=== PATIENT | female | born 1995 | race Caucasian/White ===

== ENCOUNTER → 2016-07-10 | Outpatient (CLI) | payer OTHER ==
[~2016-07-10] MED LIST: ACET-2650 PO; ACET250T3 PO; ACET500C21 PO; AMIT25TA9 PO; AMLO10TA2 PO; AMLO5TAB2 PO; AMOX-358 PO; AMOX500C2 PO; ASPI-587 PO; CALC-20 PO; CALC-783 PO; CARB15DR78 OU; CARV12.53 PO; CARV25TA PO; CEFU500T5 PO; CLCX100C PO; ERGO500028 PO; ESOM20CA32 PO; FERR-57 PO; FLUO10CA19 PO; FLUT16SP22 NS; FURO40TA4 PO; GABA-488 PO; HYDR-3923 PO; HYDR200T46 PO; ISOM1CAP PO; LEVO500T69 PO; LISI-556 PO; LISI10TA2 PO; LORA5TAB9 PO; MYCO500T3 PO; NORT25CA PO; OMEP20CA6 PO; ONDA4TAB8 PO; POTA20TA15 PO; POTA2TAB2 PO; PRD10T PO; PRED10TA PO; PREG75CA PO; RT-ALBUINH INH; SUCR1TAB PO; SULF1TAB35 PO; TACR0.5C6 PO; TRAM50TA2 PO; TRAZ-144 PO; TRAZ-28 PO; [UNRECOGNIZED DRUG - OTHER] IV
--- OUTSIDE RECORDS SUMMARY | 2016-07-10 12:00 | XMS REPORT | Continuity of Care Document ---
Author Author [facility] Organization [facility] Address Unknown Phone Unavailable Care Team Providers Care Stenotype Machine Operator Name Role Phone Juan Jarvis PCP [phone] Source Comments Some departments are not documenting in the electronic medical record. If you do not see the information that you expected, contact Release of Information in the Health Information Management department at [phone] for further assistance in locating additional records.[facility] Active Allergies and Adverse Reactions No Known [...] Tab 3 05/27/19 Active daily. Hold for , 16 resume 06/03/15 albuterol (VENTOLIN HFA, Inhale [...] by mouth Active (CALCIUM 500 PO) daily. esomeprazole DR(+) Take 20 mg by mouth every Active (NEXIUM) 20 mg capsule morning. hydroxychloroquine Take 200 mg by mouth Active [...] meal and a full glass of water. sulfamethoxazole-trimetho Take 1 Tab by mouth three Active prim (BACTRIM DS) 800-160 times weekly. mg tablet pregabalin (LYRICA) 75 mg Take 1 Cap by mouth at 90 Cap 1 06/11/19 Active capsule bedtime daily. 17 isometh/dichloral/acetam( Take one at the start of 18 Cap 1 07/05/19 Active +) (MIDRIN) 325/65/100 mg a headache, if symptoms 17 capsule not resolved may take another. No more than twice in one day. Indications: MIGRAINE tacrolimus (PROGRAF) 0.5 Take 1 Cap by mouth twice 180 Cap 3 07/09/19 Active mg capsule daily. 17 isometh/dichloral/acetam( Take one at the start of 18 Cap 0 10/11/19 07/05/19 Discontin +) (MIDRIN) 325/65/100 mg a headache, if symptoms 16 17 ued capsule not resolved may take another. No more than twice in one day. Indications: MIGRAINE nortriptyline (PAMELOR) Take 50 mg by mouth at 07/05/19 Discontin 50 mg capsule bedtime daily. 17 ued amoxicillin (AMOXIL) 500 Take 500 mg by mouth 06/11/19 Discontin mg capsule three times daily. 17 ued 03/22/2016 tacrolimus (PROGRAF) 1 mg Take 1 Cap by mouth twice 60 Cap 3 06/25/19 07/05/19 Discontin capsule daily. 17 17 ued Active Problems Problem Noted Date Migraine without aura and without status migrainosus, not intractable 2016 [facility]HELY ([facility]) [facility] [...] anti-cardiolipin antibiody - F/U in November in [place] Most Recent Encounters Date Type Specialty Providers Description 07/09/2016 [facility] Savannah Mcnair MD Chronic kidney disease, Encounter stage 2 (mild) 07/09/2016 Office Visit Allergy,Immunology and Paradise Bradley MD Arrived Rheumatology 07/09/2016 [facility] Savannah Mcnair MD Chronic kidney disease, Encounter stage 2 (mild) 07/09/2016 Office Visit Nephrology Savannah Mcnair MD CKD (chronic kidney disease), stage 2 (mild) (Primary Dx) 07/05/2016 Office Visit Neurology Leandro Dejesus MD Migraine without aura and without status migrainosus, not intractable (Primary Dx) 07/05/2016 Orders Only Nephrology Savannah Mcnair MD Lupus nephritis ([facility]) 07/02/2016 Telephone Nephrology Savannah Mcnair MD Medication Question; Headache; Nausea 06/25/2016 Telephone NephSavannah Graham MD Follow-up Phone Call - Medication adjustment 06/24/2016 Orders Only NephSavannah Graham, MD Lupus nephritis ([facility]) 06/17/2016 Telephone Nephrology Savannah Mcnair MD Results 06/11/2016 [facility] Savannah Mcnair MD Glomerular disease in Encounter systemic lupus erythematosus ([facility]) 06/11/2016 Hospital Radiology Paradise Bradley MD Encounter 06/11/2016 Office Visit Allergy,Immunology and Paradise Bradley MD Lupus nephritis ([facility]) Rheumatology (Primary Dx); Chronic pain of both knees; Systemic lupus erythematosus with glomerular disease, unspecified SLE type 06/11/2016 [facility] Savannah Mcnair MD Glomerular disease in Encounter systemic lupus erythematosus ([facility]) 06/11/2016 Office Visit Nephrology Savannah Mcnair MD Other systemic lupus erythematosus with glomerular disease ([facility]) (Primary Dx); CKD (chronic kidney disease), unspecified stage 06/11/2016 Telephone Allergy,Immunology and Paradise Bradley MD Other Rheumatology 06/11/2016 Orders Only Nephrology Savannah Mcnair MD Lupus nephritis ([facility]) 05/10/2016 Telephone Nephrology Savannah Mcnair MD Labs Only - labs 04/23/2016 Telephone Allergy,Immunology and Paradise Bradley MD Appointment Question Rheumatology Immunizations Name Dates Previously Given Next Due Flu Vaccine Trivalent=>3 01/27/2015 Yo (Preservative Free) Social History Tobacco Use Types Packs/Day Years Used Date Never Smoker Smokeless Tobacco: Never Used Alcohol Use Drinks/Week oz/Week Comments No 0 Standard 0.0 drinks or equivalent Last Filed Vital Signs Vital Sign Reading Time Taken Blood Pressure 138/97 07/09/2016 12:45 PM PARTICIPANT ADMINISTRATOR Pulse 83 07/09/2016 12:45 PM PARTICIPANT ADMINISTRATOR Temperature 36.7 C (98.1 F) 07/09/2016 12:45 PM PARTICIPANT ADMINISTRATOR Respiratory Rate 16 07/09/2016 12:45 PM PARTICIPANT ADMINISTRATOR Height 1.727 m (5' 7.99") 07/09/2016 12:45 PM PARTICIPANT ADMINISTRATOR Weight 116.756 kg (257 lb 6.4 07/09/2016 12:45 PM PARTICIPANT ADMINISTRATOR oz) Body Mass Index 39.15 07/09/2016 12:45 PM PARTICIPANT ADMINISTRATOR Oxygen Saturation 100% 03/28/2016 3:40 PM PARTICIPANT ADMINISTRATOR Plan of Care Date Type Specialty Providers Description 08/27/2016 Appointment Nephrology Savannah Mcnair MD [address] [facility] [address] [place] [address] [phone] (Fax) 08/27/2016 Appointment Allergy,Immunology and Paradise Bradley MD Rheumatology [address] [facility] [address] [place] [address] [phone] (Fax) 01/03/2017 Appointment Neurology Germain Nunez DO [address] [place] [address] [phone] (Fax) Health Maintenance Due Date Last Done Comments Physical (Comprehensive) 11/07/2002 Exam Hpv Vaccines (#1) 11/07/2006 Pertussis Vaccine 11/07/2006 Tetanus Vaccine 11/07/2012 Influenza Vaccine 01/10/2017 01/27/2015 Results from Last 3 Months ALBUMIN (07/09/2016 1:39 PM)Only the most recent of 4 results within the time period is included. Component Value Range Albumin 3.1 (L) 3.5-5.0 G/DL Specimen Blood BASIC METABOLIC PANEL (07/09/2016 1:39 PM)Only the most recent of 5 results within the time period is included. Component Value Range Sodium 137 137-147 MMOL/L Potassium 3.1 (L) 3.5-5.1 MMOL/L Chloride 107 98-110 MMOL/L CO2 23 21-30 MMOL/L Anion Gap 7 3-12 Glucose 93 70-100 MG/DL Blood Urea Nitrogen 12 7-25 MG/DL Creatinine 1.13 (H) 0.4-1.00 MG/DL Calcium 8.4 (L) 8.5-10.6 MG/DL eGFR Non >60Comment: >60 mL/min The eGFR is not validated for use in drug dosing adjustments. Continue to use estimated creatinine clearance per dosing reference text. Please contact the Clinical Pharmacist for questions. eGFR >60Comment: >60 mL/min The eGFR is not validated for use in drug dosing adjustments. Continue to use estimated creatinine clearance per dosing reference text. Please contact the Clinical Pharmacist for questions. Specimen Blood PROTEIN/CR RATIO,UR RAN (07/09/2016 12:14 PM)Only the most recent of 4 results within the time period is included. Component Value Range Protein, Random 1100 MG/DL Creatinine, Random 150 MG/DL Protein/CR ratio 7.3 URINALYSIS, MICROSCOPIC (07/09/2016 12:14 PM)Only the most recent of 5 results within the time period is included. Component Value Range WBCs,UA 0-2 0-2 /HPF RBCs,UA 2-10 0-3 /HPF MucousUA TRACE Hyaline Cast 0-2 Specimen Urine POC URINE DIPSTICK AUTO READ (07/09/2016)Only the most recent of 2 results within the time period is included. Component Value Range Urine Glucose POC norm Urine Bilirubin POC neg Urine Ketone POC neg Urine Specific [place] 1.015 POC Urine Blood POC 50 Urine PH POC 6 Urine Protein POC 500 Urine Urobilinogen POC norm Urine Nitrite POC neg Urine Leukocytes POC neg Specimen Urine URINALYSIS DIPSTICK (07/02/2016)Only the most recent of 3 results within the time period is included. Specimen Urine ANTI-UPPER [place] DNA,TITER (06/11/2016 1:36 PM) Component Value Range Anti-DNA Titer > MV=2867 <10 TITER ANTI-NUCLEAR AB(URSULA)-QUANT (06/11/2016 1:36 PM) Component Value Range URSULA Titer/Pattern > GQ=[id number]: HOMOGENEOUS <80 ANTI-DNA DOUBLE STRAND (06/11/2016 1:36 PM) Component Value Range DNA Double Strand AB SEE TITER <10 TITER Specimen Blood ANTI-NUCLEAR ANTIBODY(URSULA) (06/11/2016 1:36 PM) Component Value Range URSULA Screen SEE TITER <80 TITER Specimen Blood C4 COMPLEMENT 4 (06/11/2016 1:36 PM) Component Value Range Complemnt C4 31.0 10-49 MG/DL Specimen Blood C3 COMPLEMENT 3 (06/11/2016 1:36 PM) Component Value Range Complemnt C3 111.0 88-200 MG/DL Specimen Blood CBC AND DIFF (06/11/2016 1:36 PM) Component Value Range White Blood Cells 5.4 4.5-11.0 K/UL RBC 4.02 4.0-5.0 M/UL Hemoglobin 11.3 (L) 12.0-15.0 GM/DL Hematocrit 32.3 (L) 36-45 % MCV 80.4 80-100 FL MCH 28.1 26-34 PG MCHC 34.9 32.0-36.0 G/DL RDW 14.1 11-15 % Platelet Count 288 150-400 K/UL MPV 8.3 7-11 FL Neutrophils 53 41-77 % Lymphocytes 37 24-44 % Monocytes 8 4-12 % Eosinophils 1 0-5 % Basophils 1 0-2 % Absolute Neutrophil Count 2.90 1.8-7.0 K/UL Absolute Lymph Count 2.00 1.0-4.8 K/UL Absolute Monocyte Count 0.40 0-0.80 K/UL Absolute Eosinophil Count 0.10 0-0.45 K/UL Absolute Basophil Count 0.00 0-0.20 K/UL Specimen Blood KNEE 3 VIEWS BILATERAL (06/11/2016 1:16 PM) Impressions Findings/Impression: 1.Left knee: There are several small scattered eccentric lesions about the left knee with characteristics consistent with nonossifying fibromas. These lesions are sclerotic marginated to varying degrees. The most dominant lesion is in the proximal left fibular metadiaphysis. There is subtle expansion of the cortex overlying the proximal fibular lesion. There are 2 small lesions of the proximal left tibia. A single small 2 moderate size lesion is along the posterior medial aspect of the distal left femoral metadiaphysis. No other osseous lesions. Joint spaces are maintained. Normal alignment. No fractures. No joint effusion. 2.Right knee: There is a moderately proud centrally lucent sclerotic marginated eccentric lesion along the medial aspect of the distal tibial metadiaphysis with subtle expansion of the overlying cortex. Thickened rind of sclerosis forms the periphery of this lesion. There is an eccentric slightly expansile lesion along the medial aspect of the proximal tibial metadiaphysis with a thin line of sclerotic margination and lucent center. These lesions are consistent with nonossifying fibromas. No other osseous lesions. No fractures. Joint spaces maintained. No joint effusion. Normal alignment. Finalized by Esau Matute M.D. on 06/11/2016 1:45 PM. Dictated by Esau Matute M.D. on 06/11/2016 1:33 PM. Narrative Left knee 3 views, right knee 3 views. History: Chronic pain of both knees. Procedure Note Interface, Radiant Results - Tue Jun 11, 2016 1:48 PM PARTICIPANT ADMINISTRATOR Left knee 3 views, right knee 3 views. History: Chronic pain of both knees. IMPRESSION Findings/Impression: 1. Left knee: There are several small scattered eccentric lesions about the left knee with characteristics consistent with nonossifying fibromas. These lesions are sclerotic marginated to varying degrees. The most dominant lesion is in the proximal left fibular metadiaphysis. There is subtle expansion of the cortex overlying the proximal fibular lesion. There are 2 small lesions of the proximal left tibia. A single small 2 moderate size lesion is along the posterior medial aspect of the distal left femoral metadiaphysis. No other osseous lesions. Joint spaces are maintained. Normal alignment. No fractures. No joint effusion. 2. Right knee: There is a moderately proud centrally lucent sclerotic marginated eccentric lesion along the medial aspect of the distal tibial metadiaphysis with subtle expansion of the overlying cortex. Thickened rind of sclerosis forms the periphery of this lesion. There is an eccentric slightly expansile lesion along the medial aspect of the proximal tibial metadiaphysis with a thin line of sclerotic margination and lucent center. These lesions are consistent with nonossifying fibromas. No other osseous lesions. No fractures. Joint spaces maintained. No joint effusion. Normal alignment. Finalized by Esau aMtute M.D. on 06/11/2016 1:45 PM. Dictated by Esau Matute M.D. on 06/11/2016 1:33 PM.
--- NOTE | 2016-07-10 19:39 | Diagnostic Imaging Report ---
INDICATION: Port placement. IMPRESSION: Catheter projects in good alignment. Dictated by: Dictated on workstation # [id number]
== END ==
LOC: RAD 11:56
PROVIDERS: ATTEND Nurse Practitioner Family
DX: Z45.2 Encounter for adjustment and management of vascular access device (principal)
CPT/HCPCS: 71010

== ENCOUNTER 2016-07-15 13:41 | Outpatient (RCR) | payer OTHER ==
--- OUTSIDE RECORDS SUMMARY | 2016-05-10 13:59 | XMS REPORT | Continuity of Care Document ---
Author Author [facility] Organization [facility] Address Unknown Phone Unavailable Care Team Providers Care Charge Aide Name Role Phone Juan Jarvis PCP [phone] Source Comments Some departments are not documenting in the electronic medical record. If you do not see the information that you expected, contact Release of Information in the Health Information Management department at [phone] for further assistance in locating additional records.[facility] Active Allergies and Adverse Reactions No Known Allergies Current Medications Prescription Sig. Disp. Refills Start End Date Status Date ondansetron (ZOFRAN ODT) Take 4 mg by mouth every Active 4 mg rapid dissolve 8 hours as needed for tablet Nausea. FLUoxetine (PROZAC) 10 mg Take 10 mg by mouth Active capsule daily. ergocalciferol (VITAMIN Take 50,000 Units by Active D-2) 50,000 unit capsule mouth every 7 days. Carboxymethylcellulose-Gl Apply 1 Drop to both eyes Active ycern 0.5-0.9 % drop twice daily. aspirin EC 81 mg tablet Take 1 Tab by mouth 90 Tab 3 05/27/19 Active daily. Hold for now, 16 resume 06/03/15 albuterol (VENTOLIN HFA, Inhale 1-2 Puffs by mouth Active PROAIR HFA) 90 into the lungs every 4-6 mcg/actuation inhaler hours as needed for Wheezing. traZODone (DESYREL) 50 mg Take 50-100 mg by mouth Active tablet at bedtime daily. acetaminophen SR(+) Take 650 mg by mouth Active (TYLENOL) 650 mg tablet every 6 hours as needed for Pain. CALCIUM CARBONATE Take 2 Each by mouth Active (CALCIUM 500 PO) daily. isometh/dichloral/acetam( Take one at the start of 18 Cap 0 10/11/19 Active +) (MIDRIN) 325/65/100 mg a headache, if symptoms 16 capsule not resolved may take another. No more than twice in one day. Indications: MIGRAINE esomeprazole DR(+) Take 20 mg by mouth every Active (NEXIUM) 20 mg capsule morning. nortriptyline (PAMELOR) Take 50 mg by mouth at Active 50 mg capsule bedtime daily. hydroxychloroquine Take 200 mg by mouth Active (PLAQUENIL) 200 mg tablet twice daily. Take with food. amLODIPine (NORVASC) 10 Take 1 Tab by mouth 90 Tab 3 01/04/20 Active mg tablet daily. 16 carvedilol (COREG) 12.5 Take 1 Tab by mouth twice 90 Tab 1 02/12/20 Active mg tablet daily. Take with food. 16 predniSONE (DELTASONE) 20 Take 3 Tabs by mouth 90 Tab 3 02/12/20 Active mg tablet daily with breakfast. 16 hydrALAZINE (APRESOLINE) Take 1 Tab by mouth three 60 Tab 0 02/12/20 Active 25 mg tablet times daily as needed 16 (for systolic blood pressures > 170). furosemide (LASIX) 80 mg Take 1 Tab by mouth twice 180 Tab 2 02/13/20 Active tablet daily. 16 lisinopril (PRINIVIL; Take 10 mg by mouth Active ZESTRIL) 5 mg tablet daily. potassium chloride SR Take 20 mEq by mouth Active (K-DUR) 20 mEq tablet daily. Take with a meal and a full glass of water. amoxicillin (AMOXIL) 500 Take 500 mg by mouth Active mg capsule three times daily. 03/22/2016 sulfamethoxazole-trimetho Take 1 Tab by mouth three Active prim (BACTRIM DS) 800-160 times weekly. mg tablet Active Problems Problem Noted Date ASHELY (acute kidney injury) ([facility]) 12/28/2015 Anemia 12/28/2015 IIH (idiopathic intracranial hypertension) 10/16/2015 Stage IV lupus nephritis (WHO) ([facility]) 02/10/2015 Sepsis ([facility]) 12/23/2014 Nephrotic range proteinuria 12/10/2014 Pyuria, sterile 12/10/2014 Hematuria 12/10/2014 HTN (hypertension) 12/10/2014 Lupus (systemic lupus erythematosus) ([facility]) 09/14/2014 Last Assessment & Plan: Patient with significant flare of lupus symptoms in the last couple of months, though some symptoms may be related to recent illnesses rather than lupus disease - Will start cellcept 500mg BID - Start prednisone 10mg daily; will wean as tolerated when patient back to baseline - Continue Plaquenil - Labs today: lupus panel and anti-cardiolipin antibiody - F/U in November in [place] Most Recent Encounters Date Type Specialty Providers Description 05/10/2016 Telephone NephSavannah Graham MD Labs Only - labs 04/23/2016 Telephone Allergy,Immunology and Paradise Bradley MD Appointment Question Rheumatology 03/28/2016 [facility] Frances Rodriguez MD Odynophagia Encounter 03/28/2016 Endo Rslt Enc Nephrology Savannah Mcnair MD 03/28/2016 Anesthesia Andrew Tamayo MD Event 03/28/2016 Surgery Frances Rodriguez MD ESOPHAGOGASTRODUODENOSCOP Y 03/26/2016 [facility] Savannah Mcnair MD Glomerular disease in Encounter systemic lupus erythematosus 03/26/2016 Office Visit NephSavannah Graham MD Odynophagia ( Primary Dx); Lupus nephritis, ISN/RPS class III ([facility]) 03/20/2016 Orders Only Savannah Castañeda MD Lupus nephritis ([facility]) 03/11/2016 Telephone Savannah Castañeda MD Follow-up Phone Call 03/08/2016 Telephone AllergyImmunology and Paradise Bradley MD Follow- up Phone Call Rheumatology 03/07/2016 Orders Only Savannah Castañeda MD 03/05/2016 Telephone Savannah Castañeda MD Follow-up Phone Call 02/26/2016 Telephone Savannah Castañeda MD Follow-up Phone Call 02/23/2016 Telephone Allergy,Immunology and Paradise Bradley MD Follow- up Phone Call Rheumatology 02/22/2016 Orders Only Savannah Castañeda MD ASHELY (acute kidney injury) ([facility]); Lupus nephritis ([facility]) 02/20/2016 Telephone Savannah Castañeda MD Tremors - hand tremor 02/19/2016 Telephone Savannah Castañeda MD Follow-up Phone Call; General Question 02/14/2016 [facility] Savannah Mcnair MD Glomerular disease in Encounter systemic lupus erythematosus 02/14/2016 Office Visit Allergy,Immunology and Paradise Bradley MD Systemic lupus ([facility]) Rheumatology (Primary Dx); Lupus nephritis ([facility]) 02/14/2016 Office Visit Nephrology Savannah Mcnair MD Lupus nephritis, ISN/RPS class III ([facility]) (Primary Dx); ASHELY (acute kidney injury) ([facility]); CKD (chronic kidney disease) stage 3, GFR 30-59 ml/min; Essential hypertension 02/13/2016 Telephone Nephrology Savannah Mcnair MD Medication Question Immunizations Name Dates Previously Given Next Due Flu Vaccine Trivalent=>3 01/27/2015 Yo (Preservative Free) Social History Tobacco Use Types Packs/Day Years Used Date Never Smoker Smokeless Tobacco: Never Used Alcohol Use Drinks/Week oz/Week Comments No 0 Standard 0.0 drinks or equivalent Last Filed Vital Signs Vital Sign Reading Time Taken Blood Pressure 155/95 03/28/2016 3:40 PM FILM RENTAL CLERK Pulse 75 03/28/2016 3:40 PM FILM RENTAL CLERK Temperature 36.8 C (98.2 F) 03/28/2016 3:20 PM FILM RENTAL CLERK Respiratory Rate 16 02/14/2016 2:38 PM CDT Height 1.727 m (5' 8") 03/28/2016 2:54 PM FILM RENTAL CLERK Weight 110.678 kg (244 lb) 03/28/2016 2:54 PM FILM RENTAL CLERK Body Mass Index 37.11 03/28/2016 2:54 PM FILM RENTAL CLERK Oxygen Saturation 100% 03/28/2016 3:40 PM FILM RENTAL CLERK Plan of Care Date Type Specialty Providers Description 06/11/2016 Appointment Nephrology Savannah Mcnair MD [address] [facility] [address] [place] [address] [phone] (Fax) 06/11/2016 Appointment Allergy,Immunology and Paradise Bradley MD Rheumatology [address] [facility] [address] [place] [address] [phone] (Fax) Health Maintenance Due Date Last Done Comments Physical (Comprehensive) 11/07/2002 Exam Hpv Vaccines (#1) 11/07/2006 Pertussis Vaccine 11/07/2006 Tetanus Vaccine 11/07/2012 Influenza Vaccine 01/11/2016 01/27/2015 Procedures from Last 3 Months Procedure Name Priority Date/Time Associated Diagnosis Comments ESOPHAGOGASTRODUODENOSCOP 03/28/2016 Odynophagia Y BIOPSY 3:00 PM FILM RENTAL CLERK ESOPHAGOGASTRODUODENOSCOP 03/28/2016 Odynophagia Y 3:00 PM FILM RENTAL CLERK PROCEDURES-SCAN 02/13/2016 Results for this 2:05 PM CDT procedure are in the results section. PROCEDURES-SCAN 02/13/2016 Results for this 2:04 PM CDT procedure are in the results section. PROCEDURES-SCAN 02/10/2016 Results for this 11:09 AM CDT procedure are in the results section. Results from Last 3 Months SURGICAL PATHOLOGY (03/28/2016 3:53 PM) Component Value Range PATHOLOGY REPORT [facility] [email or web address] Emely Washington MD, PhD, Director of Anatomic Pathology Department of Pathology and Laboratory Medicine [address] [place] [id number] Surgical Pathology Office: [phone] SURGICAL PATHOLOGY REPORT NAME: AMELIE DE PAZ SURG PATH #: [id number] MR #: [id number] SPECIMEN CLASS: SR BILLING #: [id number] ALT ID #: LOCATION: [facility] DATE OF PROCEDURE: 03/28/2016 AGE: 20 SEX: F DATE RECEIVED: 03/28/2016 : 1995 TIME RECEIVED: 15:53 PHYSICIAN: FRANCES RODRIGUEZ DATE OF REPORT: 04/01/2016 COPY TO: DATE OF PRINTIN04/01/2016 ################################################## ###################### Final Diagnosis: A. Squamous mucosa, "lower esophageal biopsy", biopsy: Changes consistent with reflux esophagitis. Immunostains for CMV, HSV1, and HSV2 are negative. B. Squamous mucosa, "mid esophageal biopsy", biopsy: Active esophagitis with moderate acute inflammation. Immunostains for CMV, HSV1, and HSV2 are negative. PAS stain is negative for fungal organisms. Attestation: By this signature, I attest that I have personally formulated the final interpretation expressed in this report and that the above diagnosis is based upon my examination of the slides and/or other material indicated in this report. +++Electronically Signed Out By+++ usha/03/29/2016 Interpreted by: Divya Duran MD Resident 04/01/2016 ################################################## ###################### Material Received: A: lower esophageal biopsy B: mid esophageal biopsy History: 20-year-old female with a clinical history of odynophagia. A. Rule out CMV, HSV. B. Rule out ollie, CMV, HSV. Gross Description: A. Received in formalin labeled "lower esophagus ulcer biopsies" is a 0.8 x 0.4 x 0.1 cm aggregate of cervantes-brown soft tissue fragments. The specimen is entirely submitted in cassette A1. (jdn) B. Received in formalin labeled "mid esophagus biopsies" is a 0.9 x 0.3 x 0.1 cm aggregate of cervantes-brown soft tissue fragments. The specimen is entirely submitted in cassette B1. (jdn) jdn2/03/28/2016 Micah Day MD Resident If immunohistochemical stains and/or in situ hybridization are cited in this report, the performance characteristics were determined by the Department of Pathology and Laboratory Medicine of the [facility] ([employer]) in compliance with CLIA'88 regulations. Some of these tests rely on the use of "analyte specific reagents" and are subject to specific labeling requirements by the FDA. Known positive and negative control tissues demonstrate appropriate staining. This testing was developed by the Department of Pathology and Laboratory Medicine of the [facility]. It has not been cleared or approved by the FDA. The FDA has determined that such clearance or approval is not necessary. EGD (03/28/2016 2:56 PM) Component Value Range Provation Report Patient Name: Samm Kinsey Procedure Date: 03/28/2016 2:56 PM [facility]: [id number] Date of : 1995 Gender: Female Attending Physician: Frances Rodriguez MD Procedure: Upper GI endoscopy Indications: Dy sphagia, Odynophagia Providers: Frances Rodriguez MD (Doctor), Domenica Crespo (Nurse), Andrew Dc, Manager Talent Acquisition (Manager Talent Acquisition) Referring Physician: Savannah Mcnair Medications: Pr opofol per Anesthesia Complications: No immediate complications. Estimated blood loss: Minimal. Procedure: Pre-Anesthesia Assessment: - Prior to the procedure, a History and Physical was performed, and patient medications, allergies and sensitivities were reviewed. The patient's tolerance of previous anesthesia was reviewed. - The risks and benefits of the procedure and the sedation options and risks were discussed with the patient. All questions were answered and informed consent was obtained. - Patient identification and proposed procedure were verified prior to the procedure by the physician and the nurse. The procedure was verified in the procedure room. - Prior to the procedure, a History and Physical was performed, and patient medications and allergies were reviewed. The patient's tolerance of previous anesthesia was also reviewed. The risks and benefits of the procedure and the sedation options and risks were discussed with the patient. All questions were answered, and informed consent was obtained. Prior Anticoagulants: The patient has taken aspirin, last dose was 2 days prior to procedure. ASA Grade Assessment: III - A patient with severe systemic disease. After reviewing the risks and benefits, the patient was deemed in satisfactory condition to undergo the procedure. After obtaining informed consent, the endoscope was passed under direct vision. Throughout the procedure, the patient's blood pressure, pulse, and oxygen saturations were monitored continuously. The Endoscope [id number] was introduced through the mouth, and advanced to the third part of duodenum. The upper GI endoscopy was accomplished without difficulty. The patient tolerated the procedure well. Findings: LA Grade B (one or more mucosal breaks greater than 5 mm, not extending between the tops of two mucosal folds) esophagitis with no bleeding was found in the lower third of the esophagus. Biopsies were taken with a cold forceps for histology. White nummular lesions were noted in the middle third of the esophagus. Biopsies were taken with a cold forceps for histology. A 2 cm hiatus hernia was present. The entire examined stomach was normal. The examined duodenum was normal. Impression: - LA Grade B esophagitis. Biopsied. - White nummular lesions in esophageal mucosa. Biopsied. - 2 cm hiatus hernia. - Normal stomach. - Normal examined duodenum. Estimated Blood Loss: Estimated blood loss was minimal. Recommendation: - Await pathology results. - Repeat the upper endoscopy if symptoms persist after increased PPI therapy. - Increase Nexium (esomeprazole) 20 mg PO BID for 8 weeks, then continue daily. - Patient has a contact number available for emergencies. The signs and symptoms of potential delayed complications were discussed with the patient. Return to normal activities tomorrow. Written discharge instructions were provided to the patient. - Return to normal activities tomorrow. - Resume previous diet. - Continue present medications. - Resume aspirin at prior dose today. Scope In: 3:05:14 PM Scope Out: 3:12:40 PM Total Procedure Duration Time 0 hours 7 minutes 26 seconds Procedure Code(s): --- Professional --- 28315, Esophagogastroduodenoscopy, flexible, transoral; with biopsy, single or multiple Diagnosis Code(s): --- Professional --- K20.9, Esophagitis, unspecified K22.8, Other specified diseases of esophagus K44.9, Diaphragmatic hernia without obstruction or gangrene R13.10, Dysphagia, unspecified CPT copyright 2015 [employer]. All rights reserved. The codes documented in this report are preliminary and upon jail manager review may be revised to meet current compliance requirements. Attending Participation: I personally performed the entire procedure. MD Frances Cuellar MD 03/28/2016 3:26:54 PM The attending physician has electronically signed and finalized this document. Number of Addenda: 0 Note Initiated On: 03/28/2016 2:56 PM PROTEIN/CR RATIO,UR RAN (03/26/2016 11:01 AM)Only the most recent of 2 results within the time period is included. Component Value Range Protein, Random 2520 MG/DL Creatinine, Random 213 MG/DL Protein/CR ratio 11.8 Specimen Urine ANTI-CAMPO DNA,TITER (03/26/2016 10:59 AM)Only the most recent of 2 results within the time period is included. Component Value Range Anti-DNA Titer 80 (H) <10 TITER ANTI-NUCLEAR AB(URSULA)-QUANT (03/26/2016 10:59 AM)Only the most recent of 2 results within the time period is included. Component Value Range URSULA Titer/Pattern 640 (H)Comment: HOMOGENEOUS <80 ANTI-DNA DOUBLE STRAND (03/26/2016 10:59 AM)Only the most recent of 2 results within the time period is included. Component Value Range DNA Double Strand AB SEE TITER <10 TITER Specimen Blood ANTI-NUCLEAR ANTIBODY(URSULA) (03/26/2016 10:59 AM)Only the most recent of 2 results within the time period is included. Component Value Range URSULA Screen SEE TITER <80 TITER Specimen Blood COMPLEMENT, TOTAL (CH50) (03/26/2016 10:59 AM)Only the most recent of 2 results within the time period is included. Component Value Range Complement CH50 85Comment: 41-95 U/mL CH50 INTERPRETATION <41 LOW 41-95 NORMAL >95 HIGH Specimen Blood C4 COMPLEMENT 4 (03/26/2016 10:59 AM)Only the most recent of 2 results within the time period is included. Component Value Range Complemnt C4 58.0 (H) 10-49 MG/DL Specimen Blood C3 COMPLEMENT 3 (03/26/2016 10:59 AM)Only the most recent of 2 results within the time period is included. Component Value Range Complemnt C3 117.0 88-200 MG/DL Specimen Blood ALBUMIN (03/26/2016 10:59 AM) Component Value Range Albumin 2.5 (L) 3.5-5.0 G/DL Specimen Blood CBC AND DIFF (03/26/2016 10:59 AM)Only the most recent of 4 results within the time period is included. Component Value Range White Blood Cells 4.7 4.5-11.0 K/UL RBC 3.62 (L) 4.0-5.0 M/UL Hemoglobin 10.3 (L) 12.0-15.0 GM/DL Hematocrit 30.3 (L) 36-45 % MCV 83.7 80-100 FL MCH 28.3 26-34 PG MCHC 33.8 32.0-36.0 G/DL RDW 16.4 (H) 11-15 % Platelet Count 229 150-400 K/UL MPV 7.6 7-11 FL Neutrophils 33 (L) 41-77 % Lymphocytes 56 (H) 24-44 % Monocytes 9 4-12 % Eosinophils 1 0-5 % Basophils 1 0-2 % Absolute Neutrophil Count 1.50 (L) 1.8-7.0 K/UL Absolute Lymph Count 2.60 1.0-4.8 K/UL Absolute Monocyte Count 0.40 0-0.80 K/UL Absolute Eosinophil Count 0.10 0-0.45 K/UL Absolute Basophil Count 0.00 0-0.20 K/UL Specimen Blood BASIC METABOLIC PANEL (03/26/2016 10:59 AM)Only the most recent of 8 results within the time period is included. Component Value Range Sodium 135 (L) 137-147 MMOL/L Potassium 3.6 3.5-5.1 MMOL/L Chloride 107 98-110 MMOL/L CO2 20 (L) 21-30 MMOL/L Anion Gap 8 3-12 Glucose 82 70-100 MG/DL Blood Urea Nitrogen 13 7-25 MG/DL Creatinine 1.66 (H) 0.4-1.00 MG/DL Calcium 7.8 (L) 8.5-10.6 MG/DL eGFR Non 39 (L)Comment: >60 mL/min The eGFR is not validated for use in drug dosing adjustments. Continue to use estimated creatinine clearance per dosing reference text. Please contact the Clinical Pharmacist for questions. eGFR 48 (L)Comment: >60 mL/min The eGFR is not validated for use in drug dosing adjustments. Continue to use estimated creatinine clearance per dosing reference text. Please contact the Clinical Pharmacist for questions. Specimen Blood POC URINE DIPSTICK AUTO READ (03/26/2016)Only the most recent of 2 results within the time period is included. Component Value Range Urine Glucose POC norm Urine Bilirubin POC neg Urine Ketone POC neg Urine Specific [place] 1.015 POC Urine Blood POC 250 Urine PH POC 5 Urine Protein POC 500 Urine Urobilinogen POC norm Urine Nitrite POC neg Urine Leukocytes POC neg Specimen Urine COMPREHENSIVE METABOLIC PANEL (03/22/2016)Only the most recent of 2 results within the time period is included. Component Value Range Sodium 131 (L) Potassium 4.1 Chloride 106 CO2 18 (L) Blood Urea Nitrogen 14 Creatinine 1.6 (H) Glucose 84 Calcium 8.2 (L) Total Protein 4.5 (L) Total Bilirubin 3 Albumin 2.6 (L) Alk Phosphatase 39 AST (SGOT) 16 ALT (SGPT) 15 eGFR Non 44 (L) Specimen Blood MAGNESIUM (03/05/2016)Only the most recent of 2 results within the time period is included. Component Value Range Magnesium 2.1 Specimen Blood PROCEDURES-SCAN (02/13/2016 2:05 PM) Narrative Ordered by an unspecified provider. PROCEDURES-SCAN (02/13/2016 2:04 PM) Narrative Ordered by an unspecified provider. POC GLUCOSE (02/12/2016 8:34 AM)Only the most recent of 11 results within the time period is included. Component Value Range Glucose, POC 147 (H) 70-100 MG/DL CBC (02/12/2016 5:47 AM)Only the most recent of 4 results within the time period is included. Component Value Range White Blood Cells 10.5 4.5-11.0 K/UL RBC 3.25 (L) 4.0-5.0 M/UL Hemoglobin 9.2 (L) 12.0-15.0 GM/DL Hematocrit 27.0 (L) 36-45 % MCV 83.1 80-100 FL MCH 28.2 26-34 PG MCHC 34.0 32.0-36.0 G/DL RDW 16.1 (H) 11-15 % Platelet Count 160 150-400 K/UL MPV 8.2 7-11 FL Specimen Blood PHOSPHORUS (02/12/2016 4:45 AM)Only the most recent of 3 results within the time period is included. Component Value Range Phosphorus 5.8 (H) 2.0-4.0 MG/DL [id number] RBC (02/12/2016 4:45 AM) Component Value Range G6PD, Quantitative 12.3Comment: Reference range: 8.8 to 13.4 Unit: U/g Hb [facility] Specimen Blood PROCEDURES-SCAN (02/10/2016 11:09 AM) Narrative Ordered by an unspecified provider. UA REFLEX CULTURE LABEL (02/09/2016 11:20 AM) Component Value Range UA Reflex Culture LAB LABEL Specimen Urine URINALYSIS MICROSCOPIC REFLEX TO CULTURE (02/09/2016 11:20 AM) Component Value Range WBCs,UA 0-2 0-2 /HPF RBCs,UA 20-50 0-3 /HPF Comment,UA Urine submitted for reflex culture if criteria are met:WBC>10, positive nitrite and/or positive leukocyte esterase. If quantity is not sufficient, an addendum will follow. MucousUA TRACE Squamous Epithelial Cells 0-2 0-5 Hyaline Cast 5-10 Specimen Urine URINALYSIS DIPSTICK REFLEX TO CULTURE (02/09/2016 11:20 AM) Component Value Range Color,UA YELLOW Turbidity,UA 1+ (A) CLEAR-CLEAR Specific [place]-Urine 1.017 1.003-1.035 pH,UA 6.0 5.0-8.0 Protein,UA 3+ (A) NEG-NEG Glucose,UA 1+ (A) NEG-NEG Ketones,UA NEG NEG-NEG Bilirubin,UA NEG NEG-NEG Blood,UA 1+ (A) NEG-NEG Urobilinogen,UA NORMAL NORM-NORMAL Nitrite,UA NEG NEG-NEG Leukocytes,UA NEG NEG-NEG Urine Ascorbic Acid, UA NEG NEG-NEG Specimen Urine UREA NITROGEN-URINE RANDOM (02/09/2016 11:20 AM) Component Value Range Urea Nitrogen 593 MG/DL Specimen Urine SODIUM-URINE RANDOM (02/09/2016 11:20 AM) Component Value Range Sodium, Random 57 MMOL/L Specimen Urine CREATININE-URINE RANDOM (02/09/2016 11:20 AM) Component Value Range Creatinine, Random 99 MG/DL Specimen Urine TROPONIN-I (02/09/2016 7:52 AM)Only the most recent of 2 results within the time period is included. Component Value Range Troponin-I <0.01 0.0-0.05 NG/ML Specimen Blood PERIPHERAL SMEAR (02/09/2016 5:15 AM) Component Value Range Peripheral Smear Microcytic, hypochromic red cells. Consider iron deficiency anemia, anemia of chronic disease, thalassemia, and sideroblastic anemia. GRANULOCYTOSIS WITH LEFT SHIFT. ABSOLUTE LYMPHOCYTOPENIA. PLATELETS APPEAR NORMAL IN NUMBER AND MORPHOLOGY. Pathologist Signature INTERPRETED BY SULY DECKER M.D. By the PATH SIGNATURE ABOVE, I attest that I have personally formulated the final interpretation expressed in this report and that the above diagnosis is based upon my examination of the slides and/or other material indicated in this report. RETICULOCYTE COUNT (02/09/2016 5:15 AM) Component Value Range Retic, Uncorrected 3.6 (H) 0.5-2.0 % Retic, Corrected 2.3 % Retic, Absolute 115.2 (H) 30-94 K/UL SED RATE (02/09/2016 2:05 AM) Component Value Range Sed Rate -ESR 37 (H) 0-20 MM/HR C REACTIVE PROTEIN (CRP) (02/09/2016 2:05 AM) Component Value Range C-Reactive Protein 0.03 <1.0 MG/DL PTT (APTT) (02/09/2016 2:05 AM) Component Value Range APTT 23.6 (L) 24.0-40.0 SEC Specimen Blood PROTIME INR (PT) (02/09/2016 2:05 AM) Component Value Range INR 0.8 0.8-1.2 Specimen Blood
[2016-05-10 14:38] LABS: BILIRUBIN,URINE NEGATIVE (NEGATIVE); KETONES,URINE NEGATIVE (NEGATIVE); LEUKOCYTE ESTERASE ,URINE NEGATIVE (NEGATIVE); NITRITE,URINE NEGATIVE (NEGATIVE); PH,URINE 6 (5-9); PROTEIN,URINE 4+ (NEGATIVE); UROBILINOGEN,URINE NORMAL (NORMAL)
[2016-05-10 14:50] LABS: WBC,URINE RARE /HPF
[2016-05-10 15:55] LABS: ALBUMIN 2.9 G/DL (3.2-4.5); CALCIUM 8.1 MG/DL (8.5-10.1); CREATININE SERUM 1.34 MG/DL (0.60-1.30)
[2016-06-18 13:20] VITALS: BP 147/94
[2016-06-18 13:56] LABS: BILIRUBIN,URINE NEGATIVE (NEGATIVE); KETONES,URINE NEGATIVE (NEGATIVE); LEUKOCYTE ESTERASE ,URINE NEGATIVE (NEGATIVE); NITRITE,URINE NEGATIVE (NEGATIVE); PH,URINE 6.5 (5-9); PROTEIN,URINE 4+ (NEGATIVE); UROBILINOGEN,URINE NORMAL (NORMAL)
[2016-06-18 14:25] LABS: ANION GAP 4 MMOL/L (5-14); BLOOD UREA NITROGEN 16 MG/DL (7-18); BUN/CREATININE RATIO 15; CALCIUM 8.5 MG/DL (8.5-10.1); CARBON DIOXIDE 25 MMOL/L (21-32); CHLORIDE 108 MMOL/L (98-107); CREATININE SERUM 1.04 MG/DL (0.60-1.30); GFR ESTIMATED > 60; GLUCOSE 81 MG/DL (70-105); POTASSIUM 3.3 MMOL/L (3.6-5.0); SODIUM 137 MMOL/L (135-145)
[2016-07-02 11:22] VITALS: BP 128/82
[2016-07-02 12:13] LABS: BILIRUBIN,URINE NEGATIVE (NEGATIVE); KETONES,URINE NEGATIVE (NEGATIVE); LEUKOCYTE ESTERASE ,URINE NEGATIVE (NEGATIVE); NITRITE,URINE NEGATIVE (NEGATIVE); PH,URINE 6 (5-9); PROTEIN,URINE 4+ (NEGATIVE); UROBILINOGEN,URINE NORMAL (NORMAL)
[2016-07-02 12:24] LABS: SQUAMOUS EPITHELIAL CELL,UR 0-2 /HPF; WBC,URINE RARE /HPF
[2016-07-02 12:32] LABS: ALBUMIN 2.8 G/DL (3.2-4.5); CALCIUM 8.2 MG/DL (8.5-10.1); CREATININE SERUM 1.17 MG/DL (0.60-1.30); POTASSIUM 3.3 MMOL/L (3.6-5.0)
[2016-07-02 15:52] LABS: PROTEIN/CREATININE RATIO 4.95
[~2016-07-15] VITALS: Ht 172.7 cm; Wt 115.7 kg
[~2016-07-15 13:41] MED LIST changes: -AMOX500C2 PO; -CARV12.53 PO; -FLUT16SP22 NS; -PREG75CA PO; -TACR0.5C6 PO
[2016-07-15 14:31] LABS: BILIRUBIN,URINE NEGATIVE (NEGATIVE); KETONES,URINE NEGATIVE (NEGATIVE); LEUKOCYTE ESTERASE ,URINE NEGATIVE (NEGATIVE); NITRITE,URINE NEGATIVE (NEGATIVE); PH,URINE 7 (5-9); PROTEIN,URINE 4+ (NEGATIVE); UROBILINOGEN,URINE NORMAL (NORMAL)
[2016-07-15 14:34] VITALS: BP 133/82
[2016-07-15 14:53] LABS: WBC,URINE RARE /HPF
[2016-07-15 14:59] LABS: ANION GAP 9 MMOL/L (5-14); BLOOD UREA NITROGEN 11 MG/DL (7-18); BUN/CREATININE RATIO 11; CALCIUM 8.4 MG/DL (8.5-10.1); CARBON DIOXIDE 24 MMOL/L (21-32); CHLORIDE 108 MMOL/L (98-107); CREATININE SERUM 1.03 MG/DL (0.60-1.30); GFR ESTIMATED > 60; GLUCOSE 87 MG/DL (70-105); POTASSIUM 2.9 MMOL/L (3.6-5.0); SODIUM 141 MMOL/L (135-145)
[2016-07-15 15:00] LABS: ALBUMIN 2.7 G/DL (3.2-4.5)
[2016-07-15 15:16] LABS: PROTEIN/CREATININE RATIO 5.91
[2016-07-16] MEDS ORDERED: TACR0.5C6 PO (09:04)
[2016-07-16] MEDS ORDERED: PREG75CA PO (09:04)
[2016-07-16] MEDS ORDERED: AMOX500C2 PO (09:15)
[2016-07-16] MEDS ORDERED: HYDR200T46 PO (09:15)
[2016-07-16] MEDS ORDERED: CARV12.53 PO (09:15)
[2016-07-16] MEDS ORDERED: FLUT16SP22 NS (09:15)
== END 2016-08-08 | disposition still patient (30) ==
LOC: SDC 13:41
PROVIDERS: ATTEND Internal Medicine Nephrology
DX: M32.14 Glomerular disease in systemic lupus erythematosus (principal)
CPT/HCPCS: 36415; 36591; 80048; 81000; 81002; 82040; 82570; 84156

== ENCOUNTER 2016-07-15 22:12 | Inpatient (IN) | payer OTHER ==
[~2016-07-15] VITALS: Ht 172.7 cm; Wt 118.9 kg
--- OUTSIDE RECORDS SUMMARY | 2016-07-15 22:19 | XMS REPORT | Continuity of Care Document ---
Author Author [facility] Organization [facility] Address Unknown Phone Unavailable Care Team Providers Care Manager Telecom Name Role Phone Juan Jarvis PCP [phone] Source Comments Some departments are not documenting in the electronic medical record. If you do not see the information that you expected, contact Release of Information in the Health Information Management department at [phone] for further assistance in locating additional records.[facility] Active Allergies and Adverse Reactions No Known [...] not intractable 2016 ASHELY (acute kidney injury) ([facility]) 12/28/2015 Anemia 12/28/2015 IIH (idiopathic intracranial hypertension) 10/16/2015 Stage IV lupus nephritis (WHO) ([facility]) 02/10/2015 Sepsis ([facility]) 12/23/2014 Nephrotic range proteinuria 12/10/2014 Pyuria, sterile 12/10/2014 Hematuria 12/10/2014 HTN (hypertension) 12/10/2014 Lupus (systemic lupus erythematosus) ([facility]) 09/14/2014 Last Assessment & Plan: Patient with [...] anti-cardiolipin antibiody - F/U in November in [place] Most Recent Encounters Date Type Specialty Providers Description 07/11/2016 Telephone Allergy,Immunology and Paradise Bardley MD Medication Refill - Rheumatology Lyrica 07/09/2016 [facility] Savannah Mcnair MD Chronic kidney disease, Encounter stage 2 (mild) 07/09/2016 Office Visit Allergy,Immunology and Paradise Bradley MD Lupus nephritis ([facility]) Rheumatology (Primary Dx); Chronic pain of both knees 07/09/2016 [facility] Savannah Mcnair MD Chronic kidney disease, Encounter stage 2 (mild) 07/09/2016 Office Visit Nephrology Savannah Mcnair MD CKD (chronic kidney disease), stage 2 (mild) (Primary Dx) 07/05/2016 Office Visit Neurology Leandro Dejesus MD Migraine without aura and without status migrainosus, not intractable (Primary Dx) 07/05/2016 Orders Only Nephrology Savannah Mcnair MD Lupus nephritis ([facility]) 07/02/2016 Telephone Nephrology Savannah Mcniar MD Medication Question; Headache; Nausea 06/25/2016 Telephone Nephrology Savannah Mcnair MD Follow-up Phone Call - Medication adjustment 06/24/2016 Orders Only Nephrology Savannah Mcnair MD Lupus nephritis ([facility]) 06/17/2016 Telephone Nephrology Savannah Mcnair MD Results 06/11/2016 [facility] Savannah Mcnair MD Glomerular disease in Encounter systemic lupus erythematosus ([facility]) 06/11/2016 Hospital Radiology Paradise Bradley MD Encounter 06/11/2016 Office Visit Allergy,Immunology and Paradies Bradley MD Lupus nephritis ([facility]) Rheumatology (Primary Dx); Chronic pain of both knees; Systemic lupus erythematosus with glomerular disease, unspecified SLE type 06/11/2016 [facility] Savannah Mcnair MD Glomerular disease in Encounter systemic lupus erythematosus ([facility]) 06/11/2016 Office Visit Nephrology Savannah Mcnair MD Other systemic lupus erythematosus with glomerular disease ([facility]) (Primary Dx); CKD (chronic kidney disease), unspecified stage 06/11/2016 Telephone Allergy,Immunology and Paradise Bradley MD Other Rheumatology 06/11/2016 Orders Only Nephrology Savannah Mcnair MD Lupus nephritis ([facility]) 05/10/2016 Telephone Nephrology Savannah Mcnair MD Labs [...] Taken Blood Pressure 138/97 07/09/2016 12:45 PM [employer] Pulse 83 07/09/2016 12:45 PM [facility] [employer] [employer] Temperature 36.7 C (98.1 F) 07/09/2016 12:45 PM [employer] [employer] [employer] Respiratory Rate 16 07/09/2016 12:45 PM [employer] [employer] Height 1.727 m (5' 7.99") 07/09/2016 12:45 PM [employer] Weight 116.756 kg (257 lb 6.4 07/09/2016 12:45 PM [employer] oz) Body Mass Index 39.15 07/09/2016 12:45 PM [employer] Oxygen Saturation 100% 03/28/2016 3:40 PM [employer] Plan of Care Date Type Specialty Providers Description 08/27/2016 Appointment Nephrology Savannah Mcnair MD [address] [facility] [address] [place] [address] [phone] (Fax) 08/27/2016 Appointment Allergy,Immunology and Paradise Bradley MD Rheumatology [address] [facility] [address] [place] [address] [phone] (Fax) 01/03/2017 Appointment Neurology Germain Nunez DO [address] [place] [address] [phone] (Fax) Health Maintenance Due Date Last Done [...] neg Urine Ketone POC neg Urine Specific [place] 1.015 POC Urine Blood POC 50 Urine PH POC 6 Urine Protein POC 500 Urine Urobilinogen POC norm Urine Nitrite POC neg Urine Leukocytes POC neg Specimen Urine URINALYSIS DIPSTICK (07/02/2016)Only the most recent of 3 results within the time period is included. Specimen Urine ANTI-[place] DNA,TITER (06/11/2016 1:36 PM) Component Value Range Anti-DNA Titer > CA=9888 <10 TITER ANTI-NUCLEAR AB(URSULA)-QUANT (06/11/2016 1:36 PM) Component Value Range URSULA Titer/Pattern > SD=[id number]: HOMOGENEOUS <80 ANTI-DNA DOUBLE STRAND (06/11/2016 1:36 [...] - Tue Jun 11, 2016 1:48 PM [employer] Left knee 3 views, right knee 3 [...]
[2016-07-15 23:07] LABS: BILIRUBIN,URINE NEGATIVE (NEGATIVE); KETONES,URINE NEGATIVE (NEGATIVE); LEUKOCYTE ESTERASE ,URINE NEGATIVE (NEGATIVE); NITRITE,URINE NEGATIVE (NEGATIVE); PH,URINE 7 (5-9); PROTEIN,URINE 4+ (NEGATIVE); UROBILINOGEN,URINE NORMAL (NORMAL)
[2016-07-15 23:25] LABS: BASOPHILS % (AUTO) 0 % (0-10); EOSINOPHILS # (AUTO) 0.1 10^3/uL (0.0-0.3); EOSINOPHILS % (AUTO) 1 % (0-10); LYMPHOCYTES % (AUTO) 25 % (12-44); MEAN CORPUSCULAR HEMOGLOBIN 27 PG (25-34); MEAN CORPUSCULAR HGB CONC 34 G/DL (32-36); MEAN CORPUSCULAR VOLUME 78 FL (80-99); MEAN PLATELET VOLUME 10.3 FL (7.4-10.4); MONOCYTES # (AUTO) 0.7 X 10^3 (0.0-1.0); MONOCYTES % (AUTO) 9 % (0-12); NEUTROPHILS # (AUTO) 5.2 X 10^3 (1.8-7.8); NEUTROPHILS % (AUTO) 66 % (42-75); PLATELET COUNT 237 10^3/uL (130-400); RED BLOOD COUNT 3.95 10^6/uL (4.35-5.85); RED CELL DISTRIBUTION WIDTH 14.1 % (10.0-14.5); WHITE BLOOD COUNT 7.9 10^3/uL (4.3-11.0)
[2016-07-15 23:36] LABS: PROTHROMBIN TIME PATIENT 12.4 SEC (12.2-14.7)
[2016-07-15 23:54] LABS: ALANINE AMINOTRANSFERASE 13 U/L (0-55); ALBUMIN 2.7 G/DL (3.2-4.5); ANION GAP 12 MMOL/L (5-14); ASPARTATE AMINO TRANSFERASE 11 U/L (5-34); BILIRUBIN,TOTAL 0.2 MG/DL (0.1-1.0); BLOOD UREA NITROGEN 11 MG/DL (7-18); BUN/CREATININE RATIO 10; CALCIUM 8.1 MG/DL (8.5-10.1); CARBON DIOXIDE 20 MMOL/L (21-32); CHLORIDE 109 MMOL/L (98-107); CREATININE SERUM 1.05 MG/DL (0.60-1.30); GFR ESTIMATED > 60; GLUCOSE 116 MG/DL (70-105); MAGNESIUM 1.8 MG/DL (1.8-2.4); POTASSIUM 2.9 MMOL/L (3.6-5.0); SODIUM 141 MMOL/L (135-145); TOTAL PROTEIN 5.3 G/DL (6.4-8.2)
--- NOTE | 2016-07-15 23:57 | ED General ---
General Chief Complaint: Head/Cervical Problems Stated Complaint: LUPUS FLARE UP/NECK PAIN/HEADACHE Nursing Triage Note: WORSENING PAIN IN NECK, HAS BEEN RUNNING LOW GRADE TEMPS HOME. TEMP UP TO 101.0 YESTERDAY. SAW MATT VILLAFANA AT DR OLIVERA'S OFFICE TODAY. PT IS ON TACROLIMUS AT LOWER DOSE. PT HAD RETUXAN IN JAN. PT HAS HAD A COUPLE ROUNDS OF ZPACK AND FINISHED LAST WEEK. Nursing Sepsis Screen: Possible Sepsis Risk Source of Information: Patient, Family (MOM) History of Present Illness Time Seen by Provider: 22:34 Initial Comments PT ARRIVES VIA POV FROM HOME PT WITH LUPUS WITH NEPHROPATHY--IS FOLLOWED AT PT HAD 2 DOSES OF RITUXIMAB IN , BUT DID NOT SHOW ANY IMPROVEMENT WAS STARTED ON TACROMILUS 06/25/16 BUT WAS STOPPED ON 07/01/16 DUE TO SIDE EFFECTS --MOSTLY SEVERE NAUSEA AND SEVERE HEADACHES SYMPTOMS WENT AWAY WHEN IT WAS DC'D TACROMILUS WAS RESTARTED LAST WEEK AT 1/2 DOSE PT HAS BEEN ON PREDNISONE AND A MONTH AGO, THE DOSE WAS DECREASED TO 20 MG DAILY. PT WAS SEEN BY NEPHROLOGY AT LAST Friday07/09/16 PT WAS SEEN BY NEUROLOGY AT ON Friday07/12/16 FOR ROUTINE FOLLOW UP ON MIGRAINES PT HAS HAD ONGOING SINUS INFECTION FOR A FEW WEEKS--HAS HAD 2 ROUNDS OF ZITHROMAX Z - PACK--FINISHED LAST DOSE 1 WEEK AGO PT STILL WITH SYMPTOMS PT HAS HAD ONGOING FEVER OFF AND ON FOR QUITE SOME TIME--WAS 100.1 ON 09/25 HAD SWEATS ON WAKING THIS AM PT HAS HAD ONGOING HEADACHES AND NECK STIFFNESS, BUT STARTED AGAIN TODAY AND HAS PROGRESSIVELY GOTTEN WORSE PT HAS HAD A SORE THROAT AND CLEAR SINUS DRAINAGE AND A NON-PRODUCTIVE COUGH NO CHEST PAIN OR SHORTNESS OF BREATH C/O BODY ACHES--LEGS, ARMS, BACK, SHOULDERS AND NECK ALL ACHE, IN ADDITION TO HER CHRONIC JOINT PAINS MOM WAS SICK ON Friday07/12/16 WITH "STREP" PT BEGAN FEELING BAD ON Friday07/13/16 PT WAS SEEN BY DR. OLIVERA'S SEARCH ENGINE OPTIMIZATION CONSULTANT TODAY FOR THESE PROBLEMS--OUTPATIENT LAB DONE. TEMP IN OFFICE WAS 99. NO RX'S GIVEN PCP: DR. OLIVERA Allergies and Home Medications Allergies Coded Allergies: No Known Drug Allergies (Unverified , 07/15/16) Home Medications Acetaminophen 650 Mg Tablet.er 1,300 MG PO BID PRN PRN PAIN (Reported) TAKES 2 (650MG) TABLETS Albuterol Sulfate 6.7 Gm Hfa.aer.ad 2 PUFF INH Q6H PRN PRN SHORTNESS OF BREATH ( Reported) Amlodipine Besylate 10 Mg Tablet 10 MG PO DAILY (Reported) Aspirin 81 Mg Tablet.dr 81 MG PO DAILY (Reported) Carboxymethylcellulose Sodium 15 Ml Drops 1-2 DROPS OU QID PRN PRN DRY EYES ( Reported) Carvedilol 25 Mg Tablet 25 MG PO DAILY (Reported) Ergocalciferol 50,000 Unit Capsule 50,000 UNIT PO Th (Reported) Esomeprazole Magnesium 22.3 Mg Capsule.dr 22.3 MG PO DAILY (Reported) Ferrous Sulfate 325 Mg Tablet 325 MG PO DAILY (Reported) Fluoxetine HCl 10 Mg Capsule 10 MG PO DAILY (Reported) Furosemide 40 Mg Tablet 40 MG PO BID (Reported) Gabapentin 300 Mg Capsule 300 MG PO BID (Reported) Hydralazine HCl 25 Mg Tablet 25 MG PO TID PRN PRN BLOOD PRESSURE (Reported) take if systolic BP >170 Isomethept/Dichlphn/Acetaminop 1 Each Capsule 1 CAP PO BID PRN PRN MIGRAINE ( Reported) TAKE 1 CAPSULE AT ONSET OF GARCIA AND MAY REPEAT IF NEEDED, NOT TO EXCEED MORE THAN 2 CAPSULES IN ONE DAY Lisinopril 5 Mg Tablet 15 MG PO DAILY (Reported) take 2 (5mg) tabs Nortriptyline HCl 25 Mg Capsule 50 MG PO HS PRN PRN HEADACHE (Reported) TAKES 2 (25MG) CAPSULES Ondansetron 4 Mg/Udtablet Tab.rapdis 4 MG PO Q6H PRN PRN NAUSEA (Reported) Potassium Chloride 20 Meq Tab.er.prt 20 MEQ PO DAILY (Reported) Prednisone 10 Mg Tab 30 MG PO DAILY (Reported) TAKES 3 (10MG) TABLETS Sulfamethoxazole/Trimethoprim 1 Each Tablet 0.5 TAB PO MoWeFr (Reported) Trazodone HCl 50 Mg Tablet 50-100 MG PO HS (Reported) TAKES 1 TO 2 (50MG) TABLETS Constitutional: see HPI fever EENTM: nose congestion other (SINUS PAIN /DRAINAGE) see HPI throat pain Respiratory: see HPI coughNo short of breath, No wheezing Cardiovascular: no symptoms reported Gastrointestinal: no symptoms reported Genitourinary: no symptoms reported Musculoskeletal: see HPI back pain joint pain muscle pain muscle stiffness neck pain Skin: no symptoms reported Psychiatric/Neurological: See HPI HeadacheDenies Numbness, Denies Paresthesia , Denies Seizure, Denies Tingling, Denies Tremors, Denies Weakness Hematologic/Lymphatic: Anemia Immunological/Allergic: see HPI (IMMUNOSUPPRESSIVE THERAPY) Past Xffnfkh-Ynfoph-Xplrya Hx Patient Social History Alcohol Use: Denies Use Recreational Drug Use: No Smoking Status: Never a Smoker 2nd Hand Smoke Exposure: No Recent Foreign Travel: No Contact w/Someone Who Travel: No Recent Infectious Disease Expo: No Recent Hopitalizations: No Immunizations Up To Date PED Vaccines UTD: Yes Date of Influenza Vaccine: Feb 08, 2016 Seasonal Allergies Seasonal Allergies: No Surgeries HX Surgeries: Yes (kidney bx X3, lumbar puncture X3, WART REMOVAL, EGG RETRIEVAL, PORT RIGHT CHEST) Respiratory Hx Respiratory Disorders: Yes (CPAP) Respiratory Disorders: Sleep Apnea Cardiovascular Hx Cardiac Disorders: Yes Cardiac Disorders: Hypertension Neurological Hx Neurological Disorders: Yes (ELEVATED INTRACRANIAL PRESSURE--OFF MEDICATION APPROXIMATELY 6 MONTHS, OF 07/15/16) Neurological Disorders: Headaches /Migraines Reproductive System : No Hx Reproductive Disorders: No Sexually Transmitted Disease: No HIV/AIDS: No Female Reproductive Disorders: Denies Genitourinary Hx Genitourinary Disorders: Yes (stage 4 kidney disease) Genitourinary Disorders: Renal Failure, UTI-Chronic Gastrointestinal Hx Gastrointestinal Disorders: Yes Gastrointestinal Disorders: Gastroesophageal Reflux Musculoskeletal Hx Musculoskeletal Disorders: Yes (LUPUS) Musculoskeletal Disorders: Arthritis Endocrine Hx Endocrine Disorders: Yes (LUPUS NEPHRITIS) Endocrine Disorders: Lupus HEENT HX ENT Disorders: Yes (GLASSES) Loss of Vision: Denies Hearing Impairment: Denies Cancer Hx Cancer: No Psychosocial Hx Psychiatric Problems: Yes Behavioral Health Disorders: Depression Integumentary HX Skin/Integumentary Disorder: No Blood Transfusions Hx Blood Disorders: Yes (ANEMIA) Adverse Reaction to a Blood Tr: No Family Medical History Significant Family History: No Pertinent Family Hx Family Medial History: Asthma G8 BROTHER G8 BROTHER Diabetes mellitus 19 MOTHER Hypercholesterolemia 19 MOTHER Hypertension 19 MOTHER Physical Exam Vital Signs Vital Sign - Last 12Hours 07/15/16 22:27 Temp 98.6 Pulse 93 Resp 16 B/P 154/112 Pulse Ox 100 O2 Delivery Room Air Capillary Refill : Less Than 3 Seconds General Appearance: No Apparent Distress WD/WN Other (DOES NOT APPEAR ILL) HEENT: PERRL/EOMI TMs Normal Pharyngeal ErythemaNo Photophobia, No Tonsillar Exudate, Other (CLEAR POST NASAL DRAINAGE. MILD SINUS TENDERNESS. ) Neck: Limited Range of Motion Tender Lateral Tender Midline Respiratory: Normal Breath Sounds (BUT DIMINISHED IN BASES) No Accessory Muscle Use No Respiratory Distress Cardiovascular: Regular Rate, Rhythm No Edema No JVD No Murmur Normal Peripheral Pulses Gastrointestinal: Normal Bowel Sounds No Organomegaly No Pulsatile Mass Non Tender Soft Back: No Vertebral Tenderness Extremity: Normal Capillary Refill Normal Inspection Normal Range of Motion Non Tender No Calf Tenderness No Pedal Edema Neurologic/Psychiatric: Alert Oriented x3 No Motor/Sensory Deficits Normal Mood/Affect wood grinder II-XII Norm as Tested Skin: Normal Color Warm/Dry Progress/Results/Core Measures Results/Orders Lab Results Laboratory Tests Test 07/15/16 22:50 07/15/16 22:58 07/15/16 23:15 Range/Units Urine Bacteria TRACE /HPF Urine Bilirubin NEGATIVE NEGATIVE Urine Casts NONE /LPF Urine Clarity CLEAR Urine Color YELLOW Urine Crystals NONE /LPF Urine Culture Indicated NO Urine Glucose (UA) NEGATIVE NEGATIVE Urine Ketones NEGATIVE NEGATIVE Urine Leukocyte Esterase NEGATIVE NEGATIVE Urine Mucus SMALL H /LPF Urine Nitrite NEGATIVE NEGATIVE Urine Protein 4+ NEGATIVE Urine RBC 10-25 H /HPF Urine RBC (Auto) 4+ H NEGATIVE Urine Specific [place] 1.010 L 1.016-1.022 Urine Squamous Epithelial Cells 2-5 /HPF Urine Urobilinogen NORMAL NORMAL MG/DL Urine WBC NONE /HPF Urine pH 7 5-9 Group A Streptococcus Screen NEGATIVE NEGATIVE Activated Partial Thromboplast Time 44 H 24-35 SEC Alanine Aminotransferase (ALT/SGPT) 13 0-55 U/L Albumin 2.7 L 3.2-4.5 G/DL Alkaline Phosphatase 70 40-136 U/L Anion Gap 12 5-14 MMOL/L Aspartate Amino Transf (AST/SGOT) 11 5-34 U/L BUN/Creatinine Ratio 10 Basophils # (Auto) 0.0 0.0-0.1 10^3/uL Basophils (%) (Auto) 0 0-10 % Blood Urea Nitrogen 11 7-18 MG/DL Calcium Level 8.1 L 8.5-10.1 MG/DL Carbon Dioxide Level 20 L 21-32 MMOL/L Chloride Level 109 H 98-107 MMOL/L Creatinine 1.05 0.60-1.30 MG/DL Eosinophils # (Auto) 0.1 0.0-0.3 10^3/uL Eosinophils (%) (Auto) 1 0-10 % Estimat Glomerular Filtration Rate > 60 Glucose Level 116 H 70-105 MG/DL Hematocrit 31 L 35-52 % Hemoglobin 10.5 L 11.5-16.0 G/DL INR Comment 1.0 0.8-1.4 Lactic Acid Level 1.06 0.50-2.00 MMOL/L Lymphocytes # (Auto) 2.0 1.0-4.0 X 10^3 Lymphocytes (%) (Auto) 25 12-44 % Magnesium Level 1.8 1.8-2.4 MG/DL Mean Corpuscular Hemoglobin 27 25-34 PG Mean Corpuscular Hemoglobin Concent 34 32-36 G/DL Mean Corpuscular Volume 78 L 80-99 FL Mean Platelet Volume 10.3 7.4-10.4 FL Monocytes # (Auto) 0.7 0.0-1.0 X 10^3 Monocytes (%) (Auto) 9 0-12 % Monoscreen NEGATIVE NEGATIVE Neutrophils # (Auto) 5.2 1.8-7.8 X 10^3 Neutrophils (%) (Auto) 66 42-75 % Platelet Count 237 130-400 10^3/uL Potassium Level 2.9 L 3.6-5.0 MMOL/L Prothrombin Time 12.4 12.2-14.7 SEC Red Blood Count 3.95 L 4.35-5.85 10^6/uL Red Cell Distribution Width 14.1 10.0-14.5 % Sodium Level 141 135-145 MMOL/L Total Bilirubin 0.2 0.1-1.0 MG/DL Total Protein 5.3 L 6.4-8.2 G/DL White Blood Count 7.9 4.3-11.0 10^3/uL Micro Results Microbiology 07/15/16 Influenza Types A,B Antigen (ELVIN) - Final, Complete My Orders Orders-LORETTA IVAN DO Saline Lock/Iv-Start (07/15/16 22:46) Cbc With Automated Diff (07/15/16 22:46) Comprehensive Metabolic Panel (07/15/16 22:46) Lactic Acid Analyzer (07/15/16 22:46) Magnesium (07/15/16 22:46) Monotest (07/15/16 22:46) Protime With Inr (07/15/16 22:46) Partial Thromboplastin Time (07/15/16 22:46) Rapid Strep A Screen (07/15/16 22:46) Ua Culture If Indicated (07/15/16 22:46) Blood Culture (07/15/16 22:46) Influenza A And B Antigens (07/15/16 22:46) Chest Pa/Lat (2 View) (07/15/16 22:46) Ct Head/Face/Cervical Wo (07/15/16 22:46) Methylprednisolone Sod Succ (Solu-Medrol (07/16/16 00:30) Fentanyl Injection (Sublimaze Injection (07/16/16 00:30) Ceftriaxone Injection (Rocephin Injectio (07/16/16 00:30) 1/2 Ns W/Kcl 20 Meq/L (0.45% Sodium Chlo (07/16/16 00:30) Medications Given in ED Current Medications Medications Dose Ordered Sig/Sultana Route Start Time Stop Time Status Last Admin Dose Admin Ceftriaxone Sodium/Sodium Chloride 50 ml @ 100 mls/hr ONCE ONCE IV 07/16/16 00:30 07/16/16 00:59 DC 07/16/16 00:43 100 MLS/HR Fentanyl Citrate 25 mcg 25 mcg ONCE ONCE IVP 07/16/16 00:30 07/16/16 00:31 DC 07/16/16 00:43 25 MCG Methylprednisolone Sodium Succinate 125 mg ONCE ONCE IVP 07/16/16 00:30 07/16/16 00:31 DC 07/16/16 00:43 125 MG Vital Signs/I&O Vital Sign - Last 12Hours 07/15/16 07/16/16 07/16/16 07/16/16 22:27 00:43 01:15 01:25 Temp 98.6 98.6 98.6 99.2 Pulse 93 86 85 Resp 16 16 20 B/P 154/112 118/77 Pulse Ox 100 97 95 O2 Delivery Room Air Room Air 07/16/16 07/16/16 07/16/16 07/16/16 01:30 02:17 02:45 02:45 Pulse 80 Pulse Ox 96 97 97 O2 Delivery Room Air Blood Pressure Mean: 126 Progress Note : Progress Note NO DETERIORATION IN PT'S CONDITION DURING ER STAY Diagnostic Imaging Comments CXR--RLL INFILTRATE, PENDING RADIOLOGIST REVIEW CT HEAD/MAXILLOFACIALS/CERVICAL SPINE--SINUS DISEASE, OTHERWISE NO ACUTE PROCESS --PER [facility] VIA FAX @ 0011 Reviewed: Reviewed by Me Departure Communication Progress Notes 0015--SPOKE WITH DR. OLIVERA, ACCEPTS PT FOR ADMIT. DOES NOT FEEL THAT LP NEEDS TO BE DONE AT THIS TIME. Impression Impression: Primary Impression: Lupus (systemic lupus erythematosus) Additional Impressions: Lupus nephritis Sinusitis RLL pneumonia Hypokalemia Hypocalcemia Chronic anemia Pharyngitis HTN (hypertension) Disposition: ADMITTED INPATIENT Condition: Stable Decision to Admit Reason: Admit from ER (General) Decision to Admit/Date: Jul 16, 2016 Time/Decision to Admit Time: 00:15 Departure-Patient Inst. Referrals: KATE OLIVERA MD (PCP/Family) Primary Care Physician LORETTA IVAN DO Jul 15, 2016 23:57
[2016-07-16] MEDS ORDERED: fentaNYL INJECTION 100 MCG/2 ML AMP IVP ONE (00:30)
[2016-07-16] MEDS ORDERED: cefTRIAXone INJECTION 1,000 MG in NS (IVPB) 50 ML IV ONE (00:30)
[2016-07-16] MEDS ORDERED: methylPREDNISolone 125 MG (Solu-MEDROL) VIAL IVP ONE (00:30)
[2016-07-16] MEDS ORDERED: 1/2 NS W/KCL 20 MEQ/L 1,000 ML IV SCH (00:30)
[2016-07-16 01:25] VITALS: BP 118/77
[2016-07-16] MEDS: 1/2 NS W/KCL 20 MEQ/L 1,000 ML IV SCH ×3 (02:13→16:56)
[2016-07-16] MEDS ORDERED: CEFEPIME INJECTION 2,000 MG in NS (IVPB) 50 ML IV SCH (02:15)
[2016-07-16] MEDS ORDERED: fentaNYL INJECTION 100 MCG/2 ML AMP IVP PRN (02:15)
[2016-07-16] MEDS ORDERED: ACETAMINOPHEN 500 MG TAB (TYLENOL) PO PRN (02:30)
[2016-07-16] MEDS ORDERED: VANCOMYCIN 1 GM/NS 250 ML IVPB IV SCH ×2 (02:30)
[2016-07-16] MEDS: fentaNYL INJECTION 100 MCG/2 ML AMP IV PRN ×4 (02:33→14:36)
[2016-07-16] MEDS: CALCIUM CARBONATE 500 MG (TUMS) TAB.CHEW PO SCH ×3 (02:43→21:09)
[2016-07-16] MEDS: CEFEPIME INJECTION 2,000 MG in NS (IVPB) 50 ML IV SCH ×2 (02:44→14:30)
[2016-07-16] MEDS ORDERED: CATHETER FLUSH 10 ML SYR IV PRN (02:45)
[2016-07-16] MEDS: LEVOFLOXACIN 750 MG/D5W 150 ML PRE-MIX IV SCH (03:36)
[2016-07-16] MEDS ORDERED: RT-ALBUTEROL SULF 2.5 MG/3 ML PRE-MIX VIAL INH PRN (04:00)
[2016-07-16] MEDS: methylPREDNISolone 125 MG (Solu-MEDROL) VIAL IV SCH ×3 (06:29→18:41)
[2016-07-16] MEDS: CATHETER FLUSH 10 ML SYR IV SCH ×3 (06:33→22:00)
[2016-07-16 07:03] LABS: BASOPHILS % (AUTO) 0 % (0-10); EOSINOPHILS % (AUTO) 0 % (0-10); LYMPHOCYTES # (AUTO) 1.2 X 10^3 (1.0-4.0); LYMPHOCYTES % (AUTO) 13 % (12-44); MEAN CORPUSCULAR HEMOGLOBIN 26 PG (25-34); MEAN CORPUSCULAR HGB CONC 34 G/DL (32-36); MEAN CORPUSCULAR VOLUME 78 FL (80-99); MEAN PLATELET VOLUME 10.4 FL (7.4-10.4); MONOCYTES # (AUTO) 0.1 X 10^3 (0.0-1.0); MONOCYTES % (AUTO) 1 % (0-12); NEUTROPHILS % (AUTO) 86 % (42-75); PLATELET COUNT 267 10^3/uL (130-400); RED BLOOD COUNT 4.01 10^6/uL (4.35-5.85); WHITE BLOOD COUNT 9.3 10^3/uL (4.3-11.0)
[2016-07-16 07:22] LABS: ALANINE AMINOTRANSFERASE 13 U/L (0-55); ALBUMIN 2.8 G/DL (3.2-4.5); ANION GAP 10 MMOL/L (5-14); ASPARTATE AMINO TRANSFERASE 11 U/L (5-34); BILIRUBIN,TOTAL 0.2 MG/DL (0.1-1.0); BLOOD UREA NITROGEN 10 MG/DL (7-18); BUN/CREATININE RATIO 11; CALCIUM 8.6 MG/DL (8.5-10.1); CARBON DIOXIDE 21 MMOL/L (21-32); CHLORIDE 109 MMOL/L (98-107); CREATININE SERUM 0.95 MG/DL (0.60-1.30); GFR ESTIMATED > 60; GLUCOSE 146 MG/DL (70-105); POTASSIUM 3.4 MMOL/L (3.6-5.0); SODIUM 140 MMOL/L (135-145); TOTAL PROTEIN 5.7 G/DL (6.4-8.2)
--- NOTE | 2016-07-16 08:09 | Diagnostic Imaging Report ---
PROCEDURE: CT head, face, and cervical spine without contrast. TECHNIQUE: Multiple contiguous axial images were obtained through the head, neck, and facial bones without the use of intravenous contrast. Sagittal and coronal reformations through the cervical spine and facial bones were also performed. INDICATION: Lupus, head and neck pain. There are no previous studies available for comparison. CT HEAD: There is no mass, shift of midline or hemorrhage to suggest an acute intracranial abnormality. The ventricles are not abnormally dilated. The bone windows show no sign of a fracture or of a destructive lesion. The orbits are symmetrical and within normal limits. There is mucosal thickening and perhaps small retention cysts involving both maxillary sinuses. IMPRESSION: 1. There is no evidence for an acute intracranial abnormality. 2. If there is clinical concern regarding an underlying abnormality persist, then MRI would be recommended for further study. CT CERVICAL SPINE: The reconstructed parasagittal images show the vertebral body heights and alignment to be generally within normal limits. The intervertebral spaces are fairly well-maintained. There is no fracture, dislocation or acute bony abnormality evident. There is no evidence for a spinal stenosis or nerve encroachment at any level. There is no sign of a retropharyngeal edema. The thyroid gland is unremarkable. The lung apices are clear. There does appear to be a central venous catheter in place on the right. IMPRESSION: There is no evidence for an acute bony abnormality of the cervical spine. Dictated by: Dictated on workstation # [id number]
[2016-07-16 08:10] VITALS: BP 137/77
--- NOTE | 2016-07-16 08:25 | Diagnostic Imaging Report ---
EXAMINATION: PA and lateral chest obtained at 1146h. INDICATION: Lupus The heart size is within normal limits and stable when compared to 07/10/16. The right-sided Port-A-Cath seen on the prior study is again evident and no different. There are a few crowded bronchovascular markings in the right infrahilar region. These seem similar to the prior exam. There is no new area of pneumonia identified and there is no sign of a pleural effusion. The mediastinum is not widened. The osseous structures are intact. IMPRESSION: Stable chest. There has been no adverse change since the prior exam. Dictated by: Dictated on workstation # [id number]
[2016-07-16] MEDS ORDERED: CEFEPIME 2 GM/NS 50 ML IVPB IV SCH ×2 (09:00)
[2016-07-16] MEDS ORDERED: VANCOMYCIN INJECTION 1,750 MG in NS IV 500 ML 500 ML IV SCH (09:00)
--- NOTE | 2016-07-16 09:03 | History & Physicial ---
History of Present Illness History of Present Illness Reason for visit/HPI PT IS A 20 Y/O FEMALE WHO IS KNOWN TO ME FROM CLINIC. SHE REPORTS SEVERE HEADACHE, AND NAUSEA THAT WAS INTRACTABLE. SHE HAS HISTORY OF LUPUS, HAS RECENTLY BEEN ON MEDICATION WHICH INDUCED A SEVERAL DAY HEADACHE, THIS MEDICATION WAS STOPPED DUE TO THE MIGRAINES, AND THEN RESTARTED BY HER SPECIALIST AT AT 1/2 THE DOSE. HUDSON TOOK THE FIRST PARTIAL DOSE ABOUT 1 DAY PRIOR TO THE HEADACHE, AND SHE HAS BEEN ILL EVER SINCE RESTARTING THIS MEDICATION. Date of Admission Jul 16, 2016 at 00:47 I consulted on this patient on 07/16/16 09:03 Attending Physician Kate Jarvis MD Admitting Physician Kate Jarvis MD Consult Allergies and Home Medications Allergies Coded Allergies: No Known Drug Allergies (Unverified , 07/15/16) Home Medications Acetaminophen 650 Mg Tablet.er 1,300 MG PO BID PRN PRN PAIN (Reported) TAKES 2 (650MG) TABLETS Albuterol Sulfate 6.7 Gm Hfa.aer.ad 2 PUFF INH Q6H PRN PRN SHORTNESS OF BREATH ( Reported) Amlodipine Besylate 10 Mg Tablet 10 MG PO DAILY (Reported) Amoxicillin 500 Mg Capsule 500 MG PO TID (Reported) 10 DAY SUPPLY FILLED 07-15-16 Aspirin 81 Mg Tablet.dr 81 MG PO DAILY (Reported) Carboxymethylcellulose Sodium 15 Ml Drops 1-2 DROPS OU QID PRN PRN DRY EYES ( Reported) Carvedilol 12.5 Mg Tablet 12.5 MG PO BID (Reported) Ergocalciferol 50,000 Unit Capsule 50,000 UNIT PO Th (Reported) Esomeprazole Magnesium 22.3 Mg Capsule.dr 22.3 MG PO BID (Reported) Fluoxetine HCl 10 Mg Capsule 10 MG PO DAILY (Reported) Fluticasone Propionate 16 Gm [place].susp 1 SPRAY NS BID PRN PRN CONGESTION ( Reported) Furosemide 40 Mg Tablet 20 MG PO DAILY (Reported) Hydralazine HCl 25 Mg Tablet 25 MG PO TID PRN PRN BLOOD PRESSURE (Reported) take if systolic BP >170 Hydroxychloroquine Sulfate 200 Mg Tablet 200 MG PO BID (Reported) Isomethept/Dichlphn/Acetaminop 1 Each Capsule 1 CAP PO BID PRN PRN MIGRAINE ( Reported) TAKE 1 CAPSULE AT ONSET OF GARCIA AND MAY REPEAT IF NEEDED, NOT TO EXCEED MORE THAN 2 CAPSULES IN ONE DAY Lisinopril 5 Mg Tablet 30 MG PO DAILY (Reported) TAKES 6 (5MG) TABLETS Ondansetron 4 Mg/Udtablet Tab.rapdis 4 MG PO Q6H PRN PRN NAUSEA (Reported) Potassium Chloride 20 Meq Tab.er.prt 20 MEQ PO DAILY (Reported) Prednisone 10 Mg Tab 20 MG PO DAILY (Reported) Pregabalin 75 Mg Capsule 75 MG PO HS (Reported) Sulfamethoxazole/Trimethoprim 1 Each Tablet 0.5 TAB PO MoWeFr (Reported) Trazodone HCl 50 Mg Tablet 50-100 MG PO HS (Reported) TAKES 1 TO 2 (50MG) TABLETS Past Kfgktsm-Zbxyxr-Dwbrrh Hx Patient Social History Marrital Status: single Living Status: LIVES AT HOME WITH HER MOM Alcohol Use: Denies Use Recreational Drug Use: No Smoking Status: Never a Smoker 2nd Hand Smoke Exposure: No Physical Abuse Screen: No Sexual Abuse: No Recent Foreign Travel: No Contact w/other who traveled: No Recent Hopitalizations: No Recent Infectious Disease Expo: No Immunizations Up To Date Date of Pneumonia Vaccine: Feb 09, 2016 Date of Influenza Vaccine: Feb 09, 2016 Seasonal Allergies Seasonal Allergies: No Surgeries HX Surgeries: Yes (kidney bx X3, lumbar puncture X3, WART REMOVAL, EGG RETRIEVAL, PORT RIGHT CHEST) Respiratory Hx Respiratory Disorders: Yes (CPAP) Cardiovascular Hx Cardiovascular Disorders: Yes Cardiac Disorders: Hypertension Neurological Hx Neurological Disorders: Yes (ELEVATED INTRACRANIAL PRESSURE--OFF MEDICATION APPROXIMATELY 6 MONTHS, OF 07/15/16) Neurological Disorders: Headaches /Migraines Reproductive System : No Hx Reproductive Disorders: No Sexually Transmitted Disease: No HIV/AIDS: No Female Reproductive Disorders: Denies Genitourinary Hx Genitourinary Disorders: Yes (stage 4 kidney disease) Genitourinary Disorders: Renal Failure, UTI-Chronic Gastrointestinal Hx Gastrointestinal Disorders: Yes Gastrointestinal Disorders: Gastroesophageal Reflux Musculoskeletal Hx Musculoskeletal Disorders: Yes (LUPUS) Musculoskeletal Disorders: Arthritis Endocrine Hx Endocrine Disorders: Yes (LUPUS NEPHRITIS) Endocrine Disorders: Lupus HEENT HX ENT Disorders: Yes (GLASSES) Loss of Vision: Denies Hearing Impairment: Denies Cancer Hx Cancer: No Psychosocial Hx Psychiatric Problems: Yes Behavioral Health Disorders: Depression Integumentary HX Skin/Integumentary Disorder: No Blood Transfusions Hx Blood Disorders: Yes (ANEMIA) Adverse Reaction to a Blood Tr: No Family Medical History Significant Family History: Heart Disease, Diabetes, Hypertension Family Hx: Asthma G8 BROTHER G8 BROTHER Diabetes mellitus 19 MOTHER Hypercholesterolemia 19 MOTHER Hypertension 19 MOTHER Constitutional: No chills, No fever, No malaise EENTM: blurred vision other (HEADACHE) Respiratory: No cough, No dyspnea on exertion, No short of breath Cardiovascular: no symptoms reportedNo chest pain, No palpitations Gastrointestinal: No abdominal pain, nausea vomiting Genitourinary: no symptoms reported Musculoskeletal: joint pain muscle pain muscle weakness Skin: no symptoms reported Psychiatric/Neurological: Anxiety Depressed Headache All Other Systems Reviewed Negative Unless Noted: Yes Physical Exam Vital Signs Capillary Refill : Less Than 3 Seconds General Appearance: WD/WN Mild Distress Eyes: Bilateral Eye EOMI, Bilateral Eye Normal Inspection, Bilateral Eye PERRL HEENT: PERRL/EOMI Pharynx Normal Neck: Full Range of Motion Supple Respiratory: Chest Non Tender Lungs Clear Normal Breath Sounds No Accessory Muscle Use No Respiratory Distress Cardiovascular: Regular Rate, Rhythm Gastrointestinal: Normal Bowel Sounds No Organomegaly No Pulsatile Mass Non Tender Soft Rectal: Deferred Neurologic/Psychiatric: Alert Oriented x3 No Motor/Sensory Deficits Normal Mood/Affect rn case mgr II-XII Norm as Tested Skin: Normal Color Warm/Dry Lymphatic: No Adenopathy Assessment/Plan Assessment and Plan MIGRAINE HEADACHE MEDICATION REACTION LUPUS NAUSEA CHRONIC IMMUNOSUPPRESSION HYPERTENSION MIGRAINE HEADACHE, WITH A MEDICATION REACTION FROM THE TACROLIMUS - PT TO STOP THIS MEDICATION AT THIS TIME, I HAVE A PHONE CALL OUT TO THE SPECIALIST AT [facility] FOR A REPLACEMENT MEDICATION IF THEY SO CHOOSE...I HAVE DISCUSSED WITH PATIENT'S MOM AND WE HAVE DECIDED DUE TO HUDSON'S SEVERE REACTION SHE SHOULD NOT BE ON THIS MEDICATION ANY LONGER. LUPUS - CONTINUE WITH CURRENT TREATMENT. PT HAS LUPUS NEPHRITIS - SUPPORTIVE CARE, RENALLY DOSE MEDICATIONS. NAUSEA - RESOLVED HYPERTENSION - RESTART HOME MEDS. Admission Diagnosis MIGRAINE HEADACHE MEDICATION REACTION LUPUS NAUSEA CHRONIC IMMUNOSUPPRESSION HYPERTENSION Clinical Quality Measures DVT/VTE Risk/Contraindication: Risk Factor Score Per Nursin RFS Level Per Nursing on Admit: 2=Moderate KATE JARVIS MD Jul 16, 2016 09:03
[2016-07-16] MEDS ORDERED: TACR0.5C6 PO (09:04)
[2016-07-16] MEDS ORDERED: PREG75CA PO (09:04)
[2016-07-16] MEDS ORDERED: FLUT16SP22 NS (09:15)
[2016-07-16] MEDS ORDERED: AMOX500C2 PO (09:15)
[2016-07-16] MEDS ORDERED: HYDR200T46 PO (09:15)
[2016-07-16] MEDS ORDERED: CARV12.53 PO (09:15)
--- NOTE | 2016-07-16 11:41 | Anesthesia-General Post-Op ---
General Patient Condition Mental Status/LOC: Same as Preop Cardiovascular: Satisfactory Nausea/Vomiting: Absent Respiratory: Satisfactory Pain: Controlled Complications: Absent Post Op Complications Complications None Follow Up Care/Instructions Patient Instructions None needed. Anesthesia/Patient Condition Patient Condition Patient is doing well, no complaints, stable vital signs, no apparent adverse anesthesia problems. No complications reported per nursing. DIANA BLAKE CRNA Jul 16, 2016 11:41
[2016-07-16 12:00] VITALS: BP 138/82
[2016-07-16] MEDS: PANTOPRAZOLE 40 MG (PROTONIX) TAB PO SCH ×2 (14:30→21:09)
[2016-07-16] MEDS: SUCRALFATE 1 GM (CARAFATE) TAB PO SCH ×2 (15:10→21:00)
[2016-07-16 16:00] VITALS: BP 139/83
[2016-07-16 20:00] VITALS: BP 134/82
[2016-07-17 00:20] VITALS: BP 142/84
[2016-07-17] MEDS: CEFEPIME INJECTION 2,000 MG in NS (IVPB) 50 ML IV SCH (01:57)
[2016-07-17] MEDS: fentaNYL INJECTION 100 MCG/2 ML AMP IV PRN (01:57)
[2016-07-17] MEDS: LEVOFLOXACIN 750 MG/D5W 150 ML PRE-MIX IV SCH (03:05)
[2016-07-17 04:10] VITALS: BP 140/86
[2016-07-17] MEDS: CATHETER FLUSH 10 ML SYR IV SCH (05:32)
[2016-07-17] MEDS: 1/2 NS W/KCL 20 MEQ/L 1,000 ML IV SCH (05:44)
[2016-07-17] MEDS: SUCRALFATE 1 GM (CARAFATE) TAB PO SCH (05:44)
[2016-07-17 06:10] LABS: BASOPHILS % (AUTO) 0 % (0-10); EOSINOPHILS % (AUTO) 0 % (0-10); LYMPHOCYTES # (AUTO) 1.2 X 10^3 (1.0-4.0); LYMPHOCYTES % (AUTO) 11 % (12-44); MEAN CORPUSCULAR HEMOGLOBIN 26 PG (25-34); MEAN CORPUSCULAR HGB CONC 34 G/DL (32-36); MEAN CORPUSCULAR VOLUME 78 FL (80-99); MEAN PLATELET VOLUME 10.6 FL (7.4-10.4); MONOCYTES # (AUTO) 0.7 X 10^3 (0.0-1.0); MONOCYTES % (AUTO) 6 % (0-12); NEUTROPHILS # (AUTO) 8.9 X 10^3 (1.8-7.8); NEUTROPHILS % (AUTO) 83 % (42-75); PLATELET COUNT 252 10^3/uL (130-400); RED BLOOD COUNT 3.66 10^6/uL (4.35-5.85); RED CELL DISTRIBUTION WIDTH 14.1 % (10.0-14.5); WHITE BLOOD COUNT 10.8 10^3/uL (4.3-11.0)
[2016-07-17 06:56] LABS: ALANINE AMINOTRANSFERASE 11 U/L (0-55); ALBUMIN 2.5 G/DL (3.2-4.5); ANION GAP 9 MMOL/L (5-14); ASPARTATE AMINO TRANSFERASE 11 U/L (5-34); BILIRUBIN,TOTAL 0.2 MG/DL (0.1-1.0); BLOOD UREA NITROGEN 15 MG/DL (7-18); BUN/CREATININE RATIO 15; CALCIUM 8.2 MG/DL (8.5-10.1); CARBON DIOXIDE 20 MMOL/L (21-32); CHLORIDE 111 MMOL/L (98-107); CREATININE SERUM 0.98 MG/DL (0.60-1.30); GFR ESTIMATED > 60; GLUCOSE 147 MG/DL (70-105); POTASSIUM 3.7 MMOL/L (3.6-5.0); SODIUM 140 MMOL/L (135-145)
[2016-07-17] MEDS ORDERED: TROUGH ORDER-PHARMACY XX NR (08:00)
[2016-07-17 08:13] VITALS: BP 146/81
[2016-07-17] MEDS: PANTOPRAZOLE 40 MG (PROTONIX) TAB PO SCH (08:27)
[2016-07-17] MEDS: CALCIUM CARBONATE 500 MG (TUMS) TAB.CHEW PO SCH (08:29)
--- NOTE | 2016-07-17 09:13 | Discharge Inst-Complex ---
PDI Med Rec & Follow Up Appt. Continued Medications: Acetaminophen (Tylenol Arthritis) 650 Mg Tablet.er 1300 MG PO BID TAKES 2 (650MG) TABLETS PRN PAIN TAB Albuterol Sulfate (Proventil Hfa) 6.7 Gm Hfa.aer.ad 2 PUFF INH Q6H PRN SHORTNESS OF BREATH INHALER Amlodipine Besylate (Amlodipine Besylate) 10 Mg Tablet 10 MG PO DAILY TAB Amoxicillin (Amoxicillin) 500 Mg Capsule 500 MG PO TID 10 DAY SUPPLY FILLED 3-6-17 CAP Aspirin (Aspir 81) 81 Mg Tablet.dr 81 MG PO DAILY TAB Carboxymethylcellulose Sodium (Lubricant Eye Drops) 15 Ml Drops 1-2 DROPS OU QID PRN DRY EYES DROPS Carvedilol (Carvedilol) 12.5 Mg Tablet 12.5 MG PO BID TAB Ergocalciferol (Ergocalciferol) 50,000 Unit Capsule 31762 UNIT PO Th CAP Esomeprazole Magnesium (Nexium 24Hr) 22.3 Mg Capsule.dr 22.3 MG PO BID CAP Fluoxetine HCl (Fluoxetine HCl) 10 Mg Capsule 10 MG PO DAILY CAP Fluticasone Propionate (Fluticasone Propionate) 16 Gm [place].susp 1 SPRAY NS BID PRN CONGESTION EA Furosemide (Furosemide) 40 Mg Tablet 20 MG PO DAILY TAB Hydralazine HCl (Hydralazine HCl) 25 Mg Tablet 25 MG PO TID take if systolic BP >170 PRN BLOOD PRESSURE TAB Hydroxychloroquine Sulfate (Hydroxychloroquine Sulfate) 200 Mg Tablet 200 MG PO BID TAB Isomethept/Dichlphn/Acetaminop (Qktrefiejr-Mseccodrxc-Ugukvhvy) 1 Each Capsule 1 CAP PO BID TAKE 1 CAPSULE AT ONSET OF GARCIA AND MAY REPEAT IF NEEDED, NOT TO EXCEED MORE THAN 2 CAPSULES IN ONE DAY PRN MIGRAINE CAP Lisinopril (Lisinopril) 5 Mg Tablet 30 MG PO DAILY TAKES 6 (5MG) TABLETS TAB Ondansetron (Zofran Odt) 4 Mg/Udtablet Tab.rapdis 4 MG PO Q6H PRN NAUSEA TAB Potassium Chloride (Potassium Chloride) 20 Meq Tab.er.prt 20 MEQ PO DAILY TAB Prednisone (Prednisone) 10 Mg Tab 20 MG PO DAILY TAB Pregabalin (Lyrica) 75 Mg Capsule 75 MG PO HS CAP Sulfamethoxazole/Trimethoprim (Bactrim Ds Tablet) 1 Each Tablet 0.5 TAB PO MoWeFr TAB Trazodone HCl (Trazodone HCl) 50 Mg Tablet 50-100 MG PO HS TAKES 1 TO 2 (50MG) TABLETS TAB Discontinued Medications: Tacrolimus (Tacrolimus) 0.5 Mg Capsule 0.5 MG PO BID CAP Activity, Diet and PDI Resume Normal Activity: Yes Discharge Diet: Regular Diet Drink 6-8 Glasses of Fluid/Day: Yes Driving Instructions: No Driving for 24 Hours Symptoms to Reoprt to : Appetite Changes, Eyesight Changes, Pain Increased, Fever Over 101 Degrees F, Pain/Pressure in Chest, Diarrhea(Persistant), Dizziness/Fainting, Nausea/Vomiting, Shortness of Breath For Problems or Questions: Contact Your Physician, Go to Emergency Room Infection Signs and Symptoms: Temperature Above 101 F KATE OLIVERA MD Jul 17, 2016 09:13
--- NOTE | 2016-07-17 09:14 | Discharge Summary ---
Diagnosis/Chief Complaint Date of Admission Jul 16, 2016 at 00:47 Date of Discharge Discharge Date: Jul 17, 2016 Discharge Time: 914 Admission Diagnosis Admission Diagnosis MIGRAINE HEADACHE MEDICATION REACTION LUPUS NAUSEA CHRONIC IMMUNOSUPPRESSION HYPERTENSION Discharge Diagnosis MIGRAINE HEADACHE MEDICATION REACTION LUPUS NAUSEA CHRONIC IMMUNOSUPPRESSION HYPERTENSION Reason Hospital Visit MIGRAINE RESTARTED AFTER PT WAS PLACED BACK ON TACROLIMUS BY SPECIALIST AT Discharge Summary Discharge Physical Examination Allergies: Coded Allergies: No Known Drug Allergies (Unverified , 07/15/16) Vitals & I&Os General Appearance: Alert, Oriented X3, Cooperative HEENT: Atraumatic, PERRLA Respiratory: Clear to Auscultation, Normal Air Movement Cardiovascular: Regular Rate Abdominal: Normal Bowel Sounds, Soft, No Tenderness Extremities: No Clubbing Skin: No Rashes Neuro: Normal Gait, Cranial Nerves 3-12 NL Psych/Mental Status: Mental Status NL, Mood NL Hospital Course MIGRAINE HEADACHE MEDICATION REACTION LUPUS NAUSEA CHRONIC IMMUNOSUPPRESSION HYPERTENSION MIGRAINE HEADACHE, WITH A MEDICATION REACTION FROM THE [facility] - PT TO STOP THIS MEDICATION AT THIS TIME, I HAVE A PHONE CALL OUT TO THE SPECIALIST AT [facility] FOR A REPLACEMENT MEDICATION IF THEY SO CHOOSE...I HAVE DISCUSSED WITH PATIENT'S MOM AND WE HAVE DECIDED DUE TO HUDSON'S SEVERE REACTION SHE SHOULD NOT BE ON THIS MEDICATION ANY LONGER. LUPUS - CONTINUE WITH CURRENT TREATMENT. PT HAS LUPUS NEPHRITIS - SUPPORTIVE CARE, RENALLY DOSE MEDICATIONS. NAUSEA - RESOLVED HYPERTENSION - RESTART HOME MEDS. DISCUSSED WITH MED - THEY DO NOT WANT TO RESTART ANY MEDICATION THIS TIME - WILL MONITOR HER SYMPTOMS OFF OF THE MEDICATION, IF ANY RECURRENT SEVERE MIGRAINES OCCUR - PT OR HER MOM TO CALL THE OFFICE [facility]ending [facility] Discharge Condition at discharge IMPROVED Instructions to patient/family Please see electonic discharge instructions given to patient. Discharge Medications Reviewed and agree with Discharge Medication list on patient's Discharge Instruction sheet Clinical Quality Measures DVT/VTE Risk/Contraindication: Risk Factor Score Per Nursin RFS Level Per Nursing on Admit: 2=Moderate KATE OLIVERA MD Jul 17, 2016 09:14
== END 2016-07-17 10:30 | disposition home or self-care (01) | DRG 545 ==
LOC: EDUNIT# 22:12 → ER 22:14 → 4TH 07-16 00:47
PROVIDERS: ADMIT Family Medicine; ATTEND Family Medicine
DX: M32.14 Glomerular disease in systemic lupus erythematosus (principal); J32.9 Chronic sinusitis, unspecified; J18.9 Pneumonia, unspecified organism; E87.6 Hypokalemia; E83.51 Hypocalcemia; D64.9 Anemia, unspecified; I10 Essential (primary) hypertension; J02.9 Acute pharyngitis, unspecified; G43.909 Migraine, unspecified, not intractable, without status migrainosus; K21.9 Gastro-esophageal reflux disease without esophagitis; M19.90 Unspecified osteoarthritis, unspecified site; F32.9 Major depressive disorder, single episode, unspecified
CPT/HCPCS: 36415; 70450; 70486; 71020; 72125; 80053; 81000; 83605; 83735; 85025; 85610; 85730; 86308; 87040; 87430; 87804; 96365; 96375

== ENCOUNTER → 2016-07-15 | Outpatient (CLI) | payer OTHER ==
--- OUTSIDE RECORDS SUMMARY | 2016-07-15 13:40 | XMS REPORT | Continuity of Care Document ---
Author Author [facility] Organization [facility] Address Unknown Phone Unavailable Care Team Providers Care Nautical Instrument Mechanic Name Role Phone Juan Jarvis PCP [phone] Source Comments Some departments are not documenting in the electronic medical record. If you do not see the information that you expected, contact Release of Information in the Health Information Management department at [phone] for further assistance in locating additional records.[facility] Active Allergies and Adverse Reactions No Known [...] (BACTRIM DS) 800-160 times weekly. mg tablet isometh/dichloral/acetam( Take one at the start of 18 Cap 1 07/05/19 Active +) (MIDRIN) 325/65/100 mg a headache, if symptoms 17 capsule not resolved may take another. No more than twice in one day. Indications: MIGRAINE tacrolimus (PROGRAF) 0.5 Take 1 Cap by mouth twice 180 Cap 3 07/09/19 Active mg capsule daily. 17 pregabalin (LYRICA) 75 mg Take 1 Cap by mouth twice 180 Cap 1 Active capsule daily. 17 isometh/dichloral/acetam( Take one at the start of 18 Cap 0 10/11/19 07/05/19 Discontin +) (MIDRIN) 325/65/100 mg a headache, if symptoms 16 17 ued capsule not resolved may take another. No more than twice in one day. Indications: MIGRAINE nortriptyline (PAMELOR) Take 50 mg by mouth at 07/05/19 Discontin 50 mg capsule bedtime daily. 17 ued pregabalin (LYRICA) 75 mg Take 1 Cap by mouth at 90 Cap 1 06/11/19 07/09/19 Discontin capsule bedtime daily. 17 17 ued tacrolimus (PROGRAF) 1 mg Take 1 Cap by mouth twice 60 Cap 3 06/25/19 07/05/19 Discontin capsule daily. 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[facility]) ([facility]) 02/10/2015 Sepsis ([facility]) 12/23/2014 Nephrotic range proteinuria 12/10/2014 Pyuria, sterile 12/10/2014 Hematuria 12/10/2014 HTN (hypertension) 12/10/2014 Lupus (systemic lupus erythematosus) ([facility]) 09/14/2014 Last Assessment & Plan: Patient [...] anti-cardiolipin antibiody - F/U in November in [place] Most Recent Encounters Date Type Specialty Providers Description 07/11/2016 Telephone Allergy,Immunology and Paradise Bradley MD Medication Refill - Rheumatology Lyrica 07/09/2016 [facility] Savannah Mcnair MD Chronic kidney disease, Encounter stage 2 (mild) 07/09/2016 Office Visit Allergy,Immunology and Paradise Bradley MD Lupus nephritis ([facility]) Rheumatology (Primary Dx); Chronic pain of both knees 07/09/2016 [facility] Savannah Mcnair MD Chronic kidney disease, Encounter stage 2 (mild) 07/09/2016 Office Visit Nephrology Savannah Mcnair MD CKD (chronic kidney disease), stage 2 (mild) (Primary Dx) 07/05/2016 Office Visit Neurology Leandro Dejesus MD Migraine without aura and without status migrainosus, not intractable (Primary Dx) 07/05/2016 Orders Only Nephrology Savannah Mcnair MD Lupus nephritis ([facility]) 07/02/2016 Telephone Nephrology Savannah Mcnair MD Medication Question; Headache; Nausea 06/25/2016 Telephone Nephrology Savannah Mcnair MD Follow-up Phone Call - Medication adjustment 06/24/2016 Orders Only Nephrology Savannah Mcnair MD Lupus nephritis ([facility]) 06/17/2016 Telephone Nephrology Savannah Mcnair MD Results 06/11/2016 [facility] Savannah Mcnair MD Glomerular disease in Encounter systemic lupus erythematosus ([facility]) 06/11/2016 Hospital Radiology Paradise Bradley MD Encounter 06/11/2016 Office Visit Allergy,Immunology and Paradise Bradley MD Lupus nephritis ([facility]) Rheumatology (Primary Dx); Chronic pain of both knees; Systemic lupus erythematosus with glomerular disease, unspecified SLE type 06/11/2016 [facility] Savannah Mcnair MD Glomerular disease in Encounter systemic lupus erythematosus ([facility]) 06/11/2016 Office Visit Nephrology Savannah Mcnair MD Other systemic lupus erythematosus with glomerular disease ([facility]) (Primary Dx); CKD (chronic kidney disease), unspecified stage 06/11/2016 Telephone Allergy,Immunology and Paradise Bradley MD Other Rheumatology 06/11/2016 Orders Only Nephrology Savannah Mcnair MD Lupus nephritis ([facility]) 05/10/2016 Telephone Nephrology Savannah Mcnair MD [...] Taken Blood Pressure 138/97 07/09/2016 12:45 PM PERFECT BINDER OPERATOR Pulse 83 07/09/2016 12:45 PM PERFECT BINDER OPERATOR Temperature 36.7 C (98.1 F) 07/09/2016 12:45 PM PERFECT BINDER OPERATOR Respiratory Rate 16 07/09/2016 12:45 PM PERFECT BINDER OPERATOR Height 1.727 m (5' 7.99") 07/09/2016 12:45 PM PERFECT BINDER OPERATOR Weight 116.756 kg (257 lb 6.4 07/09/2016 12:45 PM PERFECT BINDER OPERATOR oz) Body Mass Index 39.15 07/09/2016 12:45 PM PERFECT BINDER OPERATOR Oxygen Saturation 100% 03/28/2016 3:40 PM PERFECT BINDER OPERATOR Plan of Care Date Type Specialty Providers Description 08/27/2016 Appointment Nephrology Savannah Mcnair MD [address] [facility] [address] [place] [address] [phone] (Fax) 08/27/2016 Appointment Allergy,Immunology and Paradise Bradley MD Rheumatology [address] [facility] [address] [place] [address] [phone] (Fax) 01/03/2017 Appointment Neurology Germain Nunez DO [address] [place] [address] [phone] (Fax) Health Maintenance Due Date Last Done [...] neg Urine Ketone POC neg Urine Specific [place] 1.015 POC Urine Blood POC 50 Urine PH POC 6 Urine Protein POC 500 Urine Urobilinogen POC norm Urine Nitrite POC neg Urine Leukocytes POC neg Specimen Urine URINALYSIS DIPSTICK (07/02/2016)Only the most recent of 3 results within the time period is included. Specimen Urine ANTI-TE-[place] DNA,TITER (06/11/2016 1:36 PM) Component Value Range Anti-DNA Titer > RJ=4874 <10 TITER ANTI-NUCLEAR AB(URSULA)-QUANT (06/11/2016 1:36 PM) Component Value Range URSULA Titer/Pattern > GN=[id number]: HOMOGENEOUS <80 ANTI-DNA DOUBLE STRAND (06/11/2016 1:36 [...] - Tue Jun 11, 2016 1:48 PM PERFECT BINDER OPERATOR Left knee 3 views, right knee 3 [...]
[2016-07-15 14:30] LABS: MEAN PLATELET VOLUME 10.3 FL (7.4-10.4); RED BLOOD COUNT 3.66 10^6/uL (4.35-5.85); RED CELL DISTRIBUTION WIDTH 14.2 % (10.0-14.5)
[2016-07-15 14:50] LABS: ALANINE AMINOTRANSFERASE 15 U/L (0-55); ALBUMIN 2.7 G/DL (3.2-4.5); ANION GAP 9 MMOL/L (5-14); ASPARTATE AMINO TRANSFERASE 14 U/L (5-34); BILIRUBIN,TOTAL 0.3 MG/DL (0.1-1.0); BLOOD UREA NITROGEN 11 MG/DL (7-18); BUN/CREATININE RATIO 11; CALCIUM 8.4 MG/DL (8.5-10.1); CARBON DIOXIDE 24 MMOL/L (21-32); CHLORIDE 108 MMOL/L (98-107); CREATININE SERUM 1.03 MG/DL (0.60-1.30); GFR ESTIMATED > 60; GLUCOSE 87 MG/DL (70-105); POTASSIUM 2.9 MMOL/L (3.6-5.0); SODIUM 141 MMOL/L (135-145); TOTAL PROTEIN 5.2 G/DL (6.4-8.2)
== END ==
LOC: SDC 13:36
PROVIDERS: ATTEND Nurse Practitioner Family
DX: J06.9 Acute upper respiratory infection, unspecified (principal)
CPT/HCPCS: 36415; 80053; 85027

== ENCOUNTER 2016-08-15 10:05 | Outpatient (RCR) | payer OTHER ==
[~2016-08-15] VITALS: Ht 172.7 cm; Wt 118.9 kg
[~2016-08-15 10:05] MED LIST changes: +AMOX500C2 PO; +CARV12.53 PO; +FLUT16SP22 NS; +PREG75CA PO; +TACR0.5C6 PO
[2016-08-15 11:00] VITALS: BP 146/91
[2016-08-15 11:05] LABS: BILIRUBIN,URINE NEGATIVE (NEGATIVE); KETONES,URINE NEGATIVE (NEGATIVE); LEUKOCYTE ESTERASE ,URINE NEGATIVE (NEGATIVE); NITRITE,URINE NEGATIVE (NEGATIVE); PH,URINE 6.5 (5-9); PROTEIN,URINE 4+ (NEGATIVE); UROBILINOGEN,URINE NORMAL (NORMAL)
[2016-08-15 11:20] LABS: ALBUMIN 2.9 G/DL (3.2-4.5); ANION GAP 9 MMOL/L (5-14); BLOOD UREA NITROGEN 11 MG/DL (7-18); BUN/CREATININE RATIO 10; CALCIUM 8.2 MG/DL (8.5-10.1); CARBON DIOXIDE 21 MMOL/L (21-32); CHLORIDE 110 MMOL/L (98-107); CREATININE SERUM 1.05 MG/DL (0.60-1.30); GFR ESTIMATED > 60; GLUCOSE 101 MG/DL (70-105); POTASSIUM 3.3 MMOL/L (3.6-5.0); SODIUM 140 MMOL/L (135-145)
== END 2016-11-13 | disposition home or self-care (01) ==
LOC: SDC 10:05
PROVIDERS: ATTEND Internal Medicine Nephrology
DX: M32.14 Glomerular disease in systemic lupus erythematosus (principal)
CPT/HCPCS: 36415; 36591; 80048; 81000; 82040

== ENCOUNTER 2016-08-15 11:36 | Outpatient (RCR) | payer OTHER | END 2016-11-13 | disposition home or self-care (01) | LOC: SDC 11:36 | PROVIDERS: ATTEND Nurse Practitioner Family | DX: M32.10 Systemic lupus erythematosus, organ or system involvement unspecified (principal) ==

== ENCOUNTER 2016-10-14 09:10 | Emergency (ER) | payer OTHER ==
[~2016-10-14] VITALS: Ht 172.7 cm; Wt 122.5 kg
[2016-10-14] MEDS ORDERED: LIDOCAINE 2% VISCOUS 15 ML UDC PO ONE (09:45)
[2016-10-14] MEDS ORDERED: ANTACID SUSP 30 ML UDC (MYLANTA) PO ONE (09:45)
--- NOTE | 2016-10-14 09:45 | Diagnostic Imaging Report ---
Indication: Chest pain Portable chest 9:35 AM Right IJ Port-A-Cath tip projects over the SVC. Heart size and pulmonary vascular normal. Lungs are clear. There are no effusions or pneumothoraces. Impression: Negative chest Dictated by: Dictated on workstation # [id number]
[2016-10-14 10:15] LABS: BASOPHILS % (AUTO) 0 % (0-10); EOSINOPHILS # (AUTO) 0.1 10^3/uL (0.0-0.3); EOSINOPHILS % (AUTO) 1 % (0-10); LYMPHOCYTES # (AUTO) 2.1 X 10^3 (1.0-4.0); LYMPHOCYTES % (AUTO) 28 % (12-44); MEAN CORPUSCULAR HEMOGLOBIN 25 PG (25-34); MEAN CORPUSCULAR HGB CONC 32 G/DL (32-36); MEAN CORPUSCULAR VOLUME 78 FL (80-99); MEAN PLATELET VOLUME 10.5 FL (7.4-10.4); MONOCYTES # (AUTO) 0.9 X 10^3 (0.0-1.0); MONOCYTES % (AUTO) 12 % (0-12); NEUTROPHILS # (AUTO) 4.5 X 10^3 (1.8-7.8); NEUTROPHILS % (AUTO) 60 % (42-75); PLATELET COUNT 246 10^3/uL (130-400); RED BLOOD COUNT 3.98 10^6/uL (4.35-5.85); RED CELL DISTRIBUTION WIDTH 15.6 % (10.0-14.5); WHITE BLOOD COUNT 7.5 10^3/uL (4.3-11.0)
[2016-10-14 10:34] LABS: ERYTHROCYTE SEDIMENTATION RATE 45 MM/HR (0-20)
--- NOTE | 2016-10-14 11:20 | ED General ---
General Chief Complaint: Chest Pain Stated Complaint: CHEST PAIN Nursing Triage Note: STATES TWO DAYS SHE HAD CHEST PAIN ET TOOK HER HEART BURN MED AND IT HELPED. IT HAS CAME BACK SINCE AND THOUGHT SHE SHOULD BE SEEN. Nursing Sepsis Screen: No Definite Risk Source of Information: Patient Exam Limitations: No Limitations History of Present Illness Time Seen by Provider: 11:13 Initial Comments The patient is a 20-year-old white female who has had lupus for the last 10 years. She has had an increase in problems since about mid August. At that time she had been taking tacrolimus and has been switched to CellCept plus Rituxan. She is to have a follow-up appointment with her leather stamper and her spectroscopist tomorrow to assess the process. She has had the chest pain for several days. Initially she took some medicine for heartburn and got some relief. She has not repeated this. She does not know whether she has ever been said to have pleuritis or pericarditis secondary to the lupus. Her medications are limited because of her renal disease and she is unable to take NSAIDs. Timing/Duration: 2-3 Days Allergies and Home Medications Allergies Coded Allergies: No Known Drug Allergies (Unverified , 07/15/16) Home Medications Acetaminophen 650 Mg Tablet.er, 1,300 MG PO BID PRN for PAIN, (Reported) TAKES 2 (650MG) TABLETS Albuterol Sulfate 6.7 Gm Hfa.aer.ad, 2 PUFF INH Q6H PRN for SHORTNESS OF BREATH, (Reported) Amlodipine Besylate 10 Mg Tablet, 10 MG PO DAILY, (Reported) Amoxicillin 500 Mg Capsule, 500 MG PO TID, (Reported) 10 DAY SUPPLY FILLED 07-15-16 Aspirin 81 Mg Tablet.dr, 81 MG PO DAILY, (Reported) Carboxymethylcellulose Sodium 15 Ml Drops, 1-2 DROPS OU QID PRN for DRY EYES, ( Reported) Carvedilol 12.5 Mg Tablet, 12.5 MG PO BID, (Reported) Ergocalciferol 50,000 Unit Capsule, 50,000 UNIT PO Th, (Reported) Esomeprazole Magnesium 22.3 Mg Capsule.dr, 22.3 MG PO BID, (Reported) Fluoxetine HCl 10 Mg Capsule, 10 MG PO DAILY, (Reported) Fluticasone Propionate 16 Gm [place].susp, 1 SPRAY NS BID PRN for CONGESTION, ( Reported) Furosemide 40 Mg Tablet, 20 MG PO DAILY, (Reported) Hydralazine HCl 25 Mg Tablet, 25 MG PO TID PRN for BLOOD PRESSURE, (Reported) take if systolic BP >170 Hydroxychloroquine Sulfate 200 Mg Tablet, 200 MG PO BID, (Reported) Isomethept/Dichlphn/Acetaminop 1 Each Capsule, 1 CAP PO BID PRN for MIGRAINE, ( Reported) TAKE 1 CAPSULE AT ONSET OF GARCIA AND MAY REPEAT IF NEEDED, NOT TO EXCEED MORE THAN 2 CAPSULES IN ONE DAY Lisinopril 5 Mg Tablet, 30 MG PO DAILY, (Reported) TAKES 6 (5MG) TABLETS Ondansetron 4 Mg/Udtablet Tab.rapdis, 4 MG PO Q6H PRN for NAUSEA, (Reported) Potassium Chloride 20 Meq Tab.er.prt, 20 MEQ PO DAILY, (Reported) Prednisone 10 Mg Tab, 20 MG PO DAILY, (Reported) Pregabalin 75 Mg Capsule, 75 MG PO HS, (Reported) Sulfamethoxazole/Trimethoprim 1 Each Tablet, 0.5 TAB PO MoWeFr, (Reported) Trazodone HCl 50 Mg Tablet, 50-100 MG PO HS, (Reported) TAKES 1 TO 2 (50MG) TABLETS Constitutional: see HPI EENTM: no symptoms reported Respiratory: no symptoms reported Cardiovascular: chest pain Gastrointestinal: no symptoms reported Genitourinary: other (kidney involvement with lupus) Musculoskeletal: muscle pain Skin: no symptoms reported Psychiatric/Neurological: No Symptoms Reported Hematologic/Lymphatic: No Symptoms Reported Immunological/Allergic: no symptoms reported Past Dpbhdjc-Ayfthd-Jcmwse Hx Patient Social History Alcohol Use: Denies Use Recreational Drug Use: No Smoking Status: Never a Smoker 2nd Hand Smoke Exposure: No Recent Foreign Travel: No Contact w/Someone Who Travel: No Recent Infectious Disease Expo: No Recent Hopitalizations: No Immunizations Up To Date PED Vaccines UTD: Yes Date of Pneumonia Vaccine: Feb 09, 2016 Date of Influenza Vaccine: Feb 09, 2016 Seasonal Allergies Seasonal Allergies: No Surgeries HX Surgeries: Yes Respiratory Hx Respiratory Disorders: Yes (CPAP) Respiratory Disorders: Sleep Apnea Cardiovascular Hx Cardiac Disorders: Yes Cardiac Disorders: Hypertension Neurological Hx Neurological Disorders: Yes Neurological Disorders: Headaches /Migraines Reproductive System Hx Reproductive Disorders: No Sexually Transmitted Disease: No HIV/AIDS: No Female Reproductive Disorders: Denies Genitourinary Hx Genitourinary Disorders: Yes (stage 4 kidney disease) Genitourinary Disorders: Renal Failure, UTI-Chronic Gastrointestinal Hx Gastrointestinal Disorders: Yes Gastrointestinal Disorders: Gastroesophageal Reflux Musculoskeletal Hx Musculoskeletal Disorders: Yes (LUPUS) Musculoskeletal Disorders: Arthritis Endocrine Hx Endocrine Disorders: Yes (LUPUS NEPHRITIS) Endocrine Disorders: Lupus HEENT HX ENT Disorders: Yes (GLASSES) Loss of Vision: Denies Hearing Impairment: Denies Cancer Hx Cancer: No Psychosocial Hx Psychiatric Problems: Yes Behavioral Health Disorders: Depression Integumentary HX Skin/Integumentary Disorder: No Blood Transfusions Hx Blood Disorders: Yes (ANEMIA) Adverse Reaction to a Blood Tr: No Family Medical History Significant Family History: Heart Disease, Diabetes, Hypertension Family Medial History: Asthma G8 BROTHER G8 BROTHER Diabetes mellitus 19 MOTHER Hypercholesterolemia 19 MOTHER Hypertension 19 MOTHER Physical Exam Vital Signs Vital Sign - Last 12Hours 10/14/16 09:15 Temp 98.0 Pulse 78 Resp 16 B/P (MAP) 152/98 Pulse Ox 98 O2 Delivery Room Air Capillary Refill : Less Than 3 Seconds General Appearance: No Apparent Distress, WD/WN Eyes: Bilateral Eye Normal Inspection HEENT: Normal ENT Inspection Neck: Normal Inspection Respiratory: Chest Non Tender, Lungs Clear, Normal Breath Sounds, No Accessory Muscle Use, No Respiratory Distress Cardiovascular: Regular Rate, Rhythm, No Edema, No Gallop, No JVD, No Murmur, Normal Peripheral Pulses Gastrointestinal: Normal Bowel Sounds, No Organomegaly, No Pulsatile Mass, Non Tender, Soft Back: Normal Inspection, No CVA Tenderness, No Vertebral Tenderness Extremity: Normal Capillary Refill, Normal Inspection, Normal Range of Motion, Non Tender, No Calf Tenderness, No Pedal Edema Skin: Normal Color, Warm/Dry Lymphatic: No Adenopathy Progress/Results/Core Measures Results/Orders Lab Results Laboratory Tests Test 10/14/16 10:00 Range/Units White Blood Count 7.5 4.3-11.0 10^3/uL Red Blood Count 3.98 L 4.35-5.85 10^6/uL Hemoglobin 9.9 L 11.5-16.0 G/DL Hematocrit 31 L 35-52 % Mean Corpuscular Volume 78 L 80-99 FL Mean Corpuscular Hemoglobin 25 25-34 PG Mean Corpuscular Hemoglobin Concent 32 32-36 G/DL Red Cell Distribution Width 15.6 H 10.0-14.5 % Platelet Count 246 130-400 10^3/uL Mean Platelet Volume 10.5 H 7.4-10.4 FL Neutrophils (%) (Auto) 60 42-75 % Lymphocytes (%) (Auto) 28 12-44 % Monocytes (%) (Auto) 12 0-12 % Eosinophils (%) (Auto) 1 0-10 % Basophils (%) (Auto) 0 0-10 % Neutrophils # (Auto) 4.5 1.8-7.8 X 10^3 Lymphocytes # (Auto) 2.1 1.0-4.0 X 10^3 Monocytes # (Auto) 0.9 0.0-1.0 X 10^3 Eosinophils # (Auto) 0.1 0.0-0.3 10^3/uL Basophils # (Auto) 0.0 0.0-0.1 10^3/uL Erythrocyte Sedimentation Rate 45 H 0-20 MM/HR My Orders Orders - CHUCK OLIVER MD Ekg Tracing (10/14/16 09:27) Cbc With Automated Diff (10/14/16 09:27) Erythrocyte Sedimentation Rate (10/14/16 09:27) Chest 1 View, Ap/Pa Only (10/14/16 09:27) Antacid Suspension (Mylanta Suspension (10/14/16 09:45) Lidocaine 2% Viscous 15 Ml (Xylocaine Vi (10/14/16 09:45) Troponin I (10/14/16 10:58) Medications Given in ED Current Medications Medications Dose Ordered Sig/Sultana Route Start Time Stop Time Status Last Admin Dose Admin Al Hydrox/Mg Hydrox/Simethicone 30 ml ONCE ONCE PO 10/14/16 09:45 10/14/16 09:46 DC 10/14/16 09:53 30 ML Lidocaine HCl 15 ml ONCE ONCE PO 10/14/16 09:45 10/14/16 09:49 DC 10/14/16 09:53 15 ML Vital Signs/I&O Vital Sign - Last 12Hours 10/14/16 09:15 Temp 98.0 Pulse 78 Resp 16 B/P (MAP) 152/98 Pulse Ox 98 O2 Delivery Room Air Blood Pressure Mean: 116 Departure Impression Impression: Primary Impression: lupus, possible pleuritis/pericarditis Disposition: 01 HOME, SELF-CARE Condition: Stable/Unchanged Departure-Patient Inst. Decision time for Depature: 11:18 Referrals: JAROD,KATE A MD (PCP/Family) Primary Care Physician Patient Instructions: Chest Pain That Is Not Caused by the Heart (DC) Add. Discharge Instructions: All discharge instructions reviewed with patient and/or family. Voiced understanding. You may continue to use Mylanta or Tums or Rolaids for possible heartburn. Given your kidney function problems you are likely only safe to take Tylenol. Keep your appointment with your spectroscopist and leather stamper tomorrow CHUCK OLIVER MD Oct 14, 2016 11:20
[2016-10-14 11:45] LABS: ANION GAP 9 MMOL/L (5-14); BLOOD UREA NITROGEN 13 MG/DL (7-18); BUN/CREATININE RATIO 14; CALCIUM 8.2 MG/DL (8.5-10.1); CARBON DIOXIDE 21 MMOL/L (21-32); CHLORIDE 110 MMOL/L (98-107); CREATININE SERUM 0.94 MG/DL (0.60-1.30); GFR ESTIMATED > 60; GLUCOSE 76 MG/DL (70-105); POTASSIUM 3.9 MMOL/L (3.6-5.0); SODIUM 140 MMOL/L (135-145)
[2016-10-14 12:21] VITALS: BP 137/90
== END 2016-10-14 12:21 | disposition home or self-care (01) ==
LOC: EDUNIT# 09:10 → ER 09:12
DX: M32.9 Systemic lupus erythematosus, unspecified (principal); I10 Essential (primary) hypertension; G47.30 Sleep apnea, unspecified; E11.9 Type 2 diabetes mellitus without complications
CPT/HCPCS: 36415; 71010; 80048; 84484; 85025; 85652

== ENCOUNTER → 2016-12-09 | Outpatient (CLI) | payer OTHER ==
[~2016-12-09] VITALS: Ht 172.7 cm; Wt 122.5 kg
[2016-12-09 13:01] LABS: MEAN PLATELET VOLUME 10.7 FL (7.4-10.4); RED BLOOD COUNT 4.46 10^6/uL (4.35-5.85); RED CELL DISTRIBUTION WIDTH 16.5 % (10.0-14.5); WHITE BLOOD COUNT 5.3 10^3/uL (4.3-11.0)
[2016-12-09 13:17] LABS: ALBUMIN 2.9 GM/DL (3.2-4.5); ANION GAP 7 MMOL/L (5-14); BLOOD UREA NITROGEN 10 MG/DL (7-18); BUN/CREATININE RATIO 11; CALCIUM 8.3 MG/DL (8.5-10.1); CARBON DIOXIDE 21 MMOL/L (21-32); CHLORIDE 111 MMOL/L (98-107); CREATININE SERUM 0.91 MG/DL (0.60-1.30); GFR ESTIMATED > 60; GLUCOSE 103 MG/DL (70-105); POTASSIUM 3.3 MMOL/L (3.6-5.0); SODIUM 139 MMOL/L (135-145)
[2016-12-09 14:01] LABS: PROTEIN/CREATININE RATIO 7.57
[2016-12-09 14:39] VITALS: BP 0/0
== END ==
LOC: SDC 12:20
PROVIDERS: ATTEND Internal Medicine Nephrology
DX: D64.9 Anemia, unspecified (principal); N18.9 Chronic kidney disease, unspecified; R80.9 Proteinuria, unspecified
CPT/HCPCS: 36415; 36591; 80048; 82040; 82570; 84156; 85027

== ENCOUNTER → 2016-12-16 | Outpatient (CLI) | payer OTHER ==
[~2016-12-16] VITALS: Ht 172.7 cm; Wt 122.5 kg
[2016-12-16 14:35] VITALS: BP 0/0
[2016-12-16 14:43] LABS: MEAN PLATELET VOLUME 10.3 FL (7.4-10.4); RED BLOOD COUNT 4.56 10^6/uL (4.35-5.85); RED CELL DISTRIBUTION WIDTH 16.6 % (10.0-14.5); WHITE BLOOD COUNT 6.6 10^3/uL (4.3-11.0)
[2016-12-16 14:43] LABS: BILIRUBIN,URINE NEGATIVE (NEGATIVE); KETONES,URINE NEGATIVE (NEGATIVE); LEUKOCYTE ESTERASE ,URINE NEGATIVE (NEGATIVE); NITRITE,URINE NEGATIVE (NEGATIVE); PH,URINE 6 (5-9); PROTEIN,URINE 4+ (NEGATIVE); UROBILINOGEN,URINE NORMAL (NORMAL)
[2016-12-16 14:52] LABS: SQUAMOUS EPITHELIAL CELL,UR 0-2 /HPF; WBC,URINE 0-2 /HPF
[2016-12-16 15:06] LABS: ANION GAP 8 MMOL/L (5-14); BLOOD UREA NITROGEN 14 MG/DL (7-18); BUN/CREATININE RATIO 15; CALCIUM 8.4 MG/DL (8.5-10.1); CARBON DIOXIDE 22 MMOL/L (21-32); CHLORIDE 108 MMOL/L (98-107); CREATININE SERUM 0.94 MG/DL (0.60-1.30); GFR ESTIMATED > 60; GLUCOSE 96 MG/DL (70-105); POTASSIUM 3.7 MMOL/L (3.6-5.0); SODIUM 138 MMOL/L (135-145)
[2016-12-16 15:20] LABS: PROTEIN/CREATININE RATIO 6.24
== END ==
LOC: SDC 13:54
PROVIDERS: ATTEND Internal Medicine Nephrology
DX: M32.14 Glomerular disease in systemic lupus erythematosus (principal)
CPT/HCPCS: 36415; 36591; 80048; 81000; 82040; 82570; 84156; 85027

== ENCOUNTER → 2016-12-23 | Outpatient (CLI) | payer OTHER ==
[2016-12-23 13:51] LABS: BILIRUBIN,URINE NEGATIVE (NEGATIVE); KETONES,URINE NEGATIVE (NEGATIVE); LEUKOCYTE ESTERASE ,URINE NEGATIVE (NEGATIVE); NITRITE,URINE NEGATIVE (NEGATIVE); PH,URINE 6 (5-9); PROTEIN,URINE 4+ (NEGATIVE); UROBILINOGEN,URINE NORMAL (NORMAL)
[2016-12-23 14:06] LABS: SQUAMOUS EPITHELIAL CELL,UR RARE /HPF; WBC,URINE RARE /HPF
== END ==
LOC: LAB 13:22
PROVIDERS: ATTEND Nurse Practitioner Family
DX: R30.0 Dysuria (principal)
CPT/HCPCS: 81000; 87088

== ENCOUNTER 2017-02-25 16:05 | Outpatient (CLI) | payer OTHER ==
[~2017-02-25] VITALS: Ht 172.7 cm; Wt 122.5 kg
[2017-02-25 16:15] VITALS: BP 141/88
[2017-02-25] MEDS ORDERED: NS IV 1000 ML 1,000 ML ONE (16:17)
[2017-02-25] MEDS ORDERED: CATHETER FLUSH 10 ML SYR IV PRN (16:30)
[2017-02-25] MEDS ORDERED: NS IV 1000 ML 1,000 ML IV ONE (16:30)
[2017-02-25] MEDS ORDERED: LEVOFLOXACIN 250 MG/D5W 50 ML (PRE-MIX) IV ONE (16:30)
[2017-02-25] MEDS ORDERED: methylPREDNISolone 125 MG (Solu-MEDROL) VIAL IV ONE (16:30)
[2017-02-25 16:42] LABS: MEAN PLATELET VOLUME 10.4 FL (7.4-10.4); RED BLOOD COUNT 4.34 10^6/uL (4.35-5.85); RED CELL DISTRIBUTION WIDTH 17.2 % (10.0-14.5); WHITE BLOOD COUNT 8.5 10^3/uL (4.3-11.0)
[2017-02-25] MEDS ORDERED: LEVOFLOXACIN 500 MG/D5W 100 ML (PRE-MIX) IV ONE (16:45)
[2017-02-25 17:03] LABS: ALANINE AMINOTRANSFERASE 20 U/L (0-55); ALBUMIN 3.3 GM/DL (3.2-4.5); ANION GAP 9 MMOL/L (5-14); ASPARTATE AMINO TRANSFERASE 16 U/L (5-34); BILIRUBIN,TOTAL 0.2 MG/DL (0.1-1.0); BLOOD UREA NITROGEN 16 MG/DL (7-18); BUN/CREATININE RATIO 15; CALCIUM 9.1 MG/DL (8.5-10.1); CARBON DIOXIDE 23 MMOL/L (21-32); CHLORIDE 106 MMOL/L (98-107); CREATININE SERUM 1.09 MG/DL (0.60-1.30); GFR ESTIMATED > 60; GLUCOSE 84 MG/DL (70-105); POTASSIUM 3.6 MMOL/L (3.6-5.0); SODIUM 138 MMOL/L (135-145); TOTAL PROTEIN 6.2 GM/DL (6.4-8.2)
== END 2017-02-25 18:15 | disposition home or self-care (01) ==
LOC: SDC 16:05
PROVIDERS: ATTEND Family Medicine
DX: M32.9 Systemic lupus erythematosus, unspecified (principal); R50.9 Fever, unspecified
CPT/HCPCS: 36415; 36591; 80053; 85027; 96360; 96367; 96375

== ENCOUNTER → 2017-03-04 | Outpatient (CLI) | payer OTHER ==
[~2017-03-04] VITALS: Ht 172.7 cm; Wt 122.5 kg
[~2017-03-04] MED LIST changes: +NS IV 1000 ML 1,000 ML IV ONE; +NS IV 1000 ML 1,000 ML ONE; +methylPREDNISolone 125 MG (Solu-MEDROL) VIAL IV ONE; +methylPREDNISolone 125 MG (Solu-MEDROL) VIAL ONE
[2017-03-04 13:43] LABS: MEAN PLATELET VOLUME 10.2 FL (7.4-10.4); RED BLOOD COUNT 4.56 10^6/uL (4.35-5.85); WHITE BLOOD COUNT 7.9 10^3/uL (4.3-11.0)
[2017-03-04 14:00] VITALS: BP 150/100
[2017-03-04 14:03] LABS: ALANINE AMINOTRANSFERASE 19 U/L (0-55); ALBUMIN 3.2 GM/DL (3.2-4.5); ANION GAP 8 MMOL/L (5-14); ASPARTATE AMINO TRANSFERASE 13 U/L (5-34); BILIRUBIN,TOTAL 0.3 MG/DL (0.1-1.0); BLOOD UREA NITROGEN 17 MG/DL (7-18); BUN/CREATININE RATIO 18; CALCIUM 8.9 MG/DL (8.5-10.1); CARBON DIOXIDE 24 MMOL/L (21-32); CHLORIDE 104 MMOL/L (98-107); CREATININE SERUM 0.95 MG/DL (0.60-1.30); GFR ESTIMATED > 60; GLUCOSE 82 MG/DL (70-105); POTASSIUM 3.9 MMOL/L (3.6-5.0); SODIUM 136 MMOL/L (135-145)
[2017-03-04 14:06] LABS: BILIRUBIN,URINE NEGATIVE (NEGATIVE); KETONES,URINE NEGATIVE (NEGATIVE); LEUKOCYTE ESTERASE ,URINE NEGATIVE (NEGATIVE); NITRITE,URINE NEGATIVE (NEGATIVE); PH,URINE 6.5 (5-9); PROTEIN,URINE 4+ (NEGATIVE); UROBILINOGEN,URINE NORMAL (NORMAL)
[2017-03-04 14:14] LABS: SQUAMOUS EPITHELIAL CELL,UR 0-2 /HPF; WBC,URINE RARE /HPF
[2017-03-04 15:13] LABS: PROTEIN/CREATININE RATIO 4.65
== END ==
LOC: SDC 13:04
PROVIDERS: ATTEND Nurse Practitioner Family
DX: M32.9 Systemic lupus erythematosus, unspecified (principal)
CPT/HCPCS: 36415; 36591; 80053; 81000; 82570; 84156; 85027; 96360; 96375

== ENCOUNTER → 2017-11-27 | Outpatient (CLI) | payer OTHER ==
[~2017-11-27] MED LIST changes: -NS IV 1000 ML 1,000 ML IV ONE; -NS IV 1000 ML 1,000 ML ONE; +TRAZ-189 PO; -TRAZ-28 PO; -methylPREDNISolone 125 MG (Solu-MEDROL) VIAL IV ONE; -methylPREDNISolone 125 MG (Solu-MEDROL) VIAL ONE
--- NOTE | 2017-11-27 15:36 | Diagnostic Imaging Report ---
INDICATION: Left-sided chest pain and difficulty breathing. TIME OF EXAM: 03:01 p.m. Correlation is made with prior study from 10/14/2016. FINDINGS: Right chest wall port remains in place. The heart size is stable. The lungs are clear. The pulmonary vascularity is normal. No infiltrate, effusion, or pneumothorax is seen. IMPRESSION: No acute cardiopulmonary process is detected. Dictated by: Dictated on workstation # [id number]
== END ==
LOC: RAD 14:20
PROVIDERS: ATTEND Nurse Practitioner Family
DX: R06.00 Dyspnea, unspecified (principal); R05 Cough; R07.9 Chest pain, unspecified
CPT/HCPCS: 71046

== ENCOUNTER 2018-01-20 11:10 | Emergency (ER) | payer OTHER ==
[~2018-01-20] VITALS: Ht 172.7 cm; Wt 131.5 kg
[~2018-01-20 11:10] MED LIST changes: -AMLO10TA2 PO; +AMLO10TA6 PO
--- OUTSIDE RECORDS SUMMARY | 2018-01-20 11:16 | XMS REPORT | Encounter Summary ---
Author Author [facility] Organization [facility] Address Unknown Phone Unavailable Care Team Providers Care [employer] Teacher Name Role Phone Savannah Mcnair MD Unavailable Ninfa Durham RN Unavailable Sol Lilly RN Unavailable Unavailable Kristina Mathews DO [id number] Kim Govea MD Unavailable Nancy Jarvis MD PCP Isaiah Sloan MD Unavailable Dean Maldonado MD Unavailable Leandro Dejesus MD Unavailable Unavailable Eliot Dia RN Unavailable Unavailable Saeed Bosch DO Unavailable Unavailable Stanton Lopez RN Unavailable Unavailable Leandro Redd DO Unavailable Naresh Bradshaw MD Unavailable Rosie Negron MD Unavailable Paradise Bradley MD Unavailable Hung Upton RN Unavailable Unavailable Reason for Visit * Reason Comments Medication Refill Encounter Details Date Type Department Care Team Description 01/19/2018 Refill [facility] Paradise Bradley MD Physicians - Internal [address] [place] [address] [address] [place] [address] Pav[address] Level [address]A [phone] [address] [facility] [place] [id number] Social History Tobacco Use Types Packs/Day Years Used Date Never Smoker Smokeless Tobacco: Never Used Alcohol Use Drinks/Week oz/Week Comments No 0 Standard 0.0 drinks or equivalent Sex Assigned at Date Recorded Not on file as of this encounter Functional Status Functional Status Response Date of Assessment Does the patient have a hearing impairment: No 03/10/2017 Does the patient have a visual impairment: No 03/10/2017 Does the patient have impaired ambulation: No 03/10/2017 Does the patient have an activity of daily living No 03/10/2017 (ADL) impairment: Does the patient have an instrumental activity of No 03/10/2017 daily living (IADL) impairment: Cognitive Status Response Date of Assessment Does the patient have a cognitive impairment: No 03/10/2017 as of this encounter Plan of Treatment Not on fileas of this encounter Visit Diagnoses Not on filein this encounter
--- OUTSIDE RECORDS SUMMARY | 2018-01-20 11:16 | XMS REPORT | Clinical Summary ---
Author Author [facility] Organization [facility] Address Unknown Phone Unavailable Care Team Providers Care Parts Person Name Role Phone Savannah Mcnair MD Unavailable Ninfa Durham RN Unavailable Sol Lilly RN Unavailable Unavailable Kristina Mathews DO [id number] Kim Govea MD Unavailable Nancy Jarvis MD PCP Isaiah Sloan MD Unavailable Dean Maldonado MD Unavailable Leandro Dejesus MD Unavailable Unavailable Eliot Dia RN Unavailable Unavailable Saeed Bosch DO Unavailable Unavailable Stanton Lopez RN Unavailable Unavailable Leandro Redd DO Unavailable Naresh Bradshaw MD Unavailable Rosie Negron MD Unavailable Paradise Bradley MD Unavailable Hung Upton RN Unavailable Unavailable Source Comments Some departments are not documenting in the electronic medical record. If you do not see the information that you expected, contact Release of Information in the Health Information Management department at [phone] for further assistance in locating additional records.[facility] Allergies Active Allergy Reactions Severity Noted Date Comments Tacrolimus HEADACHE Low 07/22/2016 Severe migraines Current Medications Prescription Sig. Disp. Refills Start End Date Status Date ondansetron (ZOFRAN ODT) Take 4 mg by mouth every Active 4 mg rapid dissolve 8 hours as needed for tablet Nausea. Carboxymethylcellulose-Gl Apply 1 Drop to both eyes Active ycern 0.5-0.9 % drop twice daily. aspirin EC 81 mg tablet Take 1 Tab by mouth 90 Tab 3 05/27/19 Active daily. Hold for now, 16 resume 06/03/15 albuterol (VENTOLIN HFA, Inhale 1-2 Puffs by mouth Active PROAIR HFA) 90 into the lungs every 4-6 mcg/actuation inhaler hours as needed for Wheezing. acetaminophen SR(+) Take 650 mg by mouth Active (TYLENOL) 650 mg tablet every 6 hours as needed for Pain. CALCIUM CARBONATE Take 2 Each by mouth Active (CALCIUM 500 PO) daily. hydroxychloroquine Take 200 mg by mouth Active (PLAQUENIL) 200 mg tablet twice daily. Take with food. carvedilol (COREG) 12.5 Take 1 Tab by mouth twice 90 Tab 1 02/12/20 Active mg tablet daily. Take with food. 16 potassium chloride SR Take 20 mEq by mouth Active (K-DUR) 20 mEq tablet daily. Take with a meal and a full glass of water. isometh/dichloral/acetam( Take one at the start of 18 Cap 1 07/05/19 Active +) (MIDRIN) 325/65/100 mg a headache, if symptoms 17 capsuleIndications: not resolved may take Migraine another. No more than twice in one day. Indications: MIGRAINE ALPRAZolam (XANAX) 0.25 Take 0.25 mg by mouth Active mg tablet three times daily as needed for Anxiety. esomeprazole DR(+) Take 40 mg by mouth every Active (NEXIUM) 40 mg capsule morning. Take on an empty stomach at least 1 hour before or 2 hours after food. MELATONIN PO Take 2 mg by mouth at Active bedtime daily. Pt uses drops mycophenolate mofetil Take 2 tablets by mouth 03/10/20 Active (CELLCEPT) 500 mg tablet twice daily. Take on an 17 empty stomach. Resume taking. fluticasone (FLONASE) 50 Apply 1 spray to each 16 g 3 03/31/20 Active mcg/actuation nasal spray nostril as directed 17 daily. Shake bottle gently before using. ergocalciferol (VITAMIN Take 12 capsules by mouth 12 capsule 1 Active D-2) 50,000 unit capsule every 7 days. 17 pregabalin (LYRICA) 75 mg Take 1 capsule by mouth 270 capsule 1 Active capsule three times daily. 18 eszopiclone(+) (LUNESTA) Take 1 tablet by mouth at 90 tablet 1 Active 1 mg tablet bedtime as needed for 18 Sleep. prednisone (DELTASONE) Take 2 tablets by mouth 270 tablet 1 08/29/19 Active 2.5 mg tablet daily with breakfast. 7.5 18 mg daily x 1 month then 5 mg daily until return visit cycloSPORINE (GENGRAF) 25 Take 3 capsules by mouth 270 capsule 2 09/01 Active mg capsule daily. Take 2 capsules 18 (50mg) every AM and 1 capsule (25mg) every PM lisinopril (PRINIVIL, Take 1 tablet by mouth 90 tablet 2 09/11/19 Active ZESTRIL) 30 mg tablet daily. [address] (CYMBALTA) TAKE ONE CAPSULE BY MOUTH 30 capsule 1 Active 60 mg capsule EVERY OTHER DAY FOR 1 18 WEEK, IF TOLERATED INCREASE TO 1 CAPSULE DAILY amitriptyline-gabapentin- Apply twice a day as 100 g 0 01/07/20 Active emu oil (bulk) in cream needed. 18 base no.135 (bulk) 4/4/10% topical cream promethazine (PHENERGAN) Take one tablet by mouth 30 tablet 1 Active 12.5 mg tablet every 8 hours as needed 18 for Nausea or Vomiting. Miscellaneous Medical 4 wheeled walker 1 Device 0 01/08/20 Active Supply [facility] [place] Brace (KNEE SUPPORT Knee brace - Left. 1 each 0 01/08/20 Active BRACE[place] [facility] Indication for 18 patellofemoral syndrome trimethoprim/sulfamethoxa Take 1 Tab by mouth three 12 Tab 2 08/31/19 01/21/20 Discontin zole (BACTRIM DS) 160/800 times weekly. 17 [address] mg tablet dul[address] (CYMBALTA) Take 1 cap every other 30 capsule 3 08/29/19 01/05/20 Discontin 60 mg capsule day for 1 week, then if 18 18 ued tolerated increase to 1 cap daily amitriptyline HCl BID as needed 50 g 1 01/07/20 01/07/20 Discontin (AMITRIPTYLINE/GABAPENTIN 18 18 ued /EMU OIL(#)) 08/13/09 % Active Problems Problem Noted Date CKD (chronic kidney disease) stage 2, GFR 60-89 ml/min 05/28/2017 Morbid obesity ([facility]) 03/13/2017 Essential hypertension 03/06/2017 SLE (systemic lupus erythematosus) ([facility]) 03/05/2017 Nausea and vomiting 08/27/2016 Fever 08/27/2016 GERD (gastroesophageal reflux disease) 08/27/2016 Migraine without aura and without status migrainosus, not intractable 2016 ASHELY (acute kidney injury) ([facility]) 12/28/2015 Anemia 12/28/2015 IIH (idiopathic intracranial hypertension) 10/16/2015 Stage IV lupus nephritis (WHO) ([facility]) 02/10/2015 Sepsis ([facility]) 12/23/2014 Nephrotic range proteinuria 12/10/2014 Pyuria, sterile 12/10/2014 Hematuria 12/10/2014 HTN (hypertension) 12/10/2014 Lupus (systemic lupus erythematosus) ([facility]) 09/14/2014 Last Assessment & Plan: Patient with [...] anti-cardiolipin antibiody - F/U in November in [place] Encounters Date Type Specialty Care Team Description 01/19/2018 Telephone Rheumatology Paradise Bradley MD Worsening Symptoms 01/19/2018 Refill Allergy,Immunology and Paradise Bradley MD Rheumatology 01/13/2018 Telephone Nephrology Savannah Mcnair MD Follow-up Phone Call 01/07/2018 Telephone Rheumatology Paradise Bradley MD General Question 01/06/2018 Hospital Lab Savannah Mcnair MD Glomerular disease in Encounter systemic lupus erythematosus (HCC) 01/06/2018 Office Visit Rheumatology Paradise Bradley MD Systemic lupus erythematosus, unspecified SLE type, unspecified organ involvement status ([facility]) (Primary Dx); Chondromalacia of left patella; Nausea 01/06/2018 Office Visit Nephrology Savannah Mcnair MD Stage IV lupus nephritis (WHO) (HCC) (Primary Dx); 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to other renal disorders; Nephrotic range proteinuria; Other microscopic hematuria; Anemia, unspecified type; Essential hypertension; CKD (chronic kidney disease) stage 2, GFR 60-89 ml/min 01/06/2018 Hospital Radiology Paradise Bradley MD Encounter 01/06/2018 Pharmacy Visit 01/06/2018 Refill Rheumatology Paradise Bradley MD 01/04/2018 Refill Allergy,Immunology and Paradise Bradley MD Rheumatology 01/02/2018 Procedure Pass Radiology 01/01/2018 Telephone Rheumatology Paradise Bradely MD Follow Up (Left Knee Pain) 12/15/2017 Telephone Rheumatology Paradise Bradley MD General Question 11/27/2017 Telephone Rheumatology Paradise Bradley MD Follow Up (Sick/Antibiotics) 11/27/2017 Telephone Nephrology Savannah Mcnair MD Other 11/06/2017 Telephone Nephrology Savannah Mcnair MD Follow-up Phone Call 11/06/2017 Telephone Rheumatology Paradise Bradley MD Appointment 10/30/2017 Telephone Allergy,Immunology and Paradise Bradley MD Appointment Question Rheumatology from Last 3 Months Immunizations Name Dates Previously Given Next Due Flu Vaccine=>65 YO 05/28/2017 High-Dose (PF) Flu Vaccine Trivalent=>3 01/27/2015 Yo (Preservative Free) Family History Medical History Relation Name Comments Asthma Brother Asthma Brother Cancer Maternal Grandfather Arthritis Maternal Grandmother Asthma Maternal Grandmother Cancer Maternal Grandmother Diabetes Maternal Uncle Diabetes Mother Hyperlipidemia Mother Hypertension Mother Relation Name Status Comments Brother Alive Brother Alive Maternal Grandfather Maternal Grandmother Maternal Uncle Mother Alive Social History Tobacco Use Types Packs/Day Years Used Date Never Smoker Smokeless Tobacco: Never Used Alcohol Use Drinks/Week oz/Week Comments No 0 Standard 0.0 drinks or equivalent Sex Assigned at Date Recorded Not on file Last Filed Vital Signs Vital Sign Reading Time Taken Blood Pressure 144/97 01/06/2018 12:21 PM CDT Pulse 81 01/06/2018 12:21 PM CDT Temperature 36.9 C (98.4 F) 01/06/2018 12:59 PM CDT Respiratory Rate 16 08/27/2017 12:43 PM CDT Oxygen Saturation 99% 01/06/2018 12:21 PM CDT Inhaled Oxygen - - Concentration Weight 135.4 kg (298 lb 9.6 oz) 01/06/2018 12:21 PM CDT Height 172.7 cm (5' 8") 01/06/2018 12:21 PM CDT Body Mass Index 45.4 01/06/2018 12:21 PM CDT Plan of Treatment Health Maintenance Due Date Last Done Comments PHYSICAL (COMPREHENSIVE) 11/07/2002 EXAM HPV VACCINES (1 of 3 - 11/07/2006 Female 3-dose series) PERTUSSIS VACCINE 11/07/2006 HIV SCREENING 11/07/2010 TETANUS VACCINE 11/07/2012 CERVICAL CANCER SCREENING 11/07/2016 INFLUENZA VACCINE 02/09/2018 05/28/2017, 01/27/2015, 02/22/2009 Implants Implanted Type Area Rn Rehabilitation Device Expiration Model / Identifier Date Serial / Lot Power Port Results * ANTI-AKIACHAK DNA,TITER (01/06/2018 2:44 PM) Anti-DNA Titer > PT=[id number] <10 TITER MAIN LAB Performing Organization Address [facility] Phone Number MAIN LAB [address] [place] [address] * ANTI-NUCLEAR AB(URSULA)-QUANT (01/06/2018 2:44 PM) URSULA Titer/Pattern > [id number]: HOMOGENEOUS <80 MAIN LAB Performing Organization Address [facility] Phone Number MA[facility] LAB [address] [place] [address] * PARATHYROID HORMONE (01/06/2018 2:44 PM) PTH Hormone 71.3 (H) 10 - 65 PG/ML MAIN LAB Specimen Blood Performing Organization Address [facility] Phone Number MA[facility] LAB [address] [place] [address] * ANTI-DNA DOUBLE STRAND (01/06/2018 2:44 PM) DNA Double Strand AB SEE TITER <10 TITER MAIN LAB Specimen Blood Performing Organization Address [facility] Phone Number MAIN LAB [address] [place] [address] * 25-OH VITAMIN D (D2 + D3) (01/06/2018 2:44 PM) Vitamin D(25-OH)Total 11.4 (L) 30 - 80 NG/ML MAIN LAB Specimen Blood Performing Organization Address City[facility] Phone Number [facility] MA[facility] [address] [place] [address] * CBC AND DIFF (01/06/2018 2:44 PM) White Blood Cells 6.8 4.5 - 11.0 K/UL [facility] MAIN [facility] RBC 4.48 4.0 - 5.0 M/UL [facility] MAIN LAB Hemoglobin 11.7 (L) 12.0 - 15.0 GM/DL [facility] MAIN LAB Hematocrit 34.5 (L) 36 - 45 % [facility] MAIN [facility] MCV 77.1 (L) 80 - 100 FL [facility] MAIN LAB MCH 26.1 26 - 34 PG [facility] MAIN [facility] MCHC 33.9 32.0 - 36.0 G/DL [facility] MAIN [facility] RDW 16.5 (H) 11 - 15 % [facility] MAIN [facility] Platelet Count 297 150 - 400 K/UL [facility] MAIN [facility] MPV 8.6 7 - 11 FL [facility] MAIN [facility] Neutrophils 53 41 - 77 % [facility] MA[facility] Lymphocytes 36 24 - 44 % [facility] MA[facility] Monocytes 9 4 - 12 % [facility] MA[facility] Eosinophils 1 0 - 5 % [facility] MA[facility] Basophils 1 0 - 2 % [facility] MAIN [facility] Absolute Neutrophil Count 3.60 1.8 - 7.0 K/UL [facility] MAIN [facility] Absolute Lymph Count 2.50 1.0 - 4.8 K/UL [facility] MAIN [facility] Absolute Monocyte Count 0.60 0 - 0.80 K/UL [facility] MAIN [facility] Absolute Eosinophil Count 0.10 0 - 0.45 K/UL [facility] MAIN [facility] Absolute Basophil Count 0.00 0 - 0.20 K/UL MAIN LAB Specimen Blood Performing Organization Address City/[facility]/Zipcode Phone Number [facility] MAIN LAB [address] [place] [address] * C3 COMPLEMENT 3 (01/06/2018 2:44 PM) [facility] C3 135.0 88 - 200 MG/DL MAIN LAB Specimen Blood Performing Organization Address City/[facility]/Zipcode Phone Number [facility] MAIN LAB [address] [place] [address] * C4 COMPLEMENT 4 (01/06/2018 2:44 PM) [facility] C4 44.0 10 - 49 MG/DL [facility] MAIN LAB Specimen Blood Performing Organization Address [facility] Phone Number [facility] MAIN [facility] [address] [place] [address] * ANTI-NUCLEAR ANTIBODY(URSULA) (01/06/2018 2:44 PM) URSULA Screen SEE TITER <80 TITER [facility] MAIN LAB Specimen Blood Performing Organization Address [facility] Phone Number [facility] MAIN [facility] [address] [place] [address] * URIC ACID (01/06/2018 2:44 PM) Uric Acid 6.3 2.0 - 7.0 MG/DL [facility] MAIN LAB Specimen Blood Performing Organization Address [facility] Phone Number [facility] MAIN LAB [address] [place] [address] * PHOSPHORUS (01/06/2018 2:44 PM) Phosphorus 3.7 2.0 - 4.0 MG/DL [facility] MAIN LAB Specimen Blood Performing Organization Address [facility] Phone Number [facility] MAIN [facility] [address] [place] [address] * COMPREHENSIVE METABOLIC PANEL (01/06/2018 2:44 PM) Sodium 136 (L) 137 - 147 MMOL/L [facility] MAIN LAB Potassium 3.5 3.5 - 5.1 MMOL/L [facility] MAIN LAB Chloride 106 98 - 110 MMOL/L [facility] MAIN LAB Glucose 103 (H) 70 - 100 MG/DL [facility] MAIN LAB Blood Urea Nitrogen 19 7 - 25 MG/DL [facility] MAIN LAB Creatinine 1.43 (H) 0.4 - 1.00 MG/DL [facility] MAIN LAB Calcium 9.2 8.5 - 10.6 MG/DL [facility] MAIN [facility] Total Protein 6.6 6.0 - 8.0 G/DL [facility] MAIN [facility] Total Bilirubin 0.3 0.3 - 1.2 MG/DL [facility] MAIN [facility] Albumin 3.3 (L) 3.5 - 5.0 G/DL [facility] MAIN [facility] Alk Phosphatase 64 25 - 110 U/L [facility] MAIN [facility] AST (SGOT) 15 7 - 40 U/L [facility] MAIN [facility] CO2 23 21 - 30 MMOL/L [facility] MAIN [facility] ALT (SGPT) 14 7 - 56 U/L [facility] MAIN [facility] Anion Gap 7 3 - 12 [facility] MAIN LAB eGFR Non 46 (L) >60 mL/min [facility] MAIN LAB Comment: The eGFR is not validated for use in drug dosing adjustments.Continue to use estimated creatinine clearance per dosing reference text.Please contact the Clinical Pharmacist for questions. eGFR 56 (L) >60 mL/min [facility] MAIN LAB Comment: The eGFR is not validated for use in drug dosing adjustments.Continue to use estimated creatinine clearance per dosing reference text.Please contact the Clinical Pharmacist for questions. Specimen Blood Performing Organization Address City/[facility]/Zipcode Phone Number [employer] MAIN LAB [address] [place] [address] * PROTEIN/CR RATIO,UR RAN (01/06/2018 12:36 PM) Protein, Random 527 MG/DL [facility] MAIN [facility] Creatinine, Random 135 MG/DL [facility] MAIN LAB Protein/CR ratio 3.9 [facility] MAIN LAB Specimen Urine - Urine Performing Organization Address [facility] Phone Number [facility] MAIN LAB [address] [place] [address] * MRI LOWER EXT JNT WO CONT LEFT (01/06/2018 10:22 AM) Impressions Performed At 1.Multiple eccentric T1 and T2 hypointense lesions within the distal femur [facility] RESULTS and proximal tibia/fibula demonstrating varying degrees central T2 hyperintensity compatible with multiple nonossifying fibromas. 2.Moderate patellar apex chondromalacia. Approved by Mihir Lopez M.D. on 01/06/2018 11:24 AM By my electronic signature, I attest that I have personally reviewed the images for this examination and formulated the interpretations and opinions expressed in this report Finalized by Jeff Horn M.D. on 01/06/2018 11:32 AM. Dictated by Mihir Lopez M.D. on 01/06/2018 10:32 AM. Narrative Performed At MRI of the left knee [facility] RESULTS History: 22-year-old female, Left knee pain - history of lupus to evaluate for mechanical derangement or avascular necrosis. Chronic pain of left knee. Comparison: Knee radiographs from June 11, 2016. Technique: Multiple axial, sagittal, and coronal T1, T2, and proton density weighted images were obtained of the left knee without the use of IV contrast. Findings: Medial Joint Compartment:The meniscus is unremarkable and intact without evidence of injury.The articular cartilage is unremarkable. There is mild hazy signal associated with the meniscal root attachment. Lateral Joint Compartment:The meniscus is unremarkable and intact without evidence of injury.The articular cartilage is unremarkable. Patellofemoral Joint Compartment:The patella is normal in alignment. There is a approximately 50% cartilage defect within the mid patellar apex measuring 0.6 cm in transverse diameter. Ligaments and Tendons:The ACL, PCL, MCL, and LCL are intact and normal.The biceps femoris tendon, popliteus tendon, and popliteal fibular ligaments are all intact and unremarkable.The iliotibial band is unremarkable.The quadriceps tendon and patellar ligament are normal. Other structures: There is a T1 and T2 hypointense lesion within the distal posteromedial femoral metadiaphysis measuring 2.1 x 0.8 cm (series 7 image 13 ) with small area of central T2 hyperintensity. There is an additional T1 and T2 hypointense rounded lesion within the proximal medial tibia (series 7 image 9) . There is partial visualization of two additional lesions within the proximal tibia (series 7 image 12) and proximal fibula, one of which demonstrates central T2 hyperintensity along the medial margin of the proximal tibia. The alignment is maintained. The muscle bundles of the knee are unremarkable. Procedure Note Interface, Radiant Results - 01/06/2018 11:35 AM CDT MRI of the left knee History: 22-year-old female, Left knee pain - history of lupus to evaluate for mechanical derangement or avascular necrosis. Chronic pain of left knee. Comparison: Knee radiographs from June 11, 2016. Technique: Multiple axial, sagittal, and coronal T1, T2, and proton density weighted images were obtained of the left knee without the use of IV contrast. Findings: Medial Joint Compartment: The meniscus is unremarkable and intact without evidence of injury. The articular cartilage is unremarkable. There is mild hazy signal associated with the meniscal root attachment. Lateral Joint Compartment: The meniscus is unremarkable and intact without evidence of injury. The articular cartilage is unremarkable. Patellofemoral Joint Compartment: The patella is normal in alignment. There is a approximately 50% cartilage defect within the mid patellar apex measuring 0.6 cm in transverse diameter. Ligaments and Tendons: The ACL, PCL, MCL, and LCL are intact and normal. The biceps femoris tendon, popliteus tendon, and popliteal fibular ligaments are all intact and unremarkable. The iliotibial band is unremarkable. The quadriceps tendon and patellar ligament are normal. Other structures: There is a T1 and T2 hypointense lesion within the distal posteromedial femoral metadiaphysis measuring 2.1 x 0.8 cm (series 7 image 13) with small area of central T2 hyperintensity. There is an additional T1 and T2 hypointense rounded lesion within the proximal medial tibia (series 7 image 9). There is partial visualization of two additional lesions within the proximal tibia (series 7 image 12) and proximal fibula, one of which demonstrates central T2 hyperintensity along the medial margin of the proximal tibia. The alignment is maintained. The muscle bundles of the knee are unremarkable. IMPRESSION 1. Multiple eccentric T1 and T2 hypointense lesions within the distal femur and proximal tibia/fibula demonstrating varying degrees central T2 hyperintensity compatible with multiple nonossifying fibromas. 2. Moderate patellar apex chondromalacia. Approved by Mihir Lopez M.D. on 01/06/2018 11:24 AM By my electronic signature, I attest that I have personally reviewed the images for this examination and formulated the interpretations and opinions expressed in this report Finalized by Jeff Horn M.D. on 01/06/2018 11:32 AM. Dictated by Mihir Lopez M.D. on 01/06/2018 10:32 AM. Performing Organization Address City/State/[facility] Phone Number [facility] RESULTS * POC URINE DIPSTICK AUTO READ (01/06/2018) Urine Glucose POC norm IN CLINIC Urine Bilirubin POC neg IN CLINIC Urine Ketone POC neg IN CLINIC Urine Specific Aladdin 1.015 IN CLINIC POC Urine Blood POC 50 IN CLINIC Urine PH POC 6 IN CLINIC Urine Protein POC 500 IN CLINIC Urine Urobilinogen POC norm IN CLINIC Urine Nitrite POC neg IN CLINIC Urine Leukocytes POC neg IN CLINIC Color,UA IN CLINIC Turbidity,UA IN CLINIC Specimen Urine Performing Organization Address City/[facility] Phone Number IN CLINIC from Last 3 Months
--- OUTSIDE RECORDS SUMMARY | 2018-01-20 11:16 | XMS REPORT | Encounter Summary ---
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 Name Role Phone Savannah Mcnair MD Unavailable Ninfa Durham RN Unavailable Sol Lilly RN Unavailable Unavailable Kristina Mathews DO [id number] Kim Govea MD Unavailable Nancy Jarvis MD PCP Isaiah Slona MD Unavailable Dean Maldonado MD Unavailable Leandro Dejesus MD Unavailable Unavailable Eliot Dia RN Unavailable Unavailable Saeed Bosch DO Unavailable Unavailable Stanton Lopez RN Unavailable Unavailable Leandro Redd DO Unavailable Naresh Bradshaw MD Unavailable Rosie Negron MD Unavailable Paradise Bradley MD Unavailable Hung Upton RN Unavailable Unavailable Reason for Visit * Reason Comments Worsening Symptoms Encounter Details Date Type Department Care Team Description 01/19/2018 Telephone [facility] Paradise Bradley MD Worsening Symptoms Physicians-Rheumatology [address] [facility] [id number] [place] [address] [place] [address] [phone] Social History Tobacco Use Types Packs/Day Years [...] impairment: No 03/10/2017 as of this encounter Miscellaneous Notes * Telephone Encounter - Paradise Bradley MD - 01/20/2018 9:51 AM CDT I see that they are scheduled on the with Sports Medicine. Could we provide the number for their office to see about a sooner appointment either Friday or . In terms of pain medication, I thought she had issues with tolerating in the past. Plus, those would require paper prescriptions. Lyrica dose could be adjusted if she is under a total of 450 mg in a single day. I think being seen in the emergency room for evaluation and at least short term pain management would be helpful. * Telephone Encounter - Ava Mueller RN - 01/19/2018 11:07 AM CDT Message received from patient stating she is having a lot of leg pain. "Radha fell over the weekend and heard a loud pop", it caused more pain. Every time I try to walk I cant. "Every time I move the pain pain is a 10." Patient states she doesn't want to go to the ER, not sure is she should try a different pain medication or what to do? Spoke with patient and she reports that she "almost fell yesterday around 2pm and her knee popped". Since then every time she moves, she feels a surge of pain rating a 10. Patient reports that LEFT knee is not really swollen or red just warm to touch. States she has not gone to her PCP because its an hour away and doesn't feel the ER can properly treat her. Routing to Dr. Bradley for review and recommendations. in this encounter Plan of Treatment Not on fileas of this encounter Visit Diagnoses Not on filein this encounter
--- OUTSIDE RECORDS SUMMARY | 2018-01-20 11:17 | XMS REPORT | Encounter Summary ---
Author Author [facility] Organization [facility] Address Unknown Phone Unavailable Care Team Providers Care Electronic Sensing Equipment Assembler Name Role Phone Savannah Mcnair MD Unavailable Ninfa Durham RN Unavailable Sol Lilly RN Unavailable Unavailable Kristina Mathews DO [id number] Kim Govea MD Unavailable Nancy Jarvis MD PCP Isaiah Sloan MD Unavailable Dean Maldonado MD Unavailable Leandro Dejesus MD Unavailable Unavailable Eliot Dia RN Unavailable Unavailable Saeed Bosch DO Unavailable Unavailable Stanton Lopez RN Unavailable Unavailable Leandro Redd DO Unavailable Naresh Bradshaw MD Unavailable Rosie Negron MD Unavailable Paradise Bradley MD Unavailable Hung Upton RN Unavailable Unavailable Encounter Details Date Type Department Care Team Description 01/06/2018 Pharmacy Visit [facility] [address] [place] [address] Social History Tobacco Use Types Packs/Day Years [...]
--- OUTSIDE RECORDS SUMMARY | 2018-01-20 11:17 | XMS REPORT | Encounter Summary ---
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 Role Phone Savannah Mcnair MD Unavailable Ninfa Durham RN Unavailable Sol Lilly RN Unavailable Unavailable Kristina Mathews DO [id number] Kim Govea MD Unavailable Nancy Jarvis MD PCP Isaiah Sloan MD Unavailable Dean Maldonado MD Unavailable Leandro Dejesus MD Unavailable Unavailable Eliot Dia RN Unavailable Unavailable Saeed Bosch DO Unavailable Unavailable Stanton Lopez RN Unavailable Unavailable Leandro Redd DO Unavailable Naresh Bradshaw MD Unavailable Rosie Negron MD Unavailable Paradise Bradley MD Unavailable Hung Upton RN Unavailable Unavailable Reason for Referral * Radiology Services (Routine) Status Reason Specialty Diagnoses / Referred By Referred To Procedures Contact Contact Authorized Radiology Diagnoses Paradise Bradley, Libby Mri Chronic pain of MD [place] Training left knee [address] [place] [address] [place], [place] [address] JNT WO CONT LEFT [id number] Phone: * Radiology Services (Routine) Status Reason Specialty Diagnoses / Referred By Referred To Procedures Contact Contact Authorized Radiology Diagnoses Paradise Bradley, Arw Mri Chronic pain of MD [place] left knee [address] [place] [address] [place], [place] [address] JNT WO CONT LEFT [address] Phone: Reason for Visit * Radiology Services (Routine) Status Reason Specialty Diagnoses / Referred By Referred To Procedures Contact Contact Authorized Radiology Diagnoses Paradise Bradley, Arw Mri Chronic pain of MD Shyanne Training left knee [address] [place] [address] [place], [place] [address] JNT WO CONT LEFT [id number] Phone: Encounter Details Date Type Department Care Team Description 01/06/2018 [facility] Paradise Bradley MD Encounter [facility] [address] [place] [address] [place] [address] [address] Moraes [phone] [place] [address] [phone] Social History Tobacco Use Types Packs/Day Years [...] impairment: No 03/10/2017 as of this encounter Medications at Time of Discharge Medication Sig. Disp. Refills Start Date End Date acetaminophen SR(+) Take 650 mg by mouth (TYLENOL) 650 mg tablet every 6 hours as needed for Pain. albuterol (VENTOLIN HFA, Inhale 1-2 Puffs by mouth PROAIR HFA) 90 into the lungs every 4-6 mcg/actuation inhaler hours as needed for Wheezing. ALPRAZolam (XANAX) 0.25 Take 0.25 mg by mouth mg tablet three times daily as needed for Anxiety. amitriptyline-gabapentin- Apply twice a day as 100 g 0 01/06/2018 emu oil (bulk) in cream needed. base no.135 (bulk) 4/4/10% topical cream aspirin EC 81 mg tablet Take 1 Tab by mouth 90 Tab 3 05/27/2015 daily. Hold for now, resume 06/03/15 CALCIUM CARBONATE Take 2 Each by mouth (CALCIUM 500 PO) daily. Carboxymethylcellulose-Gl Apply 1 Drop to both eyes ycern 0.5-0.9 % drop twice daily. carvedilol (COREG) 12.5 Take 1 Tab by mouth twice 90 Tab 1 02/12/2016 mg tablet daily. Take with food. cycloSPORINE (GENGRAF) 25 Take 3 capsules by mouth 270 capsule 2 09/01 mg capsule daily. Take 2 capsules (50mg) every AM and 1 capsule (25mg) every PM duloxetine DR (CYMBALTA) TAKE ONE CAPSULE BY MOUTH 30 capsule 1 2017 60 mg capsule EVERY OTHER DAY FOR 1 WEEK, IF TOLERATED INCREASE TO 1 CAPSULE DAILY ergocalciferol (VITAMIN Take 12 capsules by mouth 12 capsule 1 2016 D-2) 50,000 unit capsule every [address](+) Take 40 mg by mouth every (NEXIUM) 40 mg capsule morning. Take on an empty stomach at least 1 hour before or 2 hours after food. eszopiclone(+) (LUNESTA) Take 1 tablet by mouth at 90 tablet 1 2017 1 mg tablet bedtime as needed for Sleep. fluticasone (FLONASE) 50 Apply 1 spray to each 16 g 3 03/31/2017 mcg/actuation nasal spray nostril as directed daily. Shake bottle gently before using. hydroxychloroquine Take 200 mg by mouth (PLAQUENIL) 200 mg tablet twice daily. Take with food. isometh/dichloral/acetam( Take one at the start of 18 Cap 1 2016 +) (MIDRIN) 325/65/100 mg a headache, if symptoms capsuleIndications: not resolved may take Migraine another. No more than twice in one day. Indications: MIGRAINE Leg Brace (KNEE SUPPORT Knee brace - Left. 1 each 0 01/07/2018 BRACE) [facility] Indication for patellofemoral syndrome lisinopril (PRINIVIL, Take 1 tablet by mouth 90 tablet 2 09/10/2017 ZESTRIL) 30 mg tablet daily. MELATONIN PO Take 2 mg by mouth at bedtime daily. Pt uses drops Miscellaneous Medical 4 wheeled walker 1 Device 0 01/07/2018 Supply [facility] mycophenolate mofetil Take 2 tablets by mouth 03/10/2017 (CELLCEPT) 500 mg tablet twice daily. Take on an empty stomach. Resume taking. ondansetron (ZOFRAN ODT) Take 4 mg by mouth every 4 mg rapid dissolve 8 hours as needed for tablet Nausea. potassium chloride SR Take 20 mEq by mouth (K-DUR) 20 mEq tablet daily. Take with a meal and a full glass of water. prednisone (DELTASONE) Take 2 tablets by mouth 270 tablet 1 2017 2.5 mg tablet daily with breakfast. 7.5 mg daily x 1 month then 5 mg daily until return visit pregabalin (LYRICA) 75 mg Take 1 capsule by mouth 270 capsule 1 2017 capsule three times daily. trimethoprim/sulfamethoxa Take 1 Tab by mouth three 12 Tab 2 201601/20/2018 zole (BACTRIM DS) 160/800 times weekly. mg tablet as of this encounter Plan of Treatment Not on fileas of this encounter Results * MRI LOWER EXT JNT WO CONT [...] on 01/06/2018 10:32 AM. Performing Organization Address City/State/Zipcode Phone Number [facility] RESULTS in this encounter Visit Diagnoses Diagnosis Chronic pain of left knee Pain in joint, lower leg
--- OUTSIDE RECORDS SUMMARY | 2018-01-20 11:17 | XMS REPORT | Encounter Summary ---
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 Name Role Phone Savannah Mcnair MD Unavailable Ninfa Durham RN Unavailable Sol Lilly RN Unavailable Unavailable Kristina Mathews DO [id number] Kim Govea MD Unavailable Nancy Jarvis MD PCP Isaiah Sloan MD Unavailable Dean Maldonado MD Unavailable Leandro Dejesus MD Unavailable Unavailable Eliot Dia RN Unavailable Unavailable Saeed Bosch DO Unavailable Unavailable Stanton Lopez RN Unavailable Unavailable Leandro Redd DO Unavailable Naresh Bradshaw MD Unavailable Rosie Negron MD Unavailable Paradise Bradley MD Unavailable Hung Upton RN Unavailable Unavailable Reason for Referral * Consult, Test & Treat (Routine) Status Reason Specialty Diagnoses / Referred By Referred To Procedures Contact Contact No Auth Needed Specialty Orthopedic Surgery Diagnoses Paradise Bradley Thompson, Lucas, Services Chondromalacia MD OSEI Required of left patella [address] [place] [address] Phone: Scheduling Instructions For any questions, call [phone]. Reason for Visit * Reason Comments Lupus Encounter Details Date Type Department Care Team Description 01/06/2018 Office Visit [facility] Paradise Bradley MD Systemic lupus [facility] [address] [facility] [id number] unspecified SLE type, [address] [place] [address] [place] [address] involvement status (HCC) [phone] (Primary Dx); Chondromalacia of left patella; Nausea Social History Tobacco Use Types Packs/Day Years Used Date Never Smoker Smokeless Tobacco: Never Used Alcohol Use Drinks/Week oz/Week Comments No 0 Standard 0.0 drinks or equivalent Sex Assigned at Date Recorded Not on file as of this encounter Last Filed Vital Signs Vital Sign Reading Time Taken Blood Pressure 144/97 01/06/2018 12:21 PM CDT Pulse 81 01/06/2018 12:21 PM CDT Temperature 36.9 C (98.4 F) 01/06/2018 12:59 PM CDT Respiratory Rate - - Oxygen Saturation 99% 01/06/2018 12:21 PM CDT Inhaled Oxygen - - Concentration Weight 135.4 kg (298 lb 9.6 oz) 01/06/2018 12:21 PM CDT Height 172.7 cm (5' 8") 01/06/2018 12:21 PM CDT Body Mass Index 45.4 01/06/2018 12:21 PM CDT in this encounter Functional Status Functional Status Response [...] impairment: No 03/10/2017 as of this encounter Progress Notes * Paradise Bradley MD - 01/06/2018 12:00 PM CDT Formatting of this note may be different from the original. Date of Service: 01/06/2018 Subjective: Amelie Quijano is a 22 y.o. female. History of Present Illness Ms. Quijano with history of systemic lupus erythematosus with manifestations including lupus nephritis, inflammatory arthritis, malar rash, and alopecia returns for follow-up. Rheumatologic History: Ms. Quijano was initially diagnosed in 2005 with manifestations including inflammatory arthritis, malar rash, and alopecia. Serology included positive URSULA , dsDNA, and hypocomplementemia. 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 For the indication of lupus nephritis, she received cyclophosphamide for 6 months (6500 mg) in addition to hydroxychloroquine and prednisone. She was then subsequently transitioned to mycophenolate mofetil which she continued until 2007. She continued on prednisone for 3-4 years. She presented to Rheumatology clinic in spring 2014 with worsening arthralgia and rash. In addition, proteinuria and hematuria was noted and she was started on mycophenolate mofetil and prednisone. She underwent a renal biopsy in 2014 but only 2-4 glomeruli were present so that it was difficult to classify. Mycophenolate mofetil was increased to 3000 mg in divided doses. At this same time she was hospitalized with fever and headache. Lumbar puncture demonstrated elevated pressure; MRI and MRV were unrevealing. In 02/2015, prednisone was increased to 60 mg. In 05/2015, she had worsening protein to creatinine ratio, increased to 7. She was admitted for biopsy and this demonstrated class III A/C changes. In 07/2015, She was switched from mycophenolate mofetil to cyclophosphamide and received 6 infusions of 500 mg. In 08/2015, protein/creatinine ratio improved to 4.3. Her last infusion was 09/2015. Ms. Quijano was admitted in 12/2015 for chest pain and hypertension at which time she was on prednisone 25 mg daily in addition to hydroxychloroquine. Her creatinine increased to 3.91 from baseline 0.9. Protein/creatinine ratio was increased to 10.5. During her admission, she received pulse methylprednisolone followed by prednisone 60 mg daily. She was discharged and then received 2 doses of rituximab: 01/05/2016 and 01/19/2016. She was seen in follow-up on 01/17/2016. She was having difficulty with a burning erythematous rash. Biopsy was performed that did not demonstrate abnormality. This improved with reduction in prednisone. Ms. Quijano was seen in 05/2016. At that time, she was on prednisone 25 mg daily. Her creatinine at that visit was 1.22. Double-stranded DNA antibodies were elevated at greater than 1280 with normal complements. Protein to creatinine ratio was 7.7. There was a trial of tacrolimus but unfortunately she was unable to tolerate this due to side effects. She was seen in follow-up on 08/27/2016. At the time of that visit she was having increasing fatigue, rash, and high-grade fever. As a result, she was admitted directly to the hospital. There was not clear source of infection. She had symptomatic improvement. At that time she was continued on prednisone of 20 mg daily. Subsequently, she was started on mycophenolate mofetil following discharge. In early September she was started on higher doses of prednisone 60 mg due to symptoms of fatigue, weakness, and pruritic skin and relatively fast prednisone taper was planned. She underwent her second round of rituximab on 09/26/2016 and 10/11/2016. In December 2016 she reported increasing difficulty with malar rash, fatigue, flank pain and stiffness in the joints. Initially prednisone was increased from 30 mg. She then was seen by her primary care physician there was concern about potential urinary tract infection including pyelonephritis. She was given ceftriaxone as well as triamcinolone 80 mg intramuscularly. She then had an increasing prednisone taper of 60 mg for 3 days,40 mg for 3 days,25 mg for 3 days. She then returned to prednisone at 15 mg daily. In late 12/2016, she was started on cyclosporine for persistent proteinuria. She returned in 01/2017, urine protein to creatinine ratio had improved to 0.1. She was hospitalized between March 05-2016 for sore throat, rhinorrhea, and neck pain. She was treated locally with her current doses of antibiotics as well as escalation in prednisone with no improvement of symptoms. Due to the persistent neck pain, she underwent a lumbar puncture. She developed worsening headache after the lumbar puncture and had a blood patch. No infectious etiology was identified. She was discharged on prednisone 20 mg daily. In 03/2017, prednisone was increased after being evaluated by her primary care provider in the setting of sore throat, nausea, and vomiting. A prednisone taper was recommended. At the time of that visit in 03/2017, urine protein to creatinine ratio was 4.5. In 05/2017, creatinine remained normal with protein to creatinine ratio of 6.3. In 08/2017, she returned for follow with creatinine of 1.05 and protein to creatinine ratio of 6.0. Prednisone was increased slightly to 5 mg from 2.5 at that time. She remained on mycophenolate mofetil and cyclosporine. Interval history: In the last month she has had significantly worsening left knee pain. In conjunction with the left knee pain, she has been experiencing left hip pain which she describes as both in the lateral region of the hip as well as in the groin. She is having a difficult time ambulating for example to class because of the pain. She has a feeling like her knee is going to give out. She did have a fall as a result of these symptoms. She was evaluated locally in physical therapy was recommended. This had to be discontinued due to significant pain. She has tried topical NSAIDs without any relief. 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 There was no evidence of avascular necrosis. She was treated in November for upper respiratory infection. She was given antibiotics and corticosteroids. She has been having significant difficulty with nausea that has been unresponsive to ondansetron. She reports not having other joint pain with the exception of the left knee. Her breathing symptoms are back to her baseline. She has not had any recent malar rash or other rash. She has not experienced any recent oral ulcers. Current rheumatologic medications: mycophenolate mofetil 1000 mg BID, cyclosporine 25 mg BID, hydroxychloroquine 400 mg daily, prednisone 5 mg daily. Review of Systems Constitutional: Positive for activity change, appetite change, diaphoresis and fatigue. Respiratory: Positive for apnea and shortness of breath. Musculoskeletal: Positive for arthralgias, gait problem and joint swelling. Psychiatric/Behavioral: Positive for dysphoric mood. The patient is nervous/ anxious. All other systems reviewed and are negative. Objective: acetaminophen SR(+) (TYLENOL) 650 mg tablet Take 650 mg by mouth every 6 hours as needed for Pain. albuterol (VENTOLIN HFA, PROAIR HFA) 90 mcg/actuation inhaler Inhale 1-2 Puffs by mouth into the lungs every 4-6 hours as needed for Wheezing. ALPRAZolam (XANAX) 0.25 mg tablet Take 0.25 mg by mouth three times daily as needed for Anxiety. aspirin EC 81 mg tablet Take 1 Tab by mouth daily. Hold for now, resume CALCIUM CARBONATE (CALCIUM 500 PO) Take 2 Each by mouth daily. Carboxymethylcellulose-Glycern 0.5-0.9 % drop Apply 1 Drop to both eyes twice daily. carvedilol (COREG) 12.5 mg tablet Take 1 Tab by mouth twice daily. Take with food. (Patient taking differently: Take 12.5 mg by mouth daily. Take with food.) cycloSPORINE (GENGRAF) 25 mg capsule Take 3 capsules by mouth daily. Take 2 capsules (50mg) every AM and 1 capsule (25mg) every PM (Patient taking differently: Take 25 mg by mouth twice daily.) duloxetine DR (CYMBALTA) 60 mg capsule Take 1 cap every other day for 1 week , then if tolerated increase to 1 cap daily ergocalciferol (VITAMIN D-2) 50,000 unit capsule Take 12 capsules by mouth every [address](+) (NEXIUM) 40 mg capsule Take 40 mg by mouth every morning. Take on an empty stomach at least 1 hour before or 2 hours after food. eszopiclone(+) (LUNESTA) 1 mg tablet Take 1 tablet by mouth at bedtime as needed for Sleep. fluticasone (FLONASE) 50 mcg/actuation nasal spray Apply 1 spray to each nostril as directed daily. Shake bottle gently before using. hydroxychloroquine (PLAQUENIL) 200 mg tablet Take 200 mg by mouth twice daily. Take with food. isometh/dichloral/acetam(+) (MIDRIN) 325/65/100 mg capsule Take one at the start of a headache, if symptoms not resolved may take another. No more than twice in one day. Indications: MIGRAINE lisinopril (PRINIVIL, ZESTRIL) 30 mg tablet Take 1 tablet by mouth daily. MELATONIN PO Take 2 mg by mouth at bedtime daily. Pt uses drops mycophenolate mofetil (CELLCEPT) 500 mg tablet Take 2 tablets by mouth twice daily. Take on an empty stomach. Resume taking. ondansetron (ZOFRAN ODT) 4 mg rapid dissolve tablet Take 4 mg by mouth every 8 hours as needed for Nausea. potassium chloride SR (K-DUR) 20 mEq tablet Take 20 mEq by mouth daily. Take with a meal and a full glass of water. prednisone (DELTASONE) 2.5 mg tablet Take 2 tablets by mouth daily with breakfast. 7.5 mg daily x 1 month then 5 mg daily until return visit pregabalin (LYRICA) 75 mg capsule Take 1 capsule by mouth three times daily. trimethoprim/sulfamethoxazole (BACTRIM DS) 160/800 mg tablet Take 1 Tab by mouth three times weekly. Vitals: 01/06/18 1221 BP: (!) 144/97 Pulse: 81 Temp: 37.2 C (99 F) TempSrc: Oral SpO2: 99% Weight: 135.4 kg (298 lb 9.6 oz) Height: 172.7 cm (68") Body mass index is 45.4 kg/m. Physical Exam General: Alert and oriented, no acute distress. Eye: Clear conjunctiva and lids. HEENT: Moist mucous membranes with no oral or nasal ulcers. Lymph: No cervical or supraclavicular lymphadenopathy. CV: Regular rate and rhythm; no murmur/gallop/rub. Vessels: Normal radial and pedal pulses. Pulm: Clear to auscultation bilaterally. Abdomen: Soft, nontender, nondistended. Skin: No malar rash, heliotrope rash, Gottron's papules, sclerodactyly, telangiectasias, or psoriatic plaques. MSK: Significant tenderness to palpation of the left knee including the patella , medial joint line, lateral joint line, and popliteal fossa. Limited range of motion of knee. No synovitis appreciated of the upper or lower extremities including sternoclavicular joints, acromioclavicular joints, shoulders, elbows, wrists, MCPs, PIPs, DIPs, and ankles. 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 We reviewed the findings of chondromalacia and also reviewed patellofemoral articulation and how this is associated with pain. There was no evidence of avascular necrosis. Will plan for sports medicine referral. Will plan to try a topical amitriptyline gabapentin-emu oil to provide symptomatic relief. Due to her history of lupus nephritis, systemic NSAIDs will be avoided. Will plan for prescription for 4 wheeled walker and knee brace to help with mobility. #2 Systemic lupus erythematosus with manifestations including lupus nephritis, inflammatory arthritis, malar rash, and alopecia She has not had clear breakthrough symptoms from the standpoint of rash, oral ulcers, or joint pain and swelling. We reviewed that the left knee symptoms would not be consistent with breakthrough lupus disease activity but rather a mechanical etiology. She met with Dr. Mcnair earlier today. We will plan to follow-up with her after the lab results are available. Her blood pressure is mildly elevated. Will await the results of the creatinine. #3 Nausea She is having significant difficulty with nausea that is not responding to ondansetron. We will plan for low-dose promethazine. We discussed risks in terms of sedating side effects. Recommendations: 1. Sports medicine referral for left knee pain with findings of chondromalacia of the patella. 2. Trial of promethazine. 3. Depending on lab results, continue hydroxychloroquine, cyclosporine, mycophenolate mofetil, and prednisone 5 mg daily. ADDENDUM: I reviewed with Dr. Mcnair. Results included hemoglobin 11.7, platelets 287, leukocytes 6.8, creatinine 1.43, albumin 3.3, ALT 14, C3 135, C4 44, double- stranded DNA >1:1280. UA with protein to creatinine ratio 3.9. We will plan to recheck creatinine in 1 week. Plan to confirm in terms of lisinopril dosing to help address hypertension. Could consider increasing the dose of mycophenolate mofetil but will wait for repeat creatinine. in this encounter Plan of Treatment Name Priority Associated Diagnoses Order Schedule AMB REFERRAL TO SPORTS MEDICINE Routine Chondromalacia of left Ordered: 01/06/2018 patella as of this encounter Visit Diagnoses Diagnosis Systemic lupus erythematosus, unspecified SLE type, unspecified organ involvement status (HCC) - Primary Chondromalacia of left patella Chondromalacia of patella Nausea Nausea alone
--- OUTSIDE RECORDS SUMMARY | 2018-01-20 11:17 | XMS REPORT | Encounter Summary ---
Author Author [facility] Organization [facility] Address Unknown Phone Unavailable Care Team Providers Care Forging Roll Operator Name Role Phone Savannah Mcnair MD Unavailable Ninfa Durham RN Unavailable Sol Lilly RN Unavailable Unavailable Kristina Mathews DO [id number] Kim Govea MD Unavailable Nancy Jarvis MD PCP Isaiah Sloan MD Unavailable Dean Maldonado MD Unavailable Leandro Dejesus MD Unavailable Unavailable Eliot Dia RN Unavailable Unavailable Saeed Bosch DO Unavailable Unavailable Stanton Lopez RN Unavailable Unavailable Leandro Redd DO Unavailable Naresh Bradshaw MD Unavailable Rosie Negron MD Unavailable Paradise Bradley MD Unavailable Hung Upton RN Unavailable Unavailable Reason for Visit * Reason Comments Follow-up Phone Call Encounter Details Date Type Department Care Team Description 01/13/2018 Telephone [facility] Savannah Mcnair MD Follow -up Phone Call Physicians - Internal [address] [facility] Medicine [place] [address] [place] [address] Pavilion Level 4C [phone] [address] [facility] [place] [address] Social History Tobacco Use Types Packs/Day Years [...] encounter Miscellaneous Notes * Telephone Encounter - Whit Suggs LPN - 01/20/2018 9:24 AM CDT Spoke with pt, states she is not taking the bactrim and she is taking lisinopril 30mg QD. Pt was tearful, states she fell on Friday, caught herself before she hit the ground but felt a pop in her knee. Ever since then she has been in a lot of pain. She is unable to bend it. I advised ER may be best choice d/t increasing pain however, she doesn't want to go to the ER as the doctor there "doesn't believe I have lupus and I don't want to deal with someone who doesn't believe me". Her mother works in the ER as an RT and they told her most they could do was give her an injection. Reports she can feel her "knee cap shifting". She has tried tramadol, tylenol, OTC numbing creams with no relief. She has been icing/heating her knee, she is unable to wrap it or wear a brace as it causes more pain. She did call Rheumatology yesterday and is waiting to hear back from them. Advised may not be able to offer much without being seen and evaluated. Pt v/u. * Telephone Encounter - Whit Suggs LPN - 01/16/2018 9:04 AM CDT Attempted to contact pt, LVM for pt to return call. * Telephone Encounter - Whit Suggs LPN - 01/14/2018 11:46 AM CDT Attempted to contact pt, LVM for pt to return call and advised sending [employer] message as well if she prefers to reply via [employer]. * Telephone Encounter - Whit Suggs LPN - 01/13/2018 10:[address] Mcnair, no need for pt to take bactrim. Check if pt taking lisinopril 30mg, may increase d/t high BP in clinic. Recheck chem 7 and VS in 1 wk. Rheumatology consider increasing MMF to 1500mg BID after repeat labs. in this encounter Plan of Treatment Name Priority Associated Diagnoses Order Schedule BASIC METABOLIC PANEL Routine Lupus nephritis (HCC) Expected: 01/20/2018 (Approximate), Expires: 01/20/2019 as of this encounter Visit Diagnoses Diagnosis Lupus nephritis (HCC) - Primary Systemic lupus erythematosus
--- OUTSIDE RECORDS SUMMARY | 2018-01-20 11:17 | XMS REPORT | Encounter Summary ---
Author Author [facility] Organization [facility] Address Unknown Phone Unavailable Care Team Providers Care Associate Financial Planner Name Role Phone Savannah Mcnair MD Unavailable Ninfa Durham RN Unavailable Sol Lilly RN Unavailable Unavailable Kristina Mathews DO [id number] Kim Govea MD Unavailable Nancy Jarvis MD [...] Date Type Department Care Team Description 01/06/2018 [facility] Savannah Mcnair MD Glomerular disease in Encounter [facility] 1st fl [address] systemic lupus [address] [place] [address] erythematosus (HCC) [place] [address] [place] [address] [phone] Social History Tobacco Use Types Packs/Day Years [...] - Left. 1 each 0 01/07/2018 BRACE) [facility] Indication for patellofemoral syndrome lisinopril (PRINIVIL, Take 1 tablet by mouth 90 tablet 2 09/10/2017 ZESTRIL) 30 mg tablet daily. MELATONIN PO Take 2 mg by mouth at bedtime daily. Pt uses drops Miscellaneous Medical 4 wheeled walker 1 Device 0 01/07/2018 Supply [facility] mycophenolate mofetil Take 2 tablets by mouth [...] capsule 1 2017 capsule three times daily. promethazine (PHENERGAN) Take one tablet by mouth 30 tablet 1 2017 12.5 mg tablet every 8 hours as needed for Nausea or Vomiting. trimethoprim/sulfamethoxa Take 1 Tab by mouth three 12 Tab 2 201601/20/2018 zole (BACTRIM DS) 160/800 times weekly. mg tablet as of this encounter Progress Notes * Bairon Bell RN - 01/06/2018 3:51 PM CDT Patient seen in Outpatient Lab. Right chest port accessed per policy. Labs drawn , verified and labeled. Port then de-accessed per protocol. No verbal complaints from patient. in this encounter Plan of Treatment Not on fileas of this encounter Results * ANTI-KASAAN DNA,TITER (01/06/2018 2:44 PM) Anti-DNA Titer > [id number] <10 TITER MAIN LAB Performing Organization Address [facility] Phone Number MAIN LAB [address] [place] [address] * ANTI-NUCLEAR AB(URSULA)-QUANT (01/06/2018 2:44 PM) URSULA Titer/Pattern > [id number]: HOMOGENEOUS <80 MAIN LAB Performing Organization Address [facility] Phone Number MAIN LAB [address] [place] [address] * ANTI-DNA DOUBLE STRAND (01/06/2018 2:44 PM) DNA Double Strand AB SEE TITER <10 TITER MAIN LAB Specimen Blood Performing Organization Address [facility] Phone Number MAIN LAB [address] [place] [address] * ANTI-NUCLEAR ANTIBODY(URSULA) (01/06/2018 2:44 PM) URSULA Screen SEE TITER <80 TITER MAIN LAB Specimen Blood Performing Organization Address [facility] Phone Number MAIN LAB [address] [place] [address] * C4 COMPLEMENT 4 (01/06/2018 2:44 PM) Complemnt C4 44.0 10 - 49 MG/DL MAIN LAB Specimen Blood Performing Organization Address [facility] Phone Number [facility] MAIN [facility] [address] [place] [address] * C3 COMPLEMENT 3 (01/06/2018 2:44 PM) Complemnt C3 135.0 88 - 200 MG/DL [facility] MAIN LAB Specimen Blood Performing Organization Address [facility] Phone Number [facility] MAIN LAB [address] [place] [address] * URIC ACID (01/06/2018 2:44 PM) Uric Acid 6.3 2.0 - 7.0 MG/DL [facility] MAIN LAB Specimen Blood Performing Organization Address [facility] Phone Number [facility] MAIN LAB [address] [place] [address] * PHOSPHORUS (01/06/2018 2:44 PM) Phosphorus 3.7 2.0 - 4.0 MG/DL [facility] MAIN LAB Specimen Blood Performing Organization Address [facility] Phone Number [facility] MAIN LAB [address] [place] [address] * PARATHYROID HORMONE (01/06/2018 2:44 PM) PTH Hormone 71.3 (H) 10 - 65 PG/ML MAIN LAB Specimen Blood Performing Organization Address [facility] Phone Number [facility] MAIN LAB [address] [place] [address] * COMPREHENSIVE METABOLIC PANEL (01/06/2018 2:44 PM) [...] for questions. Specimen Blood Performing Organization Address City/[facility]/Zipcode Phone Number MAIN LAB [address] [place] [address] * CBC AND DIFF (01/06/2018 2:44 PM) [...] Basophil Count 0.00 0 - 0.20 K/UL [facility] MAIN LAB Specimen Blood Performing Organization Address City/[facility]/Zipcode Phone Number MAIN LAB [address] [place] [address] * 25-OH VITAMIN D (D2 + D3) (01/06/2018 2:44 PM) Vitamin D(25-OH)Total 11.4 (L) 30 - 80 NG/ML [facility] MAIN LAB Specimen Blood Performing Organization Address City/[facility]/Zipcode Phone Number MAIN LAB [address] [place] [address] * PROTEIN/CR RATIO,UR RAN (01/06/2018 12:36 PM) Protein, Random 527 MG/DL [facility] MAIN LAB Creatinine, Random 135 MG/DL [facility] MAIN LAB Protein/CR ratio 3.9 [facility] MAIN LAB Specimen Urine - Urine Performing Organization Address City/[facility]/Zipcode Phone Number MAIN LAB [address] [place] [address] in this encounter Visit Diagnoses Diagnosis CKD (chronic kidney disease) stage 2, GFR 60-89 ml/min Chronic kidney disease, Stage II (mild) Stage IV lupus nephritis (WHO) (HCC) Systemic lupus erythematosus Admitting Diagnoses Diagnosis 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
--- OUTSIDE RECORDS SUMMARY | 2018-01-20 11:17 | XMS REPORT | Encounter Summary ---
Author Author [facility] Organization [facility] Address Unknown Phone Unavailable Care Team Providers Care Waste Disposal Attendant Name Role Phone Savannah Mcnair MD Unavailable Ninfa Durham RN Unavailable Sol Lilly RN Unavailable Unavailable Kristina Mathews DO [id number] Kim Govea MD Unavailable Nancy Jarvis MD [...] Date Type Department Care Team Description 01/06/2018 Refill [facility] Paradise Bradley MD Physicians-Rheumatology [address] [facility] [id number] [address] [place] [address] [place] [address] [phone] Social History Tobacco Use Types Packs/Day Years [...] encounter Miscellaneous Notes * Telephone Encounter - Ava Mueller RN - 01/06/2018 1:06 PM CDT Rerouted prescription per Dr. Bradley. in this encounter Plan of Treatment Not on fileas of this encounter Visit Diagnoses Not on filein this encounter
--- OUTSIDE RECORDS SUMMARY | 2018-01-20 11:17 | XMS REPORT | Encounter Summary ---
Author Author [facility] Organization [facility] Address Unknown Phone Unavailable Care Team Providers Care Slab Polisher Name Role Phone Savannah Mcnair MD Unavailable Ninfa Durham RN Unavailable Sol Lilly RN Unavailable Unavailable Kristina Mathews DO [id number] Kim Govea MD Unavailable Nancy Jarvis MD PCP Isaiah Sloan MD Unavailable Dean Maldonado MD Unavailable Leandro Dejesus MD Unavailable Unavailable Eliot Dia RN Unavailable Unavailable Saeed Bosch DO Unavailable Unavailable Stanton Lopez RN Unavailable Unavailable Leandro Redd DO Unavailable Naresh Bradshaw MD Unavailable Rosie Negron MD Unavailable Paradise Bradley MD Unavailable Hung Upton RN Unavailable Unavailable Reason for Visit * Reason Comments General Question Encounter Details Date Type Department Care Team Description 01/07/2018 Telephone [facility] Paradise Bradley MD General Question Physicians-Rheumatology [address] [facility] [id number] [place] [address] [place] [address] [place] [address] [phone] Social History Tobacco Use Types Packs/Day Years [...] Telephone Encounter - Ava Mueller RN - 01/07/2018 4:34 PM CDT Pt called to inquire about the orders for walker. OBIE for advising that it was faxed to [facility] in [place]. They should be contacting her. * Telephone Encounter - Lyric Avina RN - 01/07/2018 3:32 PM CDT Sent fax with wheelchair and leg brace orders to [facility] to . in this encounter Plan of Treatment Not on fileas of this encounter Visit Diagnoses Not on filein this encounter
--- OUTSIDE RECORDS SUMMARY | 2018-01-20 11:18 | XMS REPORT | Encounter Summary ---
Author Author [facility] Organization [facility] Address Unknown Phone Unavailable Care Team Providers Care Network Programmer Name Role Phone Savannah Mcnair MD Unavailable Ninfa Durham RN Unavailable Sol Lilly RN Unavailable Unavailable Kristina Mathews DO [id number] Kim Govea MD Unavailable Nancy Jarvis MD PCP Isaiah Sloan MD Unavailable Dean Maldonado MD Unavailable Leandro Dejesus MD Unavailable Unavailable Eliot Dia RN Unavailable Unavailable Saede Bosch DO Unavailable Unavailable Stanton Lopez RN Unavailable Unavailable Leandro Redd DO Unavailable Naresh Bradshaw MD Unavailable Rosie Negron MD Unavailable Paradise Bradley MD Unavailable Hung Upton RN Unavailable Unavailable Reason for Visit * Reason Comments Medication Refill Encounter Details Date Type Department Care Team Description 01/04/2018 Refill [facility] Paradise Bradley MD Physicians - Internal [address] [place] [address] [address] Orth[place] [address] Pavilion Level 4A [phone] [address] [place] [address] Social History Tobacco Use Types [...] encounter Miscellaneous Notes * Telephone Encounter - Lyric Avina RN - 01/05/2018 4:14 PM CDT Pharmacy is requesting a refill of Cymbalta. Pt last seen 08/27/17. Last labs were drawn 08/27/17. Pt scheduled for follow up on 01/06/18. Per last OV "Change to Cymbalta from Prozac (if ok with primary)." Routing to Dr. Bradley for approval. Pt will be seen in clinic 01/06/18. in this encounter Plan of Treatment Not on fileas of this encounter Visit Diagnoses Not on filein this encounter
--- OUTSIDE RECORDS SUMMARY | 2018-01-20 11:18 | XMS REPORT | Encounter Summary ---
Author Author [facility] Organization [facility] Address Unknown Phone Unavailable Care Team Providers Care Leno Sewer Name Role Phone Savannah Mcnair MD Unavailable Ninfa Durham RN Unavailable Sol Lilly RN Unavailable Unavailable Kristina Mathews DO [id number] Kim Govea MD Unavailable Nancy Jarvis MD [...] ST[address] [place] [address] [place], [place] [address] JNT WO CONT LEFT [id number] Phone: Reason for Visit * Reason Comments Follow Up Left Knee Pain Encounter Details Date Type Department Care Team Description 01/01/2018 Telephone [facility] Paradise Bradley MD Follow Up (Left Knee Physicians-Rheumatology [address] [facility]) [facility] [place] [address] [place] [address] [phone] Social History Tobacco Use Types Packs/Day Years [...] Telephone Encounter - Ava Mueller RN - 01/05/2018 12:57 PM CDT Called Radiology and scheduled MRI for [address] [facility] ([facility] , [place] [address]) [address] 5. Patient is to arrive 30 minutes early for MRI. Testing should take approx 45-60 min. Spoke with patient and provided the above information. * Telephone Encounter - Paradise Bradley MD - 01/02/2018 5:23 PM CDT MRI ordered. * Telephone Encounter - Ava Mueller RN - 01/02/2018 4:07 PM CDT Spoke with patient, she reports that the left knee started to swell more over night and she had to put some ice on it. Patient also says that she has Blue Cross/Blue Shield insurance and she would be happy to get the MRI done when she comes for the appointment. They never have a problem with cover at [facility] only at the smaller hospitals in the their home town. Advised patient that I would ask Dr. Bradley to order the MRI, we can plan to have it done before the appointment 0930 or 1000 as patient has an 1100 appointment then 1200 with us. We will need to confirm with outpatient Radiology on Friday the times. Pt v/u, * Telephone Encounter - Paradise Bradley MD - 01/02/2018 5:57 AM CDT I think a MRI would be helpful. Could we confirm right or left knee and then will plan for MRI without contrast of that knee to see if this would be possible to be done when she comes next week if we can get insurance approval. * Telephone Encounter - Ava Mueller RN - 01/01/2018 4:34 PM CDT Message received from patient stating "My knee has been hurting really bad for about a month and a half and I've been limping for about 2 weeks, close to falling and needing help getting up. Also it hurts where my leg and hip meet. I had an appointment for an MRI but it was canceled due to insurance." Spoke to patient and she reports that pain in the knee was on and off then started therapy and got a knee brace and it started to get better, then over the past two weeks it has gotten worse and she has not been able to attend therapy. Pt says that she is having trouble walking and her knee feels really loose. She is concerned that it is getting worse. The PCP is the one that originally ordered MRI. Patient says she is current on all her therapies. Routing to Dr. Bradley for review and [...] Diagnoses Diagnosis Chronic pain of left knee - Primary Pain in joint, lower leg
--- OUTSIDE RECORDS SUMMARY | 2018-01-20 11:18 | XMS REPORT | Encounter Summary ---
Author Author [facility] Organization [facility] Address Unknown Phone Unavailable Care Team Providers Care Food Safety Director Name Role Phone Savannah Mcnair MD Unavailable Ninfa Durham RN Unavailable Sol Lilly RN Unavailable Unavailable Kristina Mathews DO [id number] Kim Govea MD Unavailable Nancy Jarvis MD PCP Isaiah Sloan MD Unavailable Dean Maldonado MD Unavailable Leandro Dejesus MD Unavailable Unavailable Eliot Dia RN Unavailable Unavailable Saeed Bosch DO Unavailable Unavailable Stanton Lopez RN Unavailable Unavailable Leandro Redd DO Unavailable Naresh Bradshaw MD Unavailable Rosie Negron MD Unavailable Paradise Bradley MD Unavailable Hung Upton RN Unavailable Unavailable Reason for Visit * Reason Comments Appointment Question Encounter Details Date Type Department Care Team Description 10/30/2017 Telephone [facility] Paradise Bradley MD Appointment Question Physicians - Internal [address] [place] [address] [address] [place] [address] Pavilion Level 4A [phone] [address] [facility] [place] [id number] Social History Tobacco Use Types Packs/Day Years [...] encounter Miscellaneous Notes * Telephone Encounter - Jessica Moore RN - 10/30/2017 11:49 AM CDT Patient left voicemail requesting to cancel appointment 10/31/2017 and to reschedule. Per Dr. Bradley, left voicemail and sent MyChart notifying patient of appointment Friday12/26/2017 11:30 AM, [facility] location, notified scheduling to schedule: [address] [place] [address] [address], [address], first right to [address] [place] [address], second building on left Advised patient to let us know if unable to come to appointment. in this encounter Plan of Treatment Not on fileas of this encounter Visit Diagnoses Not on filein this encounter
--- OUTSIDE RECORDS SUMMARY | 2018-01-20 11:18 | XMS REPORT | Encounter Summary ---
Author Author [facility] Organization [facility] Address Unknown Phone Unavailable Care Team Providers Care Trapeze Artist Name Role Phone Savannah Mcnair MD Unavailable Ninfa Durham RN Unavailable Sol Lilly RN Unavailable Unavailable Kristina Mathews DO [id number] Kim Govea MD Unavailable Nancy Jarvis MD [...] Details Date Type Department Care Team Description 01/02/2018 Procedure Pass [facility] [address] [place], [place] [address] Social History Tobacco Use Types Packs/Day Years [...]
--- OUTSIDE RECORDS SUMMARY | 2018-01-20 11:18 | XMS REPORT | Encounter Summary ---
Author Author [facility] Organization [facility] Address Unknown Phone Unavailable Care Team Providers Care Radio Producer Name Role Phone Savannah Mcnair MD Unavailable Ninfa Durham RN Unavailable Sol Lilly RN Unavailable Unavailable Kristina Mathews DO [id number] Kim Govea MD Unavailable Nancy Jarvis MD PCP Isaiah Sloan MD Unavailable Dean Maldonado MD Unavailable Leandro Dejesus MD Unavailable Unavailable Eliot Dia RN Unavailable Unavailable Saeed Bosch DO Unavailable Unavailable Stanton Lopez RN Unavailable Unavailable Leandro Redd DO Unavailable Naresh Bradshaw MD Unavailable Rosie Negron MD Unavailable Paradise Bradley MD Unavailable Hung Upton RN Unavailable Unavailable Reason for Visit * Reason Comments Chronic Kidney Disease Encounter Details Date Type Department Care Team Description 01/06/2018 Office Visit [facility] Savannah Mcnair MD Stage IV lupus nephritis Physicians - Internal [address] (WHO) (HCC) (Primary Dx); Medicine [address] 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[place] [address] to other renal disorders; Pavilion Level 4C [phone] Nephrotic range [address] proteinuria; [place], [place] Other microscopic [id number] hematuria; [phone] Anemia, unspecified type; Essential hypertension; CKD (chronic kidney disease) stage 2, GFR 60-89 ml/min Social History Tobacco Use Types Packs/Day Years Used Date Never Smoker Smokeless Tobacco: Never Used Alcohol Use Drinks/Week oz/Week Comments No 0 Standard 0.0 drinks or equivalent Sex Assigned at Date Recorded Not on file as of this encounter Last Filed Vital Signs Vital Sign Reading Time Taken Blood Pressure 155/105 01/06/2018 11:20 AM CDT Pulse 85 01/06/2018 11:20 AM CDT Temperature - - Respiratory Rate - - Oxygen Saturation - - Inhaled Oxygen - - Concentration Weight 137 kg (302 lb) 01/06/2018 11:20 AM CDT Height 172.7 cm (5' 8") 01/06/2018 11:20 AM CDT Body Mass Index 45.92 01/06/2018 11:20 AM CDT in this encounter Functional Status Functional [...] as of this encounter Progress Notes * Savannha Mcnair MD - 01/06/2018 11:00 AM CDT Formatting of this note may be different from the original. Date of Service: 01/06/2018 Subjective: Amelie Quijano is a 22 y.o. female with LN. Mother present. History of Present Illness C/o severe left knee pain X 1 mo. Was given PT course by PMD. Worsened over past sev wks. Got MRI today after probs with insurance. No known trauma. No NSAID. Using tramadol and "tylenol cream" with little improvement. Swollen and warm last night. No hosp since I saw her in Aug 2017. Was dx'd with pneumonia by PMD November. Sxs incl fever, malaise, "sounding congested"; no cough. Pt had CXR but doesn't know results. Was treated with unknown antibx X few wks. Sxs resolved. Was told to hold MMF X 1 wk while acutely ill. 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 No immed plans to move to . Review of Systems Constitutional: Positive for activity change and appetite change. Negative for chills and fever. Decreased activity d/t knee pain. Pt reports decreased martha. HENT: Negative. Eyes: Negative. To see ophtho today Respiratory: Positive for shortness of breath. Negative for wheezing. MENDIOLA no change X many mo. Uses CPAP X 1-2 yrs Cardiovascular: Negative. Gastrointestinal: Positive for abdominal pain and nausea. Negative for constipation, diarrhea and vomiting. C/o heartburn X 3 days. Increased nausea this wk; going on X wks per mother. Endocrine: Negative. Genitourinary: Negative. Noct X 1; no change X yrs. LMP 12/30; normal. Musculoskeletal: Positive for arthralgias and joint swelling. Skin: Negative. Neurological: Negative. Hematological: Negative. Psychiatric/Behavioral: Positive for dysphoric mood. The patient is nervous/ anxious. Seeing therapist. Going well per pt. Taking CSA 25 bid Objective: acetaminophen SR(+) (TYLENOL) 650 mg tablet [...] by mouth three times weekly. Vitals: 01/06/18 1120 BP: (!) 155/105 Pulse: 85 Weight: (!) 137 kg (302 lb) Height: 172.7 cm (68") Body mass index is 45.92 kg/m. Physical Exam Constitutional: She appears well-developed and well-nourished. No distress. Obese HENT: Head: Normocephalic and atraumatic. Eyes: Conjunctivae are normal. Right eye exhibits no discharge. Left eye exhibits no discharge. No scleral icterus. Neck: Neck supple. No tracheal deviation present. Cardiovascular: Normal rate, regular rhythm and normal heart sounds. Exam reveals no gallop and no friction rub. No murmur heard. Pulmonary/Chest: Effort normal and breath sounds normal. No respiratory distress. She has no wheezes. She has no rales. Abdominal: Soft. Bowel sounds are normal. She exhibits no distension and no mass. There is no tenderness. There is no rebound and no guarding. Musculoskeletal: She exhibits tenderness. She exhibits no edema or deformity. Left knee very tend to light touch. Only very tr pretib edema Lymphadenopathy: She has no cervical adenopathy. Neurological: She is alert. She exhibits normal muscle tone. Coordination normal. Severe limp, unable to get on table Skin: Skin is warm and dry. No rash noted. She is not diaphoretic. No erythema. No pallor. Psychiatric: She has a normal mood and affect. Her behavior is normal. Judgment and thought content normal. Nursing note and vitals reviewed. Assessment and Plan: LN--Cr-1.4 today, higher than in recent past. Alb-3.3, about the same since Mar 2017. C3, C4 stable and normal, about same as Mar 2017. URSULA, dsDNA from today pending. Prot/cr-3.9 today, better than it has been since 2016. Prot/cr dipped 2016, but had been about 5-6 since then until today. She has been treated very aggressively with mult agents. On lisin 30 mg/d. Also on CSA, which may be helping proteinuria, but hesitate to increase Knee pain--to see rheum later today Anemia--Hg-11.7 today, stable. Suspect mult etiol, incl/natalie chronic inflammation. --repeat iron studies with next labs. 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 PTH much better today. Vit D pending--suspect it will be better --ergo weekly hypoNa--very mild. --follow Obesity--wt up 15 lbs c/w mid Apr. Pt enc to cont efforts at diet and exercise. RTC 1-2 mo Addendum--case d/w rheum Bradley at length. Does not appear to have lupus flare , sig new active disease. Will review med hx--may be able to nicole increasing MMF dose to 1500 bid. She is 14 mo past course of rituximab, so doesn't need Bactrim for this reason, and pred dose 5/d. PE and MRI of knee unrevealing per rheum. She has sent referral to sports med about rt knee, cont supportive care. --DC Bactrim --check chem-7 and VS in a wk to see if Cr and BP better --verify with pt dose of ACEI she is taking, change RTC 2-3 mo in this encounter Plan of Treatment Not on fileas of this encounter Results * ANTI-DNA DOUBLE STRAND (01/06/2018 2:44 PM) DNA Double Strand AB SEE TITER <10 TITER [facility]IN [facility] Specimen Blood Performing Organization Address [facility] Phone Number [facility] MAIN [facility] [address] [place] [address] * ANTI-NUCLEAR ANTIBODY(URSULA) (01/06/2018 2:44 PM) URSULA Screen SEE TITER <80 TITER [facility] Specimen Blood Performing Organization Address [facility] Phone Number [facility] [address] [place] [address] * C4 COMPLEMENT 4 (01/06/2018 2:44 PM) [facility] C[facility] 44.0 10 - 49 MG/DL [facility] MAIN [facility] Specimen Blood Performing Organization Address [facility] Phone Number [facility] MAIN LAB [address] [place] [address] * C3 COMPLEMENT 3 (01/06/2018 2:44 PM) [facility] C3 135.0 88 - 200 MG/DL [facility] MAIN [facility] Specimen Blood Performing Organization Address [facility] Phone Number [facility] MAIN LAB [address] [place] [address] * URIC ACID (01/06/2018 2:44 PM) Uric Acid 6.3 2.0 - 7.0 MG/DL [facility] Specimen Blood Performing Organization Address City/[facility]/Zipcode Phone Number [facility] [address] [place] [address] * PHOSPHORUS (01/06/2018 2:44 PM) Phosphorus 3.7 2.0 - 4.0 MG/DL [facility] Specimen Blood Performing Organization Address [facility] Phone Number [facility] [address] [place] [address] * PARATHYROID HORMONE (01/06/2018 2:44 PM) PTH Hormone 71.3 (H) 10 - 65 PG/ML [facility] Specimen Blood Performing Organization Address [facility] Phone Number [facility] [address] [place] [address] * COMPREHENSIVE METABOLIC PANEL (01/06/2018 2:44 PM) [...] for questions. Specimen Blood Performing Organization Address City/[facility]/Zipcode Phone Number MAIN LAB [address] [place] [address] * CBC AND DIFF (01/06/2018 2:44 PM) [...] MAIN LAB Specimen Blood Performing Organization Address City/[facility]/Zipcode Phone Number [facility] [address] [place] [address] * 25-OH VITAMIN D (D2 + D3) (01/06/2018 2:44 PM) Vitamin D(25-OH)Total 11.4 (L) 30 - 80 NG/ML [facility] Specimen Blood Performing Organization Address City/[facility]/Zipcode Phone Number MAIN LAB [address] [place] [address] * PROTEIN/CR RATIO,UR RAN (01/06/2018 12:36 PM) Protein, Random 527 MG/DL [facility] Creatinine, Random 135 MG/DL [facility] Protein/CR ratio 3.9 [facility] Specimen Urine - Urine Performing Organization Address [facility] Phone Number MAIN LAB [address] [place] [address] * POC URINE DIPSTICK AUTO READ (01/06/2018) Urine Glucose POC norm IN CLINIC Urine Bilirubin POC neg IN CLINIC Urine Ketone POC neg IN CLINIC Urine Specific [place] 1.015 IN CLINIC POC Urine Blood POC 50 IN CLINIC Urine PH POC 6 IN CLINIC Urine Protein POC 500 IN CLINIC Urine Urobilinogen POC norm IN CLINIC Urine Nitrite POC neg IN CLINIC Urine Leukocytes POC neg IN CLINIC Color,UA IN CLINIC Turbidity,UA IN CLINIC Specimen Urine Performing Organization Address [facility] Phone Number IN CLINIC in this encounter Visit Diagnoses Diagnosis Stage IV lupus nephritis (WHO) (HCC) - Primary Systemic lupus erythematosus 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
--- OUTSIDE RECORDS SUMMARY | 2018-01-20 11:18 | XMS REPORT | Encounter Summary ---
Author Author [facility] Organization [facility] Address Unknown Phone Unavailable Care Team Providers Care Fusion Operator Name Role Phone Savannah Mcnair MD Unavailable Ninfa Durham RN Unavailable Sol Lilly RN Unavailable Unavailable Kristina Mathews DO [id number] Kim Govea MD Unavailable Nancy Jarvis MD [...] Reason for Visit * Reason Comments Appointment Encounter Details Date Type Department Care Team Description 11/06/2017 Telephone [facility] Paradise Bradley MD Appointment Physicians-Rheumatology [address] [facility] [id number] [place] [address] [place] [address] [phone] Social History Tobacco Use Types Packs/Day Years [...] Telephone Encounter - Jessica Moore RN - 11/07/2017 3:06 PM CDT Per discussion with Dr. Bradely, called and advised patient she should be receiving a call from Rheumatology Admin regarding possible appointment 2017, will cancel 12/26/2017 appointment. Admin notified. * Telephone Encounter - Lyric Avina RN - 11/06/2017 12:50 PM CDT Pt called and lvm that she won't be able to make the 12/26 appt because her mom works and she doesn't feel comfortable driving herself. Pt asking if it would be possible to fit her in on 01/06 with her ophthalmology appt scheduled at 1345. in this encounter Plan of Treatment Not on fileas of this encounter Visit Diagnoses Not on filein this encounter
--- OUTSIDE RECORDS SUMMARY | 2018-01-20 11:18 | XMS REPORT | Encounter Summary ---
Author Author [facility] Organization [facility] Address Unknown Phone Unavailable Care Team Providers Care Cd Reactor Operator Head Name Role Phone Savannah Mcnair MD Unavailable Ninfa Durham RN Unavailable Sol Lilly RN Unavailable Unavailable Kristina Mathews DO [id number] Kim Govea MD Unavailable Nancy Jarvis MD PCP Isaiah Sloan MD Unavailable Dean Maldonado MD Unavailable Leandro Dejesus MD Unavailable Unavailable Eliot Dia RN Unavailable Unavailable Saeed Bosch DO Unavailable Unavailable Stanton Lopez RN Unavailable Unavailable Leandro Redd DO Unavailable Naresh Bradsahw MD Unavailable Rosie Negron MD Unavailable Paradise Bradley MD Unavailable Hung Upton RN Unavailable Unavailable Reason for Visit * Reason Comments Other Encounter Details Date Type Department Care Team Description 11/27/2017 Telephone [facility] Savannah Mcnair MD Other Physicians - Internal [address] [facility] Medicine [address] [place] [address] [phone] [address] [place] [address] Social History Tobacco Use Types [...] Telephone Encounter - Whit Suggs LPN - 12/01/2017 10:04 AM CDT Attempted to contact pt, LVM per authorization on file regarding ok to cont to hold cyclosporine until illness resolves. Encouraged pt to call if any questions or concerns. * Telephone Encounter - Whit Suggs LPN - 11/28/2017 10:11 AM CDT 1011: Discussed with Dr. Mcnair, [place] for pt to continue to hold cyclosporine until illness resolved. Attempted to contact pt, pt not taking calls at this time, unable to LVM. Will attempt to contact pt at a later time. 1129: Attempted to contact pt, phone still not accepting calls at this time and unable to LVM. Will attempt to contact at a later time. * Telephone Encounter - Whit Suggs LPN - 11/27/2017 4:09 PM CDT Rec'd call from pt, states she has been sick since last . Cold-like sxs , coughing, runny nose, chest tightness. She saw Sherley COLE at Dr. Jarvis office and was given a prednisone taper, steroid shot, breathing txt, antibiotic shot and had an X-ray today. Still waiting for results of this. Pt states she stopped taking her cyclosporine Friday just in case as Rheumatology would have her stop her immunosuppression sometimes. Notifying Dr. Mcnair to advise. in this encounter Plan of Treatment Not on fileas of this encounter Visit Diagnoses Not on filein this encounter
--- OUTSIDE RECORDS SUMMARY | 2018-01-20 11:18 | XMS REPORT | Encounter Summary ---
Author Author [facility] Organization [facility] Address Unknown Phone Unavailable Care Team Providers Care Emr Analyst Name Role Phone Savannah Mcnair MD Unavailable Ninfa Durham RN Unavailable Sol Lilly RN Unavailable Unavailable Kristina Mathews DO [id number] Kim Govea MD Unavailable Nancy Jarvis MD PCP Isaiah Sloan MD Unavailable Dean Maldonado MD Unavailable Leandro Dejesus MD Unavailable Unavailable Eliot Dia RN Unavailable Unavailable Saeed Bosch DO Unavailable Unavailable Stanton Lopez RN Unavailable Unavailable Leandro Redd DO Unavailable Naresh Bradshaw MD Unavailable Rosie Nergon MD Unavailable Paradise Bradley MD Unavailable Hung Upton RN Unavailable Unavailable Reason for Visit * Reason Comments Follow-up Phone Call Encounter Details Date Type Department Care Team Description 11/06/2017 Telephone [facility] Savannah Mcnair MD Follow -up Phone Call Physicians - Internal [address] [facility] Medicine [address] [place] [address] Pavilion Level 4C [phone] [address] [place] [address] Social History Tobacco Use Types [...] encounter Miscellaneous Notes * Telephone Encounter - SuggsWhit LPN - 11/06/2017 1:35 PM CDT Pt calling requesting to reschedule appt with Dr. Mcnair in November as her mom works that day. Spoke with pt and rescheduled for 01/06 @ 11AM, has appt with Opthamology later that day. Pt reports that she has been having eye issues, right eye was swollen and painful. This resolved and now this week her left eye was slightly swollen and looked red/inflamed. She saw DAVID Lepe at Dr. Jarvis office who prescribed her steroid and ABT eye drops with improvement in redness and swelling. Pt will continue to monitor and let PCP know if anything worsens. Pt had no further questions or concerns. in this encounter Plan of Treatment Not on fileas of this encounter Visit Diagnoses Not on filein this encounter
--- OUTSIDE RECORDS SUMMARY | 2018-01-20 11:18 | XMS REPORT | Encounter Summary ---
Author Author [facility] Organization [facility] Address Unknown Phone Unavailable Care Team Providers Care Director Food Safety Name Role Phone Savannah Mcnair MD Unavailable Ninfa Durham RN Unavailable Sol Lilly RN Unavailable Unavailable Kristina Mathews DO [id number] Kim Govea MD Unavailable Nancy Jarvis MD [...] Details Date Type Department Care Team Description 12/15/2017 Telephone [facility] Paradise Bradley MD General Question Physicians-Rheumatology [address] [facility] MD5413 [address] [place] [address] [place] [address] [phone] Social History Tobacco Use Types Packs/Day Years [...] Telephone Encounter - Ava Mueller RN - 12/15/2017 3:01 PM CDT Msg rec'd from patient inquiring about the time upcoming appointment. Also states that she has some friends that received the Yellow Fever vaccine and are now sick. Wanting to know if she can be around them or not due to taking Cellcept? Spoke with pt, advised her the appointment is 01/06 @ 1200. Also advised pt to take normal standard precautions that she would with any other individual that is ill and has a viral or bacterial infection; keep some distance if you can, wash hands frequently, make sure coughs are covered, don't she food/drinks etc. Pt v/u. in this encounter Plan of Treatment Not on fileas of this encounter Visit Diagnoses Not on filein this encounter
--- OUTSIDE RECORDS SUMMARY | 2018-01-20 11:18 | XMS REPORT | Encounter Summary ---
Author Author [facility] Organization [facility] Address Unknown Phone Unavailable Care Team Providers Care Snuff Grinder And Screener Name Role Phone Savannah Mcnair MD Unavailable Ninfa Durham RN Unavailable Sol Lilly RN Unavailable Unavailable Kristina Mathews DO [id number] Kim Govea MD Unavailable Nancy Jarvis MD PCP Isaiah Sloan MD Unavailable Dean Maldonado MD Unavailable Leandro Dejesus MD Unavailable Unavailable Eliot Dia RN Unavailable Unavailable Saeed Bosch DO Unavailable Unavailable Stanton Lopez RN Unavailable Unavailable Leandro Redd DO Unavailable Naresh Bradshaw MD Unavailable Rosie Negron MD Unavailable Paradise Bradley MD Unavailable Hung Upton RN Unavailable Unavailable Reason for Visit * Reason Comments Follow Up Sick/Antibiotics Encounter Details Date Type Department Care Team Description 11/27/2017 Telephone [facility] Paradise Bradley MD Follow Up Physicians-Rheumatology [address] [facility] (Sick/Antibiotics) [facility] [address] [place] [address] [place] [address] [phone] Social History Tobacco Use Types Packs/Day Years [...] Telephone Encounter - Ava Mueller RN - 11/27/2017 5:30 PM CDT Msg from pt, stating she has been sick. Cold symptoms including, coughing, "sinus stuff", chest tightness-couldn't breathe well. Pt reports seeing a doctor , getting steroid shot, and antibiotics. Also had an X-ray done which they will send to Dr. Bradley. Called pt back and left a detailed msg advising her to make sure to hold Cellcept while she is sick and taking antibiotic. When she is done with treatment and symptom free she may resume as prescribed. Routing to Dr. Bradley as FYI. in this encounter Plan of Treatment Not on fileas of this encounter Visit Diagnoses Not on filein this encounter
--- OUTSIDE RECORDS SUMMARY | 2018-01-20 11:23 | XMS REPORT | CCD ---
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 Name Role Phone PP Unavailable CCM Unavailable Summary Purpose Interface Exchange Insurance Providers Payer name Policy type / Coverage type Covered republican ID Effective Begin Date Effective End Date Blue Cross [facility] Blue Cross/Blue [facility] [id number] 2015 Unknown Family history Brother Diagnosis Age At Onset Asthma Unknown defect Unknown Mother Diagnosis Age At Onset Diabetes mellitus Type 2 Unknown Hypertension Unknown Depression Unknown Hyperlipidemia Unknown Social History Social History Element Codes Description Effective Dates Marital status Unknown Single 09/30/2016 Number of children Unknown 0 10/07/[address]: 173435530 Never smoker 10/07/[address]: 425708720 Never drinks alcohol 10/07/2014 Allergies, Adverse Reactions, Alerts Substance Reaction Codes Entered Date Inactivated Date Status * NO KNOWN FOOD ALLERGIES Unknown 10/07/2014 No Inactive Date Active * NO KNOWN DRUG ALLERGIES Unknown 10/07/2014 No Inactive Date Active Past Medical History Illness Codes Condition Status Onset Date Resolved Date Pain in left knee ICD- 9: 719.46 ICD-10: M25.562 Active 12/30/2017 Unknown Pneumonia due to other specified infectious organisms ICD-9: 483.8 ICD-10: J16.8 Active 11/27/2017 Unknown Cellulitis of right lower limb ICD-9: 682.6 ICD-10: L03.115 Active 11/17/2017 Unknown Other allergic rhinitis ICD-9: 477.8 ICD-10: J30.89 Active 04/01/2016 Unknown Other mucopurulent conjunctivitis, left eye ICD-9: 372.03 ICD-10: H10.022 Active 11/04/2017 Unknown Fever, unspecified ICD -9: 780.60 ICD-10: R50.9 Active 02/25/2017 Unknown 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 ICD-9: 710.0 ICD-10: M32.15 Active 02/25/2017 Unknown Systemic lupus erythematosus, organ or system involvement unspecified ICD-9: 710.0 ICD-10: M32.10 Active 03/04/2016 Unknown Acute suppurative otitis media without spontaneous rupture of ear drum, bilateral ICD-9: 382.00 ICD-10: H66.003 Active 03/21/2016 Unknown Hematuria, unspecified ICD-9: 599.70 ICD-10: R31.9 Active 03/27/2017 Unknown Other malaise ICD-9: 780.79 ICD-10: R53.81 Active 03/04/2017 Unknown Other fatigue ICD-9: 780.79 ICD-10: R53.83 Active 03/04/2017 Unknown Acute laryngopharyngitis ICD-9: 465.0 ICD-10: J06.0 Active 06/11/2015 Unknown Other acute sinusitis ICD-9: 461.8 ICD-10: J01.80 Active 03/21/2016 Unknown Dysuria ICD-9: 788.1 ICD-10: R30.0 Active 07/01/2016 Unknown Paresthesia of skin ICD-9: 782.0 ICD-10: R20.2 Active 07/01/2016 Unknown Acute upper respiratory infection, unspecified ICD-9: 465.9 ICD-10: J06.9 Active 10/21/2016 Unknown Cough ICD-9: 786.2 ICD-10: R05 Active 10/21/2016 Unknown Generalized anxiety disorder ICD-9: 300.00 ICD-10: F41.1 Active 09/30/2016 Unknown Migraine without aura, intractable, without status migrainosus ICD-9: 346.11 ICD-10: G43.019 Active 07/01/2016 Unknown Dysphagia, oropharyngeal phase ICD-9: 787.22 ICD-10: R13.12 Active 03/04/2016 Unknown Hypokalemia ICD-9: 276.8 ICD-10: E87.6 Active 03/04/2016 Unknown Rash and other nonspecific skin eruption ICD-9: 782.1 ICD-10: R21 Active 01/31/2016 Unknown Acute recurrent maxillary sinusitis ICD-9: 461.0 ICD-10: J01.01 Active 01/28/2016 Unknown Low back pain ICD-9: 724.2 ICD-10: M54.5 Active 12/10/2015 Unknown Urinary tract infection, site not specified ICD-9: 599.0 ICD-10: N39.0 Active 12/10/2015 Unknown Localized edema ICD-9 : 782.3 ICD-10: R60.0 Active 09/11/2015 Unknown Impacted cerumen, bilateral ICD-9: 380.4 ICD-10: H61.23 Active 08/27/2015 Unknown Impacted cerumen, right ear ICD-9: 389.8 ICD-10: H61.21 Active 08/10/2015 Unknown Other constipation ICD -9: 564.09 ICD-10: K59.09 Active 08/10/2015 Unknown Other hemorrhoids ICD- 9: 455.2 ICD-10: K64.8 Active 08/10/2015 Unknown Diffuse otitis externa, bilateral ICD-9: 380.10 ICD-10: H60.313 Active 07/30/2015 Unknown Pain in unspecified joint ICD-9: 719.49 ICD-10: M25.50 Active 01/19/2015 Unknown JOINT PAIN-MULT JOINTS ICD-9: 719.49 Active 01/19/2015 Unknown Systemic lupus erythematosus ICD-9: 710.0 Active 10/06/2014 Unknown Arthritis Unknown Active 10/07/2014 Unknown Hypertension Unknown Active 10/07/2014 Unknown Lupus Unknown Active 10/07/2014 Unknown Gastroesophageal reflux ICD-9: 530.81 Active 10/06/2014 Unknown Problems Condition Codes Effective Dates Condition Status Pain in left knee ICD- 9: 719.46 ICD-10: M25.562 12/30/2017 Active Pneumonia due to other specified infectious organisms ICD-9: 483.8 ICD-10: J16.8 11/27/2017 Active Cellulitis of right lower limb ICD-9: 682.6 ICD-10: L03.115 11/17/2017 Active Other allergic rhinitis ICD-9: 477.8 ICD-10: J30.89 04/01/2016 Active Other mucopurulent conjunctivitis, left eye ICD-9: 372.03 ICD-10: H10.022 11/04/2017 Active Fever, unspecified ICD -9: 780.60 ICD-10: R50.9 02/25/2017 Active 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 ICD-9: 710.0 ICD-10: M32.15 02/25/2017 Active Systemic lupus erythematosus, organ or system involvement unspecified ICD-9: 710.0 ICD-10: M32.10 03/04/2016 Active Acute suppurative otitis media without spontaneous rupture of ear drum, bilateral ICD-9: 382.00 ICD-10: H66.003 03/21/2016 Active Hematuria, unspecified ICD-9: 599.70 ICD-10: R31.9 03/27/2017 Active Other malaise ICD-9: 780.79 ICD-10: R53.81 03/04/2017 Active Other fatigue ICD-9: 780.79 ICD-10: R53.83 03/04/2017 Active Acute laryngopharyngitis ICD-9: 465.0 ICD-10: J06.0 06/11/2015 Active Other acute sinusitis ICD-9: 461.8 ICD-10: J01.80 03/21/2016 Active Dysuria ICD-9: 788.1 ICD-10: R30.0 07/01/2016 Active Paresthesia of skin ICD-9: 782.0 ICD-10: R20.2 07/01/2016 Active Acute upper respiratory infection, unspecified ICD-9: 465.9 ICD-10: J06.9 10/21/2016 Active Cough ICD-9: 786.2 ICD-10: R05 10/21/2016 Active Generalized anxiety disorder ICD-9: 300.00 ICD-10: F41.1 09/30/2016 Active Migraine without aura, intractable, without status migrainosus ICD-9: 346.11 ICD-10: G43.019 07/01/2016 Active Dysphagia, oropharyngeal phase ICD-9: 787.22 ICD-10: R13.12 03/04/2016 Active Hypokalemia ICD-9: 276.8 ICD-10: E87.6 03/04/2016 Active Rash and other nonspecific skin eruption ICD-9: 782.1 ICD-10: R21 01/31/2016 Active Acute recurrent maxillary sinusitis ICD-9: 461.0 ICD-10: J01.01 01/28/2016 Active Low back pain ICD-9: 724.2 ICD-10: M54.5 12/10/2015 Active Urinary tract infection, site not specified ICD-9: 599.0 ICD-10: N39.0 12/10/2015 Active Localized edema ICD-9 : 782.3 ICD-10: R60.0 09/11/2015 Active Impacted cerumen, bilateral ICD-9: 380.4 ICD-10: H61.23 08/27/2015 Active Impacted cerumen, right ear ICD-9: 389.8 ICD-10: H61.21 08/10/2015 Active Other constipation ICD -9: 564.09 ICD-10: K59.09 08/10/2015 Active Other hemorrhoids ICD- 9: 455.2 ICD-10: K64.8 08/10/2015 Active Diffuse otitis externa, bilateral ICD-9: 380.10 ICD-10: H60.313 07/30/2015 Active Pain in unspecified joint ICD-9: 719.49 ICD-10: M25.50 01/19/2015 Active JOINT PAIN-MULT JOINTS ICD-9: 719.49 01/19/2015 Active Systemic lupus erythematosus ICD-9: 710.0 10/06/2014 Active Arthritis Unknown 10/07/2014 Active Hypertension Unknown 10/07/2014 Active Lupus Unknown 10/07/2014 Active Gastroesophageal reflux ICD-9: 530.81 10/06/2014 Active Medications Medication Codes Instructions Start Date Stop Date Status Fill Instructions tramadol 50 mg tablet RxNorm: 620051 1 Tablet(s) PO BID as needed for pain 12/30/2017 01/03/2018 Active Voltaren 1 % topical gel RxNorm: 372729 1 Application TOP TID as needed 12/30/2017 No Stop Date Active Nexium 40 mg capsule,delayed release RxNorm: 398145 TAKE ONE CAPSULE BY MOUTH ONCE DAILY DIRECTED FOR STOMACH 12/09/2017 03/08/2018 Active prednisone 10 mg tablet RxNorm: 199172 Tablet(s) PO UD 2017 No Stop Date Active 60,60,50,50,40,40,30,30,20,20,10,10,5 every other day x 2 doses Zithromax Z-John 250 mg tablet RxNorm: 240744 1 Tablet(s) PO UD 11/27/2017 No Stop Date Active albuterol sulfate 2.5 mg/3 mL (0.083 %) solution for nebulization RxNorm: 791364 3 Milliliter(s) INH UD 11/27/2017 No Stop Date Active cefdinir 300 mg capsule RxNorm: 859681 1 Capsule(s) PO BID 12/06/2017 Inactive ceftriaxone 500 mg solution for injection RxNorm: 9932378 1 Milliliter(s) Inj 11/27/2017 11/27/2017 Inactive Kenalog 40 mg/mL suspension for injection RxNorm: 6864544 1 Milliliter(s) Inj 11/27/2017 11/27/2017 Inactive ceftriaxone 500 mg solution for injection RxNorm: 6477465 2 Inj 11/17/2017 11/17/2017 Inactive doxycycline hyclate 100 mg capsule RxNorm: 9287047 1 Capsule(s) PO BID 11/17/2017 11/26/2017 Inactive Flonase Allergy Relief 50 mcg/actuation nasal spray, suspension RxNorm: 8630443 1 Gurley NASAL BID as needed 11/04/2017 No Stop Date Active ciprofloxacin 0.3 % eye drops RxNorm: 999276 2 Drop(s) ophthalmic (eye) Q2H while awake x 2 days, then Q4H x 5 days 11/04/2017 No Stop Date Active Lyrica 100 mg capsule RxNorm: 484267 1 Capsule(s) PO TID and daily PRN 10/27/2017 01/24/2018 Active Keflex 500 mg capsule RxNorm: 075684 1 Capsule(s) PO TID 201710/09/2017 Inactive Keflex 500 mg capsule RxNorm: 466645 1 Capsule(s) PO TID 201710/02/2017 Inactive ceftriaxone 500 mg solution for injection RxNorm: 1170330 Inj 09/22/2017 09/22/2017 Inactive prednisone 10 mg tablet RxNorm: 804159 Tablet(s) PO 09/15/2017 No Stop Date Active 6, 6,5,5,4,4,3,3,2,2,1,1 then back to 5mg daily Kenalog 40 mg/mL suspension for injection RxNorm: 5625299 1.5 Milliliter(s) Inj 09/15/2017 09/15/2017 Inactive Lyrica 100 mg capsule RxNorm: 962820 1 Capsule(s) PO TID 201710/26/2017 Inactive Lyrica 100 mg capsule RxNorm: 568228 1 Capsule(s) PO TID 201709/21/2017 Inactive Lunesta 1 mg tablet RxNorm: 088410 1 Tablet(s) PO QHS 201706/14/2017 Inactive Lunesta 1 mg tablet RxNorm: 477576 1 Tablet(s) PO QHS 201705/15/2017 Inactive Zithromax Z-John 250 mg tablet RxNorm: 993626 1 Tablet(s) PO UD 04/23/2017 04/27/2017 Inactive Lyrica 100 mg capsule RxNorm: 802429 1 Capsule(s) PO TID 201606/23/2017 Inactive prednisone 20 mg tablet RxNorm: 369294 Tablet(s) PO 60mg x 3 days, then 40mg x 3 days, then 25mg x 3 days, then back to 13mg daily 02/25/2017 No Stop Date Active Levaquin 250 mg tablet RxNorm: 467949 1 Tablet(s) PO daily 03/01/2017 Inactive amoxicillin 500 mg capsule RxNorm: 104771 1 Capsule(s) PO TID 02/20/2017 02/20/2017 Inactive Kenalog 40 mg/mL suspension for injection RxNorm: 7913639 Milliliter(s) Inj 02/20/2017 02/20/2017 Inactive Augmentin 500 mg-125 mg tablet RxNorm: 801960 1 Tablet(s) PO TID 02/20/2017 02/20/2017 Inactive Xanax 0.25 mg tablet RxNorm: 045831 1 Tablet(s) PO TID as needed anxiety 02/05/2017 No Stop Date Active prednisone 5 mg tablet RxNorm: 407983 1 Tablet(s) PO daily to take with the 20mg pill to equal 25mg daily x 2 weeks. 02/04/2017 No Stop Date Active prednisone 20 mg tablet RxNorm: 913346 1 Tablet(s) PO daily to take with the 5mg to equal 25mg daily x 2 weeks. 02/04/2017 No Stop Date Active Kenalog 40 mg/mL suspension for injection RxNorm: 2394777 Milliliter(s) Inj 01/28/2017 01/28/2017 Inactive ceftriaxone 500 mg solution for injection RxNorm: 0709825 Inj 01/28/2017 01/28/2017 Inactive prednisone 20 mg tablet RxNorm: 900209 Tablet(s) PO 60mg x 3 days, then 40mg x 3 days 01/28/2017 02/24/2017 Inactive ceftriaxone 500 mg solution for injection RxNorm: 0165137 Inj 12/13/2016 12/13/2016 Inactive Kenalog 40 mg/mL suspension for injection RxNorm: 2744688 Milliliter(s) Inj 12/13/2016 12/13/2016 Inactive prednisone 20 mg tablet RxNorm: 703797 Tablet(s) PO 60mg x 3 days, then 40mg x 3 days 12/13/2016 01/27/2017 Inactive Zithromax Z-John 250 mg tablet RxNorm: 057656 1 Tablet(s) PO UD 10/21/2016 10/25/2016 Inactive fluoxetine 10 mg tablet RxNorm: 143052 1 Tablet(s) PO BID 09/3008/27/2017 Inactive Xanax 0.25 mg tablet RxNorm: 228699 1 Tablet(s) PO TID as needed anxiety 09/30/2016 02/04/2017 Inactive prednisone 20 mg tablet RxNorm: 182468 Tablet(s) PO 60mg x 1 week, then 40mg x 1 week, then back to 20mg 09/17/2016 No Stop Date Active Kenalog 40 mg/mL suspension for injection RxNorm: 5938988 Milliliter(s) Inj 09/17/2016 09/17/2016 Inactive amoxicillin 500 mg capsule RxNorm: 769287 1 Capsule(s) PO TID 07/15/2016 07/24/2016 Inactive Zithromax Z-John 250 mg tablet RxNorm: 056812 1 Tablet(s) PO UD 07/04/2016 10/20/2016 Inactive promethazine 25 mg/mL injection solution RxNorm: 712285 Milliliter(s) Inj 07/01/2016 07/01/2016 Inactive promethazine 25 mg tablet RxNorm: 596065 1 Tablet(s) PO TID as needed 07/01/2016 07/10/2016 Inactive Flonase Allergy Relief 50 mcg/actuation nasal spray, suspension RxNorm: 5555226 1 Gurley NASAL BID 06/05/2016 No Stop Date Active Zithromax Z-John 250 mg tablet RxNorm: 913350 Tablet(s) PO UD 07/03/2016 Inactive amoxicillin 500 mg capsule RxNorm: 997901 1 Capsule(s) PO TID 03/22/2016 04/04/2016 Inactive Kenalog 40 mg/mL suspension for injection RxNorm: 6691839 2 Milliliter(s) Inj 03/22/2016 03/22/2016 Inactive Diflucan 150 mg tablet RxNorm: 676095 1 Tablet(s) PO daily 03/09/2016 Inactive Diflucan 150 mg tablet RxNorm: 245237 1 Tablet(s) PO daily 03/04/2016 Inactive Keflex 500 mg capsule RxNorm: 267145 1 Capsule(s) PO TID 201502/04/2016 Inactive Keflex 500 mg capsule RxNorm: 276180 1 Capsule(s) PO TID 201512/17/2015 Inactive Augmentin 500 mg-125 mg tablet RxNorm: 832181 1 Tablet(s) PO TID 11/09/2015 11/18/2015 Inactive Anusol-HC 25 mg rectal suppository RxNorm: 3703456 1 Suppository RTL daily as needed pain 08/11/2015 No Stop Date Active Miralax 17 gram/dose oral powder RxNorm: 090592 1 taper PO 05/201512/08/2015 Inactive Ciprodex 0.3 %-0.1 % ear drops,suspension RxNorm: 351666 2 Drop(s) OTIC BID 07/31/2015 08/06/2015 Inactive amoxicillin 500 mg capsule RxNorm: 900762 1 Capsule(s) PO TID 07/31/2015 08/09/2015 Inactive Augmentin 500 mg-125 mg tablet RxNorm: 788041 1 Tablet(s) PO TID 07/07/2015 07/16/2015 Inactive Augmentin 500 mg-125 mg tablet RxNorm: 180721 1 Tablet(s) PO TID 07/07/2015 07/06/2015 Inactive Zithromax Z-John 250 mg tablet RxNorm: 794357 Tablet(s) PO UD 08/27/2015 Inactive Pennsaid 20 mg/gram/actuation (2 %) topical soln in metered -dose pump RxNorm: 6173868 2 Application TOP BID 01/20/201502/18 Inactive acetazolamide 250 mg tablet RxNorm: 385960 1 Tablet(s) PO BID 01/20/2015 02/18/2015 Inactive Pennsaid 20 mg/gram/actuation (2 %) topical soln in metered -dose pump RxNorm: 6264642 2 Application TOP BID 01/20/201501/19 Inactive cefuroxime axetil 500 mg tablet RxNorm: 790125 1 Tablet(s) PO BID 12/23/2014 12/22/2014 Inactive cefuroxime axetil 500 mg tablet RxNorm: 663724 1 Tablet(s) PO BID 12/23/2014 01/01/2015 Inactive trazodone 50 mg tablet RxNorm: 479279 1-2 Tablet(s) PO QHS 11/05/2014 Inactive mycophenolate mofetil 500 mg tablet RxNorm: 871426 2 Tablet(s) PO BID No Start Date Active Vitamin D2 50,000 unit capsule RxNorm: 887755 1 Capsule(s) PO QW No Start Date Active sucralfate 1 gram tablet RxNorm: 365206 1 Gram(s) PO QID No Start Date Active ferrous fumarate 325 mg (106 mg iron) tablet RxNorm: 350871 1 Tablet(s) PO daily No Start Date Active aspirin, buffered 81 mg tablet,delayed release RxNorm: 298661 1 Tablet(s) PO daily No Start Date Active potassium chloride ER 20 mEq tablet,extended release RxNorm: 081221 1 Tablet(s) PO BID No Start Date Active Calcium 500 + D (D3) oral RxNorm: 972231 oral No Start Date Active tramadol 50 mg tablet RxNorm: 018357 1 Tablet(s) PO BID as needed No Start Date Active prednisone 10 mg tablet RxNorm: 467767 1 Tablet(s) PO daily No Start Date Active hydroxychloroquine 200 mg tablet RxNorm: 693686 1 Tablet(s) PO BID No Start Date Active tacrolimus 1 mg capsule RxNorm: 871574 1 Capsule(s) PO daily No Start Date 06/23/2016 Inactive amitriptyline 25 mg tablet RxNorm: 165097 1 Tablet(s) PO daily No Start Date 06/11/2015 Inactive Lyrica 75 mg capsule RxNorm: 501000 1 Capsule(s) PO daily No Start Date 02/03/2017 Inactive celecoxib 100 mg capsule RxNorm: 261088 1 Capsule(s) PO daily No Start Date 01/19/2015 Inactive fluoxetine 10 mg tablet RxNorm: 091785 1 Tablet(s) PO daily No Start Date 09/29/2016 Inactive Lyrica 100 mg capsule RxNorm: 485199 1 Capsule(s) PO TID No Start Date 03/26/2017 Inactive Nexium 40 mg capsule,delayed release RxNorm: 234772 1 Capsule(s) PO daily Started by specialist No Start Date 12/08/2017 Inactive Medication Administered Medication Codes Instructions Start Date Status ceftriaxone 500 mg solution for injection RxNorm: 9905773 1Milliliter 11/27/2017 No longer Active Kenalog 40 mg/mL suspension for injection RxNorm: 3235362 1Milliliter 11/27/2017 No longer Active ceftriaxone 500 mg solution for injection RxNorm: 9851799 2 11/17/2017 No longer Active ceftriaxone 500 mg solution for injection RxNorm: 5622017 09/22/2017 No longer Active Kenalog 40 mg/mL suspension for injection RxNorm: 1358180 1.5Milliliter 09/15/2017 No longer Active Kenalog 40 mg/mL suspension for injection RxNorm: 5857012 Milliliter 02/20/2017 No longer Active Kenalog 40 mg/mL suspension for injection RxNorm: 1391575 Milliliter 01/28/2017 No longer Active ceftriaxone 500 mg solution for injection RxNorm: 8106257 01/28/2017 No longer Active Kenalog 40 mg/mL suspension for injection RxNorm: 8659262 Milliliter 12/13/2016 No longer Active ceftriaxone 500 mg solution for injection RxNorm: 7405647 12/13/2016 No longer Active Kenalog 40 mg/mL suspension for injection RxNorm: 4902122 Milliliter 09/17/2016 No longer Active promethazine 25 mg/mL injection solution RxNorm: 033342 Milliliter 07/01/2016 No longer Active Kenalog 40 mg/mL suspension for injection RxNorm: 5577364 2Milliliter 03/22/2016 No longer Active Immunizations Vaccine Codes Date Status Influenza CVX: 141 03/12/2013 completed Assessments Condition Codes Effective Dates Pain in left knee ICD-10: M25.562 ICD-9: 719.46 12/30/2017 Pneumonia due to other specified infectious organisms ICD-10 : J16.8 ICD-9: 483.8 11/27/2017 Cellulitis of right lower limb ICD-10: L03.115 ICD-9: 682.6 11/19/2017 Other mucopurulent conjunctivitis, left eye ICD-10: H10.022 ICD-9: 372.03 11/04/2017 Other allergic rhinitis ICD-10: J30.89 ICD-9: 477.8 11/04/2017 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 ICD-10: M32.15 ICD-9: 710.0 09/22/2017 Fever, unspecified ICD-10: R50.9 ICD-9: 780.60 09/22/2017 Acute suppurative otitis media without spontaneous rupture of ear drum, right ear ICD-10: H66.001 ICD-9: 382.00 04/23/2017 Other malaise ICD-10: R53.81 ICD-9: 780.79 03/27/2017 Hematuria, unspecified ICD-10: R31.9 ICD-9: 599.70 03/27/2017 Other fatigue ICD-10: R53.83 ICD-9: 780.79 03/04/2017 Systemic lupus erythematosus, organ or system involvement unspecified ICD-10: M32.10 ICD-9: 710.0 03/04/2017 Acute laryngopharyngitis ICD-10: J06.0 ICD-9: 465.0 02/20/2017 Other acute sinusitis ICD-10: J01.80 ICD-9: 461.8 02/20/2017 Dysuria ICD-10: R30.0 ICD-9: 788.1 01/28/2017 Paresthesia of skin ICD-10: R20.2 ICD-9: 782.0 01/28/2017 Acute upper respiratory infection, unspecified ICD-10: J06.9 ICD-9: 465.9 10/21/2016 Cough ICD-10: R05 ICD-9: 786.2 10/21/2016 Generalized anxiety disorder ICD-10: F41.1 ICD-9: 300.00 09/30/2016 Migraine without aura, intractable, without status migrainosus ICD-10: G43.019 ICD-9: 346.11 07/01/2016 Acute suppurative otitis media without spontaneous rupture of ear drum, bilateral ICD-10: H66.003 ICD-9: 382.00 03/22/2016 Dysphagia, oropharyngeal phase ICD-10: R13.12 ICD-9: 787.22 03/05/2016 Hypokalemia ICD-10: E87.6 ICD-9: 276.8 03/05/2016 Rash and other nonspecific skin eruption ICD-10: R21 ICD-9: 782.1 02/01/2016 Acute recurrent maxillary sinusitis ICD-10: J01.01 ICD-9: 461.0 01/29/2016 Low back pain ICD-10: M54.5 ICD-9: 724.2 12/11/2015 Urinary tract infection, site not specified ICD-10: N39.0 ICD-9: 599.0 12/11/2015 Localized edema ICD-10: R60.0 ICD-9: 782.3 09/12/2015 Impacted cerumen, bilateral ICD-10: H61.23 ICD-9: 380.4 08/28/2015 Other constipation ICD-10: K59.09 ICD-9: 564.09 08/11/2015 Other hemorrhoids ICD-10: K64.8 ICD-9: 455.2 08/11/2015 Impacted cerumen, right ear ICD-10: H61.21 ICD-9: 389.8 08/11/2015 Diffuse otitis externa, bilateral ICD-10: H60.313 ICD-9: 380.10 07/31/2015 Pain in unspecified joint ICD-10: M25.50 ICD-9: 719.49 06/12/2015 JOINT PAIN-MULT JOINTS ICD-9: 719.49 03/2015 Systemic lupus erythematosus ICD-9: 710.0 01/20/2015 Gastroesophageal reflux ICD-9: 530.81 Reason For Visit Reason For Visit Effective Dates Notes knee pain 12/30/2017 cough 11/27/2017 skin lesion 11/17/2017 eye discharge 11/04/2017 fever 09/22/2017 malaise 09/15/2017 sinus congestion 04/23/2017 abdominal pain 03/27/2017 malaise 03/04/2017 malaise 02/25/2017 sinus congestion 02/20/2017 pain 02/04/2017 skin pain 01/28/2017 skin rash 12/13/2016 sinus congestion 10/21/2016 anxiety 09/30/2016 rash 09/17/2016 cough 07/15/2016 sinus congestion 07/04/2016 headache 07/01/2016 sinus congestion 06/05/2016 earache 04/02/2016 sore throat 03/22/2016 dysphagia 03/05/2016 sinus congestion 01/29/2016 back pain 12/11/2015 sinus congestion 11/09/2015 edema 09/12/2015 earache 08/28/2015 hemorrhoids 08/11/2015 sinus congestion 07/31/2015 lower leg pain 06/12/2015 fatigue 01/20/2015 fatigue 10/07/2014 Results Observation Observation Code Item Item Code Result Date Urine Culture Ucult Preliminary NO Growth Day 1 09/24/2017 Urine Culture Ucult Complete NO Growth Day 2 09/24/2017 Urinalysis Ord28 U-Color Yellow 09/22/2017 Urinalysis Ord28 U-Clarity Slightly Cloudy 09/22/2017 Urinalysis Ord28 U-Gluc Negative 09/22/2017 Urinalysis Ord28 U-Bili Small 09/22/2017 Urinalysis Ord28 U-Ketone Trace 09/22/2017 Urinalysis Ord28 U-SG 1.025 09/22/2017 Urinalysis Ord28 U-Blood Moderate 09/22/2017 Urinalysis Ord28 U-pH 5.5 09/22/2017 Urinalysis Ord28 U-Protein >=300 mg/dL 09/22/2017 Urinalysis Ord28 U-Urobilin 0.2 E.U./dL E.U./dL 09/22/2017 Urinalysis Ord28 U-Nitrites Negative 09/22/2017 Urinalysis Ord28 U-Leuk Negative 09/22/2017 Urinalysis Ord28 U-Bact 1+ 09/22/2017 Urinalysis Ord28 U-Squamous Epi 5-10 per/HPF 09/22/2017 Urinalysis Ord28 U-Crystal None per/HPF 09/22/2017 Urinalysis Ord28 U-Mucus 1+ 09/22/2017 Urinalysis Ord28 U-Renal tubular epi None 09/22/2017 Urinalysis Ord28 U-RBC 5-10 per/HPF 09/22/2017 Urinalysis Ord28 U-Transitional epi 5-10 per/HPF 09/22/2017 Urinalysis Ord28 U-WBC 0-2 per/HPF 09/22/2017 Urinalysis Ord28 U-Cast None per/HPF 09/22/2017 Urinalysis Ord28 U-VOL VOLUME SUFFICIENT (10mL) 09/22/2017 Urinalysis Ord28 U-Yeast NEGATIVE 09/22/2017 Urinalysis Ord28 U-Com Culture to follow 09/22/2017 Random Urine Protein/Creatinine Ratio [id number] U Prot 719.0 mg/dl 09/22/2017 Random Urine Protein/Creatinine Ratio Irb3236 U CREAT 273.0 mg/dL 09/22/2017 Random Urine Protein/Creatinine Ratio [id number] R MTP/Creat Ratio 2.63 09/22/2017 Urine Culture Ucult Complete NO Growth Day 2 09/17/2017 Urine Culture Ucult Preliminary NO Growth Day 1 09/17/2017 Comp Metabolic Rzq151 NA 136 mEq/L 09/16/2017 Comp Metabolic Tgi639 K 4.3 mEq/L 09/16/2017 Comp Metabolic Eud467 CL 105 mEq/L 09/16/2017 Comp Metabolic Qvw999 CO2 23.0 mEq/L 09/16/2017 Comp Metabolic Dsv231 ANION GAP 12 09/16/2017 Comp Metabolic Eiu367 GLUCOSE 115 mg/dL 09/16/2017 Comp Metabolic Rcl009 Creat 1.1 mg/dL 09/16/2017 Comp Metabolic Nrv102 eGFR 68 ml/min/1.73m2 09/16/2017 Comp Metabolic Src071 BUN 9 mg/dL 09/16/2017 Comp Metabolic Gdu750 B/C Ratio 8.3 Ratio 09/16/2017 Comp Metabolic Ajh372 CALCIUM 8.9 mg/dL 09/16/2017 Comp Metabolic Auh869 ALK PHOS 65 U/L 09/16/2017 Comp Metabolic Xzt133 AST(SGOT) 15 U/L 09/16/2017 Comp Metabolic Mqw766 ALT(SGPT) 14 U/L 09/16/2017 Comp Metabolic Epr573 BILI T 0.4 mg/dL 09/16/2017 Comp Metabolic Rbr362 ALBUMIN 3.5 g/dL 09/16/2017 Comp Metabolic Evh578 TPRO 6.0 g/dL 09/16/2017 Comp Metabolic Yrt756 GLOB 2.5 g/dL 09/16/2017 Comp Metabolic Xdy658 A/G Ratio 1.4 Ratio 09/16/2017 Comp Metabolic Sql125 Osmo 272 mOsmo 09/16/2017 Random Urine Protein/Creatinine Ratio Ufq5089 U Prot 242.0 mg/dl 09/16/2017 Random Urine Protein/Creatinine Ratio Pth5275 U CREAT 79.0 mg/dL 09/16/2017 Random Urine Protein/Creatinine Ratio [id number] R MTP/Creat Ratio 3.06 09/16/2017 Urinalysis Ord28 U-Color Yellow 09/15/2017 Urinalysis Ord28 U-Clarity Clear 09/15/2017 Urinalysis Ord28 U-Gluc Negative 09/15/2017 Urinalysis Ord28 U-Bili Negative 09/15/2017 Urinalysis Ord28 U-Ketone Negative 09/15/2017 Urinalysis Ord28 U-SG 1.020 09/15/2017 Urinalysis Ord28 U-Blood Small 09/15/2017 Urinalysis Ord28 U-pH 6.5 09/15/2017 Urinalysis Ord28 U-Protein >=300 mg/dL 09/15/2017 Urinalysis Ord28 U-Urobilin 0.2 E.U./dL E.U./dL 09/15/2017 Urinalysis Ord28 U-Nitrites Negative 09/15/2017 Urinalysis Ord28 U-Leuk Negative 09/15/2017 Urinalysis Ord28 U-Bact 1+ 09/15/2017 Urinalysis Ord28 U-Squamous Epi 0-5 per/HPF 09/15/2017 Urinalysis Ord28 U-Crystal None per/HPF 09/15/2017 Urinalysis Ord28 U-Mucus None 09/15/2017 Urinalysis Ord28 U-Renal tubular epi None 09/15/2017 Urinalysis Ord28 U-RBC 3-5 per/HPF 09/15/2017 Urinalysis Ord28 U-Transitional epi RARE per/HPF 09/15/2017 Urinalysis Ord28 U-WBC RARE per/HPF 09/15/2017 Urinalysis Ord28 U-Cast HYALINE CAST per/HPF 09/15/2017 Urinalysis Ord28 U-VOL VOLUME SUFFICIENT (10mL) 09/15/2017 Urinalysis Ord28 U-Com Urine saved if culture needed (specimen acceptable for 48 hours from collection if refrigerated) 09/15/2017 Urinalysis Ord28 U-Yeast NEGATIVE 09/15/2017 Cbc With Differential Ord2 WBC 7.35 K/ul 09/15/2017 Cbc With Differential Ord2 RBC 4.97 M/ul 09/15/2017 Cbc With Differential Ord2 HGB 12.3 g/dl 09/15/2017 Cbc With Differential Ord2 Neut% 59.4 % 09/15/2017 Cbc With Differential Ord2 HCT 38.3 % 09/15/2017 Cbc With Differential Ord2 MCV 77.1 fl 09/15/2017 Cbc With Differential Ord2 Lymph% 27.2 % 09/15/2017 Cbc With Differential Ord2 Payne% 11.3 % 09/15/2017 Cbc With Differential Ord2 MCH 24.7 pg 09/15/2017 Cbc With Differential Ord2 MCHC 32.1 pg 09/15/2017 Cbc With Differential Ord2 Eos% 1.6 % 09/15/2017 Cbc With Differential Ord2 Baso% 0.5 % 09/15/2017 Cbc With Differential Ord2 PLT 334 K/ul 09/15/2017 Cbc With Differential Ord2 Neut ABS# 4.36 K/ul 09/15/2017 Cbc With Differential Ord2 RDW 17.7 % 09/15/2017 Cbc With Differential Ord2 Lymph ABS# 2.00 K/ul 09/15/2017 Cbc With Differential Ord2 Payne ABS# 0.8 K/ul 09/15/2017 Cbc With Differential Ord2 Eos ABS# 0.1 K/ul 09/15/2017 Cbc With Differential Ord2 Baso ABS# 0.0 K/ul 09/15/2017 Comp Metabolic Snc927 NA 142 mEq/L 04/23/2017 Comp Metabolic Jmp528 K 3.6 mEq/L 04/23/2017 Comp Metabolic Grj988 CL 108 mEq/L 04/23/2017 Comp Metabolic Phi813 CO2 23.0 mEq/L 04/23/2017 Comp Metabolic Lsl799 ANION GAP 15 04/23/2017 Comp Metabolic Maz711 GLUCOSE 93 mg/dL 04/23/2017 Comp Metabolic Nrq623 Creat 0.9 mg/dL 04/23/2017 Comp Metabolic Iif152 eGFR 82 ml/min/1.73m2 04/23/2017 Comp Metabolic Kwo138 BUN 10 mg/dL 04/23/2017 Comp Metabolic Kha050 B/C Ratio 10.9 Ratio 04/23/2017 Comp Metabolic Vqo805 CALCIUM 8.5 mg/dL 04/23/2017 Comp Metabolic Uqo376 ALK PHOS 51 U/L 04/23/2017 Comp Metabolic Dgn829 AST(SGOT) 17 U/L 04/23/2017 Comp Metabolic Phq925 ALT(SGPT) 15 U/L 04/23/2017 Comp Metabolic Fct372 BILI T 0.2 mg/dL 04/23/2017 Comp Metabolic Ggw985 ALBUMIN 3.3 g/dL 04/23/2017 Comp Metabolic Dst063 TPRO 5.7 g/dL 04/23/2017 Comp Metabolic Lyx521 GLOB 2.4 g/dL 04/23/2017 Comp Metabolic Aca782 A/G Ratio 1.4 Ratio 04/23/2017 Comp Metabolic Cgj028 Osmo 282 mOsmo 04/23/2017 Cbc With Differential Ord2 WBC 6.58 K/ul 04/23/2017 Cbc With Differential Ord2 RBC 4.75 M/ul 04/23/2017 Cbc With Differential Ord2 HGB 11.9 g/dl 04/23/2017 Cbc With Differential Ord2 HCT 37.5 % 04/23/2017 Cbc With Differential Ord2 Neut% 58.5 % 04/23/2017 Cbc With Differential Ord2 MCV 78.9 fl 04/23/2017 Cbc With Differential Ord2 Lymph% 28.9 % 04/23/2017 Cbc With Differential Ord2 Payne% 9.7 % 04/23/2017 Cbc With Differential Ord2 MCH 25.1 pg 04/23/2017 Cbc With Differential Ord2 Eos% 2.6 % 04/23/2017 Cbc With Differential Ord2 MCHC 31.7 pg 04/23/2017 Cbc With Differential Ord2 PLT 247 K/ul 04/23/2017 Cbc With Differential Ord2 Baso% 0.3 % 04/23/2017 Cbc With Differential Ord2 RDW 16.7 % 04/23/2017 Cbc With Differential Ord2 Neut ABS# 3.85 K/ul 04/23/2017 Cbc With Differential Ord2 Lymph ABS# 1.90 K/ul 04/23/2017 Cbc With Differential Ord2 Payne ABS# 0.6 K/ul 04/23/2017 Cbc With Differential Ord2 Eos ABS# 0.2 K/ul 04/23/2017 Cbc With Differential Ord2 Baso ABS# 0.0 K/ul 04/23/2017 Urine Culture Ucult Preliminary NO Growth Day 1 03/31/2017 Urine Culture Ucult Complete NO Growth Day 2 03/31/2017 Random Urine Protein/Creatinine Ratio [id number] U Prot 427.0 mg/dl 03/28/2017 Random Urine Protein/Creatinine Ratio [id number] U CREAT 99.0 mg/dL 03/28/2017 Random Urine Protein/Creatinine Ratio Atv8176 R MTP/Creat Ratio 4.31 03/28/2017 Comp Metabolic Lrv389 NA 141 mEq/L 02/04/2017 Comp Metabolic Vhz044 K 4.7 mEq/L 02/04/2017 Comp Metabolic Ydg274 CL 108 mEq/L 02/04/2017 Comp Metabolic Twh869 CO2 25.0 mEq/L 02/04/2017 Comp Metabolic Agk070 ANION GAP 13 02/04/2017 Comp Metabolic Zhx877 GLUCOSE 119 mg/dL 02/04/2017 Comp Metabolic Phe603 Creat 1.1 mg/dL 02/04/2017 Comp Metabolic And513 eGFR 66 ml/min/1.73m2 02/04/2017 Comp Metabolic Coq159 BUN 23 mg/dL 02/04/2017 Comp Metabolic Qvl729 B/C Ratio 20.7 Ratio 02/04/2017 Comp Metabolic Mzf144 CALCIUM 9.3 mg/dL 02/04/2017 Comp Metabolic Vwa158 ALK PHOS 66 U/L 02/04/2017 Comp Metabolic Ink507 AST(SGOT) 11 U/L 02/04/2017 Comp Metabolic Xkr903 ALT(SGPT) 12 U/L 02/04/2017 Comp Metabolic Abl840 BILI T 0.2 mg/dL 02/04/2017 Comp Metabolic Ypc361 ALBUMIN 3.7 g/dL 02/04/2017 Comp Metabolic Ilv991 TPRO 6.0 g/dL 02/04/2017 Comp Metabolic Goy592 GLOB 2.3 g/dL 02/04/2017 Comp Metabolic Kau750 A/G Ratio 1.6 Ratio 02/04/2017 Comp Metabolic Noy798 Osmo 286 mOsmo 02/04/2017 Urinalysis U-Color Yellow 02/04/2017 Urinalysis U-Clarity Clear 02/04/2017 Urinalysis U-Gluc Negative 02/04/2017 Urinalysis U-Bili Negative 02/04/2017 Urinalysis U-Ketone Negative 02/04/2017 Urinalysis U-SG 1.025 02/04/2017 Urinalysis U-Blood Moderate 02/04/2017 Urinalysis U-pH 5.5 02/04/2017 Urinalysis U-Protein >=300 mg/dL 02/04/2017 Urinalysis U-Urobilin 0.2 E.U./dL E.U./dL 02/04/2017 Urinalysis U-Nitrites Negative 02/04/2017 Urinalysis U-Leuk Negative 02/04/2017 Urinalysis U-Bact None 02/04/2017 Urinalysis U-Squamous Epi None per/HPF 02/04/2017 Urinalysis U-Crystal None per/HPF 02/04/2017 Urinalysis U-Mucus None 02/04/2017 Urinalysis U-Renal tubular epi None 02/04/2017 Urinalysis U-RBC 0-2 per/HPF 02/04/2017 Urinalysis U-Transitional epi RARE per/HPF 02/04/2017 Urinalysis U-WBC RARE per/HPF 02/04/2017 Urinalysis U-Cast None per/HPF 02/04/2017 Urinalysis U-VOL VOLUME SUFFICIENT (10mL) 02/04/2017 Urinalysis U-Com Urine saved if culture needed (specimen acceptable for 48 hours from collection if refrigerated) 02/04/2017 Urinalysis U-Yeast NEGATIVE 02/04/2017 Random Urine Protein/Creatinine Ratio U Prot 181.0 mg/dl 02/04 Random Urine Protein/Creatinine Ratio U CREAT 73.0 mg/dL 02/04 Random Urine Protein/Creatinine Ratio R MTP/Creat Ratio 2.48 02/04/2017 Cbc With Differential Ord2 WBC 14.37 K/ul 02/04/2017 Cbc With Differential Ord2 RBC 4.57 M/ul 02/04/2017 Cbc With Differential Ord2 HGB 11.5 g/dl 02/04/2017 Cbc With Differential Ord2 HCT 35.2 % 02/04/2017 Cbc With Differential Ord2 Neut% 81.7 % 02/04/2017 Cbc With Differential Ord2 Lymph% 13.4 % 02/04/2017 Cbc With Differential Ord2 MCV 77.0 fl 02/04/2017 Cbc With Differential Ord2 MCH 25.2 pg 02/04/2017 Cbc With Differential Ord2 Payne% 4.7 % 02/04/2017 Cbc With Differential Ord2 MCHC 32.7 pg 02/04/2017 Cbc With Differential Ord2 Eos% 0.1 % 02/04/2017 Cbc With Differential Ord2 Baso% 0.1 % 02/04/2017 Cbc With Differential Ord2 PLT 335 K/ul 02/04/2017 Cbc With Differential Ord2 RDW 17.4 % 02/04/2017 Cbc With Differential Ord2 Neut ABS# 11.75 K/ul 02/04/2017 Cbc With Differential Ord2 Lymph ABS# 1.92 K/ul 02/04/2017 Cbc With Differential Ord2 Payne ABS# 0.7 K/ul 02/04/2017 Cbc With Differential Ord2 Eos ABS# 0.0 K/ul 02/04/2017 Cbc With Differential Ord2 Baso ABS# 0.0 K/ul 02/04/2017 Culture Urine [id number] URINE CULTURE SEE NOTES 02/03/2017 Urine Culture Ucult Complete >100,000 col/ml aerobic growth sent to ref lab 01/31/2017 Comp Metabolic Xqn496 NA 135 mEq/L 01/30/2017 Comp Metabolic Qkk861 K 4.8 mEq/L 01/30/2017 Comp Metabolic Tat449 CL 104 mEq/L 01/30/2017 Comp Metabolic Dku358 CO2 22.0 mEq/L 01/30/2017 Comp Metabolic Urg560 ANION GAP 14 01/30/2017 Comp Metabolic Ggw924 GLUCOSE 107 mg/dL 01/30/2017 Comp Metabolic Key338 Creat 1.4 mg/dL 01/30/2017 Comp Metabolic Omq545 eGFR 51 ml/min/1.73m2 01/30/2017 Comp Metabolic Tpc143 BUN 24 mg/dL 01/30/2017 Comp Metabolic Lvi410 B/C Ratio 17.3 Ratio 01/30/2017 Comp Metabolic Huh249 CALCIUM 8.7 mg/dL 01/30/2017 Comp Metabolic Jvd702 ALK PHOS 54 U/L 01/30/2017 Comp Metabolic Pro280 AST(SGOT) 14 U/L 01/30/2017 Comp Metabolic Qqp531 ALT(SGPT) 15 U/L 01/30/2017 Comp Metabolic Msi641 BILI T 0.2 mg/dL 01/30/2017 Comp Metabolic Afm622 ALBUMIN 3.6 g/dL 01/30/2017 Comp Metabolic Cgj245 TPRO 6.1 g/dL 01/30/2017 Comp Metabolic Mwm546 GLOB 2.5 g/dL 01/30/2017 Comp Metabolic Khe588 A/G Ratio 1.5 Ratio 01/30/2017 Comp Metabolic Nui435 Osmo 275 mOsmo 01/30/2017 Random Urine Protein/Creatinine Ratio Zei5312 U Prot 115.0 mg/dl 01/30/2017 Random Urine Protein/Creatinine Ratio Rju9253 U CREAT 135.0 mg/dL 01/30/2017 Random Urine Protein/Creatinine Ratio Srm5541 R MTP/Creat Ratio 0.85 01/30/2017 Urinalysis Ord28 U-Color Yellow 01/30/2017 Urinalysis Ord28 U-Clarity Clear 01/30/2017 Urinalysis Ord28 U-Gluc Negative 01/30/2017 Urinalysis Ord28 U-Bili Negative 01/30/2017 Urinalysis Ord28 U-Ketone Negative 01/30/2017 Urinalysis Ord28 U-SG 1.025 01/30/2017 Urinalysis Ord28 U-Blood Moderate 01/30/2017 Urinalysis Ord28 U-pH 5.0 01/30/2017 Urinalysis Ord28 U-Protein 100 mg/dL 01/30/2017 Urinalysis Ord28 U-Urobilin 0.2 E.U./dL E.U./dL 01/30/2017 Urinalysis Ord28 U-Nitrites Negative 01/30/2017 Urinalysis Ord28 U-Leuk Negative 01/30/2017 Urinalysis Ord28 U-Bact None 01/30/2017 Urinalysis Ord28 U-Squamous Epi None per/HPF 01/30/2017 Urinalysis Ord28 U-Crystal None per/HPF 01/30/2017 Urinalysis Ord28 U-Mucus None 01/30/2017 Urinalysis Ord28 U-Renal tubular epi None 01/30/2017 Urinalysis Ord28 U-RBC RARE per/HPF 01/30/2017 Urinalysis Ord28 U-Transitional epi None per/HPF 01/30/2017 Urinalysis Ord28 U-WBC 3-5 per/HPF 01/30/2017 Urinalysis Ord28 U-Cast None per/HPF 01/30/2017 Urinalysis Ord28 U-VOL VOLUME SUFFICIENT (10mL) 01/30/2017 Urinalysis Ord28 U-Yeast NEGATIVE 01/30/2017 Urinalysis Ord28 U-Com Culture to follow 01/30/2017 Comp Metabolic Axb227 NA 138 mEq/L 01/29/2017 Comp Metabolic Xnr509 K 4.6 mEq/L 01/29/2017 Comp Metabolic Bkm400 CL 107 mEq/L 01/29/2017 Comp Metabolic Tjo889 CO2 21.0 mEq/L 01/29/2017 Comp Metabolic Cga793 ANION GAP 15 01/29/2017 Comp Metabolic Dwj942 GLUCOSE 91 mg/dL 01/29/2017 Comp Metabolic Iee347 Creat 1.8 mg/dL 01/29/2017 Comp Metabolic Cii171 eGFR 38 ml/min/1.73m2 01/29/2017 Comp Metabolic Reo503 BUN 26 mg/dL 01/29/2017 Comp Metabolic Qoc606 B/C Ratio 14.6 Ratio 01/29/2017 Comp Metabolic Bjf819 CALCIUM 8.8 mg/dL 01/29/2017 Comp Metabolic Vqy539 ALK PHOS 58 U/L 01/29/2017 Comp Metabolic Kxz295 AST(SGOT) 14 U/L 01/29/2017 Comp Metabolic Kgb048 ALT(SGPT) 14 U/L 01/29/2017 Comp Metabolic Eeb548 BILI T 0.2 mg/dL 01/29/2017 Comp Metabolic Ysp644 ALBUMIN 3.4 g/dL 01/29/2017 Comp Metabolic Lfy947 TPRO 5.6 g/dL 01/29/2017 Comp Metabolic Mhq754 GLOB 2.2 g/dL 01/29/2017 Comp Metabolic Uys525 A/G Ratio 1.6 Ratio 01/29/2017 Comp Metabolic Zob512 Osmo 280 mOsmo 01/29/2017 Cbc With Differential Ord2 WBC 7.36 K/ul 01/28/2017 Cbc With Differential Ord2 RBC 4.51 M/ul 01/28/2017 Cbc With Differential Ord2 HGB 11.3 g/dl 01/28/2017 Cbc With Differential Ord2 Neut% 55.9 % 01/28/2017 Cbc With Differential Ord2 HCT 35.4 % 01/28/2017 Cbc With Differential Ord2 Lymph% 33.4 % 01/28/2017 Cbc With Differential Ord2 MCV 78.5 fl 01/28/2017 Cbc With Differential Ord2 Payne% 9.6 % 01/28/2017 Cbc With Differential Ord2 MCH 25.1 pg 01/28/2017 Cbc With Differential Ord2 MCHC 31.9 pg 01/28/2017 Cbc With Differential Ord2 Eos% 0.8 % 01/28/2017 Cbc With Differential Ord2 Baso% 0.3 % 01/28/2017 Cbc With Differential Ord2 PLT 315 K/ul 01/28/2017 Cbc With Differential Ord2 RDW 17.6 % 01/28/2017 Cbc With Differential Ord2 Neut ABS# 4.11 K/ul 01/28/2017 Cbc With Differential Ord2 Lymph ABS# 2.46 K/ul 01/28/2017 Cbc With Differential Ord2 Payne ABS# 0.7 K/ul 01/28/2017 Cbc With Differential Ord2 Eos ABS# 0.1 K/ul 01/28/2017 Cbc With Differential Ord2 Baso ABS# 0.0 K/ul 01/28/2017 Urine Culture Ucult Preliminary NO Growth Day 1 09/19/2016 Urine Culture Ucult Complete NO Growth Day 2 09/19/2016 Comp Metabolic Ero024 NA 140 mEq/L 09/17/2016 Comp Metabolic Fal716 K 3.8 mEq/L 09/17/2016 Comp Metabolic Bjd574 CL 110 mEq/L 09/17/2016 Comp Metabolic Ixz380 CO2 20.0 mEq/L 09/17/2016 Comp Metabolic Elt829 ANION GAP 14 09/17/2016 Comp Metabolic Jvp025 GLUCOSE 88 mg/dL 09/17/2016 Comp Metabolic Utz142 Creat 1.3 mg/dL 09/17/2016 Comp Metabolic Jtx136 eGFR 54 ml/min/1.73m2 09/17/2016 Comp Metabolic Bte183 BUN 14 mg/dL 09/17/2016 Comp Metabolic Etu977 B/C Ratio 10.6 Ratio 09/17/2016 Comp Metabolic Klu879 CALCIUM 8.1 mg/dL 09/17/2016 Comp Metabolic Zio389 ALK PHOS 59 U/L 09/17/2016 Comp Metabolic Kxe667 AST(SGOT) 19 U/L 09/17/2016 Comp Metabolic Ayp671 ALT(SGPT) 18 U/L 09/17/2016 Comp Metabolic Blb553 BILI T 0.3 mg/dL 09/17/2016 Comp Metabolic Rcn384 ALBUMIN 3.0 g/dL 09/17/2016 Comp Metabolic Hta847 TPRO 5.1 g/dL 09/17/2016 Comp Metabolic Wbr165 GLOB 2.1 g/dL 09/17/2016 Comp Metabolic Rnr444 A/G Ratio 1.4 Ratio 09/17/2016 Comp Metabolic Rlb202 Osmo 279 mOsmo 09/17/2016 Hgb & Hct Ord65 HGB 10.3 g/dl 09/17/2016 Hgb & Hct Ord65 HCT 32.2 % 09/17/2016 C RAP A SC [id number] Strep A Negative 07/15/2016 Urine Culture Ucult Preliminary NO Growth Day 1 07/04/2016 Urine Culture Ucult Complete NO Growth Day 2 07/04/2016 Cbc With Differential Ord2 WBC 5.46 K/ul 03/22/2016 Cbc With Differential Ord2 RBC 3.68 M/ul 03/22/2016 Cbc With Differential Ord2 HGB 10.6 g/dl 03/22/2016 Cbc With Differential Ord2 HCT 32.5 % 03/22/2016 Cbc With Differential Ord2 Neut% 54.8 % 03/22/2016 Cbc With Differential Ord2 Lymph% 32.4 % 03/22/2016 Cbc With Differential Ord2 MCV 88.3 fl 03/22/2016 Cbc With Differential Ord2 Payne% 11.7 % 03/22/2016 Cbc With Differential Ord2 MCH 28.8 pg 03/22/2016 Cbc With Differential Ord2 Eos% 0.4 % 03/22/2016 Cbc With Differential Ord2 MCHC 32.6 pg 03/22/2016 Cbc With Differential Ord2 PLT 180 K/ul 03/22/2016 Cbc With Differential Ord2 Baso% 0.7 % 03/22/2016 Cbc With Differential Ord2 RDW 16.1 % 03/22/2016 Cbc With Differential Ord2 Neut ABS# 2.99 K/ul 03/22/2016 Cbc With Differential Ord2 Lymph ABS# 1.77 K/ul 03/22/2016 Cbc With Differential Ord2 Payne ABS# 0.6 K/ul 03/22/2016 Cbc With Differential Ord2 Eos ABS# 0.0 K/ul 03/22/2016 Cbc With Differential Ord2 Baso ABS# 0.0 K/ul 03/22/2016 Comp Metabolic Rap271 NA 131 mEq/L 03/22/2016 Comp Metabolic Nls674 K 4.1 mEq/L 03/22/2016 Comp Metabolic Zsr883 CL 106 mEq/L 03/22/2016 Comp Metabolic Sqm531 CO2 18.0 mEq/L 03/22/2016 Comp Metabolic Jlf558 ANION GAP 11 03/22/2016 Comp Metabolic Yrm060 GLUCOSE 84 mg/dL 03/22/2016 Comp Metabolic Iar999 Creat 1.6 mg/dL 03/22/2016 Comp Metabolic Vsw357 eGFR 44 ml/min/1.73m2 03/22/2016 Comp Metabolic Oxy363 BUN 14 mg/dL 03/22/2016 Comp Metabolic Vhp467 B/C Ratio 8.9 Ratio 03/22/2016 Comp Metabolic Xoy518 CALCIUM 8.2 mg/dL 03/22/2016 Comp Metabolic Ucp408 ALK PHOS 39 U/L 03/22/2016 Comp Metabolic Rep473 AST(SGOT) 16 U/L 03/22/2016 Comp Metabolic Ugs497 ALT(SGPT) 15 U/L 03/22/2016 Comp Metabolic Hrd118 BILI T 0.3 mg/dL 03/22/2016 Comp Metabolic Kdp307 ALBUMIN 2.6 g/dL 03/22/2016 Comp Metabolic Ntt759 TPRO 4.5 g/dL 03/22/2016 Comp Metabolic Mno322 GLOB 1.9 g/dL 03/22/2016 Comp Metabolic Dct202 A/G Ratio 1.3 Ratio 03/22/2016 Comp Metabolic Zys192 Osmo 262 mOsmo 03/22/2016 Magnesium Ord90 Mag 2.1 mg/dL 03/05/2016 Sed Rate Ord21 ESR 50 mm/hr 03/05/2016 C-Reactive Protein Qnt Crqnt CRP 0.1 mg/dl 03/05/2016 Cbc With Differential Ord2 WBC 4.41 K/ul 03/05/2016 Cbc With Differential Ord2 RBC 3.18 M/ul 03/05/2016 Cbc With Differential Ord2 HGB 9.2 g/dl 03/05/2016 Cbc With Differential Ord2 HCT 28.9 % 03/05/2016 Cbc With Differential Ord2 Neut% 58.4 % 03/05/2016 Cbc With Differential Ord2 MCV 90.9 fl 03/05/2016 Cbc With Differential Ord2 Lymph% 30.2 % 03/05/2016 Cbc With Differential Ord2 Payne% 10.0 % 03/05/2016 Cbc With Differential Ord2 MCH 28.9 pg 03/05/2016 Cbc With Differential Ord2 Eos% 0.5 % 03/05/2016 Cbc With Differential Ord2 MCHC 31.8 pg 03/05/2016 Cbc With Differential Ord2 Baso% 0.9 % 03/05/2016 Cbc With Differential Ord2 PLT 237 K/ul 03/05/2016 Cbc With Differential Ord2 Neut ABS# 2.58 K/ul 03/05/2016 Cbc With Differential Ord2 RDW 16.3 % 03/05/2016 Cbc With Differential Ord2 Lymph ABS# 1.33 K/ul 03/05/2016 Cbc With Differential Ord2 Payne ABS# 0.4 K/ul 03/05/2016 Cbc With Differential Ord2 Eos ABS# 0.0 K/ul 03/05/2016 Cbc With Differential Ord2 Baso ABS# 0.0 K/ul 03/05/2016 Comp Metabolic Fqe467 NA 138 mEq/L 03/05/2016 Comp Metabolic Gco872 K 3.9 mEq/L 03/05/2016 Comp Metabolic Luf238 CL 105 mEq/L 03/05/2016 Comp Metabolic Cby586 CO2 27.0 mEq/L 03/05/2016 Comp Metabolic Kcf466 ANION GAP 10 03/05/2016 Comp Metabolic Azv821 GLUCOSE 95 mg/dL 03/05/2016 Comp Metabolic Rtv290 Creat 1.4 mg/dL 03/05/2016 Comp Metabolic Hjp311 eGFR 53 ml/min/1.73m2 03/05/2016 Comp Metabolic Yts638 BUN 20 mg/dL 03/05/2016 Comp Metabolic Rqq972 B/C Ratio 14.7 Ratio 03/05/2016 Comp Metabolic Vae551 CALCIUM 7.9 mg/dL 03/05/2016 Comp Metabolic Gxc583 ALK PHOS 43 U/L 03/05/2016 Comp Metabolic Oue927 AST(SGOT) 14 U/L 03/05/2016 Comp Metabolic Ssv504 ALT(SGPT) 15 U/L 03/05/2016 Comp Metabolic Ipe461 BILI T 0.2 mg/dL 03/05/2016 Comp Metabolic Ijl436 ALBUMIN 2.2 g/dL 03/05/2016 Comp Metabolic Sde655 TPRO 4.0 g/dL 03/05/2016 Comp Metabolic Ezg006 GLOB 1.9 g/dL 03/05/2016 Comp Metabolic Vvj745 A/G Ratio 1.2 Ratio 03/05/2016 Comp Metabolic Hew115 Osmo 278 mOsmo 03/05/2016 Urine Culture Ucult Preliminary NO Growth Day 1 12/13/2015 Urine Culture Ucult Complete NO Growth Day 2 12/13/2015 C-Reactive Protein Qnt Crqnt CRP 2.3 mg/dl 06/13/2015 Cpk Ord61 CPK 55 U/L 06/13/2015 Comp Metabolic Ntj955 NA 137 mEq/L 06/13/2015 Comp Metabolic Sxe870 K 3.7 mEq/L 06/13/2015 Comp Metabolic Dtq093 CL 106 mEq/L 06/13/2015 Comp Metabolic Kof348 CO2 20.0 mEq/L 06/13/2015 Comp Metabolic Acz611 ANION GAP 15 06/13/2015 Comp Metabolic Rpu832 GLUCOSE 89 mg/dL 06/13/2015 Comp Metabolic Qei117 Creat 0.8 mg/dL 06/13/2015 Comp Metabolic Izp791 eGFR 94 ml/min/1.73m2 06/13/2015 Comp Metabolic Weg882 BUN 11 mg/dL 06/13/2015 Comp Metabolic Cer235 B/C Ratio 13.3 Ratio 06/13/2015 Comp Metabolic Igs278 CALCIUM 8.3 mg/dL 06/13/2015 Comp Metabolic Vyn063 ALK PHOS 64 U/L 06/13/2015 Comp Metabolic Kvy643 AST(SGOT) 15 U/L 06/13/2015 Comp Metabolic Nnj072 ALT(SGPT) 15 U/L 06/13/2015 Comp Metabolic Nmu919 BILI T 0.3 mg/dL 06/13/2015 Comp Metabolic Vjl251 ALBUMIN 3.0 g/dL 06/13/2015 Comp Metabolic Mmc652 TPRO 5.5 g/dL 06/13/2015 Comp Metabolic Tdz831 GLOB 2.5 g/dL 06/13/2015 Comp Metabolic Cki935 A/G Ratio 1.2 Ratio 06/13/2015 Comp Metabolic Dmg765 Osmo 273 mOsmo 06/13/2015 Sed Rate Ord21 ESR 22 mm/hr 06/13/2015 Cbc With Differential Ord2 WBC 12.87 K/ul 06/13/2015 Cbc With Differential Ord2 RBC 4.70 M/ul 06/13/2015 Cbc With Differential Ord2 HGB 13.5 g/dl 06/13/2015 Cbc With Differential Ord2 HCT 44.5 % 06/13/2015 Cbc With Differential Ord2 Neut% 83.1 % 06/13/2015 Cbc With Differential Ord2 MCV 94.7 fl 06/13/2015 Cbc With Differential Ord2 Lymph% 10.0 % 06/13/2015 Cbc With Differential Ord2 MCH 28.7 pg 06/13/2015 Cbc With Differential Ord2 Payne% 6.3 % 06/13/2015 Cbc With Differential Ord2 MCHC 30.3 pg 06/13/2015 Cbc With Differential Ord2 Eos% 0.4 % 06/13/2015 Cbc With Differential Ord2 PLT 259 K/ul 06/13/2015 Cbc With Differential Ord2 Baso% 0.2 % 06/13/2015 Cbc With Differential Ord2 Neut ABS# 10.69 K/ul 06/13/2015 Cbc With Differential Ord2 RDW 16.1 % 06/13/2015 Cbc With Differential Ord2 Lymph ABS# 1.29 K/ul 06/13/2015 Cbc With Differential Ord2 Payne ABS# 0.8 K/ul 06/13/2015 Cbc With Differential Ord2 Eos ABS# 0.1 K/ul 06/13/2015 Cbc With Differential Ord2 Baso ABS# 0.0 K/ul 06/13/2015 Cbc With Differential Ord2 New Analyzer Notice Please note new ref ranges starting 05-24-2015 due to implemntation of new five part differential hematolgy analyzer. 06/13/2015 Review of Systems System Result Effective Dates Constitutional No recent illness 2017 Constitutional No chills 12/30/2017 Constitutional No fever 12/30/2017 Eyes No eye erythema 12/30/2017 Ears/Nose/Throat/Neck No nasal discharge 12/30/2017 Cardiovascular No chest pain/pressure Cardiovascular No dyspnea 12/30/2017 Respiratory No cough 12/30/2017 Respiratory No dyspnea 12/30/2017 Musculoskeletal joint complaint 2017 Neurologic No alteration of consciousness 12/30/2017 Neurologic No mental status change 2017 Constitutional recent illness 11/27/2017 Constitutional chills 11/27/2017 Constitutional fever 11/27/2017 Eyes No eye erythema 11/27/2017 Ears/Nose/Throat/Neck nasal allergies Ears/Nose/Throat/Neck nasal discharge Ears/Nose/Throat/Neck postnasal drip Ears/Nose/Throat/Neck sinus congestion Cardiovascular No chest pain/pressure Respiratory productive sputum 11/27/2017 Respiratory cough 11/27/2017 Respiratory wheezing 11/27/2017 Gastrointestinal No abdominal pain 2017 Musculoskeletal No joint complaint 2017 Dermatologic No rash 11/27/2017 Neurologic No alteration of consciousness 11/27/2017 Neurologic No mental status change 2017 Constitutional fatigue 11/27/2017 Ears/Nose/Throat/Neck sore throat 2017 Respiratory chest congestion 11/27/2017 Respiratory No dyspnea 11/27/2017 Respiratory dyspnea on exertion 2017 Constitutional No recent illness 2017 Constitutional No chills 11/17/2017 Constitutional No fever 11/17/2017 Eyes No eye erythema 11/17/2017 Ears/Nose/Throat/Neck No nasal discharge 11/17/2017 Cardiovascular No chest pain/pressure 01/2018 Respiratory No cough 11/17/2017 Respiratory No chest congestion 2017 Dermatologic sores 11/17/2017 Neurologic No alteration of consciousness 11/17/2017 Neurologic No mental status change 2017 Constitutional No recent illness 2017 Constitutional No chills 11/04/2017 Constitutional No diaphoresis 11/04/2017 Constitutional No fever 11/04/2017 Eyes No eye erythema 11/04/2017 Ears/Nose/Throat/Neck No nasal discharge 11/04/2017 Ears/Nose/Throat/Neck nasal allergies Ears/Nose/Throat/Neck otalgia 11/04/2017 Ears/Nose/Throat/Neck postnasal drip Ears/Nose/Throat/Neck No sore throat Cardiovascular No chest pain/pressure Respiratory No dyspnea 11/04/2017 Respiratory No cough 11/04/2017 Gastrointestinal No abdominal pain 2017 Neurologic No alteration of consciousness 11/04/2017 Neurologic No mental status change 2017 Constitutional recent illness 09/22/2017 Constitutional chills 09/22/2017 Constitutional No diaphoresis 09/22/2017 Constitutional fatigue 09/22/2017 Constitutional fever 09/22/2017 Constitutional malaise 09/22/2017 Eyes No eye erythema 09/22/2017 Ears/Nose/Throat/Neck nasal allergies Ears/Nose/Throat/Neck No nasal discharge 09/22/2017 Ears/Nose/Throat/Neck No sinus congestion 09/22/2017 Cardiovascular No chest pain/pressure Respiratory No chest congestion 2017 Respiratory No cough 09/22/2017 Respiratory dyspnea on exertion 2017 Gastrointestinal No abdominal pain 2017 Gastrointestinal No constipation 2017 Gastrointestinal No diarrhea 09/22/2017 Gastrointestinal nausea 09/22/2017 Neurologic No alteration of consciousness 09/22/2017 Neurologic No mental status change 2017 Constitutional recent illness 09/15/2017 Constitutional No chills 09/15/2017 Constitutional No diaphoresis 09/15/2017 Constitutional fatigue 09/15/2017 Constitutional malaise 09/15/2017 Eyes No eye erythema 09/15/2017 Ears/Nose/Throat/Neck nasal allergies 11/2017 Ears/Nose/Throat/Neck No nasal discharge 09/15/2017 Ears/Nose/Throat/Neck No otalgia 2017 Ears/Nose/Throat/Neck No sinus congestion 09/15/2017 Cardiovascular No chest pain/pressure 11/2017 Respiratory No chest congestion 2017 Respiratory No cough 09/15/2017 Respiratory dyspnea on exertion 2017 Gastrointestinal No abdominal pain 2017 Gastrointestinal No constipation 2017 Gastrointestinal No diarrhea 09/15/2017 Gastrointestinal nausea 09/15/2017 Neurologic No alteration of consciousness 09/15/2017 Neurologic No mental status change 2017 Constitutional No fever 09/15/2017 Dermatologic erythema 09/15/2017 Neurologic dyskinesia or tremor 2017 Constitutional recent illness 04/23/2017 Constitutional No chills 04/23/2017 Constitutional No diaphoresis 04/23/2017 Constitutional fever 04/23/2017 Constitutional fatigue 04/23/2017 Eyes No eye erythema 04/23/2017 Ears/Nose/Throat/Neck nasal discharge Ears/Nose/Throat/Neck nasal allergies Ears/Nose/Throat/Neck otalgia 04/23/2017 Ears/Nose/Throat/Neck otitis media 2016 Ears/Nose/Throat/Neck postnasal drip Ears/Nose/Throat/Neck sinus congestion Cardiovascular No chest pain/pressure Respiratory No chest congestion 2016 Constitutional malaise 04/23/2017 Respiratory cough 04/23/2017 Gastrointestinal No abdominal pain 2016 Gastrointestinal No vomiting 04/23/2017 Gastrointestinal No nausea 04/23/2017 Neurologic No alteration of consciousness 04/23/2017 Neurologic No mental status change 2016 Constitutional recent illness 03/27/2017 Constitutional fatigue 03/27/2017 Constitutional fever 03/27/2017 Constitutional malaise 03/27/2017 Eyes No eye erythema 03/27/2017 Ears/Nose/Throat/Neck headache 2016 Ears/Nose/Throat/Neck nasal allergies Ears/Nose/Throat/Neck nasal discharge Ears/Nose/Throat/Neck sinus congestion Cardiovascular No chest pain/pressure Respiratory No chest congestion 2016 Respiratory No cough 03/27/2017 Respiratory dyspnea on exertion 2016 Gastrointestinal No abdominal pain 2016 Gastrointestinal No constipation 2016 Gastrointestinal No diarrhea 03/27/2017 Gastrointestinal nausea 03/27/2017 Dermatologic No rash 03/27/2017 Neurologic No alteration of consciousness 03/27/2017 Neurologic No mental status change 2016 Constitutional recent illness 03/04/2017 Constitutional fatigue 03/04/2017 Constitutional fever 03/04/2017 Constitutional malaise 03/04/2017 Eyes No eye erythema 03/04/2017 Ears/Nose/Throat/Neck nasal allergies Ears/Nose/Throat/Neck nasal discharge Ears/Nose/Throat/Neck No otalgia 2016 Cardiovascular No chest pain/pressure Respiratory No chest congestion 2016 Respiratory No cough 03/04/2017 Respiratory dyspnea on exertion 2016 Gastrointestinal No abdominal pain 2016 Gastrointestinal No constipation 2016 Gastrointestinal No diarrhea 03/04/2017 Gastrointestinal nausea 03/04/2017 Dermatologic No rash 03/04/2017 Neurologic No alteration of consciousness 03/04/2017 Neurologic No mental status change 2016 Ears/Nose/Throat/Neck sinus congestion Ears/Nose/Throat/Neck sore throat 2016 Ears/Nose/Throat/Neck headache 2016 Constitutional recent illness 02/25/2017 Constitutional No chills 02/25/2017 Constitutional No diaphoresis 02/25/2017 Eyes No eye erythema 02/25/2017 Ears/Nose/Throat/Neck nasal allergies Ears/Nose/Throat/Neck No nasal discharge 02/25/2017 Cardiovascular No chest pain/pressure Respiratory No cough 02/25/2017 Respiratory dyspnea on exertion 2016 Gastrointestinal No abdominal pain 2016 Gastrointestinal No constipation 2016 Gastrointestinal No diarrhea 02/25/2017 Gastrointestinal nausea 02/25/2017 Dermatologic No rash 02/25/2017 Neurologic No alteration of consciousness 02/25/2017 Neurologic No mental status change 2016 Constitutional malaise 02/25/2017 Constitutional fever 02/25/2017 Constitutional fatigue 02/25/2017 Ears/Nose/Throat/Neck No sinus congestion 02/25/2017 Ears/Nose/Throat/Neck No otalgia 2016 Respiratory No chest congestion 2016 Constitutional recent illness 02/20/2017 Constitutional fever 02/20/2017 Constitutional malaise 02/20/2017 Eyes No eye erythema 02/20/2017 Ears/Nose/Throat/Neck nasal allergies 04/2017 Ears/Nose/Throat/Neck nasal discharge 04/2017 Ears/Nose/Throat/Neck No otalgia 2016 Ears/Nose/Throat/Neck postnasal drip 04/2017 Ears/Nose/Throat/Neck sinus congestion Cardiovascular No chest pain/pressure 04/2017 Respiratory No cough 02/20/2017 Neurologic No alteration of consciousness 02/20/2017 Neurologic No mental status change 2016 Ears/Nose/Throat/Neck sore throat 2016 Constitutional recent illness 02/04/2017 Constitutional No chills 02/04/2017 Constitutional No diaphoresis 02/04/2017 Eyes No eye erythema 02/04/2017 Ears/Nose/Throat/Neck No nasal discharge 02/04/2017 Ears/Nose/Throat/Neck No nasal allergies 02/04/2017 Cardiovascular No chest pain/pressure Respiratory No cough 02/04/2017 Respiratory dyspnea on exertion 2016 Respiratory No chest congestion 2016 Gastrointestinal No abdominal pain 2016 Gastrointestinal No constipation 2016 Gastrointestinal No diarrhea 02/04/2017 Gastrointestinal nausea 02/04/2017 Dermatologic No rash 02/04/2017 Neurologic No alteration of consciousness 02/04/2017 Neurologic No mental status change 2016 Constitutional No chills 01/28/2017 Constitutional No diaphoresis 01/28/2017 Constitutional fatigue 01/28/2017 Constitutional fever 01/28/2017 Constitutional malaise 01/28/2017 Eyes No eye erythema 01/28/2017 Ears/Nose/Throat/Neck No nasal allergies 01/28/2017 Ears/Nose/Throat/Neck No nasal discharge 01/28/2017 Ears/Nose/Throat/Neck No otalgia 2016 Ears/Nose/Throat/Neck No sinus congestion 01/28/2017 Ears/Nose/Throat/Neck No sore throat Cardiovascular No chest pain/pressure Respiratory No chest congestion 2016 Respiratory No cough 01/28/2017 Respiratory dyspnea on exertion 2016 Gastrointestinal No constipation 2016 Gastrointestinal No diarrhea 01/28/2017 Gastrointestinal nausea 01/28/2017 Genitourinary/Nephrology No dysuria 01/28 Musculoskeletal myalgias 01/28/2017 Neurologic No alteration of consciousness 01/28/2017 Neurologic No mental status change 2016 Neurologic pain, generalized 01/28/2017 Neurologic paresthesia 01/28/2017 Constitutional No chills 12/13/2016 Constitutional No diaphoresis 12/13/2016 Constitutional fatigue 12/13/2016 Constitutional malaise 12/13/2016 Constitutional No fever 12/13/2016 Eyes No eye erythema 12/13/2016 Ears/Nose/Throat/Neck No nasal discharge 12/13/2016 Ears/Nose/Throat/Neck No otalgia 2016 Ears/Nose/Throat/Neck No nasal allergies 12/13/2016 Ears/Nose/Throat/Neck No sinus congestion 12/13/2016 Ears/Nose/Throat/Neck No sore throat 08/2016 Cardiovascular No chest pain/pressure 08/2016 Respiratory dyspnea on exertion 2016 Respiratory No cough 12/13/2016 Respiratory No chest congestion 2016 Gastrointestinal abdominal pain 2016 Gastrointestinal No diarrhea 12/13/2016 Gastrointestinal No constipation 2016 Gastrointestinal nausea 12/13/2016 Genitourinary/Nephrology No dysuria 12/13 Genitourinary/Nephrology hematuria 2016 Musculoskeletal myalgias 12/13/2016 Dermatologic rash 12/13/2016 Neurologic No alteration of consciousness 12/13/2016 Neurologic No mental status change 2016 Constitutional recent illness 10/21/2016 Constitutional fatigue 10/21/2016 Constitutional No fever 10/21/2016 Constitutional insomnia 10/21/2016 Constitutional No malaise 10/21/2016 Eyes No eye discharge 10/21/2016 Eyes No eye erythema 10/21/2016 Ears/Nose/Throat/Neck nasal allergies 04/2017 Ears/Nose/Throat/Neck nasal discharge 04/2017 Ears/Nose/Throat/Neck otalgia 10/21/2016 Ears/Nose/Throat/Neck postnasal drip 04/2017 Ears/Nose/Throat/Neck sinus congestion Ears/Nose/Throat/Neck sore throat 2016 Cardiovascular No chest pain/pressure 04/2017 Cardiovascular No dyspnea 10/21/2016 Respiratory No chest congestion 2016 Gastrointestinal No abdominal pain 2016 Dermatologic No rash 10/21/2016 Neurologic No alteration of consciousness 10/21/2016 Neurologic No mental status change 2016 Respiratory cough 10/21/2016 Constitutional No recent illness 2016 Constitutional No chills 09/30/2016 Constitutional No diaphoresis 09/30/2016 Constitutional No fever 09/30/2016 Eyes No eye erythema 09/30/2016 Ears/Nose/Throat/Neck nasal allergies Ears/Nose/Throat/Neck No nasal discharge 09/30/2016 Cardiovascular No chest pain/pressure Respiratory dyspnea on exertion 2016 Respiratory No dyspnea 09/30/2016 Respiratory No cough 09/30/2016 Neurologic No alteration of consciousness 09/30/2016 Neurologic No mental status change 2016 Psychiatric anxiety 09/30/2016 Psychiatric depression 09/30/2016 Constitutional recent illness 09/17/2016 Constitutional No chills 09/17/2016 Constitutional No diaphoresis 09/17/2016 Constitutional No fever 09/17/2016 Constitutional fatigue 09/17/2016 Constitutional malaise 09/17/2016 Eyes No eye erythema 09/17/2016 Ears/Nose/Throat/Neck No nasal allergies 09/17/2016 Ears/Nose/Throat/Neck No nasal discharge 09/17/2016 Cardiovascular chest pain/pressure 2016 Respiratory dyspnea on exertion 2016 Respiratory No cough 09/17/2016 Gastrointestinal No abdominal pain 2016 Musculoskeletal joint complaint 2016 Dermatologic rash 09/17/2016 Neurologic No alteration of consciousness 09/17/2016 Neurologic No mental status change 2016 Constitutional recent illness 07/15/2016 Constitutional fever 07/15/2016 Constitutional malaise 07/15/2016 Eyes No eye erythema 07/15/2016 Ears/Nose/Throat/Neck nasal allergies 10/2016 Ears/Nose/Throat/Neck nasal discharge 10/2016 Ears/Nose/Throat/Neck postnasal drip 10/2016 Ears/Nose/Throat/Neck sinus congestion Cardiovascular No chest pain/pressure 10/2016 Respiratory cough 07/15/2016 Neurologic No alteration of consciousness 07/15/2016 Neurologic No mental status change 2016 Constitutional chills 07/15/2016 Ears/Nose/Throat/Neck sore throat 2016 Respiratory productive sputum 07/15/2016 Neurologic headache 07/15/2016 Constitutional recent illness 07/04/2016 Constitutional No fever 07/04/2016 Constitutional malaise 07/04/2016 Eyes No eye erythema 07/04/2016 Ears/Nose/Throat/Neck nasal allergies Ears/Nose/Throat/Neck nasal discharge Ears/Nose/Throat/Neck No otalgia 2016 Ears/Nose/Throat/Neck postnasal drip Ears/Nose/Throat/Neck sinus congestion Respiratory No cough 07/04/2016 Neurologic No alteration of consciousness 07/04/2016 Neurologic No mental status change 2016 Cardiovascular No chest pain/pressure Constitutional recent illness 07/01/2016 Constitutional chills 07/01/2016 Constitutional fatigue 07/01/2016 Eyes No eye erythema 07/01/2016 Ears/Nose/Throat/Neck headache 2016 Cardiovascular No chest pain/pressure Respiratory No dyspnea 07/01/2016 Gastrointestinal nausea 07/01/2016 Gastrointestinal No constipation 2016 Gastrointestinal diarrhea 07/01/2016 Musculoskeletal myalgias 07/01/2016 Dermatologic No rash 07/01/2016 Neurologic No alteration of consciousness 07/01/2016 Neurologic No mental status change 2016 Psychiatric anxiety 07/01/2016 Neurologic headache 07/01/2016 Neurologic paresthesia 07/01/2016 Constitutional recent illness 06/05/2016 Constitutional malaise 06/05/2016 Eyes No eye erythema 06/05/2016 Ears/Nose/Throat/Neck nasal allergies Ears/Nose/Throat/Neck nasal discharge Ears/Nose/Throat/Neck otalgia 06/05/2016 Ears/Nose/Throat/Neck postnasal drip Ears/Nose/Throat/Neck sinus congestion Ears/Nose/Throat/Neck sore throat 2016 Cardiovascular No dyspnea 06/05/2016 Respiratory No cough 06/05/2016 Neurologic No alteration of consciousness 06/05/2016 Neurologic No mental status change 2016 Constitutional No fever 06/05/2016 Constitutional recent illness 04/02/2016 Constitutional No diaphoresis 04/02/2016 Eyes No eye erythema 04/02/2016 Ears/Nose/Throat/Neck nasal allergies Ears/Nose/Throat/Neck nasal discharge Ears/Nose/Throat/Neck postnasal drip Cardiovascular No chest pain/pressure Cardiovascular No dyspnea 04/02/2016 Respiratory No chest congestion 2015 Respiratory No dyspnea 04/02/2016 Gastrointestinal No constipation 2015 Gastrointestinal No diarrhea 04/02/2016 Gastrointestinal No nausea 04/02/2016 Gastrointestinal No vomiting 04/02/2016 Dermatologic No rash 04/02/2016 Neurologic No alteration of consciousness 04/02/2016 Neurologic No mental status change 2015 Ears/Nose/Throat/Neck otalgia 04/02/2016 Constitutional recent illness 03/22/2016 Constitutional chills 03/22/2016 Constitutional malaise 03/22/2016 Constitutional fever 03/22/2016 Eyes No eye erythema 03/22/2016 Ears/Nose/Throat/Neck nasal allergies 03/2016 Ears/Nose/Throat/Neck nasal discharge 03/2016 Ears/Nose/Throat/Neck sore throat 2015 Ears/Nose/Throat/Neck sinus congestion Ears/Nose/Throat/Neck postnasal drip 03/2016 Ears/Nose/Throat/Neck otalgia 03/22/2016 Cardiovascular No dyspnea 03/22/2016 Respiratory No cough 03/22/2016 Neurologic No alteration of consciousness 03/22/2016 Neurologic No mental status change 2015 Constitutional recent illness 03/05/2016 Constitutional No chills 03/05/2016 Constitutional malaise 03/05/2016 Constitutional No fever 03/05/2016 Constitutional fatigue 03/05/2016 Eyes No eye erythema 03/05/2016 Ears/Nose/Throat/Neck No nasal discharge 03/05/2016 Cardiovascular No dyspnea 03/05/2016 Cardiovascular No chest pain/pressure Cardiovascular fatigue 03/05/2016 Cardiovascular hypertension 03/05/2016 Cardiovascular edema 03/05/2016 Respiratory cough 03/05/2016 Respiratory No chest congestion 2015 Respiratory No dyspnea 03/05/2016 Respiratory dyspnea on exertion 2015 Gastrointestinal dysphagia 03/05/2016 Musculoskeletal joint complaint 2015 Neurologic No alteration of consciousness 03/05/2016 Neurologic No mental status change 2015 Constitutional recent illness 01/29/2016 Constitutional fatigue 01/29/2016 Constitutional No fever 01/29/2016 Constitutional insomnia 01/29/2016 Constitutional No malaise 01/29/2016 Eyes No eye discharge 01/29/2016 Eyes No eye erythema 01/29/2016 Ears/Nose/Throat/Neck nasal allergies Ears/Nose/Throat/Neck nasal discharge Ears/Nose/Throat/Neck otalgia 01/29/2016 Ears/Nose/Throat/Neck postnasal drip Ears/Nose/Throat/Neck sinus congestion Ears/Nose/Throat/Neck sore throat 2015 Cardiovascular No chest pain/pressure Cardiovascular No dyspnea 01/29/2016 Respiratory No chest congestion 2015 Gastrointestinal No abdominal pain 2015 Dermatologic No rash 01/29/2016 Neurologic No alteration of consciousness 01/29/2016 Neurologic No mental status change 2015 Constitutional recent illness 12/11/2015 Constitutional No anorexia 12/11/2015 Constitutional No night sweats 2015 Constitutional No diaphoresis 12/11/2015 Constitutional No chills 12/11/2015 Constitutional fatigue 12/11/2015 Constitutional No fever 12/11/2015 Constitutional insomnia 12/11/2015 Constitutional No malaise 12/11/2015 Constitutional No weight loss 12/11/2015 Constitutional weight gain 12/11/2015 Eyes No eye discharge 12/11/2015 Eyes No eye erythema 12/11/2015 Ears/Nose/Throat/Neck No dizziness 2015 Ears/Nose/Throat/Neck headache 2015 Cardiovascular No chest pain/pressure 05/2015 Cardiovascular No dyspnea 12/11/2015 Cardiovascular edema 12/11/2015 Respiratory No productive sputum 2015 Respiratory No chest congestion 2015 Respiratory No cough 12/11/2015 Gastrointestinal No abdominal pain 2015 Gastrointestinal No constipation 2015 Gastrointestinal No diarrhea 12/11/2015 Genitourinary/Nephrology No dysuria 12/10 Genitourinary/Nephrology flank pain 12/10 Dermatologic No rash 12/11/2015 Musculoskeletal back pain 12/11/2015 Neurologic No alteration of consciousness 12/11/2015 Constitutional recent illness 11/09/2015 Constitutional fatigue 11/09/2015 Constitutional No fever 11/09/2015 Constitutional insomnia 11/09/2015 Constitutional No malaise 11/09/2015 Eyes No eye discharge 11/09/2015 Eyes No eye erythema 11/09/2015 Gastrointestinal No abdominal pain 2015 Dermatologic No rash 11/09/2015 Neurologic No alteration of consciousness 11/09/2015 Ears/Nose/Throat/Neck nasal allergies Ears/Nose/Throat/Neck nasal discharge Ears/Nose/Throat/Neck sinus congestion Ears/Nose/Throat/Neck otalgia 11/09/2015 Ears/Nose/Throat/Neck sore throat 2015 Ears/Nose/Throat/Neck postnasal drip Cardiovascular No chest pain/pressure Cardiovascular No dyspnea 11/09/2015 Respiratory No chest congestion 2015 Neurologic No mental status change 2015 Constitutional recent illness 09/12/2015 Constitutional No anorexia 09/12/2015 Constitutional fatigue 09/12/2015 Constitutional No fever 09/12/2015 Constitutional insomnia 09/12/2015 Constitutional No malaise 09/12/2015 Constitutional No weight loss 09/12/2015 Constitutional weight gain 09/12/2015 Eyes No eye discharge 09/12/2015 Eyes No eye erythema 09/12/2015 Ears/Nose/Throat/Neck No headache 2015 Cardiovascular edema 09/12/2015 Respiratory No cough 09/12/2015 Gastrointestinal No abdominal pain 2015 Genitourinary/Nephrology No dysuria 09/11 Musculoskeletal joint complaint 2015 Dermatologic No rash 09/12/2015 Neurologic No alteration of consciousness 09/12/2015 Constitutional No chills 08/28/2015 Constitutional No diaphoresis 08/28/2015 Constitutional fatigue 08/28/2015 Constitutional No insomnia 08/28/2015 Eyes No eye discharge 08/28/2015 Eyes No eye erythema 08/28/2015 Cardiovascular No chest pain/pressure Cardiovascular No dyspnea 08/28/2015 Cardiovascular No edema 08/28/2015 Respiratory No cough 08/28/2015 Gastrointestinal No diarrhea 08/28/2015 Genitourinary/Nephrology No dysuria 08/27 Musculoskeletal joint complaint 2015 Dermatologic No rash 08/28/2015 Ears/Nose/Throat/Neck cerumen 08/28/2015 Gastrointestinal constipation 08/28/2015 Constitutional recent illness 08/11/2015 Constitutional No chills 08/11/2015 Constitutional No diaphoresis 08/11/2015 Constitutional fatigue 08/11/2015 Constitutional No insomnia 08/11/2015 Eyes No eye discharge 08/11/2015 Eyes No eye erythema 08/11/2015 Cardiovascular No chest pain/pressure 05/2015 Cardiovascular No dyspnea 08/11/2015 Cardiovascular No edema 08/11/2015 Respiratory No cough 08/11/2015 Gastrointestinal constipation 08/11/2015 Gastrointestinal No diarrhea 08/11/2015 Genitourinary/Nephrology No dysuria 08/10 Musculoskeletal joint complaint 2015 Dermatologic No rash 08/11/2015 Ears/Nose/Throat/Neck otalgia 08/11/2015 Gastrointestinal hematochezia 08/11/2015 Gastrointestinal hemorrhoids 08/11/2015 Constitutional recent illness 07/31/2015 Constitutional No chills 07/31/2015 Constitutional No diaphoresis 07/31/2015 Constitutional fatigue 07/31/2015 Constitutional No insomnia 07/31/2015 Eyes No eye discharge 07/31/2015 Eyes No eye erythema 07/31/2015 Cardiovascular No chest pain/pressure Cardiovascular No dyspnea 07/31/2015 Cardiovascular No edema 07/31/2015 Respiratory No cough 07/31/2015 Genitourinary/Nephrology No dysuria 07/30 Musculoskeletal joint complaint 2015 Dermatologic No rash 07/31/2015 Ears/Nose/Throat/Neck otalgia 07/31/2015 Ears/Nose/Throat/Neck otitis media 2015 Gastrointestinal No diarrhea 07/31/2015 Gastrointestinal No constipation 2015 Constitutional recent illness 06/12/2015 Constitutional No chills 06/12/2015 Constitutional No diaphoresis 06/12/2015 Constitutional fatigue 06/12/2015 Constitutional No insomnia 06/12/2015 Eyes No eye discharge 06/12/2015 Eyes No eye erythema 06/12/2015 Ears/Nose/Throat/Neck No dizziness 2015 Ears/Nose/Throat/Neck No headache 2015 Cardiovascular No chest pain/pressure 05/2015 Cardiovascular No dyspnea 06/12/2015 Cardiovascular No edema 06/12/2015 Respiratory No cough 06/12/2015 Genitourinary/Nephrology No dysuria 06/12 Dermatologic No rash 06/12/2015 Gastrointestinal nausea 06/12/2015 Gastrointestinal vomiting 06/12/2015 Musculoskeletal joint complaint 2015 Ears/Nose/Throat/Neck No dizziness 2014 Ears/Nose/Throat/Neck No headache 2014 Constitutional recent illness 01/20/2015 Constitutional No anorexia 01/20/2015 Constitutional No night sweats 2014 Constitutional No chills 01/20/2015 Constitutional No diaphoresis 01/20/2015 Constitutional fatigue 01/20/2015 Constitutional No fever 01/20/2015 Constitutional No insomnia 01/20/2015 Constitutional No malaise 01/20/2015 Constitutional No weight loss 01/20/2015 Constitutional No weight gain 01/20/2015 Eyes No eye erythema 01/20/2015 Eyes No eye discharge 01/20/2015 Musculoskeletal joint complaint 2014 Musculoskeletal No myalgias 01/20/2015 Cardiovascular No chest pain/pressure 03/2015 Cardiovascular No dyspnea 01/20/2015 Cardiovascular No edema 01/20/2015 Respiratory No cough 01/20/2015 Gastrointestinal No abdominal pain 2014 Gastrointestinal No constipation 2014 Gastrointestinal No diarrhea 01/20/2015 Genitourinary/Nephrology No dysuria 01/20 Genitourinary/Nephrology No flank pain Dermatologic No rash 01/20/2015 Constitutional No recent illness 2014 Constitutional No anorexia 10/07/2014 Constitutional No night sweats 2014 Constitutional No chills 10/07/2014 Constitutional No diaphoresis 10/07/2014 Constitutional fatigue 10/07/2014 Constitutional No fever 10/07/2014 Constitutional No insomnia 10/07/2014 Constitutional malaise 10/07/2014 Constitutional No weight loss 10/07/2014 Constitutional No weight gain 10/07/2014 Ears/Nose/Throat/Neck dizziness 2014 Ears/Nose/Throat/Neck headache 2014 Eyes No eye discharge 10/07/2014 Eyes No eye erythema 10/07/2014 Eyes No vision change 10/07/2014 Respiratory No productive sputum 2014 Respiratory No chest congestion 2014 Respiratory No cough 10/07/2014 Gastrointestinal No constipation 2014 Gastrointestinal No diarrhea 10/07/2014 Gastrointestinal gastroesophageal reflux 10/07/2014 Gastrointestinal nausea 10/07/2014 Gastrointestinal No vomiting 10/07/2014 Genitourinary/Nephrology No dysuria 10/07 Musculoskeletal joint complaint 2014 Musculoskeletal muscle weakness 2014 Dermatologic rash 10/07/2014 Dermatologic No sores 10/07/2014 Neurologic dizziness 10/07/2014 Neurologic No alteration of consciousness 10/07/2014 Psychiatric depression 10/07/2014 Physical Exam Exam Name System Name Item Name Status Result Effective Dates Notes Full Exam - Orthopedics Constitutional general appearance Overall: well nourished 12/30/2017 None Full Exam - Orthopedics Constitutional general appearance Overall: well developed 12/30/2017 None Full Exam - Orthopedics Constitutional general appearance Overall: in no acute distress 12/30/2017 None Full Exam - Orthopedics Eyes conjunctiva/ eyelids Overall: conjunctiva clear 12/30/2017 None Full Exam - Orthopedics Eyes conjunctiva/ eyelids Overall: eyelids normal 12/30/2017 None Full Exam - Orthopedics Ears/Nose/Throat lips/teeth/gingiva Overall: benign lips 12/30/2017 None Full Exam - Orthopedics Ears/Nose/Throat oral cavity/pharynx/larynx Overall: oral mucosa clear 12/30/2017 None Full Exam - Orthopedics Respiratory respiratory effort/rhythm Overall: no retractions 12/30/2017 None Full Exam - Orthopedics Respiratory respiratory effort/rhythm Overall: normal rate 12/30/2017 None Full Exam - Orthopedics Psychiatric orientation/consciousness Overall: oriented to person, place and time 12/30/2017 None Full Exam - Orthopedics Psychiatric mood and affect Overall: normal mood and affect 12/30/2017 None Full Exam - Orthopedics Psychiatric appearance Overall: well-groomed, good eye contact 12/30/2017 None Full Exam - Orthopedics MS: head/neck insp & palp - H/N Overall: head atraumatic 12/30/2017 None Full Exam - Orthopedics MS: left lower extremity insp & palp - LLE Knee: joint swelling 12/30/2017 None Full Exam - Orthopedics MS: left lower extremity insp & palp - LLE Knee: joint tenderness 12/30/2017 None Full Exam - Orthopedics MS: left lower extremity range of motion - LLE Knee: pain with flexion 12/30/2017 None Full Exam - Orthopedics MS: left lower extremity range of motion - LLE Knee: pain with extension 12/30/2017 None Full Exam - Orthopedics MS: left lower extremity stability - LLE Knee: hypermobile 12/30/2017 None Full Exam - General 1994 Constitutional general appearance Overall: well developed 11/27/2017 None Full Exam - General 1994 Constitutional general appearance Overall: in no acute distress 11/27/2017 None Full Exam - General 1994 Constitutional general appearance Overall: well nourished 11/27/2017 None Full Exam - General 1994 Eyes conjunctiva /eyelids Overall: conjunctiva clear 11/27/2017 None Full Exam - General 1994 Eyes conjunctiva /eyelids Overall: eyelids normal 11/27/2017 None Full Exam - General 1994 Ears/Nose/Throat otoscopic exam Overall: external auditory canals clear 11/27/2017 None Full Exam - General 1994 Ears/Nose/Throat otoscopic exam Tympanic membrane: air- fluid level 11/27/2017 None Full Exam - General 1994 Ears/Nose/Throat lips/teeth/gingiva Overall: benign lips 11/27/2017 None Full Exam - General 1994 Ears/Nose/Throat oral cavity/pharynx/larynx Overall: oral mucosa clear 11/27/2017 None Full Exam - General 1994 Ears/Nose/Throat oral cavity/pharynx/larynx Posterior Pharynx: clear post nasal drainage 11/27/2017 None Full Exam - General 1994 Respiratory auscultation Diffuse: diminished 11/27/2017 None Full Exam - General 1994 Respiratory auscultation Lower lung field: expiratory wheezes 11/27/2017 Faint Full Exam - General 1994 Respiratory respiratory effort/rhythm Overall: no retractions 11/27/2017 None Full Exam - General 1994 Respiratory respiratory effort/rhythm Overall: normal rate 11/27/2017 None Full Exam - General 1994 Cardiovascular auscultation of heart Overall: regular rate 11/27/2017 None Full Exam - General 1994 Cardiovascular auscultation of heart Overall: normal heart sounds 11/27/2017 None Full Exam - General 1994 Lymphatic neck nodes Overall: anterior cervical chain benign 11/27/2017 None Full Exam - General 1994 Lymphatic neck nodes Overall: posterior cervical chain benign 11/27/2017 None Full Exam - General 1994 Neurologic cranial nerves Overall: crainial nerves 2 - 12 grossly intact 11/27/2017 None Full Exam - General 1994 Psychiatric orientation/consciousness Overall: oriented to person, place and time 11/27/2017 None Full Exam - General 1994 Psychiatric mood and affect Overall: normal mood and affect 11/27/2017 None Full Exam - General 1994 Eyes conjunctiva /eyelids Overall: cornea clear 11/27/2017 None Full Exam - General 1994 Respiratory auscultation Lower lung field: diminished 11/27/2017 None Full Exam - General 1994 Musculoskeletal head and neck Overall: head atraumatic 11/27/2017 None Full Exam - Dermatology Integument insp & palp - right lower extremity Lesion: patch 11/19/2017 None Full Exam - Dermatology Integument insp & palp - right lower extremity Location: on the calf 11/19/2017 None Full Exam - Dermatology Integument insp & palp - right lower extremity Color: erythematous 11/19/2017 mild - improved Full Exam - Dermatology Constitutional general appearance Overall: well nourished 11/17/2017 None Full Exam - Dermatology Constitutional general appearance Overall: well developed 11/17/2017 None Full Exam - Dermatology Constitutional general appearance Overall: in no acute distress 11/17/2017 None Full Exam - Dermatology Eyes conjunctiva/ eyelids Overall: normal eyelids 11/17/2017 None Full Exam - Dermatology Eyes conjunctiva/ eyelids Overall: clear corneas 11/17/2017 None Full Exam - Dermatology Eyes conjunctiva/ eyelids Overall: clear conjunctiva bilaterally 11/17/2017 None Full Exam - Dermatology Ears/Nose/Throat lips/teeth/gingiva Overall: benign lips 11/17/2017 None Full Exam - Dermatology Ears/Nose/Throat oropharynx Overall: clear oral mucosa 11/17/2017 None Full Exam - Dermatology Respiratory respiratory effort/rhythm Overall: no retractions 11/17/2017 None Full Exam - Dermatology Respiratory respiratory effort/rhythm Overall: normal rate 11/17/2017 None Full Exam - Dermatology Respiratory auscultation Overall: breath sounds clear bilaterally 11/17/2017 None Full Exam - Dermatology Musculoskeletal head and neck Overall: head atraumatic 11/17/2017 None Full Exam - Dermatology Integument insp & palp - right lower extremity Lesion: patch 11/17/2017 approximately 3 inches in diameter. Full Exam - Dermatology Integument insp & palp - right lower extremity Location: on the calf 11/17/2017 None Full Exam - Dermatology Integument insp & palp - right lower extremity Color: erythematous 11/17/2017 None Full Exam - Dermatology Integument insp & palp - right lower extremity Consistency: tender 11/17/2017 None Full Exam - Dermatology Psychiatric orientation Overall: oriented to person, place and time 11/17/2017 None Full Exam - Dermatology Psychiatric mood and affect Overall: normal mood and affect 11/17/2017 None Full Exam - General 1994 Constitutional general appearance Overall: well developed 11/04/2017 None Full Exam - General 1994 Constitutional general appearance Overall: in no acute distress 11/04/2017 None Full Exam - General 1994 Constitutional general appearance Overall: well nourished 11/04/2017 None Full Exam - General 1994 Eyes conjunctiva /eyelids Conjunctiva: discharge 11/04/2017 None Full Exam - General 1994 Eyes conjunctiva /eyelids Conjunctiva: erythema 11/04/2017 None Full Exam - General 1994 Eyes conjunctiva /eyelids Cornea: clear 11/04/2017 None Full Exam - General 1994 Eyes conjunctiva /eyelids Eyelid: benign 11/04/2017 None Full Exam - General 1994 Eyes conjunctiva /eyelids Conjunctiva: clear 11/04/2017 None Full Exam - General 1994 Eyes pupils and irises Overall: pupils equal, round, reactive to light and accomodation 11/04/2017 None Full Exam - General 1994 Ears/Nose/Throat otoscopic exam Tympanic membrane: air- fluid level 11/04/2017 None Full Exam - General 1994 Ears/Nose/Throat otoscopic exam External auditory canal: minimal cerumen 11/04/2017 None Full Exam - General 1994 Ears/Nose/Throat lips/teeth/gingiva Overall: benign lips 11/04/2017 None Full Exam - General 1995 Ears/Nose/Throat oral cavity/pharynx/larynx Overall: oral mucosa clear 11/04/2017 None Full Exam - General 1994 Ears/Nose/Throat oral cavity/pharynx/larynx Posterior Pharynx: clear post nasal drainage 11/04/2017 None Full Exam - General 1994 Respiratory respiratory effort/rhythm Overall: no retractions 11/04/2017 None Full Exam - General 1994 Respiratory respiratory effort/rhythm Overall: normal rate 11/04/2017 None Full Exam - General 1994 Respiratory auscultation Overall: breath sounds clear bilaterally 11/04/2017 None Full Exam - General 1994 Respiratory auscultation Diffuse: diminished 11/04/2017 None Full Exam - General 1994 Cardiovascular auscultation of heart Overall: regular rate 11/04/2017 None Full Exam - General 1994 Cardiovascular auscultation of heart Overall: normal heart sounds 11/04/2017 None Full Exam - General 1994 Musculoskeletal head and neck Overall: head atraumatic 11/04/2017 None Full Exam - General 1994 Musculoskeletal gait and station Overall: normal station 11/04/2017 None Full Exam - General 1994 Musculoskeletal gait and station Overall: normal gait 11/04/2017 None Full Exam - General 1994 Neurologic cranial nerves Overall: crainial nerves 2 - 12 grossly intact 11/04/2017 None Full Exam - General 1994 Psychiatric orientation/consciousness Overall: oriented to person, place and time 11/04/2017 None Full Exam - General 1994 Psychiatric mood and affect Overall: normal mood and affect 11/04/2017 None Full Exam - General 1994 Constitutional general appearance Overall: well developed 09/22/2017 None Full Exam - General 1994 Constitutional general appearance Overall: in no acute distress 09/22/2017 None Full Exam - General 1994 Constitutional general appearance Overall: well nourished 09/22/2017 None Full Exam - General 1994 Eyes conjunctiva /eyelids Overall: conjunctiva clear 09/22/2017 None Full Exam - General 1994 Eyes conjunctiva /eyelids Overall: eyelids normal 09/22/2017 None Full Exam - General 1994 Ears/Nose/Throat otoscopic exam Overall: external auditory canals clear 09/22/2017 None Full Exam - General 1994 Ears/Nose/Throat otoscopic exam Overall: tympanic membranes clear 09/22/2017 None Full Exam - General 1994 Ears/Nose/Throat lips/teeth/gingiva Overall: benign lips 09/22/2017 None Full Exam - General 1994 Ears/Nose/Throat oral cavity/pharynx/larynx Overall: oral mucosa clear 09/22/2017 None Full Exam - General 1994 Respiratory auscultation Overall: breath sounds clear bilaterally 09/22/2017 None Full Exam - General 1994 Respiratory auscultation Diffuse: diminished 09/22/2017 None Full Exam - General 1994 Respiratory respiratory effort/rhythm Overall: no retractions 09/22/2017 None Full Exam - General 1994 Respiratory respiratory effort/rhythm Overall: normal rate 09/22/2017 None Full Exam - General 1994 Cardiovascular auscultation of heart Overall: regular rate 09/22/2017 None Full Exam - General 1994 Cardiovascular auscultation of heart Overall: normal heart sounds 09/22/2017 None Full Exam - General 1994 Musculoskeletal head and neck Overall: head atraumatic 09/22/2017 None Full Exam - General 1994 Neurologic gait Overall: no ataxia, no unsteadiness 09/22/2017 None Full Exam - General 1994 Neurologic cranial nerves Overall: crainial nerves 2 - 12 grossly intact 09/22/2017 None Full Exam - General 1994 Psychiatric orientation/consciousness Overall: oriented to person, place and time 09/22/2017 None Full Exam - General 1994 Psychiatric mood and affect Overall: normal mood and affect 09/22/2017 None Full Exam - General 1994 Psychiatric appearance Overall: well-groomed, good eye contact 09/22/2017 None Full Exam - General 1994 Eyes conjunctiva /eyelids Overall: cornea clear 09/22/2017 None Full Exam - General 1994 Constitutional general appearance Overall: well developed 09/15/2017 None Full Exam - General 1994 Constitutional general appearance Overall: in no acute distress 09/15/2017 None Full Exam - General 1994 Constitutional general appearance Overall: well nourished 09/15/2017 None Full Exam - General 1994 Eyes conjunctiva /eyelids Overall: conjunctiva clear 09/15/2017 None Full Exam - General 1994 Eyes conjunctiva /eyelids Overall: eyelids normal 09/15/2017 None Full Exam - General 1994 Ears/Nose/Throat otoscopic exam Overall: external auditory canals clear 09/15/2017 None Full Exam - General 1994 Ears/Nose/Throat otoscopic exam Overall: tympanic membranes clear 09/15/2017 None Full Exam - General 1994 Ears/Nose/Throat lips/teeth/gingiva Overall: benign lips 09/15/2017 None Full Exam - General 1994 Ears/Nose/Throat oral cavity/pharynx/larynx Overall: oral mucosa clear 09/15/2017 None Full Exam - General 1994 Respiratory auscultation Overall: breath sounds clear bilaterally 09/15/2017 None Full Exam - General 1994 Respiratory auscultation Diffuse: diminished 09/15/2017 None Full Exam - General 1994 Respiratory respiratory effort/rhythm Overall: no retractions 09/15/2017 None Full Exam - General 1994 Respiratory respiratory effort/rhythm Overall: normal rate 09/15/2017 None Full Exam - General 1994 Cardiovascular auscultation of heart Overall: regular rate 09/15/2017 None Full Exam - General 1994 Cardiovascular auscultation of heart Overall: normal heart sounds 09/15/2017 None Full Exam - General 1994 Musculoskeletal head and neck Overall: head atraumatic 09/15/2017 None Full Exam - General 1994 Neurologic gait Overall: no ataxia, no unsteadiness 09/15/2017 None Full Exam - General 1994 Neurologic cranial nerves Overall: crainial nerves 2 - 12 grossly intact 09/15/2017 None Full Exam - General 1994 Psychiatric orientation/consciousness Overall: oriented to person, place and time 09/15/2017 None Full Exam - General 1994 Psychiatric mood and affect Overall: normal mood and affect 09/15/2017 None Full Exam - General 1994 Psychiatric appearance Overall: well-groomed, good eye contact 09/15/2017 None Full Exam - General 1994 Integument inspection of skin Pigmentation: erythematous 09/15/2017 generalized flushing Full Exam - ENT Constitutional general appearance Overall: well nourished 04/23/2017 None Full Exam - ENT Constitutional general appearance Overall: well developed 04/23/2017 None Full Exam - ENT Constitutional general appearance Overall: in no acute distress 04/23/2017 None Full Exam - ENT Ears/Nose/Throat otoscopic exam Overall: external auditory canals normal 04/23/2017 None Full Exam - ENT Ears/Nose/Throat otoscopic exam Left tympanic membrane: air -fluid level 04/23/2017 None Full Exam - ENT Ears/Nose/Throat otoscopic exam Right tympanic membrane: bulging 04/23/2017 None Full Exam - ENT Ears/Nose/Throat otoscopic exam Right tympanic membrane: erythematous 04/23/2017 None Full Exam - ENT Ears/Nose/Throat lips/ teeth/gingiva Overall: benign lips 04/23/2017 None Full Exam - ENT Ears/Nose/Throat oropharynx Overall: oral mucosa clear 04/23/2017 None Full Exam - ENT Ears/Nose/Throat oropharynx Posterior Pharynx: clear post nasal drainage 04/23/2017 None Full Exam - ENT Ears/Nose/Throat oropharynx Posterior Pharynx: erythema 04/23/2017 None Full Exam - ENT Face and Head palpation Left maxillary sinus: tender 04/23/2017 None Full Exam - ENT Face and Head palpation Right maxillary sinus: tender 04/23/2017 None Full Exam - ENT Respiratory inspection Overall: normal rate None Full Exam - ENT Respiratory inspection Overall: no retractions 04/23/2017 None Full Exam - ENT Respiratory auscultation Overall: breath sounds clear bilaterally 04/23/2017 None Full Exam - ENT Cardiovascular auscultation of heart Overall: normal heart sounds 04/23/2017 None Full Exam - ENT Cardiovascular auscultation of heart Overall: regular rate 04/23/2017 None Full Exam - ENT Lymphatic palpation of lymph nodes Overall: posterior cervical chain benign 04/23/2017 None Full Exam - ENT Lymphatic palpation of lymph nodes Overall: anterior cervical chain benign 04/23/2017 None Full Exam - ENT Musculoskeletal gait and station Overall: normal gait 04/23/2017 None Full Exam - ENT Musculoskeletal gait and station Overall: normal station 04/23/2017 None Full Exam - ENT Musculoskeletal head and neck Overall: head atraumatic 04/23/2017 None Full Exam - ENT Neurologic mood and affect Overall: normal mood 04/23/2017 None Full Exam - ENT Neurologic mood and affect Overall: normal affect 04/23/2017 None Full Exam - ENT Neurologic orientation Overall: oriented to person, place and time 04/23/2017 None Full Exam - General 1994 Constitutional general appearance Overall: well developed 03/27/2017 None Full Exam - General 1994 Constitutional general appearance Overall: in no acute distress 03/27/2017 None Full Exam - General 1994 Constitutional general appearance Overall: well nourished 03/27/2017 None Full Exam - General 1994 Eyes conjunctiva /eyelids Overall: conjunctiva clear 03/27/2017 None Full Exam - General 1994 Eyes conjunctiva /eyelids Overall: eyelids normal 03/27/2017 None Full Exam - General 1994 Ears/Nose/Throat otoscopic exam Overall: external auditory canals clear 03/27/2017 None Full Exam - General 1994 Ears/Nose/Throat otoscopic exam Overall: tympanic membranes clear 03/27/2017 None Full Exam - General 1994 Ears/Nose/Throat lips/teeth/gingiva Overall: benign lips 03/27/2017 None Full Exam - General 1994 Ears/Nose/Throat oral cavity/pharynx/larynx Overall: oral mucosa clear 03/27/2017 None Full Exam - General 1994 Ears/Nose/Throat oral cavity/pharynx/larynx Posterior Pharynx: clear post nasal drainage 03/27/2017 None Full Exam - General 1994 Respiratory auscultation Overall: breath sounds clear bilaterally 03/27/2017 None Full Exam - General 1994 Respiratory auscultation Diffuse: diminished 03/27/2017 None Full Exam - General 1994 Respiratory respiratory effort/rhythm Overall: no retractions 03/27/2017 None Full Exam - General 1994 Respiratory respiratory effort/rhythm Overall: normal rate 03/27/2017 None Full Exam - General 1994 Cardiovascular auscultation of heart Overall: regular rate 03/27/2017 None Full Exam - General 1994 Cardiovascular auscultation of heart Overall: normal heart sounds 03/27/2017 None Full Exam - General 1994 Musculoskeletal head and neck Overall: head atraumatic 03/27/2017 None Full Exam - General 1994 Neurologic gait Overall: no ataxia, no unsteadiness 03/27/2017 None Full Exam - General 1994 Neurologic cranial nerves Overall: crainial nerves 2 - 12 grossly intact 03/27/2017 None Full Exam - General 1994 Psychiatric orientation/consciousness Overall: oriented to person, place and time 03/27/2017 None Full Exam - General 1994 Psychiatric mood and affect Overall: normal mood and affect 03/27/2017 None Full Exam - General 1994 Psychiatric appearance Overall: well-groomed, good eye contact 03/27/2017 None Full Exam - General 1994 Eyes conjunctiva /eyelids Overall: cornea clear 03/27/2017 None Full Exam - General 1994 Constitutional general appearance Overall: well developed 03/04/2017 None Full Exam - General 1994 Constitutional general appearance Overall: in no acute distress 03/04/2017 None Full Exam - General 1994 Constitutional general appearance Overall: well nourished 03/04/2017 None Full Exam - General 1994 Eyes conjunctiva /eyelids Overall: conjunctiva clear 03/04/2017 None Full Exam - General 1994 Eyes conjunctiva /eyelids Overall: eyelids normal 03/04/2017 None Full Exam - General 1994 Ears/Nose/Throat otoscopic exam Overall: external auditory canals clear 03/04/2017 None Full Exam - General 1994 Ears/Nose/Throat otoscopic exam Overall: tympanic membranes clear 03/04/2017 None Full Exam - General 1994 Ears/Nose/Throat lips/teeth/gingiva Overall: benign lips 03/04/2017 None Full Exam - General 1994 Ears/Nose/Throat oral cavity/pharynx/larynx Overall: oral mucosa clear 03/04/2017 None Full Exam - General 1994 Respiratory auscultation Overall: breath sounds clear bilaterally 03/04/2017 None Full Exam - General 1994 Respiratory auscultation Diffuse: diminished 03/04/2017 None Full Exam - General 1994 Respiratory respiratory effort/rhythm Overall: no retractions 03/04/2017 None Full Exam - General 1994 Respiratory respiratory effort/rhythm Overall: normal rate 03/04/2017 None Full Exam - General 1994 Cardiovascular auscultation of heart Overall: regular rate 03/04/2017 None Full Exam - General 1994 Cardiovascular auscultation of heart Overall: normal heart sounds 03/04/2017 None Full Exam - General 1994 Musculoskeletal head and neck Overall: head atraumatic 03/04/2017 None Full Exam - General 1994 Neurologic gait Overall: no ataxia, no unsteadiness 03/04/2017 None Full Exam - General 1994 Neurologic cranial nerves Overall: crainial nerves 2 - 12 grossly intact 03/04/2017 None Full Exam - General 1994 Psychiatric orientation/consciousness Overall: oriented to person, place and time 03/04/2017 None Full Exam - General 1994 Psychiatric mood and affect Overall: normal mood and affect 03/04/2017 None Full Exam - General 1994 Psychiatric appearance Overall: well-groomed, good eye contact 03/04/2017 None Full Exam - General 1994 Ears/Nose/Throat oral cavity/pharynx/larynx Posterior Pharynx: clear post nasal drainage 03/04/2017 None Full Exam - General 1994 Ears/Nose/Throat oral cavity/pharynx/larynx Oropharynx: erythema 03/04/2017 mild Full Exam - General 1994 Constitutional general appearance Overall: well developed 02/25/2017 None Full Exam - General 1994 Constitutional general appearance Overall: in no acute distress 02/25/2017 None Full Exam - General 1994 Constitutional general appearance Overall: well nourished 02/25/2017 None Full Exam - General 1994 Eyes conjunctiva /eyelids Overall: conjunctiva clear 02/25/2017 None Full Exam - General 1994 Eyes conjunctiva /eyelids Overall: eyelids normal 02/25/2017 None Full Exam - General 1994 Ears/Nose/Throat otoscopic exam Overall: external auditory canals clear 02/25/2017 None Full Exam - General 1994 Ears/Nose/Throat otoscopic exam Overall: tympanic membranes clear 02/25/2017 None Full Exam - General 1994 Ears/Nose/Throat lips/teeth/gingiva Overall: benign lips 02/25/2017 None Full Exam - General 1994 Ears/Nose/Throat oral cavity/pharynx/larynx Overall: oral mucosa clear 02/25/2017 None Full Exam - General 1994 Respiratory auscultation Overall: breath sounds clear bilaterally 02/25/2017 None Full Exam - General 1994 Respiratory auscultation Diffuse: diminished 02/25/2017 None Full Exam - General 1994 Respiratory respiratory effort/rhythm Overall: no retractions 02/25/2017 None Full Exam - General 1994 Respiratory respiratory effort/rhythm Overall: normal rate 02/25/2017 None Full Exam - General 1994 Cardiovascular auscultation of heart Overall: regular rate 02/25/2017 None Full Exam - General 1994 Cardiovascular auscultation of heart Overall: normal heart sounds 02/25/2017 None Full Exam - General 1994 Musculoskeletal head and neck Overall: head atraumatic 02/25/2017 None Full Exam - General 1994 Neurologic gait Overall: no ataxia, no unsteadiness 02/25/2017 None Full Exam - General 1994 Neurologic cranial nerves Overall: crainial nerves 2 - 12 grossly intact 02/25/2017 None Full Exam - General 1994 Psychiatric orientation/consciousness Overall: oriented to person, place and time 02/25/2017 None Full Exam - General 1994 Psychiatric mood and affect Overall: normal mood and affect 02/25/2017 None Full Exam - General 1994 Psychiatric appearance Overall: well-groomed, good eye contact 02/25/2017 None Full Exam - ENT Constitutional general appearance Overall: well nourished 02/20/2017 None Full Exam - ENT Constitutional general appearance Overall: well developed 02/20/2017 None Full Exam - ENT Constitutional general appearance Overall: in no acute distress 02/20/2017 None Full Exam - ENT Ears/Nose/Throat otoscopic exam Overall: external auditory canals normal 02/20/2017 None Full Exam - ENT Ears/Nose/Throat otoscopic exam Left tympanic membrane: air -fluid level 02/20/2017 None Full Exam - ENT Ears/Nose/Throat otoscopic exam Right tympanic membrane: air-fluid level 02/20/2017 None Full Exam - ENT Ears/Nose/Throat nasal mucosa, septum, turbinates Drainage: clear 02/20/2017 None Full Exam - ENT Ears/Nose/Throat nasal mucosa, septum, turbinates Drainage: yellow 02/20/2017 None Full Exam - ENT Ears/Nose/Throat lips/ teeth/gingiva Overall: benign lips 02/20/2017 None Full Exam - ENT Ears/Nose/Throat oropharynx Overall: oral mucosa clear 02/20/2017 None Full Exam - ENT Ears/Nose/Throat oropharynx Posterior Pharynx: clear post nasal drainage 02/20/2017 None Full Exam - ENT Face and Head palpation Left maxillary sinus: tender 02/20/2017 None Full Exam - ENT Face and Head palpation Right maxillary sinus: tender 02/20/2017 None Full Exam - ENT Respiratory inspection Overall: no retractions 02/20/2017 None Full Exam - ENT Respiratory inspection Overall: normal rate 04/2017 None Full Exam - ENT Respiratory auscultation Overall: breath sounds clear bilaterally 02/20/2017 None Full Exam - ENT Respiratory auscultation Diffuse: diminished None Full Exam - ENT Cardiovascular auscultation of heart Rate: normal rate 02/20/2017 None Full Exam - ENT Cardiovascular auscultation of heart Rhythm: regular rhythm 02/20/2017 None Full Exam - ENT Lymphatic palpation of lymph nodes Overall: shotty lymphadenopathy 02/20/2017 None Full Exam - ENT Neurologic mood and affect Overall: normal mood 02/20/2017 None Full Exam - ENT Neurologic mood and affect Overall: normal affect 02/20/2017 None Full Exam - ENT Neurologic orientation Overall: oriented to person, place and time 02/20/2017 None Full Exam - General 1994 Constitutional general appearance Overall: well developed 02/04/2017 None Full Exam - General 1994 Constitutional general appearance Overall: in no acute distress 02/04/2017 None Full Exam - General 1994 Constitutional general appearance Overall: well nourished 02/04/2017 None Full Exam - General 1994 Eyes conjunctiva /eyelids Overall: conjunctiva clear 02/04/2017 None Full Exam - General 1994 Eyes conjunctiva /eyelids Overall: eyelids normal 02/04/2017 None Full Exam - General 1994 Eyes pupils and irises Overall: pupils equal, round, reactive to light and accomodation 02/04/2017 None Full Exam - General 1994 Ears/Nose/Throat otoscopic exam Overall: tympanic membranes clear 02/04/2017 None Full Exam - General 1994 Ears/Nose/Throat otoscopic exam Overall: external auditory canals clear 02/04/2017 None Full Exam - General 1994 Ears/Nose/Throat oral cavity/pharynx/larynx Overall: oral mucosa clear 02/04/2017 None Full Exam - General 1994 Ears/Nose/Throat lips/teeth/gingiva Overall: benign lips 02/04/2017 None Full Exam - General 1994 Respiratory respiratory effort/rhythm Overall: normal rate 02/04/2017 None Full Exam - General 1994 Respiratory respiratory effort/rhythm Overall: no retractions 02/04/2017 None Full Exam - General 1994 Respiratory auscultation Overall: breath sounds clear bilaterally 02/04/2017 None Full Exam - General 1994 Respiratory auscultation Diffuse: diminished 02/04/2017 None Full Exam - General 1994 Cardiovascular auscultation of heart Overall: regular rate 02/04/2017 None Full Exam - General 1994 Cardiovascular auscultation of heart Overall: normal heart sounds 02/04/2017 None Full Exam - General 1994 Musculoskeletal head and neck Overall: head atraumatic 02/04/2017 None Full Exam - General 1994 Neurologic cranial nerves Overall: crainial nerves 2 - 12 grossly intact 02/04/2017 None Full Exam - General 1994 Neurologic gait Overall: no ataxia, no unsteadiness 02/04/2017 None Full Exam - General 1994 Psychiatric orientation/consciousness Overall: oriented to person, place and time 02/04/2017 None Full Exam - General 1994 Psychiatric mood and affect Overall: normal mood and affect 02/04/2017 None Full Exam - General 1994 Psychiatric appearance Overall: well-groomed, good eye contact 02/04/2017 None Full Exam - General 1994 Constitutional general appearance Overall: well developed 01/28/2017 None Full Exam - General 1994 Constitutional general appearance Overall: well nourished 01/28/2017 None Full Exam - General 1994 Eyes conjunctiva /eyelids Overall: conjunctiva clear 01/28/2017 None Full Exam - General 1994 Eyes conjunctiva /eyelids Overall: eyelids normal 01/28/2017 None Full Exam - General 1994 Eyes pupils and irises Overall: pupils equal, round, reactive to light and accomodation 01/28/2017 None Full Exam - General 1994 Ears/Nose/Throat otoscopic exam Overall: external auditory canals clear 01/28/2017 None Full Exam - General 1994 Ears/Nose/Throat otoscopic exam Overall: tympanic membranes clear 01/28/2017 None Full Exam - General 1994 Ears/Nose/Throat lips/teeth/gingiva Overall: benign lips 01/28/2017 None Full Exam - General 1994 Ears/Nose/Throat oral cavity/pharynx/larynx Overall: oral mucosa clear 01/28/2017 None Full Exam - General 1994 Respiratory auscultation Overall: breath sounds clear bilaterally 01/28/2017 None Full Exam - General 1994 Respiratory auscultation Diffuse: diminished 01/28/2017 None Full Exam - General 1994 Respiratory respiratory effort/rhythm Overall: no retractions 01/28/2017 None Full Exam - General 1994 Respiratory respiratory effort/rhythm Overall: normal rate 01/28/2017 None Full Exam - General 1994 Cardiovascular extremities Overall: no clubbing 01/28/2017 None Full Exam - General 1994 Cardiovascular auscultation of heart Overall: regular rate 01/28/2017 None Full Exam - General 1994 Cardiovascular auscultation of heart Overall: normal heart sounds 01/28/2017 None Full Exam - General 1994 Abdomen abdominal exam Overall: normal bowel sounds 01/28/2017 None Full Exam - General 1994 Musculoskeletal gait and station Overall: normal gait 01/28/2017 None Full Exam - General 1994 Musculoskeletal gait and station Overall: normal station 01/28/2017 None Full Exam - General 1994 Neurologic cranial nerves Overall: crainial nerves 2 - 12 grossly intact 01/28/2017 None Full Exam - General 1994 Psychiatric orientation/consciousness Overall: oriented to person, place and time 01/28/2017 None Full Exam - General 1994 Psychiatric mood and affect Overall: normal mood and affect 01/28/2017 None Full Exam - General 1994 Constitutional general appearance Evidence of Distress: tearful 01/28/2017 None Full Exam - General 1994 Musculoskeletal head and neck Overall: head atraumatic 01/28/2017 None Full Exam - General 1994 Integument inspection of skin Location: right arm 01/28/2017 None Full Exam - General 1994 Integument inspection of skin Rash/Lesions: patch 01/28/2017 None Full Exam - General 1994 Integument inspection of skin Pigmentation: erythematous 01/28/2017 small irritation from bug bite Full Exam - General 1994 Psychiatric appearance Overall: well-groomed, good eye contact 01/28/2017 None Full Exam - General 1994 Constitutional general appearance Overall: well developed 12/13/2016 None Full Exam - General 1994 Constitutional general appearance Overall: in no acute distress 12/13/2016 None Full Exam - General 1994 Constitutional general appearance Overall: well nourished 12/13/2016 None Full Exam - General 1994 Eyes conjunctiva /eyelids Overall: conjunctiva clear 12/13/2016 None Full Exam - General 1994 Eyes conjunctiva /eyelids Overall: eyelids normal 12/13/2016 None Full Exam - General 1994 Eyes pupils and irises Overall: pupils equal, round, reactive to light and accomodation 12/13/2016 None Full Exam - General 1994 Ears/Nose/Throat otoscopic exam Overall: external auditory canals clear 12/13/2016 None Full Exam - General 1994 Ears/Nose/Throat lips/teeth/gingiva Overall: benign lips 12/13/2016 None Full Exam - General 1994 Ears/Nose/Throat oral cavity/pharynx/larynx Overall: oral mucosa clear 12/13/2016 None Full Exam - General 1994 Respiratory auscultation Overall: breath sounds clear bilaterally 12/13/2016 None Full Exam - General 1994 Respiratory respiratory effort/rhythm Overall: no retractions 12/13/2016 None Full Exam - General 1994 Respiratory respiratory effort/rhythm Overall: normal rate 12/13/2016 None Full Exam - General 1994 Cardiovascular extremities Overall: no clubbing 12/13/2016 None Full Exam - General 1994 Cardiovascular auscultation of heart Overall: regular rate 12/13/2016 None Full Exam - General 1994 Cardiovascular auscultation of heart Overall: normal heart sounds 12/13/2016 None Full Exam - General 1994 Musculoskeletal gait and station Overall: normal gait 12/13/2016 None Full Exam - General 1994 Musculoskeletal gait and station Overall: normal station 12/13/2016 None Full Exam - General 1994 Neurologic cranial nerves Overall: crainial nerves 2 - 12 grossly intact 12/13/2016 None Full Exam - General 1994 Psychiatric orientation/consciousness Overall: oriented to person, place and time 12/13/2016 None Full Exam - General 1994 Psychiatric mood and affect Overall: normal mood and affect 12/13/2016 None Full Exam - General 1994 Ears/Nose/Throat otoscopic exam Overall: tympanic membranes clear 12/13/2016 None Full Exam - General 1994 Respiratory auscultation Diffuse: diminished 12/13/2016 None Full Exam - General 1994 Integument inspection of skin Location: face 12/13/2016 butterfly rash Full Exam - General 1994 Abdomen abdominal exam Overall: normal bowel sounds 12/13/2016 None Full Exam - General 1994 Abdomen abdominal exam Lower quadrant: tender to palpation 12/13/2016 None Full Exam - General 1994 Abdomen abdominal exam Lower quadrant: dull pain 12/13/2016 None Full Exam - General 1994 Abdomen abdominal exam Lower quadrant: soft 12/13/2016 None Full Exam - General 1994 Constitutional general appearance Overall: well developed 10/21/2016 None Full Exam - General 1994 Constitutional general appearance Overall: in no acute distress 10/21/2016 None Full Exam - General 1994 Constitutional general appearance Overall: well nourished 10/21/2016 None Full Exam - General 1994 Eyes conjunctiva /eyelids Overall: conjunctiva clear 10/21/2016 None Full Exam - General 1994 Eyes conjunctiva /eyelids Overall: cornea clear 10/21/2016 None Full Exam - General 1994 Eyes conjunctiva /eyelids Overall: eyelids normal 10/21/2016 None Full Exam - General 1994 Eyes pupils and irises Overall: pupils equal, round, reactive to light and accomodation 10/21/2016 None Full Exam - General 1994 Ears/Nose/Throat otoscopic exam Overall: external auditory canals clear 10/21/2016 None Full Exam - General 1994 Ears/Nose/Throat otoscopic exam Tympanic membrane: air- fluid level 10/21/2016 None Full Exam - General 1994 Ears/Nose/Throat internal nose Sinus tenderness: left maxillary 10/21/2016 None Full Exam - General 1994 Ears/Nose/Throat internal nose Sinus tenderness: right maxillary 10/21/2016 None Full Exam - General 1994 Ears/Nose/Throat lips/teeth/gingiva Overall: benign lips 10/21/2016 None Full Exam - General 1994 Ears/Nose/Throat lips/teeth/gingiva Overall: normal dentition 10/21/2016 None Full Exam - General 1994 Ears/Nose/Throat oral cavity/pharynx/larynx Overall: oral mucosa clear 10/21/2016 None Full Exam - General 1994 Ears/Nose/Throat oral cavity/pharynx/larynx Posterior Pharynx: clear post nasal drainage 10/21/2016 None Full Exam - General 1994 Ears/Nose/Throat oral cavity/pharynx/larynx Oropharynx: erythema 10/21/2016 None Full Exam - General 1994 Respiratory auscultation Overall: breath sounds clear bilaterally 10/21/2016 None Full Exam - General 1994 Respiratory respiratory effort/rhythm Overall: no retractions 10/21/2016 None Full Exam - General 1994 Respiratory respiratory effort/rhythm Overall: normal rate 10/21/2016 None Full Exam - General 1994 Cardiovascular extremities Overall: no clubbing 10/21/2016 None Full Exam - General 1994 Cardiovascular auscultation of heart Overall: regular rate 10/21/2016 None Full Exam - General 1994 Cardiovascular auscultation of heart Overall: normal heart sounds 10/21/2016 None Full Exam - General 1994 Lymphatic neck nodes Overall: shotty lymphadenopathy 10/21/2016 None Full Exam - General 1994 Musculoskeletal gait and station Overall: normal gait 10/21/2016 None Full Exam - General 1994 Musculoskeletal gait and station Overall: normal station 10/21/2016 None Full Exam - General 1994 Integument inspection of skin Overall: no rash, lesions 10/21/2016 None Full Exam - General 1994 Neurologic cranial nerves Overall: crainial nerves 2 - 12 grossly intact 10/21/2016 None Full Exam - General 1994 Psychiatric orientation/consciousness Overall: oriented to person, place and time 10/21/2016 None Full Exam - General 1994 Psychiatric mood and affect Overall: normal mood and affect 10/21/2016 None Full Exam - General 1994 Constitutional general appearance Overall: well developed 09/30/2016 None Full Exam - General 1994 Constitutional general appearance Overall: in no acute distress 09/30/2016 None Full Exam - General 1994 Constitutional general appearance Overall: well nourished 09/30/2016 None Full Exam - General 1994 Eyes conjunctiva /eyelids Overall: conjunctiva clear 09/30/2016 None Full Exam - General 1994 Eyes conjunctiva /eyelids Overall: eyelids normal 09/30/2016 None Full Exam - General 1994 Ears/Nose/Throat lips/teeth/gingiva Overall: benign lips 09/30/2016 None Full Exam - General 1994 Ears/Nose/Throat oral cavity/pharynx/larynx Overall: oral mucosa clear 09/30/2016 None Full Exam - General 1994 Respiratory respiratory effort/rhythm Overall: no retractions 09/30/2016 None Full Exam - General 1994 Respiratory respiratory effort/rhythm Overall: normal rate 09/30/2016 None Full Exam - General 1994 Respiratory auscultation Overall: breath sounds clear bilaterally 09/30/2016 None Full Exam - General 1994 Cardiovascular auscultation of heart Overall: regular rate 09/30/2016 None Full Exam - General 1994 Cardiovascular auscultation of heart Overall: normal heart sounds 09/30/2016 None Full Exam - General 1994 Neurologic cranial nerves Overall: crainial nerves 2 - 12 grossly intact 09/30/2016 None Full Exam - General 1994 Psychiatric orientation/consciousness Overall: oriented to person, place and time 09/30/2016 None Full Exam - General 1994 Psychiatric mood and affect Mood: anxious 09/30/2016 None Full Exam - General 1994 Psychiatric mood and affect Affect: mood congruent 09/30/2016 None Full Exam - General 1994 Psychiatric appearance Overall: well-groomed, good eye contact 09/30/2016 None Full Exam - General 1994 Constitutional general appearance Overall: well developed 09/17/2016 None Full Exam - General 1994 Constitutional general appearance Overall: well nourished 09/17/2016 None Full Exam - General 1994 Constitutional general appearance Evidence of Distress: anxious 09/17/2016 None Full Exam - General 1994 Eyes conjunctiva /eyelids Overall: conjunctiva clear 09/17/2016 None Full Exam - General 1994 Eyes conjunctiva /eyelids Overall: eyelids normal 09/17/2016 None Full Exam - General 1994 Ears/Nose/Throat otoscopic exam Overall: external auditory canals clear 09/17/2016 None Full Exam - General 1994 Ears/Nose/Throat otoscopic exam Overall: tympanic membranes clear 09/17/2016 None Full Exam - General 1994 Ears/Nose/Throat lips/teeth/gingiva Overall: benign lips 09/17/2016 None Full Exam - General 1994 Ears/Nose/Throat oral cavity/pharynx/larynx Overall: oral mucosa clear 09/17/2016 None Full Exam - General 1994 Respiratory auscultation Overall: breath sounds clear bilaterally 09/17/2016 None Full Exam - General 1994 Respiratory respiratory effort/rhythm Overall: no retractions 09/17/2016 None Full Exam - General 1994 Respiratory respiratory effort/rhythm Overall: normal rate 09/17/2016 None Full Exam - General 1994 Cardiovascular auscultation of heart Overall: regular rate 09/17/2016 None Full Exam - General 1994 Cardiovascular auscultation of heart Overall: normal heart sounds 09/17/2016 None Full Exam - General 1994 Neurologic cranial nerves Overall: crainial nerves 2 - 12 grossly intact 09/17/2016 None Full Exam - General 1994 Psychiatric orientation/consciousness Overall: oriented to person, place and time 09/17/2016 None Full Exam - General 1994 Psychiatric mood and affect Mood: anxious 09/17/2016 None Full Exam - General 1994 Psychiatric mood and affect Mood: flat 09/17/2016 None Full Exam - General 1994 Psychiatric appearance Overall: well-groomed, good eye contact 09/17/2016 None Full Exam - ENT Constitutional general appearance Overall: well nourished 07/15/2016 None Full Exam - ENT Constitutional general appearance Overall: well developed 07/15/2016 None Full Exam - ENT Constitutional general appearance Overall: in no acute distress 07/15/2016 None Full Exam - ENT Ears/Nose/Throat otoscopic exam Overall: external auditory canals normal 07/15/2016 None Full Exam - ENT Ears/Nose/Throat nasal mucosa, septum, turbinates Drainage: clear 07/15/2016 None Full Exam - ENT Ears/Nose/Throat nasal mucosa, septum, turbinates Drainage: yellow 07/15/2016 None Full Exam - ENT Ears/Nose/Throat lips/ teeth/gingiva Overall: benign lips 07/15/2016 None Full Exam - ENT Ears/Nose/Throat oropharynx Overall: oral mucosa clear 07/15/2016 None Full Exam - ENT Ears/Nose/Throat oropharynx Posterior Pharynx: clear post nasal drainage 07/15/2016 None Full Exam - ENT Respiratory inspection Overall: no retractions 07/15/2016 None Full Exam - ENT Respiratory inspection Overall: normal rate 10/2016 None Full Exam - ENT Respiratory auscultation Overall: breath sounds clear bilaterally 07/15/2016 None Full Exam - ENT Respiratory auscultation Diffuse: diminished None Full Exam - ENT Cardiovascular auscultation of heart Rate: normal rate 07/15/2016 None Full Exam - ENT Cardiovascular auscultation of heart Rhythm: regular rhythm 07/15/2016 None Full Exam - ENT Lymphatic palpation of lymph nodes Overall: shotty lymphadenopathy 07/15/2016 None Full Exam - ENT Neurologic mood and affect Overall: normal mood 07/15/2016 None Full Exam - ENT Neurologic mood and affect Overall: normal affect 07/15/2016 None Full Exam - ENT Neurologic orientation Overall: oriented to person, place and time 07/15/2016 None Full Exam - ENT Ears/Nose/Throat otoscopic exam Overall: tympanic membranes normal 07/15/2016 None Full Exam - ENT Constitutional general appearance Overall: well nourished 07/04/2016 None Full Exam - ENT Constitutional general appearance Overall: well developed 07/04/2016 None Full Exam - ENT Constitutional general appearance Overall: in no acute distress 07/04/2016 None Full Exam - ENT Ears/Nose/Throat otoscopic exam Overall: external auditory canals normal 07/04/2016 None Full Exam - ENT Ears/Nose/Throat otoscopic exam Left tympanic membrane: air -fluid level 07/04/2016 None Full Exam - ENT Ears/Nose/Throat lips/ teeth/gingiva Overall: benign lips 07/04/2016 None Full Exam - ENT Ears/Nose/Throat oropharynx Overall: oral mucosa clear 07/04/2016 None Full Exam - ENT Ears/Nose/Throat oropharynx Posterior Pharynx: clear post nasal drainage 07/04/2016 None Full Exam - ENT Respiratory inspection Overall: no retractions 07/04/2016 None Full Exam - ENT Respiratory inspection Overall: normal rate None Full Exam - ENT Respiratory auscultation Overall: breath sounds clear bilaterally 07/04/2016 None Full Exam - ENT Respiratory auscultation Diffuse: diminished None Full Exam - ENT Cardiovascular auscultation of heart Rate: normal rate 07/04/2016 None Full Exam - ENT Cardiovascular auscultation of heart Rhythm: regular rhythm 07/04/2016 None Full Exam - ENT Lymphatic palpation of lymph nodes Overall: shotty lymphadenopathy 07/04/2016 None Full Exam - ENT Neurologic mood and affect Overall: normal mood 07/04/2016 None Full Exam - ENT Neurologic mood and affect Overall: normal affect 07/04/2016 None Full Exam - ENT Neurologic orientation Overall: oriented to person, place and time 07/04/2016 None Full Exam - ENT Ears/Nose/Throat otoscopic exam Right tympanic membrane: air-fluid level 07/04/2016 None Full Exam - ENT Face and Head palpation Right maxillary sinus: tender 07/04/2016 None Full Exam - ENT Face and Head palpation Left maxillary sinus: tender 07/04/2016 None Full Exam - ENT Ears/Nose/Throat nasal mucosa, septum, turbinates Drainage: clear 07/04/2016 None Full Exam - ENT Ears/Nose/Throat nasal mucosa, septum, turbinates Drainage: yellow 07/04/2016 None Full Exam - General [facility] Constitutional general appearance Evidence of Distress: in acute distress 07/01/2016 None Full Exam - General 1994 Constitutional general appearance Evidence of Distress: in distress secondary to pain 07/01/2016 None Full Exam - General 1994 Eyes conjunctiva /eyelids Overall: conjunctiva clear 07/01/2016 None Full Exam - General 1994 Eyes conjunctiva /eyelids Overall: eyelids normal 07/01/2016 None Full Exam - General 1994 Ears/Nose/Throat otoscopic exam Overall: external auditory canals clear 07/01/2016 None Full Exam - General 1994 Ears/Nose/Throat otoscopic exam Overall: tympanic membranes clear 07/01/2016 None Full Exam - General 1994 Ears/Nose/Throat lips/teeth/gingiva Overall: benign lips 07/01/2016 None Full Exam - General 1994 Ears/Nose/Throat oral cavity/pharynx/larynx Overall: oral mucosa clear 07/01/2016 None Full Exam - General 1994 Respiratory auscultation Overall: breath sounds clear bilaterally 07/01/2016 None Full Exam - General 1994 Cardiovascular auscultation of heart Overall: regular rate 07/01/2016 None Full Exam - General 1994 Cardiovascular auscultation of heart Overall: normal heart sounds 07/01/2016 None Full Exam - General 1994 Integument inspection of skin Overall: no rash, lesions 07/01/2016 None Full Exam - General 1994 Psychiatric orientation/consciousness Overall: oriented to person, place and time 07/01/2016 None Full Exam - General 1994 Psychiatric mood and affect Mood: anxious 07/01/2016 None Full Exam - ENT Constitutional general appearance Overall: well nourished 06/05/2016 None Full Exam - ENT Constitutional general appearance Overall: well developed 06/05/2016 None Full Exam - ENT Ears/Nose/Throat otoscopic exam Overall: external auditory canals normal 06/05/2016 None Full Exam - ENT Ears/Nose/Throat otoscopic exam Right tympanic membrane: bulging 06/05/2016 None Full Exam - ENT Ears/Nose/Throat lips/ teeth/gingiva Overall: benign lips 06/05/2016 None Full Exam - ENT Ears/Nose/Throat oropharynx Overall: oral mucosa clear 06/05/2016 None Full Exam - ENT Ears/Nose/Throat oropharynx Posterior Pharynx: clear post nasal drainage 06/05/2016 None Full Exam - ENT Ears/Nose/Throat oropharynx Posterior Pharynx: erythema 06/05/2016 None Full Exam - ENT Respiratory inspection Overall: no retractions 06/05/2016 None Full Exam - ENT Respiratory inspection Overall: normal rate None Full Exam - ENT Respiratory auscultation Overall: breath sounds clear bilaterally 06/05/2016 None Full Exam - ENT Respiratory auscultation Diffuse: diminished None Full Exam - ENT Cardiovascular auscultation of heart Rate: normal rate 06/05/2016 None Full Exam - ENT Cardiovascular auscultation of heart Rhythm: regular rhythm 06/05/2016 None Full Exam - ENT Lymphatic palpation of lymph nodes Overall: shotty lymphadenopathy 06/05/2016 None Full Exam - ENT Neurologic mood and affect Overall: normal mood 06/05/2016 None Full Exam - ENT Neurologic mood and affect Overall: normal affect 06/05/2016 None Full Exam - ENT Neurologic orientation Overall: oriented to person, place and time 06/05/2016 None Full Exam - ENT Constitutional general appearance Overall: in no acute distress 06/05/2016 None Full Exam - ENT Ears/Nose/Throat otoscopic exam Left tympanic membrane: air -fluid level 06/05/2016 None Full Exam - ENT Constitutional general appearance Overall: well nourished 04/02/2016 None Full Exam - ENT Constitutional general appearance Overall: well developed 04/02/2016 None Full Exam - ENT Constitutional general appearance Overall: in no acute distress 04/02/2016 None Full Exam - ENT Ears/Nose/Throat otoscopic exam Left tympanic membrane: air -fluid level 04/02/2016 None Full Exam - ENT Ears/Nose/Throat otoscopic exam Right tympanic membrane: air-fluid level 04/02/2016 None Full Exam - ENT Ears/Nose/Throat lips/ teeth/gingiva Overall: benign lips 04/02/2016 None Full Exam - ENT Ears/Nose/Throat oropharynx Overall: oral mucosa clear 04/02/2016 None Full Exam - ENT Ears/Nose/Throat oropharynx Posterior Pharynx: clear post nasal drainage 04/02/2016 None Full Exam - ENT Respiratory inspection Overall: no retractions 04/02/2016 None Full Exam - ENT Respiratory inspection Overall: normal rate None Full Exam - ENT Cardiovascular auscultation of heart Rate: normal rate 04/02/2016 None Full Exam - ENT Cardiovascular auscultation of heart Rhythm: regular rhythm 04/02/2016 None Full Exam - ENT Lymphatic palpation of lymph nodes Overall: anterior cervical chain benign 04/02/2016 None Full Exam - ENT Lymphatic palpation of lymph nodes Overall: posterior cervical chain benign 04/02/2016 None Full Exam - ENT Neurologic mood and affect Overall: normal mood 04/02/2016 None Full Exam - ENT Neurologic mood and affect Overall: normal affect 04/02/2016 None Full Exam - ENT Neurologic orientation Overall: oriented to person, place and time 04/02/2016 None Full Exam - ENT Ears/Nose/Throat otoscopic exam Left external auditory canal: partial cerumen occlusion 04/02/2016 None Full Exam - ENT Ears/Nose/Throat otoscopic exam Right external auditory canal: partial cerumen occlusion 04/02/2016 None Full Exam - ENT Respiratory auscultation Overall: breath sounds clear bilaterally 04/02/2016 None Full Exam - ENT Respiratory auscultation Diffuse: diminished None Full Exam - ENT Constitutional general appearance Overall: well nourished 03/22/2016 None Full Exam - ENT Constitutional general appearance Overall: well developed 03/22/2016 None Full Exam - ENT Ears/Nose/Throat otoscopic exam Overall: external auditory canals normal 03/22/2016 None Full Exam - ENT Ears/Nose/Throat otoscopic exam Right tympanic membrane: erythematous 03/22/2016 None Full Exam - ENT Ears/Nose/Throat otoscopic exam Right tympanic membrane: bulging 03/22/2016 None Full Exam - ENT Ears/Nose/Throat otoscopic exam Left tympanic membrane: erythematous 03/22/2016 None Full Exam - ENT Ears/Nose/Throat otoscopic exam Left tympanic membrane: bulging 03/22/2016 None Full Exam - ENT Ears/Nose/Throat lips/ teeth/gingiva Overall: benign lips 03/22/2016 None Full Exam - ENT Ears/Nose/Throat oropharynx Overall: oral mucosa clear 03/22/2016 None Full Exam - ENT Ears/Nose/Throat oropharynx Posterior Pharynx: erythema 03/22/2016 None Full Exam - ENT Ears/Nose/Throat oropharynx Posterior Pharynx: clear post nasal drainage 03/22/2016 None Full Exam - ENT Face and Head palpation Right maxillary sinus: tender 03/22/2016 None Full Exam - ENT Face and Head palpation Left maxillary sinus: tender 03/22/2016 None Full Exam - ENT Respiratory inspection Overall: no retractions 03/22/2016 None Full Exam - ENT Respiratory inspection Overall: normal rate 03/2016 None Full Exam - ENT Respiratory auscultation Diffuse: diminished None Full Exam - ENT Respiratory auscultation Overall: breath sounds clear bilaterally 03/22/2016 None Full Exam - ENT Cardiovascular auscultation of heart Rate: normal rate 03/22/2016 None Full Exam - ENT Cardiovascular auscultation of heart Rhythm: regular rhythm 03/22/2016 None Full Exam - ENT Lymphatic palpation of lymph nodes Overall: shotty lymphadenopathy 03/22/2016 None Full Exam - ENT Neurologic mood and affect Overall: normal mood 03/22/2016 None Full Exam - ENT Neurologic mood and affect Overall: normal affect 03/22/2016 None Full Exam - ENT Neurologic orientation Overall: oriented to person, place and time 03/22/2016 None Full Exam - General 1994 Constitutional general appearance Overall: well developed 03/05/2016 None Full Exam - General 1994 Constitutional general appearance Overall: in no acute distress 03/05/2016 None Full Exam - General 1994 Constitutional general appearance Overall: well nourished 03/05/2016 None Full Exam - General 1994 Eyes conjunctiva /eyelids Overall: conjunctiva clear 03/05/2016 None Full Exam - General 1994 Eyes conjunctiva /eyelids Overall: cornea clear 03/05/2016 None Full Exam - General 1994 Eyes conjunctiva /eyelids Overall: eyelids normal 03/05/2016 None Full Exam - General 1994 Ears/Nose/Throat lips/teeth/gingiva Overall: benign lips 03/05/2016 None Full Exam - General 1994 Ears/Nose/Throat oral cavity/pharynx/larynx Overall: oral mucosa clear 03/05/2016 None Full Exam - General 1994 Respiratory auscultation Overall: breath sounds clear bilaterally 03/05/2016 None Full Exam - General 1994 Respiratory respiratory effort/rhythm Overall: no retractions 03/05/2016 None Full Exam - General 1994 Respiratory respiratory effort/rhythm Overall: normal rate 03/05/2016 None Full Exam - General 1994 Cardiovascular auscultation of heart Overall: regular rate 03/05/2016 None Full Exam - General 1994 Cardiovascular auscultation of heart Overall: normal heart sounds 03/05/2016 None Full Exam - General 1994 Neurologic cranial nerves Overall: crainial nerves 2 - 12 grossly intact 03/05/2016 None Full Exam - General 1994 Neurologic gait Overall: no ataxia, no unsteadiness 03/05/2016 None Full Exam - General 1994 Psychiatric orientation/consciousness Overall: oriented to person, place and time 03/05/2016 None Full Exam - General 1994 Psychiatric mood and affect Overall: normal mood and affect 03/05/2016 None Full Exam - General 1994 Psychiatric appearance Overall: well-groomed, good eye contact 03/05/2016 None Full Exam - General 1994 Constitutional general appearance Overall: well developed 01/29/2016 None Full Exam - General 1994 Constitutional general appearance Overall: in no acute distress 01/29/2016 None Full Exam - General 1994 Constitutional general appearance Overall: well nourished 01/29/2016 None Full Exam - General 1994 Eyes conjunctiva /eyelids Overall: conjunctiva clear 01/29/2016 None Full Exam - General 1994 Eyes conjunctiva /eyelids Overall: cornea clear 01/29/2016 None Full Exam - General 1994 Eyes conjunctiva /eyelids Overall: eyelids normal 01/29/2016 None Full Exam - General 1994 Eyes pupils and irises Overall: pupils equal, round, reactive to light and accomodation 01/29/2016 None Full Exam - General 1994 Ears/Nose/Throat otoscopic exam Overall: external auditory canals clear 01/29/2016 None Full Exam - General 1994 Ears/Nose/Throat otoscopic exam Tympanic membrane: air- fluid level 01/29/2016 None Full Exam - General 1994 Ears/Nose/Throat internal nose Sinus tenderness: left maxillary 01/29/2016 None Full Exam - General 1994 Ears/Nose/Throat internal nose Sinus tenderness: right maxillary 01/29/2016 None Full Exam - General 1994 Ears/Nose/Throat lips/teeth/gingiva Overall: benign lips 01/29/2016 None Full Exam - General 1994 Ears/Nose/Throat lips/teeth/gingiva Overall: normal dentition 01/29/2016 None Full Exam - General 1994 Ears/Nose/Throat oral cavity/pharynx/larynx Overall: oral mucosa clear 01/29/2016 None Full Exam - General 1994 Ears/Nose/Throat oral cavity/pharynx/larynx Posterior Pharynx: clear post nasal drainage 01/29/2016 None Full Exam - General 1994 Ears/Nose/Throat oral cavity/pharynx/larynx Oropharynx: erythema 01/29/2016 None Full Exam - General 1994 Respiratory auscultation Overall: breath sounds clear bilaterally 01/29/2016 None Full Exam - General 1994 Respiratory respiratory effort/rhythm Overall: no retractions 01/29/2016 None Full Exam - General 1994 Respiratory respiratory effort/rhythm Overall: normal rate 01/29/2016 None Full Exam - General 1994 Cardiovascular extremities Overall: no clubbing 01/29/2016 None Full Exam - General 1994 Cardiovascular auscultation of heart Overall: regular rate 01/29/2016 None Full Exam - General 1994 Cardiovascular auscultation of heart Overall: normal heart sounds 01/29/2016 None Full Exam - General 1994 Musculoskeletal gait and station Overall: normal gait 01/29/2016 None Full Exam - General 1994 Musculoskeletal gait and station Overall: normal station 01/29/2016 None Full Exam - General 1994 Integument inspection of skin Overall: no rash, lesions 01/29/2016 None Full Exam - General 1994 Neurologic cranial nerves Overall: crainial nerves 2 - 12 grossly intact 01/29/2016 None Full Exam - General 1994 Psychiatric orientation/consciousness Overall: oriented to person, place and time 01/29/2016 None Full Exam - General 1994 Psychiatric mood and affect Overall: normal mood and affect 01/29/2016 None Full Exam - General 1994 Lymphatic neck nodes Overall: shotty lymphadenopathy 01/29/2016 None Full Exam - General 1994 Constitutional general appearance Overall: well developed 12/11/2015 None Full Exam - General 1994 Constitutional general appearance Overall: in no acute distress 12/11/2015 None Full Exam - General 1994 Constitutional general appearance Overall: well nourished 12/11/2015 None Full Exam - General 1994 Eyes conjunctiva /eyelids Overall: conjunctiva clear 12/11/2015 None Full Exam - General 1994 Eyes conjunctiva /eyelids Overall: cornea clear 12/11/2015 None Full Exam - General 1994 Eyes conjunctiva /eyelids Overall: eyelids normal 12/11/2015 None Full Exam - General 1994 Eyes pupils and irises Overall: pupils equal, round, reactive to light and accomodation 12/11/2015 None Full Exam - General 1994 Ears/Nose/Throat otoscopic exam Overall: external auditory canals clear 12/11/2015 None Full Exam - General 1994 Ears/Nose/Throat otoscopic exam Overall: tympanic membranes clear 12/11/2015 None Full Exam - General 1994 Ears/Nose/Throat oral cavity/pharynx/larynx Overall: oral mucosa clear 12/11/2015 None Full Exam - General 1994 Respiratory auscultation Overall: breath sounds clear bilaterally 12/11/2015 None Full Exam - General 1994 Respiratory respiratory effort/rhythm Overall: no retractions 12/11/2015 None Full Exam - General 1994 Respiratory respiratory effort/rhythm Overall: normal rate 12/11/2015 None Full Exam - General 1994 Cardiovascular extremities Overall: no clubbing 12/11/2015 None Full Exam - General 1994 Cardiovascular auscultation of heart Overall: regular rate 12/11/2015 None Full Exam - General 1994 Cardiovascular auscultation of heart Overall: normal heart sounds 12/11/2015 None Full Exam - General 1994 Cardiovascular auscultation of heart Overall: no murmurs 12/11/2015 None Full Exam - General 1994 Musculoskeletal gait and station Overall: normal gait 12/11/2015 None Full Exam - General 1994 Musculoskeletal gait and station Overall: normal station 12/11/2015 None Full Exam - General 1994 Integument inspection of skin Overall: no rash, lesions 12/11/2015 None Full Exam - General 1994 Neurologic cranial nerves Overall: crainial nerves 2 - 12 grossly intact 12/11/2015 None Full Exam - General 1994 Psychiatric orientation/consciousness Overall: oriented to person, place and time 12/11/2015 None Full Exam - General 1994 Constitutional general appearance Overall: well developed 11/09/2015 None Full Exam - General 1994 Constitutional general appearance Overall: in no acute distress 11/09/2015 None Full Exam - General 1994 Constitutional general appearance Overall: well nourished 11/09/2015 None Full Exam - General 1994 Eyes conjunctiva /eyelids Overall: conjunctiva clear 11/09/2015 None Full Exam - General 1994 Eyes conjunctiva /eyelids Overall: cornea clear 11/09/2015 None Full Exam - General 1994 Eyes conjunctiva /eyelids Overall: eyelids normal 11/09/2015 None Full Exam - General 1994 Eyes pupils and irises Overall: pupils equal, round, reactive to light and accomodation 11/09/2015 None Full Exam - General 1994 Ears/Nose/Throat otoscopic exam Overall: external auditory canals clear 11/09/2015 None Full Exam - General 1994 Ears/Nose/Throat oral cavity/pharynx/larynx Overall: oral mucosa clear 11/09/2015 None Full Exam - General 1994 Respiratory auscultation Overall: breath sounds clear bilaterally 11/09/2015 None Full Exam - General 1994 Respiratory respiratory effort/rhythm Overall: no retractions 11/09/2015 None Full Exam - General 1994 Respiratory respiratory effort/rhythm Overall: normal rate 11/09/2015 None Full Exam - General 1994 Cardiovascular extremities Overall: no clubbing 11/09/2015 None Full Exam - General 1994 Cardiovascular auscultation of heart Overall: regular rate 11/09/2015 None Full Exam - General 1994 Cardiovascular auscultation of heart Overall: normal heart sounds 11/09/2015 None Full Exam - General 1994 Musculoskeletal gait and station Overall: normal gait 11/09/2015 None Full Exam - General 1994 Musculoskeletal gait and station Overall: normal station 11/09/2015 None Full Exam - General 1994 Integument inspection of skin Overall: no rash, lesions 11/09/2015 None Full Exam - General 1994 Neurologic cranial nerves Overall: crainial nerves 2 - 12 grossly intact 11/09/2015 None Full Exam - General 1994 Psychiatric orientation/consciousness Overall: oriented to person, place and time 11/09/2015 None Full Exam - General 1994 Ears/Nose/Throat otoscopic exam Tympanic membrane: air- fluid level 11/09/2015 None Full Exam - General 1994 Ears/Nose/Throat lips/teeth/gingiva Overall: benign lips 11/09/2015 None Full Exam - General 1994 Ears/Nose/Throat lips/teeth/gingiva Overall: normal dentition 11/09/2015 None Full Exam - General 1994 Ears/Nose/Throat internal nose Sinus tenderness: left maxillary 11/09/2015 None Full Exam - General 1994 Ears/Nose/Throat internal nose Sinus tenderness: right maxillary 11/09/2015 None Full Exam - General 1994 Ears/Nose/Throat oral cavity/pharynx/larynx Posterior Pharynx: clear post nasal drainage 11/09/2015 None Full Exam - General 1994 Ears/Nose/Throat oral cavity/pharynx/larynx Oropharynx: erythema 11/09/2015 None Full Exam - General 1994 Psychiatric mood and affect Overall: normal mood and affect 11/09/2015 None Full Exam - General 1994 Constitutional general appearance Overall: well developed 09/12/2015 None Full Exam - General 1994 Constitutional general appearance Overall: in no acute distress 09/12/2015 None Full Exam - General 1994 Constitutional general appearance Overall: well nourished 09/12/2015 None Full Exam - General 1994 Eyes conjunctiva /eyelids Overall: conjunctiva clear 09/12/2015 None Full Exam - General 1994 Eyes conjunctiva /eyelids Overall: cornea clear 09/12/2015 None Full Exam - General 1994 Eyes conjunctiva /eyelids Overall: eyelids normal 09/12/2015 None Full Exam - General 1994 Eyes pupils and irises Overall: pupils equal, round, reactive to light and accomodation 09/12/2015 None Full Exam - General 1994 Ears/Nose/Throat otoscopic exam Overall: external auditory canals clear 09/12/2015 None Full Exam - General 1994 Ears/Nose/Throat otoscopic exam Overall: tympanic membranes clear 09/12/2015 None Full Exam - General 1994 Ears/Nose/Throat oral cavity/pharynx/larynx Overall: oral mucosa clear 09/12/2015 None Full Exam - General 1994 Respiratory auscultation Overall: breath sounds clear bilaterally 09/12/2015 None Full Exam - General 1994 Respiratory respiratory effort/rhythm Overall: no retractions 09/12/2015 None Full Exam - General 1994 Respiratory respiratory effort/rhythm Overall: normal rate 09/12/2015 None Full Exam - General 1994 Cardiovascular extremities Overall: no clubbing 09/12/2015 None Full Exam - General 1994 Cardiovascular auscultation of heart Overall: regular rate 09/12/2015 None Full Exam - General 1994 Cardiovascular auscultation of heart Overall: normal heart sounds 09/12/2015 None Full Exam - General 1994 Cardiovascular auscultation of heart Overall: no murmurs 09/12/2015 None Full Exam - General 1994 Musculoskeletal gait and station Overall: normal gait 09/12/2015 None Full Exam - General 1994 Musculoskeletal gait and station Overall: normal station 09/12/2015 None Full Exam - General 1994 Integument inspection of skin Overall: no rash, lesions 09/12/2015 None Full Exam - General 1994 Neurologic cranial nerves Overall: crainial nerves 2 - 12 grossly intact 09/12/2015 None Full Exam - General 1994 Psychiatric orientation/consciousness Overall: oriented to person, place and time 09/12/2015 None Full Exam - General 1994 Constitutional general appearance Overall: well developed 08/28/2015 None Full Exam - General 1994 Constitutional general appearance Overall: in no acute distress 08/28/2015 None Full Exam - General 1994 Constitutional general appearance Overall: well nourished 08/28/2015 None Full Exam - General 1994 Eyes conjunctiva /eyelids Overall: conjunctiva clear 08/28/2015 None Full Exam - General 1994 Eyes conjunctiva /eyelids Overall: cornea clear 08/28/2015 None Full Exam - General 1994 Eyes conjunctiva /eyelids Overall: eyelids normal 08/28/2015 None Full Exam - General 1994 Eyes pupils and irises Overall: pupils equal, round, reactive to light and accomodation 08/28/2015 None Full Exam - General 1994 Ears/Nose/Throat oral cavity/pharynx/larynx Overall: oral mucosa clear 08/28/2015 None Full Exam - General 1994 Ears/Nose/Throat oral cavity/pharynx/larynx Overall: oropharyngeal mucosa clear 08/28/2015 None Full Exam - General 1994 Respiratory auscultation Overall: breath sounds clear bilaterally 08/28/2015 None Full Exam - General 1994 Respiratory respiratory effort/rhythm Overall: no retractions 08/28/2015 None Full Exam - General 1994 Respiratory respiratory effort/rhythm Overall: normal rate 08/28/2015 None Full Exam - General 1994 Cardiovascular extremities Overall: no clubbing 08/28/2015 None Full Exam - General 1994 Cardiovascular auscultation of heart Overall: regular rate 08/28/2015 None Full Exam - General 1994 Cardiovascular auscultation of heart Overall: normal heart sounds 08/28/2015 None Full Exam - General 1994 Musculoskeletal gait and station Overall: normal gait 08/28/2015 None Full Exam - General 1994 Musculoskeletal gait and station Overall: normal station 08/28/2015 None Full Exam - General 1994 Neurologic cranial nerves Overall: crainial nerves 2 - 12 grossly intact 08/28/2015 None Full Exam - General 1994 Psychiatric orientation/consciousness Overall: oriented to person, place and time 08/28/2015 None Full Exam - General 1994 Psychiatric mood and affect Overall: normal mood and affect 08/28/2015 None Full Exam - General 1994 Ears/Nose/Throat otoscopic exam External auditory canal: complete cerumen impaction 08/28/2015 None Full Exam - General 1994 Ears/Nose/Throat otoscopic exam Overall: tympanic membranes clear 08/28/2015 after removal of cerumen Full Exam - General 1994 Constitutional general appearance Overall: well developed 08/11/2015 None Full Exam - General 1994 Constitutional general appearance Overall: in no acute distress 08/11/2015 None Full Exam - General 1994 Constitutional general appearance Overall: well nourished 08/11/2015 None Full Exam - General 1994 Eyes conjunctiva /eyelids Overall: conjunctiva clear 08/11/2015 None Full Exam - General 1994 Eyes conjunctiva /eyelids Overall: cornea clear 08/11/2015 None Full Exam - General 1994 Eyes conjunctiva /eyelids Overall: eyelids normal 08/11/2015 None Full Exam - General 1994 Eyes pupils and irises Overall: pupils equal, round, reactive to light and accomodation 08/11/2015 None Full Exam - General 1994 Ears/Nose/Throat oral cavity/pharynx/larynx Overall: oral mucosa clear 08/11/2015 None Full Exam - General 1994 Respiratory auscultation Overall: breath sounds clear bilaterally 08/11/2015 None Full Exam - General 1994 Respiratory respiratory effort/rhythm Overall: no retractions 08/11/2015 None Full Exam - General 1994 Respiratory respiratory effort/rhythm Overall: normal rate 08/11/2015 None Full Exam - General 1994 Cardiovascular extremities Overall: no clubbing 08/11/2015 None Full Exam - General 1994 Cardiovascular auscultation of heart Overall: regular rate 08/11/2015 None Full Exam - General 1994 Cardiovascular auscultation of heart Overall: normal heart sounds 08/11/2015 None Full Exam - General 1994 Musculoskeletal gait and station Overall: normal gait 08/11/2015 None Full Exam - General 1994 Musculoskeletal gait and station Overall: normal station 08/11/2015 None Full Exam - General 1994 Neurologic cranial nerves Overall: crainial nerves 2 - 12 grossly intact 08/11/2015 None Full Exam - General 1994 Psychiatric orientation/consciousness Overall: oriented to person, place and time 08/11/2015 None Full Exam - General 1994 Ears/Nose/Throat otoscopic exam External auditory canal: partial cerumen occlusion 08/11/2015 None Full Exam - General 1994 Ears/Nose/Throat otoscopic exam External auditory canal: minimal cerumen 08/11/2015 None Full Exam - General 1994 Ears/Nose/Throat oral cavity/pharynx/larynx Overall: oropharyngeal mucosa clear 08/11/2015 None Full Exam - General 1994 Psychiatric mood and affect Overall: normal mood and affect 08/11/2015 None Full Exam - General 1994 Constitutional general appearance Overall: well developed 07/31/2015 None Full Exam - General 1994 Constitutional general appearance Overall: in no acute distress 07/31/2015 None Full Exam - General 1994 Constitutional general appearance Overall: well nourished 07/31/2015 None Full Exam - General 1994 Eyes conjunctiva /eyelids Overall: conjunctiva clear 07/31/2015 None Full Exam - General 1994 Eyes conjunctiva /eyelids Overall: cornea clear 07/31/2015 None Full Exam - General 1994 Eyes conjunctiva /eyelids Overall: eyelids normal 07/31/2015 None Full Exam - General 1994 Eyes pupils and irises Overall: pupils equal, round, reactive to light and accomodation 07/31/2015 None Full Exam - General 1994 Ears/Nose/Throat oral cavity/pharynx/larynx Overall: oral mucosa clear 07/31/2015 None Full Exam - General 1994 Ears/Nose/Throat oral cavity/pharynx/larynx Posterior Pharynx: clear post nasal drainage 07/31/2015 None Full Exam - General 1994 Respiratory auscultation Overall: breath sounds clear bilaterally 07/31/2015 None Full Exam - General 1994 Respiratory respiratory effort/rhythm Overall: no retractions 07/31/2015 None Full Exam - General 1994 Respiratory respiratory effort/rhythm Overall: normal rate 07/31/2015 None Full Exam - General 1994 Cardiovascular extremities Overall: no clubbing 07/31/2015 None Full Exam - General 1994 Cardiovascular auscultation of heart Overall: regular rate 07/31/2015 None Full Exam - General 1994 Cardiovascular auscultation of heart Overall: normal heart sounds 07/31/2015 None Full Exam - General 1994 Musculoskeletal gait and station Overall: normal gait 07/31/2015 None Full Exam - General 1994 Musculoskeletal gait and station Overall: normal station 07/31/2015 None Full Exam - General 1994 Neurologic cranial nerves Overall: crainial nerves 2 - 12 grossly intact 07/31/2015 None Full Exam - General 1994 Psychiatric orientation/consciousness Overall: oriented to person, place and time 07/31/2015 None Full Exam - General 1994 Ears/Nose/Throat otoscopic exam External auditory canal: tender 07/31/2015 None Full Exam - General 1994 Ears/Nose/Throat otoscopic exam External auditory canal: erythematous 07/31/2015 None Full Exam - General 1994 Ears/Nose/Throat otoscopic exam External auditory canal: edematous 07/31/2015 None Full Exam - General 1994 Ears/Nose/Throat otoscopic exam Tympanic membrane: erythematous 07/31/2015 None Full Exam - General 1994 Ears/Nose/Throat otoscopic exam Tympanic membrane: bulging 07/31/2015 None Full Exam - General 1994 Lymphatic neck nodes Overall: shotty lymphadenopathy 07/31/2015 None Full Exam - General 1994 Constitutional general appearance Overall: well developed 06/12/2015 None Full Exam - General 1994 Constitutional general appearance Overall: in no acute distress 06/12/2015 None Full Exam - General 1994 Constitutional general appearance Overall: well nourished 06/12/2015 None Full Exam - General 1994 Eyes conjunctiva /eyelids Overall: conjunctiva clear 06/12/2015 None Full Exam - General 1994 Eyes conjunctiva /eyelids Overall: cornea clear 06/12/2015 None Full Exam - General 1994 Eyes conjunctiva /eyelids Overall: eyelids normal 06/12/2015 None Full Exam - General 1994 Eyes pupils and irises Overall: pupils equal, round, reactive to light and accomodation 06/12/2015 None Full Exam - General 1994 Ears/Nose/Throat otoscopic exam Overall: external auditory canals clear 06/12/2015 None Full Exam - General 1994 Ears/Nose/Throat otoscopic exam Overall: tympanic membranes clear 06/12/2015 None Full Exam - General 1994 Ears/Nose/Throat oral cavity/pharynx/larynx Overall: oral mucosa clear 06/12/2015 None Full Exam - General 1994 Respiratory auscultation Overall: breath sounds clear bilaterally 06/12/2015 None Full Exam - General 1994 Respiratory respiratory effort/rhythm Overall: no retractions 06/12/2015 None Full Exam - General 1994 Respiratory respiratory effort/rhythm Overall: normal rate 06/12/2015 None Full Exam - General 1994 Cardiovascular extremities Overall: no clubbing 06/12/2015 None Full Exam - General 1994 Cardiovascular auscultation of heart Overall: regular rate 06/12/2015 None Full Exam - General 1994 Cardiovascular auscultation of heart Overall: normal heart sounds 06/12/2015 None Full Exam - General 1994 Cardiovascular auscultation of heart Overall: no murmurs 06/12/2015 None Full Exam - General 1994 Musculoskeletal gait and station Overall: normal gait 06/12/2015 None Full Exam - General 1994 Musculoskeletal gait and station Overall: normal station 06/12/2015 None Full Exam - General 1994 Integument inspection of skin Overall: no rash, lesions 06/12/2015 None Full Exam - General 1994 Neurologic cranial nerves Overall: crainial nerves 2 - 12 grossly intact 06/12/2015 None Full Exam - General 1994 Psychiatric orientation/consciousness Overall: oriented to person, place and time 06/12/2015 None Full Exam - General 1994 Ears/Nose/Throat oral cavity/pharynx/larynx Posterior Pharynx: clear post nasal drainage 06/12/2015 None Full Exam - General 1994 Ears/Nose/Throat oral cavity/pharynx/larynx Oropharynx: erythema 06/12/2015 None Full Exam - General 1994 Constitutional general appearance Overall: well developed 01/20/2015 None Full Exam - General 1994 Constitutional general appearance Overall: in no acute distress 01/20/2015 None Full Exam - General 1994 Constitutional general appearance Overall: well nourished 01/20/2015 None Full Exam - General 1994 Eyes conjunctiva /eyelids Overall: conjunctiva clear 01/20/2015 None Full Exam - General 1994 Eyes conjunctiva /eyelids Overall: cornea clear 01/20/2015 None Full Exam - General 1994 Eyes conjunctiva /eyelids Overall: eyelids normal 01/20/2015 None Full Exam - General 1994 Eyes pupils and irises Overall: pupils equal, round, reactive to light and accomodation 01/20/2015 None Full Exam - General 1994 Ears/Nose/Throat otoscopic exam Overall: external auditory canals clear 01/20/2015 None Full Exam - General 1994 Ears/Nose/Throat otoscopic exam Overall: tympanic membranes clear 01/20/2015 None Full Exam - General 1994 Ears/Nose/Throat oral cavity/pharynx/larynx Overall: oral mucosa clear 01/20/2015 None Full Exam - General 1994 Ears/Nose/Throat oral cavity/pharynx/larynx Overall: oropharyngeal mucosa clear 01/20/2015 None Full Exam - General 1994 Ears/Nose/Throat oral cavity/pharynx/larynx Overall: no masses 01/20/2015 None Full Exam - General 1994 Respiratory auscultation Overall: breath sounds clear bilaterally 01/20/2015 None Full Exam - General 1994 Respiratory respiratory effort/rhythm Overall: no retractions 01/20/2015 None Full Exam - General 1994 Respiratory respiratory effort/rhythm Overall: normal rate 01/20/2015 None Full Exam - General 1994 Cardiovascular extremities Overall: no clubbing 01/20/2015 None Full Exam - General 1994 Cardiovascular auscultation of heart Overall: regular rate 01/20/2015 None Full Exam - General 1994 Cardiovascular auscultation of heart Overall: normal heart sounds 01/20/2015 None Full Exam - General 1994 Cardiovascular auscultation of heart Overall: no murmurs 01/20/2015 None Full Exam - General 1994 Abdomen abdominal exam Overall: no tenderness 01/20/2015 None Full Exam - General 1994 Abdomen abdominal exam Overall: normal bowel sounds 01/20/2015 None Full Exam - General 1994 Lymphatic neck nodes Overall: anterior cervical chain benign 01/20/2015 None Full Exam - General 1994 Lymphatic neck nodes Overall: posterior cervical chain benign 01/20/2015 None Full Exam - General 1994 Musculoskeletal gait and station Overall: normal gait 01/20/2015 None Full Exam - General 1994 Musculoskeletal gait and station Overall: normal station 01/20/2015 None Full Exam - General 1994 Integument inspection of skin Overall: no rash, lesions 01/20/2015 None Full Exam - General 1994 Neurologic cranial nerves Overall: crainial nerves 2 - 12 grossly intact 01/20/2015 None Full Exam - General 1994 Psychiatric orientation/consciousness Overall: oriented to person, place and time 01/20/2015 None Full Exam - General 1994 Constitutional general appearance Overall: well developed 10/07/2014 None Full Exam - General 1994 Constitutional general appearance Overall: in no acute distress 10/07/2014 None Full Exam - General 1994 Constitutional general appearance Overall: well nourished 10/07/2014 None Full Exam - General 1994 Psychiatric orientation/consciousness Overall: oriented to person, place and time 10/07/2014 None Full Exam - General 1994 Neurologic cranial nerves Overall: crainial nerves 2 - 12 grossly intact 10/07/2014 None Full Exam - General 1994 Integument inspection of skin Overall: no rash, lesions 10/07/2014 None Full Exam - General 1994 Musculoskeletal gait and station Overall: normal station 10/07/2014 None Full Exam - General 1994 Musculoskeletal gait and station Overall: normal gait 10/07/2014 None Full Exam - General 1994 Lymphatic neck nodes Overall: anterior cervical chain benign 10/07/2014 None Full Exam - General 1994 Lymphatic neck nodes Overall: posterior cervical chain benign 10/07/2014 None Full Exam - General 1994 Abdomen abdominal exam Overall: no tenderness 10/07/2014 None Full Exam - General 1994 Abdomen abdominal exam Overall: normal bowel sounds 10/07/2014 None Full Exam - General 1994 Cardiovascular auscultation of heart Overall: regular rate 10/07/2014 None Full Exam - General 1994 Cardiovascular auscultation of heart Overall: normal heart sounds 10/07/2014 None Full Exam - General 1994 Cardiovascular auscultation of heart Overall: no murmurs 10/07/2014 None Full Exam - General 1994 Cardiovascular extremities Overall: no clubbing 10/07/2014 None Full Exam - General 1994 Respiratory auscultation Overall: breath sounds clear bilaterally 10/07/2014 None Full Exam - General 1994 Respiratory respiratory effort/rhythm Overall: normal rate 10/07/2014 None Full Exam - General 1994 Respiratory respiratory effort/rhythm Overall: no retractions 10/07/2014 None Full Exam - General 1994 Ears/Nose/Throat otoscopic exam Overall: tympanic membranes clear 10/07/2014 None Full Exam - General 1994 Ears/Nose/Throat otoscopic exam Overall: external auditory canals clear 10/07/2014 None Full Exam - General 1994 Ears/Nose/Throat oral cavity/pharynx/larynx Overall: oropharyngeal mucosa clear 10/07/2014 None Full Exam - General 1994 Ears/Nose/Throat oral cavity/pharynx/larynx Overall: no masses 10/07/2014 None Full Exam - General 1994 Ears/Nose/Throat oral cavity/pharynx/larynx Overall: oral mucosa clear 10/07/2014 None Full Exam - General 1994 Eyes conjunctiva /eyelids Overall: conjunctiva clear 10/07/2014 None Full Exam - General 1994 Eyes conjunctiva /eyelids Overall: eyelids normal 10/07/2014 None Full Exam - General 1994 Eyes conjunctiva /eyelids Overall: cornea clear 10/07/2014 None Full Exam - General 1994 Eyes pupils and irises Overall: pupils equal, round, reactive to light and accomodation 10/07/2014 None Procedures Procedure Codes Date TRIAMCINOLONE ACET INJ NOS CPT-4: J3301 11/27/2017 ROCEPHIN, PER 250 MG CPT-4: J0696 11/27/2017 ROCEPHIN, PER 250 MG CPT-4: J0696 11/17/2017 ROCEPHIN, PER 250 MG CPT-4: J0696 09/22/2017 TRIAMCINOLONE ACET INJ NOS CPT-4: J3301 09/15/2017 THER/PROPH/DIAG INJ SC/IM CPT-4: 57848 04/23/2017 TRIAMCINOLONE ACET INJ NOS CPT-4: J3301 04/23/2017 ROCEPHIN, PER 250 MG CPT-4: J0696 04/23/2017 TRIAMCINOLONE ACET INJ NOS CPT-4: J3301 02/20/2017 TRIAMCINOLONE ACET INJ NOS CPT-4: J3301 01/28/2017 ROCEPHIN, PER 250 MG CPT-4: J0696 01/28/2017 TRIAMCINOLONE ACET INJ NOS CPT-4: J3301 12/13/2016 ROCEPHIN, PER 250 MG CPT-4: J0696 12/13/2016 THER/PROPH/DIAG INJ SC/IM CPT-4: 36536 09/17/2016 TRIAMCINOLONE ACET INJ NOS CPT-4: J3301 09/17/2016 PROMETHAZINE HCL INJECTION CPT-4: J2550 07/01/2016 TRIAMCINOLONE ACET INJ NOS CPT-4: J3301 03/22/2016 URINALYSIS NONAUTO W/O SCOPE CPT-4: 16502 12/11/2015 Vital Signs Date Vital 12/30/2017 Blood Pressure 1: 140/90 Code : 8480-6 Blood Pressure 1: 164/88 Code: 8480-6 BMI: 45.0 Code: 50592-5 Heart Rate 1: 88 bpm Height: 5'8" SpO2: 97% Weight: 296 lbs 11/27/2017 Blood Pressure 1: 128/72 Code : 8480-6 Heart Rate 1: 102 bpm Height: SpO2: 98% Weight: 11/19/2017 BMI: 44.2 Code: 11780-3 Height: 5'8" Weight: 291 lbs 11/17/2017 Blood Pressure 1: 126/72 Code : 8480-6 BMI: 44.2 Code : 42279-8 Heart Rate 1 : 98 bpm Height: 5'8" SpO2: 98% Weight: 291 lbs 11/04/2017 Blood Pressure 1: 134/80 Code : 8480-6 Heart Rate 1: 96 bpm Height: SpO2: 98% Weight: 09/22/2017 Blood Pressure 1: 124/70 Code : 8480-6 Heart Rate 1: 98 bpm SpO2: 98% Temperature: 37.2 (C) / 98.9 (F) 09/15/2017 Blood Pressure 1: 128/78 Code : 8480-6 BMI: 43.5 Code : 65789-3 Heart Rate 1 : 104 bpm Height: 5'8" SpO2: 98% Weight: 286 lbs 04/23/2017 Blood Pressure 1: 120/78 Code : 8480-6 BMI: 44.1 Code : 95281-1 Heart Rate 1 : 102 bpm Height: 5'8" SpO2: 98% Temperature: 37.3 (C) / 99.1 (F) Weight: 290 lbs 03/27/2017 Blood Pressure 1: 138/76 Code : 8480-6 Heart Rate 1: 84 bpm Height: SpO2: 96% Temperature: 37.3 (C) / 99.2 (F) Weight: 03/04/2017 Blood Pressure 1: 132/84 Code : 8480-6 BMI: 42.6 Code : 59406-9 Heart Rate 1 : 73 bpm Height: 5'8" SpO2: 98% Weight: 280 lbs 02/25/2017 Blood Pressure 1: 134/82 Code : 8480-6 Heart Rate 1: 81 bpm Height: SpO2: 97% Temperature: 38.1 (C) / 100.6 (F) Weight: 02/20/2017 Blood Pressure 1: 120/78 Code : 8480-6 Heart Rate 1: 87 bpm Height: SpO2: 98% Temperature: 37.6 (C) / 99.7 (F) Weight: 02/04/2017 Blood Pressure 1: 130/78 Code : 8480-6 BMI: 42.6 Code : 67762-3 Heart Rate 1 : 92 bpm Height: 5'8" SpO2: 99% Temperature: 37.4 (C) / 99.4 (F) Weight: 280 lbs 01/28/2017 Blood Pressure 1: 128/60 Code : 8480-6 BMI: 42.6 Code : 34755-0 Heart Rate 1 : 78 bpm Height: 5'8" SpO2: 97% Weight: 280 lbs 12/13/2016 Blood Pressure 1: 144/82 Code : 8480-6 BMI: 42.1 Code : 63260-3 Heart Rate 1 : 77 bpm Height: 5'8" SpO2: 98% Weight: 277 lbs 10/21/2016 Blood Pressure 1: 136/84 Code : 8480-6 Heart Rate 1: 63 bpm Height: 5'8" SpO2: 98% Temperature: 37.3 (C) / 99.1 (F) Weight: 09/30/2016 Blood Pressure 1: 128/74 Code : 8480-6 BMI: 41.1 Code : 61887-7 Heart Rate 1 : 65 bpm Height: 5'8" SpO2: 99% Weight: 270 lbs 09/17/2016 Blood Pressure 1: 162/72 Code : 8480-6 BMI: 41.1 Code : 10075-3 Heart Rate 1 : 86 bpm Height: 5'8" SpO2: 92% Weight: 270 lbs 07/15/2016 Blood Pressure 1: 122/64 Code : 8480-6 BMI: 39.5 Code : 38800-1 Heart Rate 1 : 89 bpm Height: 5'8" SpO2: 98% Temperature: 37.2 (C) / 99.0 (F) Weight: 260 lbs 07/04/2016 Blood Pressure 1: 136/82 Code : 8480-6 Heart Rate 1: 104 bpm Height: SpO2: 98% Weight: 07/01/2016 Blood Pressure 1: 138/72 Code : 8480-6 Heart Rate 1: 101 bpm SpO2: 98% 06/05/2016 Blood Pressure 1: 132/82 Code : 8480-6 BMI: 38.6 Code : 14961-5 Heart Rate 1 : 98 bpm Height: 5'8" SpO2: 97% Temperature: 36.8 (C) / 98.2 (F) Weight: 254 lbs 04/02/2016 Blood Pressure 1: 148/92 Code : 8480-6 BMI: 40.3 Code : 11042-9 Heart Rate 1 : 112 bpm Height: 5'8" SpO2: 98% Weight: 265 lbs 03/22/2016 Blood Pressure 1: 134/72 Code : 8480-6 BMI: 40.3 Code : 60708-2 Heart Rate 1 : 120 bpm Height: 5'8" SpO2: 98% Temperature: 38.7 (C) / 101.6 (F) Weight: 265 lbs 03/05/2016 Blood Pressure 1: 144/66 Code : 8480-6 BMI: 40.4 Code : 31392-1 Heart Rate 1 : 82 bpm Height: 5'8" SpO2: 92% Weight: 266 lbs 01/29/2016 Blood Pressure 1: 128/86 Code : 8480-6 BMI: 42.4 Code : 38188-1 Heart Rate 1 : 95 bpm Height: 5'8" SpO2: 96% Temperature: 37.5 (C) / 99.5 (F) Weight: 279 lbs 12/11/2015 Blood Pressure 1: 130/80 Code : 8480-6 BMI: 41.7 Code : 66917-6 Heart Rate 1 : 79 bpm Height: 5'8" SpO2: 96% Weight: 274 lbs 11/09/2015 Blood Pressure 1: 136/80 Code : 8480-6 BMI: 38.8 Code : 70428-2 Heart Rate 1 : 80 bpm Height: 5'8" SpO2: 99% Weight: 255 lbs 09/12/2015 Blood Pressure 1: 158/88 Code : 8480-6 BMI: 38.6 Code : 13375-2 Heart Rate 1 : 83 bpm Height: 5'8" SpO2: 98% Weight: 254 lbs 08/28/2015 Blood Pressure 1: 138/84 Code : 8480-6 BMI: 36.8 Code : 96523-2 Heart Rate 1 : 128 bpm Height: 5'8" SpO2: 99% Weight: 242 lbs 08/11/2015 Blood Pressure 1: 140/96 Code : 8480-6 BMI: 37.7 Code : 48161-8 Heart Rate 1 : 93 bpm Height: 5'8" SpO2: 98% Weight: 248 lbs 07/31/2015 Blood Pressure 1: 160/80 Code : 8480-6 BMI: 37.7 Code : 40943-7 Heart Rate 1 : 122 bpm Height: 5'8" SpO2: 98% Temperature: 37.2 (C) / 98.9 (F) Weight: 248 lbs 06/12/2015 Blood Pressure 1: 134/82 Code : 8480-6 BMI: 36.2 Code : 85324-9 Heart Rate 1 : 102 bpm Height: 5'8" SpO2: 99% Weight: 238 lbs 01/20/2015 Blood Pressure 1: 132/82 Code : 8480-6 BMI: 35.6 Code : 94752-0 Heart Rate 1 : 84 bpm Height: 5'8" SpO2: 96% Weight: 234 lbs 10/07/2014 Blood Pressure 1: 132/82 Code : 8480-6 BMI: 34.5 Code : 63361-5 Heart Rate 1 : 95 bpm Height: 5'8" SpO2: 99% Weight: 227 lbs Functional Status No Functional Status data History of Present Illness Symptom Name Status Result Effective Date Notes knee pain Location on the left 12/30/2017 None knee pain Quality catching 12/30/2017 None knee pain Quality giving way 12/30/2017 None knee pain Quality popping 12/30/2017 None knee pain Quality sharp pain 12/30/2017 None knee pain Quality constant 12/30/2017 None knee pain Onset and Resolution sudden in onset 12/30/2017 None knee pain Onset of Symptom 2 weeks ago 12/30/2017 None knee pain Frequency of Episodes daily 12/30/2017 None cough Location in the lung 11/27/2017 None cough Quality acute None cough Quality hacking 11/27/2017 None cough Quality productive 11/27/2017 None cough Quality worsening 11/27/2017 None cough Onset and Resolution sudden in onset 11/27/2017 None cough Onset of Symptom 1 weeks ago 11/27/2017 None cough Limitation on Activities moderately limits activities 11/27/2017 None cough Significant Medical Conditions immunosuppression 11/27/2017 None cough Significant Medications steroids 11/27/2017 None cough Alleviating Factors OTC medications 11/27/2017 None cough Exacerbating Factors exercise 11/27/2017 None cough Pertinent Findings chills 11/27/2017 None cough Pertinent Findings Denies drooling 11/27/2017 None cough Pertinent Findings fever 11/27/2017 None cough Pertinent Findings nasal congestion 11/27/2017 None cough Pertinent Findings Denies stridor 11/27/2017 None sinus congestion Location maxillary sinuses 11/27/2017 None sinus congestion Quality acute 11/27/2017 None sinus congestion Onset and Resolution sudden in onset 11/27/2017 None sinus congestion Onset of Symptom 1 weeks ago 11/27/2017 None sinus congestion Severity moderate 11/27/2017 None sinus congestion Pertinent Findings cough 11/27/2017 None sore throat Location diffusely 11/27/2017 None sore throat Quality acute 11/27/2017 None sore throat Onset and Resolution sudden in onset 11/27/2017 None sore throat Onset of Symptom 1 weeks ago 11/27/2017 None sore throat Limitation on Activities does not limit oral intake 11/27/2017 None sore throat Significant Medical Conditions allergic rhinitis 11/27/2017 None sore throat Pertinent Findings cough 11/27/2017 None skin lesion Onset and Resolution sudden in onset 11/17/2017 None skin lesion Onset of Symptom 3 days ago 11/17/2017 None skin lesion Severity moderate 11/17/2017 None skin lesion Pertinent Findings Denies fever 11/17/2017 None skin lesion Pertinent Findings Denies ecchymotic 11/17/2017 None skin lesion Location right lower leg 11/17/2017 None skin lesion Quality acute 11/17/2017 None skin lesion Quality erythematous 11/17/2017 None eye discharge Location in the left eye 11/04/2017 None eye discharge Quality acute 11/04/2017 None eye discharge Onset and Resolution sudden in onset 11/04/2017 None eye discharge Onset of Symptom 1 days ago 11/04/2017 None eye discharge Severity moderate 11/04/2017 None eye discharge Pertinent Findings Denies fever 11/04/2017 None eye discharge Pertinent Findings Denies eye pressure 11/04/2017 None eye discharge Pertinent Findings Denies eye swelling 11/04/2017 None eye discharge Pertinent Findings eye tearing 11/04/2017 None fever Quality acute None fever Onset and Resolution sudden in onset 09/22/2017 None fever Pertinent Findings nausea 09/22/2017 None fever Pertinent Findings chills 09/22/2017 None fever Pertinent Findings Denies dyspnea 09/22/2017 None malaise Quality acute 09/15/2017 None malaise Onset and Resolution ongoing 09/15/2017 None malaise Limitation on Activities moderately limits activities 09/15/2017 None malaise Pertinent Findings Denies cough 09/15/2017 None malaise Pertinent Findings lightheadedness 09/15/2017 None sinus congestion Location frontal sinuses 04/23/2017 None sinus congestion Quality fullness 04/23/2017 None sinus congestion Quality pressure 04/23/2017 None sinus congestion Onset and Resolution sudden in onset 04/23/2017 None sinus congestion Onset of Symptom 5 days ago 04/23/2017 None sinus congestion Frequency of Episodes daily 04/23/2017 None chest congestion Quality constant 04/23/2017 None chest congestion Quality thick secretions 04/23/2017 None chest congestion Onset and Resolution sudden in onset 04/23/2017 None chest congestion Onset of Symptom 5 days ago 04/23/2017 None abdominal pain Location in the epigastric area 03/27/2017 None abdominal pain Location in the LUQ 03/27/2017 None abdominal pain Quality acute 03/27/2017 None abdominal pain Quality intermittent 03/27/2017 None abdominal pain Limitation on Activities does not limit activities 03/27/2017 None abdominal pain Pertinent Findings chills 03/27/2017 None abdominal pain Pertinent Findings cough 03/27/2017 None abdominal pain Pertinent Findings dyspnea 03/27/2017 None malaise Quality intermittent 03/27/2017 None malaise Quality worsening 03/27/2017 None malaise Onset and Resolution ongoing 03/27/2017 None malaise Pertinent Findings fever 03/27/2017 low grade malaise Quality acute 03/04/2017 None malaise Onset and Resolution ongoing 03/04/2017 None malaise Limitation on Activities moderately limits activities 03/04/2017 None malaise Pertinent Findings fever 03/04/2017 None malaise Quality acute 02/25/2017 None malaise Onset and Resolution ongoing 02/25/2017 None malaise Limitation on Activities moderately limits activities 02/25/2017 None malaise Pertinent Findings fever 02/25/2017 None sinus congestion Location frontal sinuses 02/20/2017 None sinus congestion Quality constant 02/20/2017 None sinus congestion Quality fullness 02/20/2017 None sinus congestion Quality pain 02/20/2017 None sinus congestion Quality pressure 02/20/2017 None sinus congestion Onset and Resolution sudden in onset 02/20/2017 None sinus congestion Onset of Symptom 1 weeks ago 02/20/2017 None sinus congestion Frequency of Episodes daily 02/20/2017 None sinus congestion Pertinent Findings fever 02/20/2017 None sinus congestion Pertinent Findings hoarseness 02/20/2017 None sinus congestion Pertinent Findings decreased energy level 02/20/2017 None sinus congestion Pertinent Findings cough 02/20/2017 None sore throat Location diffusely 02/20/2017 None sore throat Quality aching 02/20/2017 None sore throat Quality constant 02/20/2017 None sore throat Quality scratchy 02/20/2017 None sore throat Onset and Resolution sudden in onset 02/20/2017 None sore throat Onset of Symptom 1 weeks ago 02/20/2017 None sore throat Frequency of Episodes daily 02/20/2017 None pain Onset and Resolution sudden in onset 02/04/2017 None pain Pertinent Findings Denies dizziness 02/04/2017 None pain Pertinent Findings pain 02/04/2017 None pain Pertinent Findings Denies worsened by sun 02/04/2017 None pain Location-Major on the upper body 01/28/2017 None pain Location-Major on the lower body 01/28/2017 None pain Onset and Resolution sudden in onset 01/28/2017 None pain Onset of Symptom 5 days ago 01/28/2017 None rash Location-Major on the head 12/13/2016 None rash Color red 2016 None rash Onset and Resolution sudden in onset 12/13/2016 None rash Onset of Symptom 2 weeks ago 12/13/2016 None sinus congestion Location maxillary sinuses 10/21/2016 None sinus congestion Quality acute 10/21/2016 None sinus congestion Quality fullness 10/21/2016 None sinus congestion Quality pressure 10/21/2016 None sinus congestion Pertinent Findings cough 10/21/2016 None sinus congestion Pertinent Findings Denies fever 10/21/2016 None sinus congestion Location on both sides 10/21/2016 None sinus congestion Onset and Resolution sudden in onset 10/21/2016 None sinus congestion Onset of Symptom 6 days ago 10/21/2016 None sinus congestion Severity moderate 10/21/2016 None sinus congestion Frequency of Episodes increasing 10/21/2016 None sinus congestion Significant Medical Conditions allergic rhinitis 10/21/2016 None sinus congestion Triggers no known associated factors 10/21/2016 None anxiety Quality constant 09/30/2016 None anxiety Quality panic attacks 09/30/2016 None anxiety Quality social phobia 09/30/2016 None anxiety Onset and Resolution sudden in onset 09/30/2016 None anxiety Onset of Symptom 1 months ago 09/30/2016 None anxiety Frequency of Episodes daily 09/30/2016 None anxiety Exacerbating Factors activity 09/30/2016 None anxiety Pertinent Findings palpitations 09/30/2016 None anxiety Pertinent Findings shyness 09/30/2016 None anxiety Pertinent Findings upset stomach 09/30/2016 None rash Location-Major on the neck 09/17/2016 None rash Location-Major on the head 09/17/2016 None rash Color pink 2016 None rash Onset and Resolution sudden in onset 09/17/2016 None rash Onset of Symptom 1 week ago 09/17/2016 None rash Triggers no known triggers 09/17/2016 None headache Quality intermittent 09/17/2016 None headache Quality sharp 09/17/2016 None headache Onset and Resolution sudden in onset 09/17/2016 None headache Onset of Symptom 1 weeks ago 09/17/2016 None headache Frequency of Episodes daily 09/17/2016 None fatigue Limitation on Activities moderately limits activities 09/17/2016 None fatigue Onset of Symptom 1 weeks ago 09/17/2016 None cough Location in the throat 07/15/2016 None cough Quality constant 07/15/2016 None cough Onset and Resolution sudden in onset 07/15/2016 None cough Onset of Symptom 2 days ago 07/15/2016 None cough Frequency of Episodes daily 07/15/2016 None cough Pertinent Findings fever 07/15/2016 None cough Pertinent Findings hoarseness 07/15/2016 None cough Pertinent Findings nasal congestion 07/15/2016 None sinus congestion Location on both sides 07/15/2016 None sinus congestion Quality fullness 07/15/2016 None sinus congestion Quality pressure 07/15/2016 None sinus congestion Onset and Resolution sudden in onset 07/15/2016 None sore throat Location on both sides 07/15/2016 None sore throat Quality constant 07/15/2016 None sore throat Onset and Resolution sudden in onset 07/15/2016 None sore throat Quality scratchy 07/15/2016 None sore throat Onset of Symptom 2 days ago 07/15/2016 None sinus congestion Location maxillary sinuses 07/04/2016 None sinus congestion Quality acute 07/04/2016 None sinus congestion Quality fullness 07/04/2016 None sinus congestion Quality pressure 07/04/2016 None sinus congestion Pertinent Findings cough 07/04/2016 None sinus congestion Pertinent Findings Denies fever 07/04/2016 None headache Location diffusely 07/01/2016 None headache Quality aching 07/01/2016 None headache Quality pressure 07/01/2016 None headache Onset and Resolution sudden in onset 07/01/2016 None headache Onset of Symptom 1 days ago 07/01/2016 None headache Frequency of Episodes daily 07/01/2016 None sinus congestion Location frontal sinuses 06/05/2016 None sinus congestion Location maxillary sinuses 06/05/2016 None sinus congestion Quality acute 06/05/2016 None sinus congestion Quality fullness 06/05/2016 None sinus congestion Quality pressure 06/05/2016 None sinus congestion Pertinent Findings cough 06/05/2016 None sinus congestion Pertinent Findings Denies fever 06/05/2016 None sore throat Location on both sides 06/05/2016 None sore throat Quality acute 06/05/2016 None sore throat Onset of Symptom 3 days ago 06/05/2016 None sore throat Pertinent Findings Denies fever 06/05/2016 None sore throat Pertinent Findings ill contacts 06/05/2016 None earache Location left ear 04/02/2016 None earache Onset and Resolution sudden in onset 04/02/2016 None earache Onset of Symptom 5 hours ago 04/02/2016 None sore throat Location diffusely 03/22/2016 None sore throat Quality aching 03/22/2016 None sore throat Quality constant 03/22/2016 None sore throat Quality dull 03/22/2016 None sore throat Quality scratchy 03/22/2016 None sore throat Onset and Resolution sudden in onset 03/22/2016 None cough Location in the throat 03/22/2016 None cough Quality dry 03/2016 None cough Quality constant 03/22/2016 None cough Onset and Resolution sudden in onset 03/22/2016 None cough Onset of Symptom 3 days ago 03/22/2016 None fever Quality constant 03/22/2016 None fever Onset and Resolution sudden in onset 03/22/2016 None fever Onset of Symptom 3 days ago 03/22/2016 None fever Temperature 101 degrees 03/22/2016 None dysphagia Location in the esophageal area 03/05/2016 None dysphagia Quality difficulty with solids 03/05/2016 None dysphagia Pertinent Findings Denies dyspnea 03/05/2016 None sinus congestion Onset and Resolution sudden in onset 01/29/2016 None sinus congestion Onset of Symptom 1 days ago 01/29/2016 None sinus congestion Pertinent Findings Denies cough 01/29/2016 None sinus congestion Pertinent Findings decreased energy level 01/29/2016 None sinus congestion Pertinent Findings Denies fever 01/29/2016 None sinus congestion Frequency of Episodes daily 01/29/2016 None sinus congestion Severity moderate 01/29/2016 None sinus congestion Significant Medical Conditions allergic rhinitis 01/29/2016 None sinus congestion Triggers allergens 01/29/2016 None sinus congestion Location on both sides 01/29/2016 None sinus congestion Quality acute 01/29/2016 None back pain Location diffusely 12/11/2015 None back pain Quality intermittent 12/11/2015 None back pain Onset and Resolution ongoing 12/11/2015 None back pain Limitation on Activities does not limit activities 12/11/2015 None back pain Pertinent Findings Denies extremity numbness 12/11/2015 None back pain Pertinent Findings Denies extremity weakness 12/11/2015 None back pain Onset of Symptom 2 weeks ago 12/11/2015 November 18 to ER-UTI-took augmentin 875mg-got a letter stating culture was resistent back pain Frequency of Episodes unchanged 12/11/2015 None sinus congestion Location on both sides 11/09/2015 None sinus congestion Quality constant 11/09/2015 None sinus congestion Quality pain 11/09/2015 None sinus congestion Quality pressure 11/09/2015 None sinus congestion Onset and Resolution sudden in onset 11/09/2015 None sinus congestion Onset of Symptom 1 weeks ago 11/09/2015 None sinus congestion Frequency of Episodes daily 11/09/2015 None headache Location diffusely 11/09/2015 None headache Quality constant 11/09/2015 None headache Quality pressure 11/09/2015 None headache Onset and Resolution sudden in onset 11/09/2015 None headache Onset of Symptom 1 weeks ago 11/09/2015 None headache Frequency of Episodes daily 11/09/2015 None headache Pertinent Findings nausea 11/09/2015 None headache Pertinent Findings lightheadedness 11/09/2015 None headache Pertinent Findings dizziness 11/09/2015 None edema Onset and Resolution sudden in onset 09/12/2015 None edema Onset of Symptom 6 days ago 09/12/2015 None edema Location on both legs 09/12/2015 None edema Quality constant 09/12/2015 None edema Quality painful 09/12/2015 None fatigue Limitation on Activities moderately limits activities 09/12/2015 None fatigue Onset of Symptom 6 days ago 09/12/2015 None fatigue Frequency of Episodes daily 09/12/2015 None fatigue Onset and Resolution sudden in onset 09/12/2015 None earache Location right ear 08/28/2015 None earache Onset and Resolution ongoing 08/28/2015 None earache Frequency of Episodes daily 08/28/2015 None earache Frequency of Episodes daily 08/11/2015 None earache Onset and Resolution ongoing 08/11/2015 None earache Location right ear 08/11/2015 None hemorrhoids Quality acute 08/11/2015 None hemorrhoids Quality bleeding 08/11/2015 None hemorrhoids Onset and Resolution sudden in onset 08/11/2015 None hemorrhoids Exacerbating Factors medication 08/11/2015 None hemorrhoids Exacerbating Factors certain foods 08/11/2015 None hemorrhoids Pertinent Findings Denies fever 08/11/2015 None sinus congestion Location on both sides 07/31/2015 None sinus congestion Quality fullness 07/31/2015 None sinus congestion Quality pressure 07/31/2015 None sinus congestion Onset and Resolution sudden in onset 07/31/2015 None sinus congestion Frequency of Episodes daily 07/31/2015 None sinus congestion Pertinent Findings nasal crusting 07/31/2015 None sore throat Location on both sides 07/31/2015 None sore throat Quality constant 07/31/2015 None sore throat Quality dull 07/31/2015 None sore throat Quality sharp 07/31/2015 None sore throat Quality burning 07/31/2015 None sore throat Onset and Resolution sudden in onset 07/31/2015 None sore throat Frequency of Episodes daily 07/31/2015 None sore throat Pertinent Findings nasal congestion 07/31/2015 None earache Location both ears 07/31/2015 None earache Onset and Resolution sudden in onset 07/31/2015 None earache Frequency of Episodes daily 07/31/2015 None lower leg pain Location on the left 06/12/2015 None lower leg pain Location on the right 06/12/2015 None lower leg pain Quality dull pain 06/12/2015 None lower leg pain Quality cramping 06/12/2015 None lower leg pain Quality numbness 06/12/2015 None lower leg pain Onset and Resolution sudden in onset 06/12/2015 None lower leg pain Onset of Symptom 5 days ago 06/12/2015 None lower leg pain Frequency of Episodes daily 06/12/2015 None sinus congestion Location on both sides 06/12/2015 None sinus congestion Quality fullness 06/12/2015 None sinus congestion Onset and Resolution sudden in onset 06/12/2015 None sinus congestion Onset of Symptom 2 days ago 06/12/2015 None sinus congestion Frequency of Episodes daily 06/12/2015 None sore throat Location on both sides 06/12/2015 None sore throat Quality dull 06/12/2015 None sore throat Quality scratchy 06/12/2015 None sore throat Onset and Resolution sudden in onset 06/12/2015 None sore throat Onset of Symptom 2 days ago 06/12/2015 None sore throat Frequency of Episodes daily 06/12/2015 None headache Location diffusely 06/12/2015 None headache Quality dull 06/12/2015 None headache Quality constant 06/12/2015 None headache Onset and Resolution sudden in onset 06/12/2015 None headache Onset of Symptom 2 days ago 06/12/2015 None headache Frequency of Episodes daily 06/12/2015 None fatigue Limitation on Activities moderately limits activities 01/20/2015 None fatigue Frequency of Episodes increasing 01/20/2015 None fatigue Triggers no known associated factors 01/20/2015 None fatigue Alleviating Factors medication 01/20/2015 on cellcept fatigue Pertinent Findings Denies cough 01/20/2015 None fatigue Pertinent Findings Denies dyspnea 01/20/2015 None fatigue Pertinent Findings Denies fever 01/20/2015 None fatigue Pertinent Findings heartburn 01/20/2015 None fatigue Pertinent Findings insomnia 01/20/2015 None fatigue Quality acute 01/20/2015 None fatigue Quality chronic 01/20/2015 lupus flair Hospital Follow Up _ Other: lupus 01/20/2015 None Hospital Follow Up Quality chronic illness 01/20/2015 None Hospital Follow Up Quality acute illness 01/20/2015 None Hospital Follow Up Significant Medical Conditions acute illness 01/20/2015 None Hospital Follow Up Significant Medical Conditions lupus flair 01/20/2015 None fatigue Limitation on Activities moderately limits activities 10/07/2014 None fatigue Frequency of Episodes increasing 10/07/2014 None fatigue Triggers no known associated factors 10/07/2014 None fatigue Alleviating Factors medication 10/07/2014 on cellcept fatigue Quality acute 10/07/2014 None fatigue Quality chronic 10/07/2014 lupus flair fatigue Pertinent Findings Denies cough 10/07/2014 None fatigue Pertinent Findings Denies dyspnea 10/07/2014 None fatigue Pertinent Findings Denies fever 10/07/2014 None fatigue Pertinent Findings heartburn 10/07/2014 None fatigue Pertinent Findings insomnia 10/07/2014 None Advance Directives No Advance Directive data Encounters Encounter Performer Location Codes Date 00216 EST. PATIENT, LEVEL III Diagnosis: Pain in left knee[ICD10: M25.562] Shobha Jarvis MD, [facility] CPT -4: 61475 12/30/2017 28528 EST. PATIENT, LEVEL IV Diagnosis: Pneumonia due to other specified infectious organisms[ICD10: J16.8] Shobha Jarvis MD, [facility] CPT-4: 57125 11/27/2017 ([id number]) Miscellaneous no charge Diagnosis: Cellulitis of right lower limb[ICD10: L03.115] Shobha Jarvis MD, [facility] CPT-4: 14450 11/19/2017 27399 EST. PATIENT, LEVEL III Diagnosis: Cellulitis of right lower limb[ICD10: L03.115] Shobha Jarvis MD, [facility] CPT-4: 28450 11/17/2017 48837 EST. PATIENT, LEVEL IV Diagnosis: Other mucopurulent conjunctivitis, left eye[ICD10: H10.022] Diagnosis: Other allergic rhinitis[ICD10: J30.89] Shobha Jarvis MD, [facility] CPT-4: 61158 11/04/2017 00576 EST. PATIENT, LEVEL III Diagnosis: 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[ICD10 : M32.15] Diagnosis: Fever, unspecified[ICD10: R50.9] Shobha Jarvis MD, [facility] CPT- 4: 77113 09/22/2017 37549 EST. PATIENT, LEVEL IV Diagnosis: 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[ICD10 : M32.15] Shobha Jarvis MD, [facility] CPT-4: 04206 2017 66712 EST. PATIENT, LEVEL IV Diagnosis: Acute suppurative otitis media without spontaneous rupture of ear drum, right ear[ICD10: H66.001] Diagnosis: 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[ICD10 : M32.15] Shobha Jarvis MD, [facility] CPT-4: 39549 2016 43904 EST. PATIENT, LEVEL IV Diagnosis: 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[ICD10 : M32.15] Diagnosis: Hematuria, unspecified[ICD10: R31.9] Diagnosis: Other malaise[ICD10: R53.81] Shobha Jarvis MD, [facility] CPT-4 : 55042 03/27/2017 02451 EST. PATIENT, LEVEL IV Diagnosis: Systemic lupus erythematosus, organ or system involvement unspecified [ICD10: M32.10] Diagnosis: Other fatigue[ICD10: R53.83] Diagnosis: Other malaise[ICD10: R53.81] Diagnosis: Fever, unspecified[ICD10: R50.9] Shobha Jarvis MD, [facility] CPT- 4: 38918 03/04/2017 03528 EST. PATIENT, LEVEL IV Diagnosis: 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[ICD10 : M32.15] Diagnosis: Fever, unspecified[ICD10: R50.9] Shobha Jarvis MD, [facility] CPT- 4: 54873 02/25/2017 96244 EST. PATIENT, LEVEL IV Diagnosis: Other acute sinusitis[ICD10: J01.80] Diagnosis: Acute laryngopharyngitis[ICD10: J06.0] Diagnosis: Other allergic rhinitis[ICD10: J30.89] Shobha Jarvis MD, [facility] CPT-4: 76203 02/20/2017 76642 EST. PATIENT, LEVEL III Diagnosis: 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[ICD10 : M32.15] Shobha Jarvis MD, [facility] CPT-4: 81862 2016 17849 EST. PATIENT, LEVEL III Diagnosis: Systemic lupus erythematosus, organ or system involvement unspecified [ICD10: M32.10] Diagnosis: Paresthesia of skin[ICD10: R20.2] Diagnosis: Dysuria[ICD10: R30.0] Shobha Jarvis MD, [facility] CPT-4: 78288 01/28/2017 48704 EST. PATIENT, LEVEL III Diagnosis: 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[ICD10 : M32.15] Shobha Jarvis MD, [facility] CPT-4: 61910 2016 ([id number]) 14416 EST. PATIENT, LEVEL III Diagnosis: Cough[ICD10: R05] Diagnosis: Acute upper respiratory infection, unspecified[ICD10: J06.9] Ela Jarvis MD, [facility] CPT-4: 65265 10/21/2016 04565 EST. PATIENT, LEVEL IV Diagnosis: Generalized anxiety disorder[ICD10: F41.1] Diagnosis: Systemic lupus erythematosus, organ or system involvement unspecified [ICD10: M32.10] Shobha Jarvis MD, [facility] CPT-4: 91560 09/30/2016 66655 EST. PATIENT, LEVEL IV Diagnosis: Systemic lupus erythematosus, organ or system involvement unspecified [ICD10: M32.10] Shobha Jarvis MD, [facility] CPT-4: 78762 09/17/2016 12052 EST. PATIENT, LEVEL IV Diagnosis: Acute laryngopharyngitis[ICD10: J06.0] Shobha Jarvis MD, [facility] CPT-4: 61358 07/15/2016 65381 EST. PATIENT, LEVEL III Diagnosis: Other acute sinusitis[ICD10: J01.80] Diagnosis: Other allergic rhinitis[ICD10: J30.89] Nancy Jarvis MD, [facility] CPT-4: 54284 07/04/2016 02651 EST. PATIENT, LEVEL IV Diagnosis: Migraine without aura, intractable, without status migrainosus[ICD10 : G43.019] Diagnosis: Paresthesia of skin[ICD10: R20.2] Diagnosis: Dysuria[ICD10: R30.0] Shobha Jarvis MD, [facility] CPT-4: 80728 07/01/2016 29782 EST. PATIENT, LEVEL III Diagnosis: Acute laryngopharyngitis[ICD10: J06.0] Diagnosis: Other acute sinusitis[ICD10: J01.80] Diagnosis: Other allergic rhinitis[ICD10: J30.89] Shobha Jarvis MD [facility] CPT-4: 05518 06/05/2016 97689 EST. PATIENT, LEVEL III Diagnosis: Other allergic rhinitis[ICD10: J30.89] Shobha Jarvis MD, [facility] CPT-4: 92876 04/02/2016 19203 EST. PATIENT, LEVEL IV Diagnosis: Acute suppurative otitis media without spontaneous rupture of ear drum, bilateral[ICD10: H66.003] Diagnosis: Other acute sinusitis[ICD10: J01.80] Shobha Jarvis MD [facility] CPT-4: 02346 03/22/2016 13753 EST. PATIENT, LEVEL III Diagnosis: Systemic lupus erythematosus, organ or system involvement unspecified [ICD10: M32.10] Diagnosis: Hypokalemia[ICD10: E87.6] Diagnosis: Dysphagia, oropharyngeal phase[ICD10: R13.12] Shobha Jarvis MD, [facility] CPT-4: 12894 03/05/2016 ([id number]) Miscellaneous no charge Diagnosis: Rash and other nonspecific skin eruption[ICD10: R21] Ela Jarvis MD [facility] CPT-4: 96724 02/01/2016 ([id number]) 53083 EST. PATIENT, LEVEL III Diagnosis: Acute recurrent maxillary sinusitis[ICD10: J01.01] Ela Jarvis MD, [facility] CPT-4: 99006 01/29/2016 ([id number]) 38622 EST. PATIENT, LEVEL III Diagnosis: Urinary tract infection, site not specified[ICD10: N39.0] Diagnosis: Low back pain[ICD10: M54.5] Ela Jarvis MD, [facility] CPT-4: 04930 12/11/2015 66126 EST. PATIENT, LEVEL IV Diagnosis: Other acute sinusitis[ICD10: J01.80] Shobha Jarvis MD, [facility] CPT-4: 42405 11/09/2015 ([id number]) 49979 EST. PATIENT, LEVEL III Diagnosis: Hypokalemia[ICD10: E87.6] Diagnosis: Localized edema[ICD10: R60.0] Ela Jarvis MD, [facility] CPT-4: 30022 09/12/2015 41989 EST. PATIENT, LEVEL III Diagnosis: Impacted cerumen, bilateral[ICD10: H61.23] Diagnosis: Systemic lupus erythematosus, organ or system involvement unspecified [ICD10: M32.10] Shobha Jarvis MD, [facility] CPT-4: 82237 08/28/2015 01345 EST. PATIENT, LEVEL IV Diagnosis: Impacted cerumen, right ear[ICD10: H61.21] Diagnosis: Other hemorrhoids[ICD10: K64.8] Diagnosis: Other constipation[ICD10: K59.09] Shobha Jarvis MD, [facility] CPT -4: 42457 08/11/2015 47424 EST. PATIENT, LEVEL IV Diagnosis: Acute suppurative otitis media without spontaneous rupture of ear drum, bilateral[ICD10: H66.003] Diagnosis: Diffuse otitis externa, bilateral[ICD10: H60.313] Shobha Jarvis MD, [facility] CPT-4: 18952 07/31/2015 70994 EST. PATIENT, LEVEL IV Diagnosis: Systemic lupus erythematosus, organ or system involvement unspecified [ICD10: M32.10] Diagnosis: Pain in unspecified joint[ICD10: M25.50] Diagnosis: Acute laryngopharyngitis[ICD10: J06.0] Shobha Jarvis MD, [facility] CPT-4: 04206 06/12/2015 ([id number]) 29952 EST. PATIENT, LEVEL III Diagnosis: Systemic lupus erythematosus[ICD9: 710.0] Diagnosis: JOINT PAIN-MULT JOINTS[ICD9: 719.49] Nancy Jarvis MD, [facility] CPT-4: 70288 01/20/2015 ([id number]) OFFICE VISIT, NEW - LEVEL 3 Diagnosis: Systemic lupus erythematosus[ICD9: 710.0] Diagnosis: Gastroesophageal reflux[ICD9: 530.81] Ela Jarvis MD, [facility] CPT-4: 62511 10/07/2014 Plan of Care Planned Activity Notes Codes Status Date Referral: David Chowdhury Referral Initiated 02/12/2018 Visit Plan: Left knee pain - the patient was instructed in appropriate posture, need for weight loss to alleviate abdominal obesity that is worsening the patient's pain.. The pt is to use prn antiinflammatories to manage acute pain. The patient is to call the office if the pain is worsening or does not improve. 12/30/2017 Patient Education: Patient Medication Summary Completed 12/30/2017 Care Plan: MRI JNT OF LWR EXTRE W/O DYE Pending 12/30/2017 Care Plan: Referral Order SNOMED-CT : [id number] Pending 12/30/2017 Visit Plan: Pneumonia - Pt has been diagnosed with pneumonia by physical exam. A chest xray has been ordered as have antibiotics. The pt is aware of the diagnosis and the need for acute treatment of this illness. 11/27/2017 App[facility]ment: [facility] [phone] [id number] (15 min) Moderate 11/27/2017 Patient Education: Patient Medication Summary Completed 11/27/2017 Care Plan: CHEST X-RAY 2VW FRONTAL&LATL LOINC : 81213-0 Pending 11/27/2017 Appointment: Nurse Visit 11/19/2017 Patient Education: Patient Medication Summary Completed 11/19/2017 Visit Plan: Cellulitis - continue with oral antibiotics as previously directed, return to clinic as previously directed, call for acute change in symptoms, worsening redness, warmth, discharge. 11/17/2017 Appointment: [facility] [phone] [facility] (15 min) Moderate 11/17/2017 Patient Education: Patient Medication Summary Completed 11/17/2017 Visit Plan: Conjunctivitis - rx for eye drops/lube sent electronically to the patient's pharmacy. The patient has been instructed to cleanse affected eye with warm washcloth, then place medication into affected eye four times daily. Allergies - chronic - recommended pt to use allergy medication as prescribed. Pt has been counseled as to the appropriate use of the medication. Pt to call if allergy symptoms are not controlled with the medication. If using nasal spray, instructions as follows: Nasal spray- use twice daily, one spray per nostril twice daily, after 30 minutes, rinse out nose with saline spray.. Use opposite hand per nostril to spray in the nasal steroid allergy spray. 11/04/2017 Appointment: Shobha Bland WPtel: [address] [place] [address] (15 min) Moderate 11/04/2017 Patient Education: Patient Medication Summary Completed 11/04/2017 Appointment: Shobha Bland WPtel: [address] [place] [address] (15 min) Moderate 10/07/2017 Visit Plan: Fevers, lupus - will give 1g Rocephin IM and check labs - defer to specialists. Pt is to notify clinic if symptoms do not improve, if they worsen, or with any changes, questions, or concerns. 09/22/2017 Appointment: Shobah Bland WPtel: [facility] (15 min) Moderate 09/22/2017 Patient Education: Patient Medication Summary Completed 09/22/2017 Visit Plan: Lupus, malaise, tremors, flushing - discussed with Dr. Jarvis, and her specialists at -will start Prednisone taper. Pt is to notify clinic if symptoms do not improve, if they worsen, or with any changes, questions, or concerns. 09/15/2017 Appointment: Shobha Bland WPtel: [address] [place] [address] (15 min) Moderate 09/15/2017 Patient Education: Patient Medication Summary Completed 09/15/2017 Visit Plan: Otitis Media - discussed the diagnosis with the patient, script sent electronically to the pharmacy for treatment of the infection. The disease course was discussed and the need to notify the clinic if symptoms do not improve or if they acutely worsen. Lupus - defer to specialist - will notify her specialist and adjust treatment plan as needed. 04/23/2017 Visit Plan: Otitis Media - discussed the diagnosis with the patient, script sent electronically to the pharmacy for treatment of the infection. The disease course was discussed and the need to notify the clinic if symptoms do not improve or if they acutely worsen. Lupus - defer to specialist - will notify her specialist and adjust treatment plan as needed. 04/23/2017 Appointment: Shobha Bland WPtel: [id number] (30 min) Complex 04/23/2017 Patient Education: Patient Medication Summary Completed 04/23/2017 Visit Plan: Malaise, Lupus - will check UA - Pt is to follow up with her specialists at , she is to update clinic of any changes in her current treatment plan. 03/27/2017 Appointment: Sh[facility]ha Bland [facility]Ptel[facility] [phone] [id number] (30 min) Complex 03/27/2017 Patient Education: Patient Medication Summary Completed 03/27/2017 Care Plan: Urine Micro Pending 03/27/2017 Visit Plan: Lupus, fatigue, malaise, sore throat, URI symptoms - Pt was sent for labs and 1L NS IV and Solumedrol 125mg IV x 1 earlier today - she is currently on a taper of her Prednisone 40mg daily currently, getting ready to taper down to 25mg tomorrow - pt states that she is not feeling any better after getting IV medications. Pt states that she has been off of her CellCept and cyclosporin since being on the antibiotics. Pt states that she feels terrible and feels like she does need admitted. She states that she has not felt well since her symptoms started on 02/17. Discussed with Dr. Bradley at - pt is to go to for a follow up appointment with her specialist tomorrow - pt is to update clinic on any change in treatment plan. 03/04/2017 Appointment: Shobha Bland [facility]Ptel[facility] [phone] [id number] (30 min) Complex 03/04/2017 Patient Education: Patient Medication Summary Completed 03/04/2017 Patient Education: Obesity Completed 03/04/2017 Visit Plan: Lupus, malaise, fever - discussed with Dr. Jarvis - noah DC amoxicillin, will start on levaquin 500mg IV x 1 then 250mg PO daily x 5 doses. Will give solumedrol 125mg IV x 1, and normal saline 1L IV. Pt is to start a prednisone taper tomorrow. Pt is to notify clinic if symptoms do not improve, if they worsen, or with any changes, questions, or concerns. 02/25/2017 Appointment: Shobha Bland WPtel: [address] [place], [place] [id number] Nurse Visit 02/25/2017 Patient Education: Patient Medication Summary Completed 02/25/2017 Visit Plan: Discussed with Dr. Jarvis - will give kenalog shot and send RX. Sinusitis - Pt has acute infection - pain in face, maxillary region, Pt informed to use decongestant, RX given to patient, sinus rinses also recommended. Call if symptoms do not show improvement. URI - Pt advised to increase fluids, vitamin C. Discussed natural and expected course of this diagnosis and need to alert me if symptoms do not follow expected course, or if any worse. RX sent to patient's pharmacy. Allergies - chronic - recommended pt to use allergy medication as prescribed. Pt has been counseled as to the appropriate use of the medication. Pt to call if allergy symptoms are not controlled with the medication. If using nasal spray, instructions as follows: Nasal spray- use twice daily, one spray per nostril twice daily, after 30 minutes, rinse out nose with saline spray.. Use opposite hand per nostril to spray in the nasal steroid allergy spray. 02/20/2017 Patient Education: Patient Medication Summary Completed 02/20/2017 Visit Plan: Lupus - improving - discussed with Dr. Jarvis - will have pt continue with Prednisone 25mg daily x 2 weeks. Will repeat labs and notify nephrology and rheumatology. Pt is to notify clinic with any changes in the treatment plan, or symptoms, or with any questions or concerns. 02/04/2017 Patient Education: Patient Medication Summary Completed 02/04/2017 Visit Plan: Lupus Flare, paresthesias - discussed with Dr. Jarvis - will give Kenalog and Rocephin today and start her on a Prednisone taper - pt is to follow up with her specialist and let us know if they make any changes. Pt is to notify clinic if symptoms do not improve, if they worsen, or with any questions or concerns. 01/28/2017 Visit Plan: Lupus Flare, paresthesias - discussed with Dr. Jarvis - will give Kenalog and Rocephin today and start her on a Prednisone taper - pt is to follow up with her specialist and let us know if they make any changes. Pt is to notify clinic if symptoms do not improve, if they worsen, or with any questions or concerns. 01/28/2017 Appointment: Shobha Bland WPtel: [address] [place], [place] [id number] (15 min) Moderate 01/28/2017 Patient Education: Patient Medication Summary Completed 01/28/2017 Appointment: Lab Draw 12/16/2016 Visit Plan: Lupus - chronic for this pt - in acute flare - discussed with Dr. Jarvis - GRAYSON positive for blood and protein - will give Kenalog and Rocephin today and start her on a Prednisone taper - pt is to follow up with her specialist and let us know if they make any changes. Pt is to notify clinic if symptoms do not improve, if they worsen, or with any questions or concerns. 12/13/2016 Visit Plan: Lupus - chronic for this pt - in acute flare - discussed with Dr. Jarvis - GRAYSON positive for blood and protein - will give Kenalog and Rocephin today and start her on a Prednisone taper - pt is to follow up with her specialist and let us know if they make any changes. Pt is to notify clinic if symptoms do not improve, if they worsen, or with any questions or concerns. 12/13/2016 Appointment: Shobha Bland WPtel: [address] [place], [place] [id number] (15 min) Moderate 12/13/2016 Patient Education: Patient Medication Summary Completed 12/13/2016 Visit Plan: URI - Pt advised to increase fluids, vitamin C. Discussed natural and expected course of this diagnosis and need to alert me if symptoms do not follow expected course, or if any worse. RX sent to patient' s pharmacy. 10/21/2016 Appointment: Ela Dodson [facility]Ptel[phone] [place] (15 min) Moderate 10/21/2016 Patient Education: Patient Medication Summary Completed 10/21/2016 Appointment: Ela Dodson WPtel: [phone] [place] (15 min) Moderate 10/14/2016 Visit Plan: Anxiety - the patient has uncontrolled anxiety and will benefit from an SSRI on a daily basis to attempt control of the symptoms of anxiety (tachycardia, overwhelming sensations, stress, insomnia, etc ). I also believe that the patient will benefit from very low dose of prn benzodiazepine. Pt is aware of the risks and benefits of treatment with the above medications. Pt is to check with her specialists before starting xanax. Lupus - defer to information systems security officer 09/30/2016 Appointment: Shobha Bland WPtel: [phone] (30 min) Complex 09/30/2016 Patient Education: Patient Medication Summary Completed 09/30/2016 Patient Education: Obesity Completed 09/30/2016 Visit Plan: Lupus - Dr. Jarvis in to evaluate pt - will increase Prednisone and have pt follow up with her specialists about her Rituxan - will check labs - pt is to notify clinic if symptoms do not improve, if they worsen, or with any questions or concerns. 09/17/2016 Appointment: Shobha Bland WPtel: [phone] (30 min) Complex 09/17/2016 Patient Education: Patient Medication Summary Completed 09/17/2016 Patient Education: Obesity Completed 09/17/2016 Visit Plan: URI - Pt advised to increase fluids, vitamin C. Discussed natural and expected course of this diagnosis and need to alert me if symptoms do not follow expected course, or if any worse. RX sent to patient' s pharmacy. Pt is to monitor symptoms closely and notify clinic if symptoms do not improve, if they worsen, or with any questions or concerns. 07/15/2016 Appointment: Shobha Bland WPtel: [phone] [facility]6[address] (30 min) Complex 07/15/2016 Patient Education: Patient Medication Summary Completed 07/15/2016 Patient Education: Obesity Completed 07/15/2016 Visit Plan: Sinusitis - Pt has acute infection - pain in face, maxillary region, Pt informed to use decongestant, RX given to patient, sinus rinses also recommended. Call if symptoms do not show improvement. Allergies - chronic - recommended pt to use allergy medication as prescribed. Pt has been counseled as to the appropriate use of the medication. Pt to call if allergy symptoms are not controlled with the medication. If using nasal spray , instructions as follows: Nasal spray- use twice daily, one spray per nostril twice daily, after 30 minutes, rinse out nose with saline spray.. Use opposite hand per nostril to spray in the nasal steroid allergy spray. 07/04/2016 Visit Plan: Sinusitis - Pt has acute infection - pain in face, maxillary region, Pt informed to use decongestant, RX given to patient, sinus rinses also recommended. Call if symptoms do not show improvement. Allergies - chronic - recommended pt to use allergy medication as prescribed. Pt has been counseled as to the appropriate use of the medication. Pt to call if allergy symptoms are not controlled with the medication. If using nasal spray , instructions as follows: Nasal spray- use twice daily, one spray per nostril twice daily, after 30 minutes, rinse out nose with saline spray.. Use opposite hand per nostril to spray in the nasal steroid allergy spray. 07/04/2016 Appointment: Shobha Bland WPtel: [address] [place] [address] (15 min) Moderate 07/04/2016 Patient Education: Patient Medication Summary Completed 07/04/2016 Visit Plan: Migraine, parasthesias, malaise - Dr. Jarvis in to see pt, pt given onzetra and phenergan. Pt is to stop her new medication. Pt is to notify clinic if symptoms do not improve, if they worsen, or with any questions or concerns. 07/01/2016 Visit Plan: Migraine, parasthesias, malaise - Dr. Jarvis in to see pt, pt given onzetra and phenergan. Pt is to stop her new medication. Pt is to notify clinic if symptoms do not improve, if they worsen, or with any questions or concerns. 07/01/2016 Appointment: Ela Dodson WPtel: [address] [place], [place] [phone] [place] (10 min) Simple 07/01/2016 Appointment: Shobha Bland WPtel: [facility]5 [phone] (10 min) Simple 07/01/2016 Patient Education: Patient Medication Summary Completed 07/01/2016 Visit Plan: URI - Pt advised to increase fluids, vitamin C. Discussed natural and expected course of this diagnosis and need to alert me if symptoms do not follow expected course, or if any worse. RX sent to patient' s pharmacy. Allergies - chronic - recommended pt to use allergy medication as prescribed. Pt has been counseled as to the appropriate use of the medication. Pt to call if allergy symptoms are not controlled with the medication. If using nasal spray, instructions as follows: Nasal spray- use twice daily, one spray per nostril twice daily, after 30 minutes, rinse out nose with saline spray.. Use opposite hand per nostril to spray in the nasal steroid allergy spray. Sinusitis - Pt has acute infection - pain in face, maxillary region, Pt informed to use decongestant, RX given to patient, sinus rinses also recommended. Call if symptoms do not show improvement. 06/05/2016 Patient Education: Patient Medication Summary Completed 06/05/2016 Patient Education: Obesity Completed 06/05/2016 Visit Plan: Allergies - chronic - recommended pt to use allergy medication as prescribed. Pt has been counseled as to the appropriate use of the medication. Pt to call if allergy symptoms are not controlled with the medication. If using nasal spray, instructions as follows: Nasal spray- use twice daily, one spray per nostril twice daily, after 30 minutes, rinse out nose with saline spray.. Use opposite hand per nostril to spray in the nasal steroid allergy spray. 04/02/2016 Appointment: Ela Dodson WPtel: [address] [place], [place] [phone] (15 min) Moderate 04/02/2016 Patient Education: Patient Medication Summary Completed 04/02/2016 Visit Plan: Spoke with Dr. Jarvis about this pt - will do prednisone taper and send abx Otitis Media - discussed the diagnosis with the patient, script sent electronically to the pharmacy for treatment of the infection. The disease course was discussed and the need to notify the clinic if symptoms do not improve or if they acutely worsen. Sinusitis - Pt has acute infection - pain in face, maxillary region, Pt informed to use decongestant, RX given to patient, sinus rinses also recommended. Call if symptoms do not show improvement. 03/22/2016 Patient Education: Patient Medication Summary Completed 03/22/2016 Referral: Rojelio Polk HPtel:[phone] [facility] Referral Initiated 03/18/2016 Care Plan: Referral Order SNOMED-CT : [id number] Pending 03/14/2016 Visit Plan: Lupus and difficulty swallowing - pt states that she feels like she could have another lupus flare and does not want to have another flare that will put her in the hospital. She states that her joints ache and are stiff, malaise, and that she is having difficulty swallowing. Will check labs, and call her specialist. Pt has nystatin swish and swallow at home - pt is to use as directed. Will refer to Dr. Polk for possible EGD if dysphagia persists. 03/05/2016 Appointment: Ela Dodson WPtel: [facility]9 [address] (30 min) Complex 03/05/2016 Patient Education: Patient Medication Summary Completed 03/05/2016 Visit Plan: Stitches removed x 2 right upper arm 02/01/2016 Appointment: Ela Dodson WPtel: [facility]6 [phone] (30 min) Complex 02/01/2016 Patient Education: Patient Medication Summary Completed 02/01/2016 Visit Plan: Sinusitis - Pt has acute infection - pain in face, maxillary region, Pt informed to use decongestant, RX given to patient, sinus rinses also recommended. Call if symptoms do not show improvement. 01/29/2016 Appointment: Ela Dodson WPtel: [facility]9 [address] (30 min) Complex 01/29/2016 Patient Education: Patient Medication Summary Completed 01/29/2016 Patient Education: Obesity Completed 01/29/2016 Visit Plan: Urinary Tract Infection-discussed natural and expected course of this diagnosis and to alert me if symptoms do not follow expected course, or if any worse. UA positive for infection today in the office- plan to send for culture and will call patient with results. RX sent to patient' s pharmacy. Avoid tub baths, restrictive underwear, etc. Recommend patient start on probiotic while taking the antibiotic to prevent diarrhea. Patient verbalized understanding of plan. 12/11/2015 Appointment: Ela Dodson WPtel: [phone] [phone] (15 min) Moderate 12/11/2015 Patient Education: Patient Medication Summary Completed 12/11/2015 Patient Education: Obesity Completed 12/11/2015 Visit Plan: Sinusitis - Pt has acute infection - pain in face, maxillary region, Pt informed to use decongestant, RX given to patient, sinus rinses also recommended. Call if symptoms do not show improvement. 11/09/2015 Appointment: Ela Dodson WPtel: [phone] [phone] (15 min) Moderate 11/09/2015 Patient Education: Patient Medication Summary Completed 11/09/2015 Visit Plan: Low potassium-check labs today Edema - pt has been advised to elevate legs to prevent dependent edema, compression has been recommended to help to naturally decrease peripheral edema. Diuretic use has been discussed and pt has been instructed in appropriate use of such medication as necessary to further attempt to reduce peripheral edema. 09/12/2015 Visit Plan: Low potassium-check labs today Edema - pt has been advised to elevate legs to prevent dependent edema, compression has been recommended to help to naturally decrease peripheral edema. Diuretic use has been discussed and pt has been instructed in appropriate use of such medication as necessary to further attempt to reduce peripheral edema. 09/12/2015 Patient Education: Patient Medication Summary Completed 09/12/2015 Visit Plan: Lupus - pt sees a specialist at and is getting treatments per their treatment regimen Cerumen Impaction - The impacted cerumen was removed with the use of the ear currette and water pick. The patient tolerated the procedure without incident and had improvement in hearing. The wax was removed by the practitioner due to the wax being more complicated to remove, and staff was needed to assist the removal of the wax by holding the ear, and keeping patient stabilized during the removal process. 08/28/2015 Appointment: Shobha Bland WPtel: [phone] [facility] (15 min) Moderate 08/28/2015 Patient Education: Patient Medication Summary Completed 08/28/2015 Patient Education: Obesity Completed 08/28/2015 Appointment: [facility] [phone] [phone] (30 min) Complex 08/25/2015 Visit Plan: Cerumen Impaction - Dry, touching or very near the tympanic membrane - Pt is to use sweet oil drops to ear to help soften cerumen. Pt is to notify clinic if symptoms do not improve, or with any concerns. Constipation - uncontrolled - I have discussed with the patient the need for adequate fiber and water intake to facilitate soft, easily passed stools. The pt noted understanding of our conversation. I have given the patient a recipe for "power pudding" - equal parts, bran flakes, prune juice, and apple sauce. The pt is to call if symptoms not improved on this regimen. Hemorrhoids - discussed natural and expected course of this diagnosis and to alert me if symptoms do not resolve or if any worse. RX sent to patient's pharmacy and instructed on use. Recommend patient maintain an adequate fiber diet and increase water intake to facilitate soft bowel movements. Patient verbalized understanding of plan. 08/11/2015 Appointment: (15 min) Moderate 08/11/2015 Patient Education: Patient Medication Summary Completed 08/11/2015 Patient Education: Obesity Completed 08/11/2015 Visit Plan: Otitis Media - discussed the diagnosis with the patient, script sent electronically to the pharmacy for treatment of the infection. The disease course was discussed and the need to notify the clinic if symptoms do not improve or if they acutely worsen. Otitis Externa - pt given RX for antibiotic drops for the use in pt's affected ear. Pt to call if symptoms are not improving or if symptoms worsen acutely. 07/31/2015 Patient Education: Patient Medication Summary Completed 07/31/2015 Patient Education: Obesity Completed 07/31/2015 Visit Plan: Lupus - Dr. Jarvis in to see pt. Will check labs, Pt sees a specialist at [facility]. URI - Pt advised to increase fluids, vitamin C. Discussed natural and expected course of this diagnosis and need to alert me if symptoms do not follow expected course, or if any worse. RX sent to patient' s pharmacy. 06/12/2015 Visit Plan: Lupus - Dr. Jarvis in to see pt. Will check labs, Pt sees a specialist at [facility]. URI - Pt advised to increase fluids, vitamin C. Discussed natural and expected course of this diagnosis and need to alert me if symptoms do not follow expected course, or if any worse. RX sent to patient' s pharmacy. 06/12/2015 Patient Education: Patient Medication Summary Completed 06/12/2015 Care Plan: Kenia ZAMARRIPA Pending 06/12/2015 Visit Plan: Lupus nephritis-hospital follow up-recent biopsy-patient to follow up at Joint pain-celebrex d/c'd-start pennsaid 01/20/2015 Appointment: (30 min) Complex 01/20/2015 Patient Education: Patient Medication Summary Completed 01/20/2015 Appointment: (30 min) Complex 01/13/2015 Visit Plan: Lupus-sees specialist at -on cellcept-call with any concerns or change GERD-continue carafate-start prilosec BID 10/07/2014 Appointment: New Patient 10/07/2014 Patient Education: Patient Medication Summary Completed 10/07/2014 Referral: David Chowdhury Referral Appointment Confirmed Ref[facility]: [phone] [facility] [place] Referral Initiated Instructions Comment . Conjunctivitis - rx for eye drops/lube sent electronically to the patient's pharmacy. The patient has been instructed to cleanse affected eye with warm washcloth, then place medication into affected eye four times daily. Allergies - chronic - recommended pt to use allergy medication as prescribed. Pt has been counseled as to the appropriate use of the medication. Pt to call if allergy symptoms are not controlled with the medication. If using nasal spray, instructions as follows: Nasal spray- use twice daily, one spray per nostril twice daily, after 30 minutes, rinse out nose with saline spray.. Use opposite hand per nostril to spray in the nasal steroid allergy spray. PREDNISONE - TAKE 60MG TWICE A DAY FOR 2 DAYS, THEN 40MG TWICE A DAY FOR 2 DAYS, THEN 40MG DAILY FOR 1 WEEK, THEN 30MG DAILY FOR 1 WEEK. AMOXICILLIN - ANTIBIOTIC . Spoke with Dr. Jarvis about this pt - will do prednisone taper and send abx Otitis Media - discussed the diagnosis with the patient, script sent electronically to the pharmacy for treatment of the infection. The disease course was discussed and the need to notify the clinic if symptoms do not improve or if they acutely worsen. Sinusitis - Pt has acute infection - pain in face, maxillary region, Pt informed to use decongestant, RX given to patient, sinus rinses also recommended. Call if symptoms do not show improvement. . URI - Pt advised to increase fluids, vitamin C. Discussed natural and expected course of this diagnosis and need to alert me if symptoms do not follow expected course, or if any worse. RX sent to patient's pharmacy. Pt is to monitor symptoms closely and notify clinic if symptoms do not improve, if they worsen, or with any questions or concerns. . Allergies - chronic - recommended pt to use allergy medication as prescribed. Pt has been counseled as to the appropriate use of the medication. Pt to call if allergy symptoms are not controlled with the medication. If using nasal spray, instructions as follows: Nasal spray- use twice daily, one spray per nostril twice daily, after 30 minutes, rinse out nose with saline spray.. Use opposite hand per nostril to spray in the nasal steroid allergy spray. . Anxiety - the patient has uncontrolled anxiety and will benefit from an SSRI on a daily basis to attempt control of the symptoms of anxiety (tachycardia, overwhelming sensations, stress, insomnia, etc). I also believe that the patient will benefit from very low dose of prn benzodiazepine. Pt is aware of the risks and benefits of treatment with the above medications. Pt is to check with her specialists before starting xanax. Lupus - defer to information systems security officer . Otitis Media - discussed the diagnosis with the patient, script sent electronically to the pharmacy for treatment of the infection. The disease course was discussed and the need to notify the clinic if symptoms do not improve or if they acutely worsen. Otitis Externa - pt given RX for antibiotic drops for the use in pt's affected ear. Pt to call if symptoms are not improving or if symptoms worsen acutely. Will check chest x-ray today Steroid and rocephin shot today. Will start on prednisone taper, cefdinir and z-pack breathing treatments 4 times a day x 2 days, then 3 times a day x 2 days, then twice a day x 2 days, then as needed. If you feel like things are getting worse go to the ER . Pneumonia - Pt has been diagnosed with pneumonia by physical exam. A chest xray has been ordered as have antibiotics. The pt is aware of the diagnosis and the need for acute treatment of this illness. . Urinary Tract Infection-discussed natural and expected course of this diagnosis and to alert me if symptoms do not follow expected course, or if any worse. UA positive for infection today in the office-plan to send for culture and will call patient with results. RX sent to patient's pharmacy. Avoid tub baths, restrictive underwear, etc. Recommend patient start on probiotic while taking the antibiotic to prevent diarrhea. Patient verbalized understanding of plan. Kenalog 80mg shot today Rocephin 1g shot today Start Z-pack today Tomorrow - increase prednisone to 60mg x 2 days, then 40mg x 2 days, then 20mg x 2 days, then back to your current dose I called and left a message with [facility] - If they want me to change your prednisone instructions I will let you know. . Otitis Media - discussed the diagnosis with the patient, script sent electronically to the pharmacy for treatment of the infection. The disease course was discussed and the need to notify the clinic if symptoms do not improve or if they acutely worsen. Lupus - defer to specialist - will notify her specialist and adjust treatment plan as needed. Kenalog 80mg shot today Rocephin 1g shot today Start Z-pack today Tomorrow - increase prednisone to 60mg x 2 days, then 40mg x 2 days, then 20mg x 2 days, then back to your current dose I called and left a message with [facility] - If they want me to change your prednisone instructions I will let you know. . Otitis Media - discussed the diagnosis with the patient, script sent electronically to the pharmacy for treatment of the infection. The disease course was discussed and the need to notify the clinic if symptoms do not improve or if they acutely worsen. Lupus - defer to specialist - will notify her specialist and adjust treatment plan as needed. . Sinusitis - Pt has acute infection - pain in face, maxillary region, Pt informed to use decongestant, RX given to patient, sinus rinses also recommended. Call if symptoms do not show improvement. . Low potassium-check labs today Edema - pt has been advised to elevate legs to prevent dependent edema, compression has been recommended to help to naturally decrease peripheral edema. Diuretic use has been discussed and pt has been instructed in appropriate use of such medication as necessary to further attempt to reduce peripheral edema. . Low potassium-check labs today Edema - pt has been advised to elevate legs to prevent dependent edema, compression has been recommended to help to naturally decrease peripheral edema. Diuretic use has been discussed and pt has been instructed in appropriate use of such medication as necessary to further attempt to reduce peripheral edema. Will send for IV levaquin and IV steroid - will check labs Stop your amoxicillin Tomorrow start Levaquin 250mg PO daily x 5 doses. Stay off of your cellcept and cyclosporin until after finished with levquin Tomorrow start Prednisone: 60mg x 3 days, then 40mg x 3 days, then 25mg x3 days , then back to your 13mg daily. . Lupus, malaise, fever - discussed with Dr. Jarvis - will DC amoxicillin, will start on levaquin 500mg IV x 1 then 250mg PO daily x 5 doses. Will give solumedrol 125mg IV x 1, and normal saline 1L IV. Pt is to start a prednisone taper tomorrow. Pt is to notify clinic if symptoms do not improve, if they worsen, or with any changes, questions, or concerns. . Lupus - Dr. Jarvis in to see pt. Will check labs, Pt sees a specialist at . URI - Pt advised to increase fluids, vitamin C. Discussed natural and expected course of this diagnosis and need to alert me if symptoms do not follow expected course, or if any worse. RX sent to patient's pharmacy. . Lupus - Dr. Jarvis in to see pt. Will check labs, Pt sees a specialist at . URI - Pt advised to increase fluids, vitamin C. Discussed natural and expected course of this diagnosis and need to alert me if symptoms do not follow expected course, or if any worse. RX sent to patient's pharmacy. 1 Gram of rocephin (antibiotic) today 80mg of kenalog today Tomorrow start Prednisone: 60mg x 3 days, then 40mg x 3 days, then 25mg x3 days , then back to your 13mg daily. I will call your specialist tomorrow, and your mom tomorrow Increase lyrica to 100mg three times a day. . Lupus Flare, paresthesias - discussed with Dr. Jarvis - will give Kenalog and Rocephin today and start her on a Prednisone taper - pt is to follow up with her specialist and let us know if they make any changes. Pt is to notify clinic if symptoms do not improve, if they worsen, or with any questions or concerns. 1 Gram of rocephin (antibiotic) today 80mg of kenalog today Tomorrow start Prednisone: 60mg x 3 days, then 40mg x 3 days, then 25mg x3 days , then back to your 13mg daily. I will call your specialist tomorrow, and your mom tomorrow Increase lyrica to 100mg three times a day. . Lupus Flare, paresthesias - discussed with Dr. Jarvis - will give Kenalog and Rocephin today and start her on a Prednisone taper - pt is to follow up with her specialist and let us know if they make any changes. Pt is to notify clinic if symptoms do not improve, if they worsen, or with any questions or concerns. . Malaise, Lupus - will check UA - Pt is to follow up with her specialists at , she is to update clinic of any changes in her current treatment plan. . URI - Pt advised to increase fluids, vitamin C. Discussed natural and expected course of this diagnosis and need to alert me if symptoms do not follow expected course, or if any worse. RX sent to patient's pharmacy. . Sinusitis - Pt has acute infection - pain in face, maxillary region, Pt informed to use decongestant, RX given to patient, sinus rinses also recommended. Call if symptoms do not show improvement. Allergies - chronic - recommended pt to use allergy medication as prescribed. Pt has been counseled as to the appropriate use of the medication. Pt to call if allergy symptoms are not controlled with the medication. If using nasal spray, instructions as follows: Nasal spray- use twice daily, one spray per nostril twice daily, after 30 minutes, rinse out nose with saline spray.. Use opposite hand per nostril to spray in the nasal steroid allergy spray. . Sinusitis - Pt has acute infection - pain in face, maxillary region, Pt informed to use decongestant, RX given to patient, sinus rinses also recommended. Call if symptoms do not show improvement. Allergies - chronic - recommended pt to use allergy medication as prescribed. Pt has been counseled as to the appropriate use of the medication. Pt to call if allergy symptoms are not controlled with the medication. If using nasal spray, instructions as follows: Nasal spray- use twice daily, one spray per nostril twice daily, after 30 minutes, rinse out nose with saline spray.. Use opposite hand per nostril to spray in the nasal steroid allergy spray. . URI - Pt advised to increase fluids, vitamin C. Discussed natural and expected course of this diagnosis and need to alert me if symptoms do not follow expected course, or if any worse. RX sent to patient's pharmacy. Allergies - chronic - recommended pt to use allergy medication as prescribed. Pt has been counseled as to the appropriate use of the medication. Pt to call if allergy symptoms are not controlled with the medication. If using nasal spray, instructions as follows: Nasal spray- use twice daily, one spray per nostril twice daily, after 30 minutes, rinse out nose with saline spray.. Use opposite hand per nostril to spray in the nasal steroid allergy spray. Sinusitis - Pt has acute infection - pain in face, maxillary region, Pt informed to use decongestant, RX given to patient, sinus rinses also recommended. Call if symptoms do not show improvement. . Lupus, fatigue, malaise, sore throat, URI symptoms - Pt was sent for labs and 1L NS IV and Solumedrol 125mg IV x 1 earlier today - she is currently on a taper of her Prednisone 40mg daily currently, getting ready to taper down to 25mg tomorrow - pt states that she is not feeling any better after getting IV medications. Pt states that she has been off of her CellCept and cyclosporin since being on the antibiotics. Pt states that she feels terrible and feels like she does need admitted. She states that she has not felt well since her symptoms started on 02/17. Discussed with Dr. Bradley at - pt is to go to for a follow up appointment with her specialist tomorrow - pt is to update clinic on any change in treatment plan. . 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 Lupus - pt sees a specialist at and is getting treatments per their treatment regimen Cerumen Impaction - The impacted cerumen was removed with the use of the ear currette and water pick. The patient tolerated the procedure without incident and had improvement in hearing. The wax was removed by the practitioner due to the wax being more complicated to remove, and staff was needed to assist the removal of the wax by holding the ear, and keeping patient stabilized during the removal process. CONTINUE CARAFATE INCREASE PRILOSEC (OMEPRAZOLE) TO TWICE DAILY CALL IF SYMPTOMS DO NOT RESOLVE . Lupus-sees specialist at -on cellcept-call with any concerns or change GERD-continue carafate-start prilosec BID . Migraine, parasthesias, malaise - Dr. Jarvis in to see pt, pt given onzetra and phenergan. Pt is to stop her new medication. Pt is to notify clinic if symptoms do not improve, if they worsen, or with any questions or concerns. . Migraine, parasthesias, malaise - Dr. Jarvis in to see pt, pt given onzetra and phenergan. Pt is to stop her new medication. Pt is to notify clinic if symptoms do not improve, if they worsen, or with any questions or concerns. 1 Gram of rocephin (antibiotic) today 80mg of kenalog today Tomorrow start Prednisone: 60mg x 3 days, then 40mg x 3 days, then 25mg x3 days , then back to your 13mg daily. Let us know how you are feeling on Friday.. Lupus - chronic for this pt - in acute flare - discussed with Dr. Jarvis - UA positive for blood and protein - will give Kenalog and Rocephin today and start her on a Prednisone taper - pt is to follow up with her specialist and let us know if they make any changes. Pt is to notify clinic if symptoms do not improve, if they worsen, or with any questions or concerns. 1 Gram of rocephin (antibiotic) today 80mg of kenalog today Tomorrow start Prednisone: 60mg x 3 days, then 40mg x 3 days, then 25mg x3 days , then back to your 13mg daily. Let us know how you are feeling on Friday.. Lupus - chronic for this pt - in acute flare - discussed with Dr. Jarvis - GRAYSON positive for blood and protein - will give Kenalog and Rocephin today and start her on a Prednisone taper - pt is to follow up with her specialist and let us know if they make any changes. Pt is to notify clinic if symptoms do not improve, if they worsen, or with any questions or concerns. . Fevers, lupus - will give 1g Rocephin IM and check labs - defer to specialists. Pt is to notify clinic if symptoms do not improve, if they worsen, or with any changes, questions, or concerns. . Sinusitis - Pt has acute infection - pain in face, maxillary region, Pt informed to use decongestant, RX given to patient, sinus rinses also recommended. Call if symptoms do not show improvement. . Stitches removed x 2 right upper arm . Lupus and difficulty swallowing - pt states that she feels like she could have another lupus flare and does not want to have another flare that will put her in the hospital. She states that her joints ache and are stiff, malaise, and that she is having difficulty swallowing. Will check labs, and call her specialist. Pt has nystatin swish and swallow at home - pt is to use as directed. Will refer to Dr. Polk for possible EGD if dysphagia persists. Sweet oil drops, and heat to ear. . Cerumen Impaction - Dry, touching or very near the tympanic membrane - Pt is to use sweet oil drops to ear to help soften cerumen. Pt is to notify clinic if symptoms do not improve, or with any concerns. Constipation - uncontrolled - I have discussed with the patient the need for adequate fiber and water intake to facilitate soft, easily passed stools. The pt noted understanding of our conversation. I have given the patient a recipe for "power pudding" - equal parts, bran flakes, prune juice, and apple sauce. The pt is to call if symptoms not improved on this regimen. Hemorrhoids - discussed natural and expected course of this diagnosis and to alert me if symptoms do not resolve or if any worse. RX sent to patient's pharmacy and instructed on use. Recommend patient maintain an adequate fiber diet and increase water intake to facilitate soft bowel movements. Patient verbalized understanding of plan. . Lupus, malaise, tremors, flushing - discussed with Dr. Jarvis, and her specialists at -will start Prednisone taper. Pt is to notify clinic if symptoms do not improve, if they worsen, or with any changes, questions, or concerns. . Lupus - improving - discussed with Dr. Jarvis - will have pt continue with Prednisone 25mg daily x 2 weeks. Will repeat labs and notify nephrology and rheumatology. Pt is to notify clinic with any changes in the treatment plan, or symptoms, or with any questions or concerns. . Discussed with Dr. Jarvis - will give kenalog shot and send RX. Sinusitis - Pt has acute infection - pain in face, maxillary region, Pt informed to use decongestant, RX given to patient, sinus rinses also recommended. Call if symptoms do not show improvement. URI - Pt advised to increase fluids, vitamin C. Discussed natural and expected course of this diagnosis and need to alert me if symptoms do not follow expected course, or if any worse. RX sent to patient's pharmacy. Allergies - chronic - recommended pt to use allergy medication as prescribed. Pt has been counseled as to the appropriate use of the medication. Pt to call if allergy symptoms are not controlled with the medication. If using nasal spray, instructions as follows: Nasal spray- use twice daily, one spray per nostril twice daily, after 30 minutes, rinse out nose with saline spray.. Use opposite hand per nostril to spray in the nasal steroid allergy spray. . Cellulitis - continue with oral antibiotics as previously directed, return to clinic as previously directed, call for acute change in symptoms, worsening redness, warmth, discharge. Appointment with Dr. Chowdhury at 2PM on 01/13/18 MRI at [facility] at 9:30 - metallic free clothing and no make up . Left knee pain - the patient was instructed in appropriate posture, need for weight loss to alleviate abdominal obesity that is worsening the patient's pain.. The pt is to use prn antiinflammatories to manage acute pain. The patient is to call the office if the pain is worsening or does not improve. . Lupus - Dr. Jarvis in to evaluate pt - will increase Prednisone and have pt follow up with her specialists about her Rituxan - will check labs - pt is to notify clinic if symptoms do not improve, if they worsen, or with any questions or concerns.
--- OUTSIDE RECORDS SUMMARY | 2018-01-20 11:27 | XMS REPORT | CCD ---
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 Name Role Phone PP Unavailable CCM Unavailable Summary Purpose Interface Exchange Insurance Providers Payer name Policy type / Coverage type Covered green party ID Effective Begin Date Effective End Date Blue Cross [facility] Blue Cross/Blue [facility] [id number] 2015 Unknown Family history Brother Diagnosis Age At Onset Asthma Unknown defect Unknown Mother Diagnosis Age At Onset Diabetes mellitus Type 2 Unknown Hypertension Unknown Depression Unknown Hyperlipidemia Unknown Social History Social History Element Codes Description Effective Dates Marital status Unknown Single 09/30/2016 Number of children Unknown 0 10/07/[address]: 522421130 Never smoker 10/07/[address]: 668344853 Never drinks alcohol 10/07/2014 Allergies, Adverse Reactions, [...] Fill Instructions tramadol 50 mg tablet RxNorm: 102417 1 Tablet(s) PO BID as needed for pain 12/30/2017 01/03/2018 Active Voltaren 1 % topical gel RxNorm: 526375 1 Application TOP TID as needed 12/30/2017 No Stop Date Active Nexium 40 mg capsule,delayed release RxNorm: 468728 TAKE ONE CAPSULE BY MOUTH ONCE DAILY DIRECTED FOR STOMACH 12/09/2017 03/08/2018 Active prednisone 10 mg tablet RxNorm: 102453 Tablet(s) PO UD 2017 No Stop Date Active 60,60,50,50,40,40,30,30,20,20,10,10,5 every other day x 2 doses Zithromax Z-John 250 mg tablet RxNorm: 935599 1 Tablet(s) PO UD 11/27/2017 No Stop Date Active albuterol sulfate 2.5 mg/3 mL (0.083 %) solution for nebulization RxNorm: 106517 3 Milliliter(s) INH UD 11/27/2017 No Stop Date Active cefdinir 300 mg capsule RxNorm: 656029 1 Capsule(s) PO BID 12/06/2017 Inactive ceftriaxone 500 mg solution for injection RxNorm: 5928115 1 Milliliter(s) Inj 11/27/2017 11/27/2017 Inactive Kenalog 40 mg/mL suspension for injection RxNorm: 1487033 1 Milliliter(s) Inj 11/27/2017 11/27/2017 Inactive ceftriaxone 500 mg solution for injection RxNorm: 4667308 2 Inj 11/17/2017 11/17/2017 Inactive doxycycline hyclate 100 mg capsule RxNorm: 1524738 1 Capsule(s) PO BID 11/17/2017 11/26/2017 Inactive Flonase Allergy Relief 50 mcg/actuation nasal spray, suspension RxNorm: 8839315 1 [place] NASAL BID as needed 11/04/2017 No Stop Date Active ciprofloxacin 0.3 % eye drops RxNorm: 384034 2 Drop(s) ophthalmic (eye) Q2H while awake x 2 days, then Q4H x 5 days 11/04/2017 No Stop Date Active Lyrica 100 mg capsule RxNorm: 450290 1 Capsule(s) PO TID and daily PRN 10/27/2017 01/24/2018 Active Keflex 500 mg capsule RxNorm: 945589 1 Capsule(s) PO TID 201710/09/2017 Inactive Keflex 500 mg capsule RxNorm: 655540 1 Capsule(s) PO TID 201710/02/2017 Inactive ceftriaxone 500 mg solution for injection RxNorm: 8526141 Inj 09/22/2017 09/22/2017 Inactive prednisone 10 mg tablet RxNorm: 998337 Tablet(s) PO 09/15/2017 No Stop Date Active 6, 6,5,5,4,4,3,3,2,2,1,1 then back to 5mg daily Kenalog 40 mg/mL suspension for injection RxNorm: 9567961 1.5 Milliliter(s) Inj 09/15/2017 09/15/2017 Inactive Lyrica 100 mg capsule RxNorm: 381538 1 Capsule(s) PO TID 201710/26/2017 Inactive Lyrica 100 mg capsule RxNorm: 243368 1 Capsule(s) PO TID 201709/21/2017 Inactive Lunesta 1 mg tablet RxNorm: 811700 1 Tablet(s) PO QHS 201706/14/2017 Inactive Lunesta 1 mg tablet RxNorm: 054252 1 Tablet(s) PO QHS 201705/15/2017 Inactive Zithromax Z-John 250 mg tablet RxNorm: 951400 1 Tablet(s) PO UD 04/23/2017 04/27/2017 Inactive Lyrica 100 mg capsule RxNorm: 568360 1 Capsule(s) PO TID 201606/23/2017 Inactive prednisone 20 mg tablet RxNorm: 848745 Tablet(s) PO 60mg x 3 days, then 40mg x 3 days, then 25mg x 3 days, then back to 13mg daily 02/25/2017 No Stop Date Active Levaquin 250 mg tablet RxNorm: 232848 1 Tablet(s) PO daily 03/01/2017 Inactive amoxicillin 500 mg capsule RxNorm: 874605 1 Capsule(s) PO TID 02/20/2017 02/20/2017 Inactive Kenalog 40 mg/mL suspension for injection RxNorm: 0904803 Milliliter(s) Inj 02/20/2017 02/20/2017 Inactive Augmentin 500 mg-125 mg tablet RxNorm: 192946 1 Tablet(s) PO TID 02/20/2017 02/20/2017 Inactive Xanax 0.25 mg tablet RxNorm: 678024 1 Tablet(s) PO TID as needed anxiety 02/05/2017 No Stop Date Active prednisone 5 mg tablet RxNorm: 425796 1 Tablet(s) PO daily to take with the 20mg pill to equal 25mg daily x 2 weeks. 02/04/2017 No Stop Date Active prednisone 20 mg tablet RxNorm: 828462 1 Tablet(s) PO daily to take with the 5mg to equal 25mg daily x 2 weeks. 02/04/2017 No Stop Date Active Kenalog 40 mg/mL suspension for injection RxNorm: 8348876 Milliliter(s) Inj 01/28/2017 01/28/2017 Inactive ceftriaxone 500 mg solution for injection RxNorm: 4741252 Inj 01/28/2017 01/28/2017 Inactive prednisone 20 mg tablet RxNorm: 624855 Tablet(s) PO 60mg x 3 days, then 40mg x 3 days 01/28/2017 02/24/2017 Inactive ceftriaxone 500 mg solution for injection RxNorm: 8534033 Inj 12/13/2016 12/13/2016 Inactive Kenalog 40 mg/mL suspension for injection RxNorm: 4353833 Milliliter(s) Inj 12/13/2016 12/13/2016 Inactive prednisone 20 mg tablet RxNorm: 742893 Tablet(s) PO 60mg x 3 days, then 40mg x 3 days 12/13/2016 01/27/2017 Inactive Zithromax Z-John 250 mg tablet RxNorm: 679116 1 Tablet(s) PO UD 10/21/2016 10/25/2016 Inactive fluoxetine 10 mg tablet RxNorm: 684453 1 Tablet(s) PO BID 09/3008/27/2017 Inactive Xanax 0.25 mg tablet RxNorm: 255023 1 Tablet(s) PO TID as needed anxiety 09/30/2016 02/04/2017 Inactive prednisone 20 mg tablet RxNorm: 038330 Tablet(s) PO 60mg x 1 week, then 40mg x 1 week, then back to 20mg 09/17/2016 No Stop Date Active Kenalog 40 mg/mL suspension for injection RxNorm: 0006442 Milliliter(s) Inj 09/17/2016 09/17/2016 Inactive amoxicillin 500 mg capsule RxNorm: 467999 1 Capsule(s) PO TID 07/15/2016 07/24/2016 Inactive Zithromax Z-John 250 mg tablet RxNorm: 937289 1 Tablet(s) PO UD 07/04/2016 10/20/2016 Inactive promethazine 25 mg/mL injection solution RxNorm: 392670 Milliliter(s) Inj 07/01/2016 07/01/2016 Inactive promethazine 25 mg tablet RxNorm: 879841 1 Tablet(s) PO TID as needed 07/01/2016 07/10/2016 Inactive Flonase Allergy Relief 50 mcg/actuation nasal spray, suspension RxNorm: 7355567 1 [place] NASAL BID 06/05/2016 No Stop Date Active Zithromax Z-John 250 mg tablet RxNorm: 275992 Tablet(s) PO UD 07/03/2016 Inactive amoxicillin 500 mg capsule RxNorm: 340098 1 Capsule(s) PO TID 03/22/2016 04/04/2016 Inactive Kenalog 40 mg/mL suspension for injection RxNorm: 7978491 2 Milliliter(s) Inj 03/22/2016 03/22/2016 Inactive Diflucan 150 mg tablet RxNorm: 559828 1 Tablet(s) PO daily 03/09/2016 Inactive Diflucan 150 mg tablet RxNorm: 796645 1 Tablet(s) PO daily 03/04/2016 Inactive Keflex 500 mg capsule RxNorm: 603560 1 Capsule(s) PO TID 201502/04/2016 Inactive Keflex 500 mg capsule RxNorm: 264643 1 Capsule(s) PO TID 201512/17/2015 Inactive Augmentin 500 mg-125 mg tablet RxNorm: 070691 1 Tablet(s) PO TID 11/09/2015 11/18/2015 Inactive Anusol-HC 25 mg rectal suppository RxNorm: 3304916 1 Suppository RTL daily as needed pain 08/11/2015 No Stop Date Active Miralax 17 gram/dose oral powder RxNorm: 708607 1 taper PO 05/201512/08/2015 Inactive Ciprodex 0.3 %-0.1 % ear drops,suspension RxNorm: 946744 2 Drop(s) OTIC BID 07/31/2015 08/06/2015 Inactive amoxicillin 500 mg capsule RxNorm: 989355 1 Capsule(s) PO TID 07/31/2015 08/09/2015 Inactive Augmentin 500 mg-125 mg tablet RxNorm: 956807 1 Tablet(s) PO TID 07/07/2015 07/16/2015 Inactive Augmentin 500 mg-125 mg tablet RxNorm: 665715 1 Tablet(s) PO TID 07/07/2015 07/06/2015 Inactive Zithromax Z-John 250 mg tablet RxNorm: 846557 Tablet(s) PO UD 08/27/2015 Inactive Pennsaid 20 mg/gram/actuation (2 %) topical soln in metered -dose pump RxNorm: 0009136 2 Application TOP BID 01/20/201502/18 Inactive acetazolamide 250 mg tablet RxNorm: 242147 1 Tablet(s) PO BID 01/20/2015 02/18/2015 Inactive [place]aid 20 mg/gram/actuation (2 %) topical soln in metered -dose pump RxNorm: 3035241 2 Application TOP BID 01/20/201501/19 Inactive cefuroxime axetil 500 mg tablet RxNorm: 037157 1 Tablet(s) PO BID 12/23/2014 12/22/2014 Inactive cefuroxime axetil 500 mg tablet RxNorm: 758709 1 Tablet(s) PO BID 12/23/2014 01/01/2015 Inactive trazodone 50 mg tablet RxNorm: 329236 1-2 Tablet(s) PO QHS 11/05/2014 Inactive mycophenolate mofetil 500 mg tablet RxNorm: 121597 2 Tablet(s) PO BID No Start Date Active Vitamin D2 50,000 unit capsule RxNorm: 833039 1 Capsule(s) PO QW No Start Date Active sucralfate 1 gram tablet RxNorm: 610013 1 Gram(s) PO QID No Start Date Active ferrous fumarate 325 mg (106 mg iron) tablet RxNorm: 133533 1 Tablet(s) PO daily No Start Date Active aspirin, buffered 81 mg tablet,delayed release RxNorm: 570175 1 Tablet(s) PO daily No Start Date Active potassium chloride ER 20 mEq tablet,extended release RxNorm: 802364 1 Tablet(s) PO BID No Start Date Active Calcium 500 + D (D3) oral RxNorm: 862913 oral No Start Date Active tramadol 50 mg tablet RxNorm: 884276 1 Tablet(s) PO BID as needed No Start Date Active prednisone 10 mg tablet RxNorm: 196589 1 Tablet(s) PO daily No Start Date Active hydroxychloroquine 200 mg tablet RxNorm: 569680 1 Tablet(s) PO BID No Start Date Active tacrolimus 1 mg capsule RxNorm: 417498 1 Capsule(s) PO daily No Start Date 06/23/2016 Inactive amitriptyline 25 mg tablet RxNorm: 961051 1 Tablet(s) PO daily No Start Date 06/11/2015 Inactive Lyrica 75 mg capsule RxNorm: 814168 1 Capsule(s) PO daily No Start Date 02/03/2017 Inactive celecoxib 100 mg capsule RxNorm: 078694 1 Capsule(s) PO daily No Start Date 01/19/2015 Inactive fluoxetine 10 mg tablet RxNorm: 384359 1 Tablet(s) PO daily No Start Date 09/29/2016 Inactive Lyrica 100 mg capsule RxNorm: 647428 1 Capsule(s) PO TID No Start Date 03/26/2017 Inactive Nexium 40 mg capsule,delayed release RxNorm: 696551 1 Capsule(s) PO daily Started by specialist No Start Date 12/08/2017 Inactive Medication Administered Medication Codes Instructions Start Date Status ceftriaxone 500 mg solution for injection RxNorm: 8170444 1Milliliter 11/27/2017 No longer Active Kenalog 40 mg/mL suspension for injection RxNorm: 5432059 1Milliliter 11/27/2017 No longer Active ceftriaxone 500 mg solution for injection RxNorm: 3392403 2 11/17/2017 No longer Active ceftriaxone 500 mg solution for injection RxNorm: 9805819 09/22/2017 No longer Active Kenalog 40 mg/mL suspension for injection RxNorm: 0059152 1.5Milliliter 09/15/2017 No longer Active Kenalog 40 mg/mL suspension for injection RxNorm: 3002868 Milliliter 02/20/2017 No longer Active ceftriaxone 500 mg solution for injection RxNorm: 3416963 01/28/2017 No longer Active Kenalog 40 mg/mL suspension for injection RxNorm: 6098595 Milliliter 01/28/2017 No longer Active ceftriaxone 500 mg solution for injection RxNorm: 3433393 12/13/2016 No longer Active Kenalog 40 mg/mL suspension for injection RxNorm: 5461594 Milliliter 12/13/2016 No longer Active Kenalog 40 mg/mL suspension for injection RxNorm: 4269632 Milliliter 09/17/2016 No longer Active promethazine 25 mg/mL injection solution RxNorm: 248739 Milliliter 07/01/2016 No longer Active Kenalog 40 mg/mL suspension for injection RxNorm: 5007929 2Milliliter 03/22/2016 No longer Active Immunizations Vaccine [...] to follow 09/22/2017 Random Urine Protein/Creatinine Ratio [id number] U Prot 719.0 mg/dl 09/22/2017 Random Urine Protein/Creatinine Ratio Irn0913 U CREAT 273.0 mg/dL 09/22/2017 Random Urine Protein/Creatinine Ratio Igr3050 R MTP/Creat Ratio 2.63 09/22/2017 Urine Culture Ucult Preliminary NO Growth Day 1 09/17/2017 Urine Culture Ucult Complete NO Growth Day 2 09/17/2017 Comp Metabolic Xzr467 NA 136 mEq/L 09/16/2017 Comp Metabolic Nts375 K 4.3 mEq/L 09/16/2017 Comp Metabolic Xdj554 CL 105 mEq/L 09/16/2017 Comp Metabolic Nix594 CO2 23.0 mEq/L 09/16/2017 Comp Metabolic Aqe508 ANION GAP 12 09/16/2017 Comp Metabolic Wjh147 GLUCOSE 115 mg/dL 09/16/2017 Comp Metabolic Rkx452 Creat 1.1 mg/dL 09/16/2017 Comp Metabolic Xow695 eGFR 68 ml/min/1.73m2 09/16/2017 Comp Metabolic Htj292 BUN 9 mg/dL 09/16/2017 Comp Metabolic Fzs542 B/C Ratio 8.3 Ratio 09/16/2017 Comp Metabolic Guw737 CALCIUM 8.9 mg/dL 09/16/2017 Comp Metabolic Vwa852 ALK PHOS 65 U/L 09/16/2017 Comp Metabolic Ibb206 AST(SGOT) 15 U/L 09/16/2017 Comp Metabolic Swf070 ALT(SGPT) 14 U/L 09/16/2017 Comp Metabolic Gey876 BILI T 0.4 mg/dL 09/16/2017 Comp Metabolic Exw689 ALBUMIN 3.5 g/dL 09/16/2017 Comp Metabolic Cjf586 TPRO 6.0 g/dL 09/16/2017 Comp Metabolic Kwn159 GLOB 2.5 g/dL 09/16/2017 Comp Metabolic Aex239 A/G Ratio 1.4 Ratio 09/16/2017 Comp Metabolic Iwt675 Osmo 272 mOsmo 09/16/2017 Random Urine Protein/Creatinine Ratio Hhh1311 U Prot 242.0 mg/dl 09/16/2017 Random Urine Protein/Creatinine Ratio Ujr7279 U CREAT 79.0 mg/dL 09/16/2017 Random Urine Protein/Creatinine Ratio Wpw1276 R MTP/Creat Ratio 3.06 09/16/2017 Urinalysis Ord28 [...] U-VOL VOLUME SUFFICIENT (10mL) 09/15/2017 Urinalysis Ord28 U-Yeast NEGATIVE 09/15/2017 Urinalysis Ord28 U-Com Urine saved if culture needed (specimen acceptable for 48 hours from collection if refrigerated) 09/15/2017 Cbc With Differential Ord2 WBC 7.35 K/ul 09/15/2017 Cbc With Differential Ord2 RBC 4.97 M/ul 09/15/2017 Cbc With Differential Ord2 HGB 12.3 g/dl 09/15/2017 Cbc With Differential Ord2 Neut% 59.4 % 09/15/2017 Cbc With Differential Ord2 HCT 38.3 % 09/15/2017 Cbc With Differential Ord2 MCV 77.1 fl 09/15/2017 Cbc With Differential Ord2 Lymph% 27.2 % 09/15/2017 Cbc With Differential Ord2 MCH 24.7 pg 09/15/2017 Cbc With Differential Ord2 [place]% 11.3 % 09/15/2017 Cbc With Differential Ord2 MCHC 32.1 pg 09/15/2017 Cbc With Differential Ord2 Eos% 1.6 % 09/15/2017 Cbc With Differential Ord2 PLT 334 K/ul 09/15/2017 Cbc With Differential Ord2 Baso% 0.5 % 09/15/2017 Cbc With Differential Ord2 RDW 17.7 % 09/15/2017 Cbc With Differential Ord2 Neut ABS# 4.36 K/ul 09/15/2017 Cbc With Differential Ord2 Lymph ABS# 2.00 K/ul 09/15/2017 Cbc With Differential Ord2 [place] ABS# 0.8 K/ul 09/15/2017 Cbc With Differential Ord2 Eos ABS# 0.1 K/ul 09/15/2017 Cbc With Differential Ord2 Baso ABS# 0.0 K/ul 09/15/2017 Comp Metabolic Ebm795 NA 142 mEq/L 04/23/2017 Comp Metabolic Hlk293 K 3.6 mEq/L 04/23/2017 Comp Metabolic Hfk626 CL 108 mEq/L 04/23/2017 Comp Metabolic Bey298 CO2 23.0 mEq/L 04/23/2017 Comp Metabolic Ffr258 ANION GAP 15 04/23/2017 Comp Metabolic Gcl876 GLUCOSE 93 mg/dL 04/23/2017 Comp Metabolic Ghz700 Creat 0.9 mg/dL 04/23/2017 Comp Metabolic Snw566 eGFR 82 ml/min/1.73m2 04/23/2017 Comp Metabolic Ibn418 BUN 10 mg/dL 04/23/2017 Comp Metabolic Uzl887 B/C Ratio 10.9 Ratio 04/23/2017 Comp Metabolic Lha219 CALCIUM 8.5 mg/dL 04/23/2017 Comp Metabolic Koe910 ALK PHOS 51 U/L 04/23/2017 Comp Metabolic Qzj488 AST(SGOT) 17 U/L 04/23/2017 Comp Metabolic Tpp201 ALT(SGPT) 15 U/L 04/23/2017 Comp Metabolic Bhg235 BILI T 0.2 mg/dL 04/23/2017 Comp Metabolic Kht544 ALBUMIN 3.3 g/dL 04/23/2017 Comp Metabolic Jrf242 TPRO 5.7 g/dL 04/23/2017 Comp Metabolic Ylt050 GLOB 2.4 g/dL 04/23/2017 Comp Metabolic Eqf962 A/G Ratio 1.4 Ratio 04/23/2017 Comp Metabolic Vow270 Osmo 282 mOsmo 04/23/2017 Cbc With Differential Ord2 WBC 6.58 K/ul 04/23/2017 Cbc With Differential Ord2 RBC 4.75 M/ul 04/23/2017 Cbc With Differential Ord2 HGB 11.9 g/dl 04/23/2017 Cbc With Differential Ord2 Neut% 58.5 % 04/23/2017 Cbc With Differential Ord2 HCT 37.5 % 04/23/2017 Cbc With Differential Ord2 MCV 78.9 fl 04/23/2017 Cbc With Differential Ord2 Lymph% 28.9 % 04/23/2017 Cbc With Differential Ord2 MCH 25.1 pg 04/23/2017 Cbc With Differential Ord2 [place]% 9.7 % 04/23/2017 Cbc With Differential Ord2 MCHC 31.7 pg 04/23/2017 Cbc With Differential Ord2 Eos% 2.6 % 04/23/2017 Cbc With Differential Ord2 PLT 247 K/ul 04/23/2017 Cbc With Differential Ord2 Baso% 0.3 % 04/23/2017 Cbc With Differential Ord2 RDW 16.7 % 04/23/2017 Cbc With Differential Ord2 Neut ABS# 3.85 K/ul 04/23/2017 Cbc With Differential Ord2 Lymph ABS# 1.90 K/ul 04/23/2017 Cbc With Differential Ord2 [place] ABS# 0.6 K/ul 04/23/2017 Cbc With Differential Ord2 Eos ABS# 0.2 K/ul 04/23/2017 Cbc With Differential Ord2 Baso ABS# 0.0 K/ul 04/23/2017 Urine Culture Ucult Preliminary NO Growth Day 1 03/31/2017 Urine Culture Ucult Complete NO Growth Day 2 03/31/2017 Random Urine Protein/Creatinine Ratio Zdt4122 U Prot 427.0 mg/dl 03/28/2017 Random Urine Protein/Creatinine Ratio Igh0956 U CREAT 99.0 mg/dL 03/28/2017 Random Urine Protein/Creatinine Ratio Jsj1818 R MTP/Creat Ratio 4.31 03/28/2017 Comp Metabolic Tnu936 NA 141 mEq/L 02/04/2017 Comp Metabolic Lby920 K 4.7 mEq/L 02/04/2017 Comp Metabolic Wgf710 CL 108 mEq/L 02/04/2017 Comp Metabolic Nkc861 CO2 25.0 mEq/L 02/04/2017 Comp Metabolic Kvk604 ANION GAP 13 02/04/2017 Comp Metabolic Qxx037 GLUCOSE 119 mg/dL 02/04/2017 Comp Metabolic Lje187 Creat 1.1 mg/dL 02/04/2017 Comp Metabolic Ppd399 eGFR 66 ml/min/1.73m2 02/04/2017 Comp Metabolic Yhj966 BUN 23 mg/dL 02/04/2017 Comp Metabolic Olv547 B/C Ratio 20.7 Ratio 02/04/2017 Comp Metabolic Rit443 CALCIUM 9.3 mg/dL 02/04/2017 Comp Metabolic Kqx305 ALK PHOS 66 U/L 02/04/2017 Comp Metabolic Fez655 AST(SGOT) 11 U/L 02/04/2017 Comp Metabolic Iob834 ALT(SGPT) 12 U/L 02/04/2017 Comp Metabolic Gsh606 BILI T 0.2 mg/dL 02/04/2017 Comp Metabolic Vca881 ALBUMIN 3.7 g/dL 02/04/2017 Comp Metabolic Fjl996 TPRO 6.0 g/dL 02/04/2017 Comp Metabolic Wgv237 GLOB 2.3 g/dL 02/04/2017 Comp Metabolic Kms429 A/G Ratio 1.6 Ratio 02/04/2017 Comp Metabolic Zyg041 Osmo 286 mOsmo 02/04/2017 Urinalysis U-Color Yellow [...] Urinalysis U-VOL VOLUME SUFFICIENT (10mL) 02/04/2017 Urinalysis U-Yeast NEGATIVE 02/04/2017 Urinalysis U-Com Urine saved if culture needed (specimen acceptable for 48 hours from collection if refrigerated) 02/04/2017 Random Urine Protein/Creatinine Ratio U Prot 181.0 mg/dl 02/04 Random Urine Protein/Creatinine Ratio U CREAT 73.0 mg/dL 02/04 Random Urine Protein/Creatinine Ratio R MTP/Creat Ratio 2.48 02/04/2017 Cbc With Differential Ord2 WBC 14.37 K/ul 02/04/2017 Cbc With Differential Ord2 RBC 4.57 M/ul 02/04/2017 Cbc With Differential Ord2 HGB 11.5 g/dl 02/04/2017 Cbc With Differential Ord2 Neut% 81.7 % 02/04/2017 Cbc With Differential Ord2 HCT 35.2 % 02/04/2017 Cbc With Differential Ord2 MCV 77.0 fl 02/04/2017 Cbc With Differential Ord2 Lymph% 13.4 % 02/04/2017 Cbc With Differential Ord2 MCH 25.2 pg 02/04/2017 Cbc With Differential Ord2 [place]% 4.7 % 02/04/2017 Cbc With Differential Ord2 MCHC 32.7 pg 02/04/2017 Cbc With Differential Ord2 Eos% 0.1 % 02/04/2017 Cbc With Differential Ord2 PLT 335 K/ul 02/04/2017 Cbc With Differential Ord2 Baso% 0.1 % 02/04/2017 Cbc With Differential Ord2 RDW 17.4 % 02/04/2017 Cbc With Differential Ord2 Neut ABS# 11.75 K/ul 02/04/2017 Cbc With Differential Ord2 Lymph ABS# 1.92 K/ul 02/04/2017 Cbc With Differential Ord2 [place] ABS# 0.7 K/ul 02/04/2017 Cbc With Differential Ord2 Eos ABS# 0.0 K/ul 02/04/2017 Cbc With Differential Ord2 Baso ABS# 0.0 K/ul 02/04/2017 Culture Urine [id number] URINE CULTURE SEE NOTES 02/03/2017 Urine Culture Ucult Complete >100,000 col/ml aerobic growth sent to ref lab 01/31/2017 Comp Metabolic Lqk242 NA 135 mEq/L 01/30/2017 Comp Metabolic Vgz613 K 4.8 mEq/L 01/30/2017 Comp Metabolic Ywt618 CL 104 mEq/L 01/30/2017 Comp Metabolic Gwr256 CO2 22.0 mEq/L 01/30/2017 Comp Metabolic Fvw746 ANION GAP 14 01/30/2017 Comp Metabolic Skn290 GLUCOSE 107 mg/dL 01/30/2017 Comp Metabolic Zzs373 Creat 1.4 mg/dL 01/30/2017 Comp Metabolic Xgl903 eGFR 51 ml/min/1.73m2 01/30/2017 Comp Metabolic Las378 BUN 24 mg/dL 01/30/2017 Comp Metabolic Gsr270 B/C Ratio 17.3 Ratio 01/30/2017 Comp Metabolic Ztn462 CALCIUM 8.7 mg/dL 01/30/2017 Comp Metabolic Jgc457 ALK PHOS 54 U/L 01/30/2017 Comp Metabolic Ger879 AST(SGOT) 14 U/L 01/30/2017 Comp Metabolic Jce708 ALT(SGPT) 15 U/L 01/30/2017 Comp Metabolic Yyf929 BILI T 0.2 mg/dL 01/30/2017 Comp Metabolic Kha264 ALBUMIN 3.6 g/dL 01/30/2017 Comp Metabolic Vjr048 TPRO 6.1 g/dL 01/30/2017 Comp Metabolic Mrb547 GLOB 2.5 g/dL 01/30/2017 Comp Metabolic Atj191 A/G Ratio 1.5 Ratio 01/30/2017 Comp Metabolic Nfo510 Osmo 275 mOsmo 01/30/2017 Random Urine Protein/Creatinine Ratio Vpo6471 U Prot 115.0 mg/dl 01/30/2017 Random Urine Protein/Creatinine Ratio Odd7659 U CREAT 135.0 mg/dL 01/30/2017 Random Urine Protein/Creatinine Ratio Rmg0571 R MTP/Creat Ratio 0.85 01/30/2017 Urinalysis Ord28 [...] U-Com Culture to follow 01/30/2017 Comp Metabolic Ppt243 NA 138 mEq/L 01/29/2017 Comp Metabolic Xdg521 K 4.6 mEq/L 01/29/2017 Comp Metabolic Ieg724 CL 107 mEq/L 01/29/2017 Comp Metabolic Ykq574 CO2 21.0 mEq/L 01/29/2017 Comp Metabolic Woa009 ANION GAP 15 01/29/2017 Comp Metabolic Ire272 GLUCOSE 91 mg/dL 01/29/2017 Comp Metabolic Ngm636 Creat 1.8 mg/dL 01/29/2017 Comp Metabolic Tls660 eGFR 38 ml/min/1.73m2 01/29/2017 Comp Metabolic Ukq748 BUN 26 mg/dL 01/29/2017 Comp Metabolic Qbu526 B/C Ratio 14.6 Ratio 01/29/2017 Comp Metabolic Ywb596 CALCIUM 8.8 mg/dL 01/29/2017 Comp Metabolic Vmt969 ALK PHOS 58 U/L 01/29/2017 Comp Metabolic Mzw790 AST(SGOT) 14 U/L 01/29/2017 Comp Metabolic Teu806 ALT(SGPT) 14 U/L 01/29/2017 Comp Metabolic Uat513 BILI T 0.2 mg/dL 01/29/2017 Comp Metabolic Amc765 ALBUMIN 3.4 g/dL 01/29/2017 Comp Metabolic Mxu378 TPRO 5.6 g/dL 01/29/2017 Comp Metabolic Icy170 GLOB 2.2 g/dL 01/29/2017 Comp Metabolic Bsg228 A/G Ratio 1.6 Ratio 01/29/2017 Comp Metabolic Sov051 Osmo 280 mOsmo 01/29/2017 Cbc With Differential Ord2 WBC 7.36 K/ul 01/28/2017 Cbc With Differential Ord2 RBC 4.51 M/ul 01/28/2017 Cbc With Differential Ord2 HGB 11.3 g/dl 01/28/2017 Cbc With Differential Ord2 HCT 35.4 % 01/28/2017 Cbc With Differential Ord2 Neut% 55.9 % 01/28/2017 Cbc With Differential Ord2 MCV 78.5 fl 01/28/2017 Cbc With Differential Ord2 Lymph% 33.4 % 01/28/2017 Cbc With Differential Ord2 MCH 25.1 pg 01/28/2017 Cbc With Differential Ord2 [place]% 9.6 % 01/28/2017 Cbc With Differential Ord2 MCHC 31.9 pg 01/28/2017 Cbc With Differential Ord2 Eos% 0.8 % 01/28/2017 Cbc With Differential Ord2 Baso% 0.3 % 01/28/2017 Cbc With Differential Ord2 PLT 315 K/ul 01/28/2017 Cbc With Differential Ord2 RDW 17.6 % 01/28/2017 Cbc With Differential Ord2 Neut ABS# 4.11 K/ul 01/28/2017 Cbc With Differential Ord2 Lymph ABS# 2.46 K/ul 01/28/2017 Cbc With Differential Ord2 [place] ABS# 0.7 K/ul 01/28/2017 Cbc With Differential Ord2 Eos ABS# 0.1 K/ul 01/28/2017 Cbc With Differential Ord2 Baso ABS# 0.0 K/ul 01/28/2017 Urine Culture Ucult Preliminary NO Growth Day 1 09/19/2016 Urine Culture Ucult Complete NO Growth Day 2 09/19/2016 Comp Metabolic Ght712 NA 140 mEq/L 09/17/2016 Comp Metabolic Qwk878 K 3.8 mEq/L 09/17/2016 Comp Metabolic Mrm480 CL 110 mEq/L 09/17/2016 Comp Metabolic Rzi587 CO2 20.0 mEq/L 09/17/2016 Comp Metabolic Nrm114 ANION GAP 14 09/17/2016 Comp Metabolic Ezk581 GLUCOSE 88 mg/dL 09/17/2016 Comp Metabolic Qoj219 Creat 1.3 mg/dL 09/17/2016 Comp Metabolic Thm868 eGFR 54 ml/min/1.73m2 09/17/2016 Comp Metabolic Elf105 BUN 14 mg/dL 09/17/2016 Comp Metabolic Awz705 B/C Ratio 10.6 Ratio 09/17/2016 Comp Metabolic Juj458 CALCIUM 8.1 mg/dL 09/17/2016 Comp Metabolic Xvy697 ALK PHOS 59 U/L 09/17/2016 Comp Metabolic Ulq355 AST(SGOT) 19 U/L 09/17/2016 Comp Metabolic Lvl974 ALT(SGPT) 18 U/L 09/17/2016 Comp Metabolic Ixt144 BILI T 0.3 mg/dL 09/17/2016 Comp Metabolic Ldk680 ALBUMIN 3.0 g/dL 09/17/2016 Comp Metabolic Xmq127 TPRO 5.1 g/dL 09/17/2016 Comp Metabolic Rug072 GLOB 2.1 g/dL 09/17/2016 Comp Metabolic Yof166 A/G Ratio 1.4 Ratio 09/17/2016 Comp Metabolic Xvz127 Osmo 279 mOsmo 09/17/2016 Hgb & Hct Ord65 HGB 10.3 g/dl 09/17/2016 Hgb & Hct Ord65 HCT 32.2 % 09/17/2016 C RAP A SC [id number] Strep A Negative 07/15/2016 Urine Culture Ucult [...] 88.3 fl 03/22/2016 Cbc With Differential Ord2 [place]% 11.7 % 03/22/2016 Cbc With Differential Ord2 [...] 1.77 K/ul 03/22/2016 Cbc With Differential Ord2 [place] ABS# 0.6 K/ul 03/22/2016 Cbc With Differential Ord2 Eos ABS# 0.0 K/ul 03/22/2016 Cbc With Differential Ord2 Baso ABS# 0.0 K/ul 03/22/2016 Comp Metabolic Osk225 NA 131 mEq/L 03/22/2016 Comp Metabolic Fhd656 K 4.1 mEq/L 03/22/2016 Comp Metabolic Bdl389 CL 106 mEq/L 03/22/2016 Comp Metabolic Rna361 CO2 18.0 mEq/L 03/22/2016 Comp Metabolic Vtu311 ANION GAP 11 03/22/2016 Comp Metabolic Aiz260 GLUCOSE 84 mg/dL 03/22/2016 Comp Metabolic Iyq069 Creat 1.6 mg/dL 03/22/2016 Comp Metabolic Vuw393 eGFR 44 ml/min/1.73m2 03/22/2016 Comp Metabolic Swq078 BUN 14 mg/dL 03/22/2016 Comp Metabolic Qim386 B/C Ratio 8.9 Ratio 03/22/2016 Comp Metabolic Mry145 CALCIUM 8.2 mg/dL 03/22/2016 Comp Metabolic Atm413 ALK PHOS 39 U/L 03/22/2016 Comp Metabolic Cod860 AST(SGOT) 16 U/L 03/22/2016 Comp Metabolic Cdc302 ALT(SGPT) 15 U/L 03/22/2016 Comp Metabolic Frp953 BILI T 0.3 mg/dL 03/22/2016 Comp Metabolic Rqi329 ALBUMIN 2.6 g/dL 03/22/2016 Comp Metabolic Oxs080 TPRO 4.5 g/dL 03/22/2016 Comp Metabolic Bia074 GLOB 1.9 g/dL 03/22/2016 Comp Metabolic Buy702 A/G Ratio 1.3 Ratio 03/22/2016 Comp Metabolic Rto366 Osmo 262 mOsmo 03/22/2016 Magnesium Ord90 Mag 2.1 mg/dL 03/05/2016 Sed Rate Ord21 ESR 50 mm/hr 03/05/2016 C-Reactive Protein Qnt Crqnt CRP 0.1 mg/dl 03/05/2016 Cbc With Differential Ord2 WBC 4.41 K/ul 03/05/2016 Cbc With Differential Ord2 RBC 3.18 M/ul 03/05/2016 Cbc With Differential Ord2 HGB 9.2 g/dl 03/05/2016 Cbc With Differential Ord2 Neut% 58.4 % 03/05/2016 Cbc With Differential Ord2 HCT 28.9 % 03/05/2016 Cbc With Differential Ord2 MCV 90.9 fl 03/05/2016 Cbc With Differential Ord2 Lymph% 30.2 % 03/05/2016 Cbc With Differential Ord2 MCH 28.9 pg 03/05/2016 Cbc With Differential Ord2 [place]% 10.0 % 03/05/2016 Cbc With Differential Ord2 MCHC 31.8 pg 03/05/2016 Cbc With Differential Ord2 Eos% 0.5 % 03/05/2016 Cbc With Differential Ord2 PLT 237 K/ul 03/05/2016 Cbc With Differential Ord2 Baso% 0.9 % 03/05/2016 Cbc With Differential Ord2 RDW 16.3 % 03/05/2016 Cbc With Differential Ord2 Neut ABS# 2.58 K/ul 03/05/2016 Cbc With Differential Ord2 Lymph ABS# 1.33 K/ul 03/05/2016 Cbc With Differential Ord2 [place] ABS# 0.4 K/ul 03/05/2016 Cbc With Differential Ord2 Eos ABS# 0.0 K/ul 03/05/2016 Cbc With Differential Ord2 Baso ABS# 0.0 K/ul 03/05/2016 Comp Metabolic Agi307 NA 138 mEq/L 03/05/2016 Comp Metabolic Czr353 K 3.9 mEq/L 03/05/2016 Comp Metabolic Owq280 CL 105 mEq/L 03/05/2016 Comp Metabolic Wtt333 CO2 27.0 mEq/L 03/05/2016 Comp Metabolic Cxb369 ANION GAP 10 03/05/2016 Comp Metabolic Zdv694 GLUCOSE 95 mg/dL 03/05/2016 Comp Metabolic Uoe450 Creat 1.4 mg/dL 03/05/2016 Comp Metabolic Onr746 eGFR 53 ml/min/1.73m2 03/05/2016 Comp Metabolic Xsv695 BUN 20 mg/dL 03/05/2016 Comp Metabolic Qds708 B/C Ratio 14.7 Ratio 03/05/2016 Comp Metabolic Viz462 CALCIUM 7.9 mg/dL 03/05/2016 Comp Metabolic Cno504 ALK PHOS 43 U/L 03/05/2016 Comp Metabolic Wtu443 AST(SGOT) 14 U/L 03/05/2016 Comp Metabolic Pyp111 ALT(SGPT) 15 U/L 03/05/2016 Comp Metabolic Gvx950 BILI T 0.2 mg/dL 03/05/2016 Comp Metabolic Xfn772 ALBUMIN 2.2 g/dL 03/05/2016 Comp Metabolic Rut719 TPRO 4.0 g/dL 03/05/2016 Comp Metabolic Ced532 GLOB 1.9 g/dL 03/05/2016 Comp Metabolic Akt043 A/G Ratio 1.2 Ratio 03/05/2016 Comp Metabolic Vqa843 Osmo 278 mOsmo 03/05/2016 Urine Culture Ucult Preliminary NO Growth Day 1 12/13/2015 Urine Culture Ucult Complete NO Growth Day 2 12/13/2015 C-Reactive Protein Qnt Crqnt CRP 2.3 mg/dl 06/13/2015 Cpk Ord61 CPK 55 U/L 06/13/2015 Comp Metabolic Zhp107 NA 137 mEq/L 06/13/2015 Comp Metabolic Kiz608 K 3.7 mEq/L 06/13/2015 Comp Metabolic Xmg562 CL 106 mEq/L 06/13/2015 Comp Metabolic Zcf247 CO2 20.0 mEq/L 06/13/2015 Comp Metabolic Zjx071 ANION GAP 15 06/13/2015 Comp Metabolic Kcd589 GLUCOSE 89 mg/dL 06/13/2015 Comp Metabolic Bbq920 Creat 0.8 mg/dL 06/13/2015 Comp Metabolic Tdc964 eGFR 94 ml/min/1.73m2 06/13/2015 Comp Metabolic Nxb060 BUN 11 mg/dL 06/13/2015 Comp Metabolic Wmd528 B/C Ratio 13.3 Ratio 06/13/2015 Comp Metabolic Cnk336 CALCIUM 8.3 mg/dL 06/13/2015 Comp Metabolic Lnz649 ALK PHOS 64 U/L 06/13/2015 Comp Metabolic Vye273 AST(SGOT) 15 U/L 06/13/2015 Comp Metabolic Dot266 ALT(SGPT) 15 U/L 06/13/2015 Comp Metabolic Gin100 BILI T 0.3 mg/dL 06/13/2015 Comp Metabolic Oiy640 ALBUMIN 3.0 g/dL 06/13/2015 Comp Metabolic Pdk062 TPRO 5.5 g/dL 06/13/2015 Comp Metabolic Ewz974 GLOB 2.5 g/dL 06/13/2015 Comp Metabolic Tip586 A/G Ratio 1.2 Ratio 06/13/2015 Comp Metabolic Tag116 Osmo 273 mOsmo 06/13/2015 Sed Rate Ord21 [...] 28.7 pg 06/13/2015 Cbc With Differential Ord2 [place]% 6.3 % 06/13/2015 Cbc With Differential Ord2 MCHC 30.3 pg 06/13/2015 Cbc With Differential Ord2 Eos% 0.4 % 06/13/2015 Cbc With Differential Ord2 Baso% 0.2 % 06/13/2015 Cbc With Differential Ord2 PLT 259 K/ul 06/13/2015 Cbc With Differential Ord2 RDW 16.1 % 06/13/2015 Cbc With Differential Ord2 Neut ABS# 10.69 K/ul 06/13/2015 Cbc With Differential Ord2 Lymph ABS# 1.29 K/ul 06/13/2015 Cbc With Differential Ord2 [place] ABS# 0.8 K/ul 06/13/2015 Cbc With Differential [...] yellow 07/04/2016 None Full Exam - General [facility] Constitutional general appearance Evidence of Distress: [...] CPT-4: J3301 09/15/2017 THER/PROPH/DIAG INJ SC/IM CPT-4: 78081 04/23/2017 TRIAMCINOLONE ACET INJ NOS CPT-4: J3301 04/23/2017 ROCEPHIN, PER 250 MG CPT-4: J0696 04/23/2017 TRIAMCINOLONE ACET INJ NOS CPT-4: J3301 02/20/2017 TRIAMCINOLONE ACET INJ NOS CPT-4: J3301 01/28/2017 ROCEPHIN, PER 250 MG CPT-4: J0696 01/28/2017 TRIAMCINOLONE ACET INJ NOS CPT-4: J3301 12/13/2016 ROCEPHIN, PER 250 MG CPT-4: J0696 12/13/2016 THER/PROPH/DIAG INJ SC/IM CPT-4: 28184 09/17/2016 TRIAMCINOLONE ACET INJ NOS CPT-4: J3301 09/17/2016 PROMETHAZINE HCL INJECTION CPT-4: J2550 07/01/2016 TRIAMCINOLONE ACET INJ NOS CPT-4: J3301 03/22/2016 URINALYSIS NONAUTO W/O SCOPE CPT-4: 06563 12/11/2015 Vital Signs Date Vital 12/30/2017 Blood Pressure 1: 164/88 Code : 8480-6 Blood Pressure 1: 140/90 Code: 8480-6 BMI: 45.0 Code: 98463-0 Heart Rate 1: 88 bpm Height: 5'8" SpO2: 97% Weight: 296 lbs 11/27/2017 Blood Pressure 1: 128/72 Code : 8480-6 Heart Rate 1: 102 bpm Height: SpO2: 98% Weight: 11/19/2017 BMI: 44.2 Code: 82963-4 Height: 5'8" Weight: 291 lbs 11/17/2017 Blood Pressure 1: 126/72 Code : 8480-6 BMI: 44.2 Code : 83784-3 Heart Rate 1 : 98 bpm Height: 5'8" SpO2: 98% Weight: 291 lbs 11/04/2017 Blood Pressure 1: 134/80 Code : 8480-6 Heart Rate 1: 96 bpm Height: SpO2: 98% Weight: 09/22/2017 Blood Pressure 1: 124/70 Code : 8480-6 Heart Rate 1: 98 bpm SpO2: 98% Temperature: 37.2 (C) / 98.9 (F) 09/15/2017 Blood Pressure 1: 128/78 Code : 8480-6 BMI: 43.5 Code : 11193-8 Heart Rate 1 : 104 bpm Height: 5'8" SpO2: 98% Weight: 286 lbs 04/23/2017 Blood Pressure 1: 120/78 Code : 8480-6 BMI: 44.1 Code : 73087-1 Heart Rate 1 : 102 bpm Height: 5'8" SpO2: 98% Temperature: 37.3 (C) / 99.1 (F) Weight: 290 lbs 03/27/2017 Blood Pressure 1: 138/76 Code : 8480-6 Heart Rate 1: 84 bpm Height: SpO2: 96% Temperature: 37.3 (C) / 99.2 (F) Weight: 03/04/2017 Blood Pressure 1: 132/84 Code : 8480-6 BMI: 42.6 Code : 18259-1 Heart Rate 1 : 73 bpm Height: [...] Code : 8480-6 BMI: 42.6 Code : 22722-4 Heart Rate 1 : 92 bpm Height: 5'8" SpO2: 99% Temperature: 37.4 (C) / 99.4 (F) Weight: 280 lbs 01/28/2017 Blood Pressure 1: 128/60 Code : 8480-6 BMI: 42.6 Code : 14889-8 Heart Rate 1 : 78 bpm Height: 5'8" SpO2: 97% Weight: 280 lbs 12/13/2016 Blood Pressure 1: 144/82 Code : 8480-6 BMI: 42.1 Code : 05566-8 Heart Rate 1 : 77 bpm Height: 5'8" SpO2: 98% Weight: 277 lbs 10/21/2016 Blood Pressure 1: 136/84 Code : 8480-6 Heart Rate 1: 63 bpm Height: 5'8" SpO2: 98% Temperature: 37.3 (C) / 99.1 (F) Weight: 09/30/2016 Blood Pressure 1: 128/74 Code : 8480-6 BMI: 41.1 Code : 29875-6 Heart Rate 1 : 65 bpm Height: 5'8" SpO2: 99% Weight: 270 lbs 09/17/2016 Blood Pressure 1: 162/72 Code : 8480-6 BMI: 41.1 Code : 94597-5 Heart Rate 1 : 86 bpm Height: 5'8" SpO2: 92% Weight: 270 lbs 07/15/2016 Blood Pressure 1: 122/64 Code : 8480-6 BMI: 39.5 Code : 59355-7 Heart Rate 1 : 89 bpm Height: 5'8" SpO2: 98% Temperature: 37.2 (C) / 99.0 (F) Weight: 260 lbs 07/04/2016 Blood Pressure 1: 136/82 Code : 8480-6 Heart Rate 1: 104 bpm Height: SpO2: 98% Weight: 07/01/2016 Blood Pressure 1: 138/72 Code : 8480-6 Heart Rate 1: 101 bpm SpO2: 98% 06/05/2016 Blood Pressure 1: 132/82 Code : 8480-6 BMI: 38.6 Code : 24579-7 Heart Rate 1 : 98 bpm Height: 5'8" SpO2: 97% Temperature: 36.8 (C) / 98.2 (F) Weight: 254 lbs 04/02/2016 Blood Pressure 1: 148/92 Code : 8480-6 BMI: 40.3 Code : 51936-1 Heart Rate 1 : 112 bpm Height: 5'8" SpO2: 98% Weight: 265 lbs 03/22/2016 Blood Pressure 1: 134/72 Code : 8480-6 BMI: 40.3 Code : 99416-7 Heart Rate 1 : 120 bpm Height: 5'8" SpO2: 98% Temperature: 38.7 (C) / 101.6 (F) Weight: 265 lbs 03/05/2016 Blood Pressure 1: 144/66 Code : 8480-6 BMI: 40.4 Code : 70784-5 Heart Rate 1 : 82 bpm Height: 5'8" SpO2: 92% Weight: 266 lbs 01/29/2016 Blood Pressure 1: 128/86 Code : 8480-6 BMI: 42.4 Code : 36896-9 Heart Rate 1 : 95 bpm Height: 5'8" SpO2: 96% Temperature: 37.5 (C) / 99.5 (F) Weight: 279 lbs 12/11/2015 Blood Pressure 1: 130/80 Code : 8480-6 BMI: 41.7 Code : 72899-3 Heart Rate 1 : 79 bpm Height: 5'8" SpO2: 96% Weight: 274 lbs 11/09/2015 Blood Pressure 1: 136/80 Code : 8480-6 BMI: 38.8 Code : 51728-3 Heart Rate 1 : 80 bpm Height: 5'8" SpO2: 99% Weight: 255 lbs 09/12/2015 Blood Pressure 1: 158/88 Code : 8480-6 BMI: 38.6 Code : 95532-2 Heart Rate 1 : 83 bpm Height: 5'8" SpO2: 98% Weight: 254 lbs 08/28/2015 Blood Pressure 1: 138/84 Code : 8480-6 BMI: 36.8 Code : 34652-5 Heart Rate 1 : 128 bpm Height: 5'8" SpO2: 99% Weight: 242 lbs 08/11/2015 Blood Pressure 1: 140/96 Code : 8480-6 BMI: 37.7 Code : 09331-2 Heart Rate 1 : 93 bpm Height: 5'8" SpO2: 98% Weight: 248 lbs 07/31/2015 Blood Pressure 1: 160/80 Code : 8480-6 BMI: 37.7 Code : 97145-6 Heart Rate 1 : 122 bpm Height: 5'8" SpO2: 98% Temperature: 37.2 (C) / 98.9 (F) Weight: 248 lbs 06/12/2015 Blood Pressure 1: 134/82 Code : 8480-6 BMI: 36.2 Code : 16399-9 Heart Rate 1 : 102 bpm Height: 5'8" SpO2: 99% Weight: 238 lbs 01/20/2015 Blood Pressure 1: 132/82 Code : 8480-6 BMI: 35.6 Code : 30693-9 Heart Rate 1 : 84 bpm Height: 5'8" SpO2: 96% Weight: 234 lbs 10/07/2014 Blood Pressure 1: 132/82 Code : 8480-6 BMI: 34.5 Code : 13352-5 Heart Rate 1 : 95 bpm Height: [...] data Encounters Encounter Performer Location Codes Date 67815 EST. PATIENT, LEVEL III Diagnosis: Pain in left knee[ICD10: M25.562] Shobha Jarvis MD, [facility] CPT -4: 59141 12/30/2017 30120 EST. PATIENT, LEVEL IV Diagnosis: Pneumonia due to other specified infectious organisms[ICD10: J16.8] Shobha Jarvis MD, [facility] CPT-4: 75278 11/27/2017 ([id number]) Miscellaneous no charge Diagnosis: Cellulitis of right lower limb[ICD10: L03.115] Shobha Jarvis MD, [facility] CPT-4: 51079 11/19/2017 99700 EST. PATIENT, LEVEL III Diagnosis: Cellulitis of right lower limb[ICD10: L03.115] Shobha Jarvis MD, [facility] CPT-4: 58038 11/17/2017 43524 EST. PATIENT, LEVEL IV Diagnosis: Other mucopurulent conjunctivitis, left eye[ICD10: H10.022] Diagnosis: Other allergic rhinitis[ICD10: J30.89] Shobha Jarvis MD, [facility] CPT-4: 86187 11/04/2017 96719 EST. PATIENT, LEVEL III Diagnosis: 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[ICD10 : M32.15] Diagnosis: Fever, unspecified[ICD10: R50.9] Shobha Jarvis MD, [facility] CPT- 4: 94148 09/22/2017 78070 EST. PATIENT, LEVEL IV Diagnosis: 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[ICD10 : M32.15] Shobha Jarvis MD, [facility] CPT-4: 91866 2017 65240 EST. PATIENT, LEVEL IV Diagnosis: Acute suppurative otitis media without spontaneous rupture of ear drum, right ear[ICD10: H66.001] Diagnosis: 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[ICD10 : M32.15] Shobha Jarvis MD, [facility] CPT-4: 51133 2016 13609 EST. PATIENT, LEVEL IV Diagnosis: 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[ICD10 : M32.15] Diagnosis: Hematuria, unspecified[ICD10: R31.9] Diagnosis: Other malaise[ICD10: R53.81] Shobha Jarvis MD, [facility] CPT-4 : 14021 03/27/2017 98987 EST. PATIENT, LEVEL IV Diagnosis: Systemic lupus erythematosus, organ or system involvement unspecified [ICD10: M32.10] Diagnosis: Other fatigue[ICD10: R53.83] Diagnosis: Other malaise[ICD10: R53.81] Diagnosis: Fever, unspecified[ICD10: R50.9] Shobha Jarvis MD, [facility] CPT- 4: 71234 03/04/2017 81595 EST. PATIENT, LEVEL IV Diagnosis: 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[ICD10 : M32.15] Diagnosis: Fever, unspecified[ICD10: R50.9] Shobha Jarvis MD, [facility] CPT- 4: 13373 02/25/2017 44119 EST. PATIENT, LEVEL IV Diagnosis: Other acute sinusitis[ICD10: J01.80] Diagnosis: Acute laryngopharyngitis[ICD10: J06.0] Diagnosis: Other allergic rhinitis[ICD10: J30.89] Shobha Jarvis MD, [facility] CPT-4: 75947 02/20/2017 88575 EST. PATIENT, LEVEL III Diagnosis: 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[ICD10 : M32.15] Shobha Jarvis MD, [facility] CPT-4: 79267 2016 27170 EST. PATIENT, LEVEL III Diagnosis: Systemic lupus erythematosus, organ or system involvement unspecified [ICD10: M32.10] Diagnosis: Paresthesia of skin[ICD10: R20.2] Diagnosis: Dysuria[ICD10: R30.0] Shobha Jarvis MD, [facility] CPT-4: 14482 01/28/2017 88780 EST. PATIENT, LEVEL III Diagnosis: 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[ICD10 : M32.15] Shobha Jarvis MD, [facility] CPT-4: 84326 2016 ([id number]) 80850 EST. PATIENT, LEVEL III Diagnosis: Cough[ICD10: R05] Diagnosis: Acute upper respiratory infection, unspecified[ICD10: J06.9] Ela Jarvis MD, [facility] CPT-4: 74504 10/21/2016 18027 EST. PATIENT, LEVEL IV Diagnosis: Generalized anxiety disorder[ICD10: F41.1] Diagnosis: Systemic lupus erythematosus, organ or system involvement unspecified [ICD10: M32.10] Shobha Jarvis MD, [facility] CPT-4: 87681 09/30/2016 04204 EST. PATIENT, LEVEL IV Diagnosis: Systemic lupus erythematosus, organ or system involvement unspecified [ICD10: M32.10] Shobha Jarvis MD, [facility] CPT-4: 34450 09/17/2016 22319 EST. PATIENT, LEVEL IV Diagnosis: Acute laryngopharyngitis[ICD10: J06.0] Shobha Jarvis MD, [facility] CPT-4: 53401 07/15/2016 40568 EST. PATIENT, LEVEL III Diagnosis: Other acute sinusitis[ICD10: J01.80] Diagnosis: Other allergic rhinitis[ICD10: J30.89] Nancy Jarvis MD, [facility] CPT-4: 45629 07/04/2016 23779 EST. PATIENT, LEVEL IV Diagnosis: Migraine without aura, intractable, without status migrainosus[ICD10 : G43.019] Diagnosis: Paresthesia of skin[ICD10: R20.2] Diagnosis: Dysuria[ICD10: R30.0] Shobha Jarvis MD, [facility] CPT-4: 71430 07/01/2016 25998 EST. PATIENT, LEVEL III Diagnosis: Acute laryngopharyngitis[ICD10: J06.0] Diagnosis: Other acute sinusitis[ICD10: J01.80] Diagnosis: Other allergic rhinitis[ICD10: J30.89] Shobha Jarvis MD [facility] CPT-4: 74588 06/05/2016 30934 EST. PATIENT, LEVEL III Diagnosis: Other allergic rhinitis[ICD10: J30.89] Shobha Jarvis MD, [facility] CPT-4: 50790 04/02/2016 85874 EST. PATIENT, LEVEL IV Diagnosis: Acute suppurative otitis media without spontaneous rupture of ear drum, bilateral[ICD10: H66.003] Diagnosis: Other acute sinusitis[ICD10: J01.80] Shobha Jarvis MD [facility] CPT-4: 20917 03/22/2016 06606 EST. PATIENT, LEVEL III Diagnosis: Systemic lupus erythematosus, organ or system involvement unspecified [ICD10: M32.10] Diagnosis: Hypokalemia[ICD10: E87.6] Diagnosis: Dysphagia, oropharyngeal phase[ICD10: R13.12] Shobha Jarvis MD, [facility] CPT-4: 39622 03/05/2016 ([id number]) Miscellaneous no charge Diagnosis: Rash and other nonspecific skin eruption[ICD10: R21] Ela Jarvis MD [facility] CPT-4: 76224 02/01/2016 ([id number]) 10463 EST. PATIENT, LEVEL III Diagnosis: Acute recurrent maxillary sinusitis[ICD10: J01.01] Ela Jarvis MD, [facility] CPT-4: 74610 01/29/2016 ([id number]) 35432 EST. PATIENT, LEVEL III Diagnosis: Urinary tract infection, site not specified[ICD10: N39.0] Diagnosis: Low back pain[ICD10: M54.5] Ela Jarvis MD, [facility] CPT-4: 35231 12/11/2015 80649 EST. PATIENT, LEVEL IV Diagnosis: Other acute sinusitis[ICD10: J01.80] Shobha Jarvis MD, [facility] CPT-4: 55281 11/09/2015 ([id number]) 23274 EST. PATIENT, LEVEL III Diagnosis: Hypokalemia[ICD10: E87.6] Diagnosis: Localized edema[ICD10: R60.0] Ela Jarvis MD, [facility] CPT-4: 95706 09/12/2015 05553 EST. PATIENT, LEVEL III Diagnosis: Impacted cerumen, bilateral[ICD10: H61.23] Diagnosis: Systemic lupus erythematosus, organ or system involvement unspecified [ICD10: M32.10] Shobha Jarvis MD, [facility] CPT-4: 47337 08/28/2015 27041 EST. PATIENT, LEVEL IV Diagnosis: Impacted cerumen, right ear[ICD10: H61.21] Diagnosis: Other hemorrhoids[ICD10: K64.8] Diagnosis: Other constipation[ICD10: K59.09] Shobha Jarvis MD, [facility] CPT -4: 12996 08/11/2015 00979 EST. PATIENT, LEVEL IV Diagnosis: Acute suppurative otitis media without spontaneous rupture of ear drum, bilateral[ICD10: H66.003] Diagnosis: Diffuse otitis externa, bilateral[ICD10: H60.313] Shobha Jarvis MD, [facility] CPT-4: 57004 07/31/2015 97329 EST. PATIENT, LEVEL IV Diagnosis: Systemic lupus erythematosus, organ or system involvement unspecified [ICD10: M32.10] Diagnosis: Pain in unspecified joint[ICD10: M25.50] Diagnosis: Acute laryngopharyngitis[ICD10: J06.0] Shobha Jarvis MD, [facility] CPT-4: 84434 06/12/2015 ([id number]) 42557 EST. PATIENT, LEVEL III Diagnosis: Systemic lupus erythematosus[ICD9: 710.0] Diagnosis: JOINT PAIN-MULT JOINTS[ICD9: 719.49] Nancy Jarvis MD, [facility] CPT-4: 41559 01/20/2015 ([id number]) OFFICE VISIT, NEW - LEVEL 3 Diagnosis: Systemic lupus erythematosus[ICD9: 710.0] Diagnosis: Gastroesophageal reflux[ICD9: 530.81] Ela Jarvis MD, [facility] CPT-4: 24784 10/07/2014 Plan of Care Planned Activity Notes Codes Status Date Visit Plan: Left knee pain - the [...] 12/30/2017 Care Plan: Referral Order SNOMED-CT : [id number] Pending 12/30/2017 Visit Plan: Pneumonia - Pt has been diagnosed with pneumonia by physical exam. A chest xray has been ordered as have antibiotics. The pt is aware of the diagnosis and the need for acute treatment of this illness. 11/27/2017 App[facility]ment[facility] [phone] [facility] (15 min) Moderate 11/27/2017 Patient Education: Patient Medication Summary Completed 11/27/2017 Care Plan: CHEST X-RAY 2VW FRONTAL&LATL LOINC : 17831-1 Pending 11/27/2017 Appointment: Nurse Visit 11/19/2017 Patient Education: Patient Medication Summary Completed 11/19/2017 Visit Plan: Cellulitis - continue with oral antibiotics as previously directed, return to clinic as previously directed, call for acute change in symptoms, worsening redness, warmth, discharge. 11/17/2017 Appointment: [facility] [phone] [facility] (15 min) Moderate 11/17/2017 Patient Education: [...] allergy spray. 11/04/2017 Appointment: Shobha Bland WPtel: [address] [place] [address] (15 min) Moderate 11/04/2017 Patient Education: Patient Medication Summary Completed 11/04/2017 Appointment: Shobha Bland WPtel: [address] [place] [address] (15 min) Moderate 10/07/2017 Visit Plan: Fevers, lupus - will give 1g Rocephin IM and check labs - defer to specialists. Pt is to notify clinic if symptoms do not improve, if they worsen, or with any changes, questions, or concerns. 09/22/2017 Appointment: Shobha Bland WPtel: [address] [place] [address] (15 min) Moderate 09/22/2017 Patient Education: Patient Medication Summary Completed 09/22/2017 Visit Plan: Lupus, malaise, tremors, flushing - discussed with Dr. Jarvis, and her specialists at -will start Prednisone taper. Pt is to notify clinic if symptoms do not improve, if they worsen, or with any changes, questions, or concerns. 09/15/2017 Appointment: Shobha Bland WPtel: [address] [place] [address] (15 min) Moderate 09/15/2017 Patient Education: Patient [...] as needed. 04/23/2017 App[facility]ment[facility] [phone] [facility] (30 min) Complex 04/23/2017 Patient Education: Patient Medication Summary Completed 04/23/2017 Visit Plan: Malaise, Lupus - will check UA - Pt is to follow up with her specialists at , she is to update clinic of any changes in her current treatment plan. 03/27/2017 Appointment: [facility] [phone] [facility] (30 min) Complex 03/27/2017 Patient Education: [...] plan. 03/04/2017 Appointment: [facility] [phone] [facility] (30 min) Complex 03/04/2017 Patient Education: [...] or concerns. 02/25/2017 Appointment: Shobha Bland WPtel: [facility] [place] Nurse Visit 02/25/2017 Patient Education: Patient Medication [...] or concerns. 01/28/2017 Appointment: Shobha Bland WPtel: [facility] [place] (15 min) Moderate 01/28/2017 Patient Education: Patient [...] or concerns. 12/13/2016 Appointment: Shobha Bland WPtel: [facility] [place] (15 min) Moderate 12/13/2016 Patient Education: Patient Medication Summary Completed 12/13/2016 Visit Plan: URI - Pt advised to increase fluids, vitamin C. Discussed natural and expected course of this diagnosis and need to alert me if symptoms do not follow expected course, or if any worse. RX sent to patient' s pharmacy. 10/21/2016 Appointment: [facility] Dod[facility] [phone] [phone] [place] (15 min) Moderate 10/21/2016 Patient Education: Patient Medication Summary Completed 10/21/2016 Appointment: Ela Dodson WPtel: [phone] [place] (15 min) Moderate 10/14/2016 Visit [...] before starting xanax. Lupus - defer to composite engineer 09/30/2016 Appointment: Shobha Bland WPtel: [phone] [facility] (30 min) Complex 09/30/2016 Patient Education: Patient Medication Summary Completed 09/30/2016 Patient Education: Obesity Completed 09/30/2016 Visit Plan: Lupus - Dr. Jravis in to evaluate pt - will increase Prednisone and have pt follow up with her specialists about her Rituxan - will check labs - pt is to notify clinic if symptoms do not improve, if they worsen, or with any questions or concerns. 09/17/2016 Appointment: Shobha Bland WPtel: [phone] [facility] (30 min) Complex 09/17/2016 Patient Education: Patient [...] concerns. 07/15/2016 Appointment: Shobha Bland WPtel: [phone] [facility] (30 min) Complex 07/15/2016 Patient Education: Patient [...] allergy spray. 07/04/2016 Appointment: Shobha Bland WPtel: [facility] (15 min) Moderate 07/04/2016 Patient Education: Patient [...] or concerns. 07/01/2016 Appointment: [facility] [phone] [facility] [place] (10 min) Simple 07/01/2016 Appointment: Shobha Bland WPtel: [phone] [facility] [place] (10 min) Simple 07/01/2016 Patient Education: Patient [...] allergy spray. 04/02/2016 Appointment: Ela Dodson WPtel: [phone] (15 min) Moderate 04/02/2016 Patient Education: Patient [...] Medication Summary Completed 03/22/2016 Referral: Rojelio Polk [facility]:[phone] [place], [place] [id number] Referral Initiated 03/18/2016 Care Plan: Referral Order SNOMED-CT : [id number] Pending 03/14/2016 Visit Plan: Lupus and difficulty [...] dysphagia persists. 03/05/2016 Appointment: Ela Dodson WPtel: [address] [place] [address] (30 min) Complex 03/05/2016 Patient Education: Patient Medication Summary Completed 03/05/2016 Visit Plan: Stitches removed x 2 right upper arm 02/01/2016 Appointment: Ela Dodson WPtel: [address] [place] [address] (30 min) Complex 02/01/2016 Patient Education: Patient Medication Summary Completed 02/01/2016 Visit Plan: Sinusitis - Pt has acute infection - pain in face, maxillary region, Pt informed to use decongestant, RX given to patient, sinus rinses also recommended. Call if symptoms do not show improvement. 01/29/2016 Appointment: Ela Dodson WPtel: [address] [place] [address] (30 min) Complex 01/29/2016 Patient Education: Patient [...] plan. 12/11/2015 Appointment: Ela Dodson WPtel: [phone] [phone] (15 min) Moderate 12/11/2015 Patient Education: Patient Medication Summary Completed 12/11/2015 Patient Education: Obesity Completed 12/11/2015 Visit Plan: Sinusitis - Pt has acute infection - pain in face, maxillary region, Pt informed to use decongestant, RX given to patient, sinus rinses also recommended. Call if symptoms do not show improvement. 11/09/2015 Appointment: Ela Dodson WPtel: [phone] (15 min) Moderate 11/09/2015 Patient Education: Patient [...] removal process. 08/28/2015 Appointment: Shobha Bland WPtel: [phone] (15 min) Moderate 08/28/2015 Patient Education: Patient Medication Summary Completed 08/28/2015 Patient Education: Obesity Completed 08/28/2015 Appointment: Ela Dodson WPtel: [phone] (30 min) Complex 08/25/2015 Visit Plan: Cerumen [...] [place] Referral App[facility]ment [facility] Ref[id number] [place] Referral Initiated Instructions Comment . Conjunctivitis [...] before starting xanax. Lupus - defer to composite engineer . Otitis Media - discussed the diagnosis [...]
--- OUTSIDE RECORDS SUMMARY | 2018-01-20 11:32 | XMS REPORT | CCD ---
Author Author [facility] Address [address] [place] [address] Phone Care Team Providers Care Intelligence Agent Name Role Phone PP Unavailable CCM Unavailable Summary Purpose Interface Exchange Insurance Providers Payer name Policy type / Coverage type Covered green party ID Effective Begin Date Effective End Date [place] [facility] [employer]/[facility] [id number] 2015 Unknown Family history Brother Diagnosis Age At Onset Asthma Unknown defect Unknown Mother Diagnosis Age At Onset Diabetes mellitus Type 2 Unknown Hypertension Unknown Depression Unknown Hyperlipidemia Unknown Social History Social History Element Codes Description Effective Dates Marital status Unknown Single 09/30/2016 Number of children Unknown 0 10/07/[address]: 832092509 Never smoker 10/07/[address]: 507987022 Never drinks alcohol 10/07/2014 Allergies, Adverse Reactions, Alerts Allergies, Adverse Reactions, Alerts data not found Past Medical History Illness Codes Condition Status Onset Date Resolved Date Acute suppurative otitis media without spontaneous rupture of ear drum, bilateral ICD-9: 382.00 ICD-10: H66.003 Active 03/21/2016 Unknown 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 ICD-9: 710.0 ICD-10: M32.15 Active 02/25/2017 Unknown Hematuria, unspecified ICD-9: 599.70 ICD-10: R31.9 Active 03/27/2017 Unknown Other malaise ICD-9: 780.79 ICD-10: R53.81 Active 03/04/2017 Unknown Fever, unspecified ICD -9: 780.60 ICD-10: R50.9 Active 02/25/2017 Unknown Other fatigue ICD-9: 780.79 ICD-10: R53.83 Active 03/04/2017 Unknown Systemic lupus erythematosus, organ or system involvement unspecified ICD-9: 710.0 ICD-10: M32.10 Active 03/04/2016 Unknown Acute laryngopharyngitis ICD-9: 465.0 ICD-10: J06.0 Active 06/11/2015 Unknown Other acute sinusitis ICD-9: 461.8 ICD-10: J01.80 Active 03/21/2016 Unknown Other allergic rhinitis ICD-9: 477.8 ICD-10: J30.89 Active 04/01/2016 Unknown Dysuria ICD-9: 788.1 ICD-10: R30.0 Active [...] Problems Condition Codes Effective Dates Condition Status Acute suppurative otitis media without spontaneous rupture of ear drum, bilateral ICD-9: 382.00 ICD-10: H66.003 03/21/2016 Active 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 ICD-9: 710.0 ICD-10: M32.15 02/25/2017 Active Hematuria, unspecified ICD-9: 599.70 ICD-10: R31.9 03/27/2017 Active Other malaise ICD-9: 780.79 ICD-10: R53.81 03/04/2017 Active Fever, unspecified ICD -9: 780.60 ICD-10: R50.9 02/25/2017 Active Other fatigue ICD-9: 780.79 ICD-10: R53.83 03/04/2017 Active Systemic lupus erythematosus, organ or system involvement unspecified ICD-9: 710.0 ICD-10: M32.10 03/04/2016 Active Acute laryngopharyngitis ICD-9: 465.0 ICD-10: J06.0 06/11/2015 Active Other acute sinusitis ICD-9: 461.8 ICD-10: J01.80 03/21/2016 Active Other allergic rhinitis ICD-9: 477.8 ICD-10: J30.89 04/01/2016 Active Dysuria ICD-9: 788.1 ICD-10: R30.0 07/01/2016 [...] Start Date Stop Date Status Fill Instructions Lunesta 1 mg tablet RxNorm: 645182 1 Tablet(s) PO QHS 201706/14/2017 Inactive Lunesta 1 mg tablet RxNorm: 087528 1 Tablet(s) PO QHS 201705/15/2017 Inactive Zithromax Z-John 250 mg tablet RxNorm: 244046 1 Tablet(s) PO UD 04/23/2017 04/27/2017 Inactive Lyrica 100 mg capsule RxNorm: 301732 1 Capsule(s) PO TID 201606/24/2017 Inactive prednisone 20 mg tablet RxNorm: 902655 Tablet(s) PO 60mg x 3 days, then 40mg x 3 days, then 25mg x 3 days, then back to 13mg daily 02/25/2017 No Stop Date Active Levaquin 250 mg tablet RxNorm: 597034 1 Tablet(s) PO daily 03/01/2017 Inactive amoxicillin 500 mg capsule RxNorm: 925428 1 Capsule(s) PO TID 02/20/2017 02/20/2017 Inactive Kenalog 40 mg/mL suspension for injection RxNorm: 7558321 Milliliter(s) Inj 02/20/2017 02/20/2017 Inactive Augmentin 500 mg-125 mg tablet RxNorm: 283286 1 Tablet(s) PO TID 02/20/2017 02/20/2017 Inactive Xanax 0.25 mg tablet RxNorm: 115311 1 Tablet(s) PO TID as needed anxiety 02/05/2017 No Stop Date Active prednisone 5 mg tablet RxNorm: 302693 1 Tablet(s) PO daily to take with the 20mg pill to equal 25mg daily x 2 weeks. 02/04/2017 No Stop Date Active prednisone 20 mg tablet RxNorm: 835459 1 Tablet(s) PO daily to take with the 5mg to equal 25mg daily x 2 weeks. 02/04/2017 No Stop Date Active Kenalog 40 mg/mL suspension for injection RxNorm: 3339549 Milliliter(s) Inj 01/28/2017 01/28/2017 Inactive ceftriaxone 500 mg solution for injection RxNorm: 1140275 Inj 01/28/2017 01/28/2017 Inactive prednisone 20 mg tablet RxNorm: 010310 Tablet(s) PO 60mg x 3 days, then 40mg x 3 days 01/28/2017 02/24/2017 Inactive ceftriaxone 500 mg solution for injection RxNorm: 8504952 Inj 12/13/2016 12/13/2016 Inactive Kenalog 40 mg/mL suspension for injection RxNorm: 3326638 Milliliter(s) Inj 12/13/2016 12/13/2016 Inactive prednisone 20 mg tablet RxNorm: 920444 Tablet(s) PO 60mg x 3 days, then 40mg x 3 days 12/13/2016 01/27/2017 Inactive Zithromax Z-John 250 mg tablet RxNorm: 260106 1 Tablet(s) PO UD 10/21/2016 10/25/2016 Inactive fluoxetine 10 mg tablet RxNorm: 452738 1 Tablet(s) PO BID 09/3012/28/2016 Inactive Xanax 0.25 mg tablet RxNorm: 068956 1 Tablet(s) PO TID as needed anxiety 09/30/2016 02/04/2017 Inactive prednisone 20 mg tablet RxNorm: 438327 Tablet(s) PO 60mg x 1 week, then 40mg x 1 week, then back to 20mg 09/17/2016 No Stop Date Active Kenalog 40 mg/mL suspension for injection RxNorm: 6969845 Milliliter(s) Inj 09/17/2016 09/17/2016 Inactive amoxicillin 500 mg capsule RxNorm: 608662 1 Capsule(s) PO TID 07/15/2016 07/24/2016 Inactive Zithromax Z-John 250 mg tablet RxNorm: 202778 1 Tablet(s) PO UD 07/04/2016 10/20/2016 Inactive promethazine 25 mg/mL injection solution RxNorm: 678023 Milliliter(s) Inj 07/01/2016 07/01/2016 Inactive promethazine 25 mg tablet RxNorm: 525977 1 Tablet(s) PO TID as needed 07/01/2016 07/10/2016 Inactive Flonase Allergy Relief 50 mcg/actuation nasal spray, suspension RxNorm: 9053252 1 [place] NASAL BID 06/05/2016 No Stop Date Active Zithromax Z-John 250 mg tablet RxNorm: 290868 Tablet(s) PO UD 07/03/2016 Inactive amoxicillin 500 mg capsule RxNorm: 302286 1 Capsule(s) PO TID 03/22/2016 04/04/2016 Inactive Kenalog 40 mg/mL suspension for injection RxNorm: 5548471 2 Milliliter(s) Inj 03/22/2016 03/22/2016 Inactive Diflucan 150 mg tablet RxNorm: 785181 1 Tablet(s) PO daily 03/09/2016 Inactive Diflucan 150 mg tablet RxNorm: 281726 1 Tablet(s) PO daily 03/04/2016 Inactive Keflex 500 mg capsule RxNorm: 032583 1 Capsule(s) PO TID 201502/04/2016 Inactive Keflex 500 mg capsule RxNorm: 187655 1 Capsule(s) PO TID 201512/17/2015 Inactive Augmentin 500 mg-125 mg tablet RxNorm: 682450 1 Tablet(s) PO TID 11/09/2015 11/18/2015 Inactive Anusol-HC 25 mg rectal suppository RxNorm: 7229837 1 Suppository RTL daily as needed pain 08/11/2015 No Stop Date Active Miralax 17 gram/dose oral powder RxNorm: 004541 1 taper PO 05/201512/08/2015 Inactive Ciprodex 0.3 %-0.1 % ear drops,suspension RxNorm: 616474 2 Drop(s) OTIC BID 07/31/2015 08/06/2015 Inactive amoxicillin 500 mg capsule RxNorm: 792422 1 Capsule(s) PO TID 07/31/2015 08/09/2015 Inactive Augmentin 500 mg-125 mg tablet RxNorm: 326598 1 Tablet(s) PO TID 07/07/2015 07/16/2015 Inactive Augmentin 500 mg-125 mg tablet RxNorm: 905606 1 Tablet(s) PO TID 07/07/2015 07/06/2015 Inactive Zithromax Z-John 250 mg tablet RxNorm: 213832 Tablet(s) PO UD 08/27/2015 Inactive Pen[place]aid 20 mg/gram/actuation (2 %) topical soln in metered -dose pump RxNorm: 2157894 2 Application TOP BID 01/20/201502/18 Inactive acetazolamide 250 mg tablet RxNorm: 381492 1 Tablet(s) PO BID 01/20/2015 02/18/2015 Inactive [place]aid 20 mg/gram/actuation (2 %) topical soln in metered -dose pump RxNorm: 5386654 2 Application TOP BID 01/20/201501/19 Inactive cefuroxime axetil 500 mg tablet RxNorm: 938024 1 Tablet(s) PO BID 12/23/2014 12/22/2014 Inactive cefuroxime axetil 500 mg tablet RxNorm: 338661 1 Tablet(s) PO BID 12/23/2014 01/01/2015 Inactive trazodone 50 mg tablet RxNorm: 898837 1-2 Tablet(s) PO QHS 11/05/2014 Inactive mycophenolate mofetil 500 mg tablet RxNorm: 055281 2 Tablet(s) PO BID No Start Date Active Vitamin D2 50,000 unit capsule RxNorm: 808209 1 Capsule(s) PO QW No Start Date Active sucralfate 1 gram tablet RxNorm: 820136 1 Gram(s) PO QID No Start Date Active ferrous fumarate 325 mg (106 mg iron) tablet RxNorm: 186649 1 Tablet(s) PO daily No Start Date Active aspirin, buffered 81 mg tablet,delayed release RxNorm: 314476 1 Tablet(s) PO daily No Start Date Active potassium chloride ER 20 mEq tablet,extended release RxNorm: 113928 1 Tablet(s) PO BID No Start Date Active Calcium 500 + D (D3) oral RxNorm: 663847 oral No Start Date Active tramadol 50 mg tablet RxNorm: 656327 1 Tablet(s) PO BID as needed No Start Date Active prednisone 10 mg tablet RxNorm: 658274 1 Tablet(s) PO daily No Start Date Active Nexium 40 mg capsule,delayed release RxNorm: 019747 1 Capsule(s) PO daily Started by specialist No Start Date Active hydroxychloroquine 200 mg tablet RxNorm: 436657 1 Tablet(s) PO BID No Start Date Active tacrolimus 1 mg capsule RxNorm: 981893 1 Capsule(s) PO daily No Start Date 06/23/2016 Inactive amitriptyline 25 mg tablet RxNorm: 728168 1 Tablet(s) PO daily No Start Date 06/11/2015 Inactive Lyrica 75 mg capsule RxNorm: 330726 1 Capsule(s) PO daily No Start Date 02/03/2017 Inactive celecoxib 100 mg capsule RxNorm: 369666 1 Capsule(s) PO daily No Start Date 01/19/2015 Inactive fluoxetine 10 mg tablet RxNorm: 943866 1 Tablet(s) PO daily No Start Date 09/29/2016 Inactive Lyrica 100 mg capsule RxNorm: 821695 1 Capsule(s) PO TID No Start Date 03/26/2017 Inactive Medication Administered Medication Codes Instructions Start Date Status Kenalog 40 mg/mL suspension for injection RxNorm: 0559086 Milliliter 02/20/2017 No longer Active ceftriaxone 500 mg solution for injection RxNorm: 0578797 01/28/2017 No longer Active Kenalog 40 mg/mL suspension for injection RxNorm: 9375439 Milliliter 01/28/2017 No longer Active ceftriaxone 500 mg solution for injection RxNorm: 8571105 12/13/2016 No longer Active Kenalog 40 mg/mL suspension for injection RxNorm: 7444348 Milliliter 12/13/2016 No longer Active Kenalog 40 mg/mL suspension for injection RxNorm: 1141708 Milliliter 09/17/2016 No longer Active promethazine 25 mg/mL injection solution RxNorm: 621408 Milliliter 07/01/2016 No longer Active Kenalog 40 mg/mL suspension for injection RxNorm: 6323800 2Milliliter 03/22/2016 No longer Active Immunizations Vaccine Codes Date Status Influenza CVX: 141 03/12/2013 completed Assessments Condition Codes Effective Dates Acute suppurative otitis media without spontaneous rupture of ear drum, right ear ICD-10: H66.001 ICD-9: 382.00 04/23/2017 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 ICD-10: M32.15 ICD-9: 710.0 04/23/2017 Other malaise ICD-10: R53.81 ICD-9: 780.79 03/27/2017 Hematuria, unspecified ICD-10: R31.9 ICD-9: 599.70 03/27/2017 Fever, unspecified ICD-10: R50.9 ICD-9: 780.60 03/04/2017 Other fatigue ICD-10: R53.83 ICD-9: 780.79 03/04/2017 Systemic lupus erythematosus, organ or system involvement unspecified ICD-10: M32.10 ICD-9: 710.0 03/04/2017 Acute laryngopharyngitis ICD-10: J06.0 ICD-9: 465.0 02/20/2017 Other acute sinusitis ICD-10: J01.80 ICD-9: 461.8 02/20/2017 Other allergic rhinitis ICD-10: J30.89 ICD-9: 477.8 02/20/2017 Dysuria ICD-10: R30.0 ICD-9: 788.1 01/28/2017 [...] Visit Reason For Visit Effective Dates Notes sinus congestion 04/23/2017 abdominal pain 03/27/2017 malaise [...] Observation Code Item Item Code Result Date Cbc With Differential Ord2 WBC 6.58 K/ul [...] 25.1 pg 04/23/2017 Cbc With Differential Ord2 [place]% 9.7 % 04/23/2017 Cbc With Differential Ord2 [...] 1.90 K/ul 04/23/2017 Cbc With Differential Ord2 [place] ABS# 0.6 K/ul 04/23/2017 Cbc With Differential Ord2 Eos ABS# 0.2 K/ul 04/23/2017 Cbc With Differential Ord2 Baso ABS# 0.0 K/ul 04/23/2017 Comp Metabolic Xdu017 NA 142 mEq/L 04/23/2017 Comp Metabolic Dle931 K 3.6 mEq/L 04/23/2017 Comp Metabolic Jde256 CL 108 mEq/L 04/23/2017 Comp Metabolic Frp091 CO2 23.0 mEq/L 04/23/2017 Comp Metabolic Tuy667 ANION GAP 15 04/23/2017 Comp Metabolic Nwz666 GLUCOSE 93 mg/dL 04/23/2017 Comp Metabolic Tgs219 Creat 0.9 mg/dL 04/23/2017 Comp Metabolic Bbw067 eGFR 82 ml/min/1.73m2 04/23/2017 Comp Metabolic Hli100 BUN 10 mg/dL 04/23/2017 Comp Metabolic Bvy103 B/C Ratio 10.9 Ratio 04/23/2017 Comp Metabolic Wfb387 CALCIUM 8.5 mg/dL 04/23/2017 Comp Metabolic Bit183 ALK PHOS 51 U/L 04/23/2017 Comp Metabolic Hmw877 AST(SGOT) 17 U/L 04/23/2017 Comp Metabolic Iyf669 ALT(SGPT) 15 U/L 04/23/2017 Comp Metabolic Owx553 BILI T 0.2 mg/dL 04/23/2017 Comp Metabolic Lbs259 ALBUMIN 3.3 g/dL 04/23/2017 Comp Metabolic Ruu030 TPRO 5.7 g/dL 04/23/2017 Comp Metabolic Wmg559 GLOB 2.4 g/dL 04/23/2017 Comp Metabolic Kty345 A/G Ratio 1.4 Ratio 04/23/2017 Comp Metabolic Kbz209 Osmo 282 mOsmo 04/23/2017 Urine Culture Ucult Preliminary NO Growth Day 1 03/31/2017 Urine Culture Ucult Complete NO Growth Day 2 03/31/2017 Random Urine Protein/Creatinine Ratio Fdy9160 U Prot 427.0 mg/dl 03/28/2017 Random Urine Protein/Creatinine Ratio Vcj7063 U CREAT 99.0 mg/dL 03/28/2017 Random Urine Protein/Creatinine Ratio Cml4759 R MTP/Creat Ratio 4.31 03/28/2017 Random Urine Protein/Creatinine Ratio U Prot 181.0 [...] 25.2 pg 02/04/2017 Cbc With Differential Ord2 [place]% 4.7 % 02/04/2017 Cbc With Differential Ord2 [...] 1.92 K/ul 02/04/2017 Cbc With Differential Ord2 [place] ABS# 0.7 K/ul 02/04/2017 Cbc With Differential Ord2 Eos ABS# 0.0 K/ul 02/04/2017 Cbc With Differential Ord2 Baso ABS# 0.0 K/ul 02/04/2017 Urinalysis U-Color Yellow 02/04/2017 Urinalysis U-Clarity [...] 48 hours from collection if refrigerated) 02/04/2017 Comp Metabolic Rla577 NA 141 mEq/L 02/04/2017 Comp Metabolic Dji662 K 4.7 mEq/L 02/04/2017 Comp Metabolic Pvq883 CL 108 mEq/L 02/04/2017 Comp Metabolic Hjh239 CO2 25.0 mEq/L 02/04/2017 Comp Metabolic Iby929 ANION GAP 13 02/04/2017 Comp Metabolic Qje386 GLUCOSE 119 mg/dL 02/04/2017 Comp Metabolic Jpz979 Creat 1.1 mg/dL 02/04/2017 Comp Metabolic Sif711 eGFR 66 ml/min/1.73m2 02/04/2017 Comp Metabolic Jjh263 BUN 23 mg/dL 02/04/2017 Comp Metabolic Aog380 B/C Ratio 20.7 Ratio 02/04/2017 Comp Metabolic Xbt720 CALCIUM 9.3 mg/dL 02/04/2017 Comp Metabolic Fyc225 ALK PHOS 66 U/L 02/04/2017 Comp Metabolic Ixh069 AST(SGOT) 11 U/L 02/04/2017 Comp Metabolic Ysi024 ALT(SGPT) 12 U/L 02/04/2017 Comp Metabolic Lgz367 BILI T 0.2 mg/dL 02/04/2017 Comp Metabolic Qbu812 ALBUMIN 3.7 g/dL 02/04/2017 Comp Metabolic Txe743 TPRO 6.0 g/dL 02/04/2017 Comp Metabolic Lpr335 GLOB 2.3 g/dL 02/04/2017 Comp Metabolic Kwr617 A/G Ratio 1.6 Ratio 02/04/2017 Comp Metabolic Ooq059 Osmo 286 mOsmo 02/04/2017 Culture Urine [id number] URINE CULTURE SEE NOTES 02/03/2017 Urine Culture Ucult Complete >100,000 col/ml aerobic growth sent to ref lab 01/31/2017 Comp Metabolic Bkn079 NA 135 mEq/L 01/30/2017 Comp Metabolic Gsm207 K 4.8 mEq/L 01/30/2017 Comp Metabolic Tno265 CL 104 mEq/L 01/30/2017 Comp Metabolic Mrn157 CO2 22.0 mEq/L 01/30/2017 Comp Metabolic Alg262 ANION GAP 14 01/30/2017 Comp Metabolic Nlx960 GLUCOSE 107 mg/dL 01/30/2017 Comp Metabolic Ruy725 Creat 1.4 mg/dL 01/30/2017 Comp Metabolic Isy786 eGFR 51 ml/min/1.73m2 01/30/2017 Comp Metabolic Fbo790 BUN 24 mg/dL 01/30/2017 Comp Metabolic Std829 B/C Ratio 17.3 Ratio 01/30/2017 Comp Metabolic Hhc397 CALCIUM 8.7 mg/dL 01/30/2017 Comp Metabolic Xyy206 ALK PHOS 54 U/L 01/30/2017 Comp Metabolic Epb777 AST(SGOT) 14 U/L 01/30/2017 Comp Metabolic Eir144 ALT(SGPT) 15 U/L 01/30/2017 Comp Metabolic Lkg955 BILI T 0.2 mg/dL 01/30/2017 Comp Metabolic Fua379 ALBUMIN 3.6 g/dL 01/30/2017 Comp Metabolic Ttj500 TPRO 6.1 g/dL 01/30/2017 Comp Metabolic Nke611 GLOB 2.5 g/dL 01/30/2017 Comp Metabolic Slu352 A/G Ratio 1.5 Ratio 01/30/2017 Comp Metabolic Rip075 Osmo 275 mOsmo 01/30/2017 Urinalysis Ord28 U-Color Yellow 01/30/2017 Urinalysis [...] Urinalysis Ord28 U-Com Culture to follow 01/30/2017 Random Urine Protein/Creatinine Ratio Mbx2774 U Prot 115.0 mg/dl 01/30/2017 Random Urine Protein/Creatinine Ratio Goy1306 U CREAT 135.0 mg/dL 01/30/2017 Random Urine Protein/Creatinine Ratio Mhv4721 R MTP/Creat Ratio 0.85 01/30/2017 Comp Metabolic Wtl945 NA 138 mEq/L 01/29/2017 Comp Metabolic Svm837 K 4.6 mEq/L 01/29/2017 Comp Metabolic Weo840 CL 107 mEq/L 01/29/2017 Comp Metabolic Stb943 CO2 21.0 mEq/L 01/29/2017 Comp Metabolic Qvk268 ANION GAP 15 01/29/2017 Comp Metabolic Joc443 GLUCOSE 91 mg/dL 01/29/2017 Comp Metabolic Iza418 Creat 1.8 mg/dL 01/29/2017 Comp Metabolic Abt803 eGFR 38 ml/min/1.73m2 01/29/2017 Comp Metabolic Kmg152 BUN 26 mg/dL 01/29/2017 Comp Metabolic Lwr497 B/C Ratio 14.6 Ratio 01/29/2017 Comp Metabolic Grk236 CALCIUM 8.8 mg/dL 01/29/2017 Comp Metabolic Ndm269 ALK PHOS 58 U/L 01/29/2017 Comp Metabolic Pca072 AST(SGOT) 14 U/L 01/29/2017 Comp Metabolic Aya003 ALT(SGPT) 14 U/L 01/29/2017 Comp Metabolic Nfj245 BILI T 0.2 mg/dL 01/29/2017 Comp Metabolic Kxc666 ALBUMIN 3.4 g/dL 01/29/2017 Comp Metabolic Bgf573 TPRO 5.6 g/dL 01/29/2017 Comp Metabolic Prh293 GLOB 2.2 g/dL 01/29/2017 Comp Metabolic Nvp582 A/G Ratio 1.6 Ratio 01/29/2017 Comp Metabolic Zns144 Osmo 280 mOsmo 01/29/2017 Cbc With Differential [...] 25.1 pg 01/28/2017 Cbc With Differential Ord2 [place]% 9.6 % 01/28/2017 Cbc With Differential Ord2 [...] 2.46 K/ul 01/28/2017 Cbc With Differential Ord2 [place] ABS# 0.7 K/ul 01/28/2017 Cbc With Differential Ord2 Eos ABS# 0.1 K/ul 01/28/2017 Cbc With Differential Ord2 Baso ABS# 0.0 K/ul 01/28/2017 Urine Culture Ucult Preliminary NO Growth Day 1 09/19/2016 Urine Culture Ucult Complete NO Growth Day 2 09/19/2016 Comp Metabolic Gdu288 NA 140 mEq/L 09/17/2016 Comp Metabolic Gyu993 K 3.8 mEq/L 09/17/2016 Comp Metabolic Mtm820 CL 110 mEq/L 09/17/2016 Comp Metabolic Vjx360 CO2 20.0 mEq/L 09/17/2016 Comp Metabolic Omw414 ANION GAP 14 09/17/2016 Comp Metabolic Bnc183 GLUCOSE 88 mg/dL 09/17/2016 Comp Metabolic Szx589 Creat 1.3 mg/dL 09/17/2016 Comp Metabolic Swj510 eGFR 54 ml/min/1.73m2 09/17/2016 Comp Metabolic Gip430 BUN 14 mg/dL 09/17/2016 Comp Metabolic Xcs331 B/C Ratio 10.6 Ratio 09/17/2016 Comp Metabolic Huy522 CALCIUM 8.1 mg/dL 09/17/2016 Comp Metabolic Qej515 ALK PHOS 59 U/L 09/17/2016 Comp Metabolic Jgy341 AST(SGOT) 19 U/L 09/17/2016 Comp Metabolic Zbe188 ALT(SGPT) 18 U/L 09/17/2016 Comp Metabolic Crj680 BILI T 0.3 mg/dL 09/17/2016 Comp Metabolic Vkv164 ALBUMIN 3.0 g/dL 09/17/2016 Comp Metabolic Frj838 TPRO 5.1 g/dL 09/17/2016 Comp Metabolic Udg477 GLOB 2.1 g/dL 09/17/2016 Comp Metabolic Nyo336 A/G Ratio 1.4 Ratio 09/17/2016 Comp Metabolic Xeh269 Osmo 279 mOsmo 09/17/2016 Hgb & Hct Ord65 HGB 10.3 g/dl 09/17/2016 Hgb & Hct Ord65 HCT 32.2 % 09/17/2016 C RAP A SC [id number] Strep A Negative 07/15/2016 Urine Culture Ucult Preliminary NO Growth Day 1 07/04/2016 Urine Culture Ucult Complete NO Growth Day 2 07/04/2016 Comp Metabolic Icq711 NA 131 mEq/L 03/22/2016 Comp Metabolic Ghk017 K 4.1 mEq/L 03/22/2016 Comp Metabolic Jaa504 CL 106 mEq/L 03/22/2016 Comp Metabolic Njw183 CO2 18.0 mEq/L 03/22/2016 Comp Metabolic Exl247 ANION GAP 11 03/22/2016 Comp Metabolic Vsw545 GLUCOSE 84 mg/dL 03/22/2016 Comp Metabolic Xsl037 Creat 1.6 mg/dL 03/22/2016 Comp Metabolic Nbw313 eGFR 44 ml/min/1.73m2 03/22/2016 Comp Metabolic Pys813 BUN 14 mg/dL 03/22/2016 Comp Metabolic Igq073 B/C Ratio 8.9 Ratio 03/22/2016 Comp Metabolic Vdy592 CALCIUM 8.2 mg/dL 03/22/2016 Comp Metabolic Qza951 ALK PHOS 39 U/L 03/22/2016 Comp Metabolic Xkv719 AST(SGOT) 16 U/L 03/22/2016 Comp Metabolic Eys291 ALT(SGPT) 15 U/L 03/22/2016 Comp Metabolic Wrt645 BILI T 0.3 mg/dL 03/22/2016 Comp Metabolic Pql828 ALBUMIN 2.6 g/dL 03/22/2016 Comp Metabolic Idg641 TPRO 4.5 g/dL 03/22/2016 Comp Metabolic Aze376 GLOB 1.9 g/dL 03/22/2016 Comp Metabolic Ggz340 A/G Ratio 1.3 Ratio 03/22/2016 Comp Metabolic Hox425 Osmo 262 mOsmo 03/22/2016 Cbc With Differential Ord2 WBC 5.46 K/ul 03/22/2016 Cbc With Differential Ord2 RBC 3.68 M/ul 03/22/2016 Cbc With Differential Ord2 HGB 10.6 g/dl 03/22/2016 Cbc With Differential Ord2 HCT 32.5 % 03/22/2016 Cbc With Differential Ord2 Neut% 54.8 % 03/22/2016 Cbc With Differential Ord2 Lymph% 32.4 % 03/22/2016 Cbc With Differential Ord2 MCV 88.3 fl 03/22/2016 Cbc With Differential Ord2 [place]% 11.7 % 03/22/2016 Cbc With Differential Ord2 [...] 1.77 K/ul 03/22/2016 Cbc With Differential Ord2 [place] ABS# 0.6 K/ul 03/22/2016 Cbc With Differential Ord2 Eos ABS# 0.0 K/ul 03/22/2016 Cbc With Differential Ord2 Baso ABS# 0.0 K/ul 03/22/2016 Sed Rate Ord21 ESR 50 mm/hr 03/05/2016 Comp Metabolic Rgx482 NA 138 mEq/L 03/05/2016 Comp Metabolic Suz649 K 3.9 mEq/L 03/05/2016 Comp Metabolic Vaa019 CL 105 mEq/L 03/05/2016 Comp Metabolic Bgh177 CO2 27.0 mEq/L 03/05/2016 Comp Metabolic Xbq009 ANION GAP 10 03/05/2016 Comp Metabolic Ulq921 GLUCOSE 95 mg/dL 03/05/2016 Comp Metabolic Ily608 Creat 1.4 mg/dL 03/05/2016 Comp Metabolic Tcq538 eGFR 53 ml/min/1.73m2 03/05/2016 Comp Metabolic Lux844 BUN 20 mg/dL 03/05/2016 Comp Metabolic Kzf475 B/C Ratio 14.7 Ratio 03/05/2016 Comp Metabolic Okw894 CALCIUM 7.9 mg/dL 03/05/2016 Comp Metabolic Zfh333 ALK PHOS 43 U/L 03/05/2016 Comp Metabolic Ddb860 AST(SGOT) 14 U/L 03/05/2016 Comp Metabolic Jhy804 ALT(SGPT) 15 U/L 03/05/2016 Comp Metabolic Dhd200 BILI T 0.2 mg/dL 03/05/2016 Comp Metabolic Vfo048 ALBUMIN 2.2 g/dL 03/05/2016 Comp Metabolic Cgx667 TPRO 4.0 g/dL 03/05/2016 Comp Metabolic Qxe746 GLOB 1.9 g/dL 03/05/2016 Comp Metabolic Waz909 A/G Ratio 1.2 Ratio 03/05/2016 Comp Metabolic Wly133 Osmo 278 mOsmo 03/05/2016 Magnesium Ord90 Mag 2.1 mg/dL 03/05/2016 C-Reactive Protein Qnt Crqnt CRP 0.1 [...] 28.9 pg 03/05/2016 Cbc With Differential Ord2 [place]% 10.0 % 03/05/2016 Cbc With Differential Ord2 [...] 1.33 K/ul 03/05/2016 Cbc With Differential Ord2 [place] ABS# 0.4 K/ul 03/05/2016 Cbc With Differential Ord2 Eos ABS# 0.0 K/ul 03/05/2016 Cbc With Differential Ord2 Baso ABS# 0.0 K/ul 03/05/2016 Urine Culture Ucult Preliminary NO Growth Day 1 12/13/2015 Urine Culture Ucult Complete NO Growth Day 2 12/13/2015 Comp Metabolic Dna130 NA 137 mEq/L 06/13/2015 Comp Metabolic Qtq817 K 3.7 mEq/L 06/13/2015 Comp Metabolic Xmg290 CL 106 mEq/L 06/13/2015 Comp Metabolic Azj133 CO2 20.0 mEq/L 06/13/2015 Comp Metabolic Zpz851 ANION GAP 15 06/13/2015 Comp Metabolic Ltn840 GLUCOSE 89 mg/dL 06/13/2015 Comp Metabolic Ywk471 Creat 0.8 mg/dL 06/13/2015 Comp Metabolic Jii937 eGFR 94 ml/min/1.73m2 06/13/2015 Comp Metabolic Ghk658 BUN 11 mg/dL 06/13/2015 Comp Metabolic Odn068 B/C Ratio 13.3 Ratio 06/13/2015 Comp Metabolic Upl627 CALCIUM 8.3 mg/dL 06/13/2015 Comp Metabolic Ejo683 ALK PHOS 64 U/L 06/13/2015 Comp Metabolic Pwn251 AST(SGOT) 15 U/L 06/13/2015 Comp Metabolic Xpb148 ALT(SGPT) 15 U/L 06/13/2015 Comp Metabolic Tub261 BILI T 0.3 mg/dL 06/13/2015 Comp Metabolic Axq656 ALBUMIN 3.0 g/dL 06/13/2015 Comp Metabolic Kpt483 TPRO 5.5 g/dL 06/13/2015 Comp Metabolic Dlm739 GLOB 2.5 g/dL 06/13/2015 Comp Metabolic Gjr421 A/G Ratio 1.2 Ratio 06/13/2015 Comp Metabolic Huy268 Osmo 273 mOsmo 06/13/2015 Cbc With Differential Ord2 WBC 12.87 [...] 28.7 pg 06/13/2015 Cbc With Differential Ord2 [place]% 6.3 % 06/13/2015 Cbc With Differential Ord2 [...] 1.29 K/ul 06/13/2015 Cbc With Differential Ord2 [place] ABS# 0.8 K/ul 06/13/2015 Cbc With Differential Ord2 Eos ABS# 0.1 K/ul 06/13/2015 Cbc With Differential Ord2 Baso ABS# 0.0 K/ul 06/13/2015 Cbc With Differential Ord2 New Analyzer Notice Please note new ref ranges starting 05-24-2015 due to implemntation of new five part differential hematolgy analyzer. 06/13/2015 Sed Rate Ord21 ESR 22 mm/hr 06/13/2015 Cpk Ord61 CPK 55 U/L 06/13/2015 C-Reactive Protein Qnt Crqnt CRP 2.3 mg/dl 06/13/2015 Review of Systems System Result Effective Dates Constitutional recent illness 04/23/2017 Constitutional No chills [...] Result Effective Dates Notes Full Exam - ENT Constitutional general appearance [...] yellow 07/04/2016 None Full Exam - General 1994 Constitutional [...] accomodation 10/07/2014 None Procedures Procedure Codes Date THER/PROPH/DIAG INJ SC/IM CPT-4: 22228 04/23/2017 TRIAMCINOLONE ACET INJ NOS CPT-4: J3301 04/23/2017 ROCEPHIN, PER 250 MG CPT-4: J0696 04/23/2017 TRIAMCINOLONE ACET INJ NOS CPT-4: J3301 02/20/2017 TRIAMCINOLONE ACET INJ NOS CPT-4: J3301 01/28/2017 ROCEPHIN, PER 250 MG CPT-4: J0696 01/28/2017 TRIAMCINOLONE ACET INJ NOS CPT-4: J3301 12/13/2016 ROCEPHIN, PER 250 MG CPT-4: J0696 12/13/2016 THER/PROPH/DIAG INJ SC/IM CPT-4: 01446 09/17/2016 TRIAMCINOLONE ACET INJ NOS CPT-4: J3301 09/17/2016 PROMETHAZINE HCL INJECTION CPT-4: J2550 07/01/2016 TRIAMCINOLONE ACET INJ NOS CPT-4: J3301 03/22/2016 URINALYSIS NONAUTO W/O SCOPE CPT-4: 44878 12/11/2015 Vital Signs Date Vital 04/23/2017 Blood Pressure 1: 120/78 Code : 8480-6 BMI: 44.1 Code : 06494-2 Heart Rate 1 : 102 bpm Height: 5'8" SpO2: 98% Temperature: 37.3 (C) / 99.1 (F) Weight: 290 lbs 03/27/2017 Blood Pressure 1: 138/76 Code : 8480-6 Heart Rate 1: 84 bpm Height: SpO2: 96% Temperature: 37.3 (C) / 99.2 (F) Weight: 03/04/2017 Blood Pressure 1: 132/84 Code : 8480-6 BMI: 42.6 Code : 66069-3 Heart Rate 1 : 73 bpm Height: [...] Code : 8480-6 BMI: 42.6 Code : 71770-5 Heart Rate 1 : 92 bpm Height: 5'8" SpO2: 99% Temperature: 37.4 (C) / 99.4 (F) Weight: 280 lbs 01/28/2017 Blood Pressure 1: 128/60 Code : 8480-6 BMI: 42.6 Code : 58268-3 Heart Rate 1 : 78 bpm Height: 5'8" SpO2: 97% Weight: 280 lbs 12/13/2016 Blood Pressure 1: 144/82 Code : 8480-6 BMI: 42.1 Code : 80633-9 Heart Rate 1 : 77 bpm Height: 5'8" SpO2: 98% Weight: 277 lbs 10/21/2016 Blood Pressure 1: 136/84 Code : 8480-6 Heart Rate 1: 63 bpm Height: 5'8" SpO2: 98% Temperature: 37.3 (C) / 99.1 (F) Weight: 09/30/2016 Blood Pressure 1: 128/74 Code : 8480-6 BMI: 41.1 Code : 06723-6 Heart Rate 1 : 65 bpm Height: 5'8" SpO2: 99% Weight: 270 lbs 09/17/2016 Blood Pressure 1: 162/72 Code : 8480-6 BMI: 41.1 Code : 16396-7 Heart Rate 1 : 86 bpm Height: 5'8" SpO2: 92% Weight: 270 lbs 07/15/2016 Blood Pressure 1: 122/64 Code : 8480-6 BMI: 39.5 Code : 77075-7 Heart Rate 1 : 89 bpm Height: 5'8" SpO2: 98% Temperature: 37.2 (C) / 99.0 (F) Weight: 260 lbs 07/04/2016 Blood Pressure 1: 136/82 Code : 8480-6 Heart Rate 1: 104 bpm Height: SpO2: 98% Weight: 07/01/2016 Blood Pressure 1: 138/72 Code : 8480-6 Heart Rate 1: 101 bpm SpO2: 98% 06/05/2016 Blood Pressure 1: 132/82 Code : 8480-6 BMI: 38.6 Code : 16884-8 Heart Rate 1 : 98 bpm Height: 5'8" SpO2: 97% Temperature: 36.8 (C) / 98.2 (F) Weight: 254 lbs 04/02/2016 Blood Pressure 1: 148/92 Code : 8480-6 BMI: 40.3 Code : 62823-9 Heart Rate 1 : 112 bpm Height: 5'8" SpO2: 98% Weight: 265 lbs 03/22/2016 Blood Pressure 1: 134/72 Code : 8480-6 BMI: 40.3 Code : 77073-1 Heart Rate 1 : 120 bpm Height: 5'8" SpO2: 98% Temperature: 38.7 (C) / 101.6 (F) Weight: 265 lbs 03/05/2016 Blood Pressure 1: 144/66 Code : 8480-6 BMI: 40.4 Code : 74965-6 Heart Rate 1 : 82 bpm Height: 5'8" SpO2: 92% Weight: 266 lbs 01/29/2016 Blood Pressure 1: 128/86 Code : 8480-6 BMI: 42.4 Code : 51491-5 Heart Rate 1 : 95 bpm Height: 5'8" SpO2: 96% Temperature: 37.5 (C) / 99.5 (F) Weight: 279 lbs 12/11/2015 Blood Pressure 1: 130/80 Code : 8480-6 BMI: 41.7 Code : 17926-1 Heart Rate 1 : 79 bpm Height: 5'8" SpO2: 96% Weight: 274 lbs 11/09/2015 Blood Pressure 1: 136/80 Code : 8480-6 BMI: 38.8 Code : 55356-8 Heart Rate 1 : 80 bpm Height: 5'8" SpO2: 99% Weight: 255 lbs 09/12/2015 Blood Pressure 1: 158/88 Code : 8480-6 BMI: 38.6 Code : 01836-4 Heart Rate 1 : 83 bpm Height: 5'8" SpO2: 98% Weight: 254 lbs 08/28/2015 Blood Pressure 1: 138/84 Code : 8480-6 BMI: 36.8 Code : 82802-4 Heart Rate 1 : 128 bpm Height: 5'8" SpO2: 99% Weight: 242 lbs 08/11/2015 Blood Pressure 1: 140/96 Code : 8480-6 BMI: 37.7 Code : 49372-4 Heart Rate 1 : 93 bpm Height: 5'8" SpO2: 98% Weight: 248 lbs 07/31/2015 Blood Pressure 1: 160/80 Code : 8480-6 BMI: 37.7 Code : 52544-8 Heart Rate 1 : 122 bpm Height: 5'8" SpO2: 98% Temperature: 37.2 (C) / 98.9 (F) Weight: 248 lbs 06/12/2015 Blood Pressure 1: 134/82 Code : 8480-6 BMI: 36.2 Code : 44066-1 Heart Rate 1 : 102 bpm Height: 5'8" SpO2: 99% Weight: 238 lbs 01/20/2015 Blood Pressure 1: 132/82 Code : 8480-6 BMI: 35.6 Code : 46838-9 Heart Rate 1 : 84 bpm Height: 5'8" SpO2: 96% Weight: 234 lbs 10/07/2014 Blood Pressure 1: 132/82 Code : 8480-6 BMI: 34.5 Code : 69175-4 Heart Rate 1 : 95 bpm Height: 5'8" SpO2: 99% Weight: 227 lbs Functional Status No Functional Status data History of Present Illness Symptom Name Status Result Effective Date Notes sinus congestion Location frontal sinuses 04/23/2017 None [...] data Encounters Encounter Performer Location Codes Date 93705 EST. PATIENT, LEVEL IV Diagnosis: Acute suppurative otitis media without spontaneous rupture of ear drum, right ear[ICD10: H66.001] Diagnosis: 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[ICD10 : M32.15] Shobha Jarvis MD, [facility] CPT-4: 92069 2016 74607 EST. PATIENT, LEVEL IV Diagnosis: 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[ICD10 : M32.15] Diagnosis: Hematuria, unspecified[ICD10: R31.9] Diagnosis: Other malaise[ICD10: R53.81] Shobha Jarvis MD, [facility] CPT-4 : 07149 03/27/2017 71402 EST. PATIENT, LEVEL IV Diagnosis: Systemic lupus erythematosus, organ or system involvement unspecified [ICD10: M32.10] Diagnosis: Other fatigue[ICD10: R53.83] Diagnosis: Other malaise[ICD10: R53.81] Diagnosis: Fever, unspecified[ICD10: R50.9] Shobha Jarvis MD, [facility] CPT- 4: 48474 03/04/2017 52724 EST. PATIENT, LEVEL IV Diagnosis: 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[ICD10 : M32.15] Diagnosis: Fever, unspecified[ICD10: R50.9] Shobha Jarvis MD, [facility] CPT- 4: 25076 02/25/2017 83873 EST. PATIENT, LEVEL IV Diagnosis: Other acute sinusitis[ICD10: J01.80] Diagnosis: Acute laryngopharyngitis[ICD10: J06.0] Diagnosis: Other allergic rhinitis[ICD10: J30.89] Shobha Jarvis MD, [facility] CPT-4: 30124 02/20/2017 06835 EST. PATIENT, LEVEL III Diagnosis: 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[ICD10 : M32.15] Shobha Jarvis MD, [facility] CPT-4: 79240 2016 64925 EST. PATIENT, LEVEL III Diagnosis: Systemic lupus erythematosus, organ or system involvement unspecified [ICD10: M32.10] Diagnosis: Paresthesia of skin[ICD10: R20.2] Diagnosis: Dysuria[ICD10: R30.0] Shobha Jarvis MD, [facility] CPT-4: 28373 01/28/2017 82923 EST. PATIENT, LEVEL III Diagnosis: 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[ICD10 : M32.15] Shobha Jarvis MD, [facility] CPT-4: 97322 2016 ([id number]) 74486 EST. PATIENT, LEVEL III Diagnosis: Cough[ICD10: R05] Diagnosis: Acute upper respiratory infection, unspecified[ICD10: J06.9] Ela Jarvis MD, [facility] CPT-4: 76486 10/21/2016 69442 EST. PATIENT, LEVEL IV Diagnosis: Generalized anxiety disorder[ICD10: F41.1] Diagnosis: Systemic lupus erythematosus, organ or system involvement unspecified [ICD10: M32.10] Shobha Jarvis MD, [facility] CPT-4: 12184 09/30/2016 87309 EST. PATIENT, LEVEL IV Diagnosis: Systemic lupus erythematosus, organ or system involvement unspecified [ICD10: M32.10] Shobha Jarvis MD, [facility] CPT-4: 30246 09/17/2016 83537 EST. PATIENT, LEVEL IV Diagnosis: Acute laryngopharyngitis[ICD10: J06.0] Shobha Jarvis MD, [facility] CPT-4: 67054 07/15/2016 44105 EST. PATIENT, LEVEL III Diagnosis: Other acute sinusitis[ICD10: J01.80] Diagnosis: Other allergic rhinitis[ICD10: J30.89] Nancy Jarvis MD, [facility] CPT-4: 28632 07/04/2016 59083 EST. PATIENT, LEVEL IV Diagnosis: Migraine without aura, intractable, without status migrainosus[ICD10 : G43.019] Diagnosis: Paresthesia of skin[ICD10: R20.2] Diagnosis: Dysuria[ICD10: R30.0] Shobha Jarvis MD, [facility] CPT-4: 60928 07/01/2016 59693 EST. PATIENT, LEVEL III Diagnosis: Acute laryngopharyngitis[ICD10: J06.0] Diagnosis: Other acute sinusitis[ICD10: J01.80] Diagnosis: Other allergic rhinitis[ICD10: J30.89] Shobha Jarvis MD, [facility] CPT-4: 46725 06/05/2016 11459 EST. PATIENT, LEVEL III Diagnosis: Other allergic rhinitis[ICD10: J30.89] Shobha Jarvis MD, [facility] CPT-4: 68522 04/02/2016 76768 EST. PATIENT, LEVEL IV Diagnosis: Acute suppurative otitis media without spontaneous rupture of ear drum, bilateral[ICD10: H66.003] Diagnosis: Other acute sinusitis[ICD10: J01.80] Shobha Jarvis MD, [facility] CPT-4: 87948 03/22/2016 18596 EST. PATIENT, LEVEL III Diagnosis: Systemic lupus erythematosus, organ or system involvement unspecified [ICD10: M32.10] Diagnosis: Hypokalemia[ICD10: E87.6] Diagnosis: Dysphagia, oropharyngeal phase[ICD10: R13.12] Shobha Jarvis MD, [facility] CPT-4: 37934 03/05/2016 ([id number]) Miscellaneous no charge Diagnosis: Rash and other nonspecific skin eruption[ICD10: R21] Ela Jarvis MD, [facility] CPT-4: 91537 02/01/2016 ([id number]) 28393 EST. PATIENT, LEVEL III Diagnosis: Acute recurrent maxillary sinusitis[ICD10: J01.01] Ela Jarvis MD, [facility] CPT-4: 34499 01/29/2016 ([id number]) 83469 EST. PATIENT, LEVEL III Diagnosis: Urinary tract infection, site not specified[ICD10: N39.0] Diagnosis: Low back pain[ICD10: M54.5] Ela Jarvis MD, [facility] CPT-4: 36078 12/11/2015 90450 EST. PATIENT, LEVEL IV Diagnosis: Other acute sinusitis[ICD10: J01.80] Shobha Jarvis MD, [facility] CPT-4: 09934 11/09/2015 ([id number]) 50676 EST. PATIENT, LEVEL III Diagnosis: Hypokalemia[ICD10: E87.6] Diagnosis: Localized edema[ICD10: R60.0] Ela Jarvis MD, [facility] CPT-4: 28964 09/12/2015 71587 EST. PATIENT, LEVEL III Diagnosis: Impacted cerumen, bilateral[ICD10: H61.23] Diagnosis: Systemic lupus erythematosus, organ or system involvement unspecified [ICD10: M32.10] Shobha Jarvis MD, [facility] CPT-4: 99261 08/28/2015 56990 EST. PATIENT, LEVEL IV Diagnosis: Impacted cerumen, right ear[ICD10: H61.21] Diagnosis: Other hemorrhoids[ICD10: K64.8] Diagnosis: Other constipation[ICD10: K59.09] Shobha Jarvis MD, [facility] CPT -4: 56646 08/11/2015 16530 EST. PATIENT, LEVEL IV Diagnosis: Acute suppurative otitis media without spontaneous rupture of ear drum, bilateral[ICD10: H66.003] Diagnosis: Diffuse otitis externa, bilateral[ICD10: H60.313] Shobha Jarvis MD, [facility] CPT-4: 96618 07/31/2015 85635 EST. PATIENT, LEVEL IV Diagnosis: Systemic lupus erythematosus, organ or system involvement unspecified [ICD10: M32.10] Diagnosis: Pain in unspecified joint[ICD10: M25.50] Diagnosis: Acute laryngopharyngitis[ICD10: J06.0] Shobha Jarvis MD, [facility] CPT-4: 38579 06/12/2015 ([id number]) 56276 EST. PATIENT, LEVEL III Diagnosis: Systemic lupus erythematosus[ICD9: 710.0] Diagnosis: JOINT PAIN-MULT JOINTS[ICD9: 719.49] Nancy Jarvis MD, [facility] CPT-4: 52210 01/20/2015 ([id number]) OFFICE VISIT, NEW - LEVEL 3 Diagnosis: Systemic lupus erythematosus[ICD9: 710.0] Diagnosis: Gastroesophageal reflux[ICD9: 530.81] Ela Jarvis MD, [facility] CPT-4: 70477 10/07/2014 Plan of Care Planned Activity Notes Codes Status Date Visit Plan: Otitis Media - discussed the [...] as needed. 04/23/2017 [facility] [phone] [facility] ([facility] Complex 04/23/2017 Patient Education: Patient Medication Summary Completed 04/23/2017 Visit Plan: Malaise, Lupus - will check UA - Pt is to follow up with her specialists at , she is to update clinic of any changes in her current treatment plan. 03/27/2017 Appointment: [facility] [phone] [facility] ([facility]) Complex 03/27/2017 Patient Education: Patient [...] plan. 03/04/2017 Appointment: [facility] [phone] [facility] ([facility] min) Complex 03/04/2017 Patient Education: Patient [...] any changes, questions, or concerns. 02/25/2017 Appointment: Baldo [facility] [phone] [facility] [place] Nurse Visit 02/25/2017 Patient Education: Patient [...] or concerns. 01/28/2017 Appointment: Shobha Bland WPtel: [facility] [place] (15 min) Moderate 01/28/2017 Patient Education: [...] with any questions or concerns. 12/13/2016 Appointment: hSobha Bland WPtel: [facility] [place] (15 min) Moderate 12/13/2016 Patient Education: Patient Medication Summary Completed 12/13/2016 Visit Plan: URI - Pt advised to increase fluids, vitamin C. Discussed natural and expected course of this diagnosis and need to alert me if symptoms do not follow expected course, or if any worse. RX sent to patient' s pharmacy. 10/21/2016 Appointment: Ela Dodson WPtel: [phone] [place] (15 min) Moderate 10/21/2016 Patient Education: Patient Medication Summary Completed 10/21/2016 Appointment: Ela Dodson WPtel: [address] [place], [place] [phone] [place] (15 min) Moderate 10/14/2016 Visit Plan: [...] before starting xanax. Lupus - defer to social media content manager 09/30/2016 Appointment: Shobha Bland WPtel: [phone] [facility] (30 min) Complex 09/30/2016 [...] or concerns. 09/17/2016 Appointment: Shobha Bland WPtel: [phone] [facility] (30 min) Complex 09/17/2016 Patient Education: Patient [...] concerns. 07/15/2016 Appointment: [facility] [phone] [facility] ([facility] [place]) Complex 07/15/2016 Patient Education: Patient [...] allergy spray. 07/04/2016 Appointment: Shobha Bland WPtel: [facility] [place] (15 min) Moderate 07/04/2016 Patient Education: Patient [...] or concerns. 07/01/2016 Appointment: Ela Dodson WPtel: [phone] [place] (10 min) Simple 07/01/2016 Appointment: Shobha Bland WPtel: [facility] (10 min) Simple 07/01/2016 Patient Education: Patient [...] allergy spray. 04/02/2016 Appointment: [facility] Dod[facility] [phone] [phone] (15 min) Moderate 04/02/2016 Patient Education: Patient [...] Medication Summary Completed 03/22/2016 Referral: Rojelio Polk [facility]:[phone] [facility] Referral Initiated 03/18/2016 Care Plan: Referral Order SNOMED-CT : [id number] Pending 03/14/2016 Visit Plan: Lupus and difficulty [...] dysphagia persists. 03/05/2016 Appointment: Ela Dodson WPtel: [facility] (30 min) Complex 03/05/2016 Patient Education: Patient Medication Summary Completed 03/05/2016 Visit Plan: Stitches removed x 2 right upper arm 02/01/2016 Appointment: Ela Dodson WPtel: [address] [place], [place] [phone] (30 min) Complex 02/01/2016 Patient Education: Patient Medication Summary Completed 02/01/2016 Visit Plan: Sinusitis - Pt has acute infection - pain in face, maxillary region, Pt informed to use decongestant, RX given to patient, sinus rinses also recommended. Call if symptoms do not show improvement. 01/29/2016 Appointment: Ela Dodson WPtel: [facility] [address] (30 min) Complex 01/29/2016 Patient Education: [...] plan. 12/11/2015 Appointment: Ela Dodson WPtel: [phone] [phone] [place] (15 min) Moderate 12/11/2015 Patient Education: Patient Medication Summary Completed 12/11/2015 Patient Education: Obesity Completed 12/11/2015 Visit Plan: Sinusitis - Pt has acute infection - pain in face, maxillary region, Pt informed to use decongestant, RX given to patient, sinus rinses also recommended. Call if symptoms do not show improvement. 11/09/2015 Appointment: Shobha Bland WPtel: [phone] [facility] (15 min) Moderate 11/09/2015 Patient Education: Patient [...] process. 08/28/2015 Appointment: Shobha Bland WPtel: [phone] [facility] [place] (15 min) Moderate 08/28/2015 Patient Education: Patient Medication Summary Completed 08/28/2015 Patient Education: Obesity Completed 08/28/2015 Appointment: Ela Dodson WPtel: [address] [place], [place] [phone] (30 min) Complex 08/25/2015 Visit Plan: Cerumen [...] Patient Medication Summary Completed 06/12/2015 Care Plan: C LIAM [place] Pending 06/12/2015 Visit Plan: Lupus nephritis-hospital follow [...] Education: Patient Medication Summary Completed 10/07/2014 [phone] [facility] [place] Referral Initiated Instructions Comment . Allergies - chronic - recommended pt [...] before starting xanax. Lupus - defer to social media content manager . Sinusitis - Pt has acute infection - pain in face, maxillary region, Pt informed to use decongestant, RX given to patient, sinus rinses also recommended. Call if symptoms do not show improvement. 1 Gram of rocephin (antibiotic) today 80mg [...] or with any questions or concerns. . URI - Pt advised to increase [...] or with any questions or concerns. . Stitches removed x 2 right upper arm . Lupus - Dr. Jarvis in to [...] sent to patient's pharmacy. . Lupus - improving - discussed with Dr. Jarvis - will have pt continue with Prednisone 25mg daily x 2 weeks. Will repeat labs and notify nephrology and rheumatology. Pt is to notify clinic with any changes in the treatment plan, or symptoms, or with any questions or concerns. . Low potassium-check labs today Edema - pt has been advised to elevate legs to prevent dependent edema, compression has been recommended to help to naturally decrease peripheral edema. Diuretic use has been discussed and pt has been instructed in appropriate use of such medication as necessary to further attempt to reduce peripheral edema. . Lupus - Dr. Jarvis in to evaluate pt - will increase Prednisone and have pt follow up with her specialists about her Rituxan - will check labs - pt is to notify clinic if symptoms do not improve, if they worsen, or with any questions or concerns. . Low potassium-check labs today Edema - pt has been advised to elevate legs to prevent dependent edema, compression has been recommended to help to naturally decrease peripheral edema. Diuretic use has been discussed and pt has been instructed in appropriate use of such medication as necessary to further attempt to reduce peripheral edema. Kenalog 80mg shot today Rocephin 1g shot [...] and adjust treatment plan as needed. . Urinary Tract Infection-discussed natural and expected [...] prevent diarrhea. Patient verbalized understanding of plan. . Otitis Media - discussed the diagnosis [...] not improving or if symptoms worsen acutely. PREDNISONE - TAKE 60MG TWICE A DAY [...] if symptoms do not show improvement. . Sinusitis - Pt has acute infection - pain in face, maxillary region, Pt informed to use decongestant, RX given to patient, sinus rinses also recommended. Call if symptoms do not show improvement. 1 Gram of rocephin (antibiotic) today 80mg [...] worsen, or with any questions or concerns. CONTINUE CARAFATE INCREASE PRILOSEC (OMEPRAZOLE) TO TWICE DAILY CALL IF SYMPTOMS DO NOT RESOLVE . Lupus-sees specialist at -on cellcept-call with any concerns or change GERD-continue carafate-start prilosec BID . Lupus - pt sees a specialist [...] keeping patient stabilized during the removal process. . 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 Lupus, fatigue, malaise, sore throat, URI [...] on any change in treatment plan. . Sinusitis - Pt has acute infection [...] in the nasal steroid allergy spray. . Malaise, Lupus - will check UA - Pt is to follow up with her specialists at , she is to update clinic of any changes in her current treatment plan. . Lupus and difficulty swallowing - pt [...] movements. Patient verbalized understanding of plan. . Discussed with Dr. Jarvis - will [...] spray in the nasal steroid allergy spray. Will send for IV levaquin and IV [...] - discussed with Dr. Jarvis - noah HOLM amoxicillin, will start on levaquin 500mg IV x 1 then 250mg PO daily x 5 doses. Will give solumedrol 125mg IV x 1, and normal saline 1L IV. Pt is to start a prednisone taper tomorrow. Pt is to notify clinic if symptoms do not improve, if they worsen, or with any changes, questions, or concerns. . URI - Pt advised to increase fluids, vitamin C. Discussed natural and expected course of this diagnosis and need to alert me if symptoms do not follow expected course, or if any worse. RX sent to patient's pharmacy. Pt is to monitor symptoms closely and notify clinic if symptoms do not improve, if they worsen, or with any questions or concerns. . URI - Pt advised to increase [...]
--- OUTSIDE RECORDS SUMMARY | 2018-01-20 11:35 | XMS REPORT | CCD ---
Author Author [facility] Address [address] [place] [address] Phone Care Team Providers Care Ply Bander Name Role Phone PP Unavailable CCM Unavailable Summary Purpose Interface Exchange Insurance Providers Payer name Policy type / Coverage type Covered constitution party ID Effective Begin Date Effective End Date [place] [facility] [id number] 2015 Unknown Family history Brother Diagnosis Age At Onset Asthma Unknown defect Unknown Mother Diagnosis Age At Onset Diabetes mellitus Type 2 Unknown Hypertension Unknown Depression Unknown Hyperlipidemia Unknown Social History Social History Element Codes Description Effective Dates Marital status Unknown Single 09/30/2016 Number of children Unknown 0 10/07/[address]: 873618464 Never smoker 10/07/[address]: 308004271 Never drinks alcohol 10/07/2014 Allergies, Adverse Reactions, [...] Start Date Stop Date Status Fill Instructions Lyrica 100 mg capsule RxNorm: 910112 1 Capsule(s) PO TID 201709/22/2017 Active Lunesta 1 mg tablet RxNorm: 809577 1 Tablet(s) PO QHS 201706/14/2017 Inactive Lunesta 1 mg tablet RxNorm: 196818 1 Tablet(s) PO QHS 201705/15/2017 Inactive Zithromax Z-John 250 mg tablet RxNorm: 920062 1 Tablet(s) PO UD 04/23/2017 04/27/2017 Inactive Lyrica 100 mg capsule RxNorm: 319708 1 Capsule(s) PO TID 201606/23/2017 Inactive prednisone 20 mg tablet RxNorm: 998336 Tablet(s) PO 60mg x 3 days, then 40mg x 3 days, then 25mg x 3 days, then back to 13mg daily 02/25/2017 No Stop Date Active Levaquin 250 mg tablet RxNorm: 370476 1 Tablet(s) PO daily 03/01/2017 Inactive amoxicillin 500 mg capsule RxNorm: 855049 1 Capsule(s) PO TID 02/20/2017 02/20/2017 Inactive Kenalog 40 mg/mL suspension for injection RxNorm: 0019490 Milliliter(s) Inj 02/20/2017 02/20/2017 Inactive Augmentin 500 mg-125 mg tablet RxNorm: 406819 1 Tablet(s) PO TID 02/20/2017 02/20/2017 Inactive Xanax 0.25 mg tablet RxNorm: 733876 1 Tablet(s) PO TID as needed anxiety 02/05/2017 No Stop Date Active prednisone 5 mg tablet RxNorm: 998261 1 Tablet(s) PO daily to take with the 20mg pill to equal 25mg daily x 2 weeks. 02/04/2017 No Stop Date Active prednisone 20 mg tablet RxNorm: 466468 1 Tablet(s) PO daily to take with the 5mg to equal 25mg daily x 2 weeks. 02/04/2017 No Stop Date Active Kenalog 40 mg/mL suspension for injection RxNorm: 0421454 Milliliter(s) Inj 01/28/2017 01/28/2017 Inactive ceftriaxone 500 mg solution for injection RxNorm: 1266338 Inj 01/28/2017 01/28/2017 Inactive prednisone 20 mg tablet RxNorm: 459126 Tablet(s) PO 60mg x 3 days, then 40mg x 3 days 01/28/2017 02/24/2017 Inactive ceftriaxone 500 mg solution for injection RxNorm: 4930481 Inj 12/13/2016 12/13/2016 Inactive Kenalog 40 mg/mL suspension for injection RxNorm: 1047206 Milliliter(s) Inj 12/13/2016 12/13/2016 Inactive prednisone 20 mg tablet RxNorm: 072200 Tablet(s) PO 60mg x 3 days, then 40mg x 3 days 12/13/2016 01/27/2017 Inactive Zithromax Z-John 250 mg tablet RxNorm: 075783 1 Tablet(s) PO UD 10/21/2016 10/25/2016 Inactive fluoxetine 10 mg tablet RxNorm: 399784 1 Tablet(s) PO BID 09/3012/28/2016 Inactive Xanax 0.25 mg tablet RxNorm: 194352 1 Tablet(s) PO TID as needed anxiety 09/30/2016 02/04/2017 Inactive prednisone 20 mg tablet RxNorm: 363815 Tablet(s) PO 60mg x 1 week, then 40mg x 1 week, then back to 20mg 09/17/2016 No Stop Date Active Kenalog 40 mg/mL suspension for injection RxNorm: 6614347 Milliliter(s) Inj 09/17/2016 09/17/2016 Inactive amoxicillin 500 mg capsule RxNorm: 691295 1 Capsule(s) PO TID 07/15/2016 07/24/2016 Inactive Zithromax Z-John 250 mg tablet RxNorm: 475897 1 Tablet(s) PO UD 07/04/2016 10/20/2016 Inactive promethazine 25 mg/mL injection solution RxNorm: 187508 Milliliter(s) Inj 07/01/2016 07/01/2016 Inactive promethazine 25 mg tablet RxNorm: 708121 1 Tablet(s) PO TID as needed 07/01/2016 07/10/2016 Inactive Flonase Allergy Relief 50 mcg/actuation nasal spray, suspension RxNorm: 4424915 1 [place] NASAL BID 06/05/2016 No Stop Date Active Zithromax Z-John 250 mg tablet RxNorm: 289448 Tablet(s) PO UD 07/03/2016 Inactive amoxicillin 500 mg capsule RxNorm: 938417 1 Capsule(s) PO TID 03/22/2016 04/04/2016 Inactive Kenalog 40 mg/mL suspension for injection RxNorm: 6386023 2 Milliliter(s) Inj 03/22/2016 03/22/2016 Inactive Diflucan 150 mg tablet RxNorm: 016274 1 Tablet(s) PO daily 03/09/2016 Inactive Diflucan 150 mg tablet RxNorm: 650481 1 Tablet(s) PO daily 03/04/2016 Inactive Keflex 500 mg capsule RxNorm: 975673 1 Capsule(s) PO TID 201502/04/2016 Inactive Keflex 500 mg capsule RxNorm: 945138 1 Capsule(s) PO TID 201512/17/2015 Inactive Augmentin 500 mg-125 mg tablet RxNorm: 696074 1 Tablet(s) PO TID 11/09/2015 11/18/2015 Inactive Anusol-HC 25 mg rectal suppository RxNorm: 6637467 1 Suppository RTL daily as needed pain 08/11/2015 No Stop Date Active Miralax 17 gram/dose oral powder RxNorm: 468498 1 taper PO 05/201512/08/2015 Inactive Ciprodex 0.3 %-0.1 % ear drops,suspension RxNorm: 811524 2 Drop(s) OTIC BID 07/31/2015 08/06/2015 Inactive amoxicillin 500 mg capsule RxNorm: 424659 1 Capsule(s) PO TID 07/31/2015 08/09/2015 Inactive Augmentin 500 mg-125 mg tablet RxNorm: 607683 1 Tablet(s) PO TID 07/07/2015 07/16/2015 Inactive Augmentin 500 mg-125 mg tablet RxNorm: 997936 1 Tablet(s) PO TID 07/07/2015 07/06/2015 Inactive Zithromax Z-John 250 mg tablet RxNorm: 770943 Tablet(s) PO UD 08/27/2015 Inactive Pennsaid 20 mg/gram/actuation (2 %) topical soln in metered -dose pump RxNorm: 6983429 2 Application TOP BID 01/20/201502/18 Inactive acetazolamide 250 mg tablet RxNorm: 876839 1 Tablet(s) PO BID 01/20/2015 02/18/2015 Inactive Pennsaid 20 mg/gram/actuation (2 %) topical soln in metered -dose pump RxNorm: 6210033 2 Application TOP BID 01/20/201501/19 Inactive cefuroxime axetil 500 mg tablet RxNorm: 700653 1 Tablet(s) PO BID 12/23/2014 12/22/2014 Inactive cefuroxime axetil 500 mg tablet RxNorm: 826470 1 Tablet(s) PO BID 12/23/2014 01/01/2015 Inactive trazodone 50 mg tablet RxNorm: 309753 1-2 Tablet(s) PO QHS 11/05/2014 Inactive mycophenolate mofetil 500 mg tablet RxNorm: 373140 2 Tablet(s) PO BID No Start Date Active Vitamin D2 50,000 unit capsule RxNorm: 027385 1 Capsule(s) PO QW No Start Date Active sucralfate 1 gram tablet RxNorm: 779960 1 Gram(s) PO QID No Start Date Active ferrous fumarate 325 mg (106 mg iron) tablet RxNorm: 498070 1 Tablet(s) PO daily No Start Date Active aspirin, buffered 81 mg tablet,delayed release RxNorm: 886749 1 Tablet(s) PO daily No Start Date Active potassium chloride ER 20 mEq tablet,extended release RxNorm: 144249 1 Tablet(s) PO BID No Start Date Active Calcium 500 + D (D3) oral RxNorm: 105662 oral No Start Date Active tramadol 50 mg tablet RxNorm: 138863 1 Tablet(s) PO BID as needed No Start Date Active prednisone 10 mg tablet RxNorm: 707142 1 Tablet(s) PO daily No Start Date Active Nexium 40 mg capsule,delayed release RxNorm: 098221 1 Capsule(s) PO daily Started by specialist No Start Date Active hydroxychloroquine 200 mg tablet RxNorm: 957913 1 Tablet(s) PO BID No Start Date Active tacrolimus 1 mg capsule RxNorm: 621061 1 Capsule(s) PO daily No Start Date 06/23/2016 Inactive amitriptyline 25 mg tablet RxNorm: 807651 1 Tablet(s) PO daily No Start Date 06/11/2015 Inactive Lyrica 75 mg capsule RxNorm: 094144 1 Capsule(s) PO daily No Start Date 02/03/2017 Inactive celecoxib 100 mg capsule RxNorm: 152071 1 Capsule(s) PO daily No Start Date 01/19/2015 Inactive fluoxetine 10 mg tablet RxNorm: 104872 1 Tablet(s) PO daily No Start Date 09/29/2016 Inactive Lyrica 100 mg capsule RxNorm: 707344 1 Capsule(s) PO TID No Start Date 03/26/2017 Inactive Medication Administered Medication Codes Instructions Start Date Status Kenalog 40 mg/mL suspension for injection RxNorm: 3311091 Milliliter 02/20/2017 No longer Active ceftriaxone 500 mg solution for injection RxNorm: 0298803 01/28/2017 No longer Active Kenalog 40 mg/mL suspension for injection RxNorm: 8145637 Milliliter 01/28/2017 No longer Active ceftriaxone 500 mg solution for injection RxNorm: 2051115 12/13/2016 No longer Active Kenalog 40 mg/mL suspension for injection RxNorm: 2431530 Milliliter 12/13/2016 No longer Active Kenalog 40 mg/mL suspension for injection RxNorm: 1503700 Milliliter 09/17/2016 No longer Active promethazine 25 mg/mL injection solution RxNorm: 245043 Milliliter 07/01/2016 No longer Active Kenalog 40 mg/mL suspension for injection RxNorm: 0786242 2Milliliter 03/22/2016 No longer Active Immunizations Vaccine [...] Observation Code Item Item Code Result Date Comp Metabolic Yxz223 NA 142 mEq/L 04/23/2017 Comp Metabolic Vic191 K 3.6 mEq/L 04/23/2017 Comp Metabolic Ijj384 CL 108 mEq/L 04/23/2017 Comp Metabolic Pfo560 CO2 23.0 mEq/L 04/23/2017 Comp Metabolic Bpc356 ANION GAP 15 04/23/2017 Comp Metabolic Vay564 GLUCOSE 93 mg/dL 04/23/2017 Comp Metabolic Lbj923 Creat 0.9 mg/dL 04/23/2017 Comp Metabolic Lwy022 eGFR 82 ml/min/1.73m2 04/23/2017 Comp Metabolic Kcw413 BUN 10 mg/dL 04/23/2017 Comp Metabolic Gyo532 B/C Ratio 10.9 Ratio 04/23/2017 Comp Metabolic Vrz148 CALCIUM 8.5 mg/dL 04/23/2017 Comp Metabolic Our773 ALK PHOS 51 U/L 04/23/2017 Comp Metabolic Rik946 AST(SGOT) 17 U/L 04/23/2017 Comp Metabolic Nwz061 ALT(SGPT) 15 U/L 04/23/2017 Comp Metabolic Spf655 BILI T 0.2 mg/dL 04/23/2017 Comp Metabolic Tcp305 ALBUMIN 3.3 g/dL 04/23/2017 Comp Metabolic Cnv689 TPRO 5.7 g/dL 04/23/2017 Comp Metabolic Zsu887 GLOB 2.4 g/dL 04/23/2017 Comp Metabolic Cxg257 A/G Ratio 1.4 Ratio 04/23/2017 Comp Metabolic Svp904 Osmo 282 mOsmo 04/23/2017 Cbc With Differential Ord2 WBC 6.58 K/ul 04/23/2017 Cbc With Differential Ord2 RBC 4.75 M/ul 04/23/2017 Cbc With Differential Ord2 HGB 11.9 g/dl 04/23/2017 Cbc With Differential Ord2 HCT 37.5 % 04/23/2017 Cbc With Differential Ord2 Neut% 58.5 % 04/23/2017 Cbc With Differential Ord2 Lymph% 28.9 % 04/23/2017 Cbc With Differential Ord2 MCV 78.9 fl 04/23/2017 Cbc With Differential Ord2 Rowan% 9.7 % 04/23/2017 Cbc With Differential Ord2 MCH 25.1 pg 04/23/2017 Cbc With Differential Ord2 Eos% 2.6 % 04/23/2017 Cbc With Differential Ord2 MCHC 31.7 pg 04/23/2017 Cbc With Differential Ord2 PLT 247 K/ul 04/23/2017 Cbc With Differential Ord2 Baso% 0.3 % 04/23/2017 Cbc With Differential Ord2 Neut ABS# 3.85 K/ul 04/23/2017 Cbc With Differential Ord2 RDW 16.7 % 04/23/2017 Cbc With Differential Ord2 Lymph ABS# 1.90 K/ul 04/23/2017 Cbc With Differential Ord2 Rowan ABS# 0.6 K/ul 04/23/2017 Cbc With Differential Ord2 Eos ABS# 0.2 K/ul 04/23/2017 Cbc With Differential Ord2 Baso ABS# 0.0 K/ul 04/23/2017 Urine Culture Ucult Preliminary NO Growth Day 1 03/31/2017 Urine Culture Ucult Complete NO Growth Day 2 03/31/2017 Random Urine Protein/Creatinine Ratio [id number] U Prot 427.0 mg/dl 03/28/2017 Random Urine Protein/Creatinine Ratio Vwv7335 U CREAT 99.0 mg/dL 03/28/2017 Random Urine Protein/Creatinine Ratio Ihx7024 R MTP/Creat Ratio 4.31 03/28/2017 Comp Metabolic Msc553 NA 141 mEq/L 02/04/2017 Comp Metabolic Soq460 K 4.7 mEq/L 02/04/2017 Comp Metabolic Mao612 CL 108 mEq/L 02/04/2017 Comp Metabolic Lwi155 CO2 25.0 mEq/L 02/04/2017 Comp Metabolic Aad855 ANION GAP 13 02/04/2017 Comp Metabolic Gfe408 GLUCOSE 119 mg/dL 02/04/2017 Comp Metabolic Grg668 Creat 1.1 mg/dL 02/04/2017 Comp Metabolic Pda388 eGFR 66 ml/min/1.73m2 02/04/2017 Comp Metabolic Kps312 BUN 23 mg/dL 02/04/2017 Comp Metabolic Tns280 B/C Ratio 20.7 Ratio 02/04/2017 Comp Metabolic Ehh822 CALCIUM 9.3 mg/dL 02/04/2017 Comp Metabolic Zuh517 ALK PHOS 66 U/L 02/04/2017 Comp Metabolic Xdl778 AST(SGOT) 11 U/L 02/04/2017 Comp Metabolic Sac144 ALT(SGPT) 12 U/L 02/04/2017 Comp Metabolic Zcq736 BILI T 0.2 mg/dL 02/04/2017 Comp Metabolic Rva307 ALBUMIN 3.7 g/dL 02/04/2017 Comp Metabolic Hwe807 TPRO 6.0 g/dL 02/04/2017 Comp Metabolic Gjh191 GLOB 2.3 g/dL 02/04/2017 Comp Metabolic Zwn063 A/G Ratio 1.6 Ratio 02/04/2017 Comp Metabolic Tyw335 Osmo 286 mOsmo 02/04/2017 Urinalysis U-Color Yellow [...] 25.2 pg 02/04/2017 Cbc With Differential Ord2 Rowan% 4.7 % 02/04/2017 Cbc With Differential Ord2 [...] 1.92 K/ul 02/04/2017 Cbc With Differential Ord2 Rowan ABS# 0.7 K/ul 02/04/2017 Cbc With Differential Ord2 Eos ABS# 0.0 K/ul 02/04/2017 Cbc With Differential Ord2 Baso ABS# 0.0 K/ul 02/04/2017 Culture Urine [id number] URINE CULTURE SEE NOTES 02/03/2017 Urine Culture Ucult Complete >100,000 col/ml aerobic growth sent to ref lab 01/31/2017 Comp Metabolic Fvr120 NA 135 mEq/L 01/30/2017 Comp Metabolic Ntx326 K 4.8 mEq/L 01/30/2017 Comp Metabolic Ubi291 CL 104 mEq/L 01/30/2017 Comp Metabolic Cnm548 CO2 22.0 mEq/L 01/30/2017 Comp Metabolic Ifp183 ANION GAP 14 01/30/2017 Comp Metabolic Wif985 GLUCOSE 107 mg/dL 01/30/2017 Comp Metabolic Ylg639 Creat 1.4 mg/dL 01/30/2017 Comp Metabolic Gqh094 eGFR 51 ml/min/1.73m2 01/30/2017 Comp Metabolic Buv670 BUN 24 mg/dL 01/30/2017 Comp Metabolic Dgb888 B/C Ratio 17.3 Ratio 01/30/2017 Comp Metabolic Kaf266 CALCIUM 8.7 mg/dL 01/30/2017 Comp Metabolic Fvs315 ALK PHOS 54 U/L 01/30/2017 Comp Metabolic Dla286 AST(SGOT) 14 U/L 01/30/2017 Comp Metabolic Vib175 ALT(SGPT) 15 U/L 01/30/2017 Comp Metabolic Ght190 BILI T 0.2 mg/dL 01/30/2017 Comp Metabolic Rmy677 ALBUMIN 3.6 g/dL 01/30/2017 Comp Metabolic Mpy259 TPRO 6.1 g/dL 01/30/2017 Comp Metabolic Nzd567 GLOB 2.5 g/dL 01/30/2017 Comp Metabolic Vyv065 A/G Ratio 1.5 Ratio 01/30/2017 Comp Metabolic Oay966 Osmo 275 mOsmo 01/30/2017 Random Urine Protein/Creatinine Ratio [id number] U Prot 115.0 mg/dl 01/30/2017 Random Urine Protein/Creatinine Ratio Uhd3998 U CREAT 135.0 mg/dL 01/30/2017 Random Urine Protein/Creatinine Ratio Ban0170 R MTP/Creat Ratio 0.85 01/30/2017 Urinalysis Ord28 [...] U-VOL VOLUME SUFFICIENT (10mL) 01/30/2017 Urinalysis Ord28 U-Com Culture to follow 01/30/2017 Urinalysis Ord28 U-Yeast NEGATIVE 01/30/2017 Comp Metabolic Ttd377 NA 138 mEq/L 01/29/2017 Comp Metabolic Cnt317 K 4.6 mEq/L 01/29/2017 Comp Metabolic Dan092 CL 107 mEq/L 01/29/2017 Comp Metabolic Nqo331 CO2 21.0 mEq/L 01/29/2017 Comp Metabolic Kfr016 ANION GAP 15 01/29/2017 Comp Metabolic Igp082 GLUCOSE 91 mg/dL 01/29/2017 Comp Metabolic Yrg002 Creat 1.8 mg/dL 01/29/2017 Comp Metabolic Sdq416 eGFR 38 ml/min/1.73m2 01/29/2017 Comp Metabolic Mej658 BUN 26 mg/dL 01/29/2017 Comp Metabolic Wwj540 B/C Ratio 14.6 Ratio 01/29/2017 Comp Metabolic Pin162 CALCIUM 8.8 mg/dL 01/29/2017 Comp Metabolic Sxb453 ALK PHOS 58 U/L 01/29/2017 Comp Metabolic Xgm417 AST(SGOT) 14 U/L 01/29/2017 Comp Metabolic Ltr745 ALT(SGPT) 14 U/L 01/29/2017 Comp Metabolic Yos574 BILI T 0.2 mg/dL 01/29/2017 Comp Metabolic Bnk660 ALBUMIN 3.4 g/dL 01/29/2017 Comp Metabolic Oes958 TPRO 5.6 g/dL 01/29/2017 Comp Metabolic Vuv202 GLOB 2.2 g/dL 01/29/2017 Comp Metabolic Whz919 A/G Ratio 1.6 Ratio 01/29/2017 Comp Metabolic Kxn667 Osmo 280 mOsmo 01/29/2017 Cbc With Differential [...] 78.5 fl 01/28/2017 Cbc With Differential Ord2 Rowan% 9.6 % 01/28/2017 Cbc With Differential Ord2 [...] 2.46 K/ul 01/28/2017 Cbc With Differential Ord2 Rowan ABS# 0.7 K/ul 01/28/2017 Cbc With Differential Ord2 Eos ABS# 0.1 K/ul 01/28/2017 Cbc With Differential Ord2 Baso ABS# 0.0 K/ul 01/28/2017 Urine Culture Ucult Preliminary NO Growth Day 1 09/19/2016 Urine Culture Ucult Complete NO Growth Day 2 09/19/2016 Comp Metabolic Lzm715 NA 140 mEq/L 09/17/2016 Comp Metabolic Vuh751 K 3.8 mEq/L 09/17/2016 Comp Metabolic Dhj628 CL 110 mEq/L 09/17/2016 Comp Metabolic Nox325 CO2 20.0 mEq/L 09/17/2016 Comp Metabolic Zhv339 ANION GAP 14 09/17/2016 Comp Metabolic Flm187 GLUCOSE 88 mg/dL 09/17/2016 Comp Metabolic Prk165 Creat 1.3 mg/dL 09/17/2016 Comp Metabolic Ohe161 eGFR 54 ml/min/1.73m2 09/17/2016 Comp Metabolic Chx589 BUN 14 mg/dL 09/17/2016 Comp Metabolic Gvc248 B/C Ratio 10.6 Ratio 09/17/2016 Comp Metabolic Krj048 CALCIUM 8.1 mg/dL 09/17/2016 Comp Metabolic Zeu960 ALK PHOS 59 U/L 09/17/2016 Comp Metabolic Jdn481 AST(SGOT) 19 U/L 09/17/2016 Comp Metabolic Psc636 ALT(SGPT) 18 U/L 09/17/2016 Comp Metabolic Gya316 BILI T 0.3 mg/dL 09/17/2016 Comp Metabolic Sil291 ALBUMIN 3.0 g/dL 09/17/2016 Comp Metabolic Uwh033 TPRO 5.1 g/dL 09/17/2016 Comp Metabolic Hwf640 GLOB 2.1 g/dL 09/17/2016 Comp Metabolic Tti956 A/G Ratio 1.4 Ratio 09/17/2016 Comp Metabolic Ftp210 Osmo 279 mOsmo 09/17/2016 Hgb & Hct Ord65 HGB 10.3 g/dl 09/17/2016 Hgb & Hct Ord65 HCT 32.2 % 09/17/2016 C RAP A SC [id number] Strep A Negative 07/15/2016 Urine Culture Ucult [...] 88.3 fl 03/22/2016 Cbc With Differential Ord2 Rowan% 11.7 % 03/22/2016 Cbc With Differential Ord2 [...] 1.77 K/ul 03/22/2016 Cbc With Differential Ord2 Rowan ABS# 0.6 K/ul 03/22/2016 Cbc With Differential Ord2 Eos ABS# 0.0 K/ul 03/22/2016 Cbc With Differential Ord2 Baso ABS# 0.0 K/ul 03/22/2016 Comp Metabolic Bjf504 NA 131 mEq/L 03/22/2016 Comp Metabolic Mgl357 K 4.1 mEq/L 03/22/2016 Comp Metabolic Cux428 CL 106 mEq/L 03/22/2016 Comp Metabolic Wet102 CO2 18.0 mEq/L 03/22/2016 Comp Metabolic Myi019 ANION GAP 11 03/22/2016 Comp Metabolic Aqd780 GLUCOSE 84 mg/dL 03/22/2016 Comp Metabolic Byx664 Creat 1.6 mg/dL 03/22/2016 Comp Metabolic Qvy579 eGFR 44 ml/min/1.73m2 03/22/2016 Comp Metabolic Krg167 BUN 14 mg/dL 03/22/2016 Comp Metabolic Mth849 B/C Ratio 8.9 Ratio 03/22/2016 Comp Metabolic Npd025 CALCIUM 8.2 mg/dL 03/22/2016 Comp Metabolic Ckw864 ALK PHOS 39 U/L 03/22/2016 Comp Metabolic Oga087 AST(SGOT) 16 U/L 03/22/2016 Comp Metabolic Hqw499 ALT(SGPT) 15 U/L 03/22/2016 Comp Metabolic Mzh234 BILI T 0.3 mg/dL 03/22/2016 Comp Metabolic Ope497 ALBUMIN 2.6 g/dL 03/22/2016 Comp Metabolic Qtl219 TPRO 4.5 g/dL 03/22/2016 Comp Metabolic Ndr719 GLOB 1.9 g/dL 03/22/2016 Comp Metabolic Cpm743 A/G Ratio 1.3 Ratio 03/22/2016 Comp Metabolic Acx858 Osmo 262 mOsmo 03/22/2016 Magnesium Ord90 Mag [...] 30.2 % 03/05/2016 Cbc With Differential Ord2 Rowan% 10.0 % 03/05/2016 Cbc With Differential Ord2 [...] 1.33 K/ul 03/05/2016 Cbc With Differential Ord2 Rowan ABS# 0.4 K/ul 03/05/2016 Cbc With Differential Ord2 Eos ABS# 0.0 K/ul 03/05/2016 Cbc With Differential Ord2 Baso ABS# 0.0 K/ul 03/05/2016 Comp Metabolic Ezf050 NA 138 mEq/L 03/05/2016 Comp Metabolic Qwj584 K 3.9 mEq/L 03/05/2016 Comp Metabolic Ley744 CL 105 mEq/L 03/05/2016 Comp Metabolic Wwy900 CO2 27.0 mEq/L 03/05/2016 Comp Metabolic Gnk185 ANION GAP 10 03/05/2016 Comp Metabolic Vhn115 GLUCOSE 95 mg/dL 03/05/2016 Comp Metabolic Fdb541 Creat 1.4 mg/dL 03/05/2016 Comp Metabolic Jrd074 eGFR 53 ml/min/1.73m2 03/05/2016 Comp Metabolic Rym429 BUN 20 mg/dL 03/05/2016 Comp Metabolic Cre590 B/C Ratio 14.7 Ratio 03/05/2016 Comp Metabolic Guf891 CALCIUM 7.9 mg/dL 03/05/2016 Comp Metabolic Klq683 ALK PHOS 43 U/L 03/05/2016 Comp Metabolic Vax751 AST(SGOT) 14 U/L 03/05/2016 Comp Metabolic Vag907 ALT(SGPT) 15 U/L 03/05/2016 Comp Metabolic Smc968 BILI T 0.2 mg/dL 03/05/2016 Comp Metabolic Tez190 ALBUMIN 2.2 g/dL 03/05/2016 Comp Metabolic Ccf568 TPRO 4.0 g/dL 03/05/2016 Comp Metabolic Kzj928 GLOB 1.9 g/dL 03/05/2016 Comp Metabolic Cjo491 A/G Ratio 1.2 Ratio 03/05/2016 Comp Metabolic Unm052 Osmo 278 mOsmo 03/05/2016 Urine Culture Ucult Preliminary NO Growth Day 1 12/13/2015 Urine Culture Ucult Complete NO Growth Day 2 12/13/2015 C-Reactive Protein Qnt Crqnt CRP 2.3 mg/dl 06/13/2015 Cpk Ord61 CPK 55 U/L 06/13/2015 Comp Metabolic Nur624 NA 137 mEq/L 06/13/2015 Comp Metabolic Gye403 K 3.7 mEq/L 06/13/2015 Comp Metabolic Bep655 CL 106 mEq/L 06/13/2015 Comp Metabolic Ntr326 CO2 20.0 mEq/L 06/13/2015 Comp Metabolic Enn234 ANION GAP 15 06/13/2015 Comp Metabolic Klg052 GLUCOSE 89 mg/dL 06/13/2015 Comp Metabolic Hzh219 Creat 0.8 mg/dL 06/13/2015 Comp Metabolic Fdf784 eGFR 94 ml/min/1.73m2 06/13/2015 Comp Metabolic Dnc180 BUN 11 mg/dL 06/13/2015 Comp Metabolic Qtv020 B/C Ratio 13.3 Ratio 06/13/2015 Comp Metabolic Rfs543 CALCIUM 8.3 mg/dL 06/13/2015 Comp Metabolic Qeu162 ALK PHOS 64 U/L 06/13/2015 Comp Metabolic Dmh803 AST(SGOT) 15 U/L 06/13/2015 Comp Metabolic Erk861 ALT(SGPT) 15 U/L 06/13/2015 Comp Metabolic Fwk811 BILI T 0.3 mg/dL 06/13/2015 Comp Metabolic Bpx236 ALBUMIN 3.0 g/dL 06/13/2015 Comp Metabolic Hpz280 TPRO 5.5 g/dL 06/13/2015 Comp Metabolic Ezx065 GLOB 2.5 g/dL 06/13/2015 Comp Metabolic Hmn819 A/G Ratio 1.2 Ratio 06/13/2015 Comp Metabolic Lct979 Osmo 273 mOsmo 06/13/2015 Sed Rate Ord21 [...] 28.7 pg 06/13/2015 Cbc With Differential Ord2 Rowan% 6.3 % 06/13/2015 Cbc With Differential Ord2 [...] 1.29 K/ul 06/13/2015 Cbc With Differential Ord2 Rowan ABS# 0.8 K/ul 06/13/2015 Cbc With Differential [...] Procedure Codes Date THER/PROPH/DIAG INJ SC/IM CPT-4: 06956 04/23/2017 TRIAMCINOLONE ACET INJ NOS CPT-4: J3301 04/23/2017 ROCEPHIN, PER 250 MG CPT-4: J0696 04/23/2017 TRIAMCINOLONE ACET INJ NOS CPT-4: J3301 02/20/2017 TRIAMCINOLONE ACET INJ NOS CPT-4: J3301 01/28/2017 ROCEPHIN, PER 250 MG CPT-4: J0696 01/28/2017 TRIAMCINOLONE ACET INJ NOS CPT-4: J3301 12/13/2016 ROCEPHIN, PER 250 MG CPT-4: J0696 12/13/2016 THER/PROPH/DIAG INJ SC/IM CPT-4: 78604 09/17/2016 TRIAMCINOLONE ACET INJ NOS CPT-4: J3301 09/17/2016 PROMETHAZINE HCL INJECTION CPT-4: J2550 07/01/2016 TRIAMCINOLONE ACET INJ NOS CPT-4: J3301 03/22/2016 URINALYSIS NONAUTO W/O SCOPE CPT-4: 49172 12/11/2015 Vital Signs Date Vital 04/23/2017 Blood Pressure 1: 120/78 Code : 8480-6 BMI: 44.1 Code : 98720-6 Heart Rate 1 : 102 bpm Height: 5'8" SpO2: 98% Temperature: 37.3 (C) / 99.1 (F) Weight: 290 lbs 03/27/2017 Blood Pressure 1: 138/76 Code : 8480-6 Heart Rate 1: 84 bpm Height: SpO2: 96% Temperature: 37.3 (C) / 99.2 (F) Weight: 03/04/2017 Blood Pressure 1: 132/84 Code : 8480-6 BMI: 42.6 Code : 21775-0 Heart Rate 1 : 73 bpm Height: [...] Code : 8480-6 BMI: 42.6 Code : 30154-0 Heart Rate 1 : 92 bpm Height: 5'8" SpO2: 99% Temperature: 37.4 (C) / 99.4 (F) Weight: 280 lbs 01/28/2017 Blood Pressure 1: 128/60 Code : 8480-6 BMI: 42.6 Code : 44564-8 Heart Rate 1 : 78 bpm Height: 5'8" SpO2: 97% Weight: 280 lbs 12/13/2016 Blood Pressure 1: 144/82 Code : 8480-6 BMI: 42.1 Code : 67998-2 Heart Rate 1 : 77 bpm Height: 5'8" SpO2: 98% Weight: 277 lbs 10/21/2016 Blood Pressure 1: 136/84 Code : 8480-6 Heart Rate 1: 63 bpm Height: 5'8" SpO2: 98% Temperature: 37.3 (C) / 99.1 (F) Weight: 09/30/2016 Blood Pressure 1: 128/74 Code : 8480-6 BMI: 41.1 Code : 97803-4 Heart Rate 1 : 65 bpm Height: 5'8" SpO2: 99% Weight: 270 lbs 09/17/2016 Blood Pressure 1: 162/72 Code : 8480-6 BMI: 41.1 Code : 64075-9 Heart Rate 1 : 86 bpm Height: 5'8" SpO2: 92% Weight: 270 lbs 07/15/2016 Blood Pressure 1: 122/64 Code : 8480-6 BMI: 39.5 Code : 00054-3 Heart Rate 1 : 89 bpm Height: 5'8" SpO2: 98% Temperature: 37.2 (C) / 99.0 (F) Weight: 260 lbs 07/04/2016 Blood Pressure 1: 136/82 Code : 8480-6 Heart Rate 1: 104 bpm Height: SpO2: 98% Weight: 07/01/2016 Blood Pressure 1: 138/72 Code : 8480-6 Heart Rate 1: 101 bpm SpO2: 98% 06/05/2016 Blood Pressure 1: 132/82 Code : 8480-6 BMI: 38.6 Code : 48627-0 Heart Rate 1 : 98 bpm Height: 5'8" SpO2: 97% Temperature: 36.8 (C) / 98.2 (F) Weight: 254 lbs 04/02/2016 Blood Pressure 1: 148/92 Code : 8480-6 BMI: 40.3 Code : 29013-3 Heart Rate 1 : 112 bpm Height: 5'8" SpO2: 98% Weight: 265 lbs 03/22/2016 Blood Pressure 1: 134/72 Code : 8480-6 BMI: 40.3 Code : 66981-7 Heart Rate 1 : 120 bpm Height: 5'8" SpO2: 98% Temperature: 38.7 (C) / 101.6 (F) Weight: 265 lbs 03/05/2016 Blood Pressure 1: 144/66 Code : 8480-6 BMI: 40.4 Code : 83987-5 Heart Rate 1 : 82 bpm Height: 5'8" SpO2: 92% Weight: 266 lbs 01/29/2016 Blood Pressure 1: 128/86 Code : 8480-6 BMI: 42.4 Code : 21391-2 Heart Rate 1 : 95 bpm Height: 5'8" SpO2: 96% Temperature: 37.5 (C) / 99.5 (F) Weight: 279 lbs 12/11/2015 Blood Pressure 1: 130/80 Code : 8480-6 BMI: 41.7 Code : 64644-2 Heart Rate 1 : 79 bpm Height: 5'8" SpO2: 96% Weight: 274 lbs 11/09/2015 Blood Pressure 1: 136/80 Code : 8480-6 BMI: 38.8 Code : 74359-7 Heart Rate 1 : 80 bpm Height: 5'8" SpO2: 99% Weight: 255 lbs 09/12/2015 Blood Pressure 1: 158/88 Code : 8480-6 BMI: 38.6 Code : 79488-6 Heart Rate 1 : 83 bpm Height: 5'8" SpO2: 98% Weight: 254 lbs 08/28/2015 Blood Pressure 1: 138/84 Code : 8480-6 BMI: 36.8 Code : 15102-1 Heart Rate 1 : 128 bpm Height: 5'8" SpO2: 99% Weight: 242 lbs 08/11/2015 Blood Pressure 1: 140/96 Code : 8480-6 BMI: 37.7 Code : 48464-0 Heart Rate 1 : 93 bpm Height: 5'8" SpO2: 98% Weight: 248 lbs 07/31/2015 Blood Pressure 1: 160/80 Code : 8480-6 BMI: 37.7 Code : 93862-9 Heart Rate 1 : 122 bpm Height: 5'8" SpO2: 98% Temperature: 37.2 (C) / 98.9 (F) Weight: 248 lbs 06/12/2015 Blood Pressure 1: 134/82 Code : 8480-6 BMI: 36.2 Code : 94298-6 Heart Rate 1 : 102 bpm Height: 5'8" SpO2: 99% Weight: 238 lbs 01/20/2015 Blood Pressure 1: 132/82 Code : 8480-6 BMI: 35.6 Code : 11030-6 Heart Rate 1 : 84 bpm Height: 5'8" SpO2: 96% Weight: 234 lbs 10/07/2014 Blood Pressure 1: 132/82 Code : 8480-6 BMI: 34.5 Code : 26842-8 Heart Rate 1 : 95 bpm Height: [...] data Encounters Encounter Performer Location Codes Date 33163 EST. 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 PATIENT, LEVEL IV Diagnosis: Systemic lupus erythematosus, organ or system involvement unspecified [ICD10: M32.10] Diagnosis: Other fatigue[ICD10: R53.83] Diagnosis: Other malaise[ICD10: R53.81] Diagnosis: Fever, unspecified[ICD10: R50.9] Shobha Jarvis MD, [facility] CPT- 4: 10122 03/04/2017 02822 EST. 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 PATIENT, LEVEL IV Diagnosis: Other acute sinusitis[ICD10: J01.80] Diagnosis: Acute laryngopharyngitis[ICD10: J06.0] Diagnosis: Other allergic rhinitis[ICD10: J30.89] Shobha Jarvis MD, [facility] CPT-4: 64017 02/20/2017 60417 EST. 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 PATIENT, LEVEL III Diagnosis: Systemic lupus erythematosus, organ or system involvement unspecified [ICD10: M32.10] Diagnosis: Paresthesia of skin[ICD10: R20.2] Diagnosis: Dysuria[ICD10: R30.0] Shobha Jarvis MD, [facility] CPT-4: 83285 01/28/2017 42955 EST. 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 PATIENT, LEVEL III Diagnosis: Cough[ICD10: R05] Diagnosis: Acute upper respiratory infection, unspecified[ICD10: J06.9] Ela Jarvis MD, [facility] CPT-4: 47398 10/21/2016 62168 EST. PATIENT, LEVEL IV Diagnosis: Generalized anxiety disorder[ICD10: F41.1] Diagnosis: Systemic lupus erythematosus, organ or system involvement unspecified [ICD10: M32.10] Shobha Jarvis MD, [facility] CPT-4: 85523 09/30/2016 61533 EST. PATIENT, LEVEL IV Diagnosis: Systemic lupus erythematosus, organ or system involvement unspecified [ICD10: M32.10] Shobha Jarvis MD, [facility] CPT-4: 35880 09/17/2016 87290 EST. PATIENT, LEVEL IV Diagnosis: Acute laryngopharyngitis[ICD10: J06.0] Shobha Jarvis MD, [facility] CPT-4: 82904 07/15/2016 60107 EST. PATIENT, LEVEL III Diagnosis: Other acute sinusitis[ICD10: J01.80] Diagnosis: Other allergic rhinitis[ICD10: J30.89] Nancy Jarvis MD, [facility] CPT-4: 36361 07/04/2016 51514 EST. PATIENT, LEVEL IV Diagnosis: Migraine without aura, intractable, without status migrainosus[ICD10 : G43.019] Diagnosis: Paresthesia of skin[ICD10: R20.2] Diagnosis: Dysuria[ICD10: R30.0] Shobha Jarvis MD, [facility] CPT-4: 22003 07/01/2016 32254 EST. PATIENT, LEVEL III Diagnosis: Acute laryngopharyngitis[ICD10: J06.0] Diagnosis: Other acute sinusitis[ICD10: J01.80] Diagnosis: Other allergic rhinitis[ICD10: J30.89] Shobha Jarvis MD, [facility] CPT-4: 82064 06/05/2016 47594 EST. PATIENT, LEVEL III Diagnosis: Other allergic rhinitis[ICD10: J30.89] Shobha Jarvis MD [facility] CPT-4: 88349 04/02/2016 07428 EST. PATIENT, LEVEL IV Diagnosis: Acute suppurative otitis media without spontaneous rupture of ear drum, bilateral[ICD10: H66.003] Diagnosis: Other acute sinusitis[ICD10: J01.80] Shobha Jarvis MD [facility] CPT-4: 94625 03/22/2016 10878 EST. PATIENT, LEVEL III Diagnosis: Systemic lupus erythematosus, organ or system involvement unspecified [ICD10: M32.10] Diagnosis: Hypokalemia[ICD10: E87.6] Diagnosis: Dysphagia, oropharyngeal phase[ICD10: R13.12] Shobha Jarvis MD [facility] CPT-4: 27913 03/05/2016 ([id number]) Miscellaneous no charge Diagnosis: Rash and other nonspecific skin eruption[ICD10: R21] Ela Jarvis MD [facility] CPT-4: 29795 02/01/2016 ([id number]) 29544 EST. PATIENT, LEVEL III Diagnosis: Acute recurrent maxillary sinusitis[ICD10: J01.01] Ela Jarvis MD [facility] CPT-4: 81886 01/29/2016 ([id number]) 14942 EST. PATIENT, LEVEL III Diagnosis: Urinary tract infection, site not specified[ICD10: N39.0] Diagnosis: Low back pain[ICD10: M54.5] Ela Jarvis MD [facility] CPT-4: 36782 12/11/2015 99067 EST. PATIENT, LEVEL IV Diagnosis: Other acute sinusitis[ICD10: J01.80] Shobha Jarvis MD [facility] CPT-4: 27714 11/09/2015 ([id number]) 56910 EST. PATIENT, LEVEL III Diagnosis: Hypokalemia[ICD10: E87.6] Diagnosis: Localized edema[ICD10: R60.0] Ela Jarvis MD [facility] CPT-4: 25948 09/12/2015 54122 EST. PATIENT, LEVEL III Diagnosis: Impacted cerumen, bilateral[ICD10: H61.23] Diagnosis: Systemic lupus erythematosus, organ or system involvement unspecified [ICD10: M32.10] Shobha Jarvis MD, [facility] CPT-4: 31262 08/28/2015 78526 EST. PATIENT, LEVEL IV Diagnosis: Impacted cerumen, right ear[ICD10: H61.21] Diagnosis: Other hemorrhoids[ICD10: K64.8] Diagnosis: Other constipation[ICD10: K59.09] Shobha Jarvis MD, [facility] CPT -4: 67101 08/11/2015 97704 EST. PATIENT, LEVEL IV Diagnosis: Acute suppurative otitis media without spontaneous rupture of ear drum, bilateral[ICD10: H66.003] Diagnosis: Diffuse otitis externa, bilateral[ICD10: H60.313] Shobha Jarvis MD, [facility] CPT-4: 58462 07/31/2015 05554 EST. PATIENT, LEVEL IV Diagnosis: Systemic lupus erythematosus, organ or system involvement unspecified [ICD10: M32.10] Diagnosis: Pain in unspecified joint[ICD10: M25.50] Diagnosis: Acute laryngopharyngitis[ICD10: J06.0] Shobha Jarvis MD, [facility] CPT-4: 26483 06/12/2015 ([id number]) 54189 EST. PATIENT, LEVEL III Diagnosis: Systemic lupus erythematosus[ICD9: 710.0] Diagnosis: JOINT PAIN-MULT JOINTS[ICD9: 719.49] Nancy Jarvis MD, [facility] CPT-4: 34168 01/20/2015 ([id number]) OFFICE VISIT, NEW - LEVEL 3 Diagnosis: Systemic lupus erythematosus[ICD9: 710.0] Diagnosis: Gastroesophageal reflux[ICD9: 530.81] Ela Jarvis MD, [facility] CPT-4: 37802 10/07/2014 Plan of Care Planned Activity Notes [...] needed. 04/23/2017 Appointment: Shobha Bland WPtel: [phone] [facility] (30 min) Complex 04/23/2017 Patient Education: Patient Medication Summary Completed 04/23/2017 Visit Plan: Malaise, Lupus - will check UA - Pt is to follow up with her specialists at , she is to update clinic of any changes in her current treatment plan. 03/27/2017 Appointment: Shobha Bland WPtel: [phone] [facility] (30 min) Complex 03/27/2017 Patient Education: Patient [...] plan. 03/04/2017 Appointment: [phone] ([place] min) Complex 03/04/2017 Patient Education: Patient [...] or concerns. 02/25/2017 Appointment: Baldo Shobha WPtel: [address] [place], [place] [address] Nurse Visit 02/25/2017 Patient Education: Patient Medication [...] or concerns. 01/28/2017 Appointment: Sh[facility]ha Bland [facility]: [phone] [place] (15 min) Moderate 01/28/2017 Patient Education: [...] or concerns. 12/13/2016 Appointment: Shobha Bland WPtel: [facility] [place] (15 min) Moderate 12/13/2016 Patient Education: Patient Medication Summary Completed 12/13/2016 Visit Plan: URI - Pt advised to increase fluids, vitamin C. Discussed natural and expected course of this diagnosis and need to alert me if symptoms do not follow expected course, or if any worse. RX sent to patient' s pharmacy. 10/21/2016 Appointment: Ela Dodson WPtel: [phone] [phone] [place] (15 min) Moderate 10/21/2016 Patient Education: Patient Medication Summary Completed 10/21/2016 Appointment: Ela Dodson WPtel: [phone] [place] (15 min) Moderate 10/14/2016 Visit Plan: [...] before starting xanax. 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 09/17/2016 Appointment: Shobha Bland WPtel: [facility] (30 min) Complex 09/17/2016 Patient Education: Patient [...] or concerns. 07/15/2016 Appointment: Shobha Bland WPtel: [facility] (30 min) Complex 07/15/2016 Patient Education: Patient [...] allergy spray. 07/04/2016 Appointment: Shobha Bland WPtel: [address] [place] [address] (15 min) Moderate 07/04/2016 Patient Education: Patient [...] or concerns. 07/01/2016 Appointment: Ela Dodson WPtel: [address] [place] [phone] [place] (10 min) Simple 07/01/2016 Appointment: Shobha Bland [facility]el: [phone] (10 min) Simple 07/01/2016 Patient Education: Patient [...] allergy spray. 04/02/2016 Appointment: Ela Dodson [facility]Ptel: [phone] [place] (15 min) Moderate 04/02/2016 Patient Education: Patient [...] Medication Summary Completed 03/22/2016 Referral: Rojelio Polk HPtel:[phone] Referral Initiated 03/18/2016 Care Plan: Referral Order SNOMED-CT : [id number] Pending 03/14/2016 Visit Plan: Lupus and difficulty [...] dysphagia persists. 03/05/2016 Appointment: Ela Dodson WPtel: [address] [place] [address] (30 min) Complex 03/05/2016 Patient Education: Patient Medication Summary Completed 03/05/2016 Visit Plan: Stitches removed x 2 right upper arm 02/01/2016 Appointment: Ela Dodson WPtel: [address] [place], [place] [phone] (30 min) Complex 02/01/2016 Patient Education: Patient Medication Summary Completed 02/01/2016 Visit Plan: Sinusitis - Pt has acute infection - pain in face, maxillary region, Pt informed to use decongestant, RX given to patient, sinus rinses also recommended. Call if symptoms do not show improvement. 01/29/2016 Appointment: Ela Dodson WPtel: [facility]9 [phone] (30 min) Complex 01/29/2016 Patient Education: Patient [...] of plan. 12/11/2015 Appointment: Ela Dodson [facility]: [phone] (15 min) Moderate 12/11/2015 Patient Education: Patient Medication Summary Completed 12/11/2015 Patient Education: Obesity Completed 12/11/2015 Visit Plan: Sinusitis - Pt has acute infection - pain in face, maxillary region, Pt informed to use decongestant, RX given to patient, sinus rinses also recommended. Call if symptoms do not show improvement. 11/09/2015 Appointment: Shobha Bland [facility]Ptel: [phone] (15 min) Moderate 11/09/2015 Patient Education: Patient [...] process. 08/28/2015 Appointment: Shobha Bland WPtel: [phone] [place] [place] (15 min) Moderate 08/28/2015 Patient Education: Patient Medication Summary Completed 08/28/2015 Patient Education: Obesity Completed 08/28/2015 Appointment: Ela Dodson WPtel: [phone] [place] (30 min) Complex 08/25/2015 Visit Plan: Cerumen [...] Medication Summary Completed 06/12/2015 Care Plan: Kenia [place] Pending 06/12/2015 Visit Plan: Lupus [...] Medication Summary Completed 10/07/2014 Referral: Rojelio Polk HPtel:[phone] [facility] [place] Referral Initiated Instructions Comment PREDNISONE - TAKE 60MG TWICE A DAY [...] before starting xanax. 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 Otitis Media - discussed the diagnosis [...] not improving or if symptoms worsen acutely. . Urinary Tract Infection-discussed natural and expected [...] I called and left a message with DELFINO - If they want me to change [...] in acute flare - discussed with Dr. Matheus GALICIA positive for blood and protein - will [...] in acute flare - discussed with Dr. Matheus GALICIA positive for blood and protein - will give Kenalog and Rocephin today and start her on a Prednisone taper - pt is to follow up with her specialist and let us know if they make any changes. Pt is to notify clinic if symptoms do not improve, if they worsen, or with any questions or concerns. . Sinusitis - Pt has [...] movements. Patient verbalized understanding of plan. . Lupus - improving - discussed with [...] in the nasal steroid allergy spray. . Lupus - Dr. Jarvis in to evaluate pt - will increase Prednisone and have pt follow up with her specialists about her Rituxan - will check labs - pt is to notify clinic if symptoms do not improve, if they worsen, or with any questions or concerns.
[2018-01-20] MEDS ORDERED: oxyCODONE/APAP 5/325MG (PERCOCET 5) TABLET PO ONE (12:30)
--- NOTE | 2018-01-20 12:44 | ED Lower Extremity ---
General Chief Complaint: Lower Extremity Stated Complaint: LEFT KNEE PAIN Nursing Triage Note: PT HAD A ALL ON FRIDAY AND FELT A POP, STATES SHE HEARD A POP. PT HAS A LONG HX OF LUPUS, RA, AND KIDNEY DISEASE. STATES THE KNEE HAS POPPED IN AND OUT OF SOCKET SINCE SHE WAS A YOUNG GIRL Nursing Sepsis Screen: No Definite Risk Source: patient Exam Limitations: no limitations History of Present Illness Date Seen by Provider: Jan 20, 2018 Time Seen by Provider: 12:00 Initial Comments Patient is a 22-year-old female who presents to the emergency room with complaints of a fall and feeling a pop in her left knee 3 days ago. She has a had trouble with the left knee prior to the fall and had an MRI up at and was told that there is some scar tissue on the knee last month. She has tried several topical lidocaine, heating pad, ice packs, tramadol without relief. She has a long history of lupus, rheumatoid arthritis, and kidney disease and is currently undergoing chemotherapy at this time. Onset: other (3 days) Pain/Injury Location: left knee Method of Injury: fell Modifying Factors: Improves With Immobilization; Worse With Movement Allergies and Home Medications Allergies Coded Allergies: No Known Drug Allergies (Unverified , 07/15/16) Home Medications Acetaminophen 650 Mg Tablet.er, 1,300 MG PO BID PRN for PAIN, (Reported) TAKES 2 (650MG) TABLETS Albuterol Sulfate 6.7 Gm Hfa.aer.ad, 2 PUFF INH Q6H PRN for SHORTNESS OF BREATH, (Reported) Amlodipine Besylate 10 Mg Tablet, 10 MG PO DAILY, (Reported) Amoxicillin 500 Mg Capsule, 500 MG PO TID, (Reported) 10 DAY SUPPLY FILLED 07-15-16 Aspirin 81 Mg Tablet.dr, 81 MG PO DAILY, (Reported) Carboxymethylcellulose Sodium 15 Ml Drops, 1-2 DROPS OU QID PRN for DRY EYES, ( Reported) Carvedilol 12.5 Mg Tablet, 12.5 MG PO BID, (Reported) Ergocalciferol 50,000 Unit Capsule, 50,000 UNIT PO Th, (Reported) Esomeprazole Magnesium 22.3 Mg Capsule.dr, 22.3 MG PO BID, (Reported) Fluoxetine HCl 10 Mg Capsule, 10 MG PO DAILY, (Reported) Fluticasone Propionate 16 Gm Drummond.susp, 1 SPRAY NS BID PRN for CONGESTION, ( Reported) Furosemide 40 Mg Tablet, 20 MG PO DAILY, (Reported) Hydralazine HCl 25 Mg Tablet, 25 MG PO TID PRN for BLOOD PRESSURE, (Reported) take if systolic BP >170 Hydroxychloroquine Sulfate 200 Mg Tablet, 200 MG PO BID, (Reported) Isomethept/Dichlphn/Acetaminop 1 Each Capsule, 1 CAP PO BID PRN for MIGRAINE, ( Reported) TAKE 1 CAPSULE AT ONSET OF GARCIA AND MAY REPEAT IF NEEDED, NOT TO EXCEED MORE THAN 2 CAPSULES IN ONE DAY Lisinopril 5 Mg Tablet, 30 MG PO DAILY, (Reported) TAKES 6 (5MG) TABLETS Ondansetron 4 Mg/Udtablet Tab.rapdis, 4 MG PO Q6H PRN for NAUSEA, (Reported) Oxycodone HCl/Acetaminophen 1 Each Tablet, 1 EACH PO Q6H PRN for PAIN-MODERATE Prescribed by: VITALIY MCGOVERN on 01/20/18 1550 Potassium Chloride 20 Meq Tab.er.prt, 20 MEQ PO DAILY, (Reported) Prednisone 10 Mg Tab, 20 MG PO DAILY, (Reported) Pregabalin 75 Mg Capsule, 75 MG PO HS, (Reported) Sulfamethoxazole/Trimethoprim 1 Each Tablet, 0.5 TAB PO MoWeFr, (Reported) Trazodone HCl 50 Mg Tablet, 50-100 MG PO HS, (Reported) TAKES 1 TO 2 (50MG) TABLETS Patient Home Medication List Home Medication List Reviewed: Yes Review of Systems Constitutional: see HPI; No chills, No fever Musculoskeletal: see HPI, joint pain (left knee pain) All Other Systems Reviewed Negative Unless Noted: Yes Past Vechyxv-Ifwrzn-Zrkyoh Hx Past Med/Social Hx: Reviewed Nursing Past Med/Soc Hx Patient Social History Alcohol Use: Denies Use Recreational Drug Use: No Smoking Status: Never a Smoker 2nd Hand Smoke Exposure: No Recent Foreign Travel: No Contact w/Someone Who Travel: No Recent Infectious Disease Expo: No Recent Hopitalizations: No Immunizations Up To Date Tetanus Booster (TDap): Unknown PED Vaccines UTD: Yes Date of Pneumonia Vaccine: Feb 09, 2016 Date of Influenza Vaccine: Feb 09, 2016 Seasonal Allergies Seasonal Allergies: No Past Medical History Surgeries: Yes (3 KIDNEY BIOPSIES) Respiratory: Yes (CPAP) Sleep Apnea Currently Using CPAP: Yes Currently Using BIPAP: No Cardiac: Yes Hypertension Neurological: Yes Headaches /Migraines : No Reproductive Disorders: No Female Reproductive Disorders: Denies Sexually Transmitted Disease: No HIV/AIDS: No Genitourinary: Yes Renal Failure, UTI-Chronic Gastrointestinal: Yes Gastroesophageal Reflux Musculoskeletal: Yes (LUPUS) Arthritis, Rheumatoid Arthritis Endocrine: Yes (LUPUS NEPHRITIS) Lupus HEENT: No Loss of Vision: Denies Hearing Impairment: Denies Cancer: No Psychosocial: Yes Depression Integumentary: No Blood Disorders: Yes (ANEMIA) Adverse Reaction/Blood Tranf: No Family Medical History Reviewed Nursing Family Hx Asthma G8 BROTHER G8 BROTHER Diabetes mellitus 19 MOTHER Hypercholesterolemia 19 MOTHER Hypertension 19 MOTHER Heart Disease, Diabetes, Hypertension Physical Exam Vital Signs Vital Signs - First Documented 01/20/18 11:58 Temp 99.6 Pulse 118 Resp 18 B/P (MAP) 188/113 (138) Pulse Ox 97 O2 Delivery Room Air Capillary Refill : Less Than 3 Seconds Height, Weight, BMI Height: 5'8.00" Weight: 290lbs. 2.0oz. 131.787630ie; 41.1 BMI Method:Stated General Appearance: WD/WN, no apparent distress Cardiovascular: normal peripheral pulses, regular rate, rhythm, no edema, no gallop, no JVD, no murmur Respiratory: chest non-tender, lungs clear, normal breath sounds, no respiratory distress, no accessory muscle use Knees: bilateral knee non-tender, bilateral knee normal inspection; right knee normal range of motion; bilateral knee no evidence of injury; left knee pain Neurologic/Tendon: normal sensation, normal motor functions, normal tendon functions, responds to pain Neurologic/Psychiatric: alert, normal mood/affect, oriented x 3 Skin: normal color, warm/dry Progress/Results/Core Measures Results/Orders My Orders Orders - VITALIY MCGOVERN Knee, Left, 3 Views (01/20/18 12:10) Oxycodone/Apap 5/325mg Tablet (Percocet (01/20/18 12:30) Ondansetron Oral Dissolve Tab (Zofran (01/20/18 13:15) Mri Lt Lower Ext Joint W/O (01/20/18 13:40) Prednisone Tablet (Deltasone Tablet) (01/20/18 16:00) Medications Given in ED Vital Signs/I&O 01/20/18 01/20/18 11:58 16:12 Temp 99.6 99.0 Pulse 118 87 Resp 18 20 B/P (MAP) 188/113 (138) 149/99 Pulse Ox 97 99 O2 Delivery Room Air Room Air Blood Pressure Mean: 138 Progress Progress Note : Time: 13:35 Progress Note I have discussed the case with Dr. Jarvis and she recommends MRI of joint and giving a one time dose of prednisone 60mg to help with any possible inflammation. Patient agrees with plan and was sent over for MRI of knee. 1540: I have informed the patient of imaging reports and she agrees with plans for discharge and follow up with ortho and [facility] for further evaluation. I have placed her in a knee immobilizer and instructed crutch use for comfort. Return precautions were given. Diagnostic Imaging Diagonstic Imaging: Xray, MRI Plain Films/CT/US/NM/MRI: knee Comments NAME: JOSHUA DE PAZSA [facility] REC#: [id number] PT STATUS: REG ER : 1995 PHYSICIAN: VITALIY MCGOVERN ADMIT DATE: 01/20/18/ER Draft Date of Exam:01/20/18 KNEE, LEFT, 3 VIEWS INDICATION: Fall with left knee injury and pain. TIME OF EXAMINATION: 01:03 p.m. TECHNIQUE: Three views of the left knee were obtained. FINDINGS: Alignment is normal. The joint spaces are well maintained. The articular surfaces are smooth. No fracture, dislocation or effusion is seen. IMPRESSION: No acute abnormality is detected. Dictated on workstation # [id number] Dict: 01/20/18 1315 Trans: 01/20/18 1319 [facility] [id number] Interpreted by: JUANA VILLALBA MD Electronically signed by: NAME: RAHUL DE PAZYSSA [facility] REC#: [id number] PHYSICIAN: VITALIY MCGOVERN CC: VITALIY MCGOVERN; JUANA VILLALBA MD Page 1 of 1 RADIOLOGY REPORT VIA [facility]. [place], [place] CC: VITALIY MCGOVERN; JUANA VILLALBA MD Page 1 of 1 RADIOLOGY REPORT NAME: HUDSON DE PAZ [facility] REC#: [id number] PT STATUS: DEP ER : 1995 PHYSICIAN: VITALIY MCGOVERN ADMIT DATE: 01/20/18/ER Signed Date of Exam: 01/20/18 MRI LT LOWER EXT JOINT W/O PROCEDURE: MRI left joint lower extremity without contrast. TECHNIQUE: Multiplanar, multisequence non contrast-enhanced MRI of the left lower extremity was accomplished. INDICATION: Fall with left knee injury and pain. FINDINGS: Overall quality of the study is limited due to patient body habitus. The marrow signal intensity is unremarkable. No bone bruise is seen. There are benign fibrous cortical defects involving the distal femur medially as well as the proximal tibia and proximal fibula. The ACL and PCL are intact. The medial and lateral collateral ligament complexes are intact. Both the medial and lateral menisci appear intact. No tear or displaced meniscal fragment is seen. Extensor mechanism is unremarkable. The articular cartilage appears to be intact. No osteochondral defect is detected. IMPRESSION: Unremarkable MRI of the left knee. No ligamentous or meniscal tear is identified. Dictated by: Dictated on workstation # [id number] Dict: 01/20/18 1528 Trans: 01/20/18 1833 Interpreted by: JUANA VILLALBA MD Electronically signed by: JUANA VILLALBA MD 01/20/181832 Reviewed: Reviewed by Me Departure Impression Primary Impression: Knee pain Disposition: 01 HOME, SELF-CARE Condition: Stable/Unchanged Departure-Patient Inst. Decision time for Depature: 15:48 Referrals: KATE JARVIS MD (PCP/Family) Primary Care Physician Patient Instructions: Knee Sprain (DC) Add. Discharge Instructions: Medication as directed. Keep your appointment was scheduled with [facility] on the of this month. Rest ice elevation and wearing the knee brace at all times. Return back to the emergency room for any worsening pain or concerns as needed. All discharge instructions reviewed with patient and/or family. Voiced understanding. Scripts Oxycodone HCl/Acetaminophen (Percocet 5-325 mg Tablet) 1 Each Tablet 1 EACH PO Q6H PRN for PAIN-MODERATE MDD 6, #10 TAB Prov: VITALIY MCGOVERN 01/20/18 VITALIY MCGOVERN Jan 20, 2018 12:44
[2018-01-20] MEDS ORDERED: ONDANSETRON 4 MG (ZOFRAN) ORAL DISSOLVE TAB PO ONE (13:15)
--- NOTE | 2018-01-20 13:19 | Diagnostic Imaging Report ---
INDICATION: Fall with left knee injury and pain. TIME OF EXAMINATION: 01:03 p.m. TECHNIQUE: Three views of the left knee were obtained. FINDINGS: Alignment is normal. The joint spaces are well maintained. The articular surfaces are smooth. No fracture, dislocation or effusion is seen. IMPRESSION: No acute abnormality is detected. Dictated by: Dictated on workstation # [id number]
--- NOTE | 2018-01-20 15:34 | Diagnostic Imaging Report ---
PROCEDURE: MRI left joint lower extremity without contrast. TECHNIQUE: Multiplanar, multisequence non contrast-enhanced MRI of the left lower extremity was accomplished. INDICATION: Fall with left knee injury and pain. FINDINGS: Overall quality of the study is limited due to patient body habitus. The marrow signal intensity is unremarkable. No bone bruise is seen. There are benign fibrous cortical defects involving the distal femur medially as well as the proximal tibia and proximal fibula. The ACL and PCL are intact. The medial and lateral collateral ligament complexes are intact. Both the medial and lateral menisci appear intact. No tear or displaced meniscal fragment is seen. Extensor mechanism is unremarkable. The articular cartilage appears to be intact. No osteochondral defect is detected. IMPRESSION: Unremarkable MRI of the left knee. No ligamentous or meniscal tear is identified. Dictated by: Dictated on workstation # [id number]
[2018-01-20] MEDS ORDERED: OXYC1TAB87 PO (15:50)
[2018-01-20] MEDS ORDERED: predniSONE 20 MG TAB PO ONE (16:00)
[2018-01-20 16:12] VITALS: BP 149/99
== END 2018-01-20 16:12 | disposition home or self-care (01) ==
LOC: EDUNIT# 11:10 → ER 11:11
DX: M25.562 Pain in left knee (principal); M06.9 Rheumatoid arthritis, unspecified; M32.9 Systemic lupus erythematosus, unspecified; G47.30 Sleep apnea, unspecified; I10 Essential (primary) hypertension; G43.909 Migraine, unspecified, not intractable, without status migrainosus; K21.9 Gastro-esophageal reflux disease without esophagitis; F32.9 Major depressive disorder, single episode, unspecified; D64.9 Anemia, unspecified; Z87.440 Personal history of urinary (tract) infections; Z92.21 Personal history of antineoplastic chemotherapy; Z79.51 Long term (current) use of inhaled steroids; Z82.49 Family history of ischemic heart disease and other diseases of the circulatory system; Z79.82 Long term (current) use of aspirin; Z79.52 Long term (current) use of systemic steroids; W18.30XA Fall on same level, unspecified, initial encounter; X50.1XXA Overexertion from prolonged static or awkward postures, initial encounter
CPT/HCPCS: 73562; 73721

== ENCOUNTER → 2018-04-20 | Outpatient (CLI) | payer OTHER ==
[~2018-04-20] MED LIST changes: +OXYC1TAB87 PO
--- NOTE | 2018-04-20 12:46 | Diagnostic Imaging Report ---
INDICATION: Right-sided chest pain. TECHNIQUE: Two-view chest at 12:24 p.m. CORRELATION STUDY: 11/27/2017. FINDINGS: Right IJ Taaxhc-T-Ougc catheter unchanged with tip at the cavoatrial junction. Mild severity cardiac enlargement without evidence of overt failure. Suggestion of minimal perihilar and infrahilar areas of likely atelectasis. No focal lobar infiltrate. No effusion. Visualized osseous structures are unremarkable. IMPRESSION: 1. Stable chest demonstrating no significant interval change or acute findings. Dictated by: Dictated on workstation # [id number]
== END ==
LOC: RAD 11:47
PROVIDERS: ATTEND Nurse Practitioner Family
DX: R07.89 Other chest pain (principal)
CPT/HCPCS: 71046

== ENCOUNTER 2018-05-10 17:27 | Emergency (ER) | payer OTHER ==
[~2018-05-10] VITALS: Ht 172.7 cm; Wt 131.5 kg
--- OUTSIDE RECORDS SUMMARY | 2018-05-10 17:32 | XMS REPORT | Clinical Summary ---
Author Author [facility] Organization [facility] Address Unknown Phone Unavailable Care Team Providers Care Clerk Supervisor Name Role Phone Savannah Mcnair MD Unavailable Ninfa Durham RN Unavailable Sol Lilly RN Unavailable Unavailable Kristina Mathews DO [id number] Kim Govea MD Unavailable Nancy Jarvis MD [...] in the Health Information Management department at [phone] for further assistance in locating additional records.[facility] Allergies Comments Active Allergy Reactions Severity Noted Date Severe migraines Tacrolimus HEADACHE Low 07/22/2016 Medications End Date Status Medication Sig Dispensed Refills Start Date Active ondansetron (ZOFRAN ODT) Take 4 mg by 0 4 mg rapid dissolve mouth every 8 tablet hours as needed for Nausea. Active Carboxymethylcellulose-Gl Apply 1 Drop 0 ycern 0.5-0.9 % drop to both eyes twice daily. Active aspirin EC 81 mg tablet Take 1 Tab by 90 Tab 3 mouth daily. 6 Hold for now, resume 06/03/15 Active albuterol (VENTOLIN HFA, Inhale 1-2 0 PROAIR HFA) 90 Puffs by mcg/actuation inhaler mouth into the lungs every 4-6 hours as needed for Wheezing. Active acetaminophen SR(+) Take 650 mg 0 (TYLENOL) 650 mg tablet by mouth every 6 hours as needed for Pain. Active CALCIUM CARBONATE Take 2 Each 0 (CALCIUM 500 PO) by mouth daily. Active hydroxychloroquine Take 200 mg 0 (PLAQUENIL) 200 mg tablet by mouth twice daily. Take with food. Active carvedilol (COREG) 12.5 Take 1 Tab by 90 Tab 1 mg tablet mouth twice 6 daily. Take with food. Active potassium chloride SR Take 20 mEq 0 (K-DUR) 20 mEq tablet by mouth daily. Take with a meal and a full glass of water. Active isometh/dichloral/acetam( Take one at 18 Cap 1 +) (MIDRIN) 325/65/100 mg the start of 7 capsuleIndications: a headache, Migraine if symptoms not resolved may take another. No more than twice in one day. Indications: MIGRAINE Active ALPRAZolam (XANAX) 0.25 Take 0.25 mg 0 mg tablet by mouth three times daily as needed for Anxiety. Active esomeprazole DR(+) Take 40 mg by 0 (NEXIUM) 40 mg capsule mouth every morning. Take on an empty stomach at least 1 hour before or 2 hours after food. Active MELATONIN PO Take 2 mg by 0 mouth at bedtime daily. Pt uses drops Active mycophenolate mofetil Take 2 0 (CELLCEPT) 500 mg tablet tablets by 7 mouth twice daily. Take on an empty stomach. Resume taking. Active fluticasone (FLONASE) 50 Apply 1 spray 16 g 3 mcg/actuation nasal spray to each 7 nostril as directed daily. Shake bottle gently before using. Active ergocalciferol (VITAMIN Take 12 12 capsule 1 D-2) 50,000 unit capsule capsules by 7 mouth every 7 days. Active pregabalin (LYRICA) 75 mg Take 1 270 capsule 1 capsule capsule by 8 mouth three times daily. Active prednisone (DELTASONE) Take 2 270 tablet 1 2.5 mg tablet tablets by 8 mouth daily with breakfast. 7.5 mg daily x 1 month then 5 mg daily until return visit Active cycloSPORINE (GENGRAF) 25 Take 3 270 capsule 2 mg capsule capsules by 8 mouth daily. Take 2 capsules (50mg) every AM and 1 capsule (25mg) every PM Active lisinopril (PRINIVIL, Take 1 tablet 90 tablet 2 ZESTRIL) 30 mg tablet by mouth [address]. [address] (CYMBALTA) TAKE ONE 30 capsule 1 60 mg capsule CAPSULE BY 8 MOUTH EVERY OTHER DAY FOR 1 WEEK, IF TOLERATED INCREASE TO 1 CAPSULE DAILY Active amitriptyline-gabapentin- Apply twice a 100 g 0 emu oil (bulk) in cream day as 8 base no.135 (bulk) needed. 4/4/10% topical cream Active promethazine (PHENERGAN) Take one 30 tablet 1 12.5 mg tablet tablet by 8 mouth every 8 hours as needed for Nausea or Vomiting. Active Miscellaneous Medical 4 wheeled 1 Device 0 Supply [facility] walker 8 Active Leg Brace (KNEE SUPPORT Knee brace - 1 each 0 BRACE) [facility] Left. 8 Indication for patellofemora l syndrome Active eszopiclone (LUNESTA) 1 TAKE 1 TABLET 90 tablet 0 mg tablet BY MOUTH 8 EVERY NIGHT AT BEDTIME NEEDED FOR SLEEP Active Problems Problem Noted Date CKD (chronic kidney disease) stage 2, GFR 60-89 ml/min 05/28/2017 Morbid obesity 03/13/2017 Essential hypertension 03/06/2017 SLE (systemic lupus erythematosus) 03/05/2017 Nausea and vomiting 08/27/2016 Fever 08/27/2016 GERD (gastroesophageal reflux disease) 08/27/2016 Migraine without aura and without status migrainosus, not intractable 2016 ASHELY (acute kidney injury) 12/28/2015 Anemia 12/28/2015 IIH (idiopathic intracranial hypertension) 10/16/2015 Stage IV lupus nephritis (WHO) 02/10/2015 Sepsis 12/23/2014 Nephrotic range proteinuria 12/10/2014 Pyuria, sterile 12/10/2014 Hematuria 12/10/2014 HTN (hypertension) 12/10/2014 Lupus (systemic lupus erythematosus) 09/14/2014 Last Assessment & Plan: Patient with [...] anti-cardiolipin antibiody - F/U in November in [facility] Care Team Description Date Type Specialty Savannah Mcnair MD Appointment 05/01/2018 Telephone Nephrology Paradise Bradley MD Lupus erythematosus, unspecified form (Primary Dx); Lupus nephritis (HCC); Elevated creatine kinase; Elevated serum creatinine 04/30/2018 Orders Only Rheumatology Savannah Mcnair MD Lupus nephritis (HCC) 04/21/2018 Orders Only Nephrology Savannah Mcnair MD Lab Request 04/10/2018 Telephone Savannah Castañeda MD Follow-up Phone Call (Labs) 04/08/2018 Telephone NephParadise Campbell MD Thompson, Lucas, MD Patellofemoral pain syndrome of left knee (Primary Dx) 03/17/2018 Office Visit Sports Medicine Savannah Mcnair MD Follow-up Phone Call 03/09/2018 Telephone NephSavannah Graham MD Test 02/13/2018 Telephone NephSavannah Graham MD Lab Request 02/11/2018 Telephone Nephrology from Last 3 Months Immunizations Name Dates [...] Grandmother Maternal Uncle Mother Alive Social History Date Tobacco Use Types Packs/Day Years Used Never Smoker Smokeless Tobacco: Never Used Alcohol Use Drinks/Week oz/Week Comments No 0 Standard 0.0 drinks or equivalent Sex Assigned at Date Recorded Not on file Industry Job Start Date Occupation Not on file Not on file Not on file Travel End Travel History Travel Start No recent travel history available. Last Filed Vital Signs Time Taken Vital Sign Reading 03/17/2018 3:42 PM CHEMICAL RESEARCH ENGINEER Blood Pressure 163/111 03/17/2018 3:42 PM CHEMICAL RESEARCH ENGINEER Pulse 71 01/06/2018 12:59 PM CDT Temperature 36.9 C (98.4 F) 01/26/2018 10:45 AM CDT Respiratory Rate 18 03/17/2018 3:42 PM CHEMICAL RESEARCH ENGINEER Oxygen Saturation 100% - Inhaled Oxygen - Concentration 03/17/2018 3:42 PM CHEMICAL RESEARCH ENGINEER Weight 131.5 kg (290 lb) 03/17/2018 3:42 PM CHEMICAL RESEARCH ENGINEER Height 172.7 cm (5' 8") 03/17/2018 3:42 PM CHEMICAL RESEARCH ENGINEER Body Mass Index 44.09 Plan of Treatment Health Maintenance Due Date Last Done Comments PHYSICAL (COMPREHENSIVE) 11/07/2002 EXAM HPV VACCINES (1 - Female 11/07/2006 3-dose series) HIV SCREENING 11/07/2010 DTAP/TDAP VACCINES (1 - 11/07/2013 Tdap) CERVICAL CANCER SCREENING 11/07/2016 INFLUENZA VACCINE 12/10/2017 05/28/2017, 01/27/2015, 02/22/2009 MENINGOCOCCAL VACCINE Aged Out No longer eligible based (Aby NELSON) on patient's age to complete this topic Implants Device Identifier Shelf Expiration Date Model / Serial / Lot Implanted Type Area Manufactur er Power Port Procedures Comments Procedure Name Priority Date/Time Associated Diagnosis BASIC METABOLIC PANEL Routine 04/20/2018 Lupus nephritis (HCC) from Last 3 Months Results * BASIC METABOLIC PANEL (04/20/2018) Sodium 139 [facility] Potassium 4.1 [facility] Chloride 105 [facility] CO2 24 [facility] Blood Urea Nitrogen 15 [facility] Creatinine 1.3 (H) [facility] Glucose 70 [facility] Calcium 8.8 [facility] eGFR Non 53 (L) [facility] eGFR [facility] Anion Gap [facility] Specimen Blood - Blood Narrative Performed At Performing Organization Address City/State/Zipcode Phone Number [facility] [address] [place] [address] 10A from Last 3 Months Insurance Payer Benefit Subscriber ID Type Phone Address Plan / Group BCBS [employer] xxxxxxxxxxxx PPO OUT OF STATE Advance Directives Patient has advance care planning documents, and code status on file. For more information, please contact: [facility] [address] [place] [address] Date Inactivated Comments Code Status Date Activated 03/10/2017 8:03 PM Full Code 03/05/2017 1:48 PM Provider has discussed Code Status No, more discussion w/Patient or Family? needed 08/30/2016 8:01 PM Full Code 08/27/2016 3:33 PM Provider has discussed Code Status No, more discussion w/Patient or Family? needed 02/12/2016 3:28 PM Full Code 02/09/2016 1:51 AM Provider has discussed Code Status No, more discussion w/Patient or Family? needed 01/04/2016 8:29 PM Full Code 12/30/2015 11:37 AM Provider has discussed Code Status Yes w/Patient or Family? 12/30/2015 11:37 AM Full Code 12/28/2015 9:32 PM Provider has discussed Code Status No, more discussion w/Patient or Family? needed
--- OUTSIDE RECORDS SUMMARY | 2018-05-10 17:32 | XMS REPORT | Encounter Summary ---
Author Author [facility] Organization [facility] Address Unknown Phone Unavailable Care Team Providers Care Manager Registration Name Role Phone Savannah Mcnair MD Unavailable Ninfa Durham RN Unavailable Sol Lilly RN Unavailable Unavailable Kristina Mathews DO [id number] Kim Govae MD Unavailable Nancy Jarvis MD PCP Isaiah [...] Visit * Reason Comments Appointment Encounter Details Care Team Description Date Type Department Savannah Mcniar MD [address] [facility] [address] [place] [address] [phone] Appointment 05/01/2018 Telephone [facility] Physicians - Internal Medicine [facility] [address] [place] [id number] Social History Date Tobacco Use Types Packs/Day Years Used Never Smoker Smokeless Tobacco: Never Used Alcohol Use Drinks/Week oz/Week Comments No 0 Standard 0.0 drinks or equivalent Sex Assigned at Date Recorded Not on file Industry Job Start Date Occupation Not on file Not on file Not on file Travel End Travel History Travel Start No recent travel history available. as of this encounter Functional Status Date of Assessment Functional Status Response 03/17/2018 Does the patient have a hearing impairment: No 03/17/2018 Does the patient have a visual impairment: Yes 03/17/2018 Does the patient have impaired ambulation: No 03/17/2018 Does the patient have an activity of daily living No (ADL) impairment: 03/17/2018 Does the patient have an instrumental activity of No daily living (IADL) impairment: Date of Assessment Cognitive Status Response 03/17/2018 Does the patient have a cognitive impairment: No as of this encounter Miscellaneous Notes * Telephone Encounter - Jessica Moore RN - 05/04/2018 1:44 PM SCOUT SNIPER Per Dr. Bradley, lab orders mailed to patient, patient notified via eBuilder. T SNIPER * Telephone Encounter - Whit Suggs LPN - 05/01/2018 9:14 AM SCOUT SNIPER Spoke with pt regarding f/u appt. Pt states she is currently on her way to see Dr. Jarvis as she has been having some "weird severe back pain". When she goes to lay down/lay back she gets a "chest pressure or pain" and feels like she can't breathe. She had this last week and had muscle relaxer which helped but now its happening again. No fevers or other sxs to report. Advised will send her eBuilder message re: f/u appt for 07/01/18 @ 1:30pm, will move up sooner if any changes in labs. Pt also requests that her lab orders be mailed to her as [facility] loses them. Routed to Jessica Moore RN and Dr. Kirk TILLEY. T SNIPER in this encounter Plan of Treatment Not on fileas of this encounter Visit Diagnoses Not on filein this encounter
--- OUTSIDE RECORDS SUMMARY | 2018-05-10 17:33 | XMS REPORT | Encounter Summary ---
Author Author [facility] Organization [facility] Address Unknown Phone Unavailable Care Team Providers Care Employee Benefits Specialist Name Role Phone Savannah Mcnair MD Unavailable Ninfa Durham RN Unavailable Sol Lilly RN Unavailable Unavailable Kristina Mathews DO [id number] Kim Govea MD Unavailable Nancy Jarvis MD PCP Isaiah Sloan MD Unavailable Dean Maldonado MD Unavailable Leandro Dejesus MD Unavailable Unavailable Eliot Dia RN Unavailable Unavailable Saeed Bosch DO Unavailable Unavailable Stanton Lopez RN Unavailable Unavailable Leandro Redd DO Unavailable Naresh Bradshaw MD Unavailable Rosie Negron MD Unavailable Paradise Bradley MD Unavailable Hung Upton RN Unavailable Unavailable Reason for Visit * Reason Comments Lab Request Encounter Details Care Team Description Date Type Department Savannah Mcnair MD [address] [facility] [address] [place] [address] [phone] Lab Request 02/11/2018 Telephone [facility] Physicians - Internal Medicine [facility] Level [address] [place] [phone] Social History Date Tobacco Use Types Packs/Day [...] Status Date of Assessment Functional Status Response 01/26/2018 Does the patient have a hearing impairment: No 01/26/2018 Does the patient have a visual impairment: Yes 01/26/2018 Does the patient have impaired ambulation: Yes 01/26/2018 Does the patient have an activity of daily living No (ADL) impairment: 01/26/2018 Does the patient have an instrumental activity of No daily living (IADL) impairment: Date of Assessment Cognitive Status Response 01/26/2018 Does the patient have a cognitive impairment: No as of this encounter Miscellaneous Notes * Telephone Encounter - Nichol Horn LPN - 02/11/2018 9:20 AM CDT Nurse spoke with patient to check the status of lab work that needs to be done. Patients states that because she has a power port, she plans on calling [facility] today to hopefully set up an appointment for this Friday. Nurse requested patient to call the clinic and let us know when the labs are done. Patient verbalized understanding and had no questions or concerns, Nichol Horn LPN in this encounter Plan of Treatment Not on fileas of this encounter Visit Diagnoses Not on filein this encounter
--- OUTSIDE RECORDS SUMMARY | 2018-05-10 17:33 | XMS REPORT | Encounter Summary ---
Author Author [facility] Organization [facility] Address Unknown Phone Unavailable Care Team Providers Care Passport Support Associate Name Role Phone Savannah Mcnair MD Unavailable Ninfa Durham RN Unavailable Sol Lilly RN Unavailable Unavailable Kristina Mathews DO [id number] Kim Govea MD Unavailable Nancy Jarvis MD PCP Isaiah Sloan MD Unavailable Dean Maldonado MD Unavailable Leandro Dejesus MD Unavailable Unavailable Eliot Dia RN Unavailable Unavailable Saeed Bosch DO Unavailable Unavailable Stanton Lopez RN Unavailable Unavailable Leandro Redd DO Unavailable Naresh Bradshaw MD Unavailable Rosie Negron MD Unavailable Paradise Bradley MD Unavailable Hung Upton RN Unavailable Unavailable Reason for Visit * Reason Comments Pain Encounter Details Care Team Description Date Type Department Paradise Bradley MD [address] [place] [address] [place] [address] [place] [address] [phone] Patellofemoral pain syndrome of left knee (Primary Dx) 03/17/2018 Office Visit [facility] [address] [place] [address] Social History Date Tobacco Use Types Packs/Day [...] travel history available. as of this encounter Last Filed Vital Signs Time Taken Vital Sign Reading 03/17/2018 3:42 PM PALEONTOLOGICAL HELPER Blood Pressure 163/111 03/17/2018 3:42 PM PALEONTOLOGICAL HELPER Pulse 71 - Temperature - - Respiratory Rate - 03/17/2018 3:42 PM PALEONTOLOGICAL HELPER Oxygen Saturation 100% - Inhaled Oxygen - Concentration 03/17/2018 3:42 PM PALEONTOLOGICAL HELPER Weight 131.5 kg (290 lb) 03/17/2018 3:42 PM PALEONTOLOGICAL HELPER Height 172.7 cm (5' 8") 03/17/2018 3:42 PM PALEONTOLOGICAL HELPER Body Mass Index 44.09 in this encounter Functional Status Date of Assessment [...] cognitive impairment: No as of this encounter Progress Notes * Erich Paez MD - 03/17/2018 3:20 PM PALEONTOLOGICAL HELPER Date of Service: 03/17/2018 Subjective: Fall The accident occurred more than 1 week ago (Fall 01/18/18 causing increased pain and instability in Left knee ). The fall occurred while walking. There was no blood loss. The point of impact was the left knee. The pain is present in the left knee. The pain is at a severity of 5/10. The pain is moderate. The symptoms are aggravated by ambulation, movement and standing. Pertinent negatives include no numbness. Associated symptoms comments: Left anterior and lateral knee pain getting worse that was exacerbated by fall. . She has tried ice, NSAID and rest (Pool therapy, tramadol, comound cream, walker, percocet. ) for the symptoms. The treatment provided no relief. Amelie Quijano is a 22 y.o. female. She returns today with complete resolution of her pain after 6 weeks of physical therapy. She is excited to continue her exercises at the gym when she no longer has to go to physical therapy. Review of Systems Musculoskeletal: Negative for arthralgias. Neurological: Negative for weakness and numbness. All other systems reviewed and are negative. [...] three times daily as needed for Anxiety. zzruedifzrkrk-zariavslte-uym oil (bulk) in cream base no.135 (bulk) 4/4/10% topical cream Apply twice a day as needed. aspirin EC 81 mg tablet Take 1 [...] daily.) duloxetine DR (CYMBALTA) 60 mg capsule TAKE ONE CAPSULE BY MOUTH EVERY OTHER DAY FOR 1 WEEK, IF TOLERATED INCREASE TO 1 CAPSULE DAILY ergocalciferol (VITAMIN D-2) 50,000 unit capsule Take 12 capsules by mouth every [address](+) (NEXIUM) 40 mg capsule Take 40 mg by mouth every morning. Take on an empty stomach at least 1 hour before or 2 hours after food. eszopiclone (LUNESTA) 1 mg tablet TAKE 1 TABLET BY MOUTH EVERY NIGHT AT BEDTIME NEEDED FOR SLEEP fluticasone (FLONASE) 50 mcg/actuation nasal spray Apply [...] day. Indications: MIGRAINE Leg Brace (KNEE SUPPORT BRACE) [facility] Knee brace - Left. Indication for patellofemoral syndrome lisinopril (PRINIVIL, ZESTRIL) 30 mg tablet Take 1 tablet by mouth daily. MELATONIN PO Take 2 mg by mouth at bedtime daily. [facility] 4 wheeled walker mycophenolate mofetil (CELLCEPT) 500 mg tablet Take [...] 1 capsule by mouth three times daily. promethazine (PHENERGAN) 12.5 mg tablet Take one tablet by mouth every 8 hours as needed for Nausea or Vomiting. Vitals: 03/17/18 1542 BP: (!) 163/111 Pulse: 71 SpO2: 100% Weight: 131.5 kg (290 lb) Height: 172.7 cm (68") Body mass index is 44.09 kg/m. Physical Exam Constitutional: She is oriented to person, place, and time. She appears well- developed and well-nourished. No distress. HENT: Head: Normocephalic and atraumatic. Eyes: Conjunctivae and EOM are normal. Neck: Normal range of motion. Pulmonary/Chest: Effort normal. Musculoskeletal: Right knee: She exhibits no effusion. Left knee: She exhibits no effusion. Neurological: She is alert and oriented to person, place, and time. Skin: Skin is warm and dry. She is not diaphoretic. No erythema. Psychiatric: She has a normal mood and affect. Right Knee Exam Tenderness The patient is experiencing no tenderness. Range of Motion The patient has normal right knee ROM. Tests Hussain: Medial - negative Lateral - negative Rodriguez: Anterior - negative Drawer: Anterior - negative Posterior - negative Varus: negative Valgus: negative Patellar Apprehension: negative Other Erythema: absent Scars: absent Sensation: normal Pulse: present Swelling: none Other tests: no effusion present Left Knee Exam Tenderness The patient is experiencing no tenderness. Range of Motion The patient has normal left knee ROM. Tests Hussain: Medial - negative Lateral - negative Rodriguez: Anterior - negative Drawer: Anterior - negative Posterior - negative Varus: negative Valgus: negative Patellar Apprehension: negative Other Erythema: absent Scars: absent Sensation: normal Pulse: present Swelling: none Effusion: no effusion present Assessment and Plan: Amelie Quijano was seen today for pain. Diagnoses and all orders for this visit: Patellofemoral pain syndrome of left knee -Her pain is resolved at this time. -She completed 6 weeks total physical therapy and continues to do her home exercises. We discussed continuing these exercises into the future to work on proximal lower extremity strengthening and hip strengthening. -Activity as tolerated. -RTO PRN increased pain. -The pt understands the above assessment and plan and has no further questions. Erich Paez MD ONTOLOGICAL HELPER in this encounter Plan of Treatment Not on fileas of this encounter Visit Diagnoses Diagnosis Patellofemoral pain syndrome of left knee - Primary in this encounter
--- OUTSIDE RECORDS SUMMARY | 2018-05-10 17:33 | XMS REPORT | Encounter Summary ---
Author Author [facility] Organization [facility] Address Unknown Phone Unavailable Care Team Providers Care Laboratory Administrative Director Name Role Phone Savannah Mcnair MD Unavailable Ninfa Durham RN Unavailable Sol Lilly RN Unavailable Unavailable Kristina Mathews DO [id number] Kim Govea MD Unavailable Nancy Jarvis MD [...] Visit * Reason Comments Follow-up Phone Call Labs Encounter Details Care Team Description Date Type Department Savannah Mcnair MD [address] [place] [address] [phone] Follow-up Phone Call (Labs) 04/08/2018 Telephone [facility] Physicians - Internal Medicine Ortho and Medical Pavilion Level 4C [address] [place] [address] Social History Date Tobacco Use Types Packs/Day [...] Telephone Encounter - Whit Suggs LPN - 04/20/2018 1:03 PM MARBLE SETTER HELPER Spoke with pt, states she just did her labs today, 04/20/18. Results will be faxed to this office when finalized. LE SETTER HELPER * Telephone Encounter - Whit Suggs LPN - 04/17/2018 11:19 AM MARBLE SETTER HELPER TSO3t message sent to pt. LE SETTER HELPER * Telephone Encounter - Whit Suggs LPN - 04/13/2018 3:44 PM MARBLE SETTER HELPER Attempted to contact pt, LVM to return call. LE SETTER HELPER * Telephone Encounter - Whit Suggs LPN - 04/08/2018 2:23 PM MARBLE SETTER HELPER Attempted to contact pt regarding labs. LVM to return call. LE SETTER HELPER in this encounter Plan of Treatment Not on fileas of this encounter Visit Diagnoses Not on filein this encounter
--- OUTSIDE RECORDS SUMMARY | 2018-05-10 17:33 | XMS REPORT | Encounter Summary ---
Author Author [facility] Organization [facility] Address Unknown Phone Unavailable Care Team Providers Care Oil Well Fishing Tool Operator Name Role Phone Savannah Mcnair MD Unavailable Ninfa Durham RN Unavailable Sol Lilly RN Unavailable Unavailable Kristina Mathews DO [id number] Kim Govea MD Unavailable Nancy Jarvis MD PCP Isaiah Sloan MD Unavailable Dean Maldonado MD Unavailable Leandro Dejesus MD Unavailable Unavailable Eliot Dia RN Unavailable Unavailable Saeed Bosch DO Unavailable Unavailable Stanton Lopez RN Unavailable Unavailable Leandro Redd DO Unavailable Naresh Bradshaw MD Unavailable Rosie Negron MD Unavailable Paradise Bradley MD Unavailable Hung Upton RN Unavailable Unavailable Reason for Visit * Reason Comments Test Encounter Details Care Team Description Date Type Department Savannah Mcnair MD [address] [facility] [address] [place] [address] [phone] Test 02/13/2018 Telephone [facility] Physicians - Internal Medicine Ortho and Medical Pavilion Level 4C [address] [place] [id number] Social History Date Tobacco Use Types Packs/Day [...] encounter Miscellaneous Notes * Telephone Encounter - Mary Beth Lim RN - 03/09/2018 9:29 AM CDT LVM requesting call back. * Telephone Encounter - Mary Beth Lim RN - 02/23/2018 10:07 AM CDT LVM requesting call back. * Telephone Encounter - Mary Beth Lim RN - 02/13/2018 9:51 AM CDT Spoke to pt to inquire whether she had her BMP drawn @ [facility]. Pt stated that she has not but will. Set reminder to follow up. in this encounter Plan of Treatment Not on fileas of this encounter Visit Diagnoses Not on filein this encounter
--- OUTSIDE RECORDS SUMMARY | 2018-05-10 17:33 | XMS REPORT | Encounter Summary ---
Author Author [facility] Organization [facility] Address Unknown Phone Unavailable Care Team Providers Care Plc Technician Name Role Phone Savannah Mcnair MD Unavailable Ninfa Durham RN Unavailable Sol Lilly RN Unavailable Unavailable Kristina Mathews DO [id number] Kim Govea MD Unavailable Nancy Jarvis MD PCP Isaiah Sloan MD Unavailable Dean Maldonado MD Unavailable Leandro Dejesus MD Unavailable Unavailable Eliot Dia RN Unavailable Unavailable Saeed Bosch DO Unavailable Unavailable Stanton Lopez RN Unavailable Unavailable Leandro Redd DO Unavailable Naresh Bradshaw MD Unavailable Rosie Negron MD Unavailable Paradise Bradley MD Unavailable Hung Upton RN Unavailable Unavailable Encounter Details Care Team Description Date Type Department Paradise Bradley MD [address] [place] [address] [phone] Lupus erythematosus, unspecified form (Primary Dx); Lupus nephritis (HCC); Elevated creatine kinase; Elevated serum creatinine 04/30/[address] [facility] Physicians-Rheumatology [facility] [id number] [address] [place] [address] Social History Date Tobacco Use Types Packs/Day [...] as of this encounter Progress Notes * Jessica Moore RN - 04/30/2018 5:37 PM DISTRIBUTION SPECIALIST Per Dr. Bradley, ordered UA with protein-creatinine ratio along with CBC, C3, C4 in order to follow-up the creatinine of 1.3 and allow comparison. Notified patient via [email or web address]. RIBUTION SPECIALIST in this encounter Plan of Treatment Order Schedule Name Priority Associated Diagnoses Expected: 04/30/2018, Expires: 04/30/2019 URINALYSIS DIPSTICK Routine Lupus erythematosus, unspecified form Lupus nephritis (HCC) Elevated serum creatinine Expected: 04/30/2018, Expires: 04/30/2019 URINALYSIS, MICROSCOPIC Routine Lupus erythematosus, unspecified form Lupus nephritis (HCC) Elevated serum creatinine Expected: 04/30/2018, Expires: 04/30/2019 PROTEIN/CR RATIO,UR RAN Routine Lupus erythematosus, unspecified form Lupus nephritis (HCC) Elevated serum creatinine Expected: 04/30/2018, Expires: 04/30/2019 C3 COMPLEMENT 3 Routine Lupus erythematosus, unspecified form Lupus nephritis (HCC) Elevated serum creatinine Expected: 04/30/2018, Expires: 04/30/2019 C4 COMPLEMENT 4 Routine Lupus erythematosus, unspecified form Lupus nephritis (HCC) Elevated serum creatinine Expected: 04/30/2018, Expires: 04/30/2019 CBC AND DIFF Routine Lupus erythematosus, unspecified form Lupus nephritis (HCC) Elevated serum creatinine as of this encounter Visit Diagnoses Diagnosis Lupus erythematosus, unspecified form - Primary Lupus nephritis (HCC) Systemic lupus erythematosus Elevated creatine kinase Other nonspecific abnormal serum enzyme levels Elevated serum creatinine Other nonspecific findings on examination of blood in this encounter
--- OUTSIDE RECORDS SUMMARY | 2018-05-10 17:33 | XMS REPORT | Encounter Summary ---
Author Author [facility] Organization [facility] Address Unknown Phone Unavailable Care Team Providers Care Sociology Instructor Name Role Phone Savannah Mcnair MD Unavailable Ninfa Durham RN Unavailable Sol Lilly RN Unavailable Unavailable Kristina Mathews DO [id number] Kim Govea MD Unavailable Nancy Jarvis MD [...] Date Type Department Savannah Mcnair MD [address] [facility] [address] [place] [address] [phone] Lupus nephritis (HCC) 04/21/2018 Orders Only [facility] Physicians - Internal Medicine Ortho and Medical Pavilion Level 4C [address] [place] [address] Social History Date Tobacco Use [...] as of this encounter Progress Notes * Whit Suggs LPN - 04/21/2018 8:38 AM ROOFING SUBCONTRACTOR Pt lab results scanned into O2. Routed to Dr. Mcnair and Dr. Bradley. Will discuss results with Dr. Mcnair today. ING SUBCONTRACTOR in this encounter Plan of Treatment Not on fileas of this encounter Procedures Comments Procedure Name Priority Date/Time Associated Diagnosis BASIC METABOLIC PANEL Routine 04/20/2018 Lupus nephritis (HCC) in this encounter Results * BASIC METABOLIC PANEL (04/20/2018) Sodium 139 [facility] Potassium 4.1 [facility] Chloride 105 [facility] CO2 24 [facility] Blood Urea Nitrogen 15 [facility] Creatinine 1.3 (H) [facility] Glucose 70 [facility] Calcium 8.8 [facility] eGFR Non 53 (L) [facility] eGFR [facility] Anion Gap [facility] Specimen Blood - Blood Narrative Performed At Performing Organization Address City/State/Zipcode Phone Number [facility] [address] [place] [address] 10A in this encounter Visit Diagnoses Diagnosis Lupus nephritis (HCC) Systemic lupus erythematosus in this encounter
--- OUTSIDE RECORDS SUMMARY | 2018-05-10 17:33 | XMS REPORT | Encounter Summary ---
Author Author [facility] Organization [facility] Address Unknown Phone Unavailable Care Team Providers Care Director Heart Name Role Phone Savannah Mcnair MD Unavailable Ninfa Durham RN Unavailable Sol Lilly RN Unavailable Unavailable Kristina Mathews DO [id number] Kim Govea MD Unavailable Nancy Jarvis MD [...] Date Type Department Savannah Mcnair MD [address] [facility] [address] [place] [address] [phone] Lab Request 04/10/2018 Telephone [facility] Physicians - Internal Medicine Ortho and Medical Pavilion Level 4C [address] [place] [address] Social History Date Tobacco Use [...] Telephone Encounter - Nichol Horn LPN - 04/10/2018 12:28 PM YARN INSPECTOR Nurse called patient to check the status of lab work that needs to be done however there as no answer. Nurse left message for patient to return call, Nichol Horn LPN INSPECTOR in this encounter Plan of Treatment Not on fileas of this encounter Visit Diagnoses Not on filein this encounter
--- OUTSIDE RECORDS SUMMARY | 2018-05-10 17:33 | XMS REPORT | Encounter Summary ---
Author Author [facility] Organization [facility] Address Unknown Phone Unavailable Care Team Providers Care Oil Winterizer Name Role Phone Savannah Mcnair MD Unavailable Ninfa Durham RN Unavailable Sol Lilly RN Unavailable Unavailable Kristina Mathews DO [id number] Kim Govea MD Unavailable Nancy Jarvis MD PCP Isaiah Sloan MD Unavailable Dean Maldonado MD Unavailable Leandro Dejesus MD Unavailable Unavailable Eliot Dia RN Unavailable Unavailable Saeed Bosch DO Unavailable Unavailable Stanton Lopez RN Unavailable Unavailable Leandro Redd DO Unavailable Naresh Bradshaw MD Unavailable Rosie Negron MD Unavailable Paradise Bradley MD Unavailable Hung pUton RN Unavailable Unavailable Reason for Visit * Reason Comments Follow-up Phone Call Encounter Details Care Team Description Date Type Department Savannah Mcnair MD [address] [facility] [address] [place] [address] [phone] Follow-up Phone Call 03/09/2018 Telephone [facility] Physicians - Internal Medicine Ortho and Medical Pavilion Level 4C [address] [place] [address] Social History Date Tobacco Use [...] Telephone Encounter - Whit Suggs LPN - 03/10/2018 3:[address] Mcnair, defer to pt PCP or whoever placed the port. Spoke with pt, states Dr. Polk at [facility] had it placed. I encouraged her to contact PCP or Dr. Polk office regarding this as they will have protocol on what to order to check this. Pt v/u with no questions or concerns. * Telephone Encounter - Whit Suggs LPN - 03/09/2018 2:47 PM CDT Rec'd VM from pt states she has had a lot going on so hasn't been able to get lab work done. Requesting return call to discuss further. Returned pt call, states she has been very busy with school 2x/wk and PT 3x/wk. Pt reports she feels like her port "has flipped" and that it "Feels too deep, it just feels funny". Pt requesting imaging to see if port positioned OK. Notifying Dr. Mcnair to advise. in this encounter Plan of Treatment Not on fileas of this encounter Visit Diagnoses Not on filein this encounter
--- OUTSIDE RECORDS SUMMARY | 2018-05-10 17:38 | XMS REPORT | CCD ---
Author Author [facility] Address [address] [place] [address] Phone Care Team Providers Care Manager Discovery Name Role Phone PP Unavailable CCM Unavailable Summary Purpose Interface Exchange Insurance Providers Payer name Policy type / Coverage type Covered democrat ID Effective Begin Date Effective End Date Blue Cross [facility] Blue Cross/Blue [facility] [id number] 2015 Unknown Family history Brother Diagnosis Age At Onset Asthma Unknown defect Unknown Mother Diagnosis Age At Onset Diabetes mellitus Type 2 Unknown Hypertension Unknown Depression Unknown Hyperlipidemia Unknown Social History Social History Element Codes Description Effective Dates Marital status Unknown Single 09/30/2016 Number of children Unknown 0 10/07/[address]: 209844817 Never smoker 10/07/[address]: 354190599 Never drinks alcohol 10/07/2014 Allergies, Adverse Reactions, Alerts Substance Reaction Codes Entered Date Inactivated Date Status * NO KNOWN FOOD ALLERGIES Unknown 10/07/2014 No Inactive Date Active * NO KNOWN DRUG ALLERGIES Unknown 10/07/2014 No Inactive Date Active Past Medical History Illness Codes Condition Status Onset Date Resolved Date Cough ICD-9: 786.2 ICD-10: R05 Active 10/21/2016 Unknown Pleurodynia ICD-9: 786.50 ICD-10: R07.81 Active 04/20/2018 Unknown Other acute sinusitis ICD-9: 461.8 ICD-10: J01.80 Active 03/21/2016 Unknown Other allergic rhinitis ICD-9: 477.8 ICD-10: J30.89 Active 04/01/2016 Unknown Acute serous otitis media, right ear ICD-9: 381.01 ICD-10: H65.01 Active 01/30/2018 Unknown Cellulitis of right finger ICD-9: 681.00 ICD-10: L03.011 Active 01/30/2018 Unknown Pain in left knee ICD- 9: 719.46 ICD-10: M25.562 Active 12/30/2017 Unknown Pneumonia due to other specified infectious organisms ICD-9: 483.8 ICD-10: J16.8 Active 11/27/2017 Unknown Cellulitis of right lower limb ICD-9: 682.6 ICD-10: L03.115 Active 11/17/2017 Unknown Other mucopurulent conjunctivitis, left eye ICD-9: [...] ICD-9: 465.0 ICD-10: J06.0 Active 06/11/2015 Unknown Dysuria ICD-9: 788.1 ICD-10: R30.0 Active 07/01/2016 Unknown Paresthesia of skin ICD-9: 782.0 ICD-10: R20.2 Active 07/01/2016 Unknown Acute upper respiratory infection, unspecified ICD-9: 465.9 ICD-10: J06.9 Active 10/21/2016 Unknown Generalized anxiety disorder ICD-9: [...] Problems Condition Codes Effective Dates Condition Status Cough ICD-9: 786.2 ICD-10: R05 10/21/2016 Active Pleurodynia ICD-9: 786.50 ICD-10: R07.81 04/20/2018 Active Other acute sinusitis ICD-9: 461.8 ICD-10: J01.80 03/21/2016 Active Other allergic rhinitis ICD-9: 477.8 ICD-10: J30.89 04/01/2016 Active Acute serous otitis media, right ear ICD-9: 381.01 ICD-10: H65.01 01/30/2018 Active Cellulitis of right finger ICD-9: 681.00 ICD-10: L03.011 01/30/2018 Active Pain in left knee ICD- 9: 719.46 ICD-10: M25.562 12/30/2017 Active Pneumonia due to other specified infectious organisms ICD-9: 483.8 ICD-10: J16.8 11/27/2017 Active Cellulitis of right lower limb ICD-9: 682.6 ICD-10: L03.115 11/17/2017 Active Other mucopurulent conjunctivitis, left eye ICD-9: [...] laryngopharyngitis ICD-9: 465.0 ICD-10: J06.0 06/11/2015 Active Dysuria ICD-9: 788.1 ICD-10: R30.0 07/01/2016 Active Paresthesia of skin ICD-9: 782.0 ICD-10: R20.2 07/01/2016 Active Acute upper respiratory infection, unspecified ICD-9: 465.9 ICD-10: J06.9 10/21/2016 Active Generalized anxiety disorder ICD-9: 300.00 [...] Start Date Stop Date Status Fill Instructions cyclobenzaprine 5 mg tablet RxNorm: 564739 1-2 Tablet(s) PO TID as needed muscle spasms 04/20/2018 04/24/2018 Active prednisone 10 mg tablet RxNorm: 838828 Tablet(s) PO 03/25/2018 No Stop Date Active 60 ,60,40,40,20,20,10,10 amoxicillin 500 mg capsule RxNorm: 050668 1 Capsule(s) PO TID 03/25/2018 04/03/2018 Inactive ceftriaxone 500 mg solution for injection RxNorm: 2005611 Inj 03/25/2018 03/25/2018 Inactive Kenalog 40 mg/mL suspension for injection RxNorm: 2986489 Milliliter(s) Inj 03/25/2018 03/25/2018 Inactive Lyrica 100 mg capsule RxNorm: 046765 1 Capsule(s) PO TID and daily PRN 02/10/2018 04/25/2018 Active doxycycline hyclate 100 mg capsule RxNorm: 7917528 1 Capsule(s) PO BID 01/30/2018 02/08/2018 Inactive ceftriaxone 500 mg solution for injection RxNorm: 7314008 2 Milliliter(s) Inj 01/30/2018 01/30/2018 Inactive Lyrica 50 mg capsule RxNorm: 520313 1 Capsule(s) PO TID 201701/29/2018 Inactive Voltaren 1 % topical gel RxNorm: 579368 1 Application TOP TID as needed 12/30/2017 No Stop Date Active tramadol 50 mg tablet RxNorm: 225289 1 Tablet(s) PO BID as needed for pain 12/30/2017 01/03/2018 Inactive Nexium 40 mg capsule,delayed release RxNorm: 905362 TAKE ONE CAPSULE BY MOUTH ONCE DAILY DIRECTED FOR STOMACH 12/09/2017 03/08/2018 Inactive prednisone 10 mg tablet RxNorm: 578970 Tablet(s) PO UD 2017 No Stop Date Active 60,60,50,50,40,40,30,30,20,20,10,10,5 every other day x 2 doses albuterol sulfate 2.5 mg/3 mL (0.083 %) solution for nebulization RxNorm: 176320 3 Milliliter(s) INH UD 11/27/2017 No Stop Date Active cefdinir 300 mg capsule RxNorm: 087367 1 Capsule(s) PO BID 12/06/2017 Inactive ceftriaxone 500 mg solution for injection RxNorm: 4234804 1 Milliliter(s) Inj 11/27/2017 11/27/2017 Inactive Kenalog 40 mg/mL suspension for injection RxNorm: 8307193 1 Milliliter(s) Inj 11/27/2017 11/27/2017 Inactive Zithromax Z-John 250 mg tablet RxNorm: 633551 1 Tablet(s) PO UD 11/27/2017 02/09/2018 Inactive ceftriaxone 500 mg solution for injection RxNorm: 5446665 2 Inj 11/17/2017 11/17/2017 Inactive doxycycline hyclate 100 mg capsule RxNorm: 8660511 1 Capsule(s) PO BID 11/17/2017 11/26/2017 Inactive Flonase Allergy Relief 50 mcg/actuation nasal spray, suspension RxNorm: 9685059 1 [place] NASAL BID as needed 11/04/2017 No Stop Date Active ciprofloxacin 0.3 % eye drops RxNorm: 412728 2 Drop(s) ophthalmic (eye) Q2H while awake x 2 days, then Q4H x 5 days 11/04/2017 No Stop Date Active Lyrica 100 mg capsule RxNorm: 241909 1 Capsule(s) PO TID and daily PRN 10/27/2017 01/23/2018 Inactive Keflex 500 mg capsule RxNorm: 010902 1 Capsule(s) PO TID 201710/09/2017 Inactive Keflex 500 mg capsule RxNorm: 002271 1 Capsule(s) PO TID 201710/02/2017 Inactive ceftriaxone 500 mg solution for injection RxNorm: 3532195 Inj 09/22/2017 09/22/2017 Inactive prednisone 10 mg tablet RxNorm: 805168 Tablet(s) PO 09/15/2017 No Stop Date Active 6, 6,5,5,4,4,3,3,2,2,1,1 then back to 5mg daily Kenalog 40 mg/mL suspension for injection RxNorm: 2955357 1.5 Milliliter(s) Inj 09/15/2017 09/15/2017 Inactive Lyrica 100 mg capsule RxNorm: 556346 1 Capsule(s) PO TID 201710/26/2017 Inactive Lyrica 100 mg capsule RxNorm: 700093 1 Capsule(s) PO TID 201709/21/2017 Inactive Lunesta 1 mg tablet RxNorm: 752777 1 Tablet(s) PO QHS 201706/14/2017 Inactive Lunesta 1 mg tablet RxNorm: 934719 1 Tablet(s) PO QHS 201705/15/2017 Inactive Zithromax Z-John 250 mg tablet RxNorm: 692520 1 Tablet(s) PO UD 04/23/2017 04/27/2017 Inactive Lyrica 100 mg capsule RxNorm: 201277 1 Capsule(s) PO TID 201606/23/2017 Inactive prednisone 20 mg tablet RxNorm: 628106 Tablet(s) PO 60mg x 3 days, then 40mg x 3 days, then 25mg x 3 days, then back to 13mg daily 02/25/2017 No Stop Date Active Levaquin 250 mg tablet RxNorm: 095796 1 Tablet(s) PO daily 03/01/2017 Inactive amoxicillin 500 mg capsule RxNorm: 972727 1 Capsule(s) PO TID 02/20/2017 02/20/2017 Inactive Kenalog 40 mg/mL suspension for injection RxNorm: 4635355 Milliliter(s) Inj 02/20/2017 02/20/2017 Inactive Augmentin 500 mg-125 mg tablet RxNorm: 827228 1 Tablet(s) PO TID 02/20/2017 02/20/2017 Inactive Xanax 0.25 mg tablet RxNorm: 218836 1 Tablet(s) PO TID as needed anxiety 02/05/2017 No Stop Date Active prednisone 5 mg tablet RxNorm: 213153 1 Tablet(s) PO daily to take with the 20mg pill to equal 25mg daily x 2 weeks. 02/04/2017 No Stop Date Active prednisone 20 mg tablet RxNorm: 650588 1 Tablet(s) PO daily to take with the 5mg to equal 25mg daily x 2 weeks. 02/04/2017 No Stop Date Active Kenalog 40 mg/mL suspension for injection RxNorm: 2745937 Milliliter(s) Inj 01/28/2017 01/28/2017 Inactive ceftriaxone 500 mg solution for injection RxNorm: 0436397 Inj 01/28/2017 01/28/2017 Inactive prednisone 20 mg tablet RxNorm: 943412 Tablet(s) PO 60mg x 3 days, then 40mg x 3 days 01/28/2017 02/24/2017 Inactive ceftriaxone 500 mg solution for injection RxNorm: 1448980 Inj 12/13/2016 12/13/2016 Inactive Kenalog 40 mg/mL suspension for injection RxNorm: 0830962 Milliliter(s) Inj 12/13/2016 12/13/2016 Inactive prednisone 20 mg tablet RxNorm: 398068 Tablet(s) PO 60mg x 3 days, then 40mg x 3 days 12/13/2016 01/27/2017 Inactive Zithromax Z-John 250 mg tablet RxNorm: 186937 1 Tablet(s) PO UD 10/21/2016 10/25/2016 Inactive fluoxetine 10 mg tablet RxNorm: 782715 1 Tablet(s) PO BID 09/3008/27/2017 Inactive Xanax 0.25 mg tablet RxNorm: 651641 1 Tablet(s) PO TID as needed anxiety 09/30/2016 02/04/2017 Inactive prednisone 20 mg tablet RxNorm: 317545 Tablet(s) PO 60mg x 1 week, then 40mg x 1 week, then back to 20mg 09/17/2016 No Stop Date Active Kenalog 40 mg/mL suspension for injection RxNorm: 9399082 Milliliter(s) Inj 09/17/2016 09/17/2016 Inactive amoxicillin 500 mg capsule RxNorm: 057791 1 Capsule(s) PO TID 07/15/2016 07/24/2016 Inactive Zithromax Z-John 250 mg tablet RxNorm: 117278 1 Tablet(s) PO UD 07/04/2016 10/20/2016 Inactive promethazine 25 mg/mL injection solution RxNorm: 376239 Milliliter(s) Inj 07/01/2016 07/01/2016 Inactive promethazine 25 mg tablet RxNorm: 682179 1 Tablet(s) PO TID as needed 07/01/2016 07/10/2016 Inactive Flonase Allergy Relief 50 mcg/actuation nasal spray, suspension RxNorm: 5613362 1 [place] NASAL BID 06/05/2016 No Stop Date Active Zithromax Z-John 250 mg tablet RxNorm: 195019 Tablet(s) PO UD 07/03/2016 Inactive amoxicillin 500 mg capsule RxNorm: 425086 1 Capsule(s) PO TID 03/22/2016 04/04/2016 Inactive Kenalog 40 mg/mL suspension for injection RxNorm: 2940283 2 Milliliter(s) Inj 03/22/2016 03/22/2016 Inactive Diflucan 150 mg tablet RxNorm: 521558 1 Tablet(s) PO daily 03/09/2016 Inactive Diflucan 150 mg tablet RxNorm: 201721 1 Tablet(s) PO daily 03/04/2016 Inactive Keflex 500 mg capsule RxNorm: 534738 1 Capsule(s) PO TID 201502/04/2016 Inactive Keflex 500 mg capsule RxNorm: 826548 1 Capsule(s) PO TID 201512/17/2015 Inactive Augmentin 500 mg-125 mg tablet RxNorm: 157686 1 Tablet(s) PO TID 11/09/2015 11/18/2015 Inactive Anusol-HC 25 mg rectal suppository RxNorm: 1220638 1 Suppository RTL daily as needed pain 08/11/2015 No Stop Date Active Miralax 17 gram/dose oral powder RxNorm: 106207 1 taper PO 05/201512/08/2015 Inactive Ciprodex 0.3 %-0.1 % ear drops,suspension RxNorm: 818220 2 Drop(s) OTIC BID 07/31/2015 08/06/2015 Inactive amoxicillin 500 mg capsule RxNorm: 867742 1 Capsule(s) PO TID 07/31/2015 08/09/2015 Inactive Augmentin 500 mg-125 mg tablet RxNorm: 871779 1 Tablet(s) PO TID 07/07/2015 07/16/2015 Inactive Augmentin 500 mg-125 mg tablet RxNorm: 093186 1 Tablet(s) PO TID 07/07/2015 07/06/2015 Inactive Zithromax Z-John 250 mg tablet RxNorm: 816601 Tablet(s) PO UD 08/27/2015 Inactive [place] 20 mg/gram/actuation (2 %) topical soln in metered -dose pump RxNorm: 5992039 2 Application TOP BID 01/20/201502/18 Inactive acetazolamide 250 mg tablet RxNorm: 718477 1 Tablet(s) PO BID 01/20/2015 02/18/2015 Inactive [place] 20 mg/gram/actuation (2 %) topical soln in metered -dose pump RxNorm: 5975837 2 Application TOP BID 01/20/201501/19 Inactive cefuroxime axetil 500 mg tablet RxNorm: 551078 1 Tablet(s) PO BID 12/23/2014 12/22/2014 Inactive cefuroxime axetil 500 mg tablet RxNorm: 112916 1 Tablet(s) PO BID 12/23/2014 01/01/2015 Inactive trazodone 50 mg tablet RxNorm: 895546 1-2 Tablet(s) PO QHS 11/05/2014 Inactive mycophenolate mofetil 500 mg tablet RxNorm: 968045 2 Tablet(s) PO BID No Start Date Active Vitamin D2 50,000 unit capsule RxNorm: 640280 1 Capsule(s) PO QW No Start Date Active sucralfate 1 gram tablet RxNorm: 788917 1 Gram(s) PO QID No Start Date Active ferrous fumarate 325 mg (106 mg iron) tablet RxNorm: 364336 1 Tablet(s) PO daily No Start Date Active aspirin, buffered 81 mg tablet,delayed release RxNorm: 345922 1 Tablet(s) PO daily No Start Date Active potassium chloride ER 20 mEq tablet,extended release RxNorm: 264480 1 Tablet(s) PO BID No Start Date Active Calcium 500 + D (D3) oral RxNorm: 006745 oral No Start Date Active tramadol 50 mg tablet RxNorm: 793738 1 Tablet(s) PO BID as needed No Start Date Active prednisone 10 mg tablet RxNorm: 800242 1 Tablet(s) PO daily No Start Date Active hydroxychloroquine 200 mg tablet RxNorm: 345852 1 Tablet(s) PO BID No Start Date Active tacrolimus 1 mg capsule RxNorm: 880392 1 Capsule(s) PO daily No Start Date 06/23/2016 Inactive amitriptyline 25 mg tablet RxNorm: 969441 1 Tablet(s) PO daily No Start Date 06/11/2015 Inactive Lyrica 75 mg capsule RxNorm: 614485 1 Capsule(s) PO daily No Start Date 02/03/2017 Inactive celecoxib 100 mg capsule RxNorm: 866488 1 Capsule(s) PO daily No Start Date 01/19/2015 Inactive fluoxetine 10 mg tablet RxNorm: 950315 1 Tablet(s) PO daily No Start Date 09/29/2016 Inactive Lyrica 100 mg capsule RxNorm: 830970 1 Capsule(s) PO TID No Start Date 03/26/2017 Inactive Nexium 40 mg capsule,delayed release RxNorm: 028740 1 Capsule(s) PO daily Started by specialist No Start Date 12/08/2017 Inactive Medication Administered Medication Codes Instructions Start Date Status Kenalog 40 mg/mL suspension for injection RxNorm: 6597060 Millil[place] 03/25/2018 No longer Active ceftriaxone 500 mg solution for injection RxNorm: 0158798 03/25/2018 No longer Active ceftriaxone 500 mg solution for injection RxNorm: 3233456 2Milliliter 01/30/2018 No longer Active ceftriaxone 500 mg solution for injection RxNorm: 4439914 1Milliliter 11/27/2017 No longer Active Kenalog 40 mg/mL suspension for injection RxNorm: 1001854 1Milliliter 11/27/2017 No longer Active ceftriaxone 500 mg solution for injection RxNorm: 4754475 2 11/17/2017 No longer Active ceftriaxone 500 mg solution for injection RxNorm: 2724558 09/22/2017 No longer Active Kenalog 40 mg/mL suspension for injection RxNorm: 2926715 1.5Milliliter 09/15/2017 No longer Active Kenalog 40 mg/mL suspension for injection RxNorm: 1966334 Millil[place] 02/20/2017 No longer Active Kenalog 40 mg/mL suspension for injection RxNorm: 6497048 Milliliter 01/28/2017 No longer Active ceftriaxone 500 mg solution for injection RxNorm: 1090031 01/28/2017 No longer Active Kenalog 40 mg/mL suspension for injection RxNorm: 2998166 Milliliter 12/13/2016 No longer Active ceftriaxone 500 mg solution for injection RxNorm: 9523910 12/13/2016 No longer Active Kenalog 40 mg/mL suspension for injection RxNorm: 9285659 Milliliter 09/17/2016 No longer Active promethazine 25 mg/mL injection solution RxNorm: 390058 Milliliter 07/01/2016 No longer Active Kenalog 40 mg/mL suspension for injection RxNorm: 1253301 2Milliliter 03/22/2016 No longer Active Immunizations Vaccine Codes Date Status Influenza CVX: 141 03/12/2013 completed Assessments Condition Codes Effective Dates Cough ICD-10: R05 ICD-9: 786.2 04/20/2018 Pleurodynia ICD-10: R07.81 ICD-9: 786.50 04/20/2018 Other allergic rhinitis ICD-10: J30.89 ICD-9: 477.8 03/25/2018 Other acute sinusitis ICD-10: J01.80 ICD-9: 461.8 03/25/2018 Cellulitis of right finger ICD-10: L03.011 ICD-9: 681.00 01/30/2018 Acute serous otitis media, right ear ICD-10: H65.01 ICD-9: 381.01 01/30/2018 Pain in left knee ICD-10: M25.562 ICD-9: 719.46 01/20/2018 Pneumonia due to other specified infectious organisms ICD-10 : J16.8 ICD-9: 483.8 11/27/2017 Cellulitis of right lower limb ICD-10: L03.115 ICD-9: 682.6 11/19/2017 Other mucopurulent conjunctivitis, left eye ICD-10: H10.022 ICD-9: 372.03 11/04/2017 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 [...] Acute laryngopharyngitis ICD-10: J06.0 ICD-9: 465.0 02/20/2017 Dysuria ICD-10: R30.0 ICD-9: 788.1 01/28/2017 Paresthesia of skin ICD-10: R20.2 ICD-9: 782.0 01/28/2017 Acute upper respiratory infection, unspecified ICD-10: J06.9 ICD-9: 465.9 10/21/2016 Generalized anxiety disorder ICD-10: F41.1 ICD-9: [...] Visit Reason For Visit Effective Dates Notes chest pain/pressure 04/20/2018 sinus congestion 03/25/2018 arthropod bite 01/30/2018 knee pain 01/20/2018 knee pain 12/30/2017 cough 11/27/2017 skin lesion [...] Observation Code Item Item Code Result Date Metabolic Ord15 NA 139 mEq/L 04/20/2018 Metabolic Ord15 K 4.1 mEq/L 04/20/2018 Metabolic Ord15 CL 105 mEq/L 04/20/2018 Metabolic Ord15 CO2 24.0 mEq/L 04/20/2018 Metabolic Ord15 GLUCOSE 70 mg/dL 04/20/2018 Metabolic Ord15 BUN 15 mg/dL 04/20/2018 Metabolic Ord15 Creat 1.3 mg/dL 04/20/2018 Metabolic Ord15 B/C Ratio 11.4 Ratio 04/20/2018 Metabolic Ord15 eGFR 53 ml/min/1.73m2 04/20/2018 Metabolic Ord15 Osmo 277 mOsmo 04/20/2018 Metabolic Ord15 ANION GAP 14 04/20/2018 Metabolic Ord15 CALCIUM 8.8 mg/dL 04/20/2018 Urine Culture Ucult Preliminary NO Growth Day [...] to follow 09/22/2017 Random Urine Protein/Creatinine Ratio [id number] U Prot 719.0 mg/dl 09/22/2017 Random Urine Protein/Creatinine Ratio Lgm8772 U CREAT 273.0 mg/dL 09/22/2017 Random Urine Protein/Creatinine Ratio Ntq7798 R MTP/Creat Ratio 2.63 09/22/2017 Urine Culture Ucult Complete NO Growth Day 2 09/17/2017 Urine Culture Ucult Preliminary NO Growth Day 1 09/17/2017 Comp Metabolic Cxm881 NA 136 mEq/L 09/16/2017 Comp Metabolic Uki913 K 4.3 mEq/L 09/16/2017 Comp Metabolic Sem608 CL 105 mEq/L 09/16/2017 Comp Metabolic Qsr122 CO2 23.0 mEq/L 09/16/2017 Comp Metabolic Ehi107 ANION GAP 12 09/16/2017 Comp Metabolic Bdw423 GLUCOSE 115 mg/dL 09/16/2017 Comp Metabolic Gru909 Creat 1.1 mg/dL 09/16/2017 Comp Metabolic Qrm573 eGFR 68 ml/min/1.73m2 09/16/2017 Comp Metabolic Nlw368 BUN 9 mg/dL 09/16/2017 Comp Metabolic Vuy078 B/C Ratio 8.3 Ratio 09/16/2017 Comp Metabolic Gqc581 CALCIUM 8.9 mg/dL 09/16/2017 Comp Metabolic Shv469 ALK PHOS 65 U/L 09/16/2017 Comp Metabolic Dnx058 AST(SGOT) 15 U/L 09/16/2017 Comp Metabolic Jwz263 ALT(SGPT) 14 U/L 09/16/2017 Comp Metabolic Hyy242 BILI T 0.4 mg/dL 09/16/2017 Comp Metabolic Cnp671 ALBUMIN 3.5 g/dL 09/16/2017 Comp Metabolic Mrc698 TPRO 6.0 g/dL 09/16/2017 Comp Metabolic Abx001 GLOB 2.5 g/dL 09/16/2017 Comp Metabolic Lre376 A/G Ratio 1.4 Ratio 09/16/2017 Comp Metabolic Stg849 Osmo 272 mOsmo 09/16/2017 Random Urine Protein/Creatinine Ratio Ayi7522 U Prot 242.0 mg/dl 09/16/2017 Random Urine Protein/Creatinine Ratio Jqj2417 U CREAT 79.0 mg/dL 09/16/2017 Random Urine Protein/Creatinine Ratio Kqi0964 R MTP/Creat Ratio 3.06 09/16/2017 Urinalysis Ord28 [...] Baso ABS# 0.0 K/ul 09/15/2017 Comp Metabolic Xso252 NA 142 mEq/L 04/23/2017 Comp Metabolic Sus132 K 3.6 mEq/L 04/23/2017 Comp Metabolic Isy370 CL 108 mEq/L 04/23/2017 Comp Metabolic Aky609 CO2 23.0 mEq/L 04/23/2017 Comp Metabolic Lvf611 ANION GAP 15 04/23/2017 Comp Metabolic Qjm721 GLUCOSE 93 mg/dL 04/23/2017 Comp Metabolic Dzx785 Creat 0.9 mg/dL 04/23/2017 Comp Metabolic Nlv471 eGFR 82 ml/min/1.73m2 04/23/2017 Comp Metabolic Cru560 BUN 10 mg/dL 04/23/2017 Comp Metabolic Tpe989 B/C Ratio 10.9 Ratio 04/23/2017 Comp Metabolic Gwl584 CALCIUM 8.5 mg/dL 04/23/2017 Comp Metabolic Wca799 ALK PHOS 51 U/L 04/23/2017 Comp Metabolic Qas126 AST(SGOT) 17 U/L 04/23/2017 Comp Metabolic Xcx111 ALT(SGPT) 15 U/L 04/23/2017 Comp Metabolic Ifb234 BILI T 0.2 mg/dL 04/23/2017 Comp Metabolic Vqg488 ALBUMIN 3.3 g/dL 04/23/2017 Comp Metabolic Xvc506 TPRO 5.7 g/dL 04/23/2017 Comp Metabolic Yqu330 GLOB 2.4 g/dL 04/23/2017 Comp Metabolic Yhn962 A/G Ratio 1.4 Ratio 04/23/2017 Comp Metabolic Ozn227 Osmo 282 mOsmo 04/23/2017 Cbc With Differential [...] 78.9 fl 04/23/2017 Cbc With Differential Ord2 Payne% 9.7 % 04/23/2017 Cbc With Differential Ord2 MCH 25.1 pg 04/23/2017 Cbc With Differential Ord2 Eos% 2.6 % 04/23/2017 Cbc With Differential Ord2 MCHC 31.7 pg 04/23/2017 Cbc With Differential Ord2 Baso% 0.3 % 04/23/2017 Cbc With Differential Ord2 PLT 247 K/ul 04/23/2017 Cbc With Differential Ord2 Neut ABS# [...] Day 2 03/31/2017 Random Urine Protein/Creatinine Ratio Bmq2792 U Prot 427.0 mg/dl 03/28/2017 Random Urine Protein/Creatinine Ratio Frz7641 U CREAT 99.0 mg/dL 03/28/2017 Random Urine Protein/Creatinine Ratio Ipz8226 R MTP/Creat Ratio 4.31 03/28/2017 Comp Metabolic Etv476 NA 141 mEq/L 02/04/2017 Comp Metabolic Euy074 K 4.7 mEq/L 02/04/2017 Comp Metabolic Anl014 CL 108 mEq/L 02/04/2017 Comp Metabolic Kfd068 CO2 25.0 mEq/L 02/04/2017 Comp Metabolic Xat984 ANION GAP 13 02/04/2017 Comp Metabolic Jdj913 GLUCOSE 119 mg/dL 02/04/2017 Comp Metabolic Gqc210 Creat 1.1 mg/dL 02/04/2017 Comp Metabolic Ioi295 eGFR 66 ml/min/1.73m2 02/04/2017 Comp Metabolic Qil942 BUN 23 mg/dL 02/04/2017 Comp Metabolic Arp980 B/C Ratio 20.7 Ratio 02/04/2017 Comp Metabolic Drq152 CALCIUM 9.3 mg/dL 02/04/2017 Comp Metabolic Aeu774 ALK PHOS 66 U/L 02/04/2017 Comp Metabolic Gid130 AST(SGOT) 11 U/L 02/04/2017 Comp Metabolic Gnr393 ALT(SGPT) 12 U/L 02/04/2017 Comp Metabolic Lkf292 BILI T 0.2 mg/dL 02/04/2017 Comp Metabolic Bql346 ALBUMIN 3.7 g/dL 02/04/2017 Comp Metabolic Znz116 TPRO 6.0 g/dL 02/04/2017 Comp Metabolic Gmg603 GLOB 2.3 g/dL 02/04/2017 Comp Metabolic Hyk496 A/G Ratio 1.6 Ratio 02/04/2017 Comp Metabolic Cjj377 Osmo 286 mOsmo 02/04/2017 Urinalysis U-Color Yellow [...] 35.2 % 02/04/2017 Cbc With Differential Ord2 Lymph% [...] Baso ABS# 0.0 K/ul 02/04/2017 Culture Urine [id number] URINE CULTURE SEE NOTES 02/03/2017 Urine Culture Ucult Complete >100,000 col/ml aerobic growth sent to ref lab 01/31/2017 Comp Metabolic Srl760 NA 135 mEq/L 01/30/2017 Comp Metabolic Ony550 K 4.8 mEq/L 01/30/2017 Comp Metabolic Han763 CL 104 mEq/L 01/30/2017 Comp Metabolic Yda034 CO2 22.0 mEq/L 01/30/2017 Comp Metabolic Zlg367 ANION GAP 14 01/30/2017 Comp Metabolic Hgx276 GLUCOSE 107 mg/dL 01/30/2017 Comp Metabolic Tbm890 Creat 1.4 mg/dL 01/30/2017 Comp Metabolic Tbc739 eGFR 51 ml/min/1.73m2 01/30/2017 Comp Metabolic Tth794 BUN 24 mg/dL 01/30/2017 Comp Metabolic Rdo842 B/C Ratio 17.3 Ratio 01/30/2017 Comp Metabolic Agm672 CALCIUM 8.7 mg/dL 01/30/2017 Comp Metabolic Kio324 ALK PHOS 54 U/L 01/30/2017 Comp Metabolic Cit128 AST(SGOT) 14 U/L 01/30/2017 Comp Metabolic Zsl393 ALT(SGPT) 15 U/L 01/30/2017 Comp Metabolic Gry060 BILI T 0.2 mg/dL 01/30/2017 Comp Metabolic Hog043 ALBUMIN 3.6 g/dL 01/30/2017 Comp Metabolic Vci794 TPRO 6.1 g/dL 01/30/2017 Comp Metabolic Yvy770 GLOB 2.5 g/dL 01/30/2017 Comp Metabolic Yhx596 A/G Ratio 1.5 Ratio 01/30/2017 Comp Metabolic Pem777 Osmo 275 mOsmo 01/30/2017 Random Urine Protein/Creatinine Ratio Kwc8524 U Prot 115.0 mg/dl 01/30/2017 Random Urine Protein/Creatinine Ratio Ngn6758 U CREAT 135.0 mg/dL 01/30/2017 Random Urine Protein/Creatinine Ratio Efu3763 R MTP/Creat Ratio 0.85 01/30/2017 Urinalysis Ord28 [...] Urinalysis Ord28 U-Yeast NEGATIVE 01/30/2017 Comp Metabolic Vjc485 NA 138 mEq/L 01/29/2017 Comp Metabolic Uew816 K 4.6 mEq/L 01/29/2017 Comp Metabolic Kzk613 CL 107 mEq/L 01/29/2017 Comp Metabolic Ryy587 CO2 21.0 mEq/L 01/29/2017 Comp Metabolic Tln278 ANION GAP 15 01/29/2017 Comp Metabolic Jbq773 GLUCOSE 91 mg/dL 01/29/2017 Comp Metabolic Pnj381 Creat 1.8 mg/dL 01/29/2017 Comp Metabolic Idk857 eGFR 38 ml/min/1.73m2 01/29/2017 Comp Metabolic Vwz206 BUN 26 mg/dL 01/29/2017 Comp Metabolic Pwb926 B/C Ratio 14.6 Ratio 01/29/2017 Comp Metabolic Ggl507 CALCIUM 8.8 mg/dL 01/29/2017 Comp Metabolic Sso478 ALK PHOS 58 U/L 01/29/2017 Comp Metabolic Ubl635 AST(SGOT) 14 U/L 01/29/2017 Comp Metabolic Cqp301 ALT(SGPT) 14 U/L 01/29/2017 Comp Metabolic Vuz064 BILI T 0.2 mg/dL 01/29/2017 Comp Metabolic Ryo792 ALBUMIN 3.4 g/dL 01/29/2017 Comp Metabolic Mpr908 TPRO 5.6 g/dL 01/29/2017 Comp Metabolic Hax206 GLOB 2.2 g/dL 01/29/2017 Comp Metabolic Wra860 A/G Ratio 1.6 Ratio 01/29/2017 Comp Metabolic Bfx138 Osmo 280 mOsmo 01/29/2017 Cbc With Differential Ord2 WBC 7.36 K/ul 01/28/2017 Cbc With Differential Ord2 RBC 4.51 M/ul 01/28/2017 Cbc With Differential Ord2 HGB 11.3 g/dl 01/28/2017 Cbc With Differential Ord2 Neut% 55.9 % 01/28/2017 Cbc With Differential Ord2 HCT 35.4 % 01/28/2017 Cbc With Differential Ord2 MCV 78.5 fl 01/28/2017 Cbc With Differential Ord2 Lymph% 33.4 % 01/28/2017 Cbc With Differential Ord2 MCH 25.1 pg 01/28/2017 Cbc With Differential Ord2 Payne% 9.6 % 01/28/2017 Cbc With Differential Ord2 MCHC 31.9 pg 01/28/2017 Cbc With Differential Ord2 Eos% 0.8 % 01/28/2017 Cbc With Differential Ord2 Baso% 0.3 % 01/28/2017 Cbc With Differential Ord2 PLT 315 K/ul 01/28/2017 Cbc With Differential Ord2 Neut ABS# 4.11 K/ul 01/28/2017 Cbc With Differential Ord2 RDW 17.6 % 01/28/2017 Cbc With Differential Ord2 Lymph ABS# 2.46 K/ul 01/28/2017 Cbc With Differential Ord2 Payne ABS# 0.7 K/ul 01/28/2017 Cbc With Differential Ord2 Eos ABS# 0.1 K/ul 01/28/2017 Cbc With Differential Ord2 Baso ABS# 0.0 K/ul 01/28/2017 Urine Culture Ucult Preliminary NO Growth Day 1 09/19/2016 Urine Culture Ucult Complete NO Growth Day 2 09/19/2016 Comp Metabolic Vzz977 NA 140 mEq/L 09/17/2016 Comp Metabolic Iji858 K 3.8 mEq/L 09/17/2016 Comp Metabolic Gtf504 CL 110 mEq/L 09/17/2016 Comp Metabolic Hdg888 CO2 20.0 mEq/L 09/17/2016 Comp Metabolic Szd790 ANION GAP 14 09/17/2016 Comp Metabolic Fng013 GLUCOSE 88 mg/dL 09/17/2016 Comp Metabolic Wiv144 Creat 1.3 mg/dL 09/17/2016 Comp Metabolic Nrx031 eGFR 54 ml/min/1.73m2 09/17/2016 Comp Metabolic Rqx206 BUN 14 mg/dL 09/17/2016 Comp Metabolic Iao555 B/C Ratio 10.6 Ratio 09/17/2016 Comp Metabolic Tmg510 CALCIUM 8.1 mg/dL 09/17/2016 Comp Metabolic Yfr325 ALK PHOS 59 U/L 09/17/2016 Comp Metabolic Zpq608 AST(SGOT) 19 U/L 09/17/2016 Comp Metabolic Qvo469 ALT(SGPT) 18 U/L 09/17/2016 Comp Metabolic Vfo883 BILI T 0.3 mg/dL 09/17/2016 Comp Metabolic Aft137 ALBUMIN 3.0 g/dL 09/17/2016 Comp Metabolic Ypd869 TPRO 5.1 g/dL 09/17/2016 Comp Metabolic Vic168 GLOB 2.1 g/dL 09/17/2016 Comp Metabolic Omf598 A/G Ratio 1.4 Ratio 09/17/2016 Comp Metabolic Kcd676 Osmo 279 mOsmo 09/17/2016 Hgb & Hct Ord65 HGB 10.3 g/dl 09/17/2016 Hgb & Hct Ord65 HCT 32.2 % 09/17/2016 C RAP A SC [id number] Strep A Negative 07/15/2016 Urine Culture Ucult [...] 54.8 % 03/22/2016 Cbc With Differential Ord2 MCV 88.3 fl 03/22/2016 Cbc With Differential Ord2 Lymph% 32.4 % 03/22/2016 Cbc With Differential Ord2 MCH 28.8 pg 03/22/2016 Cbc With Differential Ord2 Payne% 11.7 % 03/22/2016 Cbc With Differential Ord2 MCHC 32.6 pg 03/22/2016 Cbc With Differential Ord2 Eos% 0.4 % 03/22/2016 Cbc With Differential Ord2 PLT 180 [...] Baso ABS# 0.0 K/ul 03/22/2016 Comp Metabolic Ojc788 NA 131 mEq/L 03/22/2016 Comp Metabolic Qxc286 K 4.1 mEq/L 03/22/2016 Comp Metabolic Ygt350 CL 106 mEq/L 03/22/2016 Comp Metabolic Fuo667 CO2 18.0 mEq/L 03/22/2016 Comp Metabolic Czs180 ANION GAP 11 03/22/2016 Comp Metabolic Zbw545 GLUCOSE 84 mg/dL 03/22/2016 Comp Metabolic Aaf646 Creat 1.6 mg/dL 03/22/2016 Comp Metabolic See502 eGFR 44 ml/min/1.73m2 03/22/2016 Comp Metabolic Iqk772 BUN 14 mg/dL 03/22/2016 Comp Metabolic Tno793 B/C Ratio 8.9 Ratio 03/22/2016 Comp Metabolic Nwv664 CALCIUM 8.2 mg/dL 03/22/2016 Comp Metabolic Wjn146 ALK PHOS 39 U/L 03/22/2016 Comp Metabolic Caz938 AST(SGOT) 16 U/L 03/22/2016 Comp Metabolic Kdj556 ALT(SGPT) 15 U/L 03/22/2016 Comp Metabolic Trc592 BILI T 0.3 mg/dL 03/22/2016 Comp Metabolic Dzo554 ALBUMIN 2.6 g/dL 03/22/2016 Comp Metabolic Nvb902 TPRO 4.5 g/dL 03/22/2016 Comp Metabolic Xte035 GLOB 1.9 g/dL 03/22/2016 Comp Metabolic Nzm296 A/G Ratio 1.3 Ratio 03/22/2016 Comp Metabolic Qlc376 Osmo 262 mOsmo 03/22/2016 Magnesium Ord90 Mag [...] 31.8 pg 03/05/2016 Cbc With Differential Ord2 PLT 237 K/ul 03/05/2016 Cbc With Differential Ord2 Baso% 0.9 % 03/05/2016 Cbc With Differential Ord2 Neut ABS# 2.58 K/ul 03/05/2016 Cbc With Differential Ord2 RDW 16.3 % 03/05/2016 Cbc With Differential Ord2 Lymph ABS# 1.33 K/ul 03/05/2016 Cbc With Differential Ord2 Payne ABS# 0.4 K/ul 03/05/2016 Cbc With Differential Ord2 Eos ABS# 0.0 K/ul 03/05/2016 Cbc With Differential Ord2 Baso ABS# 0.0 K/ul 03/05/2016 Comp Metabolic Sko557 NA 138 mEq/L 03/05/2016 Comp Metabolic Oxt443 K 3.9 mEq/L 03/05/2016 Comp Metabolic Jai183 CL 105 mEq/L 03/05/2016 Comp Metabolic Xks773 CO2 27.0 mEq/L 03/05/2016 Comp Metabolic Vmu615 ANION GAP 10 03/05/2016 Comp Metabolic Nho193 GLUCOSE 95 mg/dL 03/05/2016 Comp Metabolic Ipg677 Creat 1.4 mg/dL 03/05/2016 Comp Metabolic Mjw874 eGFR 53 ml/min/1.73m2 03/05/2016 Comp Metabolic Wfn584 BUN 20 mg/dL 03/05/2016 Comp Metabolic Otx600 B/C Ratio 14.7 Ratio 03/05/2016 Comp Metabolic Mjx467 CALCIUM 7.9 mg/dL 03/05/2016 Comp Metabolic Owb320 ALK PHOS 43 U/L 03/05/2016 Comp Metabolic Rdy938 AST(SGOT) 14 U/L 03/05/2016 Comp Metabolic Wws994 ALT(SGPT) 15 U/L 03/05/2016 Comp Metabolic Ecp998 BILI T 0.2 mg/dL 03/05/2016 Comp Metabolic Sfm843 ALBUMIN 2.2 g/dL 03/05/2016 Comp Metabolic Yqu206 TPRO 4.0 g/dL 03/05/2016 Comp Metabolic Rqa630 GLOB 1.9 g/dL 03/05/2016 Comp Metabolic Hwp381 A/G Ratio 1.2 Ratio 03/05/2016 Comp Metabolic Omj301 Osmo 278 mOsmo 03/05/2016 Urine Culture Ucult Preliminary NO Growth Day 1 12/13/2015 Urine Culture Ucult Complete NO Growth Day 2 12/13/2015 C-Reactive Protein Qnt Crqnt CRP 2.3 mg/dl 06/13/2015 Cpk Ord61 CPK 55 U/L 06/13/2015 Comp Metabolic Ecq776 NA 137 mEq/L 06/13/2015 Comp Metabolic Ilo534 K 3.7 mEq/L 06/13/2015 Comp Metabolic Lyj507 CL 106 mEq/L 06/13/2015 Comp Metabolic Qjz867 CO2 20.0 mEq/L 06/13/2015 Comp Metabolic Xtu145 ANION GAP 15 06/13/2015 Comp Metabolic Xfc638 GLUCOSE 89 mg/dL 06/13/2015 Comp Metabolic Qoa194 Creat 0.8 mg/dL 06/13/2015 Comp Metabolic Wxt797 eGFR 94 ml/min/1.73m2 06/13/2015 Comp Metabolic Cdr877 BUN 11 mg/dL 06/13/2015 Comp Metabolic Hja908 B/C Ratio 13.3 Ratio 06/13/2015 Comp Metabolic Ove216 CALCIUM 8.3 mg/dL 06/13/2015 Comp Metabolic Uom493 ALK PHOS 64 U/L 06/13/2015 Comp Metabolic Hxy954 AST(SGOT) 15 U/L 06/13/2015 Comp Metabolic Jso837 ALT(SGPT) 15 U/L 06/13/2015 Comp Metabolic Lut406 BILI T 0.3 mg/dL 06/13/2015 Comp Metabolic Dyo618 ALBUMIN 3.0 g/dL 06/13/2015 Comp Metabolic Pxn556 TPRO 5.5 g/dL 06/13/2015 Comp Metabolic Mcf927 GLOB 2.5 g/dL 06/13/2015 Comp Metabolic Urn266 A/G Ratio 1.2 Ratio 06/13/2015 Comp Metabolic Xav787 Osmo 273 mOsmo 06/13/2015 Sed Rate Ord21 ESR 22 mm/hr 06/13/2015 Cbc With Differential Ord2 WBC 12.87 K/ul 06/13/2015 Cbc With Differential Ord2 RBC 4.70 M/ul 06/13/2015 Cbc With Differential Ord2 HGB 13.5 g/dl 06/13/2015 Cbc With Differential Ord2 Neut% 83.1 % 06/13/2015 Cbc With Differential Ord2 HCT 44.5 % 06/13/2015 Cbc With Differential Ord2 MCV [...] No recent illness 2017 Constitutional No chills 04/20/2018 Constitutional No fever 04/20/2018 Eyes No eye erythema 04/20/2018 Ears/Nose/Throat/Neck No nasal discharge 04/20/2018 Cardiovascular No chest pain/pressure 02/2018 Cardiovascular No dyspnea 04/20/2018 Respiratory No cough 04/20/2018 Musculoskeletal joint complaint 2017 Neurologic No alteration of consciousness 04/20/2018 Neurologic No mental status change 2017 Respiratory dyspnea on exertion 2017 Respiratory No dyspnea 04/20/2018 Constitutional recent illness 03/25/2018 Constitutional No chills 03/25/2018 Constitutional No diaphoresis 03/25/2018 Constitutional No fever 03/25/2018 Eyes No eye erythema 03/25/2018 Ears/Nose/Throat/Neck nasal allergies Ears/Nose/Throat/Neck nasal discharge Ears/Nose/Throat/Neck postnasal drip Ears/Nose/Throat/Neck sinus congestion Ears/Nose/Throat/Neck No sore throat Cardiovascular No chest pain/pressure Cardiovascular No dyspnea 03/25/2018 Respiratory chest congestion 03/25/2018 Respiratory cough 03/25/2018 Respiratory No dyspnea 03/25/2018 Gastrointestinal No abdominal pain 2017 Gastrointestinal No constipation 2017 Gastrointestinal No diarrhea 03/25/2018 Gastrointestinal No nausea 03/25/2018 Gastrointestinal No vomiting 03/25/2018 Dermatologic No rash 03/25/2018 Neurologic No alteration of consciousness 03/25/2018 Neurologic No mental status change 2017 Constitutional recent illness 01/30/2018 Constitutional No chills 01/30/2018 Constitutional No diaphoresis 01/30/2018 Constitutional No fever 01/30/2018 Eyes No eye erythema 01/30/2018 Ears/Nose/Throat/Neck nasal allergies Ears/Nose/Throat/Neck nasal discharge Ears/Nose/Throat/Neck postnasal drip Ears/Nose/Throat/Neck sinus congestion Ears/Nose/Throat/Neck No sore throat Cardiovascular No chest pain/pressure Cardiovascular No dyspnea 01/30/2018 Respiratory No chest congestion 2017 Respiratory cough 01/30/2018 Respiratory No dyspnea 01/30/2018 Gastrointestinal No abdominal pain 2017 Gastrointestinal No constipation 2017 Gastrointestinal No diarrhea 01/30/2018 Gastrointestinal No nausea 01/30/2018 Gastrointestinal No vomiting 01/30/2018 Dermatologic No rash 01/30/2018 Neurologic No alteration of consciousness 01/30/2018 Neurologic No mental status change 2017 Ears/Nose/Throat/Neck otalgia 01/30/2018 Constitutional No recent illness 2017 Constitutional No chills 01/20/2018 Constitutional No fever 01/20/2018 Eyes No eye erythema 01/20/2018 Ears/Nose/Throat/Neck No nasal discharge 01/20/2018 Cardiovascular No chest pain/pressure 03/2018 Cardiovascular No dyspnea 01/20/2018 Respiratory No cough 01/20/2018 Respiratory No dyspnea 01/20/2018 Musculoskeletal joint complaint 2017 Neurologic No alteration of consciousness 01/20/2018 Neurologic No mental status change 2017 Constitutional [...] Orthopedics Constitutional general appearance Overall: well nourished 04/20/2018 None Full Exam - Orthopedics Constitutional general appearance Overall: well developed 04/20/2018 None Full Exam - Orthopedics Constitutional general appearance Overall: in no acute distress 04/20/2018 None Full Exam - Orthopedics Eyes conjunctiva/ eyelids Overall: conjunctiva clear 04/20/2018 None Full Exam - Orthopedics Eyes conjunctiva/ eyelids Overall: eyelids normal 04/20/2018 None Full Exam - Orthopedics Ears/Nose/Throat lips/teeth/gingiva Overall: benign lips 04/20/2018 None Full Exam - Orthopedics Ears/Nose/Throat oral cavity/pharynx/larynx Overall: oral mucosa clear 04/20/2018 None Full Exam - Orthopedics Respiratory respiratory effort/rhythm Overall: no retractions 04/20/2018 None Full Exam - Orthopedics Respiratory respiratory effort/rhythm Overall: normal rate 04/20/2018 None Full Exam - Orthopedics Psychiatric orientation/consciousness Overall: oriented to person, place and time 04/20/2018 None Full Exam - Orthopedics Psychiatric mood and affect Overall: normal mood and affect 04/20/2018 None Full Exam - Orthopedics Psychiatric appearance Overall: well-groomed, good eye contact 04/20/2018 None Full Exam - Orthopedics MS: head/neck insp & palp - H/N Overall: head atraumatic 04/20/2018 None Full Exam - Orthopedics MS: spine/rib/pelvis insp & palp - S/R/P Ribs/trunk inspection: normal ribs and sternum 04/20/2018 tender to palpation, tender on inspiration Full Exam - ENT Constitutional general appearance Overall: well nourished 03/25/2018 None Full Exam - ENT Constitutional general appearance Overall: well developed 03/25/2018 None Full Exam - ENT Constitutional general appearance Overall: in no acute distress 03/25/2018 None Full Exam - ENT Ears/Nose/Throat otoscopic exam Overall: external auditory canals normal 03/25/2018 None Full Exam - ENT Ears/Nose/Throat otoscopic exam Left tympanic membrane: air -fluid level 03/25/2018 None Full Exam - ENT Ears/Nose/Throat otoscopic exam Right tympanic membrane: air-fluid level 03/25/2018 None Full Exam - ENT Ears/Nose/Throat nasal mucosa, septum, turbinates Drainage: clear 03/25/2018 None Full Exam - ENT Ears/Nose/Throat nasal mucosa, septum, turbinates Drainage: yellow 03/25/2018 None Full Exam - ENT Ears/Nose/Throat lips/ teeth/gingiva Overall: benign lips 03/25/2018 None Full Exam - ENT Ears/Nose/Throat oropharynx Posterior Pharynx: clear post nasal drainage 03/25/2018 None Full Exam - ENT Face and Head palpation Left maxillary sinus: tender 03/25/2018 None Full Exam - ENT Face and Head palpation Right maxillary sinus: tender 03/25/2018 None Full Exam - ENT Respiratory inspection Overall: no retractions 03/25/2018 None Full Exam - ENT Respiratory inspection Overall: normal rate None Full Exam - ENT Cardiovascular auscultation of heart Overall: regular rate 03/25/2018 None Full Exam - ENT Cardiovascular auscultation of heart Overall: normal heart sounds 03/25/2018 None Full Exam - ENT Lymphatic palpation of lymph nodes Overall: anterior cervical chain benign 03/25/2018 None Full Exam - ENT Lymphatic palpation of lymph nodes Overall: posterior cervical chain benign 03/25/2018 None Full Exam - ENT Neurologic mood and affect Overall: normal mood 03/25/2018 None Full Exam - ENT Neurologic mood and affect Overall: normal affect 03/25/2018 None Full Exam - ENT Neurologic orientation Overall: oriented to person, place and time 03/25/2018 None Full Exam - ENT Respiratory auscultation Diffuse: diminished None Full Exam - ENT Constitutional general appearance Overall: well nourished 01/30/2018 None Full Exam - ENT Constitutional general appearance Overall: well developed 01/30/2018 None Full Exam - ENT Constitutional general appearance Overall: in no acute distress 01/30/2018 None Full Exam - ENT Ears/Nose/Throat otoscopic exam Overall: external auditory canals normal 01/30/2018 None Full Exam - ENT Ears/Nose/Throat otoscopic exam Left tympanic membrane: air -fluid level 01/30/2018 None Full Exam - ENT Ears/Nose/Throat otoscopic exam Right tympanic membrane: air-fluid level 01/30/2018 None Full Exam - ENT Ears/Nose/Throat nasal mucosa, septum, turbinates Drainage: clear 01/30/2018 None Full Exam - ENT Ears/Nose/Throat nasal mucosa, septum, turbinates Drainage: yellow 01/30/2018 None Full Exam - ENT Ears/Nose/Throat lips/ teeth/gingiva Overall: benign lips 01/30/2018 None Full Exam - ENT Ears/Nose/Throat oropharynx Posterior Pharynx: clear post nasal drainage 01/30/2018 None Full Exam - ENT Face and Head palpation Left maxillary sinus: tender 01/30/2018 None Full Exam - ENT Face and Head palpation Right maxillary sinus: tender 01/30/2018 None Full Exam - ENT Respiratory inspection Overall: no retractions 01/30/2018 None Full Exam - ENT Respiratory inspection Overall: normal rate None Full Exam - ENT Respiratory auscultation Overall: breath sounds clear bilaterally 01/30/2018 None Full Exam - ENT Cardiovascular auscultation of heart Overall: regular rate 01/30/2018 None Full Exam - ENT Cardiovascular auscultation of heart Overall: normal heart sounds 01/30/2018 None Full Exam - ENT Lymphatic palpation of lymph nodes Overall: anterior cervical chain benign 01/30/2018 None Full Exam - ENT Lymphatic palpation of lymph nodes Overall: posterior cervical chain benign 01/30/2018 None Full Exam - ENT Neurologic mood and affect Overall: normal mood 01/30/2018 None Full Exam - ENT Neurologic mood and affect Overall: normal affect 01/30/2018 None Full Exam - ENT Neurologic orientation Overall: oriented to person, place and time 01/30/2018 None Full Exam - ENT Integument inspection of skin Dermatitis: erythema 01/30/2018 None Full Exam - ENT Integument inspection of skin Location: right hand 01/30/2018 index finger Full Exam - Orthopedics Constitutional general appearance Overall: well nourished 01/20/2018 None Full Exam - Orthopedics Constitutional general appearance Overall: well developed 01/20/2018 None Full Exam - Orthopedics Constitutional general appearance Overall: in no acute distress 01/20/2018 None Full Exam - Orthopedics Eyes conjunctiva/ eyelids Overall: conjunctiva clear 01/20/2018 None Full Exam - Orthopedics Eyes conjunctiva/ eyelids Overall: eyelids normal 01/20/2018 None Full Exam - Orthopedics Ears/Nose/Throat lips/teeth/gingiva Overall: benign lips 01/20/2018 None Full Exam - Orthopedics Ears/Nose/Throat oral cavity/pharynx/larynx Overall: oral mucosa clear 01/20/2018 None Full Exam - Orthopedics Respiratory respiratory effort/rhythm Overall: no retractions 01/20/2018 None Full Exam - Orthopedics Respiratory respiratory effort/rhythm Overall: normal rate 01/20/2018 None Full Exam - Orthopedics MS: head/neck insp & palp - H/N Overall: head atraumatic 01/20/2018 None Full Exam - Orthopedics MS: left lower extremity insp & palp - LLE Knee: joint swelling 01/20/2018 None Full Exam - Orthopedics MS: left lower extremity insp & palp - LLE Knee: joint tenderness 01/20/2018 None Full Exam - Orthopedics MS: left lower extremity range of motion - LLE Knee: pain with flexion 01/20/2018 None Full Exam - Orthopedics MS: left lower extremity range of motion - LLE Knee: pain with extension 01/20/2018 None Full Exam - Orthopedics MS: left lower extremity stability - LLE Knee: hypermobile 01/20/2018 None Full Exam - Orthopedics Psychiatric orientation/consciousness Overall: oriented to person, place and time 01/20/2018 None Full Exam - Orthopedics Psychiatric mood and affect Overall: normal mood and affect 01/20/2018 None Full Exam - Orthopedics Psychiatric appearance Overall: well-groomed, good eye contact 01/20/2018 None Full Exam - Orthopedics Constitutional general [...] hypermobile 12/30/2017 None Full Exam - General 1995 Constitutional general appearance Overall: well developed 11/27/2017 [...] lips 11/04/2017 None Full Exam - General 1994 [...] clear 06/12/2015 None Full Exam - General 1995 Ears/Nose/Throat [...] accomodation 10/07/2014 None Procedures Procedure Codes Date ROCEPHIN, PER 250 MG CPT-4: J0696 03/25/2018 TRIAMCINOLONE ACET INJ NOS CPT-4: J3301 03/25/2018 ROCEPHIN, PER 250 MG CPT-4: J0696 01/30/2018 TRIAMCINOLONE ACET INJ NOS CPT-4: J3301 11/27/2017 ROCEPHIN, PER 250 MG CPT-4: J0696 11/27/2017 ROCEPHIN, PER 250 MG CPT-4: J0696 11/17/2017 ROCEPHIN, PER 250 MG CPT-4: J0696 09/22/2017 TRIAMCINOLONE ACET INJ NOS CPT-4: J3301 09/15/2017 THER/PROPH/DIAG INJ SC/IM CPT-4: 87496 04/23/2017 TRIAMCINOLONE ACET INJ NOS CPT-4: J3301 04/23/2017 ROCEPHIN, PER 250 MG CPT-4: J0696 04/23/2017 TRIAMCINOLONE ACET INJ NOS CPT-4: J3301 02/20/2017 TRIAMCINOLONE ACET INJ NOS CPT-4: J3301 01/28/2017 ROCEPHIN, PER 250 MG CPT-4: J0696 01/28/2017 TRIAMCINOLONE ACET INJ NOS CPT-4: J3301 12/13/2016 ROCEPHIN, PER 250 MG CPT-4: J0696 12/13/2016 THER/PROPH/DIAG INJ SC/IM CPT-4: 45699 09/17/2016 TRIAMCINOLONE ACET INJ NOS CPT-4: J3301 09/17/2016 PROMETHAZINE HCL INJECTION CPT-4: J2550 07/01/2016 TRIAMCINOLONE ACET INJ NOS CPT-4: J3301 03/22/2016 URINALYSIS NONAUTO W/O SCOPE CPT-4: 59681 12/11/2015 Vital Signs Date Vital 04/20/2018 Blood Pressure 1: 122/76 Code : 8480-6 Heart Rate 1: 55 bpm Height: 5'8" SpO2: 99% Temperature: 37.1 (C) / 98.7 (F) Weight: 03/25/2018 Blood Pressure 1: 132/86 Code : 8480-6 BMI: 44.9 Code : 19836-2 Heart Rate 1 : 73 bpm Height: 5'8" SpO2: 97% Temperature: 37.3 (C) / 99.1 (F) Weight: 295 lbs 01/30/2018 Blood Pressure 1: 150/96 Code : 8480-6 Blood Pressure 1: 170/92 Code: 8480-6 BMI: 45.0 Code: 63048-4 Heart Rate 1: 81 bpm Height: 5'8" SpO2: 98% Weight: 296 lbs 01/20/2018 Blood Pressure 1: 148/88 Code : 8480-6 BMI: 45.0 Code : 35614-4 Heart Rate 1 : 104 bpm Height: 5'8" SpO2: 97% Weight: 296 lbs 12/30/2017 Blood Pressure 1: 140/90 Code : 8480-6 Blood Pressure 1: 164/88 Code: 8480-6 BMI: 45.0 Code: 61719-2 Heart Rate 1: 88 bpm Height: 5'8" SpO2: 97% Weight: 296 lbs 11/27/2017 Blood Pressure 1: 128/72 Code : 8480-6 Heart Rate 1: 102 bpm Height: SpO2: 98% Weight: 11/19/2017 BMI: 44.2 Code: 22408-1 Height: 5'8" Weight: 291 lbs 11/17/2017 Blood Pressure 1: 126/72 Code : 8480-6 BMI: 44.2 Code : 73593-3 Heart Rate 1 : 98 bpm Height: 5'8" SpO2: 98% Weight: 291 lbs 11/04/2017 Blood Pressure 1: 134/80 Code : 8480-6 Heart Rate 1: 96 bpm Height: SpO2: 98% Weight: 09/22/2017 Blood Pressure 1: 124/70 Code : 8480-6 Heart Rate 1: 98 bpm SpO2: 98% Temperature: 37.2 (C) / 98.9 (F) 09/15/2017 Blood Pressure 1: 128/78 Code : 8480-6 BMI: 43.5 Code : 63195-1 Heart Rate 1 : 104 bpm Height: 5'8" SpO2: 98% Weight: 286 lbs 04/23/2017 Blood Pressure 1: 120/78 Code : 8480-6 BMI: 44.1 Code : 13701-8 Heart Rate 1 : 102 bpm Height: 5'8" SpO2: 98% Temperature: 37.3 (C) / 99.1 (F) Weight: 290 lbs 03/27/2017 Blood Pressure 1: 138/76 Code : 8480-6 Heart Rate 1: 84 bpm Height: SpO2: 96% Temperature: 37.3 (C) / 99.2 (F) Weight: 03/04/2017 Blood Pressure 1: 132/84 Code : 8480-6 BMI: 42.6 Code : 13329-9 Heart Rate 1 : 73 bpm Height: [...] Code : 8480-6 BMI: 42.6 Code : 17997-0 Heart Rate 1 : 92 bpm Height: 5'8" SpO2: 99% Temperature: 37.4 (C) / 99.4 (F) Weight: 280 lbs 01/28/2017 Blood Pressure 1: 128/60 Code : 8480-6 BMI: 42.6 Code : 19348-2 Heart Rate 1 : 78 bpm Height: 5'8" SpO2: 97% Weight: 280 lbs 12/13/2016 Blood Pressure 1: 144/82 Code : 8480-6 BMI: 42.1 Code : 44885-0 Heart Rate 1 : 77 bpm Height: 5'8" SpO2: 98% Weight: 277 lbs 10/21/2016 Blood Pressure 1: 136/84 Code : 8480-6 Heart Rate 1: 63 bpm Height: 5'8" SpO2: 98% Temperature: 37.3 (C) / 99.1 (F) Weight: 09/30/2016 Blood Pressure 1: 128/74 Code : 8480-6 BMI: 41.1 Code : 56666-0 Heart Rate 1 : 65 bpm Height: 5'8" SpO2: 99% Weight: 270 lbs 09/17/2016 Blood Pressure 1: 162/72 Code : 8480-6 BMI: 41.1 Code : 76447-8 Heart Rate 1 : 86 bpm Height: 5'8" SpO2: 92% Weight: 270 lbs 07/15/2016 Blood Pressure 1: 122/64 Code : 8480-6 BMI: 39.5 Code : 11861-2 Heart Rate 1 : 89 bpm Height: 5'8" SpO2: 98% Temperature: 37.2 (C) / 99.0 (F) Weight: 260 lbs 07/04/2016 Blood Pressure 1: 136/82 Code : 8480-6 Heart Rate 1: 104 bpm Height: SpO2: 98% Weight: 07/01/2016 Blood Pressure 1: 138/72 Code : 8480-6 Heart Rate 1: 101 bpm SpO2: 98% 06/05/2016 Blood Pressure 1: 132/82 Code : 8480-6 BMI: 38.6 Code : 00678-1 Heart Rate 1 : 98 bpm Height: 5'8" SpO2: 97% Temperature: 36.8 (C) / 98.2 (F) Weight: 254 lbs 04/02/2016 Blood Pressure 1: 148/92 Code : 8480-6 BMI: 40.3 Code : 39002-0 Heart Rate 1 : 112 bpm Height: 5'8" SpO2: 98% Weight: 265 lbs 03/22/2016 Blood Pressure 1: 134/72 Code : 8480-6 BMI: 40.3 Code : 43821-1 Heart Rate 1 : 120 bpm Height: 5'8" SpO2: 98% Temperature: 38.7 (C) / 101.6 (F) Weight: 265 lbs 03/05/2016 Blood Pressure 1: 144/66 Code : 8480-6 BMI: 40.4 Code : 73081-9 Heart Rate 1 : 82 bpm Height: 5'8" SpO2: 92% Weight: 266 lbs 01/29/2016 Blood Pressure 1: 128/86 Code : 8480-6 BMI: 42.4 Code : 09908-0 Heart Rate 1 : 95 bpm Height: 5'8" SpO2: 96% Temperature: 37.5 (C) / 99.5 (F) Weight: 279 lbs 12/11/2015 Blood Pressure 1: 130/80 Code : 8480-6 BMI: 41.7 Code : 32413-1 Heart Rate 1 : 79 bpm Height: 5'8" SpO2: 96% Weight: 274 lbs 11/09/2015 Blood Pressure 1: 136/80 Code : 8480-6 BMI: 38.8 Code : 31013-2 Heart Rate 1 : 80 bpm Height: 5'8" SpO2: 99% Weight: 255 lbs 09/12/2015 Blood Pressure 1: 158/88 Code : 8480-6 BMI: 38.6 Code : 04098-8 Heart Rate 1 : 83 bpm Height: 5'8" SpO2: 98% Weight: 254 lbs 08/28/2015 Blood Pressure 1: 138/84 Code : 8480-6 BMI: 36.8 Code : 19172-4 Heart Rate 1 : 128 bpm Height: 5'8" SpO2: 99% Weight: 242 lbs 08/11/2015 Blood Pressure 1: 140/96 Code : 8480-6 BMI: 37.7 Code : 09361-5 Heart Rate 1 : 93 bpm Height: 5'8" SpO2: 98% Weight: 248 lbs 07/31/2015 Blood Pressure 1: 160/80 Code : 8480-6 BMI: 37.7 Code : 70852-8 Heart Rate 1 : 122 bpm Height: 5'8" SpO2: 98% Temperature: 37.2 (C) / 98.9 (F) Weight: 248 lbs 06/12/2015 Blood Pressure 1: 134/82 Code : 8480-6 BMI: 36.2 Code : 05798-6 Heart Rate 1 : 102 bpm Height: 5'8" SpO2: 99% Weight: 238 lbs 01/20/2015 Blood Pressure 1: 132/82 Code : 8480-6 BMI: 35.6 Code : 05902-8 Heart Rate 1 : 84 bpm Height: 5'8" SpO2: 96% Weight: 234 lbs 10/07/2014 Blood Pressure 1: 132/82 Code : 8480-6 BMI: 34.5 Code : 62869-4 Heart Rate 1 : 95 bpm Height: 5'8" SpO2: 99% Weight: 227 lbs Functional Status No Functional Status data History of Present Illness Symptom Name Status Result Effective Date Notes Location on the right side of the chest 04/20/2018 None Quality pressure 02/2018 None Quality sharp 2017 None Onset and Resolution sudden in onset 04/20/2018 None Onset of Symptom 3 days ago 04/20/2018 None sinus congestion Location frontal sinuses 03/25/2018 None sinus congestion Quality fullness 03/25/2018 None sinus congestion Quality pressure 03/25/2018 None sinus congestion Quality pain 03/25/2018 None sinus congestion Onset and Resolution sudden in onset 03/25/2018 None sinus congestion Onset of Symptom 4 days ago 03/25/2018 None sinus congestion Frequency of Episodes daily 03/25/2018 None earache Location both ears 03/25/2018 None earache Onset and Resolution sudden in onset 03/25/2018 None earache Onset of Symptom 4 days ago 03/25/2018 None arthropod bite Location on both hands 01/30/2018 right index finger arthropod bite Quality constant 01/30/2018 None arthropod bite Quality swollen 01/30/2018 None arthropod bite Onset of Symptom 2 days ago 01/30/2018 None sinus congestion Location frontal sinuses 01/30/2018 None sinus congestion Quality constant 01/30/2018 None sinus congestion Quality fullness 01/30/2018 None sinus congestion Quality pressure 01/30/2018 None sinus congestion Onset and Resolution sudden in onset 01/30/2018 None sinus congestion Onset of Symptom 3 days ago 01/30/2018 None sore throat Location diffusely 01/30/2018 None sore throat Quality constant 01/30/2018 None sore throat Quality scratchy 01/30/2018 None sore throat Onset and Resolution sudden in onset 01/30/2018 None sore throat Onset of Symptom 3 days ago 01/30/2018 None earache Location both ears 01/30/2018 None earache Onset and Resolution sudden in onset 01/30/2018 None earache Onset of Symptom 3 days ago 01/30/2018 None knee pain Location on the left 01/20/2018 None knee pain Quality catching 01/20/2018 None knee pain Quality giving way 01/20/2018 None knee pain Quality popping 01/20/2018 None knee pain Quality sharp pain 01/20/2018 None knee pain Quality constant 01/20/2018 None knee pain Onset and Resolution sudden in onset 01/20/2018 None knee pain Onset of Symptom 2 weeks ago 01/20/2018 None knee pain Frequency of Episodes daily 01/20/2018 None knee pain Location on the left 12/30/2017 [...] data Encounters Encounter Performer Location Codes Date EST. PATIENT, LEVEL III Diagnosis: Cough[ICD10: R05] Diagnosis: Pleurodynia[ICD10: R07.81] Shobha Jarvis MD, [facility] CPT-4 : 13101 04/20/2018 67548 EST. PATIENT, LEVEL IV Diagnosis: Other acute sinusitis[ICD10: J01.80] Diagnosis: Other allergic rhinitis[ICD10: J30.89] [facility] CPT-4: 11339 03/25/2018 41897 EST. PATIENT, LEVEL III Diagnosis: Other acute sinusitis[ICD10: J01.80] Diagnosis: Other allergic rhinitis[ICD10: J30.89] Diagnosis: Cellulitis of right finger[ICD10: L03.011] Diagnosis: Acute serous otitis media, right ear[ICD10: H65.01] [facility] CPT-4: 47486 01/30/2018 03109 EST. PATIENT, LEVEL III Diagnosis: Pain in left knee[ICD10: M25.562] Shobha Jarvis MD [facility] CPT -4: 68655 01/20/2018 66623 EST. PATIENT, LEVEL III Diagnosis: Pain in left knee[ICD10: M25.562] Shobha Jarvis MD [facility] CPT -4: 91360 12/30/2017 63230 EST. PATIENT, LEVEL IV Diagnosis: Pneumonia due to other specified infectious organisms[ICD10: J16.8] Shobha Jarvis MD [facility] CPT-4: 35800 11/27/2017 (14405) Miscellaneous no charge Diagnosis: Cellulitis of right lower limb[ICD10: L03.115] Shobha Jarvis MD [facility] CPT-4: 54592 11/19/2017 77824 EST. PATIENT, LEVEL III Diagnosis: Cellulitis of right lower limb[ICD10: L03.115] Shobha Jarvis MD [facility] CPT-4: 38028 11/17/2017 51989 EST. PATIENT, LEVEL IV Diagnosis: Other mucopurulent conjunctivitis, left eye[ICD10: H10.022] Diagnosis: Other allergic rhinitis[ICD10: J30.89] Shobha Jarvis MD [facility] CPT-4: 59059 11/04/2017 74116 EST. PATIENT, LEVEL III Diagnosis: 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[ICD10 : M32.15] Diagnosis: Fever, unspecified[ICD10: R50.9] Shobha Jarvis MD [facility] CPT- 4: 60290 09/22/2017 96471 EST. PATIENT, LEVEL IV Diagnosis: 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[ICD10 : M32.15] Shobha Jarvis MD [facility] CPT-4: 13337 2017 73031 EST. PATIENT, LEVEL IV Diagnosis: Acute suppurative otitis media without spontaneous rupture of ear drum, right ear[ICD10: H66.001] Diagnosis: 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[ICD10 : M32.15] Shobha Jarvis MD [facility] CPT-4: 00204 2016 21710 EST. PATIENT, LEVEL IV Diagnosis: 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[ICD10 : M32.15] Diagnosis: Hematuria, unspecified[ICD10: R31.9] Diagnosis: Other malaise[ICD10: R53.81] Shobha Jarvis MD, [facility] CPT-4 : 30483 03/27/2017 40628 EST. PATIENT, LEVEL IV Diagnosis: Systemic lupus erythematosus, organ or system involvement unspecified [ICD10: M32.10] Diagnosis: Other fatigue[ICD10: R53.83] Diagnosis: Other malaise[ICD10: R53.81] Diagnosis: Fever, unspecified[ICD10: R50.9] Shobha Jarvis MD, [facility] CPT- 4: 24344 03/04/2017 82756 EST. PATIENT, LEVEL IV Diagnosis: 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[ICD10 : M32.15] Diagnosis: Fever, unspecified[ICD10: R50.9] Shobha Jarvis MD, [facility] CPT- 4: 05453 02/25/2017 36190 EST. PATIENT, LEVEL IV Diagnosis: Other acute sinusitis[ICD10: J01.80] Diagnosis: Acute laryngopharyngitis[ICD10: J06.0] Diagnosis: Other allergic rhinitis[ICD10: J30.89] Shobha Jarvis MD, [facility] CPT-4: 07148 02/20/2017 62340 EST. PATIENT, LEVEL III Diagnosis: 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[ICD10 : M32.15] Shobha Jarvis MD, [facility] CPT-4: 93791 2016 84921 EST. PATIENT, LEVEL III Diagnosis: Systemic lupus erythematosus, organ or system involvement unspecified [ICD10: M32.10] Diagnosis: Paresthesia of skin[ICD10: R20.2] Diagnosis: Dysuria[ICD10: R30.0] Shobha Jarvis MD, [facility] CPT-4: 95698 01/28/2017 29881 EST. PATIENT, LEVEL III Diagnosis: 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[ICD10 : M32.15] Shobha Jarvis MD, [facility] CPT-4: 46103 2016 ([id number]) 03118 EST. PATIENT, LEVEL III Diagnosis: Cough[ICD10: R05] Diagnosis: Acute upper respiratory infection, unspecified[ICD10: J06.9] Ela Jarvis MD, [facility] CPT-4: 64340 10/21/2016 27412 EST. PATIENT, LEVEL IV Diagnosis: Generalized anxiety disorder[ICD10: F41.1] Diagnosis: Systemic lupus erythematosus, organ or system involvement unspecified [ICD10: M32.10] Shobha Jarvis MD, [facility] CPT-4: 79449 09/30/2016 52974 EST. PATIENT, LEVEL IV Diagnosis: Systemic lupus erythematosus, organ or system involvement unspecified [ICD10: M32.10] Shobha Jarvis MD, [facility] CPT-4: 67443 09/17/2016 38501 EST. PATIENT, LEVEL IV Diagnosis: Acute laryngopharyngitis[ICD10: J06.0] Shobha Jarvis MD, [facility] CPT-4: 23601 07/15/2016 01555 EST. PATIENT, LEVEL III Diagnosis: Other acute sinusitis[ICD10: J01.80] Diagnosis: Other allergic rhinitis[ICD10: J30.89] Nancy Jarvis MD, [facility] CPT-4: 40244 07/04/2016 28996 EST. PATIENT, LEVEL IV Diagnosis: Migraine without aura, intractable, without status migrainosus[ICD10 : G43.019] Diagnosis: Paresthesia of skin[ICD10: R20.2] Diagnosis: Dysuria[ICD10: R30.0] Shobha Jarvis MD, [facility] CPT-4: 00073 07/01/2016 57073 EST. PATIENT, LEVEL III Diagnosis: Acute laryngopharyngitis[ICD10: J06.0] Diagnosis: Other acute sinusitis[ICD10: J01.80] Diagnosis: Other allergic rhinitis[ICD10: J30.89] Shobha Jarvis MD, [facility] CPT-4: 64794 06/05/2016 20574 EST. PATIENT, LEVEL III Diagnosis: Other allergic rhinitis[ICD10: J30.89] Shobha Jarvis MD, [facility] CPT-4: 89000 04/02/2016 73914 EST. PATIENT, LEVEL IV Diagnosis: Acute suppurative otitis media without spontaneous rupture of ear drum, bilateral[ICD10: H66.003] Diagnosis: Other acute sinusitis[ICD10: J01.80] Shobha Jarvis MD, [facility] CPT-4: 06054 03/22/2016 61468 EST. PATIENT, LEVEL III Diagnosis: Systemic lupus erythematosus, organ or system involvement unspecified [ICD10: M32.10] Diagnosis: Hypokalemia[ICD10: E87.6] Diagnosis: Dysphagia, oropharyngeal phase[ICD10: R13.12] Shobha Jarvis MD, [facility] CPT-4: 17058 03/05/2016 (71156) Miscellaneous no charge Diagnosis: Rash and other nonspecific skin eruption[ICD10: R21] Ela Jarvis MD, [facility] CPT-4: 21549 02/01/2016 (78024) 27068 EST. PATIENT, LEVEL III Diagnosis: Acute recurrent maxillary sinusitis[ICD10: J01.01] Ela Jarvis MD, [facility] CPT-4: 44397 01/29/2016 (23500) 44251 EST. PATIENT, LEVEL III Diagnosis: Urinary tract infection, site not specified[ICD10: N39.0] Diagnosis: Low back pain[ICD10: M54.5] Ela Jarvis MD, [facility] CPT-4: 36424 12/11/2015 48292 EST. PATIENT, LEVEL IV Diagnosis: Other acute sinusitis[ICD10: J01.80] Shobha Jarvis MD, [facility] CPT-4: 33069 11/09/2015 (24262) 24642 EST. PATIENT, LEVEL III Diagnosis: Hypokalemia[ICD10: E87.6] Diagnosis: Localized edema[ICD10: R60.0] Ela Jarvis MD, [facility] CPT-4: 72764 09/12/2015 13858 EST. PATIENT, LEVEL III Diagnosis: Impacted cerumen, bilateral[ICD10: H61.23] Diagnosis: Systemic lupus erythematosus, organ or system involvement unspecified [ICD10: M32.10] Shobha Jarvis MD, [facility] CPT-4: 47295 08/28/2015 32747 EST. PATIENT, LEVEL IV Diagnosis: Impacted cerumen, right ear[ICD10: H61.21] Diagnosis: Other hemorrhoids[ICD10: K64.8] Diagnosis: Other constipation[ICD10: K59.09] Shobha Jarvis MD, [facility] CPT -4: 50292 08/11/2015 98931 EST. PATIENT, LEVEL IV Diagnosis: Acute suppurative otitis media without spontaneous rupture of ear drum, bilateral[ICD10: H66.003] Diagnosis: Diffuse otitis externa, bilateral[ICD10: H60.313] Shobha Jarvis MD, [facility] CPT-4: 79647 07/31/2015 44103 EST. PATIENT, LEVEL IV Diagnosis: Systemic lupus erythematosus, organ or system involvement unspecified [ICD10: M32.10] Diagnosis: Pain in unspecified joint[ICD10: M25.50] Diagnosis: Acute laryngopharyngitis[ICD10: J06.0] Shobha Jarvis MD, [facility] CPT-4: 92635 06/12/2015 (46358) 82664 EST. PATIENT, LEVEL III Diagnosis: Systemic lupus erythematosus[ICD9: 710.0] Diagnosis: JOINT PAIN-MULT JOINTS[ICD9: 719.49] Nancy Jarvis MD, [facility] CPT-4: 84035 01/20/2015 (10055) OFFICE VISIT, NEW - LEVEL 3 Diagnosis: Systemic lupus erythematosus[ICD9: 710.0] Diagnosis: Gastroesophageal reflux[ICD9: 530.81] Ela Jarvis MD, [facility] CPT-4: 92738 10/07/2014 Plan of Care Planned Activity Notes Codes Status Date Visit Plan: Rib pain, pain with inspiration - will send RX - will check chest x-ray and treat as indicated - The patient is to call the office if the pain is worsening or does not improve. 04/20/2018 Appointment: Shobha Bland WPtel: [address] [place], [place] [phone] (15 min) Moderate 04/20/2018 Patient Education: Patient Medication Summary Completed 04/20/2018 Visit Plan: Sinusitis - Pt has acute [...] spray in the nasal steroid allergy spray. 03/25/2018 Appointment: [facility] Bland [facility]Ptel[facility] (15 min) Moderate 03/25/2018 Patient Education: Patient Medication Summary Completed 03/25/2018 Referral: David Chowdhury Referral Initiated 02/12/2018 Visit Plan: Sinusitis - Pt has acute [...] spray in the nasal steroid allergy spray. Otitis Media - discussed the diagnosis with the patient, script sent electronically to the pharmacy for treatment of the infection. The disease course was discussed and the need to notify the clinic if symptoms do not improve or if they acutely worsen. Cellulitis - continue with oral antibiotics as previously directed, return to clinic as previously directed, call for acute change in symptoms, worsening redness, warmth, discharge. 01/30/2018 Visit Plan: Sinusitis - Pt has acute [...] spray in the nasal steroid allergy spray. Otitis Media - discussed the diagnosis with the patient, script sent electronically to the pharmacy for treatment of the infection. The disease course was discussed and the need to notify the clinic if symptoms do not improve or if they acutely worsen. Cellulitis - continue with oral antibiotics as previously directed, return to clinic as previously directed, call for acute change in symptoms, worsening redness, warmth, discharge. 01/30/2018 Visit Plan: Sinusitis - Pt has acute [...] spray in the nasal steroid allergy spray. Otitis Media - discussed the diagnosis with the patient, script sent electronically to the pharmacy for treatment of the infection. The disease course was discussed and the need to notify the clinic if symptoms do not improve or if they acutely worsen. Cellulitis - continue with oral antibiotics as previously directed, return to clinic as previously directed, call for acute change in symptoms, worsening redness, warmth, discharge. 01/30/2018 Appointment: Shobha Bland WPtel: [phone] [phone] (15 min) Moderate 01/30/2018 Patient Education: Patient Medication Summary Completed 01/30/2018 Visit Plan: Ongoing left knee pain - pt is to use RICE - Rest, Ice, Compression, Elevation - pt is to follow up with Ortho as scheduled - pt is to notify clinic if symptoms do not improve, if they worsen, or with any changes, questions, or concerns. 01/20/2018 Appointment: [facility]ha Bland [facility]Ptel[phone] [facility] (30 min) Complex 01/20/2018 Patient Education: Patient Medication Summary Completed 01/20/2018 Visit Plan: Left knee pain - the patient was instructed in appropriate posture, need for weight loss to alleviate abdominal obesity that is worsening the patient's pain.. The pt is to use prn antiinflammatories to manage acute pain. The patient is to call the office if the pain is worsening or does not improve. 12/30/2017 Appointment: Shobha Bland WPtel: [facility]5 [facility]66[facility] (30 min) Complex 12/30/2017 Patient Education: Patient Medication Summary Completed 12/30/2017 Care Plan: MRI JNT OF LWR EXTRE W/O DYE Pending 12/30/2017 Care Plan: Referral Order SNOMED-CT : [id number] Pending 12/30/2017 Visit Plan: Pneumonia - Pt has been diagnosed with pneumonia by physical exam. A chest xray has been ordered as have antibiotics. The pt is aware of the diagnosis and the need for acute treatment of this illness. 11/27/2017 Appointment: Shobha Bland WPtel: [facility]4 [facility]6[address] (15 min) Moderate 11/27/2017 Patient Education: Patient Medication Summary Completed 11/27/2017 Care Plan: CHEST X-RAY 2VW FRONTAL&LATL LOINC : 82670-0 Pending 11/27/2017 Appointment: Nurse Visit 11/19/2017 Patient Education: Patient Medication Summary Completed 11/19/2017 Visit Plan: Cellulitis - continue with oral antibiotics as previously directed, return to clinic as previously directed, call for acute change in symptoms, worsening redness, warmth, discharge. 11/17/2017 Appointment: Shobha Bland WPtel: [facility]8 [facility]6[address] (15 min) Moderate 11/17/2017 Patient Education: Patient [...] allergy spray. 11/04/2017 Appointment: Shobha Bland WPtel: [facility] (15 min) Moderate 11/04/2017 Patient Education: Patient Medication Summary Completed 11/04/2017 Appointment: Shobha Bland WPtel: [facility] (15 min) Moderate 10/07/2017 Visit Plan: Fevers, lupus - will give 1g Rocephin IM and check labs - defer to specialists. Pt is to notify clinic if symptoms do not improve, if they worsen, or with any changes, questions, or concerns. 09/22/2017 Appointment: Shobha Bland WPtel: [facility] (15 min) Moderate 09/22/2017 Patient Education: Patient Medication Summary Completed 09/22/2017 Visit Plan: Lupus, malaise, tremors, flushing - discussed with Dr. Jarvis, and her specialists at -will start Prednisone taper. Pt is to notify clinic if symptoms do not improve, if they worsen, or with any changes, questions, or concerns. 09/15/2017 Appointment: Shobha Bland WPtel: [facility] (15 min) Moderate 09/15/2017 Patient Education: Patient [...] as needed. 04/23/2017 Appointment: [facility]ha Bland [facility]Ptel: [phone] [phone] (30 min) Complex 04/23/2017 Patient Education: Patient Medication Summary Completed 04/23/2017 Visit Plan: Malaise, Lupus - will check UA - Pt is to follow up with her specialists at , she is to update clinic of any changes in her current treatment plan. 03/27/2017 Appointment: Shobha Bland WPtel: [phone] [facility] (30 min) Complex 03/27/2017 Patient Education: Patient [...] treatment plan. 03/04/2017 Appointment: [facility]ha Bland [facility]Ptel: [phone] [facility] (30 min) Complex 03/04/2017 Patient Education: Patient [...] or concerns. 02/25/2017 Appointment: Baldo Shobha WPtel: [phone] [facility] [place] Nurse Visit 02/25/2017 Patient Education: Patient [...] or concerns. 01/28/2017 Appointment: Shobha Bland WPtel: [facility]5 [facility]6[address] (15 min) Moderate 01/28/2017 Patient Education: Patient [...] or concerns. 12/13/2016 Appointment: Shobha Bland WPtel: [facility]5 [facility]6[address] (15 min) Moderate 12/13/2016 Patient Education: Patient Medication Summary Completed 12/13/2016 Visit Plan: URI - Pt advised to increase fluids, vitamin C. Discussed natural and expected course of this diagnosis and need to alert me if symptoms do not follow expected course, or if any worse. RX sent to patient' s pharmacy. 10/21/2016 Appointment: Ela Dodson WPtel: [facility]5 [phone] [place] (15 min) Moderate 10/21/2016 Patient Education: Patient Medication Summary Completed 10/21/2016 Appointment: Ela Dodson WPtel: [facility]3 [phone] [place] (15 min) Moderate 10/14/2016 Visit Plan: [...] before starting xanax. Lupus - defer to director of partnerships 09/30/2016 Appointment: Shobha Bland WPtel: [phone] [facility]6[address] (30 min) Complex 09/30/2016 [...] with any questions or concerns. 09/17/2016 Appointment: hSobha Bland WPtel: [facility]0 [facility]6[address] (30 min) Complex 09/17/2016 [...] concerns. 07/15/2016 Appointment: Shobha Bland WPtel: [phone] [facility]66[facility] (30 min) Complex 07/15/2016 Patient Education: [...] allergy spray. 07/04/2016 Appointment: Shobha Bland WPtel: [phone] [facility] [place] (15 min) Moderate 07/04/2016 Patient Education: [...] or concerns. 07/01/2016 Appointment: Ela Dodson WPtel: [facility]8 [phone] [place] (10 min) Simple 07/01/2016 Appointment: Shobha Bland WPtel: [facility]8 [facility] (10 min) Simple 07/01/2016 Patient Education: Patient [...] spray. 04/02/2016 Appointment: Ela Dodson [facility]Ptel[phone] [phone] (15 min) Moderate 04/02/2016 Patient Education: Patient [...] Medication Summary Completed 03/22/2016 Referral: Rojelio Polk [facility]el:[phone] [facility] Referral Initiated 03/18/2016 Care Plan: Referral Order SNOMED-CT : [id number] Pending 03/14/2016 Visit Plan: Lupus and difficulty [...] dysphagia persists. 03/05/2016 Appointment: Ela Dodson WPtel: [facility] (30 min) Complex 03/05/2016 Patient Education: Patient Medication Summary Completed 03/05/2016 Visit Plan: Stitches removed x 2 right upper arm 02/01/2016 Appointment: Ela Dodson WPtel: [facility]3 [place] [phone] (30 min) Complex 02/01/2016 Patient Education: Patient Medication Summary Completed 02/01/2016 Visit Plan: Sinusitis - Pt has acute infection - pain in face, maxillary region, Pt informed to use decongestant, RX given to patient, sinus rinses also recommended. Call if symptoms do not show improvement. 01/29/2016 Appointment: Ela Dodson WPtel: [facility]7 [address] (30 min) Complex 01/29/2016 Patient Education: [...] plan. 12/11/2015 Appointment: Ela Dodson WPtel: [phone] [phone] (15 min) Moderate 12/11/2015 Patient Education: Patient Medication Summary Completed 12/11/2015 Patient Education: Obesity Completed 12/11/2015 Visit Plan: Sinusitis - Pt has acute infection - pain in face, maxillary region, Pt informed to use decongestant, RX given to patient, sinus rinses also recommended. Call if symptoms do not show improvement. 11/09/2015 Appointment: Ela Dodson WPtel: [phone] [phone] [place] (15 min) Moderate 11/09/2015 Patient Education: Patient [...] process. 08/28/2015 Appointment: Shobha Bland WPtel: [phone] [facility] [place] (15 min) Moderate 08/28/2015 Patient Education: Patient Medication Summary Completed 08/28/2015 Patient Education: Obesity Completed 08/28/2015 Appointment: Ela Dodson WPtel: [address] [place], [place] [phone] (30 min) Complex 08/25/2015 Visit Plan: Cerumen [...] Summary Completed 06/12/2015 Care Plan: C LIAM A SC Pending 06/12/2015 Visit Plan: Lupus nephritis-hospital [...] Chowdhury Referral Appointment Confirmed Referral: Rojelio Polk HPtel:[phone] [facility] [place] Referral Initiated Instructions Comment . Rib pain, pain with inspiration - will send RX - will check chest x-ray and treat as indicated - The patient is to call the office if the pain is worsening or does not improve. 1 Gram of rocephin (antibiotic) today 80mg [...] worsen, or with any questions or concerns. Will send for IV levaquin and IV [...] with any changes, questions, or concerns. . Low potassium-check labs today [...] prevent diarrhea. Patient verbalized understanding of plan. Will check chest x-ray today Steroid and [...] for acute treatment of this illness. . Sinusitis - Pt has acute infection [...] in the nasal steroid allergy spray. . Otitis Media - discussed the diagnosis [...] improving or if symptoms worsen acutely. . Anxiety - the patient has uncontrolled [...] before starting xanax. Lupus - defer to director of partnerships . Allergies - chronic - recommended pt [...] or with any questions or concerns. . Ongoing left knee pain - pt is to use RICE - Rest, Ice, Compression, Elevation - pt is to follow up with Ortho as scheduled - pt is to notify clinic if symptoms do not improve, if they worsen, or with any changes, questions, or concerns. PREDNISONE - TAKE 60MG TWICE A DAY [...] if symptoms do not show improvement. . Conjunctivitis - rx for eye drops/lube [...] spray in the nasal steroid allergy spray. Otitis Media - discussed the diagnosis with the patient, script sent electronically to the pharmacy for treatment of the infection. The disease course was discussed and the need to notify the clinic if symptoms do not improve or if they acutely worsen. Cellulitis - continue with oral antibiotics as previously directed, return to clinic as previously directed, call for acute change in symptoms, worsening redness, warmth, discharge. . Sinusitis - Pt has acute infection [...] spray in the nasal steroid allergy spray. Otitis Media - discussed the diagnosis with the patient, script sent electronically to the pharmacy for treatment of the infection. The disease course was discussed and the need to notify the clinic if symptoms do not improve or if they acutely worsen. Cellulitis - continue with oral antibiotics as previously directed, return to clinic as previously directed, call for acute change in symptoms, worsening redness, warmth, discharge. . URI - Pt advised to increase fluids, vitamin C. Discussed natural and expected course of this diagnosis and need to alert me if symptoms do not follow expected course, or if any worse. RX sent to patient's pharmacy. . Malaise, Lupus - will check UA - Pt is to follow up with her specialists at , she is to update clinic of any changes in her current treatment plan. . Sinusitis - Pt has [...] spray in the nasal steroid allergy spray. Otitis Media - discussed the diagnosis with the patient, script sent electronically to the pharmacy for treatment of the infection. The disease course was discussed and the need to notify the clinic if symptoms do not improve or if they acutely worsen. Cellulitis - continue with oral antibiotics as previously directed, return to clinic as previously directed, call for acute change in symptoms, worsening redness, warmth, discharge. . Lupus - Dr. Jarvis in to [...] in the nasal steroid allergy spray. . Low potassium-check labs today Edema - pt has been advised to elevate legs to prevent dependent edema, compression has been recommended to help to naturally decrease peripheral edema. Diuretic use has been discussed and pt has been instructed in appropriate use of such medication as necessary to further attempt to reduce peripheral edema. . Sinusitis - Pt has acute infection - pain in face, maxillary region, Pt informed to use decongestant, RX given to patient, sinus rinses also recommended. Call if symptoms do not show improvement. Kenalog 80mg shot today Rocephin 1g shot today Start Z-pack today Tomorrow - increase prednisone to 60mg x 2 days, then 40mg x 2 days, then 20mg x 2 days, then back to your current dose I called and left a message with - If they want me to change [...] and adjust treatment plan as needed. . URI - Pt advised to increase [...] if symptoms do not show improvement. . Lupus nephritis-hospital follow up-recent biopsy-patient to [...] symptoms, or with any questions or concerns. 1 [...] or with any questions or concerns. . Lupus - Dr. Jarvis in to see pt. Will check labs, Pt sees a specialist at . URI - Pt advised to increase fluids, vitamin C. Discussed natural and expected course of this diagnosis and need to alert me if symptoms do not follow expected course, or if any worse. RX sent to patient's pharmacy. Appointment with Dr. Chowdhury at 2PM [facility] free [facility] and [...] or with any questions or concerns. . Lupus, fatigue, malaise, sore throat, URI [...] clinic on any change in treatment plan. 1 Gram of rocephin (antibiotic) today 80mg [...] if symptoms do not show improvement. . Discussed with Dr. Jarvis - will [...]
--- OUTSIDE RECORDS SUMMARY | 2018-05-10 17:42 | XMS REPORT | CCD ---
Author Author [facility] Address [address] [place] [address] Phone Care Team Providers Care Education Department Chair Name Role Phone PP Unavailable CCM Unavailable Summary Purpose Interface Exchange Insurance Providers Payer name Policy type / Coverage type Covered democrat ID Effective Begin Date Effective End Date Blue Cross [facility] Blue Cross/Blue [facility] [id number] 2015 Unknown Family history Brother Diagnosis Age At Onset Asthma Unknown defect Unknown Mother Diagnosis Age At Onset Diabetes mellitus Type 2 Unknown Hypertension Unknown Depression Unknown Hyperlipidemia Unknown Social History Social History Element Codes Description Effective Dates Marital status Unknown Single 09/30/2016 Number of children Unknown 0 10/07/[address]: 477026279 Never smoker 10/07/[address]: 922511814 Never drinks alcohol 10/07/2014 Allergies, Adverse Reactions, Alerts Substance Reaction Codes Entered Date Inactivated Date Status * NO KNOWN FOOD ALLERGIES Unknown 10/07/2014 No Inactive Date Active * NO KNOWN DRUG ALLERGIES Unknown 10/07/2014 No Inactive Date Active Past Medical History Illness Codes Condition Status Onset Date Resolved Date Other acute sinusitis ICD-9: 461.8 ICD-10: J01.80 [...] Problems Condition Codes Effective Dates Condition Status Other acute sinusitis ICD-9: 461.8 ICD-10: J01.80 [...] Start Date Stop Date Status Fill Instructions amoxicillin 500 mg capsule RxNorm: 997542 1 Capsule(s) PO TID 03/25/2018 04/03/2018 Active prednisone 10 mg tablet RxNorm: 168482 Tablet(s) PO 03/25/2018 No Stop Date Active 60 ,60,40,40,20,20,10,10 ceftriaxone 500 mg solution for injection RxNorm: 5267616 Inj 03/25/2018 03/25/2018 Inactive Kenalog 40 mg/mL suspension for injection RxNorm: 0350853 Milliliter(s) Inj 03/25/2018 03/25/2018 Inactive Lyrica 100 mg capsule RxNorm: 976178 1 Capsule(s) PO TID and daily PRN 02/10/2018 04/25/2018 Active doxycycline hyclate 100 mg capsule RxNorm: 7050677 1 Capsule(s) PO BID 01/30/2018 02/08/2018 Inactive ceftriaxone 500 mg solution for injection RxNorm: 4772786 2 Milliliter(s) Inj 01/30/2018 01/30/2018 Inactive Lyrica 50 mg capsule RxNorm: 429728 1 Capsule(s) PO TID 201701/29/2018 Inactive Voltaren 1 % topical gel RxNorm: 337866 1 Application TOP TID as needed 12/30/2017 No Stop Date Active tramadol 50 mg tablet RxNorm: 438655 1 Tablet(s) PO BID as needed for pain 12/30/2017 01/03/2018 Inactive Nexium 40 mg capsule,delayed release RxNorm: 350454 TAKE ONE CAPSULE BY MOUTH ONCE DAILY DIRECTED FOR STOMACH 12/09/2017 03/08/2018 Inactive prednisone 10 mg tablet RxNorm: 625631 Tablet(s) PO UD 2017 No Stop Date Active 60,60,50,50,40,40,30,30,20,20,10,10,5 every other day x 2 doses albuterol sulfate 2.5 mg/3 mL (0.083 %) solution for nebulization RxNorm: 826699 3 Milliliter(s) INH UD 11/27/2017 No Stop Date Active cefdinir 300 mg capsule RxNorm: 785778 1 Capsule(s) PO BID 12/06/2017 Inactive ceftriaxone 500 mg solution for injection RxNorm: 4084723 1 Milliliter(s) Inj 11/27/2017 11/27/2017 Inactive Kenalog 40 mg/mL suspension for injection RxNorm: 2941496 1 Milliliter(s) Inj 11/27/2017 11/27/2017 Inactive Zithromax Z-John 250 mg tablet RxNorm: 970632 1 Tablet(s) PO UD 11/27/2017 02/09/2018 Inactive ceftriaxone 500 mg solution for injection RxNorm: 0942363 2 Inj 11/17/2017 11/17/2017 Inactive doxycycline hyclate 100 mg capsule RxNorm: 0732774 1 Capsule(s) PO BID 11/17/2017 11/26/2017 Inactive Flonase Allergy Relief 50 mcg/actuation nasal spray, suspension RxNorm: 1274310 1 [place] NASAL BID as needed 11/04/2017 No Stop Date Active ciprofloxacin 0.3 % eye drops RxNorm: 723118 2 Drop(s) ophthalmic (eye) Q2H while awake x 2 days, then Q4H x 5 days 11/04/2017 No Stop Date Active Lyrica 100 mg capsule RxNorm: 815171 1 Capsule(s) PO TID and daily PRN 10/27/2017 01/23/2018 Inactive Keflex 500 mg capsule RxNorm: 767407 1 Capsule(s) PO TID 201710/09/2017 Inactive Keflex 500 mg capsule RxNorm: 778263 1 Capsule(s) PO TID 201710/02/2017 Inactive ceftriaxone 500 mg solution for injection RxNorm: 2846905 Inj 09/22/2017 09/22/2017 Inactive prednisone 10 mg tablet RxNorm: 693076 Tablet(s) PO 09/15/2017 No Stop Date Active 6, 6,5,5,4,4,3,3,2,2,1,1 then back to 5mg daily Kenalog 40 mg/mL suspension for injection RxNorm: 8985427 1.5 Milliliter(s) Inj 09/15/2017 09/15/2017 Inactive Lyrica 100 mg capsule RxNorm: 791990 1 Capsule(s) PO TID 201710/26/2017 Inactive Lyrica 100 mg capsule RxNorm: 554921 1 Capsule(s) PO TID 201709/21/2017 Inactive Lunesta 1 mg tablet RxNorm: 129168 1 Tablet(s) PO QHS 201706/14/2017 Inactive Lunesta 1 mg tablet RxNorm: 091263 1 Tablet(s) PO QHS 201705/15/2017 Inactive Zithromax Z-John 250 mg tablet RxNorm: 466517 1 Tablet(s) PO UD 04/23/2017 04/27/2017 Inactive Lyrica 100 mg capsule RxNorm: 394156 1 Capsule(s) PO TID 201606/23/2017 Inactive prednisone 20 mg tablet RxNorm: 657870 Tablet(s) PO 60mg x 3 days, then 40mg x 3 days, then 25mg x 3 days, then back to 13mg daily 02/25/2017 No Stop Date Active Levaquin 250 mg tablet RxNorm: 707240 1 Tablet(s) PO daily 03/01/2017 Inactive amoxicillin 500 mg capsule RxNorm: 086775 1 Capsule(s) PO TID 02/20/2017 02/20/2017 Inactive Kenalog 40 mg/mL suspension for injection RxNorm: 1127027 Milliliter(s) Inj 02/20/2017 02/20/2017 Inactive Augmentin 500 mg-125 mg tablet RxNorm: 705104 1 Tablet(s) PO TID 02/20/2017 02/20/2017 Inactive Xanax 0.25 mg tablet RxNorm: 066003 1 Tablet(s) PO TID as needed anxiety 02/05/2017 No Stop Date Active prednisone 5 mg tablet RxNorm: 766840 1 Tablet(s) PO daily to take with the 20mg pill to equal 25mg daily x 2 weeks. 02/04/2017 No Stop Date Active prednisone 20 mg tablet RxNorm: 211408 1 Tablet(s) PO daily to take with the 5mg to equal 25mg daily x 2 weeks. 02/04/2017 No Stop Date Active Kenalog 40 mg/mL suspension for injection RxNorm: 9851927 Milliliter(s) Inj 01/28/2017 01/28/2017 Inactive ceftriaxone 500 mg solution for injection RxNorm: 7143299 Inj 01/28/2017 01/28/2017 Inactive prednisone 20 mg tablet RxNorm: 176706 Tablet(s) PO 60mg x 3 days, then 40mg x 3 days 01/28/2017 02/24/2017 Inactive ceftriaxone 500 mg solution for injection RxNorm: 0537371 Inj 12/13/2016 12/13/2016 Inactive Kenalog 40 mg/mL suspension for injection RxNorm: 2574163 Milliliter(s) Inj 12/13/2016 12/13/2016 Inactive prednisone 20 mg tablet RxNorm: 312059 Tablet(s) PO 60mg x 3 days, then 40mg x 3 days 12/13/2016 01/27/2017 Inactive Zithromax Z-John 250 mg tablet RxNorm: 157783 1 Tablet(s) PO UD 10/21/2016 10/25/2016 Inactive fluoxetine 10 mg tablet RxNorm: 410908 1 Tablet(s) PO BID 09/3008/27/2017 Inactive Xanax 0.25 mg tablet RxNorm: 760512 1 Tablet(s) PO TID as needed anxiety 09/30/2016 02/04/2017 Inactive prednisone 20 mg tablet RxNorm: 473779 Tablet(s) PO 60mg x 1 week, then 40mg x 1 week, then back to 20mg 09/17/2016 No Stop Date Active Kenalog 40 mg/mL suspension for injection RxNorm: 8202101 Milliliter(s) Inj 09/17/2016 09/17/2016 Inactive amoxicillin 500 mg capsule RxNorm: 557147 1 Capsule(s) PO TID 07/15/2016 07/24/2016 Inactive Zithromax Z-John 250 mg tablet RxNorm: 920024 1 Tablet(s) PO UD 07/04/2016 10/20/2016 Inactive promethazine 25 mg/mL injection solution RxNorm: 308722 Milliliter(s) Inj 07/01/2016 07/01/2016 Inactive promethazine 25 mg tablet RxNorm: 664846 1 Tablet(s) PO TID as needed 07/01/2016 07/10/2016 Inactive Flonase Allergy Relief 50 mcg/actuation nasal spray, suspension RxNorm: 0558579 1 [place] NASAL BID 06/05/2016 No Stop Date Active Zithromax Z-John 250 mg tablet RxNorm: 353267 Tablet(s) PO UD 07/03/2016 Inactive amoxicillin 500 mg capsule RxNorm: 813934 1 Capsule(s) PO TID 03/22/2016 04/04/2016 Inactive Kenalog 40 mg/mL suspension for injection RxNorm: 6137447 2 Milliliter(s) Inj 03/22/2016 03/22/2016 Inactive Diflucan 150 mg tablet RxNorm: 714324 1 Tablet(s) PO daily 03/09/2016 Inactive Diflucan 150 mg tablet RxNorm: 147380 1 Tablet(s) PO daily 03/04/2016 Inactive Keflex 500 mg capsule RxNorm: 427662 1 Capsule(s) PO TID 201502/04/2016 Inactive Keflex 500 mg capsule RxNorm: 458561 1 Capsule(s) PO TID 201512/17/2015 Inactive Augmentin 500 mg-125 mg tablet RxNorm: 595380 1 Tablet(s) PO TID 11/09/2015 11/18/2015 Inactive Anusol-HC 25 mg rectal suppository RxNorm: 1705070 1 Suppository RTL daily as needed pain 08/11/2015 No Stop Date Active Miralax 17 gram/dose oral powder RxNorm: 783011 1 taper PO 05/201512/08/2015 Inactive Ciprodex 0.3 %-0.1 % ear drops,suspension RxNorm: 016936 2 Drop(s) OTIC BID 07/31/2015 08/06/2015 Inactive amoxicillin 500 mg capsule RxNorm: 937926 1 Capsule(s) PO TID 07/31/2015 08/09/2015 Inactive Augmentin 500 mg-125 mg tablet RxNorm: 113228 1 Tablet(s) PO TID 07/07/2015 07/16/2015 Inactive Augmentin 500 mg-125 mg tablet RxNorm: 130856 1 Tablet(s) PO TID 07/07/2015 07/06/2015 Inactive Zithromax Z-John 250 mg tablet RxNorm: 457345 Tablet(s) PO UD 08/27/2015 Inactive [place] 20 mg/gram/actuation (2 %) topical soln in metered -dose pump RxNorm: 8565868 2 Application TOP BID 01/20/201502/18 Inactive acetazolamide 250 mg tablet RxNorm: 759460 1 Tablet(s) PO BID 01/20/2015 02/18/2015 Inactive [place] 20 mg/gram/actuation (2 %) topical soln in metered -dose pump RxNorm: 5237548 2 Application TOP BID 01/20/201501/19 Inactive cefuroxime axetil 500 mg tablet RxNorm: 490935 1 Tablet(s) PO BID 12/23/2014 12/22/2014 Inactive cefuroxime axetil 500 mg tablet RxNorm: 047892 1 Tablet(s) PO BID 12/23/2014 01/01/2015 Inactive trazodone 50 mg tablet RxNorm: 829473 1-2 Tablet(s) PO QHS 11/05/2014 Inactive mycophenolate mofetil 500 mg tablet RxNorm: 976156 2 Tablet(s) PO BID No Start Date Active Vitamin D2 50,000 unit capsule RxNorm: 795729 1 Capsule(s) PO QW No Start Date Active sucralfate 1 gram tablet RxNorm: 992770 1 Gram(s) PO QID No Start Date Active ferrous fumarate 325 mg (106 mg iron) tablet RxNorm: 656705 1 Tablet(s) PO daily No Start Date Active aspirin, buffered 81 mg tablet,delayed release RxNorm: 730327 1 Tablet(s) PO daily No Start Date Active potassium chloride ER 20 mEq tablet,extended release RxNorm: 323943 1 Tablet(s) PO BID No Start Date Active Calcium 500 + D (D3) oral RxNorm: 812750 oral No Start Date Active tramadol 50 mg tablet RxNorm: 316180 1 Tablet(s) PO BID as needed No Start Date Active prednisone 10 mg tablet RxNorm: 098568 1 Tablet(s) PO daily No Start Date Active hydroxychloroquine 200 mg tablet RxNorm: 423664 1 Tablet(s) PO BID No Start Date Active tacrolimus 1 mg capsule RxNorm: 546184 1 Capsule(s) PO daily No Start Date 06/23/2016 Inactive amitriptyline 25 mg tablet RxNorm: 389265 1 Tablet(s) PO daily No Start Date 06/11/2015 Inactive Lyrica 75 mg capsule RxNorm: 410655 1 Capsule(s) PO daily No Start Date 02/03/2017 Inactive celecoxib 100 mg capsule RxNorm: 967157 1 Capsule(s) PO daily No Start Date 01/19/2015 Inactive fluoxetine 10 mg tablet RxNorm: 974964 1 Tablet(s) PO daily No Start Date 09/29/2016 Inactive Lyrica 100 mg capsule RxNorm: 337376 1 Capsule(s) PO TID No Start Date 03/26/2017 Inactive Nexium 40 mg capsule,delayed release RxNorm: 138417 1 Capsule(s) PO daily Started by specialist No Start Date 12/08/2017 Inactive Medication Administered Medication Codes Instructions Start Date Status ceftriaxone 500 mg solution for injection RxNorm: 5174173 03/25/2018 No longer Active Kenalog 40 mg/mL suspension for injection RxNorm: 0778320 Milliliter 03/25/2018 No longer Active ceftriaxone 500 mg solution for injection RxNorm: 8791260 2Milliliter 01/30/2018 No longer Active ceftriaxone 500 mg solution for injection RxNorm: 7515634 1Milliliter 11/27/2017 No longer Active Kenalog 40 mg/mL suspension for injection RxNorm: 4904603 1Milliliter 11/27/2017 No longer Active ceftriaxone 500 mg solution for injection RxNorm: 6309560 2 11/17/2017 No longer Active ceftriaxone 500 mg solution for injection RxNorm: 7263288 09/22/2017 No longer Active Kenalog 40 mg/mL suspension for injection RxNorm: 4945440 1.5Milliliter 09/15/2017 No longer Active Kenalog 40 mg/mL suspension for injection RxNorm: 0795944 Milliliter 02/20/2017 No longer Active Kenalog 40 mg/mL suspension for injection RxNorm: 3868138 Milliliter 01/28/2017 No longer Active ceftriaxone 500 mg solution for injection RxNorm: 0415732 01/28/2017 No longer Active Kenalog 40 mg/mL suspension for injection RxNorm: 4974493 Milliliter 12/13/2016 No longer Active ceftriaxone 500 mg solution for injection RxNorm: 8462946 12/13/2016 No longer Active Kenalog 40 mg/mL suspension for injection RxNorm: 1281809 Milliliter 09/17/2016 No longer Active promethazine 25 mg/mL injection solution RxNorm: 611768 Milliliter 07/01/2016 No longer Active Kenalog 40 mg/mL suspension for injection RxNorm: 7152223 2Milliliter 03/22/2016 No longer Active Immunizations Vaccine Codes Date Status Influenza CVX: 141 03/12/2013 completed Assessments Condition Codes Effective Dates Other allergic rhinitis ICD-10: J30.89 ICD-9: 477.8 [...] For Visit Effective Dates Notes sinus congestion 03/25/2018 arthropod bite 01/30/2018 knee [...] to follow 09/22/2017 Random Urine Protein/Creatinine Ratio [id number] U Prot 719.0 mg/dl 09/22/2017 Random Urine Protein/Creatinine Ratio Gbp5269 U CREAT 273.0 mg/dL 09/22/2017 Random Urine Protein/Creatinine Ratio Shh8833 R MTP/Creat Ratio 2.63 09/22/2017 Urine Culture Ucult Preliminary NO Growth Day 1 09/17/2017 Urine Culture Ucult Complete NO Growth Day 2 09/17/2017 Random Urine Protein/Creatinine Ratio Spn9826 U Prot 242.0 mg/dl 09/16/2017 Random Urine Protein/Creatinine Ratio Caa1512 U CREAT 79.0 mg/dL 09/16/2017 Random Urine Protein/Creatinine Ratio Hvs7185 R MTP/Creat Ratio 3.06 09/16/2017 Comp Metabolic Nrk485 NA 136 mEq/L 09/16/2017 Comp Metabolic Pag843 K 4.3 mEq/L 09/16/2017 Comp Metabolic Laj775 CL 105 mEq/L 09/16/2017 Comp Metabolic Tdn193 CO2 23.0 mEq/L 09/16/2017 Comp Metabolic Ogg191 ANION GAP 12 09/16/2017 Comp Metabolic Eps327 GLUCOSE 115 mg/dL 09/16/2017 Comp Metabolic Rxt122 Creat 1.1 mg/dL 09/16/2017 Comp Metabolic Bsj422 eGFR 68 ml/min/1.73m2 09/16/2017 Comp Metabolic Tap118 BUN 9 mg/dL 09/16/2017 Comp Metabolic Pde103 B/C Ratio 8.3 Ratio 09/16/2017 Comp Metabolic Ope854 CALCIUM 8.9 mg/dL 09/16/2017 Comp Metabolic Jvh867 ALK PHOS 65 U/L 09/16/2017 Comp Metabolic Vjf769 AST(SGOT) 15 U/L 09/16/2017 Comp Metabolic Cxn723 ALT(SGPT) 14 U/L 09/16/2017 Comp Metabolic Uge425 BILI T 0.4 mg/dL 09/16/2017 Comp Metabolic Hii358 ALBUMIN 3.5 g/dL 09/16/2017 Comp Metabolic Brd985 TPRO 6.0 g/dL 09/16/2017 Comp Metabolic Kdf971 GLOB 2.5 g/dL 09/16/2017 Comp Metabolic Ezf837 A/G Ratio 1.4 Ratio 09/16/2017 Comp Metabolic Qua791 Osmo 272 mOsmo 09/16/2017 Urinalysis Ord28 U-Color Yellow 09/15/2017 Urinalysis [...] 38.3 % 09/15/2017 Cbc With Differential Ord2 Lymph% 27.2 % 09/15/2017 Cbc With Differential Ord2 MCV 77.1 fl 09/15/2017 Cbc With Differential Ord2 [place]% 11.3 % 09/15/2017 Cbc With Differential Ord2 MCH 24.7 pg 09/15/2017 Cbc With Differential Ord2 Eos% 1.6 % 09/15/2017 Cbc With Differential Ord2 MCHC 32.1 pg 09/15/2017 Cbc With Differential Ord2 PLT 334 K/ul 09/15/2017 Cbc With Differential Ord2 Baso% 0.5 % 09/15/2017 Cbc With Differential Ord2 Neut ABS# 4.36 K/ul 09/15/2017 Cbc With Differential Ord2 RDW 17.7 % 09/15/2017 Cbc With Differential Ord2 Lymph ABS# 2.00 K/ul 09/15/2017 Cbc With Differential Ord2 [place] ABS# 0.8 K/ul 09/15/2017 Cbc With Differential Ord2 Eos ABS# 0.1 K/ul 09/15/2017 Cbc With Differential Ord2 Baso ABS# 0.0 K/ul 09/15/2017 Comp Metabolic Fnn541 NA 142 mEq/L 04/23/2017 Comp Metabolic Can583 K 3.6 mEq/L 04/23/2017 Comp Metabolic Eoj038 CL 108 mEq/L 04/23/2017 Comp Metabolic Kyh903 CO2 23.0 mEq/L 04/23/2017 Comp Metabolic Wja167 ANION GAP 15 04/23/2017 Comp Metabolic Tdc735 GLUCOSE 93 mg/dL 04/23/2017 Comp Metabolic Jkq263 Creat 0.9 mg/dL 04/23/2017 Comp Metabolic Nqn610 eGFR 82 ml/min/1.73m2 04/23/2017 Comp Metabolic Mzl869 BUN 10 mg/dL 04/23/2017 Comp Metabolic Txq739 B/C Ratio 10.9 Ratio 04/23/2017 Comp Metabolic Nbd590 CALCIUM 8.5 mg/dL 04/23/2017 Comp Metabolic Wxo911 ALK PHOS 51 U/L 04/23/2017 Comp Metabolic Fyr481 AST(SGOT) 17 U/L 04/23/2017 Comp Metabolic Igw166 ALT(SGPT) 15 U/L 04/23/2017 Comp Metabolic Rjr787 BILI T 0.2 mg/dL 04/23/2017 Comp Metabolic Tfg176 ALBUMIN 3.3 g/dL 04/23/2017 Comp Metabolic Pdk336 TPRO 5.7 g/dL 04/23/2017 Comp Metabolic Csi975 GLOB 2.4 g/dL 04/23/2017 Comp Metabolic Btu704 A/G Ratio 1.4 Ratio 04/23/2017 Comp Metabolic Wes956 Osmo 282 mOsmo 04/23/2017 Cbc With Differential [...] 25.1 pg 04/23/2017 Cbc With Differential Ord2 [place]% 9.7 % 04/23/2017 Cbc With Differential Ord2 [...] 1.90 K/ul 04/23/2017 Cbc With Differential Ord2 [place] ABS# 0.6 K/ul 04/23/2017 Cbc With Differential Ord2 Eos ABS# 0.2 K/ul 04/23/2017 Cbc With Differential Ord2 Baso ABS# 0.0 K/ul 04/23/2017 Urine Culture Ucult Preliminary NO Growth Day 1 03/31/2017 Urine Culture Ucult Complete NO Growth Day 2 03/31/2017 Random Urine Protein/Creatinine Ratio Dej6071 U Prot 427.0 mg/dl 03/28/2017 Random Urine Protein/Creatinine Ratio Vri9620 U CREAT 99.0 mg/dL 03/28/2017 Random Urine Protein/Creatinine Ratio Hit1011 R MTP/Creat Ratio 4.31 03/28/2017 Comp Metabolic Mre160 NA 141 mEq/L 02/04/2017 Comp Metabolic Reb251 K 4.7 mEq/L 02/04/2017 Comp Metabolic Byi922 CL 108 mEq/L 02/04/2017 Comp Metabolic Zto619 CO2 25.0 mEq/L 02/04/2017 Comp Metabolic Sdu624 ANION GAP 13 02/04/2017 Comp Metabolic Rku573 GLUCOSE 119 mg/dL 02/04/2017 Comp Metabolic Rfi687 Creat 1.1 mg/dL 02/04/2017 Comp Metabolic Eam329 eGFR 66 ml/min/1.73m2 02/04/2017 Comp Metabolic Spd253 BUN 23 mg/dL 02/04/2017 Comp Metabolic Dbq622 B/C Ratio 20.7 Ratio 02/04/2017 Comp Metabolic Foy466 CALCIUM 9.3 mg/dL 02/04/2017 Comp Metabolic Tha782 ALK PHOS 66 U/L 02/04/2017 Comp Metabolic Iso494 AST(SGOT) 11 U/L 02/04/2017 Comp Metabolic Dyy694 ALT(SGPT) 12 U/L 02/04/2017 Comp Metabolic Rws724 BILI T 0.2 mg/dL 02/04/2017 Comp Metabolic Uyy323 ALBUMIN 3.7 g/dL 02/04/2017 Comp Metabolic Tpq254 TPRO 6.0 g/dL 02/04/2017 Comp Metabolic Ttb751 GLOB 2.3 g/dL 02/04/2017 Comp Metabolic Zaa909 A/G Ratio 1.6 Ratio 02/04/2017 Comp Metabolic Ovf390 Osmo 286 mOsmo 02/04/2017 Urinalysis U-Color Yellow [...] 81.7 % 02/04/2017 Cbc With Differential Ord2 MCV 77.0 fl 02/04/2017 Cbc With Differential Ord2 Lymph% 13.4 % 02/04/2017 Cbc With Differential Ord2 [place]% 4.7 % 02/04/2017 Cbc With Differential Ord2 MCH 25.2 pg 02/04/2017 Cbc With Differential Ord2 Eos% 0.1 % 02/04/2017 Cbc With Differential Ord2 MCHC 32.7 pg 02/04/2017 Cbc With Differential Ord2 Baso% 0.1 % 02/04/2017 Cbc With Differential Ord2 PLT 335 K/ul 02/04/2017 Cbc With Differential Ord2 RDW 17.4 % 02/04/2017 Cbc With Differential Ord2 Neut ABS# 11.75 K/ul 02/04/2017 Cbc With Differential Ord2 Lymph ABS# 1.92 K/ul 02/04/2017 Cbc With Differential Ord2 [place] ABS# 0.7 K/ul 02/04/2017 Cbc With Differential Ord2 Eos ABS# 0.0 K/ul 02/04/2017 Cbc With Differential Ord2 Baso ABS# 0.0 K/ul 02/04/2017 Culture Urine [id number] URINE CULTURE SEE NOTES 02/03/2017 Urine Culture Ucult Complete >100,000 col/ml aerobic growth sent to ref lab 01/31/2017 Comp Metabolic Gal311 NA 135 mEq/L 01/30/2017 Comp Metabolic Adl163 K 4.8 mEq/L 01/30/2017 Comp Metabolic Fay174 CL 104 mEq/L 01/30/2017 Comp Metabolic Iit530 CO2 22.0 mEq/L 01/30/2017 Comp Metabolic Nwn538 ANION GAP 14 01/30/2017 Comp Metabolic Lob019 GLUCOSE 107 mg/dL 01/30/2017 Comp Metabolic Wfu294 Creat 1.4 mg/dL 01/30/2017 Comp Metabolic Xwr884 eGFR 51 ml/min/1.73m2 01/30/2017 Comp Metabolic Vto654 BUN 24 mg/dL 01/30/2017 Comp Metabolic Jjz578 B/C Ratio 17.3 Ratio 01/30/2017 Comp Metabolic Fva437 CALCIUM 8.7 mg/dL 01/30/2017 Comp Metabolic Ark886 ALK PHOS 54 U/L 01/30/2017 Comp Metabolic Jdd056 AST(SGOT) 14 U/L 01/30/2017 Comp Metabolic Udl461 ALT(SGPT) 15 U/L 01/30/2017 Comp Metabolic Loq640 BILI T 0.2 mg/dL 01/30/2017 Comp Metabolic Tte107 ALBUMIN 3.6 g/dL 01/30/2017 Comp Metabolic Cce276 TPRO 6.1 g/dL 01/30/2017 Comp Metabolic Byz536 GLOB 2.5 g/dL 01/30/2017 Comp Metabolic Deh260 A/G Ratio 1.5 Ratio 01/30/2017 Comp Metabolic Tnn166 Osmo 275 mOsmo 01/30/2017 Urinalysis Ord28 U-Color [...] to follow 01/30/2017 Random Urine Protein/Creatinine Ratio Umk7232 U Prot 115.0 mg/dl 01/30/2017 Random Urine Protein/Creatinine Ratio Znp4679 U CREAT 135.0 mg/dL 01/30/2017 Random Urine Protein/Creatinine Ratio Aqi9498 R MTP/Creat Ratio 0.85 01/30/2017 Comp Metabolic Dsi771 NA 138 mEq/L 01/29/2017 Comp Metabolic Vbd319 K 4.6 mEq/L 01/29/2017 Comp Metabolic Qxw608 CL 107 mEq/L 01/29/2017 Comp Metabolic Fwu652 CO2 21.0 mEq/L 01/29/2017 Comp Metabolic Xus505 ANION GAP 15 01/29/2017 Comp Metabolic Ali222 GLUCOSE 91 mg/dL 01/29/2017 Comp Metabolic Fdg073 Creat 1.8 mg/dL 01/29/2017 Comp Metabolic Wml587 eGFR 38 ml/min/1.73m2 01/29/2017 Comp Metabolic Ggu520 BUN 26 mg/dL 01/29/2017 Comp Metabolic Day089 B/C Ratio 14.6 Ratio 01/29/2017 Comp Metabolic Wis843 CALCIUM 8.8 mg/dL 01/29/2017 Comp Metabolic Fvj996 ALK PHOS 58 U/L 01/29/2017 Comp Metabolic Nqk391 AST(SGOT) 14 U/L 01/29/2017 Comp Metabolic Cmx276 ALT(SGPT) 14 U/L 01/29/2017 Comp Metabolic Ttl435 BILI T 0.2 mg/dL 01/29/2017 Comp Metabolic Red897 ALBUMIN 3.4 g/dL 01/29/2017 Comp Metabolic Qth071 TPRO 5.6 g/dL 01/29/2017 Comp Metabolic Yvl643 GLOB 2.2 g/dL 01/29/2017 Comp Metabolic Ojr214 A/G Ratio 1.6 Ratio 01/29/2017 Comp Metabolic Zqk716 Osmo 280 mOsmo 01/29/2017 Cbc With Differential [...] 25.1 pg 01/28/2017 Cbc With Differential Ord2 [place]% 9.6 % 01/28/2017 Cbc With Differential Ord2 Eos% 0.8 % 01/28/2017 Cbc With Differential Ord2 MCHC 31.9 pg 01/28/2017 Cbc With Differential Ord2 PLT 315 K/ul 01/28/2017 Cbc With Differential Ord2 Baso% 0.3 % 01/28/2017 Cbc With Differential Ord2 RDW 17.6 % 01/28/2017 Cbc With Differential Ord2 Neut ABS# 4.11 K/ul 01/28/2017 Cbc With Differential Ord2 Lymph ABS# 2.46 K/ul 01/28/2017 Cbc With Differential Ord2 [place] ABS# 0.7 K/ul 01/28/2017 Cbc With Differential Ord2 Eos ABS# 0.1 K/ul 01/28/2017 Cbc With Differential Ord2 Baso ABS# 0.0 K/ul 01/28/2017 Urine Culture Ucult Preliminary NO Growth Day 1 09/19/2016 Urine Culture Ucult Complete NO Growth Day 2 09/19/2016 Comp Metabolic Bjw460 NA 140 mEq/L 09/17/2016 Comp Metabolic Jym746 K 3.8 mEq/L 09/17/2016 Comp Metabolic Xhk991 CL 110 mEq/L 09/17/2016 Comp Metabolic Xgx618 CO2 20.0 mEq/L 09/17/2016 Comp Metabolic Eji393 ANION GAP 14 09/17/2016 Comp Metabolic Jqy270 GLUCOSE 88 mg/dL 09/17/2016 Comp Metabolic Lmg793 Creat 1.3 mg/dL 09/17/2016 Comp Metabolic Kwb560 eGFR 54 ml/min/1.73m2 09/17/2016 Comp Metabolic Vyn364 BUN 14 mg/dL 09/17/2016 Comp Metabolic Fyf453 B/C Ratio 10.6 Ratio 09/17/2016 Comp Metabolic Suu311 CALCIUM 8.1 mg/dL 09/17/2016 Comp Metabolic Txf574 ALK PHOS 59 U/L 09/17/2016 Comp Metabolic Igv736 AST(SGOT) 19 U/L 09/17/2016 Comp Metabolic Dwl148 ALT(SGPT) 18 U/L 09/17/2016 Comp Metabolic Ypu182 BILI T 0.3 mg/dL 09/17/2016 Comp Metabolic Eps057 ALBUMIN 3.0 g/dL 09/17/2016 Comp Metabolic Www872 TPRO 5.1 g/dL 09/17/2016 Comp Metabolic Lry324 GLOB 2.1 g/dL 09/17/2016 Comp Metabolic Ets665 A/G Ratio 1.4 Ratio 09/17/2016 Comp Metabolic Ued032 Osmo 279 mOsmo 09/17/2016 Hgb & Hct Ord65 HGB 10.3 g/dl 09/17/2016 Hgb & Hct Ord65 HCT 32.2 % 09/17/2016 C RAP A SC [id number] Strep A Negative 07/15/2016 Urine Culture Ucult Preliminary NO Growth Day 1 07/04/2016 Urine Culture Ucult Complete NO Growth Day 2 07/04/2016 Cbc With Differential Ord2 WBC 5.46 K/ul 03/22/2016 Cbc With Differential Ord2 RBC 3.68 M/ul 03/22/2016 Cbc With Differential Ord2 HGB 10.6 g/dl 03/22/2016 Cbc With Differential Ord2 Neut% 54.8 % 03/22/2016 Cbc With Differential Ord2 HCT 32.5 % 03/22/2016 Cbc With Differential Ord2 Lymph% 32.4 % 03/22/2016 Cbc With Differential Ord2 MCV 88.3 fl 03/22/2016 Cbc With Differential Ord2 MCH 28.8 pg 03/22/2016 Cbc With Differential Ord2 [place]% 11.7 % 03/22/2016 Cbc With Differential Ord2 MCHC 32.6 pg 03/22/2016 Cbc With Differential Ord2 Eos% 0.4 % 03/22/2016 Cbc With Differential Ord2 PLT 180 K/ul 03/22/2016 Cbc With Differential Ord2 Baso% 0.7 % 03/22/2016 Cbc With Differential Ord2 Neut ABS# 2.99 K/ul 03/22/2016 Cbc With Differential Ord2 RDW 16.1 % 03/22/2016 Cbc With Differential Ord2 Lymph ABS# 1.77 K/ul 03/22/2016 Cbc With Differential Ord2 [place] ABS# 0.6 K/ul 03/22/2016 Cbc With Differential Ord2 Eos ABS# 0.0 K/ul 03/22/2016 Cbc With Differential Ord2 Baso ABS# 0.0 K/ul 03/22/2016 Comp Metabolic Jml272 NA 131 mEq/L 03/22/2016 Comp Metabolic Tbt176 K 4.1 mEq/L 03/22/2016 Comp Metabolic Twu768 CL 106 mEq/L 03/22/2016 Comp Metabolic Ogb116 CO2 18.0 mEq/L 03/22/2016 Comp Metabolic Yux626 ANION GAP 11 03/22/2016 Comp Metabolic Eem492 GLUCOSE 84 mg/dL 03/22/2016 Comp Metabolic Bov439 Creat 1.6 mg/dL 03/22/2016 Comp Metabolic Izn928 eGFR 44 ml/min/1.73m2 03/22/2016 Comp Metabolic Ixk174 BUN 14 mg/dL 03/22/2016 Comp Metabolic Yia984 B/C Ratio 8.9 Ratio 03/22/2016 Comp Metabolic Amg848 CALCIUM 8.2 mg/dL 03/22/2016 Comp Metabolic Zcp728 ALK PHOS 39 U/L 03/22/2016 Comp Metabolic Yoz560 AST(SGOT) 16 U/L 03/22/2016 Comp Metabolic Zug716 ALT(SGPT) 15 U/L 03/22/2016 Comp Metabolic Pnf752 BILI T 0.3 mg/dL 03/22/2016 Comp Metabolic Sqy723 ALBUMIN 2.6 g/dL 03/22/2016 Comp Metabolic Sfg299 TPRO 4.5 g/dL 03/22/2016 Comp Metabolic Zsj748 GLOB 1.9 g/dL 03/22/2016 Comp Metabolic Rgm649 A/G Ratio 1.3 Ratio 03/22/2016 Comp Metabolic Rop451 Osmo 262 mOsmo 03/22/2016 Magnesium Ord90 Mag 2.1 mg/dL 03/05/2016 C-Reactive [...] 28.9 pg 03/05/2016 Cbc With Differential Ord2 [place]% 10.0 % 03/05/2016 Cbc With Differential Ord2 Eos% 0.5 % 03/05/2016 Cbc With Differential Ord2 MCHC 31.8 pg 03/05/2016 Cbc With Differential Ord2 PLT 237 K/ul 03/05/2016 Cbc With Differential Ord2 Baso% 0.9 % 03/05/2016 Cbc With Differential Ord2 Neut ABS# 2.58 K/ul 03/05/2016 Cbc With Differential Ord2 RDW 16.3 % 03/05/2016 Cbc With Differential Ord2 Lymph ABS# 1.33 K/ul 03/05/2016 Cbc With Differential Ord2 [place] ABS# 0.4 K/ul 03/05/2016 Cbc With Differential Ord2 Eos ABS# 0.0 K/ul 03/05/2016 Cbc With Differential Ord2 Baso ABS# 0.0 K/ul 03/05/2016 Comp Metabolic Lal773 NA 138 mEq/L 03/05/2016 Comp Metabolic Akn120 K 3.9 mEq/L 03/05/2016 Comp Metabolic Vpw056 CL 105 mEq/L 03/05/2016 Comp Metabolic Ywr434 CO2 27.0 mEq/L 03/05/2016 Comp Metabolic Yfc330 ANION GAP 10 03/05/2016 Comp Metabolic Onm446 GLUCOSE 95 mg/dL 03/05/2016 Comp Metabolic Dpr517 Creat 1.4 mg/dL 03/05/2016 Comp Metabolic Dvk698 eGFR 53 ml/min/1.73m2 03/05/2016 Comp Metabolic Xyo160 BUN 20 mg/dL 03/05/2016 Comp Metabolic Enj845 B/C Ratio 14.7 Ratio 03/05/2016 Comp Metabolic Ghq566 CALCIUM 7.9 mg/dL 03/05/2016 Comp Metabolic Bit040 ALK PHOS 43 U/L 03/05/2016 Comp Metabolic Mss722 AST(SGOT) 14 U/L 03/05/2016 Comp Metabolic Pxt239 ALT(SGPT) 15 U/L 03/05/2016 Comp Metabolic Opt452 BILI T 0.2 mg/dL 03/05/2016 Comp Metabolic Rht605 ALBUMIN 2.2 g/dL 03/05/2016 Comp Metabolic Ats040 TPRO 4.0 g/dL 03/05/2016 Comp Metabolic Wfw717 GLOB 1.9 g/dL 03/05/2016 Comp Metabolic Jqf200 A/G Ratio 1.2 Ratio 03/05/2016 Comp Metabolic App578 Osmo 278 mOsmo 03/05/2016 Sed Rate Ord21 ESR 50 mm/hr 03/05/2016 Urine Culture Ucult Preliminary NO Growth Day 1 12/13/2015 Urine Culture Ucult Complete NO Growth Day 2 12/13/2015 C-Reactive Protein Qnt Crqnt CRP 2.3 mg/dl 06/13/2015 Cpk Ord61 CPK 55 U/L 06/13/2015 Sed Rate Ord21 ESR 22 mm/hr [...] 10.0 % 06/13/2015 Cbc With Differential Ord2 [place]% 6.3 % 06/13/2015 Cbc With Differential Ord2 MCH 28.7 pg 06/13/2015 Cbc With Differential Ord2 MCHC 30.3 pg 06/13/2015 Cbc With Differential Ord2 Eos% 0.4 % 06/13/2015 Cbc With Differential Ord2 Baso% 0.2 % 06/13/2015 Cbc With Differential Ord2 PLT 259 K/ul 06/13/2015 Cbc With Differential Ord2 Neut ABS# 10.69 K/ul 06/13/2015 Cbc With Differential Ord2 RDW 16.1 % 06/13/2015 Cbc With Differential Ord2 Lymph ABS# 1.29 K/ul 06/13/2015 Cbc With Differential Ord2 [place] ABS# 0.8 K/ul 06/13/2015 Cbc With Differential Ord2 Eos ABS# 0.1 K/ul 06/13/2015 Cbc With Differential Ord2 Baso ABS# 0.0 K/ul 06/13/2015 Cbc With Differential Ord2 New Analyzer Notice Please note new ref ranges starting 05-24-2015 due to implemntation of new five part differential hematolgy analyzer. 06/13/2015 Comp Metabolic Zax858 NA 137 mEq/L 06/13/2015 Comp Metabolic Irv536 K 3.7 mEq/L 06/13/2015 Comp Metabolic Dtc119 CL 106 mEq/L 06/13/2015 Comp Metabolic Vqu002 CO2 20.0 mEq/L 06/13/2015 Comp Metabolic Cpo344 ANION GAP 15 06/13/2015 Comp Metabolic Vnd227 GLUCOSE 89 mg/dL 06/13/2015 Comp Metabolic Tvg608 Creat 0.8 mg/dL 06/13/2015 Comp Metabolic Lpw263 eGFR 94 ml/min/1.73m2 06/13/2015 Comp Metabolic Uot409 BUN 11 mg/dL 06/13/2015 Comp Metabolic Nmo523 B/C Ratio 13.3 Ratio 06/13/2015 Comp Metabolic Hjh323 CALCIUM 8.3 mg/dL 06/13/2015 Comp Metabolic Mwv023 ALK PHOS 64 U/L 06/13/2015 Comp Metabolic Hax456 AST(SGOT) 15 U/L 06/13/2015 Comp Metabolic Acp926 ALT(SGPT) 15 U/L 06/13/2015 Comp Metabolic Nsi237 BILI T 0.3 mg/dL 06/13/2015 Comp Metabolic Bvy583 ALBUMIN 3.0 g/dL 06/13/2015 Comp Metabolic Mlz769 TPRO 5.5 g/dL 06/13/2015 Comp Metabolic Ptb031 GLOB 2.5 g/dL 06/13/2015 Comp Metabolic Blp151 A/G Ratio 1.2 Ratio 06/13/2015 Comp Metabolic Kxg137 Osmo 273 mOsmo 06/13/2015 Review of Systems System Result Effective Dates Constitutional recent illness 03/25/2018 Constitutional No chills [...] clear 02/04/2017 None Full Exam - General 1995 Eyes conjunctiva /eyelids Overall: eyelids normal 02/04/2017 None Full Exam - General 1994 Eyes pupils and irises Overall: pupils equal, round, reactive to light and accomodation 02/04/2017 None Full Exam - General 1995 Ears/Nose/Throat otoscopic exam Overall: tympanic membranes clear 02/04/2017 None Full Exam - General 1995 Ears/Nose/Throat otoscopic exam Overall: external auditory canals [...] drainage 10/21/2016 None Full Exam - General 1995 Ears/Nose/Throat oral cavity/pharynx/larynx Oropharynx: erythema 10/21/2016 None [...] CPT-4: J3301 09/15/2017 THER/PROPH/DIAG INJ SC/IM CPT-4: 07470 04/23/2017 TRIAMCINOLONE ACET INJ NOS CPT-4: J3301 04/23/2017 ROCEPHIN, PER 250 MG CPT-4: J0696 04/23/2017 TRIAMCINOLONE ACET INJ NOS CPT-4: J3301 02/20/2017 TRIAMCINOLONE ACET INJ NOS CPT-4: J3301 01/28/2017 ROCEPHIN, PER 250 MG CPT-4: J0696 01/28/2017 TRIAMCINOLONE ACET INJ NOS CPT-4: J3301 12/13/2016 ROCEPHIN, PER 250 MG CPT-4: J0696 12/13/2016 THER/PROPH/DIAG INJ SC/IM CPT-4: 87708 09/17/2016 TRIAMCINOLONE ACET INJ NOS CPT-4: J3301 09/17/2016 PROMETHAZINE HCL INJECTION CPT-4: J2550 07/01/2016 TRIAMCINOLONE ACET INJ NOS CPT-4: J3301 03/22/2016 URINALYSIS NONAUTO W/O SCOPE CPT-4: 30933 12/11/2015 Vital Signs Date Vital 03/25/2018 Blood Pressure 1: 132/86 Code : 8480-6 BMI: 44.9 Code : 86669-6 Heart Rate 1 : 73 bpm Height: 5'8" SpO2: 97% Temperature: 37.3 (C) / 99.1 (F) Weight: 295 lbs 01/30/2018 Blood Pressure 1: 170/92 Code : 8480-6 Blood Pressure 1: 150/96 Code: 8480-6 BMI: 45.0 Code: 94430-8 Heart Rate 1: 81 bpm Height: 5'8" SpO2: 98% Weight: 296 lbs 01/20/2018 Blood Pressure 1: 148/88 Code : 8480-6 BMI: 45.0 Code : 23435-5 Heart Rate 1 : 104 bpm Height: 5'8" SpO2: 97% Weight: 296 lbs 12/30/2017 Blood Pressure 1: 140/90 Code : 8480-6 Blood Pressure 1: 164/88 Code: 8480-6 BMI: 45.0 Code: 97027-2 Heart Rate 1: 88 bpm Height: 5'8" SpO2: 97% Weight: 296 lbs 11/27/2017 Blood Pressure 1: 128/72 Code : 8480-6 Heart Rate 1: 102 bpm Height: SpO2: 98% Weight: 11/19/2017 BMI: 44.2 Code: 09083-7 Height: 5'8" Weight: 291 lbs 11/17/2017 Blood Pressure 1: 126/72 Code : 8480-6 BMI: 44.2 Code : 01005-2 Heart Rate 1 : 98 bpm Height: 5'8" SpO2: 98% Weight: 291 lbs 11/04/2017 Blood Pressure 1: 134/80 Code : 8480-6 Heart Rate 1: 96 bpm Height: SpO2: 98% Weight: 09/22/2017 Blood Pressure 1: 124/70 Code : 8480-6 Heart Rate 1: 98 bpm SpO2: 98% Temperature: 37.2 (C) / 98.9 (F) 09/15/2017 Blood Pressure 1: 128/78 Code : 8480-6 BMI: 43.5 Code : 58144-8 Heart Rate 1 : 104 bpm Height: 5'8" SpO2: 98% Weight: 286 lbs 04/23/2017 Blood Pressure 1: 120/78 Code : 8480-6 BMI: 44.1 Code : 66580-0 Heart Rate 1 : 102 bpm Height: 5'8" SpO2: 98% Temperature: 37.3 (C) / 99.1 (F) Weight: 290 lbs 03/27/2017 Blood Pressure 1: 138/76 Code : 8480-6 Heart Rate 1: 84 bpm Height: SpO2: 96% Temperature: 37.3 (C) / 99.2 (F) Weight: 03/04/2017 Blood Pressure 1: 132/84 Code : 8480-6 BMI: 42.6 Code : 05125-5 Heart Rate 1 : 73 bpm Height: [...] Code : 8480-6 BMI: 42.6 Code : 67567-8 Heart Rate 1 : 92 bpm Height: 5'8" SpO2: 99% Temperature: 37.4 (C) / 99.4 (F) Weight: 280 lbs 01/28/2017 Blood Pressure 1: 128/60 Code : 8480-6 BMI: 42.6 Code : 04052-6 Heart Rate 1 : 78 bpm Height: 5'8" SpO2: 97% Weight: 280 lbs 12/13/2016 Blood Pressure 1: 144/82 Code : 8480-6 BMI: 42.1 Code : 68385-6 Heart Rate 1 : 77 bpm Height: 5'8" SpO2: 98% Weight: 277 lbs 10/21/2016 Blood Pressure 1: 136/84 Code : 8480-6 Heart Rate 1: 63 bpm Height: 5'8" SpO2: 98% Temperature: 37.3 (C) / 99.1 (F) Weight: 09/30/2016 Blood Pressure 1: 128/74 Code : 8480-6 BMI: 41.1 Code : 56012-9 Heart Rate 1 : 65 bpm Height: 5'8" SpO2: 99% Weight: 270 lbs 09/17/2016 Blood Pressure 1: 162/72 Code : 8480-6 BMI: 41.1 Code : 28527-1 Heart Rate 1 : 86 bpm Height: 5'8" SpO2: 92% Weight: 270 lbs 07/15/2016 Blood Pressure 1: 122/64 Code : 8480-6 BMI: 39.5 Code : 69304-1 Heart Rate 1 : 89 bpm Height: 5'8" SpO2: 98% Temperature: 37.2 (C) / 99.0 (F) Weight: 260 lbs 07/04/2016 Blood Pressure 1: 136/82 Code : 8480-6 Heart Rate 1: 104 bpm Height: SpO2: 98% Weight: 07/01/2016 Blood Pressure 1: 138/72 Code : 8480-6 Heart Rate 1: 101 bpm SpO2: 98% 06/05/2016 Blood Pressure 1: 132/82 Code : 8480-6 BMI: 38.6 Code : 63129-9 Heart Rate 1 : 98 bpm Height: 5'8" SpO2: 97% Temperature: 36.8 (C) / 98.2 (F) Weight: 254 lbs 04/02/2016 Blood Pressure 1: 148/92 Code : 8480-6 BMI: 40.3 Code : 55147-5 Heart Rate 1 : 112 bpm Height: 5'8" SpO2: 98% Weight: 265 lbs 03/22/2016 Blood Pressure 1: 134/72 Code : 8480-6 BMI: 40.3 Code : 98742-7 Heart Rate 1 : 120 bpm Height: 5'8" SpO2: 98% Temperature: 38.7 (C) / 101.6 (F) Weight: 265 lbs 03/05/2016 Blood Pressure 1: 144/66 Code : 8480-6 BMI: 40.4 Code : 26106-3 Heart Rate 1 : 82 bpm Height: 5'8" SpO2: 92% Weight: 266 lbs 01/29/2016 Blood Pressure 1: 128/86 Code : 8480-6 BMI: 42.4 Code : 08352-0 Heart Rate 1 : 95 bpm Height: 5'8" SpO2: 96% Temperature: 37.5 (C) / 99.5 (F) Weight: 279 lbs 12/11/2015 Blood Pressure 1: 130/80 Code : 8480-6 BMI: 41.7 Code : 82178-3 Heart Rate 1 : 79 bpm Height: 5'8" SpO2: 96% Weight: 274 lbs 11/09/2015 Blood Pressure 1: 136/80 Code : 8480-6 BMI: 38.8 Code : 12787-7 Heart Rate 1 : 80 bpm Height: 5'8" SpO2: 99% Weight: 255 lbs 09/12/2015 Blood Pressure 1: 158/88 Code : 8480-6 BMI: 38.6 Code : 49239-4 Heart Rate 1 : 83 bpm Height: 5'8" SpO2: 98% Weight: 254 lbs 08/28/2015 Blood Pressure 1: 138/84 Code : 8480-6 BMI: 36.8 Code : 35163-9 Heart Rate 1 : 128 bpm Height: 5'8" SpO2: 99% Weight: 242 lbs 08/11/2015 Blood Pressure 1: 140/96 Code : 8480-6 BMI: 37.7 Code : 15892-9 Heart Rate 1 : 93 bpm Height: 5'8" SpO2: 98% Weight: 248 lbs 07/31/2015 Blood Pressure 1: 160/80 Code : 8480-6 BMI: 37.7 Code : 05049-3 Heart Rate 1 : 122 bpm Height: 5'8" SpO2: 98% Temperature: 37.2 (C) / 98.9 (F) Weight: 248 lbs 06/12/2015 Blood Pressure 1: 134/82 Code : 8480-6 BMI: 36.2 Code : 28138-6 Heart Rate 1 : 102 bpm Height: 5'8" SpO2: 99% Weight: 238 lbs 01/20/2015 Blood Pressure 1: 13282 Code : 8480-6 BMI: 35.6 Code : 44911-1 Heart Rate 1 : 84 bpm Height: 5'8" SpO2: 96% Weight: 234 lbs 10/07/2014 Blood Pressure 1: 132 Code : 8480-6 BMI: 34.5 Code : 85784-9 Heart Rate 1 : 95 bpm Height: 5'8" SpO2: 99% Weight: 227 lbs Functional Status No Functional Status data History of Present Illness Symptom Name Status Result Effective Date Notes sinus congestion Location frontal sinuses 03/25/2018 None [...] data Encounters Encounter Performer Location Codes Date 21563 EST. PATIENT, LEVEL IV Diagnosis: Other acute sinusitis[ICD10: J01.80] Diagnosis: Other allergic rhinitis[ICD10: J30.89] [facility] CPT-4: 49337 03/25/2018 94339 EST. PATIENT, LEVEL III Diagnosis: Other acute sinusitis[ICD10: J01.80] Diagnosis: Other allergic rhinitis[ICD10: J30.89] Diagnosis: Cellulitis of right finger[ICD10: L03.011] Diagnosis: Acute serous otitis media, right ear[ICD10: H65.01] Shobha Jarvis MD [facility] CPT-4: 51481 01/30/2018 99734 EST. PATIENT, LEVEL III Diagnosis: Pain in left knee[ICD10: M25.562] Shobha Jarvis MD [facility] CPT -4: 36417 01/20/2018 47078 EST. PATIENT, LEVEL III Diagnosis: Pain in left knee[ICD10: M25.562] Shboha Jarvis MD [facility] CPT -4: 02431 12/30/2017 63659 EST. PATIENT, LEVEL IV Diagnosis: Pneumonia due to other specified infectious organisms[ICD10: J16.8] Shobha Jarvis MD [facility] CPT-4: 18162 11/27/2017 ([id number]) Miscellaneous no charge Diagnosis: Cellulitis of right lower limb[ICD10: L03.115] Shobha Jarvis MD [facility] CPT-4: 57546 11/19/2017 06192 EST. PATIENT, LEVEL III Diagnosis: Cellulitis of right lower limb[ICD10: L03.115] Shobha Jarvis MD [facility] CPT-4: 58565 11/17/2017 58197 EST. PATIENT, LEVEL IV Diagnosis: Other mucopurulent conjunctivitis, left eye[ICD10: H10.022] Diagnosis: Other allergic rhinitis[ICD10: J30.89] Shobha Jarvis MD [facility] CPT-4: 01641 11/04/2017 27095 EST. PATIENT, LEVEL III Diagnosis: 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[ICD10 : M32.15] Diagnosis: Fever, unspecified[ICD10: R50.9] Shobha Jarvis MD [facility] CPT- 4: 47069 09/22/2017 51655 EST. PATIENT, LEVEL IV Diagnosis: 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[ICD10 : M32.15] Shobha Jarvis MD [facility] CPT-4: 68471 2017 04854 EST. PATIENT, LEVEL IV Diagnosis: Acute suppurative otitis media without spontaneous rupture of ear drum, right ear[ICD10: H66.001] Diagnosis: 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[ICD10 : M32.15] Shobha Jarvis MD, [facility] CPT-4: 25435 2016 75777 EST. PATIENT, LEVEL IV Diagnosis: 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[ICD10 : M32.15] Diagnosis: Hematuria, unspecified[ICD10: R31.9] Diagnosis: Other malaise[ICD10: R53.81] Shobha Jarvis MD, [facility] CPT-4 : 47361 03/27/2017 05295 EST. PATIENT, LEVEL IV Diagnosis: Systemic lupus erythematosus, organ or system involvement unspecified [ICD10: M32.10] Diagnosis: Other fatigue[ICD10: R53.83] Diagnosis: Other malaise[ICD10: R53.81] Diagnosis: Fever, unspecified[ICD10: R50.9] Shobha Jarvis MD, [facility] CPT- 4: 80030 03/04/2017 88944 EST. PATIENT, LEVEL IV Diagnosis: 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[ICD10 : M32.15] Diagnosis: Fever, unspecified[ICD10: R50.9] Shobha Jarvis MD, [facility] CPT- 4: 58737 02/25/2017 80926 EST. PATIENT, LEVEL IV Diagnosis: Other acute sinusitis[ICD10: J01.80] Diagnosis: Acute laryngopharyngitis[ICD10: J06.0] Diagnosis: Other allergic rhinitis[ICD10: J30.89] Shobha Jarvis MD, [facility] CPT-4: 29052 02/20/2017 66818 EST. PATIENT, LEVEL III Diagnosis: 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[ICD10 : M32.15] Shobha Jarvis MD, [facility] CPT-4: 21854 2016 16267 EST. PATIENT, LEVEL III Diagnosis: Systemic lupus erythematosus, organ or system involvement unspecified [ICD10: M32.10] Diagnosis: Paresthesia of skin[ICD10: R20.2] Diagnosis: Dysuria[ICD10: R30.0] Shobha Jarvis MD, [facility] CPT-4: 75093 01/28/2017 80242 EST. PATIENT, LEVEL III Diagnosis: 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[ICD10 : M32.15] Shobha Jarvis MD, [facility] CPT-4: 31364 2016 ([id number]) 23986 EST. PATIENT, LEVEL III Diagnosis: Cough[ICD10: R05] Diagnosis: Acute upper respiratory infection, unspecified[ICD10: J06.9] Ela Jarvis MD, [facility] CPT-4: 47372 10/21/2016 65082 EST. PATIENT, LEVEL IV Diagnosis: Generalized anxiety disorder[ICD10: F41.1] Diagnosis: Systemic lupus erythematosus, organ or system involvement unspecified [ICD10: M32.10] Shobha Jarvis MD, [facility] CPT-4: 59592 09/30/2016 23295 EST. PATIENT, LEVEL IV Diagnosis: Systemic lupus erythematosus, organ or system involvement unspecified [ICD10: M32.10] Shobha Jarvis MD, [facility] CPT-4: 22411 09/17/2016 54156 EST. PATIENT, LEVEL IV Diagnosis: Acute laryngopharyngitis[ICD10: J06.0] Shobha Jarvis MD, [facility] CPT-4: 27835 07/15/2016 03223 EST. PATIENT, LEVEL III Diagnosis: Other acute sinusitis[ICD10: J01.80] Diagnosis: Other allergic rhinitis[ICD10: J30.89] Nancy Jarvis MD, [facility] CPT-4: 32250 07/04/2016 25797 EST. PATIENT, LEVEL IV Diagnosis: Migraine without aura, intractable, without status migrainosus[ICD10 : G43.019] Diagnosis: Paresthesia of skin[ICD10: R20.2] Diagnosis: Dysuria[ICD10: R30.0] Shobha Jarvis MD, [facility] CPT-4: 99137 07/01/2016 88815 EST. PATIENT, LEVEL III Diagnosis: Acute laryngopharyngitis[ICD10: J06.0] Diagnosis: Other acute sinusitis[ICD10: J01.80] Diagnosis: Other allergic rhinitis[ICD10: J30.89] Shobha Jarvis MD, [facility] CPT-4: 28604 06/05/2016 28144 EST. PATIENT, LEVEL III Diagnosis: Other allergic rhinitis[ICD10: J30.89] Shobha Jarvis MD, [facility] CPT-4: 39436 04/02/2016 09324 EST. PATIENT, LEVEL IV Diagnosis: Acute suppurative otitis media without spontaneous rupture of ear drum, bilateral[ICD10: H66.003] Diagnosis: Other acute sinusitis[ICD10: J01.80] Shobha Jarvis MD, [facility] CPT-4: 70673 03/22/2016 16918 EST. PATIENT, LEVEL III Diagnosis: Systemic lupus erythematosus, organ or system involvement unspecified [ICD10: M32.10] Diagnosis: Hypokalemia[ICD10: E87.6] Diagnosis: Dysphagia, oropharyngeal phase[ICD10: R13.12] Shobha Jarvis MD, [facility] CPT-4: 85432 03/05/2016 ([id number]) Miscellaneous no charge Diagnosis: Rash and other nonspecific skin eruption[ICD10: R21] Ela Jarvis MD, [facility] CPT-4: 64256 02/01/2016 ([id number]) 24618 EST. PATIENT, LEVEL III Diagnosis: Acute recurrent maxillary sinusitis[ICD10: J01.01] Ela Jarvis MD, [facility] CPT-4: 57191 01/29/2016 ([id number]) 39267 EST. PATIENT, LEVEL III Diagnosis: Urinary tract infection, site not specified[ICD10: N39.0] Diagnosis: Low back pain[ICD10: M54.5] Ela Jarvis MD [facility] CPT-4: 76686 12/11/2015 43297 EST. PATIENT, LEVEL IV Diagnosis: Other acute sinusitis[ICD10: J01.80] Shobha Jarvis MD, [facility] CPT-4: 68035 11/09/2015 ([id number]) 54633 EST. PATIENT, LEVEL III Diagnosis: Hypokalemia[ICD10: E87.6] Diagnosis: Localized edema[ICD10: R60.0] Ela Jarvis MD, [facility] CPT-4: 39531 09/12/2015 22611 EST. PATIENT, LEVEL III Diagnosis: Impacted cerumen, bilateral[ICD10: H61.23] Diagnosis: Systemic lupus erythematosus, organ or system involvement unspecified [ICD10: M32.10] Shobha Jarvis MD, [facility] CPT-4: 88520 08/28/2015 51494 EST. PATIENT, LEVEL IV Diagnosis: Impacted cerumen, right ear[ICD10: H61.21] Diagnosis: Other hemorrhoids[ICD10: K64.8] Diagnosis: Other constipation[ICD10: K59.09] Shobha Jarvis MD, [facility] CPT -4: 64760 08/11/2015 70004 EST. PATIENT, LEVEL IV Diagnosis: Acute suppurative otitis media without spontaneous rupture of ear drum, bilateral[ICD10: H66.003] Diagnosis: Diffuse otitis externa, bilateral[ICD10: H60.313] Shobha Jarvis MD, [facility] CPT-4: 74646 07/31/2015 30812 EST. PATIENT, LEVEL IV Diagnosis: Systemic lupus erythematosus, organ or system involvement unspecified [ICD10: M32.10] Diagnosis: Pain in unspecified joint[ICD10: M25.50] Diagnosis: Acute laryngopharyngitis[ICD10: J06.0] Shobha Jarvis MD, [facility] CPT-4: 74477 06/12/2015 ([id number]) 50914 EST. PATIENT, LEVEL III Diagnosis: Systemic lupus erythematosus[ICD9: 710.0] Diagnosis: JOINT PAIN-MULT JOINTS[ICD9: 719.49] Nancy Jarvis MD, [facility] CPT-4: 69233 01/20/2015 ([id number]) OFFICE VISIT, NEW - LEVEL 3 Diagnosis: Systemic lupus erythematosus[ICD9: 710.0] Diagnosis: Gastroesophageal reflux[ICD9: 530.81] Ela Jarvis MD, [facility] CPT-4: 44344 10/07/2014 Plan of Care Planned Activity Notes Codes Status Date Visit Plan: Sinusitis - Pt has acute [...] allergy spray. 03/25/2018 Appointment: Shobha Bland WPtel: [facility] [place] (15 min) Moderate 03/25/2018 Patient Education: Patient [...] warmth, discharge. 01/30/2018 Appointment: Shobha Bland WPtel: [facility] [place] (15 min) Moderate 01/30/2018 Patient Education: Patient [...] or concerns. 01/20/2018 Appointment: Shobha Bland WPtel: [facility] [place] (30 min) Complex 01/20/2018 Patient Education: Patient [...] not improve. 12/30/2017 Appointment: Shobha Bland WPtel: [phone] [facility] [place] (30 min) Complex 12/30/2017 Patient Education: Patient Medication Summary Completed 12/30/2017 Care Plan: MRI JNT OF LWR EXTRE W/O DYE Pending 12/30/2017 Care Plan: Referral Order SNOMED-CT : [id number] Pending 12/30/2017 Visit Plan: Pneumonia - Pt has been diagnosed with pneumonia by physical exam. A chest xray has been ordered as have antibiotics. The pt is aware of the diagnosis and the need for acute treatment of this illness. 11/27/2017 Appointment: Shobha Bland WPtel: [phone] [facility] (15 min) Moderate 11/27/2017 Patient Education: Patient Medication Summary Completed 11/27/2017 Care Plan: CHEST X-RAY 2VW FRONTAL&LATL LOINC : 09838-0 Pending 11/27/2017 Appointment: Nurse Visit 11/19/2017 Patient Education: Patient Medication Summary Completed 11/19/2017 Visit Plan: Cellulitis - continue with oral antibiotics as previously directed, return to clinic as previously directed, call for acute change in symptoms, worsening redness, warmth, discharge. 11/17/2017 Appointment: Shobha Bland WPtel: [phone] [facility] [place] (15 min) Moderate 11/17/2017 Patient Education: Patient [...] allergy spray. 11/04/2017 Appointment: Shobha Bland WPtel: [facility] (15 min) Moderate 11/04/2017 Patient Education: Patient Medication Summary Completed 11/04/2017 Appointment: Shobha Bland WPtel: [address] [place] [address] (15 min) Moderate 10/07/2017 Visit Plan: Fevers, lupus - will give 1g Rocephin IM and check labs - defer to specialists. Pt is to notify clinic if symptoms do not improve, if they worsen, or with any changes, questions, or concerns. 09/22/2017 Appointment: Shobha Bland WPtel: [facility] [address] (15 min) Moderate 09/22/2017 Patient Education: Patient Medication Summary Completed 09/22/2017 Visit Plan: Lupus, malaise, tremors, flushing - discussed with Dr. Jarvis, and her specialists at -will start Prednisone taper. Pt is to notify clinic if symptoms do not improve, if they worsen, or with any changes, questions, or concerns. 09/15/2017 Appointment: Shobha Bland WPtel: [facility] [address] (15 min) Moderate 09/15/2017 Patient Education: [...] needed. 04/23/2017 Appointment: Shobha Bland WPtel: [phone] [facility] [place] (30 min) Complex 04/23/2017 Patient Education: Patient Medication Summary Completed 04/23/2017 Visit Plan: Malaise, Lupus - will check UA - Pt is to follow up with her specialists at , she is to update clinic of any changes in her current treatment plan. 03/27/2017 Appointment: Shobha Bland WPtel: [phone] [facility] [place] (30 min) Complex 03/27/2017 Patient Education: Patient [...] plan. 03/04/2017 Appointment: Shobha Bland WPtel: [phone] [facility] [id number] (30 min) Complex 03/04/2017 Patient Education: Patient [...] or concerns. 02/25/2017 Appointment: Shobha Bland WPtel: [address] [place], [place] [id number] Nurse Visit 02/25/2017 Patient Education: Patient Medication [...] or concerns. 01/28/2017 Appointment: Shobha Bland WPtel: [facility] [id number] (15 min) Moderate 01/28/2017 Patient Education: Patient [...] or concerns. 12/13/2016 Appointment: Shobha Bland WPtel: [address] [place], [place] [id number] (15 min) Moderate 12/13/2016 Patient Education: Patient Medication Summary Completed 12/13/2016 Visit Plan: URI - Pt advised to increase fluids, vitamin C. Discussed natural and expected course of this diagnosis and need to alert me if symptoms do not follow expected course, or if any worse. RX sent to patient' s pharmacy. 10/21/2016 Appointment: Ela Dodson WPtel: [facility]3 [phone] [place] (15 min) Moderate 10/21/2016 Patient Education: Patient Medication Summary Completed 10/21/2016 Appointment: Ela Dodson WPtel: [facility]5 [phone] [place] (15 min) Moderate 10/14/2016 Visit Plan: [...] before starting xanax. Lupus - defer to disbursing agent 09/30/2016 Appointment: Shobha Bland WPtel: [phone] [facility] (30 min) Complex 09/30/2016 Patient Education: Patient [...] concerns. 09/17/2016 Appointment: Shobha Bland WPtel: [phone] [phone] (30 min) Complex 09/17/2016 Patient Education: Patient [...] concerns. 07/15/2016 Appointment: Shobha Bland WPtel: [phone] [phone] (30 min) Complex 07/15/2016 Patient Education: Patient [...] allergy spray. 07/04/2016 Appointment: Shobha Bland WPtel: [address] [place], [place] [id number] (15 min) Moderate 07/04/2016 Patient Education: Patient [...] or concerns. 07/01/2016 Appointment: Ela Dodson WPtel: [phone] [place] (10 min) Simple 07/01/2016 Appointment: Shobha Bland WPtel: [facility]5 [phone] [place] (10 min) Simple 07/01/2016 Patient Education: [...] allergy spray. 04/02/2016 Appointment: Ela Dodson WPtel: [address] [place], [place] [phone] (15 min) Moderate 04/02/2016 Patient Education: Patient [...] Medication Summary Completed 03/22/2016 [phone] Ref[facility] Initiated 03/18/2016 Care Plan: Referral Order SNOMED-CT : [id number] Pending 03/14/2016 Visit Plan: Lupus and difficulty [...] dysphagia persists. 03/05/2016 Appointment: Ela Dodson WPtel: [facility]8 [address] (30 min) Complex 03/05/2016 Patient Education: Patient Medication Summary Completed 03/05/2016 Visit Plan: Stitches removed x 2 right upper arm 02/01/2016 Appointment: Ela Dodson WPtel: [phone] (30 min) Complex 02/01/2016 Patient Education: Patient Medication Summary Completed 02/01/2016 Visit Plan: Sinusitis - Pt has acute infection - pain in face, maxillary region, Pt informed to use decongestant, RX given to patient, sinus rinses also recommended. Call if symptoms do not show improvement. 01/29/2016 Appointment: Ela Dodson WPtel: [address] [place], [place] [phone] (30 min) Complex 01/29/2016 Patient Education: Patient [...] plan. 12/11/2015 Appointment: Ela Dodson WPtel: [phone] [phone] (15 min) Moderate 12/11/2015 Patient Education: Patient Medication Summary Completed 12/11/2015 Patient Education: Obesity Completed 12/11/2015 Visit Plan: Sinusitis - Pt has acute infection - pain in face, maxillary region, Pt informed to use decongestant, RX given to patient, sinus rinses also recommended. Call if symptoms do not show improvement. 11/09/2015 Appointment: Ela Dodson WPtel: [phone] [phone] (15 min) Moderate 11/09/2015 Patient Education: Patient [...] during the removal process. 08/28/2015 Appointment: Shobha lBand WPtel: [phone] [phone] (15 min) Moderate 08/28/2015 Patient Education: Patient Medication Summary Completed 08/28/2015 Patient Education: Obesity Completed 08/28/2015 Appointment: Ela Dodson WPtel: [facility] [phone] (30 min) Complex 08/25/2015 Visit Plan: Cerumen [...] [place] Referral Appointment Confirmed Referral: Rojelio Polk [facility]:[phone] [facility] [place] Referral Initiated Instructions Comment . Conjunctivitis [...] if symptoms do not show improvement. . Ongoing left knee pain - pt [...] the nasal steroid allergy spray. . Lupus nephritis-hospital follow up-recent biopsy-patient to follow up at [facility] pain-celebrex d/c'd-start pennsaid . URI - Pt advised to increase [...] worse. RX sent to patient's pharmacy. . Anxiety - the patient has uncontrolled [...] before starting xanax. Lupus - defer to disbursing agent . Lupus - pt sees a specialist [...] patient stabilized during the removal process. . Lupus, fatigue, malaise, sore throat, URI [...] clinic on any change in treatment plan. CONTINUE CARAFATE INCREASE PRILOSEC (OMEPRAZOLE) TO TWICE DAILY CALL IF SYMPTOMS DO NOT RESOLVE . Lupus-sees specialist at -on cellcept-call with any concerns or change GERD-continue carafate-start prilosec BID . Sinusitis - Pt has acute infection [...] for acute treatment of this illness. . Otitis Media - discussed the diagnosis [...] improving or if symptoms worsen acutely. . Fevers, lupus - will give 1g [...] removed x 2 right upper arm . Migraine, parasthesias, malaise - Dr. Jarvis in to see pt, pt given onzetra and phenergan. Pt is to stop her new medication. Pt is to notify clinic if symptoms do not improve, if they worsen, or with any questions or concerns. . Lupus and difficulty swallowing - pt [...] changes in her current treatment plan. . Cellulitis - continue with oral antibiotics [...] is worsening or does not improve. . Migraine, parasthesias, malaise - Dr. Jarvis [...] specialist and adjust treatment plan as needed. 1 Gram of rocephin (antibiotic) today 80mg [...]
--- OUTSIDE RECORDS SUMMARY | 2018-05-10 17:47 | XMS REPORT | CCD ---
Author Author [facility] Address [address] [place] [address] Phone Care Team Providers Care Social Media Senior Associate Name Role Phone PP Unavailable CCM Unavailable Summary Purpose Interface Exchange Insurance Providers Payer name Policy type / Coverage type Covered green party ID Effective Begin Date Effective End Date Blue Cross [facility] Blue Cross/Blue [facility] [id number] 2015 Unknown Family history Brother Diagnosis Age At Onset Asthma Unknown defect Unknown Mother Diagnosis Age At Onset Diabetes mellitus Type 2 Unknown Hypertension Unknown Depression Unknown Hyperlipidemia Unknown Social History Social History Element Codes Description Effective Dates Marital status Unknown Single 09/30/2016 Number of children Unknown 0 10/07/[address]: 791841785 Never smoker 10/07/[address]: 520551025 Never drinks alcohol 10/07/2014 Allergies, Adverse Reactions, [...] Fill Instructions amoxicillin 500 mg capsule RxNorm: 840454 1 Capsule(s) PO TID 03/25/2018 04/03/2018 Active prednisone 10 mg tablet RxNorm: 075586 Tablet(s) PO 03/25/2018 No Stop Date Active 60 ,60,40,40,20,20,10,10 ceftriaxone 500 mg solution for injection RxNorm: 9833250 Inj 03/25/2018 03/25/2018 Inactive Kenalog 40 mg/mL suspension for injection RxNorm: 3235515 Milliliter(s) Inj 03/25/2018 03/25/2018 Inactive Lyrica 100 mg capsule RxNorm: 621153 1 Capsule(s) PO TID and daily PRN 02/10/2018 04/25/2018 Active doxycycline hyclate 100 mg capsule RxNorm: 0062000 1 Capsule(s) PO BID 01/30/2018 02/08/2018 Inactive ceftriaxone 500 mg solution for injection RxNorm: 9691485 2 Milliliter(s) Inj 01/30/2018 01/30/2018 Inactive Lyrica 50 mg capsule RxNorm: 781769 1 Capsule(s) PO TID 201701/29/2018 Inactive Voltaren 1 % topical gel RxNorm: 926467 1 Application TOP TID as needed 12/30/2017 No Stop Date Active tramadol 50 mg tablet RxNorm: 758256 1 Tablet(s) PO BID as needed for pain 12/30/2017 01/03/2018 Inactive Nexium 40 mg capsule,delayed release RxNorm: 116006 TAKE ONE CAPSULE BY MOUTH ONCE DAILY DIRECTED FOR STOMACH 12/09/2017 03/08/2018 Inactive prednisone 10 mg tablet RxNorm: 824563 Tablet(s) PO UD 2017 No Stop Date Active 60,60,50,50,40,40,30,30,20,20,10,10,5 every other day x 2 doses albuterol sulfate 2.5 mg/3 mL (0.083 %) solution for nebulization RxNorm: 422693 3 Milliliter(s) INH UD 11/27/2017 No Stop Date Active cefdinir 300 mg capsule RxNorm: 532375 1 Capsule(s) PO BID 12/06/2017 Inactive ceftriaxone 500 mg solution for injection RxNorm: 4234275 1 Milliliter(s) Inj 11/27/2017 11/27/2017 Inactive Kenalog 40 mg/mL suspension for injection RxNorm: 0229352 1 Milliliter(s) Inj 11/27/2017 11/27/2017 Inactive Zithromax Z-John 250 mg tablet RxNorm: 497001 1 Tablet(s) PO UD 11/27/2017 02/09/2018 Inactive ceftriaxone 500 mg solution for injection RxNorm: 6815353 2 Inj 11/17/2017 11/17/2017 Inactive doxycycline hyclate 100 mg capsule RxNorm: 0360891 1 Capsule(s) PO BID 11/17/2017 11/26/2017 Inactive Flonase Allergy Relief 50 mcg/actuation nasal spray, suspension RxNorm: 3447259 1 [place] NASAL BID as needed 11/04/2017 No Stop Date Active ciprofloxacin 0.3 % eye drops RxNorm: 903475 2 Drop(s) ophthalmic (eye) Q2H while awake x 2 days, then Q4H x 5 days 11/04/2017 No Stop Date Active Lyrica 100 mg capsule RxNorm: 843462 1 Capsule(s) PO TID and daily PRN 10/27/2017 01/23/2018 Inactive Keflex 500 mg capsule RxNorm: 882881 1 Capsule(s) PO TID 201710/09/2017 Inactive Keflex 500 mg capsule RxNorm: 534429 1 Capsule(s) PO TID 201710/02/2017 Inactive ceftriaxone 500 mg solution for injection RxNorm: 3328139 Inj 09/22/2017 09/22/2017 Inactive prednisone 10 mg tablet RxNorm: 617245 Tablet(s) PO 09/15/2017 No Stop Date Active 6, 6,5,5,4,4,3,3,2,2,1,1 then back to 5mg daily Kenalog 40 mg/mL suspension for injection RxNorm: 4521664 1.5 Milliliter(s) Inj 09/15/2017 09/15/2017 Inactive Lyrica 100 mg capsule RxNorm: 705556 1 Capsule(s) PO TID 201710/26/2017 Inactive Lyrica 100 mg capsule RxNorm: 811256 1 Capsule(s) PO TID 201709/21/2017 Inactive Lunesta 1 mg tablet RxNorm: 765115 1 Tablet(s) PO QHS 201706/14/2017 Inactive Lunesta 1 mg tablet RxNorm: 629254 1 Tablet(s) PO QHS 201705/15/2017 Inactive Zithromax Z-John 250 mg tablet RxNorm: 954151 1 Tablet(s) PO UD 04/23/2017 04/27/2017 Inactive Lyrica 100 mg capsule RxNorm: 746230 1 Capsule(s) PO TID 201606/23/2017 Inactive prednisone 20 mg tablet RxNorm: 100194 Tablet(s) PO 60mg x 3 days, then 40mg x 3 days, then 25mg x 3 days, then back to 13mg daily 02/25/2017 No Stop Date Active Levaquin 250 mg tablet RxNorm: 315768 1 Tablet(s) PO daily 03/01/2017 Inactive amoxicillin 500 mg capsule RxNorm: 809393 1 Capsule(s) PO TID 02/20/2017 02/20/2017 Inactive Kenalog 40 mg/mL suspension for injection RxNorm: 2463203 Milliliter(s) Inj 02/20/2017 02/20/2017 Inactive Augmentin 500 mg-125 mg tablet RxNorm: 041375 1 Tablet(s) PO TID 02/20/2017 02/20/2017 Inactive Xanax 0.25 mg tablet RxNorm: 929235 1 Tablet(s) PO TID as needed anxiety 02/05/2017 No Stop Date Active prednisone 5 mg tablet RxNorm: 005380 1 Tablet(s) PO daily to take with the 20mg pill to equal 25mg daily x 2 weeks. 02/04/2017 No Stop Date Active prednisone 20 mg tablet RxNorm: 958360 1 Tablet(s) PO daily to take with the 5mg to equal 25mg daily x 2 weeks. 02/04/2017 No Stop Date Active Kenalog 40 mg/mL suspension for injection RxNorm: 8764709 Milliliter(s) Inj 01/28/2017 01/28/2017 Inactive ceftriaxone 500 mg solution for injection RxNorm: 5687537 Inj 01/28/2017 01/28/2017 Inactive prednisone 20 mg tablet RxNorm: 833801 Tablet(s) PO 60mg x 3 days, then 40mg x 3 days 01/28/2017 02/24/2017 Inactive ceftriaxone 500 mg solution for injection RxNorm: 6473911 Inj 12/13/2016 12/13/2016 Inactive Kenalog 40 mg/mL suspension for injection RxNorm: 5918730 Milliliter(s) Inj 12/13/2016 12/13/2016 Inactive prednisone 20 mg tablet RxNorm: 487718 Tablet(s) PO 60mg x 3 days, then 40mg x 3 days 12/13/2016 01/27/2017 Inactive Zithromax Z-John 250 mg tablet RxNorm: 877054 1 Tablet(s) PO UD 10/21/2016 10/25/2016 Inactive fluoxetine 10 mg tablet RxNorm: 586927 1 Tablet(s) PO BID 09/3008/27/2017 Inactive Xanax 0.25 mg tablet RxNorm: 277407 1 Tablet(s) PO TID as needed anxiety 09/30/2016 02/04/2017 Inactive prednisone 20 mg tablet RxNorm: 981737 Tablet(s) PO 60mg x 1 week, then 40mg x 1 week, then back to 20mg 09/17/2016 No Stop Date Active Kenalog 40 mg/mL suspension for injection RxNorm: 3966306 Milliliter(s) Inj 09/17/2016 09/17/2016 Inactive amoxicillin 500 mg capsule RxNorm: 922336 1 Capsule(s) PO TID 07/15/2016 07/24/2016 Inactive Zithromax Z-John 250 mg tablet RxNorm: 423238 1 Tablet(s) PO UD 07/04/2016 10/20/2016 Inactive promethazine 25 mg/mL injection solution RxNorm: 984076 Milliliter(s) Inj 07/01/2016 07/01/2016 Inactive promethazine 25 mg tablet RxNorm: 395876 1 Tablet(s) PO TID as needed 07/01/2016 07/10/2016 Inactive Flonase Allergy Relief 50 mcg/actuation nasal spray, suspension RxNorm: 0286580 1 [place] NASAL BID 06/05/2016 No Stop Date Active Zithromax Z-John 250 mg tablet RxNorm: 490898 Tablet(s) PO UD 07/03/2016 Inactive amoxicillin 500 mg capsule RxNorm: 507699 1 Capsule(s) PO TID 03/22/2016 04/04/2016 Inactive Kenalog 40 mg/mL suspension for injection RxNorm: 2689574 2 Milliliter(s) Inj 03/22/2016 03/22/2016 Inactive Diflucan 150 mg tablet RxNorm: 963988 1 Tablet(s) PO daily 03/09/2016 Inactive Diflucan 150 mg tablet RxNorm: 062919 1 Tablet(s) PO daily 03/04/2016 Inactive Keflex 500 mg capsule RxNorm: 782714 1 Capsule(s) PO TID 201502/04/2016 Inactive Keflex 500 mg capsule RxNorm: 860318 1 Capsule(s) PO TID 201512/17/2015 Inactive Augmentin 500 mg-125 mg tablet RxNorm: 951655 1 Tablet(s) PO TID 11/09/2015 11/18/2015 Inactive Anusol-HC 25 mg rectal suppository RxNorm: 8887202 1 Suppository RTL daily as needed pain 08/11/2015 No Stop Date Active Miralax 17 gram/dose oral powder RxNorm: 440086 1 taper PO 05/201512/08/2015 Inactive Ciprodex 0.3 %-0.1 % ear drops,suspension RxNorm: 461391 2 Drop(s) OTIC BID 07/31/2015 08/06/2015 Inactive amoxicillin 500 mg capsule RxNorm: 394735 1 Capsule(s) PO TID 07/31/2015 08/09/2015 Inactive Augmentin 500 mg-125 mg tablet RxNorm: 604116 1 Tablet(s) PO TID 07/07/2015 07/16/2015 Inactive Augmentin 500 mg-125 mg tablet RxNorm: 807306 1 Tablet(s) PO TID 07/07/2015 07/06/2015 Inactive Zithromax Z-John 250 mg tablet RxNorm: 236006 Tablet(s) PO UD 08/27/2015 Inactive Pennsaid 20 mg/gram/actuation (2 %) topical soln in metered -dose pump RxNorm: 3716608 2 Application TOP BID 01/20/201502/18 Inactive acetazolamide 250 mg tablet RxNorm: 069376 1 Tablet(s) PO BID 01/20/2015 02/18/2015 Inactive Pennsaid 20 mg/gram/actuation (2 %) topical soln in metered -dose pump RxNorm: 6919310 2 Application TOP BID 01/20/201501/19 Inactive cefuroxime axetil 500 mg tablet RxNorm: 695898 1 Tablet(s) PO BID 12/23/2014 12/22/2014 Inactive cefuroxime axetil 500 mg tablet RxNorm: 898947 1 Tablet(s) PO BID 12/23/2014 01/01/2015 Inactive trazodone 50 mg tablet RxNorm: 598289 1-2 Tablet(s) PO QHS 11/05/2014 Inactive mycophenolate mofetil 500 mg tablet RxNorm: 667919 2 Tablet(s) PO BID No Start Date Active Vitamin D2 50,000 unit capsule RxNorm: 481720 1 Capsule(s) PO QW No Start Date Active sucralfate 1 gram tablet RxNorm: 868273 1 Gram(s) PO QID No Start Date Active ferrous fumarate 325 mg (106 mg iron) tablet RxNorm: 188752 1 Tablet(s) PO daily No Start Date Active aspirin, buffered 81 mg tablet,delayed release RxNorm: 569129 1 Tablet(s) PO daily No Start Date Active potassium chloride ER 20 mEq tablet,extended release RxNorm: 447891 1 Tablet(s) PO BID No Start Date Active Calcium 500 + D (D3) oral RxNorm: 809809 oral No Start Date Active tramadol 50 mg tablet RxNorm: 650243 1 Tablet(s) PO BID as needed No Start Date Active prednisone 10 mg tablet RxNorm: 332967 1 Tablet(s) PO daily No Start Date Active hydroxychloroquine 200 mg tablet RxNorm: 746773 1 Tablet(s) PO BID No Start Date Active tacrolimus 1 mg capsule RxNorm: 774891 1 Capsule(s) PO daily No Start Date 06/23/2016 Inactive amitriptyline 25 mg tablet RxNorm: 580698 1 Tablet(s) PO daily No Start Date 06/11/2015 Inactive Lyrica 75 mg capsule RxNorm: 776035 1 Capsule(s) PO daily No Start Date 02/03/2017 Inactive celecoxib 100 mg capsule RxNorm: 779542 1 Capsule(s) PO daily No Start Date 01/19/2015 Inactive fluoxetine 10 mg tablet RxNorm: 591534 1 Tablet(s) PO daily No Start Date 09/29/2016 Inactive Lyrica 100 mg capsule RxNorm: 106991 1 Capsule(s) PO TID No Start Date 03/26/2017 Inactive Nexium 40 mg capsule,delayed release RxNorm: 311534 1 Capsule(s) PO daily Started by specialist No Start Date 12/08/2017 Inactive Medication Administered Medication Codes Instructions Start Date Status Kenalog 40 mg/mL suspension for injection RxNorm: 0829878 Milliliter 03/25/2018 No longer Active ceftriaxone 500 mg solution for injection RxNorm: 4012843 03/25/2018 No longer Active ceftriaxone 500 mg solution for injection RxNorm: 4522801 2Milliliter 01/30/2018 No longer Active ceftriaxone 500 mg solution for injection RxNorm: 6895260 1Milliliter 11/27/2017 No longer Active Kenalog 40 mg/mL suspension for injection RxNorm: 5425523 1Milliliter 11/27/2017 No longer Active ceftriaxone 500 mg solution for injection RxNorm: 8845473 2 11/17/2017 No longer Active ceftriaxone 500 mg solution for injection RxNorm: 0381302 09/22/2017 No longer Active Kenalog 40 mg/mL suspension for injection RxNorm: 8303000 1.5Milliliter 09/15/2017 No longer Active Kenalog 40 mg/mL suspension for injection RxNorm: 8522263 Milliliter 02/20/2017 No longer Active Kenalog 40 mg/mL suspension for injection RxNorm: 1598831 Milliliter 01/28/2017 No longer Active ceftriaxone 500 mg solution for injection RxNorm: 4415158 01/28/2017 No longer Active Kenalog 40 mg/mL suspension for injection RxNorm: 4606892 Milliliter 12/13/2016 No longer Active ceftriaxone 500 mg solution for injection RxNorm: 4616470 12/13/2016 No longer Active Kenalog 40 mg/mL suspension for injection RxNorm: 1371607 Milliliter 09/17/2016 No longer Active promethazine 25 mg/mL injection solution RxNorm: 871241 Milliliter 07/01/2016 No longer Active Kenalog 40 mg/mL suspension for injection RxNorm: 7070078 2Milliliter 03/22/2016 No longer Active Immunizations Vaccine [...] to follow 09/22/2017 Random Urine Protein/Creatinine Ratio Qqu2882 U Prot 719.0 mg/dl 09/22/2017 Random Urine Protein/Creatinine Ratio Jhm9405 U CREAT 273.0 mg/dL 09/22/2017 Random Urine Protein/Creatinine Ratio Wlf5970 R MTP/Creat Ratio 2.63 09/22/2017 Urine Culture Ucult Complete NO Growth Day 2 09/17/2017 Urine Culture Ucult Preliminary NO Growth Day 1 09/17/2017 Comp Metabolic Cbm968 NA 136 mEq/L 09/16/2017 Comp Metabolic Icz947 K 4.3 mEq/L 09/16/2017 Comp Metabolic Msu958 CL 105 mEq/L 09/16/2017 Comp Metabolic Xix898 CO2 23.0 mEq/L 09/16/2017 Comp Metabolic Dqh518 ANION GAP 12 09/16/2017 Comp Metabolic Ffi949 GLUCOSE 115 mg/dL 09/16/2017 Comp Metabolic Oto047 Creat 1.1 mg/dL 09/16/2017 Comp Metabolic Mnv491 eGFR 68 ml/min/1.73m2 09/16/2017 Comp Metabolic Mot996 BUN 9 mg/dL 09/16/2017 Comp Metabolic Knb645 B/C Ratio 8.3 Ratio 09/16/2017 Comp Metabolic Nvz157 CALCIUM 8.9 mg/dL 09/16/2017 Comp Metabolic Eon291 ALK PHOS 65 U/L 09/16/2017 Comp Metabolic Cyu088 AST(SGOT) 15 U/L 09/16/2017 Comp Metabolic Ttp848 ALT(SGPT) 14 U/L 09/16/2017 Comp Metabolic Wzy908 BILI T 0.4 mg/dL 09/16/2017 Comp Metabolic Pgm601 ALBUMIN 3.5 g/dL 09/16/2017 Comp Metabolic Ogf714 TPRO 6.0 g/dL 09/16/2017 Comp Metabolic Qzi080 GLOB 2.5 g/dL 09/16/2017 Comp Metabolic Zad048 A/G Ratio 1.4 Ratio 09/16/2017 Comp Metabolic Cnj732 Osmo 272 mOsmo 09/16/2017 Random Urine Protein/Creatinine Ratio Yvp5206 U Prot 242.0 mg/dl 09/16/2017 Random Urine Protein/Creatinine Ratio Bqs5359 U CREAT 79.0 mg/dL 09/16/2017 Random Urine Protein/Creatinine Ratio Eoj1226 R MTP/Creat Ratio 3.06 09/16/2017 Urinalysis Ord28 [...] 27.2 % 09/15/2017 Cbc With Differential Ord2 Murray% 11.3 % 09/15/2017 Cbc With Differential Ord2 [...] 2.00 K/ul 09/15/2017 Cbc With Differential Ord2 Murray ABS# 0.8 K/ul 09/15/2017 Cbc With Differential Ord2 Eos ABS# 0.1 K/ul 09/15/2017 Cbc With Differential Ord2 Baso ABS# 0.0 K/ul 09/15/2017 Comp Metabolic Znr611 NA 142 mEq/L 04/23/2017 Comp Metabolic Cco947 K 3.6 mEq/L 04/23/2017 Comp Metabolic Pkd822 CL 108 mEq/L 04/23/2017 Comp Metabolic Xoj635 CO2 23.0 mEq/L 04/23/2017 Comp Metabolic Zok164 ANION GAP 15 04/23/2017 Comp Metabolic Hdb577 GLUCOSE 93 mg/dL 04/23/2017 Comp Metabolic Wki067 Creat 0.9 mg/dL 04/23/2017 Comp Metabolic Xhx596 eGFR 82 ml/min/1.73m2 04/23/2017 Comp Metabolic Xcz437 BUN 10 mg/dL 04/23/2017 Comp Metabolic Hvh606 B/C Ratio 10.9 Ratio 04/23/2017 Comp Metabolic Tgm076 CALCIUM 8.5 mg/dL 04/23/2017 Comp Metabolic Epn000 ALK PHOS 51 U/L 04/23/2017 Comp Metabolic Ygg554 AST(SGOT) 17 U/L 04/23/2017 Comp Metabolic Iqs571 ALT(SGPT) 15 U/L 04/23/2017 Comp Metabolic Wie656 BILI T 0.2 mg/dL 04/23/2017 Comp Metabolic Npl263 ALBUMIN 3.3 g/dL 04/23/2017 Comp Metabolic Fmy065 TPRO 5.7 g/dL 04/23/2017 Comp Metabolic Xjp366 GLOB 2.4 g/dL 04/23/2017 Comp Metabolic Zjy906 A/G Ratio 1.4 Ratio 04/23/2017 Comp Metabolic Jha718 Osmo 282 mOsmo 04/23/2017 Cbc With Differential [...] 78.9 fl 04/23/2017 Cbc With Differential Ord2 MCH 25.1 pg 04/23/2017 Cbc With Differential Ord2 Murray% 9.7 % 04/23/2017 Cbc With Differential Ord2 MCHC 31.7 pg 04/23/2017 Cbc With Differential Ord2 Eos% 2.6 % 04/23/2017 Cbc With Differential Ord2 Baso% 0.3 % 04/23/2017 Cbc With Differential Ord2 PLT 247 K/ul 04/23/2017 Cbc With Differential Ord2 RDW 16.7 % 04/23/2017 Cbc With Differential Ord2 Neut ABS# 3.85 K/ul 04/23/2017 Cbc With Differential Ord2 Lymph ABS# 1.90 K/ul 04/23/2017 Cbc With Differential Ord2 Murray ABS# 0.6 K/ul 04/23/2017 Cbc With Differential Ord2 Eos ABS# 0.2 K/ul 04/23/2017 Cbc With Differential Ord2 Baso ABS# 0.0 K/ul 04/23/2017 Urine Culture Ucult Preliminary NO Growth Day 1 03/31/2017 Urine Culture Ucult Complete NO Growth Day 2 03/31/2017 Random Urine Protein/Creatinine Ratio Sxv3248 U Prot 427.0 mg/dl 03/28/2017 Random Urine Protein/Creatinine Ratio Czn3734 U CREAT 99.0 mg/dL 03/28/2017 Random Urine Protein/Creatinine Ratio Iik6781 R MTP/Creat Ratio 4.31 03/28/2017 Comp Metabolic Ouw211 NA 141 mEq/L 02/04/2017 Comp Metabolic Cay908 K 4.7 mEq/L 02/04/2017 Comp Metabolic Wjp491 CL 108 mEq/L 02/04/2017 Comp Metabolic Noo180 CO2 25.0 mEq/L 02/04/2017 Comp Metabolic Sjp701 ANION GAP 13 02/04/2017 Comp Metabolic Ije100 GLUCOSE 119 mg/dL 02/04/2017 Comp Metabolic Qkm443 Creat 1.1 mg/dL 02/04/2017 Comp Metabolic Yqq978 eGFR 66 ml/min/1.73m2 02/04/2017 Comp Metabolic Kku759 BUN 23 mg/dL 02/04/2017 Comp Metabolic Ibe971 B/C Ratio 20.7 Ratio 02/04/2017 Comp Metabolic Ztn931 CALCIUM 9.3 mg/dL 02/04/2017 Comp Metabolic Aji105 ALK PHOS 66 U/L 02/04/2017 Comp Metabolic Ygh777 AST(SGOT) 11 U/L 02/04/2017 Comp Metabolic Tra104 ALT(SGPT) 12 U/L 02/04/2017 Comp Metabolic Der287 BILI T 0.2 mg/dL 02/04/2017 Comp Metabolic Oec845 ALBUMIN 3.7 g/dL 02/04/2017 Comp Metabolic Wbo839 TPRO 6.0 g/dL 02/04/2017 Comp Metabolic Bzn877 GLOB 2.3 g/dL 02/04/2017 Comp Metabolic Ckq472 A/G Ratio 1.6 Ratio 02/04/2017 Comp Metabolic Jcd512 Osmo 286 mOsmo 02/04/2017 Urinalysis U-Color Yellow [...] 25.2 pg 02/04/2017 Cbc With Differential Ord2 Murray% 4.7 % 02/04/2017 Cbc With Differential Ord2 [...] 1.92 K/ul 02/04/2017 Cbc With Differential Ord2 Murray ABS# 0.7 K/ul 02/04/2017 Cbc With Differential Ord2 Eos ABS# 0.0 K/ul 02/04/2017 Cbc With Differential Ord2 Baso ABS# 0.0 K/ul 02/04/2017 Culture Urine [id number] URINE CULTURE SEE NOTES 02/03/2017 Urine Culture Ucult Complete >100,000 col/ml aerobic growth sent to ref lab 01/31/2017 Comp Metabolic Kkt308 NA 135 mEq/L 01/30/2017 Comp Metabolic Vsn255 K 4.8 mEq/L 01/30/2017 Comp Metabolic Apr564 CL 104 mEq/L 01/30/2017 Comp Metabolic Ffb848 CO2 22.0 mEq/L 01/30/2017 Comp Metabolic Stf377 ANION GAP 14 01/30/2017 Comp Metabolic Sfx036 GLUCOSE 107 mg/dL 01/30/2017 Comp Metabolic Qhv343 Creat 1.4 mg/dL 01/30/2017 Comp Metabolic Qzv177 eGFR 51 ml/min/1.73m2 01/30/2017 Comp Metabolic The008 BUN 24 mg/dL 01/30/2017 Comp Metabolic Vyd589 B/C Ratio 17.3 Ratio 01/30/2017 Comp Metabolic Hgn137 CALCIUM 8.7 mg/dL 01/30/2017 Comp Metabolic Tcs630 ALK PHOS 54 U/L 01/30/2017 Comp Metabolic Aig870 AST(SGOT) 14 U/L 01/30/2017 Comp Metabolic Bkj168 ALT(SGPT) 15 U/L 01/30/2017 Comp Metabolic Ckh526 BILI T 0.2 mg/dL 01/30/2017 Comp Metabolic Rty543 ALBUMIN 3.6 g/dL 01/30/2017 Comp Metabolic Pvs497 TPRO 6.1 g/dL 01/30/2017 Comp Metabolic Opw031 GLOB 2.5 g/dL 01/30/2017 Comp Metabolic Yhx212 A/G Ratio 1.5 Ratio 01/30/2017 Comp Metabolic Xdw197 Osmo 275 mOsmo 01/30/2017 Random Urine Protein/Creatinine Ratio Aju6780 U Prot 115.0 mg/dl 01/30/2017 Random Urine Protein/Creatinine Ratio Ggd3896 U CREAT 135.0 mg/dL 01/30/2017 Random Urine Protein/Creatinine Ratio Nnd9144 R MTP/Creat Ratio 0.85 01/30/2017 Urinalysis Ord28 [...] U-Com Culture to follow 01/30/2017 Comp Metabolic Ywn348 NA 138 mEq/L 01/29/2017 Comp Metabolic Xic654 K 4.6 mEq/L 01/29/2017 Comp Metabolic Rlp590 CL 107 mEq/L 01/29/2017 Comp Metabolic Pkf626 CO2 21.0 mEq/L 01/29/2017 Comp Metabolic Wnc362 ANION GAP 15 01/29/2017 Comp Metabolic Tdz478 GLUCOSE 91 mg/dL 01/29/2017 Comp Metabolic Mkt317 Creat 1.8 mg/dL 01/29/2017 Comp Metabolic Ejn025 eGFR 38 ml/min/1.73m2 01/29/2017 Comp Metabolic Lev144 BUN 26 mg/dL 01/29/2017 Comp Metabolic Akj067 B/C Ratio 14.6 Ratio 01/29/2017 Comp Metabolic Twe380 CALCIUM 8.8 mg/dL 01/29/2017 Comp Metabolic Lqg827 ALK PHOS 58 U/L 01/29/2017 Comp Metabolic Xqf443 AST(SGOT) 14 U/L 01/29/2017 Comp Metabolic Hub195 ALT(SGPT) 14 U/L 01/29/2017 Comp Metabolic Ifx311 BILI T 0.2 mg/dL 01/29/2017 Comp Metabolic Dfi184 ALBUMIN 3.4 g/dL 01/29/2017 Comp Metabolic Erp841 TPRO 5.6 g/dL 01/29/2017 Comp Metabolic Xbu055 GLOB 2.2 g/dL 01/29/2017 Comp Metabolic Vjb028 A/G Ratio 1.6 Ratio 01/29/2017 Comp Metabolic Plb400 Osmo 280 mOsmo 01/29/2017 Cbc With Differential [...] 78.5 fl 01/28/2017 Cbc With Differential Ord2 Murray% 9.6 % 01/28/2017 Cbc With Differential Ord2 [...] 2.46 K/ul 01/28/2017 Cbc With Differential Ord2 Murray ABS# 0.7 K/ul 01/28/2017 Cbc With Differential Ord2 Eos ABS# 0.1 K/ul 01/28/2017 Cbc With Differential Ord2 Baso ABS# 0.0 K/ul 01/28/2017 Urine Culture Ucult Preliminary NO Growth Day 1 09/19/2016 Urine Culture Ucult Complete NO Growth Day 2 09/19/2016 Comp Metabolic Oqp163 NA 140 mEq/L 09/17/2016 Comp Metabolic Tiy602 K 3.8 mEq/L 09/17/2016 Comp Metabolic Gwi399 CL 110 mEq/L 09/17/2016 Comp Metabolic Vno797 CO2 20.0 mEq/L 09/17/2016 Comp Metabolic Cyd461 ANION GAP 14 09/17/2016 Comp Metabolic Als785 GLUCOSE 88 mg/dL 09/17/2016 Comp Metabolic Jee611 Creat 1.3 mg/dL 09/17/2016 Comp Metabolic Jbc389 eGFR 54 ml/min/1.73m2 09/17/2016 Comp Metabolic Mfs950 BUN 14 mg/dL 09/17/2016 Comp Metabolic Unm310 B/C Ratio 10.6 Ratio 09/17/2016 Comp Metabolic Zfu780 CALCIUM 8.1 mg/dL 09/17/2016 Comp Metabolic Grd815 ALK PHOS 59 U/L 09/17/2016 Comp Metabolic Jsz856 AST(SGOT) 19 U/L 09/17/2016 Comp Metabolic Eph657 ALT(SGPT) 18 U/L 09/17/2016 Comp Metabolic Pet714 BILI T 0.3 mg/dL 09/17/2016 Comp Metabolic Bzk614 ALBUMIN 3.0 g/dL 09/17/2016 Comp Metabolic Uiv115 TPRO 5.1 g/dL 09/17/2016 Comp Metabolic Hhg934 GLOB 2.1 g/dL 09/17/2016 Comp Metabolic Qpl624 A/G Ratio 1.4 Ratio 09/17/2016 Comp Metabolic Tor945 Osmo 279 mOsmo 09/17/2016 Hgb & Hct Ord65 HGB 10.3 g/dl 09/17/2016 Hgb & Hct Ord65 HCT 32.2 % 09/17/2016 C RAP A SC [id number] Strep A Negative 07/15/2016 Urine Culture Ucult [...] 88.3 fl 03/22/2016 Cbc With Differential Ord2 Murray% 11.7 % 03/22/2016 Cbc With Differential Ord2 [...] 1.77 K/ul 03/22/2016 Cbc With Differential Ord2 Murray ABS# 0.6 K/ul 03/22/2016 Cbc With Differential Ord2 Eos ABS# 0.0 K/ul 03/22/2016 Cbc With Differential Ord2 Baso ABS# 0.0 K/ul 03/22/2016 Comp Metabolic Bti671 NA 131 mEq/L 03/22/2016 Comp Metabolic Ojw302 K 4.1 mEq/L 03/22/2016 Comp Metabolic Tzg653 CL 106 mEq/L 03/22/2016 Comp Metabolic Erj604 CO2 18.0 mEq/L 03/22/2016 Comp Metabolic Xbd411 ANION GAP 11 03/22/2016 Comp Metabolic Kea367 GLUCOSE 84 mg/dL 03/22/2016 Comp Metabolic Cfm220 Creat 1.6 mg/dL 03/22/2016 Comp Metabolic Rtt693 eGFR 44 ml/min/1.73m2 03/22/2016 Comp Metabolic Mio427 BUN 14 mg/dL 03/22/2016 Comp Metabolic Ehc409 B/C Ratio 8.9 Ratio 03/22/2016 Comp Metabolic Jlu951 CALCIUM 8.2 mg/dL 03/22/2016 Comp Metabolic Yuq873 ALK PHOS 39 U/L 03/22/2016 Comp Metabolic Pbx607 AST(SGOT) 16 U/L 03/22/2016 Comp Metabolic Yvh158 ALT(SGPT) 15 U/L 03/22/2016 Comp Metabolic Jvg713 BILI T 0.3 mg/dL 03/22/2016 Comp Metabolic Ctp173 ALBUMIN 2.6 g/dL 03/22/2016 Comp Metabolic Bdh466 TPRO 4.5 g/dL 03/22/2016 Comp Metabolic Fpf639 GLOB 1.9 g/dL 03/22/2016 Comp Metabolic Rji949 A/G Ratio 1.3 Ratio 03/22/2016 Comp Metabolic Wmm263 Osmo 262 mOsmo 03/22/2016 Magnesium Ord90 Mag [...] 30.2 % 03/05/2016 Cbc With Differential Ord2 Murray% 10.0 % 03/05/2016 Cbc With Differential Ord2 [...] 1.33 K/ul 03/05/2016 Cbc With Differential Ord2 Murray ABS# 0.4 K/ul 03/05/2016 Cbc With Differential Ord2 Eos ABS# 0.0 K/ul 03/05/2016 Cbc With Differential Ord2 Baso ABS# 0.0 K/ul 03/05/2016 Comp Metabolic Pxv987 NA 138 mEq/L 03/05/2016 Comp Metabolic Wqp249 K 3.9 mEq/L 03/05/2016 Comp Metabolic Lgh375 CL 105 mEq/L 03/05/2016 Comp Metabolic Wha889 CO2 27.0 mEq/L 03/05/2016 Comp Metabolic Xpp909 ANION GAP 10 03/05/2016 Comp Metabolic Efj044 GLUCOSE 95 mg/dL 03/05/2016 Comp Metabolic Jkg482 Creat 1.4 mg/dL 03/05/2016 Comp Metabolic Yvx602 eGFR 53 ml/min/1.73m2 03/05/2016 Comp Metabolic Pve635 BUN 20 mg/dL 03/05/2016 Comp Metabolic Yxv663 B/C Ratio 14.7 Ratio 03/05/2016 Comp Metabolic Mtx591 CALCIUM 7.9 mg/dL 03/05/2016 Comp Metabolic Gif865 ALK PHOS 43 U/L 03/05/2016 Comp Metabolic Gat880 AST(SGOT) 14 U/L 03/05/2016 Comp Metabolic Bxf616 ALT(SGPT) 15 U/L 03/05/2016 Comp Metabolic Svs704 BILI T 0.2 mg/dL 03/05/2016 Comp Metabolic Apc204 ALBUMIN 2.2 g/dL 03/05/2016 Comp Metabolic Mte979 TPRO 4.0 g/dL 03/05/2016 Comp Metabolic Mbe744 GLOB 1.9 g/dL 03/05/2016 Comp Metabolic Lob273 A/G Ratio 1.2 Ratio 03/05/2016 Comp Metabolic Rgw658 Osmo 278 mOsmo 03/05/2016 Urine Culture Ucult Preliminary NO Growth Day 1 12/13/2015 Urine Culture Ucult Complete NO Growth Day 2 12/13/2015 C-Reactive Protein Qnt Crqnt CRP 2.3 mg/dl 06/13/2015 Cpk Ord61 CPK 55 U/L 06/13/2015 Comp Metabolic Qll094 NA 137 mEq/L 06/13/2015 Comp Metabolic Kuw707 K 3.7 mEq/L 06/13/2015 Comp Metabolic Vwn809 CL 106 mEq/L 06/13/2015 Comp Metabolic Kso779 CO2 20.0 mEq/L 06/13/2015 Comp Metabolic Myn649 ANION GAP 15 06/13/2015 Comp Metabolic Qsd967 GLUCOSE 89 mg/dL 06/13/2015 Comp Metabolic Imq039 Creat 0.8 mg/dL 06/13/2015 Comp Metabolic Xsr483 eGFR 94 ml/min/1.73m2 06/13/2015 Comp Metabolic Stv182 BUN 11 mg/dL 06/13/2015 Comp Metabolic Ots407 B/C Ratio 13.3 Ratio 06/13/2015 Comp Metabolic Jmy548 CALCIUM 8.3 mg/dL 06/13/2015 Comp Metabolic Cjl295 ALK PHOS 64 U/L 06/13/2015 Comp Metabolic Lat047 AST(SGOT) 15 U/L 06/13/2015 Comp Metabolic Ads155 ALT(SGPT) 15 U/L 06/13/2015 Comp Metabolic Sfy455 BILI T 0.3 mg/dL 06/13/2015 Comp Metabolic Sru688 ALBUMIN 3.0 g/dL 06/13/2015 Comp Metabolic Psw645 TPRO 5.5 g/dL 06/13/2015 Comp Metabolic Ate122 GLOB 2.5 g/dL 06/13/2015 Comp Metabolic Sqg405 A/G Ratio 1.2 Ratio 06/13/2015 Comp Metabolic Oym744 Osmo 273 mOsmo 06/13/2015 Sed Rate Ord21 [...] 28.7 pg 06/13/2015 Cbc With Differential Ord2 Murray% 6.3 % 06/13/2015 Cbc With Differential Ord2 [...] 1.29 K/ul 06/13/2015 Cbc With Differential Ord2 Murray ABS# 0.8 K/ul 06/13/2015 Cbc With Differential [...] CPT-4: J3301 09/15/2017 THER/PROPH/DIAG INJ SC/IM CPT-4: 32141 04/23/2017 TRIAMCINOLONE ACET INJ NOS CPT-4: J3301 04/23/2017 ROCEPHIN, PER 250 MG CPT-4: J0696 04/23/2017 TRIAMCINOLONE ACET INJ NOS CPT-4: J3301 02/20/2017 TRIAMCINOLONE ACET INJ NOS CPT-4: J3301 01/28/2017 ROCEPHIN, PER 250 MG CPT-4: J0696 01/28/2017 TRIAMCINOLONE ACET INJ NOS CPT-4: J3301 12/13/2016 ROCEPHIN, PER 250 MG CPT-4: J0696 12/13/2016 THER/PROPH/DIAG INJ SC/IM CPT-4: 53320 09/17/2016 TRIAMCINOLONE ACET INJ NOS CPT-4: J3301 09/17/2016 PROMETHAZINE HCL INJECTION CPT-4: J2550 07/01/2016 TRIAMCINOLONE ACET INJ NOS CPT-4: J3301 03/22/2016 URINALYSIS NONAUTO W/O SCOPE CPT-4: 48482 12/11/2015 Vital Signs Date Vital 03/25/2018 Blood Pressure 1: 132/86 Code : 8480-6 BMI: 44.9 Code : 90281-2 Heart Rate 1 : 73 bpm Height: 5'8" SpO2: 97% Temperature: 37.3 (C) / 99.1 (F) Weight: 295 lbs 01/30/2018 Blood Pressure 1: 150/96 Code : 8480-6 Blood Pressure 1: 170/92 Code: 8480-6 BMI: 45.0 Code: 96005-9 Heart Rate 1: 81 bpm Height: 5'8" SpO2: 98% Weight: 296 lbs 01/20/2018 Blood Pressure 1: 148/88 Code : 8480-6 BMI: 45.0 Code : 34380-7 Heart Rate 1 : 104 bpm Height: 5'8" SpO2: 97% Weight: 296 lbs 12/30/2017 Blood Pressure 1: 140/90 Code : 8480-6 Blood Pressure 1: 164/88 Code: 8480-6 BMI: 45.0 Code: 31373-3 Heart Rate 1: 88 bpm Height: 5'8" SpO2: 97% Weight: 296 lbs 11/27/2017 Blood Pressure 1: 128/72 Code : 8480-6 Heart Rate 1: 102 bpm Height: SpO2: 98% Weight: 11/19/2017 BMI: 44.2 Code: 01663-3 Height: 5'8" Weight: 291 lbs 11/17/2017 Blood Pressure 1: 126/72 Code : 8480-6 BMI: 44.2 Code : 27869-4 Heart Rate 1 : 98 bpm Height: 5'8" SpO2: 98% Weight: 291 lbs 11/04/2017 Blood Pressure 1: 134/80 Code : 8480-6 Heart Rate 1: 96 bpm Height: SpO2: 98% Weight: 09/22/2017 Blood Pressure 1: 124/70 Code : 8480-6 Heart Rate 1: 98 bpm SpO2: 98% Temperature: 37.2 (C) / 98.9 (F) 09/15/2017 Blood Pressure 1: 128/78 Code : 8480-6 BMI: 43.5 Code : 80498-4 Heart Rate 1 : 104 bpm Height: 5'8" SpO2: 98% Weight: 286 lbs 04/23/2017 Blood Pressure 1: 120/78 Code : 8480-6 BMI: 44.1 Code : 86040-1 Heart Rate 1 : 102 bpm Height: 5'8" SpO2: 98% Temperature: 37.3 (C) / 99.1 (F) Weight: 290 lbs 03/27/2017 Blood Pressure 1: 138/76 Code : 8480-6 Heart Rate 1: 84 bpm Height: SpO2: 96% Temperature: 37.3 (C) / 99.2 (F) Weight: 03/04/2017 Blood Pressure 1: 132/84 Code : 8480-6 BMI: 42.6 Code : 96259-0 Heart Rate 1 : 73 bpm Height: [...] Code : 8480-6 BMI: 42.6 Code : 69102-5 Heart Rate 1 : 92 bpm Height: 5'8" SpO2: 99% Temperature: 37.4 (C) / 99.4 (F) Weight: 280 lbs 01/28/2017 Blood Pressure 1: 128/60 Code : 8480-6 BMI: 42.6 Code : 57586-6 Heart Rate 1 : 78 bpm Height: 5'8" SpO2: 97% Weight: 280 lbs 12/13/2016 Blood Pressure 1: 144/82 Code : 8480-6 BMI: 42.1 Code : 89227-5 Heart Rate 1 : 77 bpm Height: 5'8" SpO2: 98% Weight: 277 lbs 10/21/2016 Blood Pressure 1: 136/84 Code : 8480-6 Heart Rate 1: 63 bpm Height: 5'8" SpO2: 98% Temperature: 37.3 (C) / 99.1 (F) Weight: 09/30/2016 Blood Pressure 1: 128/74 Code : 8480-6 BMI: 41.1 Code : 26803-7 Heart Rate 1 : 65 bpm Height: 5'8" SpO2: 99% Weight: 270 lbs 09/17/2016 Blood Pressure 1: 162/72 Code : 8480-6 BMI: 41.1 Code : 73704-5 Heart Rate 1 : 86 bpm Height: 5'8" SpO2: 92% Weight: 270 lbs 07/15/2016 Blood Pressure 1: 122/64 Code : 8480-6 BMI: 39.5 Code : 80148-3 Heart Rate 1 : 89 bpm Height: 5'8" SpO2: 98% Temperature: 37.2 (C) / 99.0 (F) Weight: 260 lbs 07/04/2016 Blood Pressure 1: 136/82 Code : 8480-6 Heart Rate 1: 104 bpm Height: SpO2: 98% Weight: 07/01/2016 Blood Pressure 1: 138/72 Code : 8480-6 Heart Rate 1: 101 bpm SpO2: 98% 06/05/2016 Blood Pressure 1: 132/82 Code : 8480-6 BMI: 38.6 Code : 80708-0 Heart Rate 1 : 98 bpm Height: 5'8" SpO2: 97% Temperature: 36.8 (C) / 98.2 (F) Weight: 254 lbs 04/02/2016 Blood Pressure 1: 148/92 Code : 8480-6 BMI: 40.3 Code : 89795-9 Heart Rate 1 : 112 bpm Height: 5'8" SpO2: 98% Weight: 265 lbs 03/22/2016 Blood Pressure 1: 134/72 Code : 8480-6 BMI: 40.3 Code : 84304-1 Heart Rate 1 : 120 bpm Height: 5'8" SpO2: 98% Temperature: 38.7 (C) / 101.6 (F) Weight: 265 lbs 03/05/2016 Blood Pressure 1: 144/66 Code : 8480-6 BMI: 40.4 Code : 83907-9 Heart Rate 1 : 82 bpm Height: 5'8" SpO2: 92% Weight: 266 lbs 01/29/2016 Blood Pressure 1: 128/86 Code : 8480-6 BMI: 42.4 Code : 44149-8 Heart Rate 1 : 95 bpm Height: 5'8" SpO2: 96% Temperature: 37.5 (C) / 99.5 (F) Weight: 279 lbs 12/11/2015 Blood Pressure 1: 130/80 Code : 8480-6 BMI: 41.7 Code : 54170-3 Heart Rate 1 : 79 bpm Height: 5'8" SpO2: 96% Weight: 274 lbs 11/09/2015 Blood Pressure 1: 136/80 Code : 8480-6 BMI: 38.8 Code : 28155-1 Heart Rate 1 : 80 bpm Height: 5'8" SpO2: 99% Weight: 255 lbs 09/12/2015 Blood Pressure 1: 158/88 Code : 8480-6 BMI: 38.6 Code : 48811-0 Heart Rate 1 : 83 bpm Height: 5'8" SpO2: 98% Weight: 254 lbs 08/28/2015 Blood Pressure 1: 138/84 Code : 8480-6 BMI: 36.8 Code : 97331-6 Heart Rate 1 : 128 bpm Height: 5'8" SpO2: 99% Weight: 242 lbs 08/11/2015 Blood Pressure 1: 140/96 Code : 8480-6 BMI: 37.7 Code : 96574-5 Heart Rate 1 : 93 bpm Height: 5'8" SpO2: 98% Weight: 248 lbs 07/31/2015 Blood Pressure 1: 160/80 Code : 8480-6 BMI: 37.7 Code : 23503-1 Heart Rate 1 : 122 bpm Height: 5'8" SpO2: 98% Temperature: 37.2 (C) / 98.9 (F) Weight: 248 lbs 06/12/2015 Blood Pressure 1: 134/82 Code : 8480-6 BMI: 36.2 Code : 32762-0 Heart Rate 1 : 102 bpm Height: 5'8" SpO2: 99% Weight: 238 lbs 01/20/2015 Blood Pressure 1: 13282 Code : 8480-6 BMI: 35.6 Code : 32044-2 Heart Rate 1 : 84 bpm Height: 5'8" SpO2: 96% Weight: 234 lbs 10/07/2014 Blood Pressure 1: 132 Code : 8480-6 BMI: 34.5 Code : 42601-2 Heart Rate 1 : 95 bpm Height: [...] data Encounters Encounter Performer Location Codes Date 81379 EST. PATIENT, LEVEL IV Diagnosis: Other acute sinusitis[ICD10: J01.80] Diagnosis: Other allergic rhinitis[ICD10: J30.89] [facility] CPT-4: 50580 03/25/2018 [id number] EST. PATIENT, LEVEL III Diagnosis: Other acute sinusitis[ICD10: J01.80] Diagnosis: Other allergic rhinitis[ICD10: J30.89] Diagnosis: Cellulitis of right finger[ICD10: L03.011] Diagnosis: Acute serous otitis media, right ear[ICD10: H65.01] Shobha Jarvis MD [facility] CPT-4: 59983 01/30/2018 56837 EST. PATIENT, LEVEL III Diagnosis: Pain in left knee[ICD10: M25.562] Shobha Jarvis MD [facility] CPT -4: 65196 01/20/2018 47104 EST. PATIENT, LEVEL III Diagnosis: Pain in left knee[ICD10: M25.562] Shobha Jarvis MD [facility] CPT -4: 25132 12/30/2017 76412 EST. PATIENT, LEVEL IV Diagnosis: Pneumonia due to other specified infectious organisms[ICD10: J16.8] Shobha Jarvis MD [facility] CPT-4: 08457 11/27/2017 ([id number]) Miscellaneous no charge Diagnosis: Cellulitis of right lower limb[ICD10: L03.115] Shobha Jarvis MD [facility] CPT-4: 10808 11/19/2017 09213 EST. PATIENT, LEVEL III Diagnosis: Cellulitis of right lower limb[ICD10: L03.115] Shobha Jarvis MD [facility] CPT-4: 97533 11/17/2017 00582 EST. PATIENT, LEVEL IV Diagnosis: Other mucopurulent conjunctivitis, left eye[ICD10: H10.022] Diagnosis: Other allergic rhinitis[ICD10: J30.89] Shobha Jarvis MD [facility] CPT-4: 63906 11/04/2017 10538 EST. PATIENT, LEVEL III Diagnosis: 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[ICD10 : M32.15] Diagnosis: Fever, unspecified[ICD10: R50.9] Shobha Jarvis MD [facility] CPT- 4: 43390 09/22/2017 45981 EST. PATIENT, LEVEL IV Diagnosis: 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[ICD10 : M32.15] Shobha Jarvis MD [facility] CPT-4: 93949 2017 70460 EST. PATIENT, LEVEL IV Diagnosis: Acute suppurative otitis media without spontaneous rupture of ear drum, right ear[ICD10: H66.001] Diagnosis: 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[ICD10 : M32.15] Shobha Jarvis MD, [facility] CPT-4: 56500 2016 37130 EST. PATIENT, LEVEL IV Diagnosis: 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[ICD10 : M32.15] Diagnosis: Hematuria, unspecified[ICD10: R31.9] Diagnosis: Other malaise[ICD10: R53.81] Shobha Jarvis MD, [facility] CPT-4 : 64756 03/27/2017 14387 EST. PATIENT, LEVEL IV Diagnosis: Systemic lupus erythematosus, organ or system involvement unspecified [ICD10: M32.10] Diagnosis: Other fatigue[ICD10: R53.83] Diagnosis: Other malaise[ICD10: R53.81] Diagnosis: Fever, unspecified[ICD10: R50.9] Shobha Jarvis MD, [facility] CPT- 4: 92215 03/04/2017 60060 EST. PATIENT, LEVEL IV Diagnosis: 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[ICD10 : M32.15] Diagnosis: Fever, unspecified[ICD10: R50.9] Shobha Jarvis MD, [facility] CPT- 4: 94680 02/25/2017 85682 EST. PATIENT, LEVEL IV Diagnosis: Other acute sinusitis[ICD10: J01.80] Diagnosis: Acute laryngopharyngitis[ICD10: J06.0] Diagnosis: Other allergic rhinitis[ICD10: J30.89] Shobha Jarvis MD, [facility] CPT-4: 46530 02/20/2017 96963 EST. PATIENT, LEVEL III Diagnosis: 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[ICD10 : M32.15] Shobha Jarvis MD, [facility] CPT-4: 25193 2016 80846 EST. PATIENT, LEVEL III Diagnosis: Systemic lupus erythematosus, organ or system involvement unspecified [ICD10: M32.10] Diagnosis: Paresthesia of skin[ICD10: R20.2] Diagnosis: Dysuria[ICD10: R30.0] Shobha Jarvis MD, [facility] CPT-4: 26611 01/28/2017 70554 EST. PATIENT, LEVEL III Diagnosis: 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[ICD10 : M32.15] Shobha Jarvis MD, [facility] CPT-4: 63906 2016 ([id number]) 08841 EST. PATIENT, LEVEL III Diagnosis: Cough[ICD10: R05] Diagnosis: Acute upper respiratory infection, unspecified[ICD10: J06.9] Ela Jarvis MD, [facility] CPT-4: 60391 10/21/2016 05623 EST. PATIENT, LEVEL IV Diagnosis: Generalized anxiety disorder[ICD10: F41.1] Diagnosis: Systemic lupus erythematosus, organ or system involvement unspecified [ICD10: M32.10] Shobha Jarvis MD, [facility] CPT-4: 46166 09/30/2016 98632 EST. PATIENT, LEVEL IV Diagnosis: Systemic lupus erythematosus, organ or system involvement unspecified [ICD10: M32.10] Shobha Jarvis MD, [facility] CPT-4: 78755 09/17/2016 61787 EST. PATIENT, LEVEL IV Diagnosis: Acute laryngopharyngitis[ICD10: J06.0] Shobha Jarvis MD, [facility] CPT-4: 75478 07/15/2016 40957 EST. PATIENT, LEVEL III Diagnosis: Other acute sinusitis[ICD10: J01.80] Diagnosis: Other allergic rhinitis[ICD10: J30.89] Nancy Jarvis MD, [facility] CPT-4: 39669 07/04/2016 37140 EST. PATIENT, LEVEL IV Diagnosis: Migraine without aura, intractable, without status migrainosus[ICD10 : G43.019] Diagnosis: Paresthesia of skin[ICD10: R20.2] Diagnosis: Dysuria[ICD10: R30.0] Shobha Jarvis MD, [facility] CPT-4: 74974 07/01/2016 95404 EST. PATIENT, LEVEL III Diagnosis: Acute laryngopharyngitis[ICD10: J06.0] Diagnosis: Other acute sinusitis[ICD10: J01.80] Diagnosis: Other allergic rhinitis[ICD10: J30.89] Shobha Jarvis MD, [facility] CPT-4: 77983 06/05/2016 93309 EST. PATIENT, LEVEL III Diagnosis: Other allergic rhinitis[ICD10: J30.89] Shobha Jarvis MD, [facility] CPT-4: 17217 04/02/2016 86510 EST. PATIENT, LEVEL IV Diagnosis: Acute suppurative otitis media without spontaneous rupture of ear drum, bilateral[ICD10: H66.003] Diagnosis: Other acute sinusitis[ICD10: J01.80] Shobha Jarvis MD, [facility] CPT-4: 21367 03/22/2016 80481 EST. PATIENT, LEVEL III Diagnosis: Systemic lupus erythematosus, organ or system involvement unspecified [ICD10: M32.10] Diagnosis: Hypokalemia[ICD10: E87.6] Diagnosis: Dysphagia, oropharyngeal phase[ICD10: R13.12] Shobha Jarvis MD, [facility] CPT-4: 82227 03/05/2016 ([id number]) Miscellaneous no charge Diagnosis: Rash and other nonspecific skin eruption[ICD10: R21] Ela Jarvis MD, [facility] CPT-4: 29322 02/01/2016 ([id number]) 01190 EST. PATIENT, LEVEL III Diagnosis: Acute recurrent maxillary sinusitis[ICD10: J01.01] Ela Jarvis MD, [facility] CPT-4: 00965 01/29/2016 ([id number]) 35673 EST. PATIENT, LEVEL III Diagnosis: Urinary tract infection, site not specified[ICD10: N39.0] Diagnosis: Low back pain[ICD10: M54.5] Ela Jarvis MD [facility] CPT-4: 31159 12/11/2015 70246 EST. PATIENT, LEVEL IV Diagnosis: Other acute sinusitis[ICD10: J01.80] Shobha Jarvis MD, [facility] CPT-4: 80532 11/09/2015 ([id number]) 21362 EST. PATIENT, LEVEL III Diagnosis: Hypokalemia[ICD10: E87.6] Diagnosis: Localized edema[ICD10: R60.0] Ela Jarvis MD, [facility] CPT-4: 11333 09/12/2015 70390 EST. PATIENT, LEVEL III Diagnosis: Impacted cerumen, bilateral[ICD10: H61.23] Diagnosis: Systemic lupus erythematosus, organ or system involvement unspecified [ICD10: M32.10] Shobha Jarvis MD, [facility] CPT-4: 97756 08/28/2015 72898 EST. PATIENT, LEVEL IV Diagnosis: Impacted cerumen, right ear[ICD10: H61.21] Diagnosis: Other hemorrhoids[ICD10: K64.8] Diagnosis: Other constipation[ICD10: K59.09] Shobha Jarvis MD, [facility] CPT -4: 88867 08/11/2015 90301 EST. PATIENT, LEVEL IV Diagnosis: Acute suppurative otitis media without spontaneous rupture of ear drum, bilateral[ICD10: H66.003] Diagnosis: Diffuse otitis externa, bilateral[ICD10: H60.313] Shobha Jarvis MD, [facility] CPT-4: 84405 07/31/2015 08042 EST. PATIENT, LEVEL IV Diagnosis: Systemic lupus erythematosus, organ or system involvement unspecified [ICD10: M32.10] Diagnosis: Pain in unspecified joint[ICD10: M25.50] Diagnosis: Acute laryngopharyngitis[ICD10: J06.0] Shobha Jarvis MD, [facility] CPT-4: 51840 06/12/2015 ([id number]) 01478 EST. PATIENT, LEVEL III Diagnosis: Systemic lupus erythematosus[ICD9: 710.0] Diagnosis: JOINT PAIN-MULT JOINTS[ICD9: 719.49] Nancy Jarvis MD, [facility] CPT-4: 92497 01/20/2015 ([id number]) OFFICE VISIT, NEW - LEVEL 3 Diagnosis: Systemic lupus erythematosus[ICD9: 710.0] Diagnosis: Gastroesophageal reflux[ICD9: 530.81] Ela Jarvis MD, [facility] CPT-4: 34662 10/07/2014 Plan of Care Planned Activity Notes [...] allergy spray. 03/25/2018 Appointment: Shobha Bland WPtel: [facility] (15 min) Moderate 03/25/2018 Patient Education: Patient [...] warmth, discharge. 01/30/2018 Appointment: Shobha Bland WPtel: [facility] (15 min) Moderate 01/30/2018 Patient Education: Patient [...] or concerns. 01/20/2018 Appointment: Shobha Bland WPtel: [facility] (30 min) Complex 01/20/2018 Patient Education: Patient [...] not improve. 12/30/2017 Appointment: Shobha Bland WPtel: [phone] (30 min) Complex 12/30/2017 Patient Education: Patient Medication Summary Completed 12/30/2017 Care Plan: MRI JNT OF LWR EXTRE W/O DYE Pending 12/30/2017 Care Plan: Referral Order SNOMED-CT : [id number] Pending 12/30/2017 Visit Plan: Pneumonia - Pt has been diagnosed with pneumonia by physical exam. A chest xray has been ordered as have antibiotics. The pt is aware of the diagnosis and the need for acute treatment of this illness. 11/27/2017 Appointment: Shobha Bland WPtel: [phone] [facility] (15 min) Moderate 11/27/2017 Patient Education: Patient Medication Summary Completed 11/27/2017 Care Plan: CHEST X-RAY 2VW FRONTAL&LATL LOINC : 89041-9 Pending 11/27/2017 Appointment: Nurse Visit 11/19/2017 Patient Education: Patient Medication Summary Completed 11/19/2017 Visit Plan: Cellulitis - continue with oral antibiotics as previously directed, return to clinic as previously directed, call for acute change in symptoms, worsening redness, warmth, discharge. 11/17/2017 Appointment: Shobha Bland WPtel: [phone] [facility] (15 min) Moderate 11/17/2017 Patient Education: Patient [...] allergy spray. 11/04/2017 Appointment: Shobha Bland WPtel: [facility] (15 min) Moderate 11/04/2017 Patient Education: Patient Medication Summary Completed 11/04/2017 Appointment: Shobha Bland WPtel: [address] [place] [address] (15 min) Moderate 10/07/2017 Visit Plan: Fevers, lupus - will give 1g Rocephin IM and check labs - defer to specialists. Pt is to notify clinic if symptoms do not improve, if they worsen, or with any changes, questions, or concerns. 09/22/2017 Appointment: Shobha Bland WPtel: [facility] (15 min) Moderate 09/22/2017 Patient Education: Patient Medication Summary Completed 09/22/2017 Visit Plan: Lupus, malaise, tremors, flushing - discussed with Dr. Jarvis, and her specialists at -will start Prednisone taper. Pt is to notify clinic if symptoms do not improve, if they worsen, or with any changes, questions, or concerns. 09/15/2017 Appointment: Shobha Bland WPtel: [facility] (15 min) Moderate 09/15/2017 Patient Education: [...] needed. 04/23/2017 Appointment: Shobha Bland WPtel: [phone] [facility] (30 min) Complex 04/23/2017 Patient Education: Patient Medication Summary Completed 04/23/2017 Visit Plan: Malaise, Lupus - will check UA - Pt is to follow up with her specialists at , she is to update clinic of any changes in her current treatment plan. 03/27/2017 Appointment: Shobha Bland WPtel: [phone] [facility] (30 min) Complex 03/27/2017 Patient Education: Patient [...] plan. 03/04/2017 Appointment: Shobha Bland WPtel: [phone] [facility] (30 min) Complex 03/04/2017 Patient Education: Patient [...] or concerns. 02/25/2017 Appointment: Shobha Bland WPtel: [address] [place] [address] Nurse Visit 02/25/2017 Patient Education: Patient Medication [...] or concerns. 01/28/2017 Appointment: Shobha Bland WPtel: [facility] (15 min) Moderate 01/28/2017 Patient Education: Patient [...] or concerns. 12/13/2016 Appointment: Shobha Bland WPtel: [address] [place] [address] (15 min) Moderate 12/13/2016 Patient Education: Patient Medication Summary Completed 12/13/2016 Visit Plan: URI - Pt advised to increase fluids, vitamin C. Discussed natural and expected course of this diagnosis and need to alert me if symptoms do not follow expected course, or if any worse. RX sent to patient' s pharmacy. 10/21/2016 Appointment: Ela Dodson WPtel: [facility]0 [phone] [place] (15 min) Moderate 10/21/2016 Patient Education: Patient Medication Summary Completed 10/21/2016 Appointment: Ela Dodson WPtel: [facility]5 [phone] [place] (15 min) Moderate [...] before starting xanax. 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 09/17/2016 Appointment: Shobha Bland WPtel: [phone] [facility] (30 min) Complex 09/17/2016 Patient Education: Patient [...] Shobha Bland WPtel: [phone] [facility] (30 min) Complex 07/15/2016 Patient Education: Patient [...] allergy spray. 07/04/2016 Appointment: Shobha Bland WPtel: [address] [place], [place] [address] (15 min) Moderate 07/04/2016 Patient Education: Patient [...] or concerns. 07/01/2016 Appointment: Ela Dodson WPtel: [facility]2 [phone] [place] (10 min) Simple 07/01/2016 Appointment: Shobha Bland WPtel: [facility]5 [facility] [place] (10 min) Simple 07/01/2016 Patient Education: [...] allergy spray. 04/02/2016 Appointment: Ela Dodson WPtel: [address] [place] [address] (15 min) Moderate 04/02/2016 Patient Education: Patient [...] Completed 03/22/2016 [phone] Referral Initiated 03/18/2016 Care Plan: Referral Order SNOMED-CT : [id number] Pending 03/14/2016 Visit Plan: Lupus and difficulty [...] dysphagia persists. 03/05/2016 Appointment: Ela Dodson WPtel: [facility]7 [address] (30 min) Complex 03/05/2016 Patient Education: Patient Medication Summary Completed 03/05/2016 Visit Plan: Stitches removed x 2 right upper arm 02/01/2016 Appointment: Ela Dodson WPtel: [facility]2 [phone] (30 min) Complex 02/01/2016 Patient Education: Patient Medication Summary Completed 02/01/2016 Visit Plan: Sinusitis - Pt has acute infection - pain in face, maxillary region, Pt informed to use decongestant, RX given to patient, sinus rinses also recommended. Call if symptoms do not show improvement. 01/29/2016 Appointment: Ela Dodson WPtel: [address] [place], [place] [phone] (30 min) Complex 01/29/2016 Patient Education: Patient [...] 1015 [phone] (15 min) Moderate 11/09/2015 Patient Education: Patient [...] Shobha Bland WPtel: [phone] [facility] (15 min) Moderate 08/28/2015 Patient Education: Patient Medication Summary Completed 08/28/2015 Patient Education: Obesity Completed 08/28/2015 Appointment: Ela Dodson WPtel: [phone] (30 min) Complex 08/25/2015 Visit Plan: Cerumen [...] [place]dh[place] Referral Appointment Confirmed Referral: Rojelio Polk [facility]:[phone] [facility] [place] Referral Initiated Instructions Comment . Conjunctivitis [...] before starting xanax. 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 Otitis Media - discussed the diagnosis [...] improving or if symptoms worsen acutely. . Sinusitis - Pt has acute infection [...] in the nasal steroid allergy spray. Will check chest x-ray today Steroid and [...]
[2018-05-10 18:40] LABS: BILIRUBIN,URINE NEGATIVE (NEGATIVE); CLARITY,URINE CLEAR; COLOR,URINE YELLOW; GLUCOSE, URINE (UA) NEGATIVE (NEGATIVE); KETONES,URINE NEGATIVE (NEGATIVE); LEUKOCYTE ESTERASE ,URINE NEGATIVE (NEGATIVE); NITRITE,URINE NEGATIVE (NEGATIVE); PH,URINE 6 (5-9); PROTEIN,URINE 4+ (NEGATIVE); UROBILINOGEN,URINE NORMAL (NORMAL)
[2018-05-10 18:41] LABS: BASOPHILS # (AUTO) 0.1 10^3/uL (0.0-0.1); BASOPHILS % (AUTO) 1 % (0-10); EOSINOPHILS # (AUTO) 0.1 10^3/uL (0.0-0.3); EOSINOPHILS % (AUTO) 1 % (0-10); HEMATOCRIT 38 % (35-52); HEMOGLOBIN 12.4 G/DL (11.5-16.0); LYMPHOCYTES # (AUTO) 2.7 X 10^3 (1.0-4.0); LYMPHOCYTES % (AUTO) 33 % (12-44); MEAN CORPUSCULAR HEMOGLOBIN 26 PG (25-34); MEAN CORPUSCULAR HGB CONC 32 G/DL (32-36); MEAN CORPUSCULAR VOLUME 79 FL (80-99); MEAN PLATELET VOLUME 10.2 FL (7.4-10.4); MONOCYTES % (AUTO) 11 % (0-12); NEUTROPHILS # (AUTO) 4.6 X 10^3 (1.8-7.8); NEUTROPHILS % (AUTO) 55 % (42-75); PLATELET COUNT 307 10^3/uL (130-400); RED BLOOD COUNT 4.87 10^6/uL (4.35-5.85); RED CELL DISTRIBUTION WIDTH 16.7 % (10.0-14.5); WHITE BLOOD COUNT 8.4 10^3/uL (4.3-11.0)
[2018-05-10 18:56] LABS: BACTERIA,URINE FEW /HPF
[2018-05-10 19:00] LABS: ALBUMIN 3.6 GM/DL (3.2-4.5); BILIRUBIN,TOTAL 0.3 MG/DL (0.1-1.0); CALCIUM 9.1 MG/DL (8.5-10.1); CREATININE SERUM 1.28 MG/DL (0.60-1.30); MAGNESIUM 2.3 MG/DL (1.8-2.4); POTASSIUM 3.6 MMOL/L (3.6-5.0); TOTAL PROTEIN 7.2 GM/DL (6.4-8.2)
[2018-05-10] MEDS ORDERED: methylPREDNISolone 125 MG (Solu-MEDROL) VIAL IV STA (19:03)
[2018-05-10] MEDS ORDERED: LACTATED RINGERS 1,000 ML IV ONE (19:03)
[2018-05-10] MEDS ORDERED: ONDANSETRON 4 MG/2 ML (SDV) Z0FRAN IVP ONE (19:15)
[2018-05-10 19:19] LABS: TSH (THYROID ANALYZER) 3.32 UIU/ML (0.35-4.94)
[2018-05-10 19:20] LABS: ERYTHROCYTE SEDIMENTATION RATE 44 MM/HR (0-20)
[2018-05-10] MEDS ORDERED: PROMETHAZINE INJ 25 MG/ML (PHENERGAN) AMP IVP STA (20:09)
[2018-05-10] MEDS ORDERED: ORPHENADRINE 60 MG/2 ML (NORFLEX) AMP IV STA (20:09)
--- NOTE | 2018-05-10 20:50 | Diagnostic Imaging Report ---
INDICATION: History of lupus, muscle spasms, chest tightness, nausea and vomiting. Fatigue. TECHNIQUE: Two view chest 8:51 PM CORRELATION STUDY: 04/20/2018 FINDINGS: Right IJ Cepbew-e-Juym catheter unchanged. Heart size appears to be mildly enlarged but overall stable. Vasculature within normal limits. Unchanged slight asymmetric elevation of the right diaphragm. No infiltrate. Metallic density superimposed over lower mid chest likely overlying and/or artifactual. Visualized osseous structures are unremarkable. IMPRESSION: 1. Generally stable chest demonstrates no acute abnormality. Dictated by: Dictated on workstation # [id number]
--- NOTE | 2018-05-10 21:05 | ED General ---
General Chief Complaint: General Problems/Pain Stated Complaint: BODY ACHES/VOMITING/POSS LUPUS FLARE UP Nursing Triage Note: PATIENT HERE FOR CONCERNS ABOUT A LUPUS FLAIR UP. PATIENT HAS BEENHAVING BACK MUSCLE SPASMS, CHEST TIGHTNESS, NAUSEA, VOMITING, FATIGUE, BODY ACHES THAT HAVE BEEN GOING ON FOR 2 WEEKS. SHE WAS GIVEN MUSCLE RELAXERS BUT STATES THEY ARE NOT HELPING. Nursing Sepsis Screen: No Definite Risk Allergies and Home Medications Allergies Coded Allergies: No Known Drug Allergies (Unverified , 07/15/16) Home Medications Acetaminophen 650 Mg Tablet.er, 1,300 MG PO BID PRN for PAIN, (Reported) TAKES 2 (650MG) TABLETS Albuterol Sulfate 6.7 Gm Hfa.aer.ad, 2 PUFF INH Q6H PRN for SHORTNESS OF BREATH, (Reported) Amlodipine Besylate 10 Mg Tablet, 10 MG PO DAILY, (Reported) Amoxicillin 500 Mg Capsule, 500 MG PO TID, (Reported) 10 DAY SUPPLY FILLED 07-15-16 Aspirin 81 Mg Tablet.dr, 81 MG PO DAILY, (Reported) Baclofen 10 Mg Tablet, 10 MG PO TID Prescribed by: LORETTA IVAN on 05/10/182110 Carboxymethylcellulose Sodium 15 Ml Drops, 1-2 DROPS OU QID PRN for DRY EYES, ( Reported) Carvedilol 12.5 Mg Tablet, 12.5 MG PO BID, (Reported) Ergocalciferol 50,000 Unit Capsule, 50,000 UNIT PO Th, (Reported) Esomeprazole Magnesium 22.3 Mg Capsule.dr, 22.3 MG PO BID, (Reported) Fluoxetine HCl 10 Mg Capsule, 10 MG PO DAILY, (Reported) Fluticasone Propionate 16 Gm [place].susp, 1 SPRAY NS BID PRN for CONGESTION, ( Reported) Furosemide 40 Mg Tablet, 20 MG PO DAILY, (Reported) Hydralazine HCl 25 Mg Tablet, 25 MG PO TID PRN for BLOOD PRESSURE, (Reported) take if systolic BP >170 Hydroxychloroquine Sulfate 200 Mg Tablet, 200 MG PO BID, (Reported) Isomethept/Dichlphn/Acetaminop 1 Each Capsule, 1 CAP PO BID PRN for MIGRAINE, ( Reported) TAKE 1 CAPSULE AT ONSET OF GARCIA AND MAY REPEAT IF NEEDED, NOT TO EXCEED MORE THAN 2 CAPSULES IN ONE DAY Lisinopril 5 Mg Tablet, 30 MG PO DAILY, (Reported) TAKES 6 (5MG) TABLETS Ondansetron 4 Mg/Udtablet Tab.rapdis, 4 MG PO Q6H PRN for NAUSEA, (Reported) Ondansetron 8 Mg Tab.rapdis, 8 MG PO Q6H Prescribed by: LORETTA IVAN on 05/10/182109 Oxycodone HCl/Acetaminophen 1 Each Tablet, 1 EACH PO Q6H PRN for PAIN-MODERATE Prescribed by: VITALIY MCGOVERN on 01/20/18 155 Potassium Chloride 20 Meq Tab.er.prt, 20 MEQ PO DAILY, (Reported) Prednisone 10 Mg Tab, 20 MG PO DAILY, (Reported) Pregabalin 75 Mg Capsule, 75 MG PO HS, (Reported) Promethazine HCl 25 Mg Tablet, 25 MG PO Q6H PRN for NAUSEA/VOMITING Prescribed by: LORETTA IVAN on 05/10/182109 Sulfamethoxazole/Trimethoprim 1 Each Tablet, 0.5 TAB PO MoWeFr, (Reported) Trazodone HCl 50 Mg Tablet, 50-100 MG PO HS, (Reported) TAKES 1 TO 2 (50MG) TABLETS Past Nevzjwq-Duzxbu-Rztcdl Hx Patient Social History Alcohol Use: Denies Use Recreational Drug Use: No Smoking Status: Never a Smoker 2nd Hand Smoke Exposure: No Recent Foreign Travel: No Contact w/Someone Who Travel: No Recent Infectious Disease Expo: No Recent Hopitalizations: No Physical Abuse: No Sexual Abuse: No Immunizations Up To Date Tetanus Booster (TDap): Unknown PED Vaccines UTD: Yes Date of Pneumonia Vaccine: Feb 09, 2016 Date of Influenza Vaccine: Feb 09, 2016 Seasonal Allergies Seasonal Allergies: No Past Medical History Surgeries: Yes (3 KIDNEY BIOPSIES, SPINAL TAPS, WART REMOVAL, POWER PORT PLACEMENT) Respiratory: Yes (CPAP) Sleep Apnea Currently Using CPAP: Yes Currently Using BIPAP: No Cardiac: Yes Hypertension Neurological: Yes Headaches /Migraines Reproductive Disorders: No Female Reproductive Disorders: Denies Sexually Transmitted Disease: No HIV/AIDS: No Genitourinary: Yes Renal Failure, UTI-Chronic Gastrointestinal: Yes Gastroesophageal Reflux Musculoskeletal: Yes (LUPUS) Arthritis, Rheumatoid Arthritis Endocrine: Yes (LUPUS NEPHRITIS) Lupus HEENT: No Loss of Vision: Denies Hearing Impairment: Denies Cancer: No Psychosocial: Yes Depression Integumentary: No Blood Disorders: Yes (ANEMIA) Adverse Reaction/Blood Tranf: No Family Medical History Asthma G8 BROTHER G8 BROTHER Diabetes mellitus 19 MOTHER Hypercholesterolemia 19 MOTHER Hypertension 19 MOTHER Heart Disease, Diabetes, Hypertension Physical Exam Vital Signs Vital Signs - First Documented 05/10/18 18:30 Temp 99.4 Pulse 89 Resp 20 B/P (MAP) 165/98 (120) Pulse Ox 100 Capillary Refill : Less Than 3 Seconds Height, Weight, BMI Height: 5'8.00" Weight: 290lbs. 0oz. 131.327711al; 41.1 BMI Method:Stated Progress/Results/Core Measures Suspected Sepsis Recent Fever Within 48 Hours: No Infection Criteria Present: Suspected New Infection New/Unexplained Altered Menta: No Sepsis Screen: No Definite Risk SIRS Temperature:99.4 Pulse: 89 Respiratory Rate: 20 Laboratory Tests 05/10/18 18:30: White Blood Count 8.4 Blood Pressure 165 /98 Mean: 120 Laboratory Tests 05/10/18 18:30: Creatinine 1.28, Platelet Count 307, Total Bilirubin 0.3 Results/Orders Lab Results Laboratory Tests Test 05/10/18 18:30 Range/Units White Blood Count 8.4 4.3-11.0 10^3/uL Red Blood Count 4.87 4.35-5.85 10^6/uL Hemoglobin 12.4 11.5-16.0 G/DL Hematocrit 38 35-52 % Mean Corpuscular Volume 79 L 80-99 FL Mean Corpuscular Hemoglobin 26 25-34 PG Mean Corpuscular Hemoglobin Concent 32 32-36 G/DL Red Cell Distribution Width 16.7 H 10.0-14.5 % Platelet Count 307 130-400 10^3/uL Mean Platelet Volume 10.2 7.4-10.4 FL Neutrophils (%) (Auto) 55 42-75 % Lymphocytes (%) (Auto) 33 12-44 % Monocytes (%) (Auto) 11 0-12 % Eosinophils (%) (Auto) 1 0-10 % Basophils (%) (Auto) 1 0-10 % Neutrophils # (Auto) 4.6 1.8-7.8 X 10^3 Lymphocytes # (Auto) 2.7 1.0-4.0 X 10^3 Monocytes # (Auto) 1.0 0.0-1.0 X 10^3 Eosinophils # (Auto) 0.1 0.0-0.3 10^3/uL Basophils # (Auto) 0.1 0.0-0.1 10^3/uL Erythrocyte Sedimentation Rate 44 H 0-20 MM/HR Urine Color YELLOW Urine Clarity CLEAR Urine pH 6 5-9 Urine Specific [place] 1.025 H 1.016-1.022 Urine Protein 4+ NEGATIVE Urine Glucose (UA) NEGATIVE NEGATIVE Urine Ketones NEGATIVE NEGATIVE Urine Nitrite NEGATIVE NEGATIVE Urine Bilirubin NEGATIVE NEGATIVE Urine Urobilinogen NORMAL NORMAL MG/DL Urine Leukocyte Esterase NEGATIVE NEGATIVE Urine RBC (Auto) 3+ H NEGATIVE Urine RBC 5-10 H /HPF Urine WBC 2-5 /HPF Urine Squamous Epithelial Cells 2-5 /HPF Urine Crystals NONE /LPF Urine Bacteria FEW H /HPF Urine Casts NONE /LPF Urine Mucus NEGATIVE /LPF Urine Culture Indicated NO Sodium Level 138 135-145 MMOL/L Potassium Level 3.6 3.6-5.0 MMOL/L Chloride Level 106 98-107 MMOL/L Carbon Dioxide Level 22 21-32 MMOL/L Anion Gap 10 5-14 MMOL/L Blood Urea Nitrogen 16 7-18 MG/DL Creatinine 1.28 0.60-1.30 MG/DL Estimat Glomerular Filtration Rate 52 BUN/Creatinine Ratio 13 Glucose Level 99 70-105 MG/DL Calcium Level 9.1 8.5-10.1 MG/DL Corrected Calcium 9.4 8.5-10.1 MG/DL Magnesium Level 2.3 1.8-2.4 MG/DL Total Bilirubin 0.3 0.1-1.0 MG/DL Aspartate Amino Transf (AST/SGOT) 14 5-34 U/L Alanine Aminotransferase (ALT/SGPT) 15 0-55 U/L Alkaline Phosphatase 71 40-136 U/L C-Reactive Protein High Sensitivity 0.51 H 0.00-0.50 MG/DL Total Protein 7.2 6.4-8.2 GM/DL Albumin 3.6 3.2-4.5 GM/DL TSH [place] Testing 3.32 0.35-4.94 UIU/ML Serum Test, Qualitative NEGATIVE NEGATIVE Micro Results Microbiology 05/10/18 Influenza Types A,B Antigen (ELVIN) - Final, Complete My Orders Orders - LORETTA IVAN DO Saline Lock/Iv-Start (05/10/18 17:58) Urine Bedside (05/10/18 17:58) Cbc With Automated Diff (05/10/18 17:58) Comprehensive Metabolic Panel (05/10/18 17:58) Hs C Reactive Protein (05/10/18 17:58) Erythrocyte Sedimentation Rate (05/10/18 17:58) Magnesium (05/10/18 17:58) Thyroid Analyzer (05/10/18 17:58) Ua Culture If Indicated (05/10/18 17:58) Saline Lock/Iv-Start (05/10/18 17:58) Influenza A And B Antigens (05/10/18 17:58) Hcg,Qualitative Serum (05/10/18 18:35) Saline Lock/Iv-Start (05/10/18 19:03) Lactated Ringers (Lr 1000 Ml Iv Solution (05/10/18 19:03) Methylprednisolone Sod Succ (Solu-Medrol (05/10/18 19:03) Ondansetron Injection (Zofran Injectio (05/10/18 19:15) Chest Pa/Lat (2 View) (05/10/18 20:09) Orphenadrine Injection (Norflex Injectio (05/10/18 20:09) Promethazine Injection (Phenergan Injec (05/10/18 20:09) Fentanyl Injection (Sublimaze Injection (05/10/18 21:36) Medications Given in ED Current Medications Medications Dose Ordered Sig/Sultana Route Start Time Stop Time Status Last Admin Dose Admin Lactated Ringer's 1,000 ml @ 0 mls/hr Q0M ONCE IV 05/10/18 19:03 05/10/18 19:05 DC 05/10/18 19:25 0 MLS/HR Ondansetron HCl 4 mg ONCE ONCE IVP 05/10/18 19:15 05/10/18 19:16 DC 05/10/18 19:25 4 MG Vital Signs/I&O 05/10/18 18:30 Temp 99.4 Pulse 89 Resp 20 B/P (MAP) 165/98 (120) Pulse Ox 100 Capillary Refill : Less Than 3 Seconds Blood Pressure Mean: 120 Diagnostic Imaging Comments CXR--NO ACUTE PROCESS, PER RADIOLOGIST REPORT @ 2106 Reviewed: Reviewed by Me Departure Impression Primary Impression: LUPUS FLARE Disposition: 01 HOME, SELF-CARE Condition: Improved Departure-Patient Inst. Referrals: KATE OLIVERA MD (PCP/Family) Primary Care Physician Patient Instructions: Lupus (DC) Add. Discharge Instructions: HOME, REST LOTS OF CLEAR LIQUIDS TAKE YOUR MEDICATIONS PRESCRIBED INCREASED YOUR PREDNISONE TO 60 MG X 3 DAYS, THEN DECREASED BY 5 MG A DAY EVERY [address] FOLLOW UP WITH DR. OLIVERA AND/ OR DELFINO THIS WEEK FOR FURTHER CARE All discharge instructions reviewed with patient and/or family. Voiced understanding. Scripts Baclofen (Baclofen) 10 Mg Tablet 10 MG PO TID, #30 TAB Prov: LORETTA IVAN DO 05/10/18 Promethazine HCl (Promethazine Tablet) 25 Mg Tablet 25 MG PO Q6H PRN for NAUSEA/VOMITING, #10 TAB Prov: LORETTA IVAN DO 05/10/18 Ondansetron (Ondansetron Odt) 8 Mg Tab.rapdis 8 MG PO Q6H for Nausea/Vomiting, #10 TAB Prov: LORETTA IVAN DO 05/10/18 LORETTA IVAN DO May 10, 2018 21:05
[2018-05-10] MEDS ORDERED: ONDA8TAB13 PO (21:10)
[2018-05-10] MEDS ORDERED: PROM25TA14 PO (21:10)
[2018-05-10] MEDS ORDERED: BACL10TA PO (21:11)
[2018-05-10] MEDS ORDERED: fentaNYL INJECTION 100 MCG/2 ML AMP IVP STA (21:36)
[2018-05-10 22:08] VITALS: BP 165/98
== END 2018-05-10 22:08 | disposition home or self-care (01) ==
LOC: EDUNIT# 17:27 → ER 17:28
DX: M32.9 Systemic lupus erythematosus, unspecified (principal); G47.30 Sleep apnea, unspecified; I10 Essential (primary) hypertension; G43.909 Migraine, unspecified, not intractable, without status migrainosus; K21.9 Gastro-esophageal reflux disease without esophagitis; M06.9 Rheumatoid arthritis, unspecified; F32.9 Major depressive disorder, single episode, unspecified; D64.9 Anemia, unspecified; Z87.448 Personal history of other diseases of urinary system; Z82.49 Family history of ischemic heart disease and other diseases of the circulatory system; Z87.440 Personal history of urinary (tract) infections; Z79.51 Long term (current) use of inhaled steroids; Z79.82 Long term (current) use of aspirin; Z98.890 Other specified postprocedural states
CPT/HCPCS: 36415; 71046; 80053; 81000; 83735; 84443; 84703; 85025; 85652; 86141; 87804

== ENCOUNTER → 2018-06-12 | Outpatient (CLI) | payer OTHER ==
[~2018-06-12] MED LIST changes: -AMLO10TA6 PO; +AMLO10TA7 PO; +BACL10TA PO; +ONDA8TAB13 PO; +PROM25TA14 PO
[2018-06-12 14:38] LABS: BASOPHILS % (AUTO) 0 % (0-10); EOSINOPHILS # (AUTO) 0.1 10^3/uL (0.0-0.3); EOSINOPHILS % (AUTO) 1 % (0-10); HEMATOCRIT 40 % (35-52); HEMOGLOBIN 13.1 G/DL (11.5-16.0); LYMPHOCYTES # (AUTO) 2.3 X 10^3 (1.0-4.0); LYMPHOCYTES % (AUTO) 28 % (12-44); MEAN CORPUSCULAR HEMOGLOBIN 26 PG (25-34); MEAN CORPUSCULAR HGB CONC 33 G/DL (32-36); MEAN CORPUSCULAR VOLUME 79 FL (80-99); MEAN PLATELET VOLUME 10.3 FL (7.4-10.4); MONOCYTES # (AUTO) 0.8 X 10^3 (0.0-1.0); MONOCYTES % (AUTO) 9 % (0-12); NEUTROPHILS % (AUTO) 61 % (42-75); PLATELET COUNT 325 10^3/uL (130-400); RED CELL DISTRIBUTION WIDTH 15.9 % (10.0-14.5); WHITE BLOOD COUNT 8.2 10^3/uL (4.3-11.0)
[2018-06-12 15:10] LABS: CALCIUM 9.5 MG/DL (8.5-10.1); CREATININE SERUM 1.44 MG/DL (0.60-1.30); POTASSIUM 3.6 MMOL/L (3.6-5.0)
[2018-06-12 15:33] LABS: BILIRUBIN,URINE NEGATIVE (NEGATIVE); CLARITY,URINE CLEAR; COLOR,URINE YELLOW; GLUCOSE, URINE (UA) NEGATIVE (NEGATIVE); KETONES,URINE NEGATIVE (NEGATIVE); LEUKOCYTE ESTERASE ,URINE NEGATIVE (NEGATIVE); NITRITE,URINE NEGATIVE (NEGATIVE); PH,URINE 6.5 (5-9); PROTEIN,URINE 4+ (NEGATIVE); UROBILINOGEN,URINE NORMAL (NORMAL)
[2018-06-12 15:40] LABS: BACTERIA,URINE FEW /HPF; WBC,URINE RARE /HPF
== END ==
LOC: LAB 14:03
PROVIDERS: ATTEND Internal Medicine Rheumatology
DX: L93.0 Discoid lupus erythematosus (principal); M32.14 Glomerular disease in systemic lupus erythematosus; R79.89 Other specified abnormal findings of blood chemistry
CPT/HCPCS: 36415; 80048; 81000; 82570; 84156; 85025; 86160

== ENCOUNTER → 2019-11-30 | Outpatient (CLI) | payer OTHER ==
[~2019-11-30] MED LIST changes: +FLUO10CA30 PO; -TRAZ-189 PO; +TRZ50T PO
[2019-11-30 11:55] LABS: BASOPHILS % (AUTO) 0 % (0-10); EOSINOPHILS # (AUTO) 0.1 10^3/uL (0.0-0.3); EOSINOPHILS % (AUTO) 2 % (0-10); HEMATOCRIT 31 % (35-52); HEMOGLOBIN 10.1 G/DL (11.5-16.0); LYMPHOCYTES # (AUTO) 2.6 X 10^3 (1.0-4.0); LYMPHOCYTES % (AUTO) 34 % (12-44); MEAN CORPUSCULAR HEMOGLOBIN 26 PG (25-34); MEAN CORPUSCULAR HGB CONC 33 G/DL (32-36); MEAN CORPUSCULAR VOLUME 80 FL (80-99); MEAN PLATELET VOLUME 10.2 FL (7.4-10.4); MONOCYTES # (AUTO) 0.7 X 10^3 (0.0-1.0); MONOCYTES % (AUTO) 9 % (0-12); NEUTROPHILS # (AUTO) 4.2 X 10^3 (1.8-7.8); NEUTROPHILS % (AUTO) 55 % (42-75); PLATELET COUNT 335 10^3/uL (130-400); WHITE BLOOD COUNT 7.6 10^3/uL (4.3-11.0)
[2019-11-30 11:56] LABS: SMEAR SCAN COMMENT NO
[2019-11-30 12:02] LABS: BILIRUBIN,URINE NEGATIVE (NEGATIVE); CLARITY,URINE CLEAR; COLOR,URINE YELLOW; GLUCOSE, URINE (UA) NEGATIVE (NEGATIVE); KETONES,URINE NEGATIVE (NEGATIVE); LEUKOCYTE ESTERASE ,URINE NEGATIVE (NEGATIVE); NITRITE,URINE NEGATIVE (NEGATIVE); PROTEIN,URINE 3+ (NEGATIVE)
[2019-11-30 12:13] LABS: ALBUMIN 3.4 GM/DL (3.2-4.5); BILIRUBIN,TOTAL 0.3 MG/DL (0.1-1.0); CALCIUM 8.7 MG/DL (8.5-10.1); CREATININE SERUM 1.87 MG/DL (0.60-1.30); MAGNESIUM 2.2 MG/DL (1.6-2.4); PHOSPHORUS 3.9 MG/DL (2.3-4.7); POTASSIUM 3.6 MMOL/L (3.6-5.0); TOTAL PROTEIN 6.5 GM/DL (6.4-8.2); URIC ACID 7.3 MG/DL (2.6-7.2)
[2019-11-30 12:22] LABS: EOSINOPHILS % (MANUAL) 3 %; HYPOCHROMASIA SLIGHT; LYMPHOCYTES % (MANUAL) 35 %; MICROCYTOSIS MODERATE; MONOCYTES % (MANUAL) 6 %; NEUTROPHILS % (MANUAL) 56 %
[2019-11-30 12:30] LABS: AMORPHOUS SEDIMENT,UR RARE AMOR URATES /LPF; BACTERIA,URINE FEW /HPF
== END ==
LOC: LAB 11:09
PROVIDERS: ATTEND Internal Medicine Nephrology
DX: M32.14 Glomerular disease in systemic lupus erythematosus (principal)
CPT/HCPCS: 36415; 80053; 81000; 82306; 82550; 82570; 83735; 83970; 84100; 84156; 84550; 85007; 85027; 87088

== ENCOUNTER → 2020-01-06 | Outpatient (CLI) | payer OTHER ==
--- NOTE | 2020-01-06 13:54 | Diagnostic Imaging Report ---
EXAM: CERVICAL SPINE 3 VIEWS OR LESS INDICATION: Fall. Neck pain. COMPARISON: CT cervical spine without contrast 07/15/2016. FINDINGS: Straightening of the normal cervical lordosis. Vertebral body heights are preserved. No spondylotic change. Normal prevertebral soft tissues. Partially visualized right IJ tunneled port CVC. IMPRESSION: Straightening of the normal cervical lordosis may be due to positioning or muscle spasm. No fractures identified. Dictated by: Dictated on workstation # [id number]
--- NOTE | 2020-01-06 14:02 | Diagnostic Imaging Report ---
INDICATION: Fall with left shoulder injury. TIME OF EXAM: 01:00 p.m. FINDINGS: Three views of the left shoulder demonstrate normal glenohumeral and acromioclavicular alignment. Acromiohumeral space is normal. No fracture or dislocation is detected. IMPRESSION: No acute abnormality is detected. Dictated by: Dictated on workstation # [id number]
--- NOTE | 2020-01-06 14:24 | Diagnostic Imaging Report ---
INDICATION: Fall with low back pain. TIME OF EXAM: 01:04 p.m. FINDINGS: AP and lateral views of the lumbar spine were obtained. Curvature and alignment is normal. Vertebral body heights and disc spaces are preserved. No fracture or subluxation is identified. IMPRESSION: No acute bony abnormality is detected. Dictated by: Dictated on workstation # [id number]
--- NOTE | 2020-01-06 15:49 | Diagnostic Imaging Report ---
INDICATION: Fall and low back pain. TIME OF EXAM: 1:05 PM Frontal and lateral views of the sacrum and coccyx were obtained. Sacrococcygeal alignment is normal. No fractures are identified. Sacral arcuate lines are intact. SI joints are unremarkable. IMPRESSION: No acute bony abnormality is detected. Dictated by: Dictated on workstation # [id number]
== END ==
LOC: RAD 12:40
PROVIDERS: ATTEND Nurse Practitioner Family
DX: S49.92XA Unspecified injury of left shoulder and upper arm, initial encounter (principal); M54.2 Cervicalgia; M54.5 Low back pain; W19.XXXA Unspecified fall, initial encounter; Z95.828 Presence of other vascular implants and grafts
CPT/HCPCS: 72040; 72100; 72220; 73030

== ENCOUNTER → 2020-01-21 | Outpatient (CLI) | payer OTHER ==
--- NOTE | 2020-01-21 13:17 | Diagnostic Imaging Report ---
INDICATION: Injury to left wrist 4 days ago. TIME OF EXAM: 12:42 PM 3 views of the left wrist were obtained. FINDINGS: Distal radius and ulna are intact. Carpus is intact. Metacarpals are unremarkable. No fractures are seen. IMPRESSION: No acute bony abnormality is detected. Dictated by: Dictated on workstation # [id number]
== END ==
LOC: RAD 12:14
PROVIDERS: ATTEND Nurse Practitioner Family
DX: S69.92XA Unspecified injury of left wrist, hand and finger(s), initial encounter (principal)
CPT/HCPCS: 73110

== ENCOUNTER → 2020-02-01 | Outpatient (CLI) | payer OTHER ==
[2020-02-01 11:06] LABS: BILIRUBIN,URINE NEGATIVE (NEGATIVE); CLARITY,URINE CLEAR; COLOR,URINE YELLOW; GLUCOSE, URINE (UA) NEGATIVE (NEGATIVE); KETONES,URINE NEGATIVE (NEGATIVE); LEUKOCYTE ESTERASE ,URINE NEGATIVE (NEGATIVE); NITRITE,URINE NEGATIVE (NEGATIVE); PROTEIN,URINE 3+ (NEGATIVE)
[2020-02-01 11:10] LABS: BASOPHILS % (AUTO) 1 % (0-10); EOSINOPHILS # (AUTO) 0.2 10^3/uL (0.0-0.3); EOSINOPHILS % (AUTO) 2 % (0-10); HEMATOCRIT 35 % (35-52); HEMOGLOBIN 11.2 G/DL (11.5-16.0); LYMPHOCYTES # (AUTO) 2.8 X 10^3 (1.0-4.0); LYMPHOCYTES % (AUTO) 33 % (12-44); MEAN CORPUSCULAR HEMOGLOBIN 25 PG (25-34); MEAN CORPUSCULAR HGB CONC 32 G/DL (32-36); MEAN CORPUSCULAR VOLUME 77 FL (80-99); MEAN PLATELET VOLUME 10.7 FL (7.4-10.4); MONOCYTES # (AUTO) 0.8 X 10^3 (0.0-1.0); MONOCYTES % (AUTO) 9 % (0-12); NEUTROPHILS # (AUTO) 4.7 X 10^3 (1.8-7.8); NEUTROPHILS % (AUTO) 55 % (42-75); PLATELET COUNT 273 10^3/uL (130-400); WHITE BLOOD COUNT 8.5 10^3/uL (4.3-11.0)
[2020-02-01 11:19] LABS: BACTERIA,URINE TRACE /HPF
[2020-02-01 11:28] LABS: ALBUMIN 3.5 GM/DL (3.2-4.5); BILIRUBIN,TOTAL 0.2 MG/DL (0.1-1.0); CALCIUM 8.5 MG/DL (8.5-10.1); CREATININE SERUM 2.18 MG/DL (0.60-1.30); TOTAL PROTEIN 6.3 GM/DL (6.4-8.2)
== END ==
LOC: LAB 10:44
PROVIDERS: ATTEND Internal Medicine Rheumatology
DX: M32.9 Systemic lupus erythematosus, unspecified (principal)
CPT/HCPCS: 36415; 80053; 81000; 82570; 84156; 85025; 86160; 86225

== ENCOUNTER → 2020-02-08 | Outpatient (CLI) | payer OTHER | LOC: LABNPT 08:35 | PROVIDERS: ATTEND Family Medicine | DX: J06.9 Acute upper respiratory infection, unspecified (principal); Z20.828 Contact with and (suspected) exposure to other viral communicable diseases | CPT/HCPCS: 87635 ==

== ENCOUNTER → 2020-02-16 | Outpatient (CLI) | payer OTHER ==
--- NOTE | 2020-02-17 22:31 | NUR ---
Notified patient of Positive COVID test. She has been ill since Jan 28. This was follow up testing. She reported to have Lupus.
== END ==
LOC: LABNPT 06:41
PROVIDERS: ATTEND Family Medicine
DX: U07.1 COVID-19 (principal); J06.9 Acute upper respiratory infection, unspecified; H66.90 Otitis media, unspecified, unspecified ear

== ENCOUNTER → 2020-03-09 | Outpatient (CLI) | payer OTHER ==
[~2020-03-09] MED LIST changes: +AMLO-251 PO; -AMLO10TA7 PO; -FLUO10CA30 PO; +FLUO10CA31 PO
[2020-03-09 11:41] LABS: BILIRUBIN,URINE NEGATIVE (NEGATIVE); CLARITY,URINE CLEAR; COLOR,URINE YELLOW; GLUCOSE, URINE (UA) NEGATIVE (NEGATIVE); KETONES,URINE NEGATIVE (NEGATIVE); LEUKOCYTE ESTERASE ,URINE NEGATIVE (NEGATIVE); NITRITE,URINE NEGATIVE (NEGATIVE); PROTEIN,URINE 3+ (NEGATIVE)
[2020-03-09 11:53] LABS: HEMOGLOBIN 11.7 g/dL (11.5-16.0); MEAN PLATELET VOLUME 10.7 fL (9.0-12.2); WHITE BLOOD COUNT 6.9 10^3/uL (4.3-11.0)
[2020-03-09 11:57] LABS: BACTERIA,URINE FEW /HPF; RBC,URINE 25-50 /HPF
[2020-03-09 12:04] LABS: ALBUMIN 3.2 GM/DL (3.2-4.5); CALCIUM 8.5 MG/DL (8.5-10.1); CREATININE SERUM 2.96 MG/DL (0.60-1.30); MAGNESIUM 2.3 MG/DL (1.6-2.4); PHOSPHORUS 4.4 MG/DL (2.3-4.7); POTASSIUM 4.1 MMOL/L (3.6-5.0)
== END ==
LOC: LAB 11:00
PROVIDERS: ATTEND Internal Medicine Nephrology
DX: M32.14 Glomerular disease in systemic lupus erythematosus (principal)
CPT/HCPCS: 36415; 80048; 81000; 82040; 82570; 83735; 84100; 84156; 85027; 87088

== ENCOUNTER 2020-03-26 23:21 | Emergency (ER) | payer BC, OTHER ==
[~2020-03-26] VITALS: Ht 172.7 cm; Wt 131.5 kg
--- NOTE | 2020-03-27 00:09 | ED GU-Female ---
General Stated Complaint: URINATING BLOOD Source: patient History of Present Illness Date Seen by Provider: Mar 27, 2020 Time Seen by Provider: 23:43 Initial Comments PT ARRIVES VIA POV FROM HOME IN [place] C/O HEMATURIA TODAY STATES SHE HAS BEEN "WAKING UP IN A PANIC TO GO PEE" FOR THE LAST 2 DAYS NO PAIN ON URINATION, AND IS VOIDING A NORMAL AMOUNT C/O MILD ACHING IN BOTH HIPS NO FEVER/SWEATS/CHILLS NO ABDOMINAL PAIN NO VOMITING OR DIARRHEA HAS BEEN EATING AND DRINKING NORMALLY--LOTS OF FLUIDS PT HAS LUPUS, WITH CHRONIC RENAL FAILURE--NO DIALYSIS. PT RESTARTED CHEMO DRUGS ON 03/22/20 DUE TO INCREASED CREATININE LEVELS --CYCLOSPORINE AND MYCOPHENOLATE ( CELLCEPT ) IS SUPPOSED TO HAVE REPEAT LAB DONE THIS WEEK, AFTER BEING BACK ON CYCLOSPORINE AND CELLCEPT FOR A WEEK. MUCH LATER, SHE STATES THAT SHE HAS NOT TAKEN THE CYCLOSPORINE FOR THE LAST 3 DAYS--HAVING A HARD TIME GETTING THE PRESCRIPTION FILLED STATES THEY ALWAYS CAUSE NAUSEA, BUT HAS NOT HAD ANY VOMITING. PT BEGAN HAVING COVID-19 SYMPTOMS THE END OF , AND TESTED POSITIVE ON 02/14/20 SHE NORMALLY TAKES MAINTENANCE DOSE OF PREDNISONE 2.5 TO 5 MG DAILY, BUT DOSE WAS INCREASED TO 60 MG WHEN SHE HAD COVID-19 AND TAPERED DOWN TO 30 MG, BUT RENAL FUNCTION TESTS CONTINUED TO RISE, SO SHE WAS ADVISED TO CONTINUE PREDNISONE 30 MG, AND HAS BEEN ON THIS DOSE FOR THE LAST MONTH. 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 HAS BEEN ON THE PHONE WITH THEM OVER THE LAST 2 WEEKS, WITH REGARDS TO INCREASED KIDNEY FUNCTION. PCP: DR. OLIVERA--HAD VISIT LAST Friday03/22/20 FOR A FALL ONTO HER KNEES--XRAYS WERE NORMAL. WAS NOT SEEN FOR ANY LUPUS OR KIDNEY RELATED ISSUES. NEPHROLOGY AT : DR. BERRY LUPUS SPECIALIST: DR. KEYS Allergies and Home Medications Allergies Coded Allergies: No Known Drug Allergies (Unverified , 07/15/16) Home Medications Acetaminophen 650 Mg Tablet.er, 1,300 MG PO BID PRN for PAIN, (Reported) TAKES 2 (650MG) TABLETS Albuterol Sulfate 6.7 Gm Hfa.aer.ad, 2 PUFF INH Q6H PRN for SHORTNESS OF BREATH, (Reported) Amlodipine Besylate 10 Mg Tablet, 10 MG PO DAILY, (Reported) Amoxicillin 500 Mg Capsule, 500 MG PO TID, (Reported) 10 DAY SUPPLY FILLED 3-6-17 Aspirin 81 Mg Tablet.dr, 81 MG PO DAILY, (Reported) Baclofen 10 Mg Tablet, 10 MG PO TID Prescribed by: LORETTA IVAN on 05/10/182110 Carboxymethylcellulose Sodium 15 Ml Drops, 1-2 DROPS OU QID PRN for DRY EYES, (Reported) Carvedilol 12.5 Mg Tablet, 12.5 MG PO BID, (Reported) Ergocalciferol 50,000 Unit Capsule, 50,000 UNIT PO Th, (Reported) Esomeprazole Magnesium 22.3 Mg Capsule.dr, 22.3 MG PO BID, (Reported) Fluoxetine HCl 10 Mg Capsule, 10 MG PO DAILY, (Reported) Fluticasone Propionate 16 Gm [place].susp, 1 SPRAY NS BID PRN for CONGESTION, (R eported) Furosemide 40 Mg Tablet, 20 MG PO DAILY, (Reported) Hydralazine HCl 25 Mg Tablet, 25 MG PO TID PRN for BLOOD PRESSURE, (Reported) take if systolic BP >170 Hydroxychloroquine Sulfate 200 Mg Tablet, 200 MG PO BID, (Reported) Isomethept/Dichlphn/Acetaminop 1 Each Capsule, 1 CAP PO BID PRN for MIGRAINE, (Reported) TAKE 1 CAPSULE AT ONSET OF GARCIA AND MAY REPEAT IF NEEDED, NOT TO EXCEED MORE THAN 2 CAPSULES IN ONE DAY Lisinopril 5 Mg Tablet, 30 MG PO DAILY, (Reported) TAKES 6 (5MG) TABLETS Ondansetron 4 Mg/Udtablet Tab.rapdis, 4 MG PO Q6H PRN for NAUSEA, (Reported) Ondansetron 8 Mg Tab.rapdis, 8 MG PO Q6H Prescribed by: LORETTA IVAN on 05/10/182109 Oxycodone HCl/Acetaminophen 1 Each Tablet, 1 EACH PO Q6H PRN for PAIN-MODERATE Prescribed by: VITALIY MCGOVERN on 01/20/18 155 Potassium Chloride 20 Meq Tab.er.prt, 20 MEQ PO DAILY, (Reported) Prednisone 10 Mg Tab, 20 MG PO DAILY, (Reported) Pregabalin 75 Mg Capsule, 75 MG PO HS, (Reported) Promethazine HCl 25 Mg Tablet, 25 MG PO Q6H PRN for NAUSEA/VOMITING Prescribed by: LORETTA IVAN on 05/10/182109 Sulfamethoxazole/Trimethoprim 1 Each Tablet, 0.5 TAB PO MoWeFr, (Reported) Trazodone HCl 50 Mg Tablet, 50-100 MG PO HS, (Reported) TAKES 1 TO 2 (50MG) TABLETS Patient Home Medication List Home Medication List Reviewed: Yes Review of Systems Review of Systems Constitutional: no symptoms reported; No chills, No diaphoresis, No fever EENTM: no symptoms reported Respiratory: no symptoms reported; No cough, No short of breath Cardiovascular: no symptoms reported Gastrointestinal: see HPI Genitourinary: see HPI; denies burning, denies dysuria; hematuria, urgency Musculoskeletal: see HPI Skin: rash (MALAR RASH TO FACE) Psychiatric/Neurological: No Symptoms Reported Endocrine: No Symptoms Reported Hematologic/Lymphatic: See HPI Past Sjyegyo-Roufjh-Hqrjdv Hx Past Med/Social Hx: Reviewed and Corrections made Patient Social History Alcohol Use: Denies Use Recreational Drug Use: No Smoking Status: Never a Smoker 2nd Hand Smoke Exposure: No Recent Hopitalizations: No Immunizations Up To Date Tetanus Booster (TDap): Unknown PED Vaccines UTD: Yes Date of Pneumonia Vaccine: Feb 09, 2016 Date of Influenza Vaccine: Feb 09, 2016 Seasonal Allergies Seasonal Allergies: No Past Medical History Surgeries: Yes (POWER PORT) Joint Replacement, Orthopedic Respiratory: Yes (CPAP) Sleep Apnea Currently Using CPAP: Yes Currently Using BIPAP: No Cardiac: Yes Hypertension Neurological: Yes (HX OF ELEVATED INTRACRANIAL PRESSURE) Headaches /Migraines Reproductive Disorders: No Female Reproductive Disorders: Menstrual Problems Sexually Transmitted Disease: No HIV/AIDS: No Genitourinary: Yes Bladder Infection, Renal Failure, UTI-Chronic Gastrointestinal: Yes Gastroesophageal Reflux Musculoskeletal: Yes (LUPUS;LEFT HIP REPLACEMENT) Arthritis, Rheumatoid Arthritis Endocrine: Yes (LUPUS NEPHRITIS; OBESTIY; CHRONIC STEROID USE/CHRONIC IMMUNOSUPPRESSION) Lupus HEENT: No Loss of Vision: Denies Hearing Impairment: Denies Cancer: No Psychosocial: Yes Depression Integumentary: Yes (LUPUS RASH ON FACE/MALAR RASH) Blood Disorders: Yes (ANEMIA) Adverse Reaction/Blood Tranf: No Family Medical History Asthma G8 BROTHER G8 BROTHER Diabetes mellitus 19 MOTHER Hypercholesterolemia 19 MOTHER Hypertension 19 MOTHER Heart Disease, Diabetes, Hypertension PAST SURGICAL HISTORY: -POWER PORT PLACEMENT -KIDNEY BIOPSIES X 3 -SPINAL TAPS -WART REMOVAL -EGG RETRIEVAL. -LEFT HIP REPLACEMENT MULTIPLE TREATMENTS FOR LUPUS, ALL WITH MINIMAL SUCCESS, INCLUDING MANY CHEMOTHERAPY AGENTS AND IMMUNOSUPPRESSIVE DRUGS, WELL CHRONIC STEROID USE. Physical Exam Vital Signs Vital Signs - First Documented 03/26/20 23:40 Temp 36.4 Pulse 60 Resp 18 B/P (MAP) 151/103 (119) Pulse Ox 98 Capillary Refill : Height, Weight, BMI Height: 5'8.00" Weight: 290lbs. 0oz. [id number]; 41.1 BMI Method:Stated General Appearance: WD/WN, no apparent distress, obese, other (SMILING, VERY PLEASANT, DOES NOT APPEAR ILL OR TO BE IN ANY DISCOMFORT OR DISTRESS AT THIS TIME. ) Neck: normal inspection Cardiovascular: regular rate, rhythm, no murmur Respiratory: normal breath sounds, no respiratory distress, no accessory muscle use Gastrointestinal: non tender, soft Back: no CVA tenderness Extremities: normal inspection, no pedal edema Neurologic/Psychiatric: no motor/sensory deficits, alert, normal mood/affect, oriented x 3 Skin: normal color, warm/dry, rash (CLASSIC LUPUS MALAR RASH TO FACE) Progress/Results/Core Measures Suspected Sepsis SIRS Temperature: Pulse: Respiratory Rate: Laboratory Tests 03/27/20 00:10: White Blood Count 7.4 Blood Pressure / Mean: Laboratory Tests 03/27/20 00:10: Creatinine 3.90H, INR Comment 0.9, Platelet Count 213, Total Bilirubin 0.3 Results/Orders Lab Results Laboratory Tests Test 03/26/20 23:43 03/27/20 00:10 Range/Units Urine Color YELLOW Urine Clarity CLEAR Urine pH 6.0 5-9 Urine Specific [place] 1.010 L 1.016-1.022 Urine Protein 2+ H NEGATIVE Urine Glucose (UA) NEGATIVE NEGATIVE Urine Ketones NEGATIVE NEGATIVE Urine Nitrite NEGATIVE NEGATIVE Urine Bilirubin NEGATIVE NEGATIVE Urine Urobilinogen 0.2 < = 1.0 MG/DL Urine Leukocyte Esterase NEGATIVE NEGATIVE Urine RBC (Auto) 2+ H NEGATIVE Urine RBC 25-50 H /HPF Urine WBC 2-5 /HPF Urine Squamous Epithelial Cells 2-5 /HPF Urine Crystals NONE /LPF Urine Bacteria FEW H /HPF Urine Casts NONE /LPF Urine Mucus MODERATE H /LPF Urine Yeast FEW H /HPF Urine Culture Indicated YES White Blood Count 7.4 4.3-11.0 10^3/uL Red Blood Count 4.28 3.80-5.11 10^6/uL Hemoglobin 10.9 L 11.5-16.0 g/dL Hematocrit 35 35-52 % Mean Corpuscular Volume 82 80-99 fL Mean Corpuscular Hemoglobin 26 25-34 pg Mean Corpuscular Hemoglobin Concent 31 L 32-36 g/dL Red Cell Distribution Width 18.5 H 10.0-14.5 % Platelet Count 213 130-400 10^3/uL Mean Platelet Volume 11.2 9.0-12.2 fL Immature Granulocyte % (Auto) 0 % Neutrophils (%) (Auto) 52 42-75 % Lymphocytes (%) (Auto) 38 12-44 % Monocytes (%) (Auto) 8 0-12 % Eosinophils (%) (Auto) 2 0-10 % Basophils (%) (Auto) 1 0-10 % Neutrophils # (Auto) 3.8 1.8-7.8 10^3/uL Lymphocytes # (Auto) 2.8 1.0-4.0 10^3/uL Monocytes # (Auto) 0.6 0.0-1.0 10^3/uL Eosinophils # (Auto) 0.1 0.0-0.3 10^3/uL Basophils # (Auto) 0.0 0.0-0.1 10^3/uL Immature Granulocyte # (Auto) 0.0 0.0-0.1 10^3/uL Erythrocyte Sedimentation Rate 40 H 0-20 MM/HR Prothrombin Time 12.4 12.2-14.7 SEC INR Comment 0.9 0.8-1.4 Activated Partial Thromboplast Time 45 H 24-35 SEC Sodium Level 139 135-145 MMOL/L Potassium Level 4.1 3.6-5.0 MMOL/L Chloride Level 108 H 98-107 MMOL/L Carbon Dioxide Level 17 L 21-32 MMOL/L Anion Gap 14 5-14 MMOL/L Blood Urea Nitrogen 35 H 7-18 MG/DL Creatinine 3.90 H 0.60-1.30 MG/DL Estimat Glomerular Filtration Rate 14 BUN/Creatinine Ratio 9 Glucose Level 67 L 70-105 MG/DL Calcium Level 8.2 L 8.5-10.1 MG/DL Corrected Calcium 8.8 8.5-10.1 MG/DL Total Bilirubin 0.3 0.1-1.0 MG/DL Aspartate Amino Transf (AST/SGOT) 12 5-34 U/L Alanine Aminotransferase (ALT/SGPT) 11 0-55 U/L Alkaline Phosphatase 75 40-136 U/L C-Reactive Protein High Sensitivity 0.37 0.00-0.50 MG/DL Total Protein 6.4 6.4-8.2 GM/DL Albumin 3.2 3.2-4.5 GM/DL My Orders Orders - LORETTA IVAN DO Ed Iv/Invasive Line Start (03/26/20:43) Urine Bedside (03/26/20:43) Cbc With Automated Diff (03/26/20:43) Comprehensive Metabolic Panel (03/26/20) Hs C Reactive Protein (03/26/20:) Protime With Inr (03/26/20) Partial Thromboplastin Time (03/26/20:) Ua Culture If Indicated (03/26/20:43) Erythrocyte Sedimentation Rate (03/26/20:) Urine Culture (03/26/20:) Ceftriaxone For Iv Use (Rocephin For I (03/27/20 00:45) 1/2 Ns Iv Solution (0.45% Sodium Chlorid (03/27/20 01:30) Medications Given in ED Current Medications Medications Dose Ordered Sig/Sultana Route Start Time Stop Time Status Last Admin Dose Admin Ceftriaxone Sodium 1000 mg/ Sterile Water 10 ml @ 200 mls/hr ONCE ONCE IV 03/27/20 00:45 03/27/20 00:48 DC 03/27/20 00:41 200 MLS/HR Vital Signs/I&O 03/26/20 23:40 Temp 36.4 Pulse 60 Resp 18 B/P (MAP) 151/103 (119) Pulse Ox 98 Capillary Refill : Progress Note : Progress Note UNEVENTFUL ER STAY--NO SYMPTOMS OF ANY KIND, AND NO GROSS HEMATURIA --URINE WAS PALE YELLOW AND CLEAR. VITALS STABLE Departure Communication (Admissions) 0100--CALLED [facility]. ON COMPLETE DIVERSION AT THIS TIME. PAGING [employer] DIV[employer] CHIEF [employer]. 012--SPOKE WITH DR. 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 HE ADVISES TO HAVE PT CONTINUE CURRENT MEDICATIONS AT SAME DOSES. HE ADVISES THAT NURSE WILL CALL TOMORROW, AND FOLLOW UP WITH PT AND CONFIRM THAT ORDERS ARE ARRANGED FOR PT TO HAVE FOLLOW UP LAB DONE THIS WEEK. HE DOES NOT ADVISE ANY OTHER ANTIBIOTICS FOR UTI AT THIS TIME. Impression Primary Impression: Acute on chronic renal failure Additional Impressions: Lupus nephritis UTI (urinary tract infection) HTN (hypertension) Chronic anemia Disposition: 01 HOME, SELF-CARE Condition: Stable Departure-Patient Inst. Referrals: KATE OLIVERA MD (PCP/Family) Primary Care Physician Patient Instructions: Chronic Kidney Disease (DC), Lupus and Kidney Disease, Urinary Tract Infection, Adult (DC) Add. Discharge Instructions: CONTINUE YOUR CURRENT MEDICATIONS PRESCRIBED CALL PHARMACY IN THE MORNING TO GET CYCLOSPORINE REFILLED. CALL [facility] TOMORROW FOR FOLLOW UP AND TO ARRANGE FOR REPEAT LAB LATER THIS WEEK. INCREASE YOUR FLUID INTAKE. RETURN TO ER IF SYMPTOMS WORSEN LORETTA IVAN DO Mar 27, 2020 00:09
[2020-03-27 00:12] LABS: BILIRUBIN,URINE NEGATIVE (NEGATIVE); CLARITY,URINE CLEAR; COLOR,URINE YELLOW; GLUCOSE, URINE (UA) NEGATIVE (NEGATIVE); KETONES,URINE NEGATIVE (NEGATIVE); LEUKOCYTE ESTERASE ,URINE NEGATIVE (NEGATIVE); NITRITE,URINE NEGATIVE (NEGATIVE); PROTEIN,URINE 2+ (NEGATIVE)
--- NOTE | 2020-03-27 00:14 | NUR ---
VO FROM DR IVAN TO NO TO BEDSIDE UA FOR HCG. NEW ORDER ENTERED
[2020-03-27 00:21] LABS: BACTERIA,URINE FEW /HPF; RBC,URINE 25-50 /HPF
[2020-03-27 00:22] LABS: YEAST,URINE FEW /HPF
[2020-03-27 00:24] LABS: BASOPHILS % (AUTO) 1 % (0-10); EOSINOPHILS # (AUTO) 0.1 10^3/uL (0.0-0.3); EOSINOPHILS % (AUTO) 2 % (0-10); HEMATOCRIT 35 % (35-52); HEMOGLOBIN 10.9 g/dL (11.5-16.0); LYMPHOCYTES # (AUTO) 2.8 10^3/uL (1.0-4.0); LYMPHOCYTES % (AUTO) 38 % (12-44); MEAN CORPUSCULAR HEMOGLOBIN 26 pg (25-34); MEAN CORPUSCULAR HGB CONC 31 g/dL (32-36); MEAN CORPUSCULAR VOLUME 82 fL (80-99); MEAN PLATELET VOLUME 11.2 fL (9.0-12.2); MONOCYTES # (AUTO) 0.6 10^3/uL (0.0-1.0); MONOCYTES % (AUTO) 8 % (0-12); NEUTROPHILS # (AUTO) 3.8 10^3/uL (1.8-7.8); NEUTROPHILS % (AUTO) 52 % (42-75); PLATELET COUNT 213 10^3/uL (130-400); WHITE BLOOD COUNT 7.4 10^3/uL (4.3-11.0)
[2020-03-27 00:44] LABS: INR 0.9 (0.8-1.4); PROTHROMBIN TIME PATIENT 12.4 SEC (12.2-14.7)
[2020-03-27 00:45] LABS: ALBUMIN 3.2 GM/DL (3.2-4.5); POTASSIUM 4.1 MMOL/L (3.6-5.0)
[2020-03-27] MEDS ORDERED: cefTRIAXone FOR IV USE 1,000 MG in WATER (STERILE) FOR INJECTION 10 ML IV ONE (00:45)
[2020-03-27 00:46] LABS: CALCIUM 8.2 MG/DL (8.5-10.1)
[2020-03-27 00:47] LABS: TOTAL PROTEIN 6.4 GM/DL (6.4-8.2)
[2020-03-27 00:49] LABS: BILIRUBIN,TOTAL 0.3 MG/DL (0.1-1.0)
[2020-03-27 00:51] LABS: CREATININE SERUM 3.9 MG/DL (0.60-1.30)
[2020-03-27 00:52] LABS: ERYTHROCYTE SEDIMENTATION RATE 40 MM/HR (0-20)
[2020-03-27] MEDS ORDERED: 1/2 NS IV SOLUTION 1,000 ML IV SCH (01:30)
[2020-03-27 02:54] VITALS: BP 152/106
== END 2020-03-27 02:52 | disposition home or self-care (01) ==
LOC: EDUNIT# 23:21 → ER 23:23
DX: I12.9 Hypertensive chronic kidney disease with stage 1 through stage 4 chronic kidney disease, or unspecified chronic kidney disease (principal); M32.14 Glomerular disease in systemic lupus erythematosus; N39.0 Urinary tract infection, site not specified; D64.9 Anemia, unspecified; E66.9 Obesity, unspecified; F32.9 Major depressive disorder, single episode, unspecified; K21.9 Gastro-esophageal reflux disease without esophagitis; Z68.41 Body mass index [BMI] 40.0-44.9, adult; Z83.3 Family history of diabetes mellitus; Z82.49 Family history of ischemic heart disease and other diseases of the circulatory system; Z79.52 Long term (current) use of systemic steroids; Z79.82 Long term (current) use of aspirin
CPT/HCPCS: 36415; 80053; 81000; 85025; 85610; 85652; 85730; 86141; 87088

== ENCOUNTER → 2020-03-29 | Outpatient (CLI) | payer OTHER ==
[2020-03-29 08:40] LABS: ALBUMIN 3.1 GM/DL (3.2-4.5)
[2020-03-29 08:41] LABS: POTASSIUM 3.9 MMOL/L (3.6-5.0)
[2020-03-29 08:42] LABS: CALCIUM 8.1 MG/DL (8.5-10.1)
[2020-03-29 08:46] LABS: CREATININE SERUM 3.7 MG/DL (0.60-1.30)
== END ==
LOC: LAB 08:09
PROVIDERS: ATTEND Internal Medicine Nephrology
DX: D68.9 Coagulation defect, unspecified (principal); M32.14 Glomerular disease in systemic lupus erythematosus
CPT/HCPCS: 36415; 80048; 82040; 85610

== ENCOUNTER → 2020-05-26 | Outpatient (CLI) | payer OTHER ==
[2020-05-26 13:29] LABS: ALBUMIN 3.2 GM/DL (3.2-4.5); CALCIUM 8.8 MG/DL (8.5-10.1); CREATININE SERUM 3.13 MG/DL (0.60-1.30); POTASSIUM 3.7 MMOL/L (3.6-5.0)
== END ==
LOC: LAB 12:49
PROVIDERS: ATTEND Internal Medicine Nephrology
DX: M32.14 Glomerular disease in systemic lupus erythematosus (principal)
CPT/HCPCS: 36415; 80048; 82040

== ENCOUNTER 2020-07-16 15:32 | Emergency (ER) | payer OTHER ==
[~2020-07-16] VITALS: Ht 172.7 cm; Wt 130.6 kg
[~2020-07-16 15:32] MED LIST changes: -LISI-556 PO; +LISI-729 PO; -LISI10TA2 PO; +LISI10TA25 PO
[2020-07-16] MEDS ORDERED: fentaNYL INJECTION 100 MCG/2 ML AMP IVP ONE ×2 (16:00→16:30)
[2020-07-16] MEDS ORDERED: PROCHLORPERAZINE 10 MG/2ML INJ (COMPAZINE) IV ONE (16:00)
--- NOTE | 2020-07-16 16:02 | ED EENT ---
History of Present Illness General Chief Complaint: Ear Problems Stated Complaint: MIGRAINE/L EAR PAIN Nursing Triage Note: PT AMB TO TRIAGE WITH COMPLAINT OF LEFT EAR PAIN AND MIGRAINE. STATES LAST WEEK DIAGNOSED WITH SINUS INFECTION AND PRESCRIBED A ZPACK. PT STATES EAR PAIN HAS BEEN WORSENING. Source: patient Exam Limitations: no limitations History of Present Illness Date Seen by Provider: Jul 16, 2020 Time Seen by Provider: 16:00 Initial Comments To ER with left ear pain and a headache for 1 week. She was diagnosed with a sinus infection last week and states that the ear infection pain has been worsening. She has pain on the left side of her neck as well. No fevers. She has pain that radiates into her teeth. The headache seems to be worse when laying down. She has a history of idiopathic intracranial hypertension but that seems to have resolved itself. She does also have lupus with chronic kidney disease. She has no vision changes. Timing/Duration: gradual Severity: moderate Location: other Prearrival Treatment: no prearrival treatment Associated Symptoms: denies symptoms Allergies and Home Medications Allergies Coded Allergies: No Known Drug Allergies (Unverified , 07/15/16) Home Medications Acetaminophen 650 Mg Tablet.er, 1,300 MG PO BID PRN for PAIN, (Reported) TAKES 2 (650MG) TABLETS Albuterol Sulfate 6.7 Gm Hfa.aer.ad, 2 PUFF INH Q6H PRN for SHORTNESS OF BREATH, (Reported) Amlodipine Besylate 10 Mg Tablet, 10 MG PO DAILY, (Reported) Amoxicillin 500 Mg Capsule, 500 MG PO TID, (Reported) 10 DAY SUPPLY FILLED 07-15-16 Aspirin 81 Mg Tablet.dr, 81 MG PO DAILY, (Reported) Baclofen 10 Mg Tablet, 10 MG PO TID Prescribed by: LORETTA IVAN on 05/10/182110 Carboxymethylcellulose Sodium 15 Ml Drops, 1-2 DROPS OU QID PRN for DRY EYES, (Reported) Carvedilol 12.5 Mg Tablet, 12.5 MG PO BID, (Reported) Ergocalciferol 50,000 Unit Capsule, 50,000 UNIT PO Th, (Reported) Esomeprazole Magnesium 22.3 Mg Capsule.dr, 22.3 MG PO BID, (Reported) Fluoxetine HCl 10 Mg Capsule, 10 MG PO DAILY, (Reported) Fluticasone Propionate 16 Gm [place].susp, 1 SPRAY NS BID PRN for CONGESTION, (Reported) Furosemide 40 Mg Tablet, 20 MG PO DAILY, (Reported) Hydralazine HCl 25 Mg Tablet, 25 MG PO TID PRN for BLOOD PRESSURE, (Reported) take if systolic BP >170 Hydroxychloroquine Sulfate 200 Mg Tablet, 200 MG PO BID, (Reported) Isomethept/Dichlphn/Acetaminop 1 Each Capsule, 1 CAP PO BID PRN for MIGRAINE, (Reported) TAKE 1 CAPSULE AT ONSET OF GARCIA AND MAY REPEAT IF NEEDED, NOT TO EXCEED MORE THAN 2 CAPSULES IN ONE DAY Lisinopril 5 Mg Tablet, 30 MG PO DAILY, (Reported) TAKES 6 (5MG) TABLETS Ondansetron 4 Mg/Udtablet Tab.rapdis, 4 MG PO Q6H PRN for NAUSEA, (Reported) Ondansetron 8 Mg Tab.rapdis, 8 MG PO Q6H Prescribed by: LORETTA IVAN on 05/10/182109 Oxycodone HCl/Acetaminophen 1 Each Tablet, 1 EACH PO Q6H PRN for PAIN-MODERATE Prescribed by: VITALIY MCGOVERN on 01/20/18 1550 Potassium Chloride 20 Meq Tab.er.prt, 20 MEQ PO DAILY, (Reported) Prednisone 10 Mg Tab, 20 MG PO DAILY, (Reported) Pregabalin 75 Mg Capsule, 75 MG PO HS, (Reported) Promethazine HCl 25 Mg Tablet, 25 MG PO Q6H PRN for NAUSEA/VOMITING Prescribed by: LORETTA IVAN on 05/10/182109 Sulfamethoxazole/Trimethoprim 1 Each Tablet, 0.5 TAB PO MoWeFr, (Reported) Trazodone HCl 50 Mg Tablet, 50-100 MG PO HS, (Reported) TAKES 1 TO 2 (50MG) TABLETS Patient Home Medication List Home Medication List Reviewed: Yes Review of Systems Review of Systems Constitutional: see HPI Eyes: No Symptoms Reported Ears: See HPI Nose: no symptoms reported Mouth: no symptoms reported Throat: no symptoms reported Respiratory: no symptoms reported Cardiovascular: no symptoms reported Musculoskeletal: no symptoms reported Skin: no symptoms reported Neurological: No Symptoms Reported Hematologic/Lymphatic: No Symptoms Reported Immunological/Allergic: no symptoms reported Past Rmumqwg-Bnrokh-Hbvrzz Hx Patient Social History Alcohol Use: Denies Use Smoking Status: Never a Smoker 2nd Hand Smoke Exposure: No Recent Infectious Disease Expo: No Recent Hopitalizations: No Immunizations Up To Date Tetanus Booster (TDap): Unknown PED Vaccines UTD: Yes Date of Pneumonia Vaccine: Feb 09, 2016 Date of Influenza Vaccine: Feb 09, 2016 Seasonal Allergies Seasonal Allergies: No Past Medical History Surgeries: Yes (POWER PORT) Joint Replacement, Orthopedic Respiratory: Yes (CPAP) Sleep Apnea Currently Using CPAP: Yes Currently Using BIPAP: No Cardiac: Yes Hypertension Neurological: Yes (HX OF ELEVATED INTRACRANIAL PRESSURE) Headaches /Migraines Reproductive Disorders: No Female Reproductive Disorders: Menstrual Problems Sexually Transmitted Disease: No HIV/AIDS: No Genitourinary: Yes (MULTIPLE KIDNEY BIOPSIES) Bladder Infection, Renal Failure, UTI-Chronic Gastrointestinal: Yes Gastroesophageal Reflux Musculoskeletal: Yes (LUPUS;LEFT HIP REPLACEMENT) Arthritis, Rheumatoid Arthritis Endocrine: Yes (LUPUS NEPHRITIS; OBESTIY; CHRONIC STEROID USE/CHRONIC IMMUNOSUPPRESSION) Lupus HEENT: No Loss of Vision: Denies Hearing Impairment: Denies Cancer: No Psychosocial: Yes Depression Integumentary: Yes (LUPUS RASH ON FACE/MALAR RASH) Blood Disorders: Yes (ANEMIA) Adverse Reaction/Blood Tranf: No Family Medical History Asthma G8 BROTHER G8 BROTHER Diabetes mellitus 19 MOTHER Hypercholesterolemia 19 MOTHER Hypertension 19 MOTHER Heart Disease, Diabetes, Hypertension PAST SURGICAL HISTORY: -POWER PORT PLACEMENT -KIDNEY BIOPSIES X 3 -SPINAL TAPS -WART REMOVAL -EGG RETRIEVAL. -LEFT HIP REPLACEMENT MULTIPLE TREATMENTS FOR LUPUS, ALL WITH MINIMAL SUCCESS, INCLUDING MANY CHEMOTHERAPY AGENTS AND IMMUNOSUPPRESSIVE DRUGS, WELL CHRONIC STEROID USE. Physical Exam Vital Signs Vital Signs - First Documented 07/16/20 15:42 Temp 36.9 Pulse 90 Resp 17 B/P (MAP) 184/144 (157) Pulse Ox 100 O2 Delivery Room Air Height, Weight, BMI Height: 5'8.00" Weight: 290lbs. 0oz. 131.953538tc; 43.00 BMI Method:Stated General Appearance: WD/WN, no apparent distress Eyes: bilateral eye normal inspection, bilateral eye PERRL, bilateral eye EOMI Ears: bilateral ear auricle normal, bilateral ear canal normal, bilateral ear TM normal Mouth/Throat: normal mouth inspection, pharynx normal Neck: non-tender, full range of motion; No lymphadenopathy (R), No lymphadenopathy (L) Cardiovascular: regular rate, rhythm, no murmur Respiratory: no respiratory distress, no accessory muscle use Neurologic/Psychiatric: alert, normal mood/affect, oriented x 3 Skin: normal color, warm/dry Progress/Results/Core Measures Results/Orders Lab Results Laboratory Tests Test 07/16/20 15:58 Range/Units Sodium Level 137 135-145 MMOL/L Potassium Level 4.0 3.6-5.0 MMOL/L Chloride Level 110 H 98-107 MMOL/L Carbon Dioxide Level 15 L 21-32 MMOL/L Anion Gap 12 5-14 MMOL/L Blood Urea Nitrogen 32 H 7-18 MG/DL Creatinine 4.53 H 0.60-1.30 MG/DL Estimat Glomerular Filtration Rate 12 BUN/Creatinine Ratio 7 Glucose Level 90 70-105 MG/DL Calcium Level 8.6 8.5-10.1 MG/DL My Orders Orders - RENNY LEYVA APRN Prochlorperazine Injection (Compazine In (07/16/20 16:00) Fentanyl Injection (Sublimaze Injection (07/16/20 16:00) Ct Head Wo (07/16/20 15:59) Basic Metabolic Panel (07/16/20 16:02) Fentanyl Injection (Sublimaze Injection (07/16/20 16:30) Medications Given in ED Current Medications Medications Dose Ordered Sig/Sultana Route Start Time Stop Time Status Last Admin Dose Admin Fentanyl Citrate 50 mcg ONCE ONCE IVP 07/16/20 16:00 07/16/20 16:01 DC 07/16/20 16:12 50 MCG Prochlorperazine Edisylate 5 mg ONCE ONCE IV 07/16/20 16:00 07/16/20 16:01 DC 07/16/20 16:12 5 MG Vital Signs/I&O 07/16/20 15:42 Temp 36.9 Pulse 90 Resp 17 B/P (MAP) 184/144 (157) Pulse Ox 100 O2 Delivery Room Air Blood Pressure Mean: 157 Diagnostic Imaging Diagonstic Imaging: Xray Plain Films/CT/US/NM/MRI: chest Comments NAME: HUDSON DE PAZ MED REC#: [id number] PT STATUS: REG ER : 1995 PHYSICIAN: RENNY LEYVA APRN ADMIT DATE: 07/16/20/ER Draft Date of Exam:07/16/20 CT HEAD WO PROCEDURE: CT head without contrast. TECHNIQUE: Multiple contiguous axial images were obtained through the brain without the use of intravenous contrast. Auto Exposure Controls were utilized during the CT exam to meet ALARA standards for radiation dose reduction. INDICATION: Pain. COMPARISON: 07/15/2016. FINDINGS: No intracranial hemorrhage. No intracranial mass, mass effect, midline shift, herniation, hydrocephalus or extra-axial fluid collection. No CT evidence of an acute ischemic infarction. The orbits are unremarkable. Tiny mucous retention cyst within the left maxillary sinus. The paranasal sinuses are otherwise clear. The calvarium and extracalvarial soft tissues are unremarkable. IMPRESSION: 1. No acute intracranial abnormality. 2. Should symptoms persist, consideration for an MRI of the brain could be made. Dictated on workstation # [id number] Dict: 07/16/20 1630 Trans: 07/16/20 1635 PJE [id number] Interpreted by: JT OMALLEY MD Electronically signed by: Departure Communication (Admissions) No findings on CT. Did a cervical paraspinous muscle injection of lidocaine at the C7 level on the left. No improvement. Fentanyl and Compazine did not help. She describes it as a pressure but is mostly around her left side. Given her history of pseudotumor cerebri I did offer lumbar puncture to evaluate opening pressures and potentially therapeutic CSF drainage. Alternatively given her recent ear infection I offered some muscle relaxers given the tension she feels in her neck and stronger antibiotics. We will do a dose of Rocephin and IV Norflex and then discharged home with a muscle relaxer, tramadol and Omnicef per her choosing. She agrees to return to ER for any worsening symptoms. NAME: HUDSON DE PAZ [facility] REC#: [id number] PT STATUS: REG ER : 1995 PHYSICIAN: RENNY LEYVA APRN ADMIT DATE: 07/16/20/ER Draft Date of Exam:07/16/20 CT HEAD WO PROCEDURE: CT head without contrast. TECHNIQUE: Multiple contiguous axial images were obtained through the brain without the use of intravenous contrast. Auto Exposure Controls were utilized during the CT exam to meet ALARA standards for radiation dose reduction. INDICATION: Pain. COMPARISON: 07/15/2016. FINDINGS: No intracranial hemorrhage. No intracranial mass, mass effect, midline shift, herniation, hydrocephalus or extra-axial fluid collection. No CT evidence of an acute ischemic infarction. The orbits are unremarkable. Tiny mucous retention cyst within the left maxillary sinus. The paranasal sinuses are otherwise clear. The calvarium and extracalvarial soft tissues are unremarkable. IMPRESSION: 1. No acute intracranial abnormality. 2. Should symptoms persist, consideration for an MRI of the brain could be made. Dictated on workstation # [id number] Dict: 07/16/20 1630 Trans: 07/16/20 1635 [facility] [id number] Interpreted by: JT OMALLEY MD Electronically signed by: Impression Primary Impression: Cervicalgia Additional Impression: Otalgia of left ear Disposition: HOME, SELF-CARE Condition: Stable Departure-Patient Inst. Decision time for Depature: 17:11 Referrals: KATE OLIVERA MD (PCP/Family) Primary Care Physician Patient Instructions: NO INSTRUCTIONS GIVEN Add. Discharge Instructions: All discharge instructions reviewed with patient and/or family. Voiced understanding. Scripts Cefdinir (Cefdinir) 300 Mg Capsule 300 MG PO DAILY, #7 CAP Prov: RENNY LEYVA APRN 07/16/20 Methocarbamol (Robaxin-750) 750 Mg Tablet 750 MG PO Q8H PRN for PAIN-MODERATE (5-7), #10 TAB Prov: RENNY LEYVA APRN 07/16/20 Tramadol HCl (Ultram) 50 Mg Tablet 50 MG PO BID PRN for PAIN-SEVERE (8-10), #10 TAB Prov: RENNY LEYVA APRN 07/16/20 RENNY LEYVA APRN Jul 16, 2020 16:02
[2020-07-16 16:15] LABS: CALCIUM 8.6 MG/DL (8.5-10.1)
[2020-07-16 16:19] LABS: CREATININE SERUM 4.53 MG/DL (0.60-1.30)
--- NOTE | 2020-07-16 16:35 | Diagnostic Imaging Report ---
PROCEDURE: CT head without contrast. TECHNIQUE: Multiple contiguous axial images were obtained through the brain without the use of intravenous contrast. Auto Exposure Controls were utilized during the CT exam to meet ALARA standards for radiation dose reduction. INDICATION: Pain. COMPARISON: 07/15/2016. FINDINGS: No intracranial hemorrhage. No intracranial mass, mass effect, midline shift, herniation, hydrocephalus or extra-axial fluid collection. No CT evidence of an acute ischemic infarction. The orbits are unremarkable. Tiny mucous retention cyst within the left maxillary sinus. The paranasal sinuses are otherwise clear. The calvarium and extracalvarial soft tissues are unremarkable. IMPRESSION: 1. No acute intracranial abnormality. 2. Should symptoms persist, consideration for an MRI of the brain could be made. Dictated by: Dictated on workstation # [id number]
[2020-07-16] MEDS ORDERED: METH-313 PO (17:28)
[2020-07-16] MEDS ORDERED: CEFD300C3 PO (17:28)
[2020-07-16] MEDS ORDERED: TRAM-42 PO (17:28)
[2020-07-16] MEDS ORDERED: cefTRIAXone FOR IV USE 1,000 MG in WATER (STERILE) FOR INJECTION 10 ML IV ONE (17:30)
[2020-07-16] MEDS ORDERED: ORPHENADRINE 60 MG/2 ML (NORFLEX) AMP (ED ONLY) IV ONE (17:30)
[2020-07-16 17:47] VITALS: BP 149/109
== END 2020-07-16 17:47 | disposition home or self-care (01) ==
LOC: EDUNIT# 15:32 → ER 15:33
DX: H92.02 Otalgia, left ear (principal); M54.2 Cervicalgia; I10 Essential (primary) hypertension; G43.909 Migraine, unspecified, not intractable, without status migrainosus; F32.9 Major depressive disorder, single episode, unspecified; K21.9 Gastro-esophageal reflux disease without esophagitis; M06.9 Rheumatoid arthritis, unspecified; E66.9 Obesity, unspecified; Z96.642 Presence of left artificial hip joint; Z79.899 Other long term (current) drug therapy; Z79.82 Long term (current) use of aspirin; Z79.51 Long term (current) use of inhaled steroids; Z79.52 Long term (current) use of systemic steroids
CPT/HCPCS: 36415; 70450; 80048

== ENCOUNTER → 2020-07-25 | Outpatient (CLI) | payer OTHER ==
[~2020-07-25] MED LIST changes: +CEFD300C3 PO; +METH-313 PO; +TRAM-42 PO
[2020-07-25 12:43] LABS: CALCIUM 8.6 MG/DL (8.5-10.1); CREATININE SERUM 4.23 MG/DL (0.60-1.30); POTASSIUM 3.8 MMOL/L (3.6-5.0)
== END ==
LOC: LAB 11:53
PROVIDERS: ATTEND Internal Medicine Nephrology
DX: M32.14 Glomerular disease in systemic lupus erythematosus (principal)
CPT/HCPCS: 36415; 80048

== ENCOUNTER 2020-09-18 11:38 | Outpatient (RCR) | payer BC, OTHER ==
[2020-08-10 16:37] LABS: ALBUMIN 3.4 GM/DL (3.2-4.5)
[2020-08-10 16:38] LABS: POTASSIUM 3.7 MMOL/L (3.6-5.0); PROTHROMBIN TIME PATIENT 13.8 SEC (12.2-14.7)
[2020-08-10 16:39] LABS: CALCIUM 8.4 MG/DL (8.5-10.1)
[2020-08-10 16:43] LABS: CREATININE SERUM 4.24 MG/DL (0.60-1.30)
[2020-09-18 12:03] LABS: ALBUMIN 3.6 GM/DL (3.2-4.5)
[2020-09-18 12:04] LABS: POTASSIUM 4.1 MMOL/L (3.6-5.0)
[2020-09-18 12:05] LABS: CALCIUM 8.5 MG/DL (8.5-10.1)
[2020-09-18 12:09] LABS: CREATININE SERUM 4.51 MG/DL (0.60-1.30); PROTHROMBIN TIME PATIENT 13.5 SEC (12.2-14.7)
== END 2020-11-08 | disposition home or self-care (01) ==
LOC: LAB 11:38
PROVIDERS: ATTEND Internal Medicine Nephrology
DX: M32.14 Glomerular disease in systemic lupus erythematosus (principal); D68.9 Coagulation defect, unspecified
CPT/HCPCS: 36415; 80048; 82040; 85610

== ENCOUNTER → 2020-10-16 | Outpatient (CLI) | payer BC ==
[2020-10-16 16:36] LABS: POTASSIUM 3.8 MMOL/L (3.6-5.0)
[2020-10-16 16:38] LABS: CALCIUM 8.9 MG/DL (8.5-10.1)
[2020-10-16 16:42] LABS: CREATININE SERUM 4.39 MG/DL (0.60-1.30)
== END ==
LOC: LAB 15:11
PROVIDERS: ATTEND Internal Medicine Nephrology
DX: M32.14 Glomerular disease in systemic lupus erythematosus (principal)
CPT/HCPCS: 36415; 80048